=== PATIENT | female | born 1960 | race Caucasian/White ===

== ENCOUNTER 2016-12-29 22:26 | Emergency (ER) | payer OTHER ==
[~2016-12-29] VITALS: Ht 165.1 cm; Wt 104.8 kg
[~2016-12-29 22:26] MED LIST: ALBUAER2 INH; ASPI-435 PO; ATOR80TA PO; BUSP5TAB59 PO; CARV25TA2 PO; FENO67CA PO; FLUO40CA8 PO; FRN PO; FRS/40 PO; GABA300C19 PO; GLIP10TA9 PO; LISI-461 PO; METF1000 PO; NTRGSL/4 UT; PLV75 PO; TIZA1CAP2 PO; TRAM-10 PO; TRAZ50TA35 PO
[2016-12-29 22:33] VITALS: TEMP 37; Ht 165.1 cm; Wt 104.8 kg
[2016-12-29] MEDS ORDERED: ALBUT/IPRATROP 3MG/0.5MG NEB 3 ML VIAL INH STA (23:34)
[2016-12-29 23:44] LABS: BASO % 0.6 %; BASO ABS # 0.04 K/uL (0-0.2); COMPLETE YES; HEMATOCRIT 33.5 % (37-47); IG% 0.2 %; LYMPH % 31.3 %; LYMPH ABS # 1.99 K/uL (1.2-3.4); MEAN CELL VOLUME 90.3 fL (80-100); MEAN CORPUSCULAR HEMOGLOBIN 30.2 pg (25-34); MEAN CORPUSCULAR HGB CONC 33.4 g/dl (32-36); MEAN PLATELET VOLUME 9.8 fL (7.4-10.4); MONO % 10.2 %; NEUT % 54.7 %; PLATELET COUNT 339 K/uL (130-400); RED BLOOD COUNT 3.71 M/uL (4.2-5.4); WHITE BLOOD COUNT 6.36 K/uL (4.8-10.8)
[2016-12-30 00:04] LABS: INR 0.9 (0.9-1.1); PARTIAL THROMBOPLASTIN RATIO 0.9
[2016-12-30 00:06] LABS: BUN/CREATININE RATIO 28.5 (10-20); CREATININE 1.3 mg/dl (0.60-1.20); MAGNESIUM 1.8 mg/dl (1.8-2.4); POTASSIUM 4.6 mmol/L (3.5-5.1)
[2016-12-30] MEDS ORDERED: VNTHFA/IN INH (00:13)
[2016-12-30] MEDS ORDERED: KETO10TA PO (00:15)
[2016-12-30] MEDS ORDERED: HYDR-5688 PO (00:15)
[2016-12-30 00:16] LABS: ALB/GLOB RATIO 0.8 (0.9-2); CKMB/CK RATIO 1.5 (0-3.0); THYROID STIMULATING HORMONE 2.88 uIu/ml (0.300-4.500)
[2016-12-30] MEDS ORDERED: ACETAMINOPHEN 500 MG TAB PO STA (00:55)
[2016-12-30 01:01] VITALS: O2SAT 96
[2016-12-30 01:24] LABS: URINE APPEARANCE CLEAR (CLEAR); URINE BILIRUBIN NEG (NEG); URINE COLOR YELLOW; URINE EPITHELIAL CELL AUTO 20-30 /lpf (0-5); URINE NITRITE NEG (NEG); URINE PH 5.5 (4.5-7.5); URINE SPECIFIC GRAVITY 1.027 (1.000-1.030); UROBILINOGEN NEG (NEG); ZZUR CULT IF INDIC CLEAN CATCH NO
[2016-12-30 01:25] LABS: MANUAL MICROSCOPIC REQUIRED? NO; REVIEW REQ? NO
[2016-12-30] MEDS ORDERED: ZTHM250 PO (02:26)
--- NOTE | 2016-12-30 02:27 | EMERGENCY ROOM VISIT NOTE ---
History First contact with patient: 23:01 Chief Complaint: ILLNESS Stated Complaint: COUGHING, HEADACHE, ARMS ACHE, WEAKNESS History of Present Illness The patient is a 56 year old female who presents to the Emergency Department by private vehicle for evaluation of her cough, body aches, lightheadedness, headaches, and fevers. She reports that she's had a cough for approximately 1.5 weeks. She does have a history of COPD and uses her inhalers. She has used her inhalers without relief of symptoms. She reports that her symptoms worsened yesterday which prompted her visit to the emergency department. She was unable to establish an appointment with her primary care provider. The patient is tried no [id number] medications for her symptoms as she reports that they interact with her diagnosis of hypertension. The patient denies any blurry vision, double vision, slurred speech, facial droop, unilateral weakness/numbness, chest pain, pleuritic pain, hemoptysis, nausea, vomiting, or abdominal pain. She reports no hematuria or dysuria. Review of Systems A complete 10-point Review of Systems was discussed with the patient, with pertinent positives and negatives listed in the History of Present Illness. All remaining Review of Systems questions can be considered negative unless otherwise specified. Past Medical/Surgical History Medical Problems: (1) CAD (coronary artery disease) (2) Chronic systolic heart failure (3) CKD (chronic kidney disease), stage III (4) DM type 2 (diabetes mellitus, type 2) (5) Dyslipidemia (6) Heart disease (7) History of migraine (8) Hypertension (9) Ischemic cardiomyopathy (10) Myocardial infarction (11) OCD (obsessive compulsive disorder) (12) DANGELO (obstructive sleep apnea) Surgical Problems: (1) S/P cardiac cath Family History Heart disease Social History Smoking Status: Never Smoker Smokeless Tobacco Use: No Alcohol Use: none Drug Use: none Marital Status: Housing Status: lives with family Occupation Status: employed Current/Historical Medications Scheduled Aspirin (Aspirin 81), 81 MG PO DAILY Atorvastatin Calcium (Lipitor), 80 MG PO DAILY Azithromycin (Azithromycin), 1 TAB PO DAILY Buspirone Hcl (Buspirone Hcl), 5 MG PO BID Carvedilol (Coreg), 25 MG PO BID Clopidogrel Bisulfate (Clopidogrel), 75 MG PO QAM Fenofibrate Micronized (Tricor), 67 MG PO DAILY Fluoxetine (Prozac), 80 MG PO DAILY Furosemide (Lasix), 40 MG PO DAILY Gabapentin (Neurontin), 300 MG PO TID Glipizide (Glucotrol), 10 MG PO BID Lisinopril (Lisinopril), 10 MG PO DAILY Metformin Hcl (Glucophage), 1,000 MG PO BIDM Tizanidine Hcl (Tizanidine Hcl), 4 MG PO TID Scheduled PRN Albuterol Hfa (Ventolin Hfa), 1-2 PUFFS INH Q4 PRN for SOB/Wheezing Hydrocodone/Acetaminophen 5MG/325MG ([place] 5MG/325MG), 1 TABLET PO Q4 PRN for Pain Ketorolac (Toradol), 10 MG PO UD PRN for Migraine Nitroglycerin (Nitrostat), 0.4 MG UT UD PRN for Chest Pain Tramadol (Ultram), 50 MG PO Q6 PRN for Pain Trazodone Hcl (Trazodone), 50 MG PO HS PRN for Sleep Allergies Coded Allergies: No Known Allergies (Unverified , 12/30/16) Physical Exam Vital Signs Date Time Temp Pulse Resp B/P Pulse Ox O2 Delivery O2 Flow Rate FiO2 12/30/16 02:55 96 20 171/91 98 12/30/16 02:29 164/103 12/30/16 02:04 106 24 99 Nasal Cannula 2.0 12/30/16 01:59 159/90 12/30/16 01:34 105 22 96 Nasal Cannula 2.0 12/30/16 01:29 163/91 12/30/16 01:04 102 16 12/30/16 01:01 101 19 96 Nasal Cannula 2.0 12/30/16 01:01 96 Nasal Cannula 2.0 12/30/16 00:59 163/82 12/30/16 00:58 105 25 163/82 85 Room Air 12/30/16 00:34 101 15 94 12/30/16 00:29 126/73 12/30/16 00:26 101 27 90 12/29/16 23:59 144/72 12/29/16 23:56 99 13 93 12/29/16 23:49 96 12/29/16 23:39 95 Room Air 12/29/16 23:36 97 18 132/69 95 Room Air 12/29/16 23:35 132/69 2/26/17 22:33 37.0 100 20 135/86 92 Room Air Pain Rating (0-10): 7 Physical Exam VITAL SIGNS - Vital signs and nursing notes were reviewed. GENERAL - 56-year-old female appearing older than her stated age who is in no acute distress. Communicates well with provider and answers questions appropriately. HEAD - NC/AT. EYES - PERRL with EOMI bilaterally. Sclera anicteric. Palpebral conjunctiva pink and moist with no injection noted. EARS - No deformities of external structures noted on gross examination bilaterally. No pain elicited with palpation of the tragus bilaterally. External auditory canals without discharge or otorrhea. Tympanic membranes pearly [place] without retraction or bulging. NOSE - Midline and without cyanosis. No epistaxis or purulent drainage noted. Septum midline without deviation or septal hematoma noted. MOUTH/OROPHARYNX - Without perioral cyanosis. Buccal mucosa pink and moist and without leukoplakia. Tongue midline with equal elevation of palate bilaterally. No tonsillar hypertrophy, erythema, or exudates noted. NECK - Neck with FROM. Supple to palpation. LUNGS - Chest wall symmetric without accessory muscle use, intercostals retractions, or central cyanosis. Normal vesicular breath sounds CTA B/L. No wheezes, rales, or rhonchi appreciated. CARDIAC - RRR with S1/S2. No murmur, rubs, or gallops appreciated. No reproducible tenderness to palpation appreciated over the anterior chest wall. ABDOMEN - Abdominal contour obese and without pulsations or visible masses. BS normoactive all four quadrants. No tenderness, palpable masses, hepatosplenomegaly, or ascites noted. EXTREMITIES - No clubbing or peripheral cyanosis. No pretibial edema present. +3 /5 radial and dorsalis pedis pulses palpated throughout. +5/5 strength noted in UE/LE bilaterally. NEUROLOGIC - Cranial nerves II through XII grossly intact. Sensory intact to light touch throughout. PSYCH - A&Ox3 and cooperates fully with examiner. Pt is very pleasant and interacts well with examiner. Medical Decision & Procedures ER Provider Diagnostic Interpretation: Radiological imaging and reports were reviewed by myself. Radiologist's Interpretation as follows: CHEST ONE VIEW PORTABLE CLINICAL HISTORY: cough/fever dyspnea COMPARISON STUDY: 12/27/2015 FINDINGS: The bones soft tissues and hemidiaphragms are normal. The cardiomediastinal silhouette is normal. The lungs are clear. The pulmonary vasculature is normal. IMPRESSION: Negative chest. Laboratory Results 12/29/16 23:35 Red Blood Count 3.71, Mean Corpuscular Volume 90.3, Mean Corpuscular Hemoglobin 30.2, Mean Corpuscular Hemoglobin Concent 33.4, Mean Platelet Volume 9.8, Neutrophils (%) (Auto) 54.7, Lymphocytes (%) (Auto) 31.3, Monocytes (%) (Auto) 10.2, Eosinophils (%) (Auto) 3.0, Basophils (%) (Auto) 0.6, Neutrophils # (Auto ) 3.48, Lymphocytes # (Auto) 1.99, Monocytes # (Auto) 0.65, Eosinophils # (Auto ) 0.19, Basophils # (Auto) 0.04 12/29/16 23:35 Test 12/29/16 23:35 12/29/16 23:43 12/29/16 23:50 12/29/16 23:55 White Blood Count 6.36 K/uL (4.8-10.8) Red Blood Count 3.71 M/uL (4.2-5.4) Hemoglobin 11.2 g/dL (12.0-16.0) Hematocrit 33.5 % (37-47) Mean Corpuscular Volume 90.3 fL (80-100) Mean Corpuscular Hemoglobin 30.2 pg (25-34) Mean Corpuscular Hemoglobin Concent 33.4 g/dl (32-36) Platelet Count 339 K/uL (130-400) Mean Platelet Volume 9.8 fL (7.4-10.4) Neutrophils (%) (Auto) 54.7 % Lymphocytes (%) (Auto) 31.3 % Monocytes (%) (Auto) 10.2 % Eosinophils (%) (Auto) 3.0 % Basophils (%) (Auto) 0.6 % Neutrophils # (Auto) 3.48 K/uL (1.4-6.5) Lymphocytes # (Auto) 1.99 K/uL (1.2-3.4) Monocytes # (Auto) 0.65 K/uL (0.11-0.59) Eosinophils # (Auto) 0.19 K/uL (0-0.5) Basophils # (Auto) 0.04 K/uL (0-0.2) RDW Standard Deviation 43.4 fL (36.4-46.3) RDW Coefficient of Variation 13.3 % (11.5-14.5) Immature Granulocyte % (Auto) 0.2 % Immature Granulocyte # (Auto) 0.01 K/uL (0.00-0.02) Prothrombin Time 10.0 SECONDS (9.0-12.0) Prothromb Time International Ratio 0.9 (0.9-1.1) Activated Partial Thromboplast Time 23.6 SECONDS (21.0-31.0) Partial Thromboplastin Ratio 0.9 Anion Gap 6.0 mmol/L (3-11) Est Creatinine Clear Calc Drug Dose 58.8 ml/min Estimated GFR () 53.5 Estimated GFR (Non- 46.1 BUN/Creatinine Ratio 28.5 (10-20) Calcium Level 9.0 mg/dl (8.5-10.1) Magnesium Level 1.8 mg/dl (1.8-2.4) Total Bilirubin 0.2 mg/dl (0.2-1) Aspartate Amino Transf (AST/SGOT) 12 U/L (15-37) Alanine Aminotransferase (ALT/SGPT) 21 U/L (12-78) Alkaline Phosphatase 83 U/L (45-117) Total Creatine Kinase 71 U/L (26-192) Creatine Kinase MB 1.1 ng/ml (0.5-3.6) Creatine Kinase MB Ratio 1.5 (0-3.0) Total Protein 7.0 gm/dl (6.4-8.2) Albumin 3.0 gm/dl (3.4-5.0) Globulin 4.0 gm/dl (2.5-4.0) Albumin/Globulin Ratio 0.8 (0.9-2) Lipase 570 U/L (73-393) Thyroid Stimulating Hormone (TSH) 2.880 uIu/ml (0.300-4.500) Bedside Troponin I 0.000 ng/ml (0-0.045) Urine Color YELLOW Urine Appearance CLEAR (CLEAR) Urine pH 5.5 (4.5-7.5) Urine Specific [place] 1.027 (1.000-1.030) Urine Protein 2+ (NEG) Urine Glucose (UA) 3+ (NEG) Urine Ketones NEG (NEG) Urine Occult Blood NEG (NEG) Urine Nitrite NEG (NEG) Urine Bilirubin NEG (NEG) Urine Urobilinogen NEG (NEG) Urine Leukocyte Esterase NEG (NEG) Urine WBC (Auto) 1-5 /hpf (0-5) Urine RBC (Auto) 0-4 /hpf (0-4) Urine Hyaline Casts (Auto) 1-5 /lpf (0-5) Urine Epithelial Cells (Auto) 20-30 /lpf (0-5) Urine Bacteria (Auto) NEG (NEG) Influenza Type A Antigen Neg for Influ A (NEG) Influenza Type B Antigen Neg for Influ B (NEG) Medications Administered Medications (Trade) Dose Ordered Sig/Chantale Route Start Time Stop Time Status Last Admin Dose Admin Albuterol/ Ipratropium (Duoneb) 3 ml NOW STAT INH 12/29/16 23:34 12/29/16 23:37 DC 12/29/16 23:54 3 ML Acetaminophen (Tylenol Tab) 1,000 mg NOW STAT PO 12/30/16 00:55 12/30/16 00:56 DC 12/30/16 01:04 1,000 MG Azithromycin (Zithromax Tab) 500 mg NOW ONCE PO 12/30/16 02:30 12/30/16 02:31 DC 12/30/16 02:30 500 MG Procedure Patient was placed on the personnel monitor and monitored throughout the entire extent of their stay. In addition, the patient's pulse oximetry was monitored throughout the entire stay. Any abnormalities or aberrancies were addressed appropriately. ECG Indication: chest pain, SOB/dyspnea Rate (beats per minute): 97 Rhythm: normal sinus Findings: no acute ischemic change, no ectopy Change: no significant change (from 12/27/2015.) ED Course Patient was seen and evaluated by myself. Previous emergency department visit notes were reviewed. Labs were drawn, saline lock in place. Patient was treated with 1 DuoNeb. She claims a mild headache. She was provided 1 g of Tylenol orally. EKG and chest x-rays were obtained. Laboratory results demonstrate no acute leukocytosis, significant anemia, or bandemia. The patient has mild elevation of her creatinine which appears to be her baseline. She has no elevation of her cardiac enzymes. Troponin is negative. Lipase was mildly elevated and likely noncontributory to patient's current symptoms. Urinalysis does not suggest infection. Patient was reevaluated and feels much better at this time. She is sleeping in the room without issue. The patient was treated with azithromycin for ongoing symptoms and concerning history of COPD as well as diabetes and heart disease. She will follow up closely with her primary care provider 24-48 hours for recheck. She will return for any changing/worsening symptoms. Patient discharged home afebrile and in good condition. Medical Decision Given the patient's presentation and stated complaints, I did elect to perform the above-mentioned workup. The patient resents today with multiple symptoms consistent with upper respiratory infection. She has no fever. There is no leukocytosis. There is no acute consolidations the lungs. Cardiac enzymes and EKG are unremarkable and do not suggest acute coronary injury. The patient responded well to DuoNeb. She was treated with azithromycin and will continue on this medication for the next few days. She will follow-up with her primary care provider from today's visit or return in the setting of any changing or worsening symptoms. Patient discharged home in good condition. In the evaluation and treatment of this patient, the following differential diagnoses were considered: ME, ASC, Dysrhythmia, Angina, Mediastinitis, GERD, Esophagitis, PE, Pneumonia, Bronchitis, Costochondritis, Rib Fracture, Zoster. Impression Primary Impression: Acute bronchitis Departure Information Dispostion Home / Self-Care Condition GOOD Prescriptions Azithromycin (Azithromycin) 250 Mg Tab 1 TAB PO DAILY for 4 Days, #4 TAB Prov: Ye Sosa PA-C 12/30/16 Referrals Orion Murray D.O. (PCP) Patient Instructions Bronchitis Acute, My [facility] Additional Instructions You've been seen in the emergency department today for your cough, fever, bodyaches - acute bronchitis. Please use your albuterol inhaler 2 puffs every 4-6 hours for the next 3-4 days and then as needed for cough. You were prescribed Azithromycin to be taken as prescribed. This is an antibiotic. All antibiotics have the potential to cause diarrhea. Stop this medication and contact a medical provider if you were to develop any significant adverse side effects including: wheezing, shortness of breath, passing out, vomiting, or a diffuse rash. Always take antibiotics as directed and COMPLETE the ENTIRE course regardless of the improvement of your symptoms. For pain control, you can use the following [id number] medicines (if >12 yo): - Regular strength (325mg/tab) Tylenol (acetaminophen) 2 tabs every 4-6 hours as needed. Do not exceed 12 tablets in a 24 hour period. Avoid taking more than 4 grams (4000 mg) of Tylenol per day. This includes any other sources of acetaminophen you may take on a regular basis. - Regular strength (200 mg/tab) Advil (ibuprofen) 1-2 tabs every 4-6 hours as needed. Do not exceed a dose of 3200 mg per day. Follow-up with your primary care provider tomorrow as discussed. Return for any changing or worsening symptoms. Problem Qualifiers Primary Impression: Acute bronchitis Bronchitis organism: unspecified organism Qualified Codes: J20.9 - Acute bronchitis, unspecified
[2016-12-30] MEDS ORDERED: AZITHROMYCIN 250 MG TAB PO ONE (02:30)
[2016-12-30 02:55] VITALS: BP 171/91; PULSE 96; O2SAT 98
--- NOTE | 2016-12-30 07:03 | DIAGNOSTIC IMAGING REPORT ---
CHEST ONE VIEW PORTABLE CLINICAL HISTORY: cough/fever dyspnea COMPARISON STUDY: 12/27/2015 FINDINGS: The bones soft tissues and hemidiaphragms are normal. The cardiomediastinal silhouette is normal. The lungs are clear. The pulmonary vasculature is normal. IMPRESSION: Negative chest. Electronically signed by: Jordan Mitchell M.D. 12/30/2016 7:02 AM Dictated Date/Time: 12/30/2016 6:59 AM
[2017-05-01] MEDS ORDERED: CEPH500C PO (01:52)
[2017-05-01] MEDS ORDERED: FLUC150T PO (01:52)
== END 2016-12-30 02:56 | disposition home or self-care (01) ==
LOC: C.EDB 22:27 → C.EDA 12-30 02:56
DX: J20.9 Acute bronchitis, unspecified (principal); I25.10 Atherosclerotic heart disease of native coronary artery without angina pectoris; I50.22 Chronic systolic (congestive) heart failure; N18.3 Chronic kidney disease, stage 3 (moderate); E11.9 Type 2 diabetes mellitus without complications; E78.5 Hyperlipidemia, unspecified; G43.909 Migraine, unspecified, not intractable, without status migrainosus; I12.9 Hypertensive chronic kidney disease with stage 1 through stage 4 chronic kidney disease, or unspecified chronic kidney disease; I25.5 Ischemic cardiomyopathy; I25.2 Old myocardial infarction; F42.9 Obsessive-compulsive disorder, unspecified; G47.33 Obstructive sleep apnea (adult) (pediatric); Z82.49 Family history of ischemic heart disease and other diseases of the circulatory system; Z79.82 Long term (current) use of aspirin; Z79.899 Other long term (current) drug therapy

== ENCOUNTER 2017-05-04 21:59 | Emergency (ER) | payer OTHER ==
[~2017-05-04] VITALS: Ht 165.1 cm; Wt 100.8 kg
[~2017-05-04 21:59] MED LIST changes: -ALBUAER2 INH; +CEPH500C PO; +FLUC150T PO; -FRN PO; +HYDR-5688 PO; +KETO10TA PO; +VNTHFA/IN INH; +ZTHM250 PO
[2017-05-04 22:02] VITALS: TEMP 37.1; Ht 165.1 cm; Wt 100.8 kg
[2017-05-04] MEDS ORDERED: MoRPHine SULFATE 4 MG/ML 1 ML CARP\\VIAL IV STA (23:22)
[2017-05-04] MEDS ORDERED: SODIUM CHLORIDE 0.9% 500ML 500 ML IV STA (23:22)
[2017-05-04] MEDS ORDERED: ONDANSETRON INJ 2 MG/ML 2 ML VIAL IV STA (23:22)
[2017-05-04 23:48] LABS: BASO % 0.1 %; BASO ABS # 0.01 K/uL (0-0.2); COMPLETE YES; EOS % 0.9 %; IG% 0.2 %; LYMPH % 15.8 %; LYMPH ABS # 1.46 K/uL (1.2-3.4); MEAN CELL VOLUME 91.2 fL (80-100); MEAN CORPUSCULAR HEMOGLOBIN 30.2 pg (25-34); MEAN CORPUSCULAR HGB CONC 33.1 g/dl (32-36); MEAN PLATELET VOLUME 9.3 fL (7.4-10.4); MONO % 10.3 %; NEUT % 72.7 %; PLATELET COUNT 381 K/uL (130-400); RED BLOOD COUNT 3.51 M/uL (4.2-5.4); WHITE BLOOD COUNT 9.26 K/uL (4.8-10.8)
[2017-05-05 00:05] LABS: ALT/SGPT 16 U/L (12-78); BLOOD UREA NITROGEN 26 mg/dl (7-18); BUN/CREATININE RATIO 17.3 (10-20); CALCIUM 8.9 mg/dl (8.5-10.1); CARBON DIOXIDE 30 mmol/L (21-32); CHLORIDE 100 mmol/L (98-107); GLUCOSE 308 mg/dl (70-99); POTASSIUM 4.4 mmol/L (3.5-5.1); SODIUM 137 mmol/L (136-145)
[2017-05-05 00:07] LABS: AST/SGOT 11 U/L (15-37)
[2017-05-05 00:15] LABS: ALKALINE PHOSPHATASE 67 U/L (45-117); BETA-HYDROXYBUTYRATE 0.59 mg/dL (0.2-2.81)
[2017-05-05] MEDS ORDERED: MoRPHine SULFATE 4 MG/ML 1 ML CARP\\VIAL IV STA (01:26)
[2017-05-05] MEDS ORDERED: AMLO2.5T PO (01:44)
[2017-05-05] MEDS ORDERED: CARV12.5 PO (01:45)
[2017-05-05] MEDS ORDERED: LISI-729 PO (01:48)
[2017-05-05] MEDS ORDERED: PANT40TA PO (01:48)
[2017-05-05] MEDS ORDERED: MECL-91 PO (01:48)
[2017-05-05] MEDS ORDERED: METF500T PO (01:48)
[2017-05-05] MEDS ORDERED: FERR1TAB13 PO (01:49)
[2017-05-05] MEDS ORDERED: ONDA4TAB46 PO (01:50)
[2017-05-05] MEDS ORDERED: ASCA500 PO (01:50)
[2017-05-05] MEDS ORDERED: TRAZ100T29 PO (01:50)
[2017-05-05] MEDS ORDERED: VENL225T27 PO (01:52)
[2017-05-05 02:01] VITALS: BP 121/63; PULSE 84; O2SAT 98
--- NOTE | 2017-05-05 03:10 | EMERGENCY ROOM VISIT NOTE ---
History Report prepared by Leandro: Francis Villa Under the Supervision of: Dr. Km Young D.O. First contact with patient: 23:10 Chief Complaint: NECK PAIN Stated Complaint: DIZZINESS, PAIN IN UPPER CHEST AND ARM, NAUSEA History of Present Illness The patient is a 57 year old female who presents to the Emergency Room with complaints of worsening neck pain starting a three days ago. She rates her pain as an 8/10 in severity. The patient states that she woke up with her symptoms three days ago which prompted her to visit the ED at [facility]. She reports that she had a CT scan done which showed no significant results and she had no infections presents. The patient states that she was sent home, but went to her PCP two days ago and was given Vicodin. She reports that after her appointment, she called for a follow up with her ENT doctor in [facility], but states she is not able to get an appointment for another three days. The patient states that she has been experiencing weakness, nausea when pain gets bad, and pain when swallowing, which has been causing her to eat less. She reports that she was able to eat this morning when she took her Keflex dose and is able to swallow fluids. The patient states that her neck pain is worsened with movement of her neck which includes twisting turning bending. She reports that she tried to alleviate her pain with ice pads and hot showers, but denies any relief of symptoms. The patient admits to a history of congestive heart failure and two previous heart attacks, but denies any personal cancer history. The patient denies headache, dental pain, change in vision, fevers, chest pain, shortness of breath, vomiting, diarrhea, ear pain, pain with urination, edema to her legs, and melena. Source of History: patient Onset: three days ago Position: neck Symptom Intensity: 8/10 Timing: worsening Modifying Factors (Worsening): breathing, movement, other (pressure) Associated Symptoms: + nausea, + weakness Review of Systems See HPI for pertinent positives & negatives. A total of 10 systems reviewed and were otherwise negative. Past Medical & Surgical Medical Problems: (1) CAD (coronary artery disease) (2) Chronic systolic heart failure (3) CKD (chronic kidney disease), stage III (4) DM type 2 (diabetes mellitus, type 2) (5) Dyslipidemia (6) Heart disease (7) History of migraine (8) Hypertension (9) Ischemic cardiomyopathy (10) Myocardial infarction (11) OCD (obsessive compulsive disorder) (12) DANGELO (obstructive sleep apnea) Surgical Problems: (1) S/P cardiac cath Family History Heart disease Social History Smoking Status: Never Smoker Alcohol Use: none Drug Use: none Marital Status: Housing Status: lives with family Occupation Status: employed Current/Historical Medications Scheduled Amlodipine (Norvasc), 2.5 MG PO DAILY Ascorbic Acid (Vitamin C), 500 MG PO TID Aspirin (Aspirin 81), 81 MG PO DAILY Atorvastatin Calcium (Lipitor), 80 MG PO DAILY Buspirone Hcl (Buspirone Hcl), 10 MG PO DAILY Carvedilol (Coreg), 12.5 MG PO BID Cephalexin Monohydrate (Keflex), 500 MG PO TID Clopidogrel Bisulfate (Clopidogrel), 75 MG PO QAM Fenofibrate Micronized (Tricor), 67 MG PO DAILY Ferrous Sulfate (Kp Ferrous Sulfate), 1 TAB PO TIDM Fluconazole (Diflucan), 150 MG PO WK Fluoxetine (Prozac), 80 MG PO DAILY Furosemide (Lasix), 40 MG PO DAILY Gabapentin (Neurontin), 300 MG PO TID Glipizide (Glucotrol), 10 MG PO BID Lisinopril (Prinivil), 5 MG PO DAILY Metformin Hcl (Glucophage), 500 MG PO BID Pantoprazole (Protonix), 40 MG PO DAILY Trazodone Hcl (Trazodone), 100 MG PO HS Venlafaxine Hcl (Venlafaxine Hcl Er), 1 TAB PO DAILY Scheduled PRN Albuterol Hfa (Ventolin Hfa), 1-2 PUFFS INH Q4 PRN for SOB/Wheezing Hydrocodone/Acetaminophen 5MG/325MG ([place] 5MG/325MG), 1 TABLET PO Q6 PRN for Pain Meclizine HCl (Meclizine 25), 25 MG PO Q8 PRN for Dizziness or Vertigo Nitroglycerin (Nitrostat), 0.4 MG UT UD PRN for Chest Pain Ondansetron Hcl (Zofran), 4 MG PO Q6 PRN for Nausea Tramadol (Ultram), 50 MG PO Q6 PRN for Pain Allergies Coded Allergies: No Known Allergies (Unverified , 7/3/17) Physical Exam Vital Signs Date Time Temp Pulse Resp B/P (MAP) Pulse Ox O2 Delivery O2 Flow Rate FiO2 05/05/17 02:01 84 16 121/63 98 05/05/17 00:52 90 18 133/73 96 Room Air 05/04/17 23:44 90 18 121/71 97 Room Air 05/04/17 22:02 37.1 94 20 123/68 97 Room Air Physical Exam GENERAL: Sleeping in bed, awakens to voice, well appearing, well nourished, no distress, non-toxic EYE EXAM: normal conjunctiva, PERRL and EOM's grossly intact OROPHARYNX: no exudate, no erythema, lips, buccal mucosa, and tongue normal and mucous membranes are moist NECK: Severe tenderness upon palpation over the right anterior cervical chain with small nodular mass appreciated just above the clavicle. Pain worsens with range of motion with head in all directions. supple, no nuchal rigidity. LUNGS: Clear to auscultation. Normal chest wall mechanics HEART: no murmurs, S1 normal and S2 normal ABDOMEN: abdomen soft, non-tender, normo-active bowel sounds, no masses, no rebound or guarding. BACK: Back is symmetrical on inspection and there is no deformity, no midline tenderness, no CVA tenderness. SKIN: no rashes and no bruising UPPER EXTREMITIES: upper extremities are grossly normal. No lymphadenopathy in axilla. Radial Pulses equal bilaterally LOWER EXTREMITIES: No pitting edema. NEURO EXAM: Normal sensorium Medical Decision & Procedures ER Provider Diagnostic Interpretation: Radiology results as stated below per my review and my interpretation: CT Soft Tissue Neck WO 05/01/2017 IMPRESSION: Enlarged right level 4 cervical lymph node just lateral to the right thyroid gland measuring 2.7 x 2.4 cm. This is suspicious. Tissue sampling may be considered. No other enlarged lymph nodes are seen of the neck. No discrete mass lesions are seen of the neck. Laboratory Results 05/04/17 23:35 Red Blood Count 3.51, Mean Corpuscular Volume 91.2, Mean Corpuscular Hemoglobin 30.2, Mean Corpuscular Hemoglobin Concent 33.1, Mean Platelet Volume 9.3, Neutrophils (%) (Auto) 72.7, Lymphocytes (%) (Auto) 15.8, Monocytes (%) (Auto) 10.3, Eosinophils (%) (Auto) 0.9, Basophils (%) (Auto) 0.1, Neutrophils # (Auto ) 6.74, Lymphocytes # (Auto) 1.46, Monocytes # (Auto) 0.95, Eosinophils # (Auto ) 0.08, Basophils # (Auto) 0.01 05/04/17 23:35 Test 05/04/17 23:35 White Blood Count 9.26 K/uL (4.8-10.8) Red Blood Count 3.51 M/uL (4.2-5.4) Hemoglobin 10.6 g/dL (12.0-16.0) Hematocrit 32.0 % (37-47) Mean Corpuscular Volume 91.2 fL (80-100) Mean Corpuscular Hemoglobin 30.2 pg (25-34) Mean Corpuscular Hemoglobin Concent 33.1 g/dl (32-36) Platelet Count 381 K/uL (130-400) Mean Platelet Volume 9.3 fL (7.4-10.4) Neutrophils (%) (Auto) 72.7 % Lymphocytes (%) (Auto) 15.8 % Monocytes (%) (Auto) 10.3 % Eosinophils (%) (Auto) 0.9 % Basophils (%) (Auto) 0.1 % Neutrophils # (Auto) 6.74 K/uL (1.4-6.5) Lymphocytes # (Auto) 1.46 K/uL (1.2-3.4) Monocytes # (Auto) 0.95 K/uL (0.11-0.59) Eosinophils # (Auto) 0.08 K/uL (0-0.5) Basophils # (Auto) 0.01 K/uL (0-0.2) RDW Standard Deviation 44.2 fL (36.4-46.3) RDW Coefficient of Variation 13.2 % (11.5-14.5) Immature Granulocyte % (Auto) 0.2 % Immature Granulocyte # (Auto) 0.02 K/uL (0.00-0.02) Anion Gap 7.0 mmol/L (3-11) Est Creatinine Clear Calc Drug Dose 49.3 ml/min Estimated GFR () 44.7 Estimated GFR (Non- 38.5 BUN/Creatinine Ratio 17.3 (10-20) Calcium Level 8.9 mg/dl (8.5-10.1) Total Bilirubin 0.2 mg/dl (0.2-1) Direct Bilirubin 0.1 mg/dl (0-0.2) Aspartate Amino Transf (AST/SGOT) 11 U/L (15-37) Alanine Aminotransferase (ALT/SGPT) 16 U/L (12-78) Alkaline Phosphatase 67 U/L (45-117) Troponin I < 0.015 ng/ml (0-0.045) Total Protein 7.2 gm/dl (6.4-8.2) Albumin 2.9 gm/dl (3.4-5.0) Lipase 592 U/L (73-393) Beta-Hydroxybutyric Acid 0.59 mg/dL (0.2-2.81) Laboratory results per my review. Medications Administered Medications (Trade) Dose Ordered Sig/Chantale Route Start Time Stop Time Status Last Admin Dose Admin Sodium Chloride 500 ml @ 999 mls/hr Q31M STAT IV 05/04/17 23:22 05/04/17 23:52 DC 05/04/17 23:53 999 MLS/HR Ondansetron HCl (Zofran Inj) 4 mg NOW STAT IV 05/04/17 23:22 05/04/17 23:23 DC 05/04/17 23:52 4 MG Morphine Sulfate (MoRPHine SULFATE INJ) 4 mg NOW STAT IV 05/04/17 23:22 05/04/17 23:23 DC 05/04/17 23:53 4 MG Morphine Sulfate (MoRPHine SULFATE INJ) 2 mg NOW STAT IV 05/05/17 01:26 05/05/17 01:27 DC 05/05/17 01:43 2 MG ECG Indication: nausea Rate (beats per minute): 96 Rhythm: sinus rhythm Findings: no ectopy, other (normal axis) Comparison ECG Date: 12/29/16 Change: no significant change ED Course ED COURSE: Vital signs were reviewed and showed normal The patients medical record was reviewed The above diagnostic studies were performed and reviewed. ED treatments and interventions as stated above. 2313: The patient was evaluated in room B10. A complete history and physical examination was performed. 2322: Morphine Sulfate 4 mg IV, Zofran Injection 4 mg IV, Sodium Chloride 500 ml @ 999 mls/hr IV. 0126: Morphine Sulfate 2 mg IV. 0130: Upon reevaluation, the patient is feeling better. I discussed the findings and the treatment plan with the patient. She verbalizes agreement and understanding. She was discharged home. Medical Decision The differential diagnosis includes but is not limited to: ACD, Meningitis, lymphadenopathy, cancer, infection, metabolic abnormality, pharyngeal abscess, peritonsillar abscess. Medication Reconciliation: I attest that I have personally reviewed the patient' s current medication list. Blood pressure screening: Patient was found to have normal blood pressure on screening and does not require follow-up. Patient is a 57 year old female who presents the ER for severe right sided neck pain. She notes she was seen on at an outside hospital with a CT for the pain. She woke up with the pain. CT showed a lymph node without signs of infection. Patient is drinking without difficulty. There is no airway involvement. She is otherwise well-appearing. No obvious adenopathy elsewhere. She denies any chest pain. Troponin was negative. She notes this does not feel like her previous MIs. Labs were obtained. CBC shows an mild anemia. BMP was unremarkable along with LFTs and bilirubin. Lipase is slightly elevated at 590. BSG was also elevated. Beta hydroxybutyric acid negative. I favor the lipase is likely elevated secondary to the pain. She has no vomiting. She has no abdominal pain. I did not appreciate any large mass and consequently did not feel it is prudent to repeat CAT scan at this time. She has no fevers or white count to suggest infectious process. Patient was updated bedside and was discharged follow-up with ENT as previously set up by outside hospital. Discussed with Pt concerning signs and symptoms to watch out for. Pt was instructed to follow up with their PCP and discussed with the patient their option to return to the ED at anytime for persistent or worsening symptoms. The appropriate anticipatory guidance and out-patient management, including indications for return to the emergency department, were explained at length to the patient and understood. Impression Primary Impression: Neck pain on right side Additional Impressions: Enlarged lymph node Anemia Scribe Attestation The scribe's documentation has been prepared under my direction and personally reviewed by me in its entirety. I confirm that the note above accurately reflects all work, treatment, procedures, and medical decision making performed by me. Departure Information Dispostion Home / Self-Care Referrals Orion Murray D.O. (PCP) Forms HOME CARE DOCUMENTATION FORM, IMPORTANT VISIT INFORMATION, WORK / SCHOOL INSTRUCTIONS Patient Instructions My [facility] Additional Instructions Please follow up with your primary care doctor with in the next 24 hours. Any worsening of your symptoms, please return to the ED immediately. This includes fevers greater than 100.4, inability to open and close her mouth, trouble breathing, trouble swallowing, or any other concerning signs or symptoms from her standpoint. The CT from [place] showed a cervical lymph node just lateral to the right thyroid 2.4x2.7 cm. This is a suspicious lymph node and should be followed up on by your primary care doctor and ENT within one week. Problem Qualifiers Additional Impressions: Anemia Anemia type: unspecified type Qualified Codes: D64.9 - Anemia, unspecified
== END 2017-05-05 02:02 | disposition home or self-care (01) ==
LOC: C.EDB 22:01
DX: M54.2 Cervicalgia (principal); R59.9 Enlarged lymph nodes, unspecified; D64.9 Anemia, unspecified; I25.10 Atherosclerotic heart disease of native coronary artery without angina pectoris; I50.20 Unspecified systolic (congestive) heart failure; N18.3 Chronic kidney disease, stage 3 (moderate); E11.9 Type 2 diabetes mellitus without complications; E78.5 Hyperlipidemia, unspecified; I51.9 Heart disease, unspecified; I10 Essential (primary) hypertension; F42.9 Obsessive-compulsive disorder, unspecified; G47.30 Sleep apnea, unspecified; Z82.49 Family history of ischemic heart disease and other diseases of the circulatory system; Z79.82 Long term (current) use of aspirin

== ENCOUNTER → 2017-08-13 | Outpatient (CLI) | payer OTHER ==
[~2017-08-13] MED LIST changes: +AMLO2.5T PO; +ASCA500 PO; +CARV12.5 PO; -CARV25TA2 PO; +FERR1TAB13 PO; -KETO10TA PO; -LISI-461 PO; +LISI-729 PO; +MECL-91 PO; -METF1000 PO; +METF500T PO; +ONDA4TAB46 PO; +PANT40TA PO; -TIZA1CAP2 PO; +TRAZ100T29 PO; -TRAZ50TA35 PO; +VENL225T27 PO; -ZTHM250 PO
--- NOTE | 2017-08-13 13:40 | DIAGNOSTIC IMAGING REPORT ---
PET/CT SKULL-THIGH CLINICAL HISTORY: 57 years-old Female presenting with LYMPHOMA. TECHNIQUE: PET/CT was performed from the vertex through the proximal thighs following the intravenous administration of 12.67 mCi of F18-FDG. Blood glucose level 139 mg/dL. The injection was performed at 11:09 AM and imaging began at 12:[address] was performed for attenuation correction purposes and anatomic localization. COMPARISON: None. CT DOSE (mGy.cm): The estimated cumulative dose is 1751.21. FINDINGS: Head and neck: No FDG-avid disease or significant lymphadenopathy in the head and the neck. Asymmetric mild FDG avidity in the left fossa of [place]mull[place] likely from secretions. Chest: FDG avid lymphadenopathy in the bilateral axillae (right max SUV 9.2; left max SUV 18.8), right supraclavicular fossa (max SUV 3.7), mediastinum (right paratracheal max SUV 9.6; prevascular max SUV 11.7), and bilateral chandrakant (right max SUV 10.9; left max SUV 18.1). The majority of these nodes measure at least 10 mm in the short axis. Multichamber enlargement of the heart. Coronary artery calcification. No pericardial or pleural effusion. Mosaic attenuation in the lungs could suggest small airways disease dependent changes consistent with atelectasis. No FDG avid disease in the lung parenchyma. Abdomen and pelvis: Below the diaphragm, tracer is distributed physiologically in the gastrointestinal and genitourinary tracts. Prominent subcentimeter lymph node in the portacaval region does not demonstrate FDG avidity. FDG avid 10 mm left internal iliac lymph node (max SUV 17.1). FDG avid lymph node noted in the left inguinal region, which is not enlarged on anatomic imaging (max SUV 8.1). No other lymphadenopathy or FDG-avid disease. Cholecystectomy clips noted. Musculoskeletal: No FDG-avid or destructive bone lesion. Postsurgical changes of the lumbar spine. IMPRESSION: 1. Initial PET/CT demonstrates FDG avid comfort stations above and below the diaphragm as above, consistent with known lymphoma. Electronically signed by: Fabrice Foss M.D. 08/13/2017 1:39 PM Dictated Date/Time: 08/13/2017 1:26 PM
== END | disposition home or self-care (01) ==
LOC: C.PET 10:10
PROVIDERS: ATTEND Internal Medicine Hematology
DX: C83.31 Diffuse large B-cell lymphoma, lymph nodes of head, face, and neck (principal)

== ENCOUNTER 2017-09-01 08:58 | Day surgery (SDC) | payer OTHER ==
[~2017-09-01] VITALS: Ht 165.1 cm; Wt 90.0 kg
[~2017-09-01 08:58] MED LIST changes: +CEFAZOLIN 2000MG IV PUSH 10 ML IV SCH; +GABA-1218 PO; -GABA300C19 PO; +LACTATED RINGER'S 1000ML 1,000 ML IV SCH; +NORMOSOL R 1,000 ML IV SCH
[2017-09-01 09:43] VITALS: BP 121/78; PULSE 66; TEMP 37; O2SAT 98; Ht 165.1 cm; Wt 90.0 kg
[2017-09-01] MEDS ORDERED: MIDAZOLAM HCL 1 MG/ML 2ML VIAL ONE (10:49)
[2017-09-01] MEDS ORDERED: LIDOCAINE HCL 2% 2 ML VIAL (20MG/ML) ONE (10:49)
[2017-09-01] MEDS ORDERED: PROPOFOL IV EMULSION 10 MG/ML 20 ML VIAL IV ONE (10:49)
[2017-09-01] MEDS ORDERED: FENTANYL CITRATE INJ 50 MCG/1 ML 2 ML VIAL ONE (10:49)
--- NOTE | 2017-09-01 11:38 | History & Physical Bridge Note ---
H&P Re-Evaluation Bridge Note: I have examined the patient, reviewed the History & Physical and in the interval since the performance of the History & Physical I have noted the following changes of clinical significance: No changes noted
[2017-09-01] MEDS ORDERED: NovoLIN-R INSULIN PER UNIT CHARGE ONE (11:44)
[2017-09-01] MEDS ORDERED: ONDANSETRON INJ 2 MG/ML 2 ML VIAL IV PRN (11:45)
[2017-09-01] MEDS ORDERED: INSULIN HUMAN REGULAR SC ONE (11:45)
[2017-09-01] MEDS ORDERED: ATROPINE SULFATE 0.1 MG/ML 5ML SYR IV PRN (11:45)
[2017-09-01] MEDS ORDERED: LIDOCAINE HCL 1% 20 ML VIAL ONE (11:48)
--- NOTE | 2017-09-01 13:17 | [facility] Operative Report ---
Operative Report Operative Date Sep 01, 2017. Pre-Operative Diagnosis B-Cell Lymphoma, need for central venous access port Post-Operative Diagnosis B-Cell Lymphoma Procedure(s) Performed Infusaport Insertion Surgeon Laura Wakefield MD Market Risk Manager Surgeon(s) None Estimated Blood Loss 3cc Findings Left subclavian vein accessed with single stick, good venous blood return, wire passed easily into superior vena cava Fluids 500cc Specimens None per surgeon Drains None Anesthesia Monitored local anesthetic, 15cc of 1% Lidocaine local anesthetic Complication(s) None Disposition Recovery Room / PACU Indications Marylin Andres is a 57 year old woman with B-cell lymphoma who needs a central venous access port for chemotherapy. Indications, risks, benefits and potential complications of procedure discussed at length with patient. All questions answered to apparent satisfaction. Patient elected to proceed with the operation and freely signed the consent form. Description of Procedure Patient was brought to the operating room and identified as Marylin Andres, 62. She was placed on the operating table with a shoulder roll under her upper spine to open the left chest area. Anesthesia was induced without difficulty. The left upper chest was prepped and draped in the usual sterile fashion. A time-out was held, verifying correct patient, procedure, site, equipment available, pre op antibiotics, allergies, and personnel. An needle was used to access the left subclavian vein with a single stick; good venous blood return was appreciated. A wire was placed through the needle without resistance, and the needle was removed. Fluoroscopy was used to verify the wire was in proper position leading into the superior vena cava. A rhona was made in the skin at the puncture site. Next, the skin was anesthetized approximately 2cm inferior to the puncture site, and a 3cm incision was made. A pocket was created for the Infusaport, and the port was placed in the pocket. Next, the introducer / dilator was placed over the wire, and the wire was removed. The catheter was placed through the introducer, and verified to be in the superior vena cava by fluoroscopy. The introducer / dilator was removed. A tunnel was created from the puncture site to the port pocket, and the catheter was placed through this tunnel. The catheter tip was adjusted to be in place at the junction of the superior vena cava and right atrium, and was cut to size and attached to the Infusaport. A Mejia needle was used to test the port - which was found to draw back easily, and flushed easily with 4cc of heparinized saline. The port was then secured in the pocket with 0 Prolene in two places. The sponge and instrument counts were verified to be correct x 2 by the nurse in charge. Deep tissue was closed over the port using 2-0 vicryl in interrupted fashion. Dermis was approximated with 3-0 vicryl in interrupted fashion. 4-0 Monocryl was then used to close the skin in running fashion. Steri strips and a sterile dressing were then applied. Patient was then awakened from anesthesia without difficulty, and was taken to PACU in good condition, having suffered no untoward events. I attest to the content of the Intraoperative Record and any orders documented therein. Any exceptions are noted below.
[2017-09-01] MEDS ORDERED: OXYC-57 PO (13:18)
--- NOTE | 2017-09-01 13:23 | Discharge Instructions ---
Discharge Instructions Date of Service Sep 01, 2017. 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 -You may remove the outer dressing in 48 hours; please leave the steri strips ( small white band-aids) in place - these will fall off on their own over time. -You may shower prior to removing the outer dressing, just try to avoid direct water stream onto the dressing. Once dressing is removed, you may shower with the steri-strips in place - just allow warm, soapy water to wash gently over the incision. Do not scrub. Do not soak, as in a bathtub or swimming pool. -You were given a prescription for Percocet; you may take this for any pain that is not controlled with Tylenol or Ibuprofen. Do not drive if taking the Percocet. -You may resume your plavix tomorrow, 09/02/17 -You do not need to schedule a follow up appointment with Dr. Wakefield. However, you may call the clinic at any time with questions or concerns: . Current Hospital Diet Patient's current hospital diet: Discharge Diet Recommended Diet: Regular Diet Procedures Procedures Performed: Infusaport Insertion Pending Studies Studies pending at discharge: no Medical Emergencies . Who to Call and When: Medical Emergencies: If at any time you feel your situation is an emergency, please call 911 immediately. . Non-Emergent Contact Non-Emergency issues call your: Primary Care Provider, Surgeon Call Non-Emergent contact if: temperature is above 101, your pain is not controlled, your pain is worsening, wound has increased drainage, wound has increased redness, wound has increased pain . "Provider Documentation" section prepared by Laura Wakefield. . VTE Core Measure Inpt VTE Proph given/why not?: SCD's [place] Drug Monitoring Program Search Results: patient reviewed within database, no issues identified
[2017-09-01] MEDS: FENTANYL CITRATE INJ 50 MCG/1 ML 2 ML VIAL IV PRN ×2 (13:30→13:37)
--- NOTE | 2017-09-01 13:31 | DIAGNOSTIC IMAGING REPORT ---
CHEST ONE VIEW PORTABLE HISTORY: 57 years-old Female Evaluate for pneumothorax status post left subclavian Hojysq-r-Vjwh placement. B-cell lymphoma COMPARISON: Chest radiograph 12/29/2016 TECHNIQUE: Portable upright AP view of the chest FINDINGS: Cardiac silhouette is moderately enlarged. Status post placement of a left subclavian Maxqfr-e-Nqgo catheter with distal tip terminating to the right of midline in the region of the mid SVC. No postprocedural pneumothorax identified. Pulmonary vascular congestion without overt pulmonary edema. No pleural effusion or focal airspace consolidation. Bones are grossly intact. Fusion hardware of the thoracolumbar spine is partially imaged. IMPRESSION: Status post placement of a left subclavian Bbnqxk-h-Cets catheter with distal tip terminating in the region of the mid SVC. No postprocedural pneumothorax. The above report was generated using voice recognition software. It may contain grammatical, syntax or spelling errors. Electronically signed by: Demetrio Gaines M.D. 09/01/2017 1:29 PM Dictated Date/Time: 09/01/2017 1:28 PM
[2017-09-01 14:40] VITALS: BP 119/70; PULSE 95; TEMP 36.8; O2SAT 97
[2017-09-01 15:10] VITALS: BP 118/70; PULSE 97; TEMP 36.8; O2SAT 95
--- NOTE | 2017-09-01 15:32 | Anesthesiology Progress Note ---
Anesthesia Post Op Note Date & Time Sep 01, 2017 at 15:32 Vital Signs Pain Intensity: 0 Vital Signs Past 12 Hours Date Time Temp Pulse Resp B/P (MAP) Pulse Ox O2 Delivery O2 Flow Rate FiO2 09/01/17 15:10 36.8 97 18 118/70 95 Room Air 09/01/17 14:40 36.8 95 18 119/70 97 Room Air 09/01/17 14:25 96 16 116/72 93 09/01/17 14:15 99 16 119/85 98 Nasal Cannula 2 09/01/17 14:05 92 16 132/90 98 Nasal Cannula 2 09/01/17 13:55 95 16 133/86 99 Nasal Cannula 2 09/01/17 13:50 36.2 98 16 135/92 99 Nasal Cannula 2 09/01/17 13:40 101 16 100/73 94 Room Air 09/01/17 13:30 95 16 117/79 94 Room Air 09/01/17 13:20 97 16 125/83 99 Oxymask 10 09/01/17 13:10 97 16 114/78 100 Oxymask 10 09/01/17 13:03 36 97 16 113/63 98 Oxymask 10 09/01/17 09:43 37 66 18 121/78 (92) 98 Room Air Notes Mental Status: alert / awake / arousable, participated in evaluation Pt Amnestic to Procedure: Yes Nausea / Vomiting: adequately controlled Pain: adequately controlled Airway Patency, RR, SpO2: stable & adequate BP & HR: stable & adequate Hydration State: stable & adequate Anesthetic Complications: no major complications apparent
== END 2017-09-01 15:22 | disposition home or self-care (01) ==
LOC: C.ACU 08:58
PROVIDERS: ATTEND Student in an Organized Health Care Education/Training Program
DX: C83.31 Diffuse large B-cell lymphoma, lymph nodes of head, face, and neck (principal); E11.9 Type 2 diabetes mellitus without complications; I10 Essential (primary) hypertension; Z79.899 Other long term (current) drug therapy

== ENCOUNTER 2017-09-09 20:52 | Inpatient (IN) | payer OTHER ==
[~2017-09-09] VITALS: Ht 165.1 cm; Wt 112.0 kg
[~2017-09-09 20:52] MED LIST changes: -CEFAZOLIN 2000MG IV PUSH 10 ML IV SCH; -CEPH500C PO; -FLUC150T PO; -LACTATED RINGER'S 1000ML 1,000 ML IV SCH; -NORMOSOL R 1,000 ML IV SCH; +OXYC-57 PO; -PANT40TA PO
[2017-09-09] MEDS ORDERED: ACETAMINOPHEN 500 MG TAB PO STA (21:05)
[2017-09-09] MEDS ORDERED: HYDROCODONE/HOMATROPINE SYRUP 5MG/1.5MG 5ML UDP PO STA (21:05)
[2017-09-09] MEDS ORDERED: ALBUT/IPRATROP 3MG/0.5MG NEB 3 ML VIAL INH ONE (21:15)
--- NOTE | 2017-09-09 21:21 | EMERGENCY ROOM VISIT NOTE ---
History Report prepared by Leandro: Amy German Under the Supervision of: Dr. Hi Purvis M.D. First contact with patient: 21:00 Chief Complaint: RESPIRATORY PROBLEMS Stated Complaint: CANT BREATHE,JOINTS HURT History of Present Illness The patient is a 57 year old female who presents to the Emergency Room with complaints of worsening respiratory problems starting today. The patient states that she has stage 3 large cell lymphoma. She reports that she tried to lie down to sleep and couldn't. She states that every time she coughs, she feels like she is suffocating. The patient notes that she has tried using her O2 that she has for sleeping and her inhaler with no relief. The patient complains of achy joints, fever, and producing phlegm with her cough. The patient denies receiving chemotherapy or radiation and use of Tylenol or Ibuprofen. She notes that she just got her port placed. She states that she came to the ED because she called her doctor who told her to come in. Source of History: patient Onset: today Position: other (global) Quality: other (global) Timing: worsening Associated Symptoms: + fevers, + cough, + SOB Note: The patient complains of achy joints and the production of phlegm with her cough. The patient denies receiving chemotherapy or radiation and use of Tylenol or Ibuprofen. Review of Systems See HPI for pertinent positives & negatives. A total of 10 systems reviewed and were otherwise negative. Past Medical & Surgical Medical Problems: (1) CAD (coronary artery disease) (2) Chronic systolic heart failure (3) CKD (chronic kidney disease), stage III (4) DM type 2 (diabetes mellitus, type 2) (5) Dyslipidemia (6) Dyspnea (7) Heart disease (8) History of migraine (9) Hypertension (10) Ischemic cardiomyopathy (11) Myocardial infarction (12) OCD (obsessive compulsive disorder) (13) DANGELO (obstructive sleep apnea) Surgical Problems: (1) S/P cardiac cath Family History Heart disease Social History Smoking Status: Never Smoker Alcohol Use: none Drug Use: none Marital Status: Housing Status: lives with family Occupation Status: employed Current/Historical Medications Scheduled Amlodipine (Norvasc), 2.5 MG PO DAILY Ascorbic Acid (Vitamin C), 500 MG PO TID Aspirin (Aspirin 81), 81 MG PO DAILY Atorvastatin Calcium (Lipitor), 80 MG PO DAILY Buspirone Hcl (Buspirone Hcl), 2 TAB PO BID Carvedilol (Coreg), 1 TAB PO BID Clopidogrel Bisulfate (Clopidogrel), 75 MG PO QAM Fenofibrate Micronized (Tricor), 67 MG PO DAILY Furosemide (Lasix), 40 MG PO DAILY Gabapentin (Neurontin), 300 MG PO TID Glipizide (Glucotrol), 2 TAB PO BID Insulin Detemir (Levemir Flextouch), 10 HS Lisinopril (Prinivil), 5 MG PO DAILY Metformin Hcl (Glucophage), 1,000 MG PO BID Trazodone Hcl (Desyrel), 50 MG PO HS Venlafaxine Hcl (Effexor Xr), 1 CAP PO DAILY Venlafaxine Hcl (Effexor Xr), 1 CAP PO DAILY Scheduled PRN Albuterol Hfa (Ventolin Hfa), 1-2 PUFFS INH Q4 PRN for SOB/Wheezing Hydrocodone/Acetaminophen 5MG/325MG ([place] 5MG/325MG), 2 TABLET PO Q6 PRN for Pain Hydroxyzine Pamoate (Vistaril), 1 CAP PO Q6H PRN for Anxiety/Agitation Ketorolac (Toradol), 10 MG PO UD PRN for Pain Lorazepam (Lorazepam), 0.5 MG PO Q6H PRN for Anxiety/Agitation Nitroglycerin (Nitrostat), 0.4 MG UT UD PRN for Chest Pain Allergies Coded Allergies: Adhesives (Verified Allergy, Unknown, RASH, 09/09/17) Physical Exam Vital Signs Date Time Temp Pulse Resp B/P (MAP) Pulse Ox O2 Delivery O2 Flow Rate FiO2 09/09/17 22:30 92 Nasal Cannula 2.0 09/09/17 22:22 129 26 126/75 88 Room Air 09/09/17 22:01 131 20 96 Room Air 09/09/17 21:53 Room Air 09/09/17 21:49 126 09/09/17 21:22 99 Room Air 09/09/17 20:56 37.5 136 20 169/96 94 Room Air Physical Exam GENERAL: Patient is a healthy-appearing well-nourished, coughing on exam HEAD: Normocephalic atraumatic EYES: Ocular movements intact pupils equal and react to light OROPHARYNX mucous membranes are moist no exudates present no erythema or edema present NECK: Supple no nuchal rigidity CHEST: Good equal expansion, port in place in left chest wall LUNGS: Clear and equal to auscultation CARDIAC: Normal S1 and S2 ABDOMEN: Soft nontender no guarding BACK: No CVA tenderness EXTREMITIES: No pain upon palpation normal muscle strength in all groups no clubbing cyanosis or edema NEURO: Patient is following commands and answering questions appropriately. Alert and oriented x3 Cranial Nerves 2-12 grossly intact Medical Decision & Procedures ER Provider Diagnostic Interpretation: Radiology results as stated below per my review and radiologist interpretation: CHEST ONE VIEW PORTABLE HISTORY: Short of breath. COMPARISON: Chest 09/01/2017. FINDINGS: No pneumothorax. Trace right pleural effusion. The heart remains mildly enlarged. Diffuse interstitial and vascular thickening suggestive of mild congestive change. Left basilar linear densities favor subsegmental atelectasis. Left subclavian Port-A-Cath terminates at the SVC. Thoracolumbar spinal fusion hardware is noted. IMPRESSION: Cardiomegaly, mild congestive change, and a trace right pleural effusion. Electronically signed by: Remy Jimenez M.D. 09/09/2017 10:14 PM Dictated Date/Time: 09/09/2017 10:13 PM CHEST CTA for PULMONARY ARTERIES CT DOSE: 719.80 mGy.cm HISTORY: Short of breath. TECHNIQUE: Multiaxial CT images of the chest were performed following the intravenous administration of contrast to evaluate the pulmonary arteries. Maximal intensity projection images were also obtained. A dose lowering technique was utilized adhering to the principles of ALARA. COMPARISON STUDY: Chest 09/09/2017. FINDINGS: The heart is mildly enlarged. Retrograde opacification into the hepatic veins. Small bilateral pleural effusions. Normal caliber thoracic aorta with no evidence for dissection. No hepatic or splenic masses. Posterior fusion within the lower thoracic spine. There is axillary, mediastinal, bilateral hilar lymphadenopathy. This is consistent with the patient's history of lymphoma. All of these lymph nodes have increased in size from the recent PET/CT. For comparative purposes the dominant right axillary lymph node measures 3.1 x 2.1 cm. This previously measured 2.4 x 1.2 cm. Left subclavian Port-A-Cath terminates in the SVC. No pneumothorax. The central airways are slightly narrowed due to the hilar lymphadenopathy. Diffuse interlobular septal thickening and mild perihilar groundglass airspace opacities. This likely represents pulmonary edema. No pneumothorax. No filling defects within the pulmonary arteries to suggest pulmonary embolus. IMPRESSION: 1. No evidence for pulmonary embolus. 2. Diffuse interlobular septal thickening with perihilar groundglass airspace opacities, cardiomegaly, and small bilateral pleural effusions. This likely represents pulmonary edema. 3. Progressive lymphadenopathy within the chest consistent with the patient's history of lymphoma. Electronically signed by: Remy Jimenez M.D. 09/09/2017 10:45 PM Dictated Date/Time: 09/09/2017 10:37 PM Laboratory Results Test 09/09/17 21:30 09/09/17 21:35 09/09/17 21:37 09/09/17 21:45 Immature Granulocyte % (Auto) 0.3 % White Blood Count 13.88 K/uL (4.8-10.8) Red Blood Count 3.68 M/uL (4.2-5.4) Hemoglobin 11.0 g/dL (12.0-16.0) Hematocrit 32.7 % (37-47) Mean Corpuscular Volume 88.9 fL (80-100) Mean Corpuscular Hemoglobin 29.9 pg (25-34) Mean Corpuscular Hemoglobin Concent 33.6 g/dl (32-36) Platelet Count 324 K/uL (130-400) Mean Platelet Volume 9.8 fL (7.4-10.4) Neutrophils (%) (Auto) 78.8 % Lymphocytes (%) (Auto) 14.1 % Monocytes (%) (Auto) 6.1 % Eosinophils (%) (Auto) 0.6 % Basophils (%) (Auto) 0.1 % Neutrophils # (Auto) 10.93 K/uL (1.4-6.5) Lymphocytes # (Auto) 1.96 K/uL (1.2-3.4) Monocytes # (Auto) 0.85 K/uL (0.11-0.59) Eosinophils # (Auto) 0.08 K/uL (0-0.5) Basophils # (Auto) 0.02 K/uL (0-0.2) Immature Granulocyte # (Auto) 0.04 K/uL (0.00-0.02) Total Bilirubin 0.3 mg/dl (0.2-1) Aspartate Amino Transf (AST/SGOT) 15 U/L (15-37) Alanine Aminotransferase (ALT/SGPT) 18 U/L (12-78) Alkaline Phosphatase 104 U/L (45-117) Total Creatine Kinase 102 U/L (26-192) Creatine Kinase MB 1.5 ng/ml (0.5-3.6) Creatine Kinase MB Ratio 1.5 (0-3.0) Pro-B-Type Natriuretic Peptide 2648 pg/ml (0-900) Total Protein 7.1 gm/dl (6.4-8.2) Albumin 2.9 gm/dl (3.4-5.0) Globulin 4.2 gm/dl (2.5-4.0) Albumin/Globulin Ratio 0.7 (0.9-2) Bedside D-Dimer > 450 ng/mlFEU (0-450) Bedside Hemoglobin 11.2 g/dl (12.0-16.0) Bedside Hematocrit 33 % (37-47) Bedside Sodium 137 mEq/L (135-144) Bedside Potassium 4.5 mEq/L (3.3-5.0) Bedside Chloride 102 mEq/L (101-112) Bedside Total CO2 25 mEq/l (24-31) Bedside Blood Urea Nitrogen 25 mg/dl (7-18) Bedside Creatinine 1.0 mg/dl (0.6-1.3) Bedside Glucose (other) 349 mg/dl (70-99) Bedside Ionized Calcium (Patty) 1.15 mmol/l (1.12-1.32) Influenza Type A (RT-PCR) Neg for Influ A (NEG) Influenza Type A Antigen Neg for Influ A (NEG) Influenza Type B Antigen Neg for Influ B (NEG) Influenza Type B (RT-PCR) Neg for Influ B (NEG) Labs reviewed by ED physician. Medications Administered Medications (Trade) Dose Ordered Sig/Chantale Route Start Time Stop Time Status Last Admin Dose Admin Acetaminophen (Tylenol Tab) 1,000 mg NOW STAT PO 09/09/17 21:05 09/09/17 21:09 DC 09/09/17 21:31 1,000 MG Hydrocodone Bit/ Homatropine Methylb (Hycodan Syrup) 5 ml NOW STAT PO 09/09/17 21:05 09/09/17 21:09 DC 09/09/17 21:31 5 ML Levalbuterol (Xopenex 1.25MG/ 3ML Neb) 1.25 mg NOW STAT INH 09/09/17 21:38 09/09/17 21:40 DC 09/09/17 22:00 1.25 MG Levofloxacin (Levaquin / D5W) 500 mg NOW STAT IV 09/09/17 21:40 09/09/17 21:42 DC 09/09/17 22:21 500 MG Vancomycin HCl (Vancomycin 1gm/ 270ml Nss) 1 gm NOW STAT IV 09/09/17 21:40 09/09/17 21:42 DC 09/09/17 22:21 1 GM Insulin Human Regular (novoLIN-R) 10 units NOW STAT SC 09/09/17 21:49 09/09/17 21:50 DC 09/09/17 22:23 10 UNITS Cefepime HCl 1000 mg/Syringe 11 ml @ 5.5 mls/min TODAY@2140 IV 09/09/17 21:40 09/09/17 22:00 DC 09/09/17 22:21 5.5 MLS/MIN Hydromorphone HCl (Dilaudid Inj) 1 mg NOW STAT IV 09/09/17 22:42 09/09/17 22:44 DC 09/09/17 22:59 1 MG Furosemide (Lasix Inj) 40 mg NOW STAT IV 09/09/17 22:59 09/09/17 23:00 DC 09/10/17 00:06 40 MG Ondansetron HCl (Zofran Inj) 4 mg Q6H PRN IV 09/10/17 00:00 10/10/17 00:00 09/10/17 16:37 4 MG ECG Indication: SOB/dyspnea Rate (beats per minute): 133 Rhythm: sinus tachycardia Findings: no acute ischemic change, no ectopy ED Course 2101: Past medical records reviewed. The patient was evaluated in room C3. A complete history and physical examination was performed. 2104: Ordered Hycodan Syrup 5 ml PO, Tylenol Tab 1000 mg PO. 2114: Ordered Duoneb 12 ml INH. 2137: Ordered Levalbuterol 1.25 mg INH. 2139: Ordered Vancomycin HCl 1 gm IV, Levofloxacin 500 mg IV, Cefepime HCl 1000 mg/ Dextrose 111 ml @ 200 mls/hr IV. 2149: Ordered Insulin Human Regular 10 units SC. 2241: Ordered Dilaudid Inj 1 mg IV. 2249: I discussed the patient's case with Dr. Cobb, he has agreed to evaluate the patient for further management and care. Medical Decision Etiologies such as infections, reactive airway disease, pneumonia, pneumothorax , COPD, CHF, cardiac ischemia, pulmonary embolism, musculoskeletal, gastrointestinal, as well as others were entertained. This is a 57-year-old female that presents emergency department complaining of shortness of breath. The patient was sent for CAT scan of the chest due to the patient's hypoxia. She also has a rapid heart rate therefore was given Xopenex. She does have an elevation in her white blood count cell count therefore was started on antibiotics. She also has an elevation in her troponin. I did discuss the case with the hospitalist service who agreed to see the patient. Patient was in agreement with the treatment plan. Medication Reconcilliation Current Medication List: was personally reviewed by me Blood Pressure Screening Patient's blood pressure: Normal blood pressure Blood pressure disposition: Did not require urgent referral Consults Time Called: [phone] Consulting Physician: Dr. Cobb Returned Call: [phone] I discussed the patient's case with Dr. Cobb, he has agreed to evaluate the patient for further management and care. Impression Primary Impression: Hypoxia Additional Impression: Pulmonary edema Scribe Attestation The scribe's documentation has been prepared under my direction and personally reviewed by me in its entirety. I confirm that the note above accurately reflects all work, treatment, procedures, and medical decision making performed by me. Departure Information Dispostion Being Evaluated By Hospitalist Referrals Orion Murray D.O. (PCP) Patient Instructions My [facility] Problem Qualifiers Additional Impression: Pulmonary edema Chronicity: acute Qualified Codes: J81.0 - Acute pulmonary edema
[2017-09-09] MEDS ORDERED: LEVALBUTEROL 1.25MG/3ML NEB INH STA (21:38)
[2017-09-09] MEDS ORDERED: VANCOMYCIN 1GM/270ML NSS IV STA (21:40)
[2017-09-09] MEDS ORDERED: CEFEPIME IV 1,000 MG in SYRINGE 0 ML IV SCH (21:40)
[2017-09-09] MEDS ORDERED: LEVAQUIN 500MG / 100ML D5W IV STA (21:40)
[2017-09-09] MEDS ORDERED: CEFEPIME IV 1,000 MG in DEXTROSE 5% 100ML 100 ML IV STA (21:40)
[2017-09-09] MEDS ORDERED: LEVALBUTEROL 1.25MG/0.5ML NEB INH ONE (21:43)
[2017-09-09 21:45] LABS: BASO % 0.1 %; BASO ABS # 0.02 K/uL (0-0.2); COMPLETE YES; EOS % 0.6 %; HEMATOCRIT 32.7 % (37-47); IG% 0.3 %; LYMPH % 14.1 %; LYMPH ABS # 1.96 K/uL (1.2-3.4); MEAN CELL VOLUME 88.9 fL (80-100); MEAN CORPUSCULAR HEMOGLOBIN 29.9 pg (25-34); MEAN CORPUSCULAR HGB CONC 33.6 g/dl (32-36); MEAN PLATELET VOLUME 9.8 fL (7.4-10.4); MONO % 6.1 %; NEUT % 78.8 %; PLATELET COUNT 324 K/uL (130-400); RED BLOOD COUNT 3.68 M/uL (4.2-5.4); WHITE BLOOD COUNT 13.88 K/uL (4.8-10.8)
[2017-09-09] MEDS ORDERED: INSULIN HUMAN REGULAR SC STA (21:49)
[2017-09-09 21:56] LABS: ISTAT HEMOGLOBIN 11.2 g/dl (12.0-16.0); ISTAT IONIZED CALCIUM 1.15 mmol/l (1.12-1.32)
[2017-09-09] MEDS ORDERED: OPTIRAY 320 IV PRN (22:00)
[2017-09-09 22:01] VITALS: PULSE 131; O2SAT 96
[2017-09-09 22:04] LABS: BUN/CREATININE RATIO 21.8 (10-20); CALCIUM 8.9 mg/dl (8.5-10.1); CREATININE 1.13 mg/dl (0.60-1.20); POTASSIUM 4.5 mmol/L (3.5-5.1)
[2017-09-09 22:06] LABS: ALB/GLOB RATIO 0.7 (0.9-2)
--- NOTE | 2017-09-09 22:15 | DIAGNOSTIC IMAGING REPORT ---
CHEST ONE VIEW PORTABLE HISTORY: Short of breath. COMPARISON: Chest 09/01/2017. FINDINGS: No pneumothorax. Trace right pleural effusion. The heart remains mildly enlarged. Diffuse interstitial and vascular thickening suggestive of mild congestive change. Left basilar linear densities favor subsegmental atelectasis. Left subclavian Port-A-Cath terminates at the SVC. Thoracolumbar spinal fusion hardware is noted. IMPRESSION: Cardiomegaly, mild congestive change, and a trace right pleural effusion. Electronically signed by: Remy Jimenez M.D. 09/09/2017 10:14 PM Dictated Date/Time: 09/09/2017 10:13 PM
[2017-09-09] MEDS ORDERED: NovoLIN-R INSULIN PER UNIT CHARGE ONE (22:18)
[2017-09-09 22:25] LABS: BETA-HYDROXYBUTYRATE 1.72 mg/dL (0.2-2.81); CKMB/CK RATIO 1.5 (0-3.0)
[2017-09-09] MEDS ORDERED: HYDROmorphone INJ 1 MG/ML SYR IV STA (22:42)
--- NOTE | 2017-09-09 22:46 | DIAGNOSTIC IMAGING REPORT ---
CHEST CTA for PULMONARY ARTERIES CT DOSE: 719.80 mGy.cm HISTORY: Short of breath. TECHNIQUE: Multiaxial CT images of the chest were performed following the intravenous administration of contrast to evaluate the pulmonary arteries. Maximal intensity projection images were also obtained. A dose lowering technique was utilized adhering to the principles of ALARA. COMPARISON STUDY: Chest 09/09/2017. FINDINGS: The heart is mildly enlarged. Retrograde opacification into the hepatic veins. Small bilateral pleural effusions. Normal caliber thoracic aorta with no evidence for dissection. No hepatic or splenic masses. Posterior fusion within the lower thoracic spine. There is axillary, mediastinal, bilateral hilar lymphadenopathy. This is consistent with the patient's history of lymphoma. All of these lymph nodes have increased in size from the recent PET/CT. For comparative purposes the dominant right axillary lymph node measures 3.1 x 2.1 cm. This previously measured 2.4 x 1.2 cm. Left subclavian Port-A-Cath terminates in the SVC. No pneumothorax. The central airways are slightly narrowed due to the hilar lymphadenopathy. Diffuse interlobular septal thickening and mild perihilar groundglass airspace opacities. This likely represents pulmonary edema. No pneumothorax. No filling defects within the pulmonary arteries to suggest pulmonary embolus. IMPRESSION: 1. No evidence for pulmonary embolus. 2. Diffuse interlobular septal thickening with perihilar groundglass airspace opacities, cardiomegaly, and small bilateral pleural effusions. This likely represents pulmonary edema. 3. Progressive lymphadenopathy within the chest consistent with the patient's history of lymphoma. Electronically signed by: Remy Jimenez M.D. 09/09/2017 10:45 PM Dictated Date/Time: 09/09/2017 10:37 PM
[2017-09-09] MEDS ORDERED: FUROSEMIDE 40 MG/4 ML VIAL IV STA (22:59)
[2017-09-09 23:09] LABS: INFLUENZA A PCR Neg for Influ A (NEG); INFLUENZA B PCR Neg for Influ B (NEG)
[2017-09-10] VITALS (9 sets, daily range): BP systolic 81–138; BP diastolic 55–72; PULSE 84–122; TEMP 36.3–37.4; O2SAT 95–97; BMI 37.8
[2017-09-10] MEDS ORDERED: ONDANSETRON INJ 2 MG/ML 2 ML VIAL IV PRN
[2017-09-10] MEDS ORDERED: LORAZEPAM 0.5 MG TAB PO PRN (00:15)
[2017-09-10] MEDS ORDERED: HYDR25CA PO (00:39)
[2017-09-10] MEDS ORDERED: BUSP-8 PO (00:39)
[2017-09-10] MEDS ORDERED: ATV5X PO (00:39)
[2017-09-10] MEDS ORDERED: KETO10TA PO (00:39)
[2017-09-10] MEDS ORDERED: INSU3INJ3 (00:39)
[2017-09-10] MEDS ORDERED: CARV25TA2 PO (00:39)
[2017-09-10] MEDS ORDERED: TRAZ-119 PO (00:39)
[2017-09-10] MEDS ORDERED: VENL150C PO (00:39)
[2017-09-10] MEDS ORDERED: VENL1CAP92 PO (00:46)
[2017-09-10] MEDS ORDERED: BENZONATATE 100MG CAP PO PRN (01:00)
[2017-09-10] MEDS ORDERED: GLUCAGON FOR INJ 1 MG VIAL SQ PRN (01:45)
[2017-09-10] MEDS ORDERED: GLUCOSE 10 TABS/TUBE PO PRN (01:45)
[2017-09-10] MEDS ORDERED: GLUCOSE 40% GEL 15 GM TUBE PO PRN (01:45)
[2017-09-10] MEDS ORDERED: DEXTROSE 50% 50 ML SYR IV PRN (01:45)
--- NOTE | 2017-09-10 03:39 | History and Physical ---
History & Physical Date & Time of Service: Sep 09, 2017 at 23:05 Chief Complaint: Cant Breathe,Joints Hurt Primary Care Physician: Orion Murray D.O. History of Present Illness Source: patient, clinic records, hospital records 57 year old female with PMH of B Cell lymphoma, DM type 2, Dyslipidemia, Anxiety , CAD, Systolic heart failure presents to the Emergency Room with complaints of worsening SOB. 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 She had a port placed last week to start chemo in the next coming week. Pt said that for the last 2 weeks she has been coughing. She said that she saw her PCP for that and she was told it is due to the cancer that is pushing on one of her nerve. Pt said that today her breathing got worst. she said that she called her PCP that advised her to come to the ER for eval. She said that she developed SOB with minimal exertion. she said that she cannot lie down to sleep. she has been falling asleep on the recliner. Pt said that every time she coughs, she feels like she is suffocating. she said that her physician recently gave her a course of Levaquin. Pt said that she felt like when she had a CHF few months ago. She said that she has been drinking a lot of water because she felt that her mouth is dry. she said that last time she checked her weight she had lost 12 lbs, but now she gained back the 12 lbs. she also complaint of chest discomfort with exertion. Also complaint of achy joints, fever and chills. denies any recent sick contact or recent travelling. Past Medical/Surgical History Medical Problems: (1) CAD (coronary artery disease) Permanent Comment: s/p cath 04/11/2015 - drug eluting stent to the proximal ramus intermedius Status: Chronic (2) Chronic systolic heart failure Status: Chronic (3) CKD (chronic kidney disease), stage III Status: Chronic (4) DM type 2 (diabetes mellitus, type 2) Status: Chronic (5) Dyslipidemia Status: Chronic (6) Heart disease Status: Chronic (7) History of migraine Status: Chronic (8) Hypertension Status: Chronic (9) Ischemic cardiomyopathy Status: Chronic (10) Myocardial infarction Status: Resolved (11) OCD (obsessive compulsive disorder) Status: Chronic (12) DANGELO (obstructive sleep apnea) Status: Chronic Surgical Problems: (1) S/P cardiac cath Permanent Comment: - drug eluting stent to the proximal ramus intermedius Status: Chronic Family History Heart disease Social History Smoking Status: Never Smoker Drug Use: none Marital Status: Occupational Status: employed Allergies Coded Allergies: Adhesives (Verified Allergy, Unknown, RASH, 09/09/17) Home Medications Scheduled Amlodipine (Norvasc), 2.5 MG PO DAILY Ascorbic Acid (Vitamin C), 500 MG PO TID Aspirin (Aspirin 81), 81 MG PO DAILY Atorvastatin Calcium (Lipitor), 80 MG PO DAILY Buspirone Hcl (Buspirone Hcl), 2 TAB PO BID Carvedilol (Coreg), 1 TAB PO BID Clopidogrel Bisulfate (Clopidogrel), 75 MG PO QAM Fenofibrate Micronized (Tricor), 67 MG PO DAILY Furosemide (Lasix), 40 MG PO DAILY Gabapentin (Neurontin), 300 MG PO TID Glipizide (Glucotrol), 2 TAB PO BID Insulin Detemir (Levemir Flextouch), 10 HS Lisinopril (Prinivil), 5 MG PO DAILY Metformin Hcl (Glucophage), 1,000 MG PO BID Trazodone Hcl (Desyrel), 50 MG PO HS Venlafaxine Hcl (Effexor Xr), 1 CAP PO DAILY Venlafaxine Hcl (Effexor Xr), 1 CAP PO DAILY Scheduled PRN Albuterol Hfa (Ventolin Hfa), 1-2 PUFFS INH Q4 PRN for SOB/Wheezing Hydrocodone/Acetaminophen 5MG/325MG (Natoma 5MG/325MG), 2 TABLET PO Q6 PRN for Pain Hydroxyzine Pamoate (Vistaril), 1 CAP PO Q6H PRN for Anxiety/Agitation Ketorolac (Toradol), 10 MG PO UD PRN for Pain Lorazepam (Lorazepam), 0.5 MG PO Q6H PRN for Anxiety/Agitation Nitroglycerin (Nitrostat), 0.4 MG UT UD PRN for Chest Pain Review of Systems Constitutional: + fever, + chills, + fatigue Eyes: No worsening of vision, No discharge ENT: No nasal symptoms, No sore throat Respiratory: + cough, + sputum, + shortness of breath, + dyspnea on exertion Cardiovascular: + orthopnea, No claudication Abdomen: No pain, No nausea Musculoskeletal: + joint pain, No calf pain Genitourinary - Female: No dysuria Neurologic: No paralysis, No numbness/tingling Psychiatric: + anxiety Endocrine: + fatigue Hematologic / Lymphatic: No abnormal bleeding/bruising Integumentary: No rash, No itch Physical Exam Vital Signs Date Time Temp Pulse Resp B/P (MAP) Pulse Ox O2 Delivery O2 Flow Rate FiO2 09/09/17 22:30 92 Nasal Cannula 2.0 09/09/17 22:22 129 26 126/75 88 Room Air 09/09/17 22:01 131 20 96 Room Air 09/09/17 21:53 Room Air 09/09/17 21:49 126 09/09/17 21:22 99 Room Air 09/09/17 20:56 37.5 136 20 169/96 94 Room Air General Appearance: WD/WN, no apparent distress Head: normocephalic Eyes: normal inspection, PERRL, EOMI ENT: hearing grossly normal Neck: supple, no JVD, trachea midline Respiratory/Chest: normal breath sounds, no respiratory distress, no accessory muscle use Cardiovascular: no JVD, + tachycardia Abdomen/GI: normal bowel sounds, non tender, soft Back: no CVA tenderness Extremities/Musculoskelatal: no calf tenderness Neurologic/Psych: alert, normal mood/affect, oriented x 3 Skin: warm/dry, no rash Diagnostics Laboratory Results Results Past 24 Hours Test 09/09/17 21:05 09/09/17 21:30 09/09/17 21:35 09/09/17 21:37 Range/Units White Blood Count 13.88 4.8-10.8 K/uL Red Blood Count 3.68 4.2-5.4 M/uL Hemoglobin 11.0 12.0-16.0 g/dL Hematocrit 32.7 37-47 % Mean Corpuscular Volume 88.9 80-100 fL Mean Corpuscular Hemoglobin 29.9 25-34 pg Mean Corpuscular Hemoglobin Concent 33.6 32-36 g/dl Platelet Count 324 130-400 K/uL Mean Platelet Volume 9.8 7.4-10.4 fL Neutrophils (%) (Auto) 78.8 % Lymphocytes (%) (Auto) 14.1 % Monocytes (%) (Auto) 6.1 % Eosinophils (%) (Auto) 0.6 % Basophils (%) (Auto) 0.1 % Neutrophils # (Auto) 10.93 1.4-6.5 K/uL Lymphocytes # (Auto) 1.96 1.2-3.4 K/uL Monocytes # (Auto) 0.85 0.11-0.59 K/uL Eosinophils # (Auto) 0.08 0-0.5 K/uL Basophils # (Auto) 0.02 0-0.2 K/uL RDW Standard Deviation 43.9 36.4-46.3 fL RDW Coefficient of Variation 13.5 11.5-14.5 % Immature Granulocyte % (Auto) 0.3 % Immature Granulocyte # (Auto) 0.04 0.00-0.02 K/uL Sodium Level 136 136-145 mmol/L Potassium Level 4.5 3.5-5.1 mmol/L Chloride Level 103 98-107 mmol/L Carbon Dioxide Level 26 21-32 mmol/L Anion Gap 6.0 15.0 16-25 mmol/L Blood Urea Nitrogen 25 7-18 mg/dl Creatinine 1.13 0.60-1.20 mg/dl Est Creatinine Clear Calc Drug Dose 66.1 ml/min Estimated GFR () 62.9 Estimated GFR (Non- 54.3 BUN/Creatinine Ratio 21.8 10-20 Random Glucose 336 70-99 mg/dl Calcium Level 8.9 8.5-10.1 mg/dl Total Bilirubin 0.3 0.2-1 mg/dl Aspartate Amino Transf (AST/SGOT) 15 15-37 U/L Alanine Aminotransferase (ALT/SGPT) 18 12-78 U/L Alkaline Phosphatase 104 45-117 U/L Total Creatine Kinase 102 26-192 U/L Creatine Kinase MB 1.5 0.5-3.6 ng/ml Creatine Kinase MB Ratio 1.5 0-3.0 Troponin I 0.132 0-0.045 ng/ml Total Protein 7.1 6.4-8.2 gm/dl Albumin 2.9 3.4-5.0 gm/dl Globulin 4.2 2.5-4.0 gm/dl Albumin/Globulin Ratio 0.7 0.9-2 Beta-Hydroxybutyric Acid 1.72 0.2-2.81 mg/dL Bedside D-Dimer > 450 0-450 ng/mlFEU Bedside Hemoglobin 11.2 12.0-16.0 g/dl Bedside Hematocrit 33 37-47 % Bedside Sodium 137 135-144 mEq/L Bedside Potassium 4.5 3.3-5.0 mEq/L Bedside Chloride 102 101-112 mEq/L Bedside Total CO2 25 24-31 mEq/l Bedside Blood Urea Nitrogen 25 7-18 mg/dl Bedside Creatinine 1.0 0.6-1.3 mg/dl Bedside Glucose (other) 349 70-99 mg/dl Bedside Ionized Calcium (Patty) 1.15 1.12-1.32 mmol/l Test 09/09/17 21:45 09/09/17 22:42 Range/Units Influenza Type A Antigen Neg for Influ A NEG Influenza Type B Antigen Neg for Influ B NEG Microbiology Results 09/09/17 Blood Culture, Received Pending 09/09/17 Blood Culture, Received Pending Diagnostic Radiology CHEST CTA for PULMONARY ARTERIES CT DOSE: 719.80 mGy.cm HISTORY: Short of breath. TECHNIQUE: Multiaxial CT images of the chest were performed following the intravenous administration of contrast to evaluate the pulmonary arteries. Maximal intensity projection images were also obtained. A dose lowering technique was utilized adhering to the principles of ALARA. COMPARISON STUDY: Chest 09/09/2017. FINDINGS: The heart is mildly enlarged. Retrograde opacification into the hepatic veins. Small bilateral pleural effusions. Normal caliber thoracic aorta with no evidence for dissection. No hepatic or splenic masses. Posterior fusion within the lower thoracic spine. There is axillary, mediastinal, bilateral hilar lymphadenopathy. This is consistent with the patient's history of lymphoma. All of these lymph nodes have increased in size from the recent PET/CT. For comparative purposes the dominant right axillary lymph node measures 3.1 x 2.1 cm. This previously measured 2.4 x 1.2 cm. Left subclavian Port-A-Cath terminates in the SVC. No pneumothorax. The central airways are slightly narrowed due to the hilar lymphadenopathy. Diffuse interlobular septal thickening and mild perihilar groundglass airspace opacities. This likely represents pulmonary edema. No pneumothorax. No filling defects within the pulmonary arteries to suggest pulmonary embolus. IMPRESSION: 1. No evidence for pulmonary embolus. 2. Diffuse interlobular septal thickening with perihilar groundglass airspace opacities, cardiomegaly, and small bilateral pleural effusions. This likely represents pulmonary edema. 3. Progressive lymphadenopathy within the chest consistent with the patient's history of lymphoma. Electronically signed by: Remy Jimenez M.D. 09/09/2017 10:45 PM Dictated Date/Time: 09/09/2017 10:37 PM CHEST ONE VIEW PORTABLE HISTORY: Short of breath. COMPARISON: Chest 09/01/2017. FINDINGS: No pneumothorax. Trace right pleural effusion. The heart remains mildly enlarged. Diffuse interstitial and vascular thickening suggestive of mild congestive change. Left basilar linear densities favor subsegmental atelectasis. Left subclavian Port-A-Cath terminates at the SVC. Thoracolumbar spinal fusion hardware is noted. IMPRESSION: Cardiomegaly, mild congestive change, and a trace right pleural effusion. Electronically signed by: Remy Jimenez M.D. 09/09/2017 10:14 PM Dictated Date/Time: 09/09/2017 10:13 PM Impression Assessment and Plan Worsening Dyspnea Possible related to Pulmonary edema Acute systolic CHF exacerbation CTA chest showed no evidence for pulmonary embolus. Diffuse interlobular septal thickening with perihilar groundglass airspace opacities, cardiomegaly, and small bilateral pleural effusions. CXR showed Cardiomegaly, mild congestive change, and a trace right pleural effusion. Received Lasix 40mg IV Levaquin, Vanco, Cefepime given in the ER Will hold on abx for now, will reassess her in am Continue lasix Duoneb treatment blood culture pending Repeat CXR in am RECENT ECHO SHOWED Interpretation Summary The primary indication after review was deemed appropriate and the examination was performed. Mildly dilated LV chamber size with mild global hypokinesis. Moderately reduced LV systolic function. Calculated LV ejection Fraction = 37% (biplane method of discs). Severe hypokinesis of the inferior and posterior jordan at the base and midlevel , otherwise, mild global hypokinesis. Grade I diastolic dysfunction. Trace mitral regurgitation. Mild left atrial enlargement. Elevated troponin complaint of chest discomfort on exertion possible related to acute CHF exacerbation EKG showed Sinus tachy Follow up troponin repeat EKG in am Continue plavix, asa 81mg, coreg and lipitor continue monitor in telemetry Elevated WBC Received Levaquin, Cefepime and Vanco Will check procalcitonin will reassess in am before starting on antibiotic. Continue monitor CBC Elevated Anion GAP Elevated Blood sugar Received insulin check BMP DM type 2 Last HBA1C was 8.6 on 06/19 Continue Levemir 10 units Hold oral DM meds on insulin coverage Monitor BS closely check hba1c HTN Stable Continue amlodipine, coreg, lisinopril B Cell Lymphoma Plan to start chemo treatment Continue follow with oncology CAD Continue coreg/ asa, plavix and statin Cough B. Pertussis Pending Influenza neg Continue Tessalon prn DVT px on Lovenox CODE STATUS Ful code Level of Care Telemetry Resuscitation Status FULL RESUSCITATION VTE Prophylaxis Given or contraindicated: Enoxaparin (Lovenox)SQ
[2017-09-10] MEDS: HYDROCODONE/ACETAMOPHEN 5/325MG TAB PO PRN ×3 (03:55→16:37)
[2017-09-10 04:15] LABS: HEMATOCRIT 30.7 % (37-47); MEAN CORPUSCULAR HEMOGLOBIN 28.7 pg (25-34); MEAN CORPUSCULAR HGB CONC 31.9 g/dl (32-36); MEAN PLATELET VOLUME 9.6 fL (7.4-10.4); PLATELET COUNT 301 K/uL (130-400); RED BLOOD COUNT 3.41 M/uL (4.2-5.4); WHITE BLOOD COUNT 12.49 K/uL (4.8-10.8)
[2017-09-10] MEDS: INSULIN DETEMIR FLEXPEN/FLEX TOUCH 100 UNITS/ML 3ML SQ SCH ×2 (04:23→20:37)
[2017-09-10] MEDS: INSULIN ASPART 100 UNITS/ML 3 ML PEN SC SCH ×5 (04:24→20:36)
[2017-09-10 04:45] LABS: BUN/CREATININE RATIO 20.8 (10-20); CALCIUM 8.1 mg/dl (8.5-10.1); CREATININE 1.17 mg/dl (0.60-1.20); POTASSIUM 4.5 mmol/L (3.5-5.1)
[2017-09-10] MEDS ORDERED: LEVALBUTEROL/IPRATROPIUM NEB INH PRN (04:45)
[2017-09-10 05:14] LABS: BETA-HYDROXYBUTYRATE 0.99 mg/dL (0.2-2.81)
[2017-09-10] MEDS ORDERED: PHARMACY GLYCEMIC MGMT CONSULT PRN (06:34)
--- NOTE | 2017-09-10 07:06 | DIAGNOSTIC IMAGING REPORT ---
CHEST ONE VIEW PORTABLE CLINICAL HISTORY: 57 years-old Female presenting with f/u, cardiomegaly with mild congestive change. TECHNIQUE: Portable upright AP view of the chest was obtained. COMPARISON: 09/09/2017 at 9:16 PM. FINDINGS: Left subclavian Mediport terminates in the mid SVC. Persistent prominence of the cardiac mediastinal silhouette and pulmonary vasculature. Pulmonary vascular indistinctness. Hazy central and bibasilar opacities, left greater than right, slightly increased from prior. Suggestion of trace bilateral pleural effusions. No pneumothorax. Partial visualization of thoracolumbar fusion hardware. Upper abdomen normal. IMPRESSION: 1. Slight interval worsening of pulmonary vascular congestion with developing pulmonary edema and trace bilateral pleural effusions. 2. Cardiomegaly. Electronically signed by: Fabrice Foss M.D. 09/10/2017 7:05 AM Dictated Date/Time: 09/10/2017 7:03 AM
[2017-09-10] MEDS ORDERED: TRICOR~ORDER AWAITING ACTION SCH (08:00)
[2017-09-10 08:08] LABS: PROTHROMBIN TIME (PATIENT) 10.4 SECONDS (9.0-12.0)
[2017-09-10] MEDS ORDERED: FUROSEMIDE 40 MG TAB PO SCH (09:00)
[2017-09-10] MEDS: VENLAFAXINE HCL XR 150 MG CAPXR PO SCH (09:20)
[2017-09-10] MEDS: ATORVASTATIN 40 MG TAB PO SCH (09:20)
[2017-09-10] MEDS: CLOPIDOGREL BISULFATE 75 MG TAB PO SCH (09:20)
[2017-09-10] MEDS: AMLODIPINE BESYLATE 5 MG TAB PO SCH (09:20)
[2017-09-10] MEDS: CARVEDILOL 25 MG TAB PO SCH ×3 (09:21→21:00)
[2017-09-10] MEDS: ASPIRIN 81 MG ECTAB PO SCH (09:21)
[2017-09-10] MEDS: GABAPENTIN 300 MG CAP PO SCH ×3 (09:21→20:42)
[2017-09-10] MEDS: LISINOPRIL 5 MG TAB PO SCH (09:21)
[2017-09-10] MEDS: VENLAFAXINE HCL XR 37.5 MG CAPXR PO SCH (09:21)
[2017-09-10] MEDS: ENOXAPARIN 40 MG/0.4 ML SYR SC SCH (09:22)
[2017-09-10] MEDS: HYDROCODONE/HOMATROPINE SYRUP 5MG/1.5MG 5ML UDP PO PRN ×2 (14:08→20:49)
[2017-09-10] MEDS ORDERED: INSULIN DETEMIR FLEXPEN/FLEX TOUCH 100 UNITS/ML 3ML SQ ONE (15:15)
--- NOTE | 2017-09-10 15:23 | Pharmacy Progress Note ---
Glycemic Control Intl Consult Date of Service Sep 10, 2017. Scope Glycemic Pharmacist consulted by Dr Cobb on 09/10/17 for glycemic control and to write orders per [facility] inpatient glycemic control protocol Objective Weight (Kilograms): 103.000 Accuchecks BSG (last 24hrs): Test 09/09/17 21:30 09/10/17 03:57 09/10/17 04:05 09/10/17 07:13 Random Glucose 336 mg/dl (70-99) 379 mg/dl (70-99) Bedside Glucose 335 mg/dl (70-90) Test 09/10/17 11:27 Bedside Glucose 330 mg/dl (70-90) Laboratory Data (last 24hrs) Test 09/09/17 21:30 09/09/17 21:37 09/10/17 04:05 Anion Gap 6.0 mmol/L 15.0 mmol/L 6.0 mmol/L BUN/Creatinine Ratio 21.8 20.8 Blood Urea Nitrogen 25 mg/dl 24 mg/dl Creatinine 1.13 mg/dl 1.17 mg/dl Potassium Level 4.5 mmol/L 4.5 mmol/L Sodium Level 136 mmol/L 139 mmol/L White Blood Count 13.88 K/uL 12.49 K/uL Red Blood Count 3.68 M/uL Hemoglobin 11.0 g/dL Hematocrit 32.7 % Mean Corpuscular Volume 88.9 fL Mean Corpuscular Hemoglobin 29.9 pg Mean Corpuscular Hemoglobin Concent 33.6 g/dl Platelet Count 324 K/uL Mean Platelet Volume 9.8 fL Neutrophils (%) (Auto) 78.8 % Lymphocytes (%) (Auto) 14.1 % Monocytes (%) (Auto) 6.1 % Eosinophils (%) (Auto) 0.6 % Basophils (%) (Auto) 0.1 % Neutrophils # (Auto) 10.93 K/uL Lymphocytes # (Auto) 1.96 K/uL Monocytes # (Auto) 0.85 K/uL Eosinophils # (Auto) 0.08 K/uL Basophils # (Auto) 0.02 K/uL Recent Pertinent Medications Outpatient Anti-diabetic Regimen: * Levemir 10 units SQ HS * Glipizide 20 mg PO BIDM * Metformin 1,000mg PO BIDM The patient is currently receiving: * Basal insulin: Levemir 10 units every 24 hours given at bedtime * Correctional Insulin: Novolog Correction per scale ACHS Goal Range: Low 140 mg/dL - High 180 mg/dL Correction Factor: 40 mg/dL/unit * Prandial insulin: Per carb ratio of 1 unit per 14 grams CHO consumed * Oral Agents: on hold for admission Risk Factors for Insulin Resistance: * Infection? * Diet Assessment & Plan ASSESSMENT: * 57yo T2DM female with unknown degree of outpatient control. No recent A1c reported. Will order for tomorrow with AM labs per protocol * Pt with sustained severe hyperglycemia since admission secondary to stress/ illness and held oral agents * Pt missed HS dose of Levemir 09/09 but was given dose 0345 09/10 * Conservative NovoLog SSI parameters were started but most likely need tightened with this degree of hyperglycemia * BSGs since admission: 349, 335, 379, 330 * Pt has received 49 units of insulin thus far * Recommend tightening SQ basal bolus insulin regimen and recommend initiating IV insulin infusion to help bridge the gap until SQ insulin is at steady state. Recommend continuing IV insulin infusion until BSG < 180 x 2 and then may d/c PLAN FOR INPATIENT GLYCEMIC CONTROL: * Starting IV insulin infusion per severe stress protocol * Goal Range 140 - 180 mg/dl * May d/c when BSG < 180 mg/dl x 2 * Oral agents: * Hold outpatient oral diabetes medications * Basal insulin * Increase outpatient Levemir to 10 units SQ BID * Bolus insulin * NovoLog per scale ACHS or Q6hrs while NPO. Additional checks + coverage at 0000 & 0400 for sustained hyperglycemia. * Goal Range: Low 120 mg/dL - High 150 mg/dL * Correction Factor: 15 mg/dL/unit * Nutritional / Prandial insulin per carb ratio of 1 unit per 5 grams CHO consumed * Please note that the plan above was derived based on current level of insulin resistance and hospital stress. These recommendations are appropriate for inpatient admission only. Plan of care upon discharge will need to be reassessed to avoid potential outpatient hypo/hyperglycemia. Thank you.
[2017-09-10] MEDS ORDERED: INSULIN IV INFUSION PROTOCOL STA (15:43)
[2017-09-10] MEDS ORDERED: MODERATE STRESS LEVEL ONE (15:45)
[2017-09-10] MEDS ORDERED: INSULIN PROTOCOL GOAL RANGE ONE (15:45)
[2017-09-10] MEDS: INSULIN REGULAR 250 UNITS in SODIUM CHLORIDE 0.9% 250ML 250 ML IV SCH ×5 (17:01→22:36)
[2017-09-10] MEDS: LEVALBUTEROL 0.63MG/3 ML NEB INH PRN (17:30)
[2017-09-10] MEDS: IPRATROPIUM BROMIDE NEB SOLN 0.02% 2.5 ML VIAL INH PRN (17:30)
[2017-09-10] MEDS ORDERED: DC IV INSULIN INFUSION SCH (18:00)
[2017-09-10] MEDS ORDERED: CEFTRIAXONE SOD INJ 1 GM in DEXTROSE 5% ADD-VANTAGE 50ML 50 ML IV SCH (18:30)
[2017-09-10] MEDS ORDERED: AZITHROMYCIN 250 MG TAB PO SCH (18:30)
--- NOTE | 2017-09-10 18:31 | Progress Note ---
Internal Med Progress Note Date of Service: Sep 10, 2017. Provider Documentation: SUBJECTIVE: still has cough sob is better no chest pain no nausea resting comfortably afebrile OBJECTIVE: Vital Signs-as noted below Exam: General-alert and oriented. Not in distress ENT-normal hearing Neck-no neck masses Lungs- cta b/l no wheezing bibasilar crackles present Heart-s1 and s2 heard regular rate and rhythm no murmurs Abdomen-soft bowel sounds present no tenderness present no distension Extremities- no erythema Neuro-alert and oriented moves extremities Lab data as noted below. ASSESSMENT & PLAN: Worsening Dyspnea Pulmonary edema on ct scan Acute systolic CHF exacerbation Has cough Received Lasix 40mg IV and Levaquin, Vanco, Cefepime given in the ER repeat cxr today slight worsening of pul congestion RECENT ECHO SHOWED ef 37% lasix 40mg iv bid empiric abx with Rocephin and azithromycin repeat echo cardiology consult in am monitor in tele daily weights and i/o Elevated troponin mostly NSTEMI from demand ischemia trending down f/u echo Elevated WBC Received Levaquin, Cefepime and Vanco has cough empiric abx Rocephin and azithromycin DM type 2 Last HBA1C was 8.6 on 06/19 Hyperglycemia pharmacy on board started on insulin drip will monitor HTN Stable on amlodipine, coreg, lisinopril will monitor B Cell Lymphoma Plan to start chemo treatment Continue follow with oncology CAD Continue coreg/ asa, plavix and statin Cough B. Pertussis Pending Influenza neg abx as above Hycodan prn. DVT px on Lovenox CODE STATUS Ful code DISPOSITION monitor in tele to be determined Vital Signs: Date Time Temp Pulse Resp B/P (MAP) Pulse Ox O2 Delivery O2 Flow Rate FiO2 09/10/17 17:30 101 18 95 Room Air 09/10/17 15:59 98 103/68 (80) 97 Nasal Cannula 2.0 09/10/17 12:00 Nasal Cannula 2.0 09/10/17 11:58 36.9 88 18 129/62 (84) 96 09/10/17 08:24 36.8 84 18 138/63 (88) 96 09/10/17 08:00 Nasal Cannula 2.0 09/10/17 04:06 36.8 114 18 111/68 (82) 96 Nasal Cannula 2.0 09/10/17 04:00 Nasal Cannula 2.0 09/10/17 01:05 36.3 122 26 135/72 96 Nasal Cannula 2.0 09/10/17 00:56 116 18 109/78 94 09/10/17 00:54 116 18 109/78 94 Nasal Cannula 2.0 09/10/17 00:15 124 19 131/82 95 Nasal Cannula 2.0 09/09/17 22:30 92 Nasal Cannula 2.0 09/09/17 22:22 129 26 126/75 88 Room Air 09/09/17 22:01 131 20 96 Room Air 09/09/17 21:53 Room Air 09/09/17 21:49 126 09/09/17 21:22 99 Room Air 09/09/17 20:56 37.5 136 20 169/96 94 Room Air Lab Results: Results Past 24 Hours Test 09/09/17 21:30 09/09/17 21:35 09/09/17 21:37 09/09/17 21:45 Range/Units White Blood Count 13.88 4.8-10.8 K/uL Red Blood Count 3.68 4.2-5.4 M/uL Hemoglobin 11.0 12.0-16.0 g/dL Hematocrit 32.7 37-47 % Mean Corpuscular Volume 88.9 80-100 fL Mean Corpuscular Hemoglobin 29.9 25-34 pg Mean Corpuscular Hemoglobin Concent 33.6 32-36 g/dl Platelet Count 324 130-400 K/uL Mean Platelet Volume 9.8 7.4-10.4 fL Neutrophils (%) (Auto) 78.8 % Lymphocytes (%) (Auto) 14.1 % Monocytes (%) (Auto) 6.1 % Eosinophils (%) (Auto) 0.6 % Basophils (%) (Auto) 0.1 % Neutrophils # (Auto) 10.93 1.4-6.5 K/uL Lymphocytes # (Auto) 1.96 1.2-3.4 K/uL Monocytes # (Auto) 0.85 0.11-0.59 K/uL Eosinophils # (Auto) 0.08 0-0.5 K/uL Basophils # (Auto) 0.02 0-0.2 K/uL RDW Standard Deviation 43.9 36.4-46.3 fL RDW Coefficient of Variation 13.5 11.5-14.5 % Immature Granulocyte % (Auto) 0.3 % Immature Granulocyte # (Auto) 0.04 0.00-0.02 K/uL Sodium Level 136 136-145 mmol/L Potassium Level 4.5 3.5-5.1 mmol/L Chloride Level 103 98-107 mmol/L Carbon Dioxide Level 26 21-32 mmol/L Anion Gap 6.0 15.0 16-25 mmol/L Blood Urea Nitrogen 25 7-18 mg/dl Creatinine 1.13 0.60-1.20 mg/dl Est Creatinine Clear Calc Drug Dose 66.1 ml/min Estimated GFR () 62.9 Estimated GFR (Non- 54.3 BUN/Creatinine Ratio 21.8 10-20 Random Glucose 336 70-99 mg/dl Calcium Level 8.9 8.5-10.1 mg/dl Total Bilirubin 0.3 0.2-1 mg/dl Aspartate Amino Transf (AST/SGOT) 15 15-37 U/L Alanine Aminotransferase (ALT/SGPT) 18 12-78 U/L Alkaline Phosphatase 104 45-117 U/L Total Creatine Kinase 102 26-192 U/L Creatine Kinase MB 1.5 0.5-3.6 ng/ml Creatine Kinase MB Ratio 1.5 0-3.0 Troponin I 0.132 0-0.045 ng/ml Pro-B-Type Natriuretic Peptide 2648 0-900 pg/ml Total Protein 7.1 6.4-8.2 gm/dl Albumin 2.9 3.4-5.0 gm/dl Globulin 4.2 2.5-4.0 gm/dl Albumin/Globulin Ratio 0.7 0.9-2 Beta-Hydroxybutyric Acid 1.72 0.2-2.81 mg/dL Bedside D-Dimer > 450 0-450 ng/mlFEU Bedside Hemoglobin 11.2 12.0-16.0 g/dl Bedside Hematocrit 33 37-47 % Bedside Sodium 137 135-144 mEq/L Bedside Potassium 4.5 3.3-5.0 mEq/L Bedside Chloride 102 101-112 mEq/L Bedside Total CO2 25 24-31 mEq/l Bedside Blood Urea Nitrogen 25 7-18 mg/dl Bedside Creatinine 1.0 0.6-1.3 mg/dl Bedside Glucose (other) 349 70-99 mg/dl Bedside Ionized Calcium (Patty) 1.15 1.12-1.32 mmol/l Influenza Type A (RT-PCR) Neg for Influ A NEG Influenza Type A Antigen Neg for Influ A NEG Influenza Type B Antigen Neg for Influ B NEG Influenza Type B (RT-PCR) Neg for Influ B NEG Test 09/10/17 03:57 09/10/17 04:05 09/10/17 07:13 09/10/17 07:24 Range/Units Bedside Glucose 335 270 70-90 mg/dl White Blood Count 12.49 4.8-10.8 K/uL Red Blood Count 3.41 4.2-5.4 M/uL Hemoglobin 9.8 12.0-16.0 g/dL Hematocrit 30.7 37-47 % Mean Corpuscular Volume 90.0 80-100 fL Mean Corpuscular Hemoglobin 28.7 25-34 pg Mean Corpuscular Hemoglobin Concent 31.9 32-36 g/dl RDW Standard Deviation 44.7 36.4-46.3 fL RDW Coefficient of Variation 13.6 11.5-14.5 % Platelet Count 301 130-400 K/uL Mean Platelet Volume 9.6 7.4-10.4 fL Sodium Level 139 136-145 mmol/L Potassium Level 4.5 3.5-5.1 mmol/L Chloride Level 106 98-107 mmol/L Carbon Dioxide Level 27 21-32 mmol/L Anion Gap 6.0 3-11 mmol/L Blood Urea Nitrogen 24 7-18 mg/dl Creatinine 1.17 0.60-1.20 mg/dl Est Creatinine Clear Calc Drug Dose 63.9 ml/min Estimated GFR () 60.3 Estimated GFR (Non- 52.0 BUN/Creatinine Ratio 20.8 10-20 Random Glucose 379 70-99 mg/dl Calcium Level 8.1 8.5-10.1 mg/dl Troponin I 0.141 0.112 0-0.045 ng/ml Beta-Hydroxybutyric Acid 0.99 0.2-2.81 mg/dL Procalcitonin 0.06 0-0.5 ng/ml Prothrombin Time 10.4 9.0-12.0 SECONDS Prothromb Time International Ratio 1.0 0.9-1.1 Test 09/10/17 11:27 09/10/17 16:15 09/10/17 18:10 Range/Units Bedside Glucose 330 220 267 70-90 mg/dl Microbiology Results 09/09/17 Blood Culture, Received Pending 09/09/17 Blood Culture, Received Pending
[2017-09-10] MEDS: AZITHROMYCIN 250 MG TAB PO SCH (19:27)
[2017-09-10] MEDS: FUROSEMIDE INJ 40 MG in SYRINGE 0 ML IV SCH ×2 (20:49→22:12)
[2017-09-10] MEDS: TRAZODONE HCL 50 MG TAB PO SCH (20:50)
[2017-09-10] MEDS ORDERED: NURSING VERBAL MED ORDER ONE (21:15)
[2017-09-11] VITALS (14 sets, daily range): BP systolic 71–106; BP diastolic 46–72; PULSE 86–117; TEMP 36.8–37.6; O2SAT 90–97; Ht 165.1 cm; Wt 112.0 kg
[2017-09-11] MEDS ORDERED: INSULIN ASPART 100 UNITS/ML 3 ML PEN SC SCH
[2017-09-11] MEDS: HYDROCODONE/ACETAMOPHEN 5/325MG TAB PO PRN ×2 (01:40→10:47)
[2017-09-11] MEDS ORDERED: NURSING VERBAL MED ORDER ONE ×3 (04:00→19:30)
[2017-09-11 04:26] LABS: BASO % 0.1 %; BASO ABS # 0.01 K/uL (0-0.2); EOS % 1.4 %; IG% 0.2 %; LYMPH % 15.2 %; MEAN CELL VOLUME 91.2 fL (80-100); MEAN CORPUSCULAR HEMOGLOBIN 28.7 pg (25-34); MEAN CORPUSCULAR HGB CONC 31.4 g/dl (32-36); MEAN PLATELET VOLUME 9.6 fL (7.4-10.4); MONO % 9.1 %; PLATELET COUNT 327 K/uL (130-400); RED BLOOD COUNT 3.07 M/uL (4.2-5.4); WHITE BLOOD COUNT 12.53 K/uL (4.8-10.8)
[2017-09-11 04:48] LABS: BUN/CREATININE RATIO 15.4 (10-20); CALCIUM 8.4 mg/dl (8.5-10.1); CREATININE 2.52 mg/dl (0.60-1.20); MAGNESIUM 2.1 mg/dl (1.8-2.4); POTASSIUM 4.4 mmol/L (3.5-5.1)
[2017-09-11 05:05] LABS: ANISOCYTOSIS PRESENT; COMPLETE YES; POLYCHROMASIA 1+
[2017-09-11 06:26] LABS: ESTIMATED AVERAGE GLUCOSE 292 mg/dl; HA1C FLAG Normal (Normal)
[2017-09-11] MEDS ORDERED: PERFLUTREN LIPID MICROSPHERE (DEFINITY) IV ONE (07:14)
[2017-09-11] MEDS: CARVEDILOL 25 MG TAB PO SCH ×3 (07:38→21:00)
[2017-09-11] MEDS: VENLAFAXINE HCL XR 37.5 MG CAPXR PO SCH (07:39)
[2017-09-11] MEDS: VENLAFAXINE HCL XR 150 MG CAPXR PO SCH (07:39)
[2017-09-11] MEDS: CLOPIDOGREL BISULFATE 75 MG TAB PO SCH (07:40)
[2017-09-11] MEDS: ASPIRIN 81 MG ECTAB PO SCH (07:40)
[2017-09-11] MEDS: AMLODIPINE BESYLATE 5 MG TAB PO SCH (07:40)
[2017-09-11] MEDS: ATORVASTATIN 40 MG TAB PO SCH (07:40)
[2017-09-11] MEDS: GABAPENTIN 300 MG CAP PO SCH ×3 (07:41→22:07)
[2017-09-11] MEDS: ENOXAPARIN 40 MG/0.4 ML SYR SC SCH (07:41)
[2017-09-11] MEDS: LISINOPRIL 5 MG TAB PO SCH (07:41)
[2017-09-11] MEDS: FENOFIBRATE MICRONIZED 67 MG PO SCH (07:42)
[2017-09-11] MEDS: INSULIN ASPART 100 UNITS/ML 3 ML PEN SC SCH ×4 (08:30→22:04)
[2017-09-11] MEDS: HYDROCODONE/HOMATROPINE SYRUP 5MG/1.5MG 5ML UDP PO PRN (08:40)
[2017-09-11] MEDS ORDERED: INSULIN DETEMIR FLEXPEN/FLEX TOUCH 100 UNITS/ML 3ML SQ SCH ×2 (09:00→21:00)
[2017-09-11] MEDS ORDERED: SODIUM CHLORIDE 0.9% 500ML 500 ML IV SCH (09:15)
--- NOTE | 2017-09-11 09:24 | Pharmacy Progress Note ---
Glycemic: Assessment & Plan Date of Service Sep 11, 2017. Assessment & Plan Outpatient Anti-diabetic Regimen: * Levemir 10 units SQ HS * Glipizide 20 mg PO BIDM * Metformin 1,000mg PO BIDM ASSESSMENT: * 57yo T2DM female with poorly controlled diabetes as outpatient - evidenced by A1c of 11.8% this AM * Pt with sustained severe hyperglycemia since admission secondary to stress/ illness and held oral agents * Over the past 24 hours, patient initiated on basal/bolus regimen in addition to insulin drip to bridge the gap for SQ to take effect * Drip turned off early this AM around 0400 * Plan for today will take into consideration drip rates and SQ admin over the past 24 hours * Add midnight and 0400 checks due to recent drip transition and unknown basal needs PLAN FOR INPATIENT GLYCEMIC CONTROL: * Oral agents: * Hold outpatient oral diabetes medications * Basal insulin * Increase Levemir to 10-20 units BID based on BSG trend * 10 units for BSG <120 * 15 units for BSG 120-180 * 20 units for BSG >180 * Bolus insulin * NovoLog per scale ACHS + 00,04 * Goal Range: Low 120 mg/dL - High 150 mg/dL * Correction Factor: 10 mg/dL/unit * Nutritional / Prandial insulin per carb ratio of 1 unit per 4 grams CHO consumed * Please note that the plan above was derived based on current level of insulin resistance and hospital stress. These recommendations are appropriate for inpatient admission only. Plan of care upon discharge will need to be reassessed to avoid potential outpatient hypo/hyperglycemia. Thank you.
[2017-09-11 09:31] LABS: BASO % 0.3 %; BASO ABS # 0.03 K/uL (0-0.2); EOS % 2.3 %; HEMATOCRIT 29.8 % (37-47); IG% 0.3 %; LYMPH % 16.5 %; LYMPH ABS # 1.94 K/uL (1.2-3.4); MEAN PLATELET VOLUME 9.4 fL (7.4-10.4); MONO % 9.5 %; NEUT % 71.1 %; PLATELET COUNT 335 K/uL (130-400); RED BLOOD COUNT 3.24 M/uL (4.2-5.4); WHITE BLOOD COUNT 11.77 K/uL (4.8-10.8)
--- NOTE | 2017-09-11 09:40 | ECHOCARDIOGRAM REPORT ---
*NOTICE TO RECEIVING [employer] AGENCY This information is strictly Confidential and protected under [place] law. [place] law prohibits you from making any further disclosure of this information unless further disclosure is expressly permitted by the written consent of the person to whom it pertains or is authorized by law. A general authorization for the release of medical or other information is not sufficient for this purpose. Hospital accepts no responsibility if the information is made available to any other person, INCLUDING THE PATIENT. Interpretation Summary * Name: JENNIFER DOTY Study Date: 09/11/2017 06:37 AM BP: 87/46 mmHg * Patient Location: C.2T\S\S231\S\1 HR: 96 * : 1960 (M/d/yyyy) Gender: Female Height: 65 in * Age: 57 yrs Ethnicity: [place] Weight: 227 lb * Ordering Physician: Terry Jones * Referring Physician: Self, Referred * Performed By: Radha Wilkerson RDCS * * Reason For Study: CHF * BSA: 2.1 m2 * -- Conclusions -- * Compared to previous study of 12/27/15: LV systolic function is reduced with moderate global hypokinesis. * Mildly dilated LV chamber size with mild concentric LVH. * Moderately reduced LV systolic function with moderate global hypokinesis, EF 35-40%. * Grade II diastolic dysfunction. * The right ventricular cavity size is normal (basal dimension <4.2 cm in right ventricular apical 4-chamber view). The right ventricular systolic function is normal as assessed by tricuspid annular plane systolic excursion (TAPSE) (normal >1.5 cm). * Aortic valve sclerosis mild, without significant aortic valvular stenosis. * Mild mitral regurgitation. * Mild left atrial enlargement. Procedure Details * A complete two-dimensional transthoracic echocardiogram was performed (2D, M-mode, Doppler and color flow Doppler). * A contrast injection of Definity was performed to improve assessment of LV function. * Contrast was injected into an intravenous site in the central line. * One vial of Definity ultrasound contrast was diluted in normal saline to a total volume of 10 ml. A total of '3' ml of solution was administered during imaging. * Lot # [id number] of Definity utilized for procedure. * Expiration date Oct 20. * The attending nurse who injected the contrast agent was Nori Medrano RN. Left Ventricle * The left ventricle is mildly dilated. * There is mild concentric left ventricular hypertrophy. * Ejection Fraction = 35-40%. * Left ventricular systolic function is moderately reduced. * There is moderate global hypokinesis of the left ventricle. Right Ventricle * The right ventricular cavity size is normal (basal dimension <4.2 cm in right ventricular apical 4-chamber view). * The right ventricular systolic function is normal as assessed by tricuspid annular plane systolic excursion (TAPSE) (normal >1.5 cm). Atria * The left atrium is mildly dilated. * Right atrial size is normal. * No ASD detected; PFO is not assessed. Mitral Valve * The mitral valve leaflets appear thickened, but open well. * There is no mitral valve stenosis. * There is mild mitral regurgitation. Tricuspid Valve * The tricuspid valve is normal in structure and function. Aortic Valve * The aortic valve is tricuspid. The leaflet thickness if normal. There is no aortic stenosis, and no significant insufficiency. * Aortic valve sclerosis mild, without significant aortic valvular stenosis. * There is no significant aortic regurgitation. Pulmonic Valve * The pulmonary valve is not well seen, but the Doppler examination is normal without significant regurgitation or stenosis. Great Vessels * The aortic root and proximal ascending aorta are normal sized. Pericardium/Pleural * There is no pericardial effusion. Left Ventricular Diastolic Function * Diastolic dysfunction, Grade II (pseudonormalization pattern). MMode 2D Measurements and Calculations IVSd 1.2 cm LVIDd 5.9 cm LVIDs 4.8 cm LVPWd 1.4 cm IVS/LVPW 0.86 FS 18.0 % EDV(Teich) 170.8 ml ESV(Teich) 108.0 ml EF(Teich) 36.7 % EDV(cubed) 201.6 ml ESV(cubed) 111.3 ml EF(cubed) 44.8 % LV mass(C)d 322.0 grams LV mass(C)dI 154.3 grams/m\S\2 SV(Teich) 62.7 ml SI(Teich) 30.1 ml/m\S\2 SV(cubed) 90.3 ml SI(cubed) 43.3 ml/m\S\2 Ao root diam 2.7 cm Ao root area 5.8 cm\S\2 ACS 1.8 cm LA dimension 4.2 cm asc Aorta Diam 2.4 cm LA/Ao 1.6 LVOT diam 2.0 cm LVOT area 3.1 cm\S\2 LVAd ap4 40.4 cm\S\2 LVLd ap4 9.3 cm EDV(MOD-sp4) 139.9 ml EDV(sp4-el) 148.3 ml LVAs ap4 31.1 cm\S\2 LVLs ap4 8.5 cm ESV(MOD-sp4) 92.4 ml ESV(sp4-el) 96.9 ml EF(MOD-sp4) 33.9 % EF(sp4-el) 34.7 % LVAd ap2 42.9 cm\S\2 LVLd ap2 8.8 cm EDV(MOD-sp2) 164.8 ml EDV(sp2-el) 178.1 ml LVAs ap2 31.9 cm\S\2 LVLs ap2 8.1 cm ESV(MOD-sp2) 104.2 ml ESV(sp2-el) 107.0 ml EF(MOD-sp2) 36.8 % EF(sp2-el) 39.9 % LVLd %diff -6.58 % EDV(MOD-bp) 155.5 ml LVLs %diff -4.87 % ESV(MOD-bp) 102.7 ml EF(MOD-bp) 34.0 % SV(MOD-sp4) 47.5 ml SI(MOD-sp4) 22.7 ml/m\S\2 SV(MOD-sp2) 60.6 ml SI(MOD-sp2) 29.0 ml/m\S\2 SV(MOD-bp) 52.8 ml SI(MOD-bp) 25.3 ml/m\S\2 SV(sp4-el) 51.4 ml SI(sp4-el) 24.6 ml/m\S\2 SV(sp2-el) 71.1 ml SI(sp2-el) 34.1 ml/m\S\2 Doppler Measurements and Calculations MV E max tatiana 138.2 cm/sec MV A max tatiana 95.1 cm/sec MV E/A 1.5 MV dec time 0.18 sec Ao V2 max 135.7 cm/sec Ao max PG 7.4 mmHg Ao max PG (full) 5.4 mmHg AMY(V,A) 1.6 cm\S\2 AMY(V,D) 1.6 cm\S\2 AI max tatiana 224.0 cm/sec AI max PG 20.1 mmHg AI dec slope 250.1 cm/sec\S\2 AI P1/2t 262.3 msec LV V1 max PG 2.0 mmHg LV V1 max 70.3 cm/sec MR max tatiana 374.0 cm/sec MR max PG 56.0 mmHg MR mean tatiana 275.8 cm/sec MR mean PG 34.7 mmHg MR VTI 102.9 cm PA V2 max 97.3 cm/sec PA max PG 3.8 mmHg PA acc slope 634.7 cm/sec\S\2 PA acc time 0.10 sec TR max tatiana 243.0 cm/sec PA pr(Accel) 34.6 mmHg
[2017-09-11 09:50] LABS: COMPLETE YES; MEAN CORPUSCULAR HGB CONC 31.5 g/dl (32-36)
[2017-09-11 09:56] LABS: BUN/CREATININE RATIO 15.2 (10-20); CALCIUM 8.6 mg/dl (8.5-10.1); CREATININE 2.74 mg/dl (0.60-1.20); POTASSIUM 4.5 mmol/L (3.5-5.1)
--- NOTE | 2017-09-11 11:15 | ECHOCARDIOGRAM REPORT ---
*NOTICE TO RECEIVING [employer] AGENCY This information is strictly Confidential and protected under [place] law. [place] law prohibits you from making any further disclosure of this information unless further disclosure is expressly permitted by the written consent of the person to whom it pertains or is authorized by law. A general authorization for the release of medical or other information is not sufficient for this purpose. Hospital accepts no responsibility if the information is made available to any other person, INCLUDING THE PATIENT. Interpretation Summary * Name: JENNIFER DOTY Study Date: 09/11/2017 06:37 AM BP: 87/46 mmHg * Patient Location: .2T\S\S231\S\1 HR: 96 * : 1960 (M/d/yyyy) Gender: Female Height: 65 in * Age: 57 yrs Ethnicity: CA Weight: 227 lb * Ordering Physician: Terry Jones * Referring Physician: Self, Referred * Performed By: Radha Wilkerson RDCS * * Reason For Study: CHF * BSA: 2.1 m2 * -- Conclusions -- * Compared to previous study of 08/28/17: no significant change. * Mildly dilated LV chamber size with mild concentric LVH. * Moderately reduced LV systolic function with moderate global hypokinesis, EF 35-40%. * Grade II diastolic dysfunction. * The right ventricular cavity size is normal (basal dimension <4.2 cm in right ventricular apical 4-chamber view). The right ventricular systolic function is normal as assessed by tricuspid annular plane systolic excursion (TAPSE) (normal >1.5 cm). * Aortic valve sclerosis mild, without significant aortic valvular stenosis. * Mild mitral regurgitation. * Mild left atrial enlargement. Procedure Details * A complete two-dimensional transthoracic echocardiogram was performed (2D, M-mode, Doppler and color flow Doppler). * A contrast injection of Definity was performed to improve assessment of LV function. * Contrast was injected into an intravenous site in the central line. * One vial of Definity ultrasound contrast was diluted in normal saline to a total volume of 10 ml. A total of '3' ml of solution was administered during imaging. * Lot # [id number] of Definity utilized for procedure. * Expiration date Oct 20. * The attending nurse who injected the contrast agent was Nori Medrano RN. Left Ventricle * The left ventricle is mildly dilated. * There is mild concentric left ventricular hypertrophy. * Ejection Fraction = 35-40%. * Left ventricular systolic function is moderately reduced. * There is moderate global hypokinesis of the left ventricle. Right Ventricle * The right ventricular cavity size is normal (basal dimension <4.2 cm in right ventricular apical 4-chamber view). * The right ventricular systolic function is normal as assessed by tricuspid annular plane systolic excursion (TAPSE) (normal >1.5 cm). Atria * The left atrium is mildly dilated. * Right atrial size is normal. * No ASD detected; PFO is not assessed. Mitral Valve * The mitral valve leaflets appear thickened, but open well. * There is no mitral valve stenosis. * There is mild mitral regurgitation. Tricuspid Valve * The tricuspid valve is normal in structure and function. Aortic Valve * The aortic valve is tricuspid. The leaflet thickness if normal. There is no aortic stenosis, and no significant insufficiency. * Aortic valve sclerosis mild, without significant aortic valvular stenosis. * There is no significant aortic regurgitation. Pulmonic Valve * The pulmonary valve is not well seen, but the Doppler examination is normal without significant regurgitation or stenosis. Great Vessels * The aortic root and proximal ascending aorta are normal sized. Pericardium/Pleural * There is no pericardial effusion. Left Ventricular Diastolic Function * Diastolic dysfunction, Grade II (pseudonormalization pattern). MMode 2D Measurements and Calculations IVSd 1.2 cm LVIDd 5.9 cm LVIDs 4.8 cm LVPWd 1.4 cm IVS/LVPW 0.86 FS 18.0 % EDV(Teich) 170.8 ml ESV(Teich) 108.0 ml EF(Teich) 36.7 % EDV(cubed) 201.6 ml ESV(cubed) 111.3 ml EF(cubed) 44.8 % LV mass(C)d 322.0 grams LV mass(C)dI 154.3 grams/m\S\2 SV(Teich) 62.7 ml SI(Teich) 30.1 ml/m\S\2 SV(cubed) 90.3 ml SI(cubed) 43.3 ml/m\S\2 Ao root diam 2.7 cm Ao root area 5.8 cm\S\2 ACS 1.8 cm LA dimension 4.2 cm asc Aorta Diam 2.4 cm LA/Ao 1.6 LVOT diam 2.0 cm LVOT area 3.1 cm\S\2 LVAd ap4 40.4 cm\S\2 LVLd ap4 9.3 cm EDV(MOD-sp4) 139.9 ml EDV(sp4-el) 148.3 ml LVAs ap4 31.1 cm\S\2 LVLs ap4 8.5 cm ESV(MOD-sp4) 92.4 ml ESV(sp4-el) 96.9 ml EF(MOD-sp4) 33.9 % EF(sp4-el) 34.7 % LVAd ap2 42.9 cm\S\2 LVLd ap2 8.8 cm EDV(MOD-sp2) 164.8 ml EDV(sp2-el) 178.1 ml LVAs ap2 31.9 cm\S\2 LVLs ap2 8.1 cm ESV(MOD-sp2) 104.2 ml ESV(sp2-el) 107.0 ml EF(MOD-sp2) 36.8 % EF(sp2-el) 39.9 % LVLd %diff -6.58 % EDV(MOD-bp) 155.5 ml LVLs %diff -4.87 % ESV(MOD-bp) 102.7 ml EF(MOD-bp) 34.0 % SV(MOD-sp4) 47.5 ml SI(MOD-sp4) 22.7 ml/m\S\2 SV(MOD-sp2) 60.6 ml SI(MOD-sp2) 29.0 ml/m\S\2 SV(MOD-bp) 52.8 ml SI(MOD-bp) 25.3 ml/m\S\2 SV(sp4-el) 51.4 ml SI(sp4-el) 24.6 ml/m\S\2 SV(sp2-el) 71.1 ml SI(sp2-el) 34.1 ml/m\S\2 Doppler Measurements and Calculations MV E max tatiana 138.2 cm/sec MV A max tatiana 95.1 cm/sec MV E/A 1.5 MV dec time 0.18 sec Ao V2 max 135.7 cm/sec Ao max PG 7.4 mmHg Ao max PG (full) 5.4 mmHg AMY(V,A) 1.6 cm\S\2 AMY(V,D) 1.6 cm\S\2 AI max tatiana 224.0 cm/sec AI max PG 20.1 mmHg AI dec slope 250.1 cm/sec\S\2 AI P1/2t 262.3 msec LV V1 max PG 2.0 mmHg LV V1 max 70.3 cm/sec MR max tatiana 374.0 cm/sec MR max PG 56.0 mmHg MR mean tatiana 275.8 cm/sec MR mean PG 34.7 mmHg MR VTI 102.9 cm PA V2 max 97.3 cm/sec PA max PG 3.8 mmHg PA acc slope 634.7 cm/sec\S\2 PA acc time 0.10 sec TR max tatiana 243.0 cm/sec PA pr(Accel) 34.6 mmHg
--- NOTE | 2017-09-11 11:57 | CARDIOLOGY CONSULTATION ---
DATE OF CONSULTATION: 09/11/2017 CONSULTATION REQUESTED BY: Dr. Jones. REASON FOR CONSULTATION: Possible heart failure. HISTORY OF PRESENT ILLNESS: Ms. Andres is a very pleasant, yet very medically complex 57-year-old woman who presented to [facility] on 09/10/2017 with a complaint of cough and shortness of breath. The patient states that she has been having a nonproductive cough for the last 2 or 3 weeks. She has been seen by her primary care physician and she states that she has been given multiple rounds of antibiotics without any significant improvement. With the cough, she does have some pleuritic chest pain. It usually comes after a very hard coughing spell and she is somewhat short of breath with the coughing. She has had some low-grade fevers at home. Denies any known sick contacts, but states that she is in contact with multiple people through her employment at [employer]. She does have multiple animals at home including 1 bird, 2 cats and 2 dogs. She once again contacted her primary care physician with a complaint of cough and she was directed to the Emergency Department. Upon presentation to the Emergency Department, she was found to have some trace right pleural effusion and she was admitted for further treatment. She was given Lasix in the Emergency Department along with broad spectrum antibiotics. She states that she has not had any significant improvement since admission. Of note, the patient does carry a history of coronary artery disease, status post PCI to the ramus and mild ischemic cardiomyopathy. Recent outpatient echocardiogram showed a significant decrease in her LV systolic function; however, she has been noncompliant with followup with cardiology. PAST SURGICAL HISTORY: 1. Cardiac catheterization in April 2015 with 80% proximal ramus intermedius stenosis, receiving drug-eluting stent x1. 2. Repeat cardiac catheterization in 2015, showing no obstructive disease. 3. Tonsil and adenoidectomy. 4. Wrist surgery. 5. Hysterectomy. 6. Laparoscopic cholecystectomy. 7. Lumbar spinal fusion. 8. Recent port placement. MEDICAL ILLNESSES: 1. Coronary artery disease, status post drug-eluting stent to the ramus. 2. Ischemic cardiomyopathy. 3. Diabetes with a recent hemoglobin A1c of 11.8. 4. Elevated BMI. 5. Hypertension. 6. Dyslipidemia. 7. Stage III chronic kidney disease. 8. Obstructive sleep apnea. FAMILY HISTORY: Noncontributory. SOCIAL HISTORY: The patient denies any alcohol, tobacco or recreational drug use. She currently is employed at [employer]. REVIEW OF SYSTEMS: As per HPI, all other review of systems reviewed and negative at this time. ALLERGIES: ADHESIVE TAPE. MEDICATIONS AN OUTPATIENT: 1. Aspirin 81 mg daily. 2. Coreg 25 mg b.i.d. 3. Lisinopril 5 mg daily. 4. Atorvastatin 80 mg daily. 5. Lasix 40 mg daily. 6. Oxygen 2 liters via nasal cannula at bedtime. 7. Metformin 1000 mg b.i.d. 8. Insulin as directed. 9. Amlodipine 2.5 mg daily. 10. Percocet as needed. 11. Ativan as needed. 12. Glipizide b.i.d. 13. Neurontin 3 times a day. 14. BuSpar twice a day. 15. Hydroxyzine as needed. 16. Fenofibrate daily. 17. Clopidogrel 75 mg daily. 18. Effexor daily. PHYSICAL EXAMINATION: VITALS: Temperature 37.4, pulse 93, respiratory rate 12, blood pressure 92/52, and saturating 95% on 2 liters nasal cannula. GENERAL: Awake, alert, and oriented x3. Nonproductive cough is present. HEENT: Normocephalic and atraumatic. Pupils equal, round, and reactive to light and accommodation. Extraocular muscles intact. Anicteric sclerae. Moist mucous membranes. NECK: No JVD and no bruit. CARDIOVASCULAR: Regular. Positive S4. Normal S1 and S2. No S3. No murmurs or rubs. PULMONARY: Scant diffuse rhonchi. No rales or wheezing. ABDOMEN: Bowel sounds x4. Soft. No rebound, guarding, or tenderness. No organomegaly. EXTREMITIES: No clubbing, cyanosis or edema. +2 pedal pulses bilaterally. SKIN: Warm and dry. TEST RESULTS: 2D echocardiogram performed on 09/11/2017 was read as mildly dilated LV chamber size with mild concentric LVH, moderately reduced LV systolic function with moderate global hypokinesis, EF 35%-40%, grade 2 diastolic dysfunction, mild aortic valve sclerosis without stenosis, mild mitral regurgitation, and mild left atrial enlargement. LABORATORY STUDIES OF SIGNIFICANCE: Creatinine on admission of 1.1 and now 2.74. Hemoglobin on admission of 11 and now 9.4. IMPRESSION: 1. Cough, suspicious for atypical pneumonia or bronchitis in the setting of lymphoma. 2. B-cell lymphoma, not yet started on treatment. 3. Coronary artery disease, status post PCI of the ramus. 4. Ischemic cardiomyopathy, recently worsened down to 35%-40%. 5. Acute renal failure. 6. Anemia. 7. Diabetes. 8. Hypertension. 9. Hyperlipidemia. RECOMMENDATIONS: It was my pleasure to see Ms. Andres in consultation today. From a cardiac standpoint, I am not overly impressed by her pleural effusions nor her echocardiogram given the fact that this drop in EF has been present for at least a few weeks now. I do not believe this represents acute decompensation. Of more concern is the fact that she does have this cough, shortness of breath and new onset renal failure and given her B cell lymphoma, I am concerned that she may have underlying HIV disease and she should be covered appropriately with antibiotics and antivirals. I would recommend HIV testing and likely infectious disease consultation. At the same time, I will take the liberty of consulting our nephrology colleagues for acute renal failure. I have given her small bolus of 500 mL of normal saline with increase of her blood pressure and I will take this opportunity to get her Coreg back on board. I will hold off any diuretics or any nephrotoxic agents at this point and her MERY inhibitor will be held. There is no indication for other further emergent cardiac intervention, especially in the setting of no signs of objective ischemia and acutely worsening renal function. We will continue to follow her with you. Thank you very much for allowing me to participate in the care of your patient.
[2017-09-11] MEDS: HYDROmorphone INJ 0.5 MG/0.5 ML SYR IV PRN (14:18)
[2017-09-11] MEDS ORDERED: VANCOMYCIN INJ 1,000 MG in SODIUM CHLORIDE 0.9% 250ML 250 ML IV SCH (17:30)
[2017-09-11] MEDS ORDERED: PIPERACILL/TAZOBAC IV 4.5 GM in DEXTROSE 5% 100ML 100 ML IV SCH (17:30)
[2017-09-11] MEDS ORDERED: SODIUM CHLORIDE 0.9% 1000ML 1,000 ML IV SCH (17:30)
--- NOTE | 2017-09-11 18:17 | Progress Note ---
Internal Med Progress Note Date of Service: Sep 11, 2017. Provider Documentation: SUBJECTIVE: still has cough says sob is better afebrile denies chest pain nauseous BP running low OBJECTIVE: Vital Signs-as noted below Exam: General-alert and oriented. Not in distress ENT-normal hearing Neck-no neck masses Lungs- cta b/l no wheezing bibasilar crackles present Heart-s1 and s2 heard regular rate and rhythm no murmurs Abdomen-soft bowel sounds present no tenderness present no distension Extremities- no erythema no edema Neuro-alert and oriented moves extremities Lab data as noted below. ASSESSMENT & PLAN: Worsening Dyspnea Pulmonary edema on ct scan Acute systolic CHF exacerbation? Has cough Received Lasix 40mg IV and Levaquin, Vanco, Cefepime given in the ER repeat cxr today slight worsening of pul congestion RECENT ECHO SHOWED ef 37% lasix 40mg iv bid repeat echo shows ef 35-40% cardiology on board renal function worsened with Lasix. Lasix stopped continue to monitor Pneumonia? initially empirically started on rocephin and azithromycin rocephin stopped and added zosyn and vanco today will f/u Hypotension from Lasix? fluid bolus and monitor. ARF after lasix fluid bolus given nephrology consulted f/u labs Elevated troponin mostly NSTEMI from demand ischemia trending down f/u echo- no change from previous echo Elevated WBC Received Levaquin, Cefepime and Vanco has cough empiric abx as above f/u cx DM type 2 Last HBA1C was 8.6 on 06/19 Hyperglycemia pharmacy on board hba1c 11.8 will monitor HTN Stable on amlodipine, coreg, lisinopril will monitor B Cell Lymphoma Plan to start chemo treatment Continue follow with oncology CAD Continue coreg/ asa, plavix and statin Cough B. Pertussis Pending Influenza neg abx as above Hycodan prn. DVT px on Lovenox CODE STATUS Ful code DISPOSITION monitor in tele to be determined Vital Signs: Date Time Temp Pulse Resp B/P (MAP) Pulse Ox O2 Delivery O2 Flow Rate FiO2 09/11/17 17:02 37.0 101 18 71/47 (55) 90 Nasal Cannula 2.0 09/11/17 15:51 37.1 98 16 84/51 (62) 92 Room Air 94/64 (74) 09/11/17 12:00 Nasal Cannula 2.0 09/11/17 11:31 37.1 109 18 90/57 (68) 96 Room Air 2.0 09/11/17 10:27 106/72 (83) 09/11/17 08:01 37.4 93 16 92/52 (65) 95 09/11/17 08:00 Nasal Cannula 2.0 09/11/17 04:00 Nasal Cannula 2.0 09/11/17 03:36 37.1 96 19 87/46 (60) 97 Nasal Cannula 2.0 09/11/17 00:04 36.8 97 16 83/55 (64) 92 Nasal Cannula 2.0 09/11/17 00:00 Nasal Cannula 2.0 09/10/17 20:51 37.4 98 20 81/55 (64) 96 Nasal Cannula 09/10/17 20:00 95 Room Air 2.0 Lab Results: Results Past 24 Hours Test 09/10/17 19:14 09/10/17 20:24 09/10/17 21:26 09/10/17 22:31 Range/Units Bedside Glucose 244 287 342 335 70-90 mg/dl Test 09/10/17 23:39 09/11/17 00:28 09/11/17 01:29 09/11/17 02:40 Range/Units Bedside Glucose 243 210 150 148 70-90 mg/dl Test 09/11/17 03:29 09/11/17 04:11 09/11/17 06:59 09/11/17 07:51 Range/Units Bedside Glucose 111 142 104 70-90 mg/dl White Blood Count 12.53 4.8-10.8 K/uL Red Blood Count 3.07 4.2-5.4 M/uL Hemoglobin 8.8 12.0-16.0 g/dL Hematocrit 28.0 37-47 % Mean Corpuscular Volume 91.2 80-100 fL Mean Corpuscular Hemoglobin 28.7 25-34 pg Mean Corpuscular Hemoglobin Concent 31.4 32-36 g/dl Platelet Count 327 130-400 K/uL Mean Platelet Volume 9.6 7.4-10.4 fL Neutrophils (%) (Auto) 74.0 % Lymphocytes (%) (Auto) 15.2 % Monocytes (%) (Auto) 9.1 % Eosinophils (%) (Auto) 1.4 % Basophils (%) (Auto) 0.1 % Neutrophils # (Auto) 9.28 1.4-6.5 K/uL Lymphocytes # (Auto) 1.90 1.2-3.4 K/uL Monocytes # (Auto) 1.14 0.11-0.59 K/uL Eosinophils # (Auto) 0.17 0-0.5 K/uL Basophils # (Auto) 0.01 0-0.2 K/uL RDW Standard Deviation 46.3 36.4-46.3 fL RDW Coefficient of Variation 14.0 11.5-14.5 % Immature Granulocyte % (Auto) 0.2 % Immature Granulocyte # (Auto) 0.03 0.00-0.02 K/uL Polychromasia 1+ Basophilic Stippling 1+ Anisocytosis PRESENT Sodium Level 137 136-145 mmol/L Potassium Level 4.4 3.5-5.1 mmol/L Chloride Level 105 98-107 mmol/L Carbon Dioxide Level 24 21-32 mmol/L Anion Gap 8.0 3-11 mmol/L Blood Urea Nitrogen 39 7-18 mg/dl Creatinine 2.52 0.60-1.20 mg/dl Est Creatinine Clear Calc Drug Dose 29.7 ml/min Estimated GFR () 23.9 Estimated GFR (Non- 20.6 BUN/Creatinine Ratio 15.4 10-20 Random Glucose 108 70-99 mg/dl Estimated Average Glucose 292 mg/dl Hemoglobin A1c 11.8 4.5-5.6 % Calcium Level 8.4 8.5-10.1 mg/dl Magnesium Level 2.1 1.8-2.4 mg/dl Test 09/11/17 09:16 09/11/17 11:05 09/11/17 15:50 09/11/17 17:30 Range/Units White Blood Count 11.77 4.8-10.8 K/uL Red Blood Count 3.24 4.2-5.4 M/uL Hemoglobin 9.4 12.0-16.0 g/dL Hematocrit 29.8 37-47 % Mean Corpuscular Volume 92.0 80-100 fL Mean Corpuscular Hemoglobin 29.0 25-34 pg Mean Corpuscular Hemoglobin Concent 31.5 32-36 g/dl Platelet Count 335 130-400 K/uL Mean Platelet Volume 9.4 7.4-10.4 fL Neutrophils (%) (Auto) 71.1 % Lymphocytes (%) (Auto) 16.5 % Monocytes (%) (Auto) 9.5 % Eosinophils (%) (Auto) 2.3 % Basophils (%) (Auto) 0.3 % Neutrophils # (Auto) 8.38 1.4-6.5 K/uL Lymphocytes # (Auto) 1.94 1.2-3.4 K/uL Monocytes # (Auto) 1.12 0.11-0.59 K/uL Eosinophils # (Auto) 0.27 0-0.5 K/uL Basophils # (Auto) 0.03 0-0.2 K/uL RDW Standard Deviation 46.3 36.4-46.3 fL RDW Coefficient of Variation 13.9 11.5-14.5 % Immature Granulocyte % (Auto) 0.3 % Immature Granulocyte # (Auto) 0.03 0.00-0.02 K/uL Sodium Level 138 136-145 mmol/L Potassium Level 4.5 3.5-5.1 mmol/L Chloride Level 106 98-107 mmol/L Carbon Dioxide Level 27 21-32 mmol/L Anion Gap 5.0 3-11 mmol/L Blood Urea Nitrogen 42 7-18 mg/dl Creatinine 2.74 0.60-1.20 mg/dl Est Creatinine Clear Calc Drug Dose 27.4 ml/min Estimated GFR () 21.6 Estimated GFR (Non- 18.6 BUN/Creatinine Ratio 15.2 10-20 Random Glucose 183 70-99 mg/dl Calcium Level 8.6 8.5-10.1 mg/dl Bedside Glucose 182 138 70-90 mg/dl Test 09/11/17 17:31 Range/Units Microbiology Results 09/11/17 MRSA DNA Surveillance Screen, Dia Batch Pending
[2017-09-11 18:18] LABS: HEMATOCRIT 27.9 % (37-47)
[2017-09-11] MEDS ORDERED: PIPERACILL/TAZOBAC CONSULT ACTIVE PRN (18:30)
[2017-09-11] MEDS ORDERED: VANCOMYCIN INJ 2,250 MG in SODIUM CHLORIDE 0.9% 500ML 500 ML IV ONE (18:30)
[2017-09-11] MEDS ORDERED: PIPERACILL/TAZOBAC IV 4.5 GM in DEXTROSE 5% 100ML IV ONE (18:30)
[2017-09-11] MEDS ORDERED: VANCOMYCIN CONSULT ACTIVE PRN (18:30)
[2017-09-11] MEDS: AZITHROMYCIN 250 MG TAB PO SCH (19:01)
[2017-09-11] MEDS: LEVALBUTEROL 0.63MG/3 ML NEB INH PRN (19:26)
[2017-09-11] MEDS: IPRATROPIUM BROMIDE NEB SOLN 0.02% 2.5 ML VIAL INH PRN (19:26)
[2017-09-11] MEDS ORDERED: SODIUM CHLORIDE 0.9% 500ML 500 ML IV ONE (19:45)
--- NOTE | 2017-09-11 20:40 | Pharmacy Progress Note ---
Pharmacy Antibiotic Consult Date of Service: Sep 11, 2017. Pharmacy Dosing Scope Pharmacy is consulted to initiate vancomycin and zosyn IV dosing therapy, order appropriate labs and adjust drug dose/frequency. Subjective The patient is a 57 year old female admitted on Sep 10, 2017 at 00:08. Objective Height (Feet): 5 Height (Inches): 5.00 Weight (Kilograms): 104.000 Lab Results (24hrs): Test 09/11/17 04:11 09/11/17 09:16 09/11/17 11:05 09/11/17 15:50 White Blood Count 12.53 K/uL (4.8-10.8) 11.77 K/uL (4.8-10.8) Red Blood Count 3.07 M/uL (4.2-5.4) 3.24 M/uL (4.2-5.4) Hemoglobin 8.8 g/dL (12.0-16.0) 9.4 g/dL (12.0-16.0) Hematocrit 28.0 % (37-47) 29.8 % (37-47) Mean Corpuscular Volume 91.2 fL (80-100) 92.0 fL (80-100) Mean Corpuscular Hemoglobin 28.7 pg (25-34) 29.0 pg (25-34) Mean Corpuscular Hemoglobin Concent 31.4 g/dl (32-36) 31.5 g/dl (32-36) Platelet Count 327 K/uL (130-400) 335 K/uL (130-400) Mean Platelet Volume 9.6 fL (7.4-10.4) 9.4 fL (7.4-10.4) Neutrophils (%) (Auto) 74.0 % 71.1 % Lymphocytes (%) (Auto) 15.2 % 16.5 % Monocytes (%) (Auto) 9.1 % 9.5 % Eosinophils (%) (Auto) 1.4 % 2.3 % Basophils (%) (Auto) 0.1 % 0.3 % Neutrophils # (Auto) 9.28 K/uL (1.4-6.5) 8.38 K/uL (1.4-6.5) Lymphocytes # (Auto) 1.90 K/uL (1.2-3.4) 1.94 K/uL (1.2-3.4) Monocytes # (Auto) 1.14 K/uL (0.11-0.59) 1.12 K/uL (0.11-0.59) Eosinophils # (Auto) 0.17 K/uL (0-0.5) 0.27 K/uL (0-0.5) Basophils # (Auto) 0.01 K/uL (0-0.2) 0.03 K/uL (0-0.2) RDW Standard Deviation 46.3 fL (36.4-46.3) 46.3 fL (36.4-46.3) RDW Coefficient of Variation 14.0 % (11.5-14.5) 13.9 % (11.5-14.5) Immature Granulocyte % (Auto) 0.2 % 0.3 % Immature Granulocyte # (Auto) 0.03 K/uL (0.00-0.02) 0.03 K/uL (0.00-0.02) Polychromasia 1+ Basophilic Stippling 1+ Anisocytosis PRESENT Sodium Level 137 mmol/L (136-145) 138 mmol/L (136-145) Potassium Level 4.4 mmol/L (3.5-5.1) 4.5 mmol/L (3.5-5.1) Chloride Level 105 mmol/L (98-107) 106 mmol/L (98-107) Carbon Dioxide Level 24 mmol/L (21-32) 27 mmol/L (21-32) Anion Gap 8.0 mmol/L (3-11) 5.0 mmol/L (3-11) Blood Urea Nitrogen 39 mg/dl (7-18) 42 mg/dl (7-18) Creatinine 2.52 mg/dl (0.60-1.20) 2.74 mg/dl (0.60-1.20) Est Creatinine Clear Calc Drug Dose 29.7 ml/min 27.4 ml/min Estimated GFR () 23.9 21.6 Estimated GFR (Non- 20.6 18.6 BUN/Creatinine Ratio 15.4 (10-20) 15.2 (10-20) Random Glucose 108 mg/dl (70-99) 183 mg/dl (70-99) Estimated Average Glucose 292 mg/dl Hemoglobin A1c 11.8 % (4.5-5.6) Calcium Level 8.4 mg/dl (8.5-10.1) 8.6 mg/dl (8.5-10.1) Magnesium Level 2.1 mg/dl (1.8-2.4) Bedside Glucose 182 mg/dl (70-90) 138 mg/dl (70-90) Test 09/11/17 17:30 09/11/17 17:31 HIV (1&2) Ab and P24 Ag, 4th Gener NEG (NEG) Hemoglobin 8.8 g/dL (12.0-16.0) Hematocrit 27.9 % (37-47) Micro Results: Item Value Date Time MRSA DNA Surveillance Screen - Final Complete 09/11/17 0000 Nasal Specimen Positive for MRSA by DNA Probe Blood Culture - Preliminary Resulted 09/09/17 2200 Blood NO GROWTH TO DATE. Blood Culture - Preliminary Resulted 09/09/17 2130 Blood NO GROWTH TO DATE. Assessment & Plan Patient started on vancomycin and zosyn for pneumonia after not improving on rocephin/azithromycin. BC x 2 are no growth. Nasal swab positive for MRSA. Vancomycin: * Loading dose of vancomycin 2250 mg x 1 given this evening (~21 mg/kg) * Due to unstable renal function, from 1.17 to 2.74 mg/dL today will dose by levels * Will order a random vancomycin level in the am to assist with further dosing ( maintain trough 15-20 mcg/ml) * Estimated kinetics: t1/2>24 hrs, ke~0.026 hr-1, CrCl ~27 ml/min Zosyn: * 4.5 gm x 1 ; will start 4.5 gm iv q 12 hrs due to rapid change in renal function (BMI>35 kg/m2 therefore 4.5gm dose used) Pharmacy will continue to follow and will adjust dose/frequency as necessary. Thank you
[2017-09-11 21:39] LABS: BORDETELLA PERTUSSIS SOURCE Swab
[2017-09-11] MEDS: TRAZODONE HCL 50 MG TAB PO SCH (22:07)
[2017-09-12] VITALS (9 sets, daily range): BP systolic 97–115; BP diastolic 55–70; PULSE 72–114; TEMP 36.5–36.8; O2SAT 95–99
[2017-09-12] MEDS ORDERED: PIPERACILL/TAZOBAC IV 4.5 GM in DEXTROSE 5% 100ML IV SCH ×2
[2017-09-12] MEDS: INSULIN ASPART 100 UNITS/ML 3 ML PEN SC SCH ×6 (00:25→21:41)
[2017-09-12] MEDS: PIPERACILL/TAZOBAC IV 4.5 GM in DEXTROSE 5% 100ML IV SCH ×2 (02:51→15:05)
[2017-09-12 05:11] LABS: BASO % 0.2 %; BASO ABS # 0.03 K/uL (0-0.2); EOS % 1.6 %; HEMATOCRIT 26.6 % (37-47); IG% 0.2 %; LYMPH % 12.3 %; MEAN CELL VOLUME 91.7 fL (80-100); MEAN CORPUSCULAR HEMOGLOBIN 29.3 pg (25-34); MEAN PLATELET VOLUME 9.5 fL (7.4-10.4); MONO % 11.3 %; NEUT % 74.4 %; PLATELET COUNT 349 K/uL (130-400); WHITE BLOOD COUNT 12.16 K/uL (4.8-10.8)
[2017-09-12 05:29] LABS: BUN/CREATININE RATIO 15.3 (10-20); CALCIUM 8.3 mg/dl (8.5-10.1); CREATININE 3.39 mg/dl (0.60-1.20); MAGNESIUM 2.2 mg/dl (1.8-2.4); POTASSIUM 4.8 mmol/L (3.5-5.1)
[2017-09-12 05:37] LABS: COMPLETE YES
[2017-09-12] MEDS: HEPARIN SOD 5000 UNIT/0.5 ML CARP SC SCH ×3 (05:52→21:42)
--- NOTE | 2017-09-12 07:27 | DIAGNOSTIC IMAGING REPORT ---
CHEST ONE VIEW PORTABLE CLINICAL HISTORY: pul.congestion dyspnea COMPARISON STUDY: 09/10/2017 FINDINGS: Cardiomegaly. Central catheter remains this. Vena cava. Components of congestive heart failure are unaltered. Pulmonary vasculature remains prominent. IMPRESSION: Stable radiographic findings of congestive failure The above report was generated using voice recognition software. It may contain grammatical, syntax or spelling errors. Electronically signed by: Jordan Mitchell M.D. 09/12/2017 7:26 AM Dictated Date/Time: 09/12/2017 7:24 AM
[2017-09-12 07:43] LABS: PHOSPHORUS 6.5 mg/dl (2.5-4.9); URIC ACID 7.8 mg/dl (2.6-7.2)
[2017-09-12] MEDS: AMLODIPINE BESYLATE 5 MG TAB PO SCH (08:10)
[2017-09-12] MEDS: CARVEDILOL 25 MG TAB PO SCH ×2 (08:11→21:35)
[2017-09-12] MEDS: VENLAFAXINE HCL XR 150 MG CAPXR PO SCH (08:12)
[2017-09-12] MEDS: CLOPIDOGREL BISULFATE 75 MG TAB PO SCH (08:12)
[2017-09-12] MEDS: VENLAFAXINE HCL XR 37.5 MG CAPXR PO SCH (08:12)
[2017-09-12] MEDS: GABAPENTIN 300 MG CAP PO SCH ×3 (08:12→21:35)
[2017-09-12] MEDS: FENOFIBRATE MICRONIZED 67 MG PO SCH (08:13)
[2017-09-12] MEDS: ATORVASTATIN 40 MG TAB PO SCH (08:13)
[2017-09-12] MEDS: ASPIRIN 81 MG ECTAB PO SCH (08:16)
--- NOTE | 2017-09-12 08:16 | NEPHROLOGY CONSULTATION ---
DATE OF CONSULTATION: 09/12/2017 ATTENDING OF RECORD: Dr. Cobb. REASON FOR CONSULTATION: MARIKA. HISTORY OF PRESENT ILLNESS: This is a 57-year-old female with a history of type 2 diabetes and hypertension; does not use any ibuprofen, Motrin, or Aleve and has not smoked; who was recently diagnosed with diffuse large B cell lymphoma in April. She has a port in place, but has not begun treatment for it yet, who presented with worsening shortness of breath and cough. Cardiology evaluated the patient and has ischemic cardiomyopathy, which recently worsened down to 35% EF. During the workup for shortness of breath, the patient did undergo a CTA with contrast, which was negative for PE, but did show diffuse interlobular septal thickening with ground-glass airspace opacities, cardiomegaly and small bilateral pleural effusions, likely representing pulmonary edema as well as progressive lymphadenopathy. The patient's creatinine on admission was 1.13. However, after the contrast, creatinine continues to worsen and is now up to 3.39. Urination has also trended down. The patient feels that she is not urinating as much, but does feel like her shortness of breath is improving. Currently covering for atypical pneumonia/bronchitis with Zosyn 4.5 grams IV q. 12 hours and vancomycin. With worsening kidney function, MERY inhibitor was stopped and no more diuretics were given. The patient was on Lasix 40 mg IV b.i.d., which had been held. REVIEW OF SYSTEMS: No fevers or chills. No headaches. No blurry vision. Positive cough. Positive shortness of breath. Positive nausea and vomiting on admission, which have improved. No chest pain. Positive constipation. Positive decreased urination. Positive fatigue. No rash or itching. All other review of systems otherwise negative. PAST MEDICAL HISTORY: Obstructive sleep apnea, hyperlipidemia, hypertension, diabetes, and history of heart disease. PAST SURGICAL HISTORY: Drug-eluting stent in 2015, tonsillectomy, cholecystectomy, port placement, and lumbar spinal fusion. FAMILY HISTORY: No renal disease in family. SOCIAL HISTORY: No alcohol, drugs or tobacco. CURRENT MEDICATIONS: Heparin 5000 units subQ q. 8 hours, Zosyn 4.5 grams IV q. 12 hours, Neurontin 300 mg p.o. t.i.d., trazodone 50 mg at night, BuSpar 20 mg b.i.d., sliding scale insulin, Zithromax 500 mg p.o. every day, fenofibrate 67 mg daily, aspirin 81 mg daily, Lipitor 80 mg daily, Plavix 75 mg daily, Effexor 150 mg daily as well as 37.5 mg daily, Norvasc 2.5 mg daily, and Coreg 25 mg p.o. b.i.d. PHYSICAL EXAMINATION: VITAL SIGNS: Temperature 36.7, pulse 101, respiratory rate 18, blood pressure 100/70, and satting 98% on 2 liters. GENERAL: Awake, alert, and oriented x3. EYES: No scleral icterus. ENT: Moist mucous membranes. NECK: Supple. PULMONARY: slight wheeze CARDIAC: Regular rate and rhythm. ABDOMEN: Bowel sounds positive. Soft and nontender. EXTREMITIES: No clubbing, cyanosis or edema. NEUROLOGICALLY: Nonfocal. DERMATOLOGIC: No rash or ulcers noted. LABORATORY DATA: Sodium level is 134, potassium 4.8, chloride is 104, bicarb is 23, BUN is 52, creatinine is 3.39, glucose 98, calcium is 8.3, and magnesium is 2.2. White count is 12, H&H 8.5 and 26.6, and platelet count is 349. Vancomycin level is 24. INR is 1. Blood culture negative. Chest x-ray shows cardiomegaly, slight interval worsening of pulmonary vascular congestion with developing pulmonary edema and trace bilateral pleural effusions. Echo shows an EF of 35%-40%, grade 2 diastolic dysfunction. ASSESSMENT AND PLAN: 1. Acute kidney injury in the setting of contrast and diuresis. Creatinine likely to continue to worsen before it starts to improve and diuretics have been appropriately held. Blood pressures were quite low in the 70s-80s. So, the patient may have an element of acute tubular necrosis as well. The patient is also with large B cell lymphoma. Depending on the level of aggressiveness of this lymphoma, one could always consider tumor lysis as well. Check uric acid level and phosphorus level. Calcium levels are not significantly low at this time. Normally, would like to give IV fluids in this situation to help raise blood pressures and help increase perfusion to the kidneys. However, the patient does have trace bilateral pleural effusions and findings of congestive heart failure on chest x-ray. We will discuss further with primary hospitalist as well as cardiology in terms of whether or not to give a low rate of IV fluids, i.e., normal saline at 50 mL an hour. Also check a renal ultrasound and check urinalysis and random urine sodium to be thorough. I feel this is most likely contrast-induced nephrotoxicity, although may have been severe enough to cause acute tubular necrosis as well. Treatment would be holding further diuretics and trying to improve perfusion to the kidneys by giving low rate of IV fluids if pulmonary status is stable enough to pursue IV fluids. I appreciate the consultation. YUMIKO
--- NOTE | 2017-09-12 08:33 | Pharmacy Progress Note ---
Glycemic: Assessment & Plan Date of Service Sep 12, 2017. Assessment & Plan Outpatient Anti-diabetic Regimen: * Levemir 10 units SQ HS * Glipizide 20 mg PO BIDM * Metformin 1,000mg PO BIDM ASSESSMENT: 09/11/17 * 57yo T2DM female with poorly controlled diabetes as outpatient - evidenced by A1c of 11.8% this AM * Pt with sustained severe hyperglycemia since admission secondary to stress/ illness and held oral agents * Over the past 24 hours, patient initiated on basal/bolus regimen in addition to insulin drip to bridge the gap for SQ to take effect * Drip turned off early this AM around 0400 * Plan for today will take into consideration drip rates and SQ admin over the past 24 hours * Add midnight and 0400 checks due to recent drip transition and unknown basal needs 09/12/17 * Pt has received a total of 83 units of insulin over the past 24 hours * BSGs ranging 104-208 mg/dL * Fasting BSG this AM 98 mg/dL -slightly below goal range * Reduce basal insulin * Prandial coverage seemed appropriate yesterday; however, it is documented that patient's family has been bringing in snacks that patient is not being covered for * Snacking puts the patient at a higher risk of highs/lows as she may be under/ overcorrected throughout the day PLAN FOR INPATIENT GLYCEMIC CONTROL: * Oral agents: * Hold outpatient oral diabetes medications * Basal insulin * Levemir 15 units x 1 tonight to total 25 units for the day * Continue 12 units BID starting tomorrow AM * Bolus insulin * NovoLog per scale ACHS * Goal Range: Low 120 mg/dL - High 150 mg/dL * Correction Factor: 15 mg/dL/unit * Nutritional / Prandial insulin per carb ratio of 1 unit per 5 grams CHO consumed * Please note that the plan above was derived based on current level of insulin resistance and hospital stress. These recommendations are appropriate for inpatient admission only. Plan of care upon discharge will need to be reassessed to avoid potential outpatient hypo/hyperglycemia. Thank you.
--- NOTE | 2017-09-12 08:39 | Pharmacy Progress Note ---
Pharmacy Abx Dose Short Note Date of Service Sep 12, 2017. Assessment & Plan Broadening coverage to Vanco/Zosyn. Pt previously failed Rocephin/Zithromax. MRSA nares are positive. Her renal fxn further decompensated overnight. Based on kinetic data I suspected that she will need to be re-dosed on 09/13/17 around 12:00-14:00. Random lvl ordered for 09/13/17 @0444 to ensure she is achieving therapeutic lvls. Her habitus is indicative of vancomycin accumulation. Her BCx2 both yield NGTD. At this juncture I dont feel d/c'ing the Zosyn is fregoso bc she hasn't received a full 24hrs of broadened coverage. Depending on Pt' s clinical status, it may prove prudent to cut it tomorrow. Will not change Zosyn from q12 to q8 due to worsening renal fxn. Pharmacy will continue to follow and will adjust dose/frequency as necessary. Thank you.
--- NOTE | 2017-09-12 08:55 | DIAGNOSTIC IMAGING REPORT ---
RENAL ULTRASOUND HISTORY: Acute kidney injury. screen for hydro COMPARISON: None. FINDINGS: Right kidney: 12.3 cm. No hydronephrosis. Normal corticomedullary differentiation and cortical thickness. Left kidney: 12.3 cm. No hydronephrosis. Normal corticomedullary differentiation and cortical thickness. Bladder: No bladder wall thickening. The bilateral ureteral jets were identified. IMPRESSION: Normal renal ultrasound. Electronically signed by: Remy Jimenez M.D. 09/12/2017 8:53 AM Dictated Date/Time: 09/12/2017 8:44 AM
[2017-09-12] MEDS ORDERED: INSULIN DETEMIR FLEXPEN/FLEX TOUCH 100 UNITS/ML 3ML SQ SCH ×3 (09:00→21:00)
[2017-09-12] MEDS: MUPIROCIN 2% OINT 22 GM TUBE EXT SCH ×2 (09:00→21:00)
--- NOTE | 2017-09-12 10:02 | Cardiology Follow-Up ---
Subjective Subjective Date of Service: Sep 12, 2017. Pt evaluation today including: conversation w/ patient, physical exam, chart review, lab review, review of studies, review of inpatient medication list Additional Details: Pt seen and examined, appears to be more pale today, states that she feels very tired. With continued cough and sob, no change since admission. Denies cp, palpitations, lightheadedness or dizziness. Tele reviewed: sinus rhythm/sinus tachycardia without arrhythmia Problem List Medical Problems: (1) Acute bronchitis Status: Acute (2) Acute chest pain Status: Acute (3) Anemia Status: Acute (4) Enlarged lymph node Status: Acute (5) Hypoxia Status: Acute (6) Neck pain on right side Status: Acute (7) Pulmonary edema Status: Acute Review of Systems Respiratory: + cough, + shortness of breath, + dyspnea on exertion Cardiac: No see HPI, No chest pain, No orthopnea, No PND, No edema, No claudication, No palpitations, No problem reported Objective Vital Signs Last Vital Signs Documentation Date Time Temp Pulse Resp B/P (MAP) Pulse Ox O2 Delivery O2 Flow Rate FiO2 09/12/17 08:20 36.5 110 18 98/59 (72) 99 09/12/17 04:03 Nasal Cannula 2.0 Physical Exam: General Appearance: WD/WN, no apparent distress, + obese Eyes: bilateral eyes normal inspection, bilateral eyes PERRL, bilateral eyes EOMI ENT: normal ENT inspection, hearing grossly normal, pharynx normal Neck: supple, no adenopathy, thyroid normal, no JVD, no carotid bruits, trachea midline Respiratory/Chest: chest non-tender, no respiratory distress, no accessory muscle use, + rhonchi Cardiovascular: regular rate, rhythm, + tachycardia, + gallop/S4 (3/6 holosystolic. LSB, 5th ICS with radiation to L axilla) Abdomen: normal bowel sounds, non tender, soft, no organomegaly Extremities: normal inspection, no pedal edema, no calf tenderness Neurologic/Psychiatric: patient care manager II-XII nml as tested, no motor/sensory deficits, alert, normal mood/affect, oriented x 3 Skin: normal color, warm/dry, no rash Lymphatic: no adenopathy Assessment and Plan 1. cough/sob slight vascular congestion but do not believe significant enough to explain symptoms unable to diurese given renal function no improvement of symptoms after receiving lasix in ED Pulm to evaluate 2. cardiomyopathy known ischemic cardiomyopathy with EF on 08/28 outpatient echo found EF to be 37% and has remained stable unclear if secondary to underlying stressors: emotional, lymphoma, possible infection no sign of active ischemia no role for cath at this time especially given renal function keerthi obviously held cont evidence based beta isael: coreg unable to start spironolactone or Entresto given renal function follow 3. acute renal failure appreciate nephrology input cont to monitor on tele
[2017-09-12] MEDS ORDERED: SODIUM CHLORIDE 0.9% 1000ML 1,000 ML IV SCH (10:15)
[2017-09-12] MEDS: HYDROmorphone INJ 0.5 MG/0.5 ML SYR IV PRN (15:05)
[2017-09-12] MEDS: LEVALBUTEROL 0.63MG/3 ML NEB INH PRN (15:19)
[2017-09-12] MEDS: IPRATROPIUM BROMIDE NEB SOLN 0.02% 2.5 ML VIAL INH PRN (15:19)
[2017-09-12] MEDS ORDERED: PANTOprazole SOD 40 MG TAB PO STA (15:31)
--- NOTE | 2017-09-12 15:41 | Pulmonary Consultation ---
History General Date of Service: Sep 12, 2017. Stated Complaint: Dyspnea HPI Review The patient is a 57 year old female who presents to [facility] with complaints of Dyspnea. The patient's primary care provider is Orion Murray D.O.. Mrs. Andres is a 57-year-old female with history of recent diagnosis of diffuse large B-cell lymphoma involving the right subclavicular notable region in April 2017 who presented to the ER on 09/09/2017 with complaints of two-week history of progressive dyspnea at rest and on exertion associated with dry nonproductive cough. She complains of orthopnea, paroxysmal nocturnal dyspnea and lower extremity swelling. She was prescribed a course of Levaquin and codeine cough syrup by PCP without resolution of her symptoms. She describes an intractable cough associated with a sensation of suffocating. She does admit to generalized malaise and fatigue associated with weight loss fevers and chills. She denies she does complain of intermittent chest discomfort with exertion. She denies any palpitations, lightheadedness or dizziness. She denies any recent travel or sick contacts. She also has history of obstructive sleep apnea intolerant to CPAP on nocturnal oxygen, coronary artery disease status post cath in 2014, systolic heart failure, CKD stage III, hyperlipidemia , type 2 diabetes and hypertension. She had a left subclavian chemotherapy port placed last week on 09/01/2017 for upcoming chemotherapy. Upon further questioning, she states that she can recall that she has similar intractable cough several years ago when she as ACEI. Cough resolved after discontinuation and place on another medication. She is unable to recall the name. She was subsequently restarted on ACEI. She notes that other family member are also intolerant to ACEI. Vital signs in the ER showed a temperature 37.5, pulse 136, respiratory rate of 20, blood pressure 169/96 saturating 94% on room air. She had a CTA of chest to rule out pulmonary embolism, which was negative however did show groundglass airspace opacities with diffuse interlobular septal thickening, with increase in size of mediastinal and hilar lymphadenopathy, cardiomegaly and small bilateral pleural effusions. Received Lasix 40mg IV and Levaquin, Vanco, Cefepime given in the ER to also cover for bronchitis versus atypical pneumonia. She was empirically started on azithromycin and ceftriaxone. Which was subsequently switched to vancomycin and Zosyn to cover for sepsis in the setting of possible pneumonia. Influenza A and B PCR is negative. Pertussis DNA negative. HIV negative. Pro-calcitonin 0.06. Blood cultures from 09/09/2017 also negative. Troponin on admission was 0.132, repeat troponin were 0.141, 0.112. TTE done and showed an EF of 35-40% with grade 2 diastolic dysfunction. She was diuresed with Lasix IV twice a day for possible pulmonary edema versus lymphadenopathy. Vital signs within the last 24 hours MAXIMUM TEMPERATURE 36.8, blood pressure 98 /59 to 104/58, pulse 72-110, respiratory rate 18, pulse oximetry 98-99 on 2 L nasal cannula. Her cumulative balance is 3 L positive since admission.However creatinine has been TRENDING from 1.13 on admission to about 3.39 today. Other significant laboratory data calcium 8.3, uric acid 7.8, phosphorus 6.5. Urination has been decreasing as well. Today, lasix has been held as well as MERY inhibitor due to worsening renal function. Renal ultrasound and normal. Repeat chest x-ray cardiomegaly, pulmonary vascular prominence consistent with congestive heart failure. Historian: patient, other Complaint Status: persistent Review of Systems Constitutional: reports: malaise, weakness Eyes: reports: as stated in HPI Cardiovascular: reports: as stated in HPI Respiratory: reports: cough, orthopnea, shortness of breath, GRIMES, PND, denies: stridor, wheezing, sputum production, cyanosis, hemoptysis Gastrointestinal: reports: constipation, nausea, vomiting, denies: diarrhea Genitourinary - Female: reports: no symptoms Musculoskeletal: reports: as stated in HPI Integumentary: reports: as stated in HPI Neurologic: reports: headache Psychiatric: reports: as stated in HPI Endocrine: as stated in HPI Hematologic / Lymphatic: as stated in HPI Allergic / Immunologic: as stated in HPI All Other Symptoms All Other Systems: Reviewed and Negative Past Medical History Past Medical History: She has history of recently diagnosed B cell lymphoma, obstructive sleep apnea, ischemic cardiomyopathy, hyperlipidemia, type 2 diabetes and hypertension. She has history of rheumatic fever. Past Surgical History: Lumbar spinal fusion Port placement Cholecystectomy Tonsillectomy Appendectomy Ovarian duct removal, hysterectomy Drug eluting stent in 2015 Family History Heart disease Father had CAD and cancer Heart and lung disorder in paternal grandfather Stomach cancer in maternal grandmother Severe CAD in father Social History She denies any alcohol use or illicit drug use. She is a lifetime nonsmoker. She previously worked at [employer]. 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 She has a patterson parrot, two guinea pigs and cats and dogs. Hx Tobacco Use In Past Year?: No Smoking Status: Never Smoker Marital status: Occupational Status: employed Allergies Coded Allergies: Adhesives (Verified Allergy, Unknown, RASH, 09/09/17) Current Medications Reported Home Medications Medications Dose Route/Sig Max Daily Dose Days Date Category Dose Instructions Effexor Xr (Venlafaxine Hcl) 37.5 Mg Cap 1 Cap PO DAILY 09/10/17 Reported take with the 150mg to equal 187.5 mg Levemir Flextouch (Insulin Detemir) 100 Unit/Ml Inj 10 HS 09/10/17 Reported Vistaril (Hydroxyzine Pamoate) 25 Mg Cap 1 Cap PO Q6H PRN 09/10/17 Reported Toradol (Ketorolac Tromethamine) 10 Mg Tab 10 Mg PO UD PRN 09/10/17 Reported Lorazepam 0.5 Mg Tab 0.5 Mg PO Q6H PRN 09/10/17 Reported Effexor Xr (Venlafaxine Hcl) 150 Mg Cap 1 Cap PO DAILY 09/10/17 Reported 150mg + 37.5 mg to equal 187.5 daily Desyrel (Trazodone Hcl) 50 Mg Tab 50 Mg PO HS 09/10/17 Reported Coreg (Carvedilol) 25 Mg Tab 1 Tab PO BID 09/10/17 Reported Buspirone Hcl 10 Mg Tab 2 Tab PO BID 09/10/17 Reported Vitamin C (Ascorbic Acid) 500 Mg Tab 500 Mg PO TID 05/05/17 Reported Prinivil (Lisinopril) 5 Mg Tab 5 Mg PO DAILY 05/05/17 Reported Glucophage (Metformin Hcl) 500 Mg Tab 1,000 Mg PO BID 05/05/17 Reported Norvasc (Amlodipine Besylate) 2.5 Mg Tab 2.5 Mg PO DAILY 05/05/17 Reported Mondamin 5MG/325MG (Acetaminophen/Hydrocodone Bitart) Tab 2 Tablet PO Q6 PRN 12/30/16 Reported Ventolin Hfa (Albuterol) 200 Puffs/01078 Mcg Aers 1-2 Puffs INH Q4 PRN 12/30/16 Reported Aspirin 81 (Aspirin) 81 Mg Tab 81 Mg PO DAILY 05/15/15 Reported Clopidogrel (Clopidogrel Bisulfate) 75 Mg Tab 75 Mg PO QAM 04/12/15 Rx Nitrostat (Nitroglycerin) 0.4 Mg Tab 0.4 Mg UT UD PRN 04/11/[address] ONE TAB UNDER THE TOUNGUE EVERY 5 MINUTES NEEDED FOR CHEST PAIN. TAKE NO MORE THAN 3 TABS. IF CHEST PAIN IS NOT RELIEVED BY 3 TABS CALL 911. Tricor (Fenofibrate Micronized) 67 Mg Cap 67 Mg PO DAILY 04/04/15 Reported Glucotrol (Glipizide) 10 Mg Tab 2 Tab PO BID 04/04/15 Reported TAKE BEFORE MEAL Lipitor (Atorvastatin Calcium) 80 Mg Tab 80 Mg PO DAILY 04/04/15 Reported Neurontin (Gabapentin) 300 Mg Cap 300 Mg PO TID 04/04/15 Reported Lasix (Furosemide) 40 Mg Tab 40 Mg PO DAILY 04/16/11 Reported Physical Physical Exam Vital Signs: Date Time Temp Pulse Resp B/P (MAP) Pulse Ox O2 Delivery O2 Flow Rate FiO2 09/12/17 12:50 36.8 72 18 104/58 (73) 98 09/12/17 08:20 36.5 110 18 98/59 (72) 99 09/12/17 04:03 36.7 101 18 100/70 (80) 98 Nasal Cannula 2.0 09/12/17 04:00 Nasal Cannula 2.0 09/12/17 00:00 Nasal Cannula 2.0 09/11/17 23:30 37.6 117 18 82/52 (62) 97 Room Air 09/11/17 20:49 109 88/53 (65) 83/56 (65) 09/11/17 20:00 94 Nasal Cannula 2.0 09/11/17 19:26 86 18 96 Nasal Cannula 2.0 09/11/17 19:12 101 81/50 (60) 09/11/17 19:09 101 81/57 (65) 09/11/17 17:02 37.0 101 18 71/47 (55) 90 Nasal Cannula 2.0 09/11/17 16:00 91 Nasal Cannula 2.0 09/11/17 15:51 37.1 98 16 84/51 (62) 92 Room Air 94/64 (74) General Appearance: WD/WN, NO APPARENT DISTRESS, obese Eyes: PERRLA, EOMI ENT: NORMAL THROAT EXAM (:), other (Short thick neck. Mallampatti III-IV.) Neck: NO TENDERNESS, TRACHEA MIDLINE, NO STRIDOR, SUPPLE, stridor Respiratory: NO RESPIRATORY DISTRESS, NO TENDERNESS, rhonchi (at bases) Cardiovasular: REGULAR RATE/RHYTHM, NORMAL S1S2, systolic murmur, diastolic murmur Abdomen: NON TENDER, NORMAL BOWEL SOUNDS, NO REBOUND Back: NORMAL INSPECTION, NO MIDLINE TENDERNESS, NO CVA TENDERNESS Upper Extremities: NO EDEMA, NO DEFORMITY, NORMAL ROM, other (Cyanosis, no clubbing) Lower Extremities: NO EDEMA, NO DEFORMITY, NORMAL ROM Pulses: dorsalis pedis (R), dorsalis pedis (L) (1+) Neuro: ALERT, ORIENTED x 3, NORMAL MOTOR EXAM, NORMAL SENSATION, NORMAL MEMORY Psychiatric: NORMAL AFFECT, NO SUICIDAL IDEATION, CONTRACTS FOR SAFETY Diagnostics Labs Results Past 24 Hours Test 09/11/17 15:50 09/11/17 17:30 09/11/17 17:31 09/11/17 20:55 Range/Units Bedside Glucose 138 208 70-90 mg/dl HIV (1&2) Ab and P24 Ag, 4th Gener NEG NEG Hemoglobin 8.8 12.0-16.0 g/dL Hematocrit 27.9 37-47 % Test 09/11/17 23:44 09/12/17 03:58 09/12/17 04:45 09/12/17 06:54 Range/Units Bedside Glucose 220 71 98 70-90 mg/dl White Blood Count 12.16 4.8-10.8 K/uL Red Blood Count 2.90 4.2-5.4 M/uL Hemoglobin 8.5 12.0-16.0 g/dL Hematocrit 26.6 37-47 % Mean Corpuscular Volume 91.7 80-100 fL Mean Corpuscular Hemoglobin 29.3 25-34 pg Mean Corpuscular Hemoglobin Concent 32.0 32-36 g/dl Platelet Count 349 130-400 K/uL Mean Platelet Volume 9.5 7.4-10.4 fL Neutrophils (%) (Auto) 74.4 % Lymphocytes (%) (Auto) 12.3 % Monocytes (%) (Auto) 11.3 % Eosinophils (%) (Auto) 1.6 % Basophils (%) (Auto) 0.2 % Neutrophils # (Auto) 9.05 1.4-6.5 K/uL Lymphocytes # (Auto) 1.50 1.2-3.4 K/uL Monocytes # (Auto) 1.37 0.11-0.59 K/uL Eosinophils # (Auto) 0.19 0-0.5 K/uL Basophils # (Auto) 0.03 0-0.2 K/uL RDW Standard Deviation 46.4 36.4-46.3 fL RDW Coefficient of Variation 13.9 11.5-14.5 % Immature Granulocyte % (Auto) 0.2 % Immature Granulocyte # (Auto) 0.02 0.00-0.02 K/uL Red Blood Cell Morphology Unremarkable Sodium Level 134 136-145 mmol/L Potassium Level 4.8 3.5-5.1 mmol/L Chloride Level 104 98-107 mmol/L Carbon Dioxide Level 23 21-32 mmol/L Anion Gap 7.0 3-11 mmol/L Blood Urea Nitrogen 52 7-18 mg/dl Creatinine 3.39 0.60-1.20 mg/dl Est Creatinine Clear Calc Drug Dose 22.2 ml/min Estimated GFR () 16.7 Estimated GFR (Non- 14.4 BUN/Creatinine Ratio 15.3 10-20 Random Glucose 98 70-99 mg/dl Uric Acid 7.8 2.6-7.2 mg/dl Calcium Level 8.3 8.5-10.1 mg/dl Phosphorus Level 6.5 2.5-4.9 mg/dl Magnesium Level 2.2 1.8-2.4 mg/dl Random Vancomycin Level 24.4 mcg/ml Test 09/12/17 11:23 Range/Units Bedside Glucose 227 70-90 mg/dl Diagnostic Radiology CHEST ONE VIEW PORTABLE 09/12/2017 CLINICAL HISTORY: pul.congestion dyspnea COMPARISON STUDY: 09/10/2017 FINDINGS: Cardiomegaly. Central catheter remains this. Vena cava. Components of congestive heart failure are unaltered. Pulmonary vasculature remains prominent. IMPRESSION: Stable radiographic findings of congestive failure Transthoracic echocardiogram 09/11/2017 * -- Conclusions -- * Compared to previous study of 08/28/17: no significant change. * Mildly dilated LV chamber size with mild concentric LVH. * Moderately reduced LV systolic function with moderate global hypokinesis, EF 35-40%. * Grade II diastolic dysfunction. * The right ventricular cavity size is normal (basal dimension <4.2 cm in right ventricular apical 4-chamber view). The right ventricular systolic function is normal as assessed by tricuspid annular plane systolic excursion ( TAPSE) (normal >1.5 cm). * Aortic valve sclerosis mild, without significant aortic valvular stenosis. * Mild mitral regurgitation. * Mild left atrial enlargement. CHEST ONE VIEW PORTABLE 09/10/2017 CLINICAL HISTORY: 57 years-old Female presenting with f/u, cardiomegaly with mild congestive change. TECHNIQUE: Portable upright AP view of the chest was obtained. COMPARISON: 09/09/2017 at 9:16 PM. FINDINGS: Left subclavian Mediport terminates in the mid SVC. Persistent prominence of the cardiac mediastinal silhouette and pulmonary vasculature. Pulmonary vascular indistinctness. Hazy central and bibasilar opacities, left greater than right, slightly increased from prior. Suggestion of trace bilateral pleural effusions. No pneumothorax. Partial visualization of thoracolumbar fusion hardware. Upper abdomen normal. IMPRESSION: 1. Slight interval worsening of pulmonary vascular congestion with developing pulmonary edema and trace bilateral pleural effusions. 2. Cardiomegaly. CHEST CTA for PULMONARY ARTERIES 09/09/2017 CT DOSE: 719.80 mGy.cm HISTORY: Short of breath. TECHNIQUE: Multiaxial CT images of the chest were performed following the intravenous administration of contrast to evaluate the pulmonary arteries. Maximal intensity projection images were also obtained. A dose lowering technique was utilized adhering to the principles of ALARA. COMPARISON STUDY: Chest 09/09/2017. FINDINGS: The heart is mildly enlarged. Retrograde opacification into the hepatic veins. Small bilateral pleural effusions. Normal caliber thoracic aorta with no evidence for dissection. No hepatic or splenic masses. Posterior fusion within the lower thoracic spine. There is axillary, mediastinal, bilateral hilar lymphadenopathy. This is consistent with the patient's history of lymphoma. All of these lymph nodes have increased in size from the recent PET/CT. For comparative purposes the dominant right axillary lymph node measures 3.1 x 2.1 cm. This previously measured 2.4 x 1.2 cm. Left subclavian Port-A-Cath terminates in the SVC. No pneumothorax. The central airways are slightly narrowed due to the hilar lymphadenopathy. Diffuse interlobular septal thickening and mild perihilar groundglass airspace opacities. This likely represents pulmonary edema. No pneumothorax. No filling defects within the pulmonary arteries to suggest pulmonary embolus. IMPRESSION: 1. No evidence for pulmonary embolus. 2. Diffuse interlobular septal thickening with perihilar groundglass airspace opacities, cardiomegaly, and small bilateral pleural effusions. This likely represents pulmonary edema. 3. Progressive lymphadenopathy within the chest consistent with the patient's history of lymphoma. CHEST ONE VIEW PORTABLE 09/09/2017 HISTORY: Short of breath. COMPARISON: Chest 09/01/2017. FINDINGS: No pneumothorax. Trace right pleural effusion. The heart remains mildly enlarged. Diffuse interstitial and vascular thickening suggestive of mild congestive change. Left basilar linear densities favor subsegmental atelectasis. Left subclavian Port-A-Cath terminates at the SVC. Thoracolumbar spinal fusion hardware is noted. IMPRESSION: Cardiomegaly, mild congestive change, and a trace right pleural effusion. PET scan 08/13/2017 Metabolically active lymphadenopathy noted in the bilateral hands a lot, right supraclavicular region, mediastinum, bilateral hilar region, left internal iliac lymph nodes comfort region, left inguinal region. No liver lesion, no spleen lesion, no bone lesion. Impression Assessment and Plan Dyspnea Cough B-cell lymphoma Ischemic cardiomyopathy Acute on chronic renal failure Congestive heart failure Possible pneumonia History of DANGELO Morbid obesity Patient shortness of breath,dyspnea, cough are multifactorial in nature. She has a long-standing history of ischemic cardiomyopathy with congestive heart failure as well as new diagnosis of an enlarging B-cell lymphoma. It appears that lymph nodes are possibly compressing on the parenchyma which can contribute to significant dyspnea as well as cough and worsening vascular pulmonary congestion. 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 She denies any history allergies, other than to adhesives. She has numerous pets and is not effected by seasonal allergies. She denies any post nasal drip, sinusitis, GERD or reflux symptoms. She was on ACEI, which has subsequently been discontinued due to worsening renal function. However has previous intolerance to ACEI with coughing in the past. She's been treated with Lasix and IV antibiotics with minimal improvement of her cough. Cough variant asthma is also on the differential. She does have normal eosinophil levels. Despite this she remains normoxic on room air. Recommendations Continue with supplemental oxygen to maintain SaO2 > 92%. I would continue antibiotics for 5-7 days. She may benefit from codeine to decrease cough intermittently. Continue with bronchodilators, which may provide some symptomatic relief. Continue to hold diuretics per nephrology. Continue to hold ACEI. Cardiology is on board and optimizing cardiac medications. She benefit from PPI and a trial of inhaled corticosteroid like qVAR. She should rinse her mouth after use. CT neck to rule out compression of trachea. Speech and swallow evaluation to rule out aspiration. Send IgE, IgG, IgA, IgM levels. She should have full PFT done as an outpatient. Continue with DVT ppx. Ultimately, I feel the mainstay is for her to receive chemotherapy. Discussed with Dr. Jones.
[2017-09-12] MEDS ORDERED: CODEINE SULFATE 15 MG TAB PO PRN (15:45)
[2017-09-12 17:27] LABS: IMMUNOGLOBULN M 61.6 mg/dL (40-230)
--- NOTE | 2017-09-12 18:35 | Progress Note ---
Internal Med Progress Note Date of Service: Sep 12, 2017. Provider Documentation: SUBJECTIVE: still has cough and bringing out sputum sob is better afebrile no nausea no diarrhea OBJECTIVE: Vital Signs-as noted below Exam: General-alert and oriented. Not in distress ENT-normal hearing Neck-no neck masses Lungs- cta b/l no wheezing bibasilar crackles present Heart-s1 and s2 heard regular rate and rhythm no murmurs Abdomen-soft bowel sounds present no tenderness present no distension Extremities- no erythema no edema Neuro-alert and oriented moves extremities Lab data as noted below. ASSESSMENT & PLAN: Worsening Dyspnea Pulmonary edema on ct scan Acute systolic CHF exacerbation? Has cough Received Lasix 40mg IV and Levaquin, Vanco, Cefepime given in the ER repeat cxr next day slight worsening of pul congestion RECENT ECHO SHOWED ef 37% lasix 40mg iv bid repeat echo shows ef 35-40% cardiology on board renal function worsened with Lasix. Lasix stopped continue to monitor Pneumonia? initially empirically started on rocephin and azithromycin Rocephin stopped and added zosyn and vanco 09/11/17 mrsa swab positive Pulmonary on board ARF after lasix? contrast induced? gentle fluids- close monitor as cxr shows pul congestion cr 3.3 today nephrology consulted f/u labs Elevated troponin mostly NSTEMI from demand ischemia trending down f/u echo- no change from previous echo Elevated WBC Received Levaquin, Cefepime and Vanco has cough empiric abx as above f/u cx DM type 2 Last HBA1C was 8.6 on 06/19 Hyperglycemia pharmacy on board [id number] 11.8 will monitor HTN to hold while BP low At home on amlodipine, coreg, lisinopril will monitor B Cell Lymphoma Plan to start chemo treatment Continue follow with oncology Heme/onco consulted await inputs corey corrales follow ct soft neck for any compressing lymphadenopathy mild elevation of uric acid mostly from dehydration as per nephrology CAD Continue coreg/ asa, plavix and statin Cough B. Pertussis negative Influenza neg abx as above Hycodan prn. DVT px on Lovenox CODE STATUS Ful code DISPOSITION monitor in tele to be determined Vital Signs: Date Time Temp Pulse Resp B/P (MAP) Pulse Ox O2 Delivery O2 Flow Rate FiO2 09/12/17 16:07 36.8 102 18 102/69 (80) 95 09/12/17 15:19 105 24 96 Nasal Cannula 2.0 09/12/17 12:50 36.8 72 18 104/58 (73) 98 09/12/17 08:20 36.5 110 18 98/59 (72) 99 09/12/17 04:03 36.7 101 18 100/70 (80) 98 Nasal Cannula 2.0 09/12/17 04:00 Nasal Cannula 2.0 09/12/17 00:00 Nasal Cannula 2.0 09/11/17 23:30 37.6 117 18 82/52 (62) 97 Room Air 09/11/17 20:49 109 88/53 (65) 83/56 (65) 09/11/17 20:00 94 Nasal Cannula 2.0 09/11/17 19:26 86 18 96 Nasal Cannula 2.0 09/11/17 19:12 101 81/50 (60) 09/11/17 19:09 101 81/57 (65) Lab Results: Results Past 24 Hours Test 09/11/17 20:55 09/11/17 23:44 09/12/17 03:58 09/12/17 04:45 Range/Units Bedside Glucose 208 220 71 70-90 mg/dl White Blood Count 12.16 4.8-10.8 K/uL Red Blood Count 2.90 4.2-5.4 M/uL Hemoglobin 8.5 12.0-16.0 g/dL Hematocrit 26.6 37-47 % Mean Corpuscular Volume 91.7 80-100 fL Mean Corpuscular Hemoglobin 29.3 25-34 pg Mean Corpuscular Hemoglobin Concent 32.0 32-36 g/dl Platelet Count 349 130-400 K/uL Mean Platelet Volume 9.5 7.4-10.4 fL Neutrophils (%) (Auto) 74.4 % Lymphocytes (%) (Auto) 12.3 % Monocytes (%) (Auto) 11.3 % Eosinophils (%) (Auto) 1.6 % Basophils (%) (Auto) 0.2 % Neutrophils # (Auto) 9.05 1.4-6.5 K/uL Lymphocytes # (Auto) 1.50 1.2-3.4 K/uL Monocytes # (Auto) 1.37 0.11-0.59 K/uL Eosinophils # (Auto) 0.19 0-0.5 K/uL Basophils # (Auto) 0.03 0-0.2 K/uL RDW Standard Deviation 46.4 36.4-46.3 fL RDW Coefficient of Variation 13.9 11.5-14.5 % Immature Granulocyte % (Auto) 0.2 % Immature Granulocyte # (Auto) 0.02 0.00-0.02 K/uL Red Blood Cell Morphology Unremarkable Sodium Level 134 136-145 mmol/L Potassium Level 4.8 3.5-5.1 mmol/L Chloride Level 104 98-107 mmol/L Carbon Dioxide Level 23 21-32 mmol/L Anion Gap 7.0 3-11 mmol/L Blood Urea Nitrogen 52 7-18 mg/dl Creatinine 3.39 0.60-1.20 mg/dl Est Creatinine Clear Calc Drug Dose 22.2 ml/min Estimated GFR () 16.7 Estimated GFR (Non- 14.4 BUN/Creatinine Ratio 15.3 10-20 Random Glucose 98 70-99 mg/dl Uric Acid 7.8 2.6-7.2 mg/dl Calcium Level 8.3 8.5-10.1 mg/dl Phosphorus Level 6.5 2.5-4.9 mg/dl Magnesium Level 2.2 1.8-2.4 mg/dl Random Vancomycin Level 24.4 mcg/ml Test 09/12/17 06:54 09/12/17 11:23 09/12/17 16:11 09/12/17 16:36 Range/Units Bedside Glucose 98 227 181 70-90 mg/dl Immunoglobulin G 858.0 700-1600 mg/dL Immunoglobulin A 237.0 70-400 mg/dL Immunoglobulin M 61.6 40-230 mg/dL
--- NOTE | 2017-09-12 18:38 | DIAGNOSTIC IMAGING REPORT ---
SOFT TISSUE NECK WITHOUT HISTORY: 57 years-old Female stridor. Lymphoma acute stridor with history of lymphoma COMPARISON: Chest CT 09/09/2017 TECHNIQUE: Multiple axial CT images of the soft tissues of the neck were obtained without contrast. A dose lowering technique was used consistent with the principals of CRISTINA. FINDINGS: The nasopharynx, oropharynx and hypopharynx are patent. The epiglottis and aryepiglottic folds appear normal. The vallecula and piriform sinuses are maintained. Eaton tonsils are normal in size. No peritonsillar abscess. The glottis and subglottic airway are patent. The parotid, submandibular and sublingual glands are unremarkable. Thyroid is homogeneous. Evaluation for adenopathy is mildly limited without use of IV contrast. No bulky adenopathy about the neck identified. There is a left pectoral [id number] catheter present coursing into the left subclavian vein. Small bilateral pleural effusions are noted. Scattered nonenlarged adenopathy of the upper mediastinum noted. Bilateral interlobular septal thickening of the lung apices suggest pulmonary edema. Imaged intracranial structures demonstrate no acute abnormality. Mastoid air cells are clear. There is hypoplasia of the frontal sinuses. Mild mucosal thickening of the ethmoid air cells. Mild multilevel degenerative changes of the spine. Moderate intervertebral disc space narrowing at C5-C6 and C6-C7. IMPRESSION: 1. No acute abnormality identified within the neck. No peritonsillar abscess or bulky adenopathy identified. 2. Small bilateral pleural effusions with interlobular septal thickening of the lung apices suggests pulmonary edema, better evaluated on comparison chest CT 09/09/2017. 3. Moderate intervertebral disc space narrowing at C5-C6 and C6-C7. The above report was generated using voice recognition software. It may contain grammatical, syntax or spelling errors. Electronically signed by: Demetrio Gaines M.D. 09/12/2017 6:37 PM Dictated Date/Time: 09/12/2017 6:29 PM
[2017-09-12] MEDS ORDERED: NURSING VERBAL MED ORDER ONE (19:00)
[2017-09-12] MEDS: AZITHROMYCIN 250 MG TAB PO SCH (19:23)
[2017-09-12] MEDS: HYDROCODONE/ACETAMOPHEN 5/325MG TAB PO PRN (19:26)
--- NOTE | 2017-09-12 20:15 | Medical Consult ---
Consultation Date of Consultation: Sep 12, 2017. Attending Physician: Terry Jones MD History of Present Illness Hematology/Oncology consult: Evaluation management of diffuse large B-cell lymphoma. Date of consultation: 09/12/2017 Consult requested by HPI: 57-year-old the female, a case of diffuse large B-cell lymphoma diagnosed recently, also has abnormal cardiac function test, we have not started chemotherapy in her case as of now, planning to start combination of Rituxan, cyclophosphamide, etoposide, vincristine and prednisone chemotherapy soon, underwent port placement without any complications, now admitted at [facility] for increasing shortness of breath and coughing for the 2 weeks duration, she had CT scan of chest with PE protocol, serum creatinine level was 1.1 on admission, now after contrast continue to increased to around 3.3, she is receiving IV antibiotic in the form of Zosyn and vancomycin for possible pneumonia. I saw her at bedside, she complains of shortness of breath, had leg edema which has improved, no fever at present, blood pressure has remained slightly on the lower side, no nausea or vomiting, cough with scanty white expectant present, no hemoptysis. Diagnostic workup of diffuse large B-cell lymphoma: She says that earlier in Mar, 2017 she noticed to have some stiffness in the neck and some fullness in the right side of the neck, she was seen at [facility] ER, had imaging studies which showed some enlarged lymph node in the right side cervical lesion level 4. ~Further workup as follows. ~She did not have any other symptoms, no fever, no night sweats. ~No increasing nausea or vomiting. ~No weight loss. ~ Imaging studies: ~ Ultrasound of the abdomen done on 10/03/2016 showed fatty liver. ~ -ultrasound-guided FNA done on 05/22/2017 showed 2.7 x 1.9 x 1.7 cm right supraclavicular mass, FNA was nondiagnostic. ~ -CT scan of the neck done on 06/10/2017 showed at least 2 pathologically appearing right level 4 lymph node measuring 1.6 x 1.7 cm and 1.2 x 1.7 cm. ~No other pathologically enlarged lymph nodes or other findings noted. ~ -CT scan of the neck done without intravenous contrast on 03/10/2016 at [facility] showed enlarged right level 4 cervical lymph node measuring 2.7 x 2.4 cm. ~ -Chest x-ray done on 04/30/2017--> no acute findings noted. ~ -CT scan of the head and cervical spine without intravenous contrast on 2016--> no acute intracranial process noted, no acute fracture noted. ~ Ultrasound and CT-guided a right supraclavicular lymph comfort biopsy done on 07/01--> ill-defined right supraclavicular lymph node adjacent to the common carotid artery noted, core needle biopsy done. ~ Pathology: -FNA from the right level 4 lymph node done on 05/15/2017 and 05/28/2017--> nondiagnostic. -Core needle biopsy of the right supraclavicular lymph node-->~mg B-cell lymphoma, favoring large B-cell lymphoma. ~No additional workup would be possible because of lack of diagnostic material.~~(07/01/2017) -Right axillary lymph node FNA (09/04/2017)--> Tamika lymphoma, consistent with a diffuse large B-cell lymphoma or grade 3 follicular lymphoma. Positive for t(14: 18)/BCL2 rearrangement typical of follicular center cell lymphomas and diffuse large B-cell lymphoma. No evidence of BCL6 or MYC gene rearrangement. Thus, this does not represent a double hit or triple hit lymphoma. -PET-CT scan~done on 08/13/2017 at [facility] showed metabolically active lymphadenopathy noted in the bilateral axilla, right supraclavicular region, mediastinum, bilateral hilar region, left internal iliac lymph comfort region, left inguinal region no liver lesion, no spleen lesion , no bone lesions noted. REVIEW OF SYSTEMS: She feels weak and tired, has no fever, no chills, no skin rash, leg edema has improved, no new increasing headache, mild dizziness present , mild constipation present, shortness of breath and cough with scanty white expectant present, some nausea present, denies any bleeding from any sites, she denies hematuria, decreasing urine output noted, Past medical and surgical history: - Diabetes mellitus, she is on oral hypoglycemic agent. ~Diabetes is not very well under control. -Coronary disease, she had stent placement few years back, has ischemic cardiomyopathy, ejection fraction around 40-45%. -Chronic back pain, she had some back surgery in the past, has some numbness involving the left lower extremity, also some tingling and numbness of the extremities, she takes Neurontin for the symptomatic treatment, takes Vicodin for the back pain. -Hyperlipidemia -Obesity -obsessive-compulsive disorder. Social history: Nonsmoker, denies any ETOH abuse. Family history: Not significant Medications: Please review her chart for detailed list of medications. Allergies: None On exam: - Alert and oriented x3, well built woman, not in any distress. - HEENT: no icterus, no pallor, Throat: Normal. - Neck: No palpable cervical lymphadenopathy. - Abdomen: soft, nontender, no hepatomegaly, no splenomegaly. - No focal neuro deficit. - Extremities: no finger clubbing, mild leg edema, mainly on the left side noted. Lab: Blood workup done on 09/09/2017 - WBC 13,800, H&H of , Platelet count of 324,000. -BUN/Creat: 25/1.1, normal liver function test. -troponin 0.132, Pro-BNP--> 2648 Blood workup done on 09/12/2017: -BUN/Creat: 52/3.3, calcium 8.3 Influenza A and B--> negative. -HIV negative -B Pertussis --> negative -uric acid--> 7.8 Imaging: -CT scan of the chest done with PE protocol on 09/09/2017 I wrote no evidence of pulmonary embolism. Diffuse interlobular septal thickening with perihilar groundglass airspace opacities, cardiomegaly, and small bilateral pleural effusions. This likely represents pulmonary edema, enlargement of the axillary, mediastinal bilateral hilar lymphadenopathy noted. Dominant right axillary lymph node measuring 3.1 x 2.1 cm. Left subclavian port present. Central LA slightly narrowed because of hilar lymphadenopathy. -ultrasound of the kidney done on 09/12/2017--> normal findings. Normal size kidney noted. No hydronephrosis -CT scan of the neck done without intravenous contrast on 09/12/2017 showed no acute abnormalities noted, no infections noted, no enlarged lymph nodes noted, small bilateral pleural effusion noted. Moderate DJD noted in the C-spine. Echocardiogram done on 09/11/2017 showed left ventricular ejection fraction 35-40 %. Grade 2 diastolic dysfunction noted. Mild aortic wall sclerosis noted, no significant aortic stenosis noted. Mild mitral regurgitation noted. ASSESSMENT AND PLAN: 57-year-old female, a case of diffuse large B-cell lymphoma, at least stage III disease, earlier she declined for bone marrow evaluation, has underlying ischemic cardiomyopathy, ejection fraction around 35- 40 worsened, Adriamycin is contraindicated in her case, plan for systemic chemotherapy for lymphoma diagnosis soon, port placement done without any complications, now admitted Hospital for increasing shortness of breath, coughing, receiving broad-spectrum antibiotic with Zosyn and vancomycin for possible pneumonia, underwent CT scan of chest with PE protocol, no evidence of pulmonary embolism noted but now has worsening kidney function test following intravenous contrast study, slight further enlargement of the lymph nodes noted in the recent imaging study. Will plan for following chemotherapy combination in her case for the lymphoma diagnosis: - Rituxan, cyclophosphamide, etoposide, vincristine and prednisone. I reviewed with her regarding chemotherapy treatment in her case, she is at high risk for tumor lysis, I would like to wait for her kidney function test to improve before we proceed for systemic chemotherapy in her case. Will follow up. Thanks for the consultation. Dr. Ranjan Dobbs Hem/Onc (This note was completed using the dictation program Fluency Direct. As such, there may be misspellings, word substitutions, or other variations that should not change the essence of the clinical content of this encounter note. If there is need for further clarification, please direct questions to the provider listed above.) Past Medical/Surgical History Medical Problems: (1) Acute bronchitis Status: Acute (2) Acute chest pain Status: Acute (3) Anemia Status: Acute (4) Enlarged lymph node Status: Acute (5) Hypoxia Status: Acute (6) Neck pain on right side Status: Acute (7) Pulmonary edema Status: Acute Family History Heart disease Social History Smoking Status: Never Smoker Drug Use: none Marital Status: Housing Status: lives with family Occupation Status: employed Allergies Coded Allergies: Adhesives (Verified Allergy, Unknown, RASH, 09/09/17) Current Inpatient Medications Current Inpatient Medications Medications (Trade) Dose Ordered Sig/Chantale Route Start Time Stop Time Status Last Admin Dose Admin Ioversol (Optiray 320) 100 ml UD PRN IV 09/09/17 22:00 09/13/17 21:59 Ondansetron HCl (Zofran Inj) 4 mg Q6H PRN IV 09/10/17 00:00 10/10/17 00:00 09/10/17 16:37 4 MG Amlodipine Besylate (Norvasc Tab) 2.5 mg DAILY PO 09/10/17 09:00 10/10/17 08:59 09/12/17 08:10 2.5 MG Aspirin (Ecotrin Tab) 81 mg DAILY PO 09/10/17 09:00 10/10/17 08:59 09/12/17 08:16 81 MG Atorvastatin Calcium (Lipitor Tab) 80 mg DAILY PO 09/10/17 09:00 10/10/17 08:59 09/12/17 08:13 80 MG Carvedilol (Coreg Tab) 25 mg BID PO 09/10/17 09:00 10/10/17 08:59 09/12/17 08:11 25 MG Clopidogrel Bisulfate (plAVix TAB) 75 mg QAM PO 09/10/17 09:00 10/10/17 08:59 09/12/17 08:12 75 MG Gabapentin (Neurontin Cap) 300 mg TID PO 09/10/17 09:00 10/10/17 08:59 09/12/17 15:06 300 MG Acetaminophen/ Hydrocodone Bitart ([place] 5/325 Tab) 1 tab Q6 PRN PO 09/10/17 00:15 09/24/17 00:14 09/12/17 19:26 1 TAB Lisinopril (Zestril Tab) 5 mg DAILY PO 09/10/17 09:00 10/10/17 08:59 Future Hold 09/10/17 09:21 5 MG Lorazepam (Ativan Tab) 0.5 mg Q6H PRN PO 09/10/17 00:15 10/10/17 00:14 Trazodone HCl (Desyrel Tab) 50 mg HS PO 09/10/17 21:00 10/10/17 20:59 09/11/17 22:07 50 MG Venlafaxine HCl (effeXOR EXTENDED REL CAP) 150 mg DAILY PO 09/10/17 09:00 10/10/17 08:59 09/12/17 08:12 150 MG Buspirone HCl (Buspar Tab) 20 mg BID PO 09/10/17 09:00 10/10/17 08:59 09/12/17 08:11 20 MG Venlafaxine HCl (effeXOR EXTENDED REL CAP) 37.5 mg DAILY PO 09/10/17 09:00 10/10/17 08:59 09/12/17 08:12 37.5 MG Benzonatate (Tessalon Perles Cap) 100 mg Q6 PRN PO 09/10/17 01:00 10/10/17 00:59 Insulin Aspart (novoLOG ASPART) SLIDING SCALE If C... ACHS SC 09/10/17 03:45 10/10/17 03:44 Future hold 09/12/17 18:14 6 UNITS Glucose (Glucose 40% Gel) 15-30 GRAMS 15 GRAMS... UD PRN PO 09/10/17 01:45 10/10/17 01:44 Glucose (Glucose Chew Tab) 4-8 Tablets 4 Tabl... UD PRN PO 09/10/17 01:45 10/10/17 01:44 Dextrose (Dextrose 50% 50ML Syringe) 25-50ML OF 50% DW IV FOR... UD PRN IV 09/10/17 01:45 10/10/17 01:44 Glucagon (Glucagon Inj) 1 mg UD PRN SQ 09/10/17 01:45 10/10/17 01:44 Miscellaneous Information (Consult Glycemic Management Pharmacy) 1 ea UD PRN N/A 09/10/17 06:34 10/10/17 06:33 Ipratropium [place] (Atrovent 0.02% 0.5MG/2.5ML Neb) 0.5 mg Q4H PRN INH 09/10/17 06:30 10/10/17 06:29 09/12/17 15:19 0.5 MG Levalbuterol (Xopenex 0.63 Mg/ 3 Ml Neb) 0.63 mg Q4H PRN INH 09/10/17 06:30 10/10/17 06:29 09/12/17 15:19 0.63 MG Hydrocodone Bit/ Homatropine Methylb (Hycodan Syrup) 5 ml Q6 PRN PO 09/10/17 13:15 09/24/17 13:14 09/11/17 08:40 5 ML Fenofibrate 67 mg DAILY PO 09/11/17 09:00 10/11/17 08:59 09/12/17 08:13 67 MG Furosemide 40 mg/ Syringe 4 ml @ 4 mls/min BID IV 09/10/17 21:00 10/10/17 20:59 Future Hold Azithromycin (Zithromax Tab) 500 mg Q24H PO 09/10/17 18:45 09/17/17 18:29 09/12/17 19:23 500 MG Heparin Sodium (Porcine) (Heparin 100 Unit/ml 5ml Flush) 5 ml PRN PRN IV 09/11/17 01:15 10/11/17 01:14 09/12/17 20:06 5 ML Hydromorphone HCl (Dilaudid Inj) 0.5 mg Q4 PRN IV 09/11/17 14:00 09/25/17 13:59 09/12/17 15:05 0.5 MG Heparin Sodium (Porcine) (Heparin Sq 5000 Unit/0.5ml) 5,000 unit Q8 SC 09/12/17 06:00 10/12/17 05:59 09/12/17 15:13 5,000 UNIT Vancomycin HCl (Consult) 1 ea UD PRN N/A 09/11/17 18:30 10/11/17 18:29 Piperacillin Sod/ Tazobactam Sod (Consult) 1 ea UD PRN N/A 09/11/17 18:30 10/11/17 18:29 Piperacillin Sod/ Tazobactam Sod 4.5 gm/Dextrose 120 ml @ 30 mls/hr Q12H IV 09/12/17 02:00 09/19/17 01:59 09/12/17 15:05 30 MLS/HR Mupirocin (Bactroban 2% Oint) 1 appln BID EXT 09/12/17 09:00 09/17/17 08:59 Insulin Detemir (Levemir Flexpen/ FlexTouch) 15 units BID SQ 09/12/17 21:00 10/12/17 20:59 Beclomethasone Dipropionate (Qvar 80 Mcg Hfa Inhaler) 1 puffs BID INH 09/12/17 21:00 10/12/17 20:59 Pantoprazole Sodium (Protonix Tab) 40 mg QAM PO 09/13/17 09:00 10/13/17 08:59 Physical Exam Date Time Temp Pulse Resp B/P (MAP) Pulse Ox O2 Delivery O2 Flow Rate FiO2 09/12/17 19:12 114 99 35 09/12/17 16:07 36.8 102 18 102/69 (80) 95 09/12/17 16:05 Nasal Cannula 2.0 09/12/17 15:19 105 24 96 Nasal Cannula 2.0 09/12/17 12:50 36.8 72 18 104/58 (73) 98 09/12/17 12:05 Nasal Cannula 2.0 09/12/17 08:20 36.5 110 18 98/59 (72) 99 09/12/17 08:00 Nasal Cannula 2.0 09/12/17 04:03 36.7 101 18 100/70 (80) 98 Nasal Cannula 2.0 09/12/17 04:00 Nasal Cannula 2.0 09/12/17 00:00 Nasal Cannula 2.0 09/11/17 23:30 37.6 117 18 82/52 (62) 97 Room Air 09/11/17 20:49 109 88/53 (65) 83/56 (65) Laboratory Results Last 24 Hours Test 09/11/17 20:55 09/11/17 23:44 09/12/17 03:58 09/12/17 04:45 Bedside Glucose 208 mg/dl 220 mg/dl 71 mg/dl White Blood Count 12.16 K/uL Red Blood Count 2.90 M/uL Hemoglobin 8.5 g/dL Hematocrit 26.6 % Mean Corpuscular Volume 91.7 fL Mean Corpuscular Hemoglobin 29.3 pg Mean Corpuscular Hemoglobin Concent 32.0 g/dl Platelet Count 349 K/uL Mean Platelet Volume 9.5 fL Neutrophils (%) (Auto) 74.4 % Lymphocytes (%) (Auto) 12.3 % Monocytes (%) (Auto) 11.3 % Eosinophils (%) (Auto) 1.6 % Basophils (%) (Auto) 0.2 % Neutrophils # (Auto) 9.05 K/uL Lymphocytes # (Auto) 1.50 K/uL Monocytes # (Auto) 1.37 K/uL Eosinophils # (Auto) 0.19 K/uL Basophils # (Auto) 0.03 K/uL RDW Standard Deviation 46.4 fL RDW Coefficient of Variation 13.9 % Immature Granulocyte % (Auto) 0.2 % Immature Granulocyte # (Auto) 0.02 K/uL Red Blood Cell Morphology Unremarkable Sodium Level 134 mmol/L Potassium Level 4.8 mmol/L Chloride Level 104 mmol/L Carbon Dioxide Level 23 mmol/L Anion Gap 7.0 mmol/L Blood Urea Nitrogen 52 mg/dl Creatinine 3.39 mg/dl Est Creatinine Clear Calc Drug Dose 22.2 ml/min Estimated GFR () 16.7 Estimated GFR (Non- 14.4 BUN/Creatinine Ratio 15.3 Random Glucose 98 mg/dl Uric Acid 7.8 mg/dl Calcium Level 8.3 mg/dl Phosphorus Level 6.5 mg/dl Magnesium Level 2.2 mg/dl Random Vancomycin Level 24.4 mcg/ml Test 09/12/17 06:54 09/12/17 11:23 09/12/17 16:11 09/12/17 16:36 Bedside Glucose 98 mg/dl 227 mg/dl 181 mg/dl Immunoglobulin G 858.0 mg/dL Immunoglobulin A 237.0 mg/dL Immunoglobulin M 61.6 mg/dL
[2017-09-12] MEDS: TRAZODONE HCL 50 MG TAB PO SCH (21:34)
[2017-09-12] MEDS: BECLOMETHASONE DIP HFA 80 MCG 8.7G INH INH SCH (21:34)
[2017-09-12 22:07] LABS: URINE APPEARANCE CLEAR (CLEAR); URINE BILIRUBIN NEG (NEG); URINE COLOR YELLOW; URINE EPITHELIAL CELL AUTO >30 /lpf (0-5); URINE NITRITE NEG (NEG); URINE SPECIFIC GRAVITY 1.024 (1.000-1.030); UROBILINOGEN NEG (NEG)
[2017-09-12 22:08] LABS: MANUAL MICROSCOPIC REQUIRED? NO; REVIEW REQ? YES
[2017-09-13] VITALS (15 sets, daily range): BP systolic 92–152; BP diastolic 57–87; PULSE 94–108; TEMP 36.4–37.1; O2SAT 91–100
[2017-09-13] MEDS: PIPERACILL/TAZOBAC IV 4.5 GM in DEXTROSE 5% 100ML IV SCH ×2 (02:04→13:39)
[2017-09-13] MEDS: HEPARIN SOD 5000 UNIT/0.5 ML CARP SC SCH ×3 (06:02→22:07)
[2017-09-13 06:40] LABS: BASO % 0.2 %; BASO ABS # 0.02 K/uL (0-0.2); EOS % 1.7 %; HEMATOCRIT 25.9 % (37-47); IG% 0.1 %; LYMPH % 14.5 %; LYMPH ABS # 1.22 K/uL (1.2-3.4); MEAN CELL VOLUME 90.2 fL (80-100); MEAN CORPUSCULAR HEMOGLOBIN 28.6 pg (25-34); MEAN CORPUSCULAR HGB CONC 31.7 g/dl (32-36); MEAN PLATELET VOLUME 9.2 fL (7.4-10.4); MONO % 8.4 %; NEUT % 75.1 %; PLATELET COUNT 353 K/uL (130-400); RED BLOOD COUNT 2.87 M/uL (4.2-5.4); WHITE BLOOD COUNT 8.43 K/uL (4.8-10.8)
[2017-09-13 07:15] LABS: BUN/CREATININE RATIO 22.5 (10-20); CALCIUM 8.6 mg/dl (8.5-10.1); CREATININE 2.8 mg/dl (0.60-1.20); MAGNESIUM 2.5 mg/dl (1.8-2.4); POTASSIUM 4.8 mmol/L (3.5-5.1)
[2017-09-13 07:25] LABS: COMPLETE YES
[2017-09-13 07:26] LABS: THYROID STIMULATING HORMONE 2.07 uIu/ml (0.300-4.500)
--- NOTE | 2017-09-13 07:46 | Nephrology Progress Note ---
Nephrology Progress Note Date of Service: Sep 13, 2017. Subjective 57 yo female with large b cell lymphoma who has not begun treatment, had worsening sob and cough, underwent cta with contrast and developed lilibeth. creatinine has peaked and started to improve. renal us is normal. urine sodium of 10 suggestive of contrast induced nephrotoxicity. pt on side of bed eating breakfast, continues to have cough. Objective Date Time Temp Pulse Resp B/P (MAP) Pulse Ox O2 Delivery O2 Flow Rate FiO2 09/13/17 07:02 96 98 35 09/13/17 04:00 BiPAP 35 09/13/17 04:00 36.5 99 22 107/72 (84) 100 BiPAP 35 09/13/17 00:00 BiPAP 35 09/13/17 00:00 36.4 96 20 117/72 (87) 99 BiPAP 35 09/12/17 23:37 96 98 35 09/12/17 21:35 104 115/63 (80) 98 BiPAP 35 09/12/17 20:17 36.5 108 18 97/55 (69) 98 BiPAP 09/12/17 20:00 BiPAP 35 09/12/17 19:12 114 99 35 09/12/17 16:07 36.8 102 18 102/69 (80) 95 09/12/17 16:05 Nasal Cannula 2.0 09/12/17 15:19 105 24 96 Nasal Cannula 2.0 09/12/17 12:50 36.8 72 18 104/58 (73) 98 09/12/17 12:05 Nasal Cannula 2.0 09/12/17 08:20 36.5 110 18 98/59 (72) 99 09/12/17 08:00 Nasal Cannula 2.0 Physical Exam: General-aaox3 Eyes-no scleral icterus ENT-mmm Neck-supple Lungs-+wheeze Heart-rrr Abdomen-bs+ s/nt/nd Extremities-no c/c/e Neuro-nonfocal Current Inpatient Medications Medications (Trade) Dose Ordered Sig/Chantale Route Start Time Stop Time Status Last Admin Dose Admin Ioversol (Optiray 320) 100 ml UD PRN IV 09/09/17 22:00 09/13/17 21:59 Ondansetron HCl (Zofran Inj) 4 mg Q6H PRN IV 09/10/17 00:00 10/10/17 00:00 09/10/17 16:37 4 MG Amlodipine Besylate (Norvasc Tab) 2.5 mg DAILY PO 09/10/17 09:00 10/10/17 08:59 09/12/17 08:10 2.5 MG Aspirin (Ecotrin Tab) 81 mg DAILY PO 09/10/17 09:00 10/10/17 08:59 09/12/17 08:16 81 MG Atorvastatin Calcium (Lipitor Tab) 80 mg DAILY PO 09/10/17 09:00 10/10/17 08:59 09/12/17 08:13 80 MG Carvedilol (Coreg Tab) 25 mg BID PO 09/10/17 09:00 10/10/17 08:59 09/12/17 21:35 25 MG Clopidogrel Bisulfate (plAVix TAB) 75 mg QAM PO 09/10/17 09:00 10/10/17 08:59 09/12/17 08:12 75 MG Gabapentin (Neurontin Cap) 300 mg TID PO 09/10/17 09:00 10/10/17 08:59 09/12/17 21:35 300 MG Acetaminophen/ Hydrocodone Bitart ([place] 5/325 Tab) 1 tab Q6 PRN PO 09/10/17 00:15 09/24/17 00:14 09/12/17 19:26 1 TAB Lisinopril (Zestril Tab) 5 mg DAILY PO 09/10/17 09:00 10/10/17 08:59 Future Hold 09/10/17 09:21 5 MG Lorazepam (Ativan Tab) 0.5 mg Q6H PRN PO 09/10/17 00:15 10/10/17 00:14 Trazodone HCl (Desyrel Tab) 50 mg HS PO 09/10/17 21:00 10/10/17 20:59 09/12/17 21:34 50 MG Venlafaxine HCl (effeXOR EXTENDED REL CAP) 150 mg DAILY PO 09/10/17 09:00 10/10/17 08:59 09/12/17 08:12 150 MG Buspirone HCl (Buspar Tab) 20 mg BID PO 09/10/17 09:00 10/10/17 08:59 09/12/17 21:34 20 MG Venlafaxine HCl (effeXOR EXTENDED REL CAP) 37.5 mg DAILY PO 09/10/17 09:00 10/10/17 08:59 09/12/17 08:12 37.5 MG Benzonatate (Tessalon Perles Cap) 100 mg Q6 PRN PO 09/10/17 01:00 10/10/17 00:59 Insulin Aspart (novoLOG ASPART) SLIDING SCALE If C... ACHS SC 09/10/17 03:45 10/10/17 03:44 Future hold 09/12/17 21:41 2 UNITS Glucose (Glucose 40% Gel) 15-30 GRAMS 15 GRAMS... UD PRN PO 09/10/17 01:45 10/10/17 01:44 Glucose (Glucose Chew Tab) 4-8 Tablets 4 Tabl... UD PRN PO 09/10/17 01:45 10/10/17 01:44 Dextrose (Dextrose 50% 50ML Syringe) 25-50ML OF 50% DW IV FOR... UD PRN IV 09/10/17 01:45 10/10/17 01:44 Glucagon (Glucagon Inj) 1 mg UD PRN SQ 09/10/17 01:45 10/10/17 01:44 Miscellaneous Information (Consult Glycemic Management Pharmacy) 1 ea UD PRN N/A 09/10/17 06:34 10/10/17 06:33 Ipratropium [place] (Atrovent 0.02% 0.5MG/2.5ML Neb) 0.5 mg Q4H PRN INH 09/10/17 06:30 10/10/17 06:29 09/12/17 15:19 0.5 MG Levalbuterol (Xopenex 0.63 Mg/ 3 Ml Neb) 0.63 mg Q4H PRN INH 09/10/17 06:30 10/10/17 06:29 09/12/17 15:19 0.63 MG Hydrocodone Bit/ Homatropine Methylb (Hycodan Syrup) 5 ml Q6 PRN PO 09/10/17 13:15 09/24/17 13:14 09/11/17 08:40 5 ML Fenofibrate 67 mg DAILY PO 09/11/17 09:00 10/11/17 08:59 09/12/17 08:13 67 MG Furosemide 40 mg/ Syringe 4 ml @ 4 mls/min BID IV 09/10/17 21:00 10/10/17 20:59 Future Hold Azithromycin (Zithromax Tab) 500 mg Q24H PO 09/10/17 18:45 09/17/17 18:29 09/12/17 19:23 500 MG Heparin Sodium (Porcine) (Heparin 100 Unit/ml 5ml Flush) 5 ml PRN PRN IV 09/11/17 01:15 10/11/17 01:14 09/13/17 06:20 5 ML Hydromorphone HCl (Dilaudid Inj) 0.5 mg Q4 PRN IV 09/11/17 14:00 09/25/17 13:59 09/12/17 15:05 0.5 MG Heparin Sodium (Porcine) (Heparin Sq 5000 Unit/0.5ml) 5,000 unit Q8 SC 09/12/17 06:00 10/12/17 05:59 09/13/17 06:02 5,000 UNIT Vancomycin HCl (Consult) 1 ea UD PRN N/A 09/11/17 18:30 10/11/17 18:29 Piperacillin Sod/ Tazobactam Sod (Consult) 1 ea UD PRN N/A 09/11/17 18:30 10/11/17 18:29 Piperacillin Sod/ Tazobactam Sod 4.5 gm/Dextrose 120 ml @ 30 mls/hr Q12H IV 09/12/17 02:00 09/19/17 01:59 09/13/17 02:04 30 MLS/HR Mupirocin (Bactroban 2% Oint) 1 appln BID EXT 09/12/17 09:00 09/17/17 08:59 Insulin Detemir (Levemir Flexpen/ FlexTouch) 15 units BID SQ 09/12/17 21:00 10/12/17 20:59 09/12/17 21:41 15 UNITS Beclomethasone Dipropionate (Qvar 80 Mcg Hfa Inhaler) 1 puffs BID INH 09/12/17 21:00 10/12/17 20:59 09/12/17 21:34 1 PUFFS Pantoprazole Sodium (Protonix Tab) 40 mg QAM PO 09/13/17 09:00 10/13/17 08:59 Last 24 Hours Test 09/12/17 11:23 09/12/17 16:11 09/12/17 16:36 09/12/17 20:24 Bedside Glucose 227 mg/dl 181 mg/dl 168 mg/dl Immunoglobulin G 858.0 mg/dL Immunoglobulin A 237.0 mg/dL Immunoglobulin M 61.6 mg/dL Test 09/12/17 21:55 09/13/17 06:14 Urine Color YELLOW Urine Appearance CLEAR Urine pH 5.0 Urine Specific [place] 1.024 Urine Protein NEG Urine Glucose (UA) NEG Urine Ketones NEG Urine Occult Blood NEG Urine Nitrite NEG Urine Bilirubin NEG Urine Urobilinogen NEG Urine Leukocyte Esterase MODERATE Urine WBC (Auto) 10-30 /hpf Urine RBC (Auto) 0-4 /hpf Urine Hyaline Casts (Auto) 1-5 /lpf Urine Epithelial Cells (Auto) >30 /lpf Urine Bacteria (Auto) NEG Urine Pathogenic Casts /lpf Urine Random Sodium 10 mEq/L White Blood Count 8.43 K/uL Red Blood Count 2.87 M/uL Hemoglobin 8.2 g/dL Hematocrit 25.9 % Mean Corpuscular Volume 90.2 fL Mean Corpuscular Hemoglobin 28.6 pg Mean Corpuscular Hemoglobin Concent 31.7 g/dl Platelet Count 353 K/uL Mean Platelet Volume 9.2 fL Neutrophils (%) (Auto) 75.1 % Lymphocytes (%) (Auto) 14.5 % Monocytes (%) (Auto) 8.4 % Eosinophils (%) (Auto) 1.7 % Basophils (%) (Auto) 0.2 % Neutrophils # (Auto) 6.33 K/uL Lymphocytes # (Auto) 1.22 K/uL Monocytes # (Auto) 0.71 K/uL Eosinophils # (Auto) 0.14 K/uL Basophils # (Auto) 0.02 K/uL RDW Standard Deviation 44.9 fL RDW Coefficient of Variation 13.7 % Immature Granulocyte % (Auto) 0.1 % Immature Granulocyte # (Auto) 0.01 K/uL Sodium Level 136 mmol/L Potassium Level 4.8 mmol/L Chloride Level 105 mmol/L Carbon Dioxide Level 21 mmol/L Anion Gap 10.0 mmol/L Blood Urea Nitrogen 63 mg/dl Creatinine 2.80 mg/dl Est Creatinine Clear Calc Drug Dose 28.3 ml/min Estimated GFR () 21.0 Estimated GFR (Non- 18.1 BUN/Creatinine Ratio 22.5 Random Glucose 122 mg/dl Calcium Level 8.6 mg/dl Magnesium Level 2.5 mg/dl Thyroid Stimulating Hormone (TSH) 2.070 uIu/ml Random Vancomycin Level 13.3 mcg/ml Date/Time Source Procedure Growth Status 09/12/17 21:55 Sputum Expectorated Sputum Gram Stain Pending Received 09/12/17 21:55 Sputum Expectorated Sputum Sputum Culture Pending Received Assessment & Plan [id number] with normal renal us in setting of lasix and contrast. did not develop atn. appears to be contrast induced nephrotoxicity with urine sodium of 10. creatinine has peaked and trending down. iv fluids were stopped. trying to balance her pulmonary congestion and lilibeth. needs lasix for her pulmonary congestion and needs fluids for her renal injury. given low rate yesterday and ok to hold the fluids today and follow creatinine numbers.
[2017-09-13] MEDS: AMLODIPINE BESYLATE 5 MG TAB PO SCH (07:48)
[2017-09-13] MEDS: VENLAFAXINE HCL XR 37.5 MG CAPXR PO SCH (07:49)
[2017-09-13] MEDS: PANTOprazole SOD 40 MG TAB PO SCH (07:49)
[2017-09-13] MEDS: VENLAFAXINE HCL XR 150 MG CAPXR PO SCH (07:50)
[2017-09-13] MEDS: CARVEDILOL 25 MG TAB PO SCH ×3 (07:50→20:45)
[2017-09-13] MEDS: ASPIRIN 81 MG ECTAB PO SCH (07:52)
[2017-09-13] MEDS: ATORVASTATIN 40 MG TAB PO SCH (07:52)
[2017-09-13] MEDS: GABAPENTIN 300 MG CAP PO SCH ×3 (07:52→20:39)
[2017-09-13] MEDS: CLOPIDOGREL BISULFATE 75 MG TAB PO SCH (07:52)
[2017-09-13] MEDS: FENOFIBRATE MICRONIZED 67 MG PO SCH (07:54)
[2017-09-13] MEDS: MUPIROCIN 2% OINT 22 GM TUBE EXT SCH ×2 (07:55→20:41)
[2017-09-13] MEDS: BECLOMETHASONE DIP HFA 80 MCG 8.7G INH INH SCH ×2 (07:55→20:38)
[2017-09-13] MEDS: INSULIN ASPART 100 UNITS/ML 3 ML PEN SC SCH ×4 (08:01→21:00)
[2017-09-13] MEDS: INSULIN DETEMIR FLEXPEN/FLEX TOUCH 100 UNITS/ML 3ML SQ SCH ×2 (08:02→21:14)
[2017-09-13] MEDS: HYDROCODONE/HOMATROPINE SYRUP 5MG/1.5MG 5ML UDP PO PRN (08:10)
[2017-09-13] MEDS ORDERED: VANCOMYCIN INJ 1,750 MG in SODIUM CHLORIDE 0.9% 500ML 500 ML IV SCH (08:30)
[2017-09-13] MEDS: HYDROmorphone INJ 0.5 MG/0.5 ML SYR IV PRN ×3 (09:59→20:38)
--- NOTE | 2017-09-13 10:44 | Cardiology Follow-Up ---
Subjective Subjective Date of Service: Sep 13, 2017. Pt evaluation today including: conversation w/ patient, physical exam, chart review, lab review, review of studies, review of inpatient medication list Additional Details: Pt seen and examined, states that she feels about the same. Cough marginally improved. SOB stable. Denies cp, palpitations, lightheadedness or dizziness. Tele reviewed: sinus rhythm/sinus tach. Problem List Medical Problems: (1) Acute bronchitis Status: Acute (2) Acute chest pain Status: Acute (3) Anemia Status: Acute (4) Enlarged lymph node Status: Acute (5) Hypoxia Status: Acute (6) Neck pain on right side Status: Acute (7) Pulmonary edema Status: Acute Review of Systems Respiratory: + cough, + shortness of breath, + dyspnea on exertion Cardiac: No see HPI, No chest pain, No orthopnea, No PND, No edema, No claudication, No palpitations, No problem reported Objective Vital Signs Last Vital Signs Documentation Date Time Temp Pulse Resp B/P (MAP) Pulse Ox O2 Delivery O2 Flow Rate FiO2 09/13/17 08:00 Nasal Cannula 2.0 09/13/17 07:58 36.4 94 18 119/82 (94) 98 09/13/17 07:02 35 Physical Exam: General Appearance: WD/WN, no apparent distress, + obese Eyes: bilateral eyes normal inspection, bilateral eyes PERRL, bilateral eyes EOMI ENT: normal ENT inspection, hearing grossly normal, pharynx normal Neck: supple, no adenopathy, thyroid normal, no JVD, no carotid bruits, trachea midline Respiratory/Chest: chest non-tender, no respiratory distress, no accessory muscle use, + rhonchi Cardiovascular: regular rate, rhythm, + tachycardia, + gallop/S4 (3/6 holosystolic. LSB, 5th ICS with radiation to L axilla) Abdomen: normal bowel sounds, non tender, soft, no organomegaly Extremities: normal inspection, no pedal edema, no calf tenderness Neurologic/Psychiatric: lcsw II-XII nml as tested, no motor/sensory deficits, alert, normal mood/affect, oriented x 3 Skin: normal color, warm/dry, no rash Lymphatic: no adenopathy Assessment and Plan 1. cough/sob stable no role for diuretics at this time 2. cardiomyopathy known ischemic cardiomyopathy with EF on 08/28 outpatient echo found EF to be 37% and has remained stable unclear if secondary to underlying stressors: emotional, lymphoma, possible infection no sign of active ischemia no role for cath at this time especially given renal function keerthi obviously held cont evidence based beta isael: coreg unable to start spironolactone or Entresto given renal function unfortunately, do not believe that heart function can be further improved at this point discussed impaired function with patient along with need for chemo and possibility of worsening heart function she states that she understands, is accepting of the risk and wishes to proceed with chemo as per oncology do not see any benefit in delaying chemo therapy from cardiac standpoint 3. acute renal failure appreciate nephrology input improving cont to monitor on tele
--- NOTE | 2017-09-13 12:34 | Pharmacy Progress Note ---
Pharmacy Abx Dose Progress Nt Date of Service Sep 13, 2017. Pharmacy Dosing Scope The patient is currently receiving the following antimicrobial agents per Pharmacy consult: Vancomycin 2250 mg IV x 1 dose on 09/11 at 1830 Zosyn 4.5g IV Q12H Objective Height (Feet): 5 Height (Inches): 5.00 Weight (Kilograms): 114.200 Vital Signs (Past 12Hrs) Vital Signs Past 12 Hours Date Time Temp Pulse Resp B/P (MAP) Pulse Ox O2 Delivery O2 Flow Rate FiO2 09/13/17 12:00 BiPAP 09/13/17 11:21 36.5 103 22 92/61 (71) 91 Nasal Cannula 2.0 09/13/17 08:00 Nasal Cannula 2.0 09/13/17 07:58 36.4 94 18 119/82 (94) 98 BiPAP 09/13/17 07:02 96 98 35 09/13/17 04:00 BiPAP 35 09/13/17 04:00 36.5 99 22 107/72 (84) 100 BiPAP 35 Lab Results (24Hrs) Item Value Date Time Random Vancomycin Level 13.3 mcg/ml 09/13/17 0614 Random Vancomycin Level 24.4 mcg/ml 09/12/17 0445 Item Value Date Time Creatinine 2.80 mg/dl H # 09/13/17 0614 Creatinine 3.39 mg/dl H # 09/12/17 0445 Creatinine 2.74 mg/dl H 09/11/17 0916 Test 09/09/17 21:30 09/09/17 21:35 09/09/17 21:37 09/09/17 21:45 Total Bilirubin 0.3 Aspartate Amino Transferase (AST) 15 Alanine Aminotransferase (ALT) 18 Alkaline Phosphatase 104 Total Creatine Kinase 102 Creatine Kinase MB 1.5 Creatine Kinase MB Ratio 1.5 Pro-B-Type Natriuretic Peptide 2648 Total Protein 7.1 Albumin 2.9 Globulin 4.2 Albumin/Globulin Ratio 0.7 Beta-Hydroxybutyric Acid 1.72 POC D-Dimer > 450 POC Hemoglobin 11.2 POC Hematocrit 33 POC Sodium 137 POC Potassium 4.5 POC Chloride 102 POC Total CO2 25 POC Blood Urea Nitrogen 25 POC Creatinine 1.0 POC Glucose 349 POC Ionized Calcium (Patty) 1.15 Bordetella pertussis Spec Source Swab Bordetella pertussis DNA (PCR) Not Detected Bordetella parapertussis DNA (PCR) Not Detected Influenza Type A (RT-PCR) Neg for Influ A Influenza Type A Antigen Neg for Influ A Influenza Type B Antigen Neg for Influ B Influenza Type B (RT-PCR) Neg for Influ B Test 09/10/17 04:05 09/10/17 07:24 09/11/17 04:11 09/11/17 17:30 Troponin I 0.141 0.112 Beta-Hydroxybutyric Acid 0.99 Procalcitonin 0.06 Prothrombin Time 10.4 Prothrombin Time INR 1.0 Polychromasia 1+ Basophilic Stippling 1+ Anisocytosis PRESENT Estimated Average Glucose 292 Hemoglobin A1c 11.8 HIV (1&2) Ab and P24 Ag, 4th Gener NEG Test 09/12/17 04:45 09/12/17 16:11 09/12/17 16:36 09/12/17 20:24 White Blood Count 12.16 Red Blood Count 2.90 Hemoglobin 8.5 Hematocrit 26.6 Mean Corpuscular Volume 91.7 Mean Corpuscular Hemoglobin 29.3 Mean Corpuscular Hemoglobin Concent 32.0 Platelet Count 349 Mean Platelet Volume 9.5 Neutrophils (%) (Auto) 74.4 Lymphocytes (%) (Auto) 12.3 Monocytes (%) (Auto) 11.3 Eosinophils (%) (Auto) 1.6 Basophils (%) (Auto) 0.2 Neutrophils # (Auto) 9.05 Lymphocytes # (Auto) 1.50 Monocytes # (Auto) 1.37 Eosinophils # (Auto) 0.19 Basophils # (Auto) 0.03 RDW Standard Deviation 46.4 RDW Coefficient of Variation 13.9 Immature Granulocyte % (Auto) 0.2 Immature Granulocyte # (Auto) 0.02 Red Blood Cell Morphology Unremarkable Sodium Level 134 Potassium Level 4.8 Chloride Level 104 Carbon Dioxide Level 23 Anion Gap 7.0 Blood Urea Nitrogen 52 Creatinine 3.39 Est Creatinine Clear Calc Drug Dose 22.2 Estimated GFR () 16.7 Estimated GFR (Non- 14.4 BUN/Creatinine Ratio 15.3 Random Glucose 98 Uric Acid 7.8 Calcium Level 8.3 Phosphorus Level 6.5 Magnesium Level 2.2 Random Vancomycin Level 24.4 Immunoglobulin G 858.0 Immunoglobulin A 237.0 Immunoglobulin M 61.6 Immunoglobulin E Pending POC Glucose 181 168 Test 09/12/17 21:55 09/13/17 06:14 Urine Color YELLOW Urine Appearance CLEAR Urine pH 5.0 Urine Specific [place] 1.024 Urine Protein NEG Urine Glucose (UA) NEG Urine Ketones NEG Urine Occult Blood NEG Urine Nitrite NEG Urine Bilirubin NEG Urine Urobilinogen NEG Urine Leukocyte Esterase MODERATE Urine WBC (Auto) 10-30 Urine RBC (Auto) 0-4 Urine Hyaline Casts (Auto) 1-5 Urine Epithelial Cells (Auto) >30 Urine Bacteria (Auto) NEG Urine Pathogenic Casts Urine Random Sodium 10 White Blood Count 8.43 Red Blood Count 2.87 Hemoglobin 8.2 Hematocrit 25.9 Mean Corpuscular Volume 90.2 Mean Corpuscular Hemoglobin 28.6 Mean Corpuscular Hemoglobin Concent 31.7 Platelet Count 353 Mean Platelet Volume 9.2 Neutrophils (%) (Auto) 75.1 Lymphocytes (%) (Auto) 14.5 Monocytes (%) (Auto) 8.4 Eosinophils (%) (Auto) 1.7 Basophils (%) (Auto) 0.2 Neutrophils # (Auto) 6.33 Lymphocytes # (Auto) 1.22 Monocytes # (Auto) 0.71 Eosinophils # (Auto) 0.14 Basophils # (Auto) 0.02 RDW Standard Deviation 44.9 RDW Coefficient of Variation 13.7 Immature Granulocyte % (Auto) 0.1 Immature Granulocyte # (Auto) 0.01 Sodium Level 136 Potassium Level 4.8 Chloride Level 105 Carbon Dioxide Level 21 Anion Gap 10.0 Blood Urea Nitrogen 63 Creatinine 2.80 Est Creatinine Clear Calc Drug Dose 28.3 Estimated GFR () 21.0 Estimated GFR (Non- 18.1 BUN/Creatinine Ratio 22.5 Random Glucose 122 Calcium Level 8.6 Magnesium Level 2.5 Thyroid Stimulating Hormone (TSH) 2.070 Random Vancomycin Level 13.3 Micro Results Date/Time Source Procedure Growth Status 09/09/17 22:00 Blood Blood Culture - Preliminary NO GROWTH TO DATE. Resulted 09/09/17 21:30 Blood Blood Culture - Preliminary NO GROWTH TO DATE. Resulted 09/11/17 00:00 Nasal MRSA DNA Surveillance Screen - Final Specimen Positive for MRSA by DNA Probe Complete 09/12/17 21:55 Sputum Expectorated Sputum Gram Stain - Final Resulted 09/12/17 21:55 Sputum Expectorated Sputum Sputum Culture Pending Resulted Risk Factors for Resistance * Antimicrobial use within the last 90 days Rocephin and Zithromax failed Assessment & Plan Assessment 57 year old female receiving IV Vancomycin and Zosyn for treatment of CAP, SCr worsened yesterday, but better today, still not at baseline. Day # 3 of antimicrobial therapy Plan Vancomycin IV * Random level of 13.3 mcg/mL is subtherapeutic and patient requires re-dosing at 15mg/kg * Vancomycin 1750 mg IV x 1 dose at 0830 this morning * Goal trough level for CAP : 15 to 20 mcg/mL * Trough or random level ordered for: 09/14/17 with AM labs * Will continue to dose empirically based off of drug levels due to changing and poor kidney function Piperacillin/tazobactam * Continue 4.5 g IV extended infusion every 12 hours for CrCl 20 mL/min or less. Pt CrCl just above 20ml/min, but since pt is on higher dose and SCr has been labile, will continue at Q12H Pharmacy will continue to follow and will adjust dose/frequency as necessary. Thank you.
--- NOTE | 2017-09-13 14:16 | Pulmonology Progress Note ---
Pulmonary Progress Note Date of Service Sep 13, 2017. Attending Dr. Orona Subjective Patient seen and examined this morning. States that she slept well with BIPAP overnight. Switched to NC this morning. She is still feeling extremely fatigued. She is having less cough today. She denies any chest pain. Objective VS reviewed. Tm 36.5, BP 92/61-119/82, P 94-103, RR 18-22, SaO2 91-100% on 2L NC. Gen: AAOx3, NAD. Eating lunch. Coughing intermittently. CVS: S1, S2, RRR Neck: high pitched wheeze. Chest: left chemoport in place Lungs: bibasilar crackles, no wheezes. Abd: obese/NT/ND/BS+ Ext: no edema bilaterally, no clubbing, no cyanosis Labs reviewed. IgG 858, IgA 237, IgM 61. IgE pending. TSH 2.07 Sputum culture-pending Creatinine 3.39-->2.8 Imaging reviewed and viewed by me. CT neck 09/12/2017--no acute abnormalities; small bilateral pleural effusion with interlobular septal thickening. Moderate intervertebral disc space narrowing. Assessment & Plan Dyspnea Cough B-cell lymphoma Ischemic cardiomyopathy Acute on chronic renal failure Congestive heart failure Possible pneumonia History of DANGELO Morbid obesity Patient shortness of breath,dyspnea, cough are multifactorial in nature. Less coughing. Still stridors this afternoon. Slept well with BIPAP overnight. Recommendations Continue with supplemental oxygen to maintain SaO2 > 92%. I would continue antibiotics for 5-7 days. Continue with codeine cough syrup Continue with bronchodilators, which may provide some symptomatic relief. Continue to hold diuretics per nephrology. Continue to hold ACEI. Cardiology is on board and optimizing cardiac medications. Continue with PPI and qVAR. She should rinse her mouth after use. Consider Speech and swallow evaluation to rule out aspiration, this can be done next week. F/u IGE levels. She should have full PFT done as an outpatient. Continue with DVT ppx. Heme Onc on board for possible commencement of chemotherapy during hospitalization. Discussed with Dr. Jones. Data Medications: Current Inpatient Medications Medications (Trade) Dose Ordered Sig/Chantale Route Start Time Stop Time Status Last Admin Dose Admin Ioversol (Optiray 320) 100 ml UD PRN IV 09/09/17 22:00 09/13/17 21:59 Ondansetron HCl (Zofran Inj) 4 mg Q6H PRN IV 09/10/17 00:00 10/10/17 00:00 09/10/17 16:37 4 MG Amlodipine Besylate (Norvasc Tab) 2.5 mg DAILY PO 09/10/17 09:00 10/10/17 08:59 09/13/17 07:48 2.5 MG Aspirin (Ecotrin Tab) 81 mg DAILY PO 09/10/17 09:00 10/10/17 08:59 09/13/17 07:52 81 MG Atorvastatin Calcium (Lipitor Tab) 80 mg DAILY PO 09/10/17 09:00 10/10/17 08:59 09/13/17 07:52 80 MG Carvedilol (Coreg Tab) 25 mg BID PO 09/10/17 09:00 10/10/17 08:59 09/13/17 08:05 25 MG Clopidogrel Bisulfate (plAVix TAB) 75 mg QAM PO 09/10/17 09:00 10/10/17 08:59 09/13/17 07:52 75 MG Gabapentin (Neurontin Cap) 300 mg TID PO 09/10/17 09:00 10/10/17 08:59 09/13/17 13:39 300 MG Acetaminophen/ Hydrocodone Bitart (Dewart 5/325 Tab) 1 tab Q6 PRN PO 09/10/17 00:15 09/24/17 00:14 09/12/17 19:26 1 TAB Lisinopril (Zestril Tab) 5 mg DAILY PO 09/10/17 09:00 10/10/17 08:59 Future Hold 09/10/17 09:21 5 MG Lorazepam (Ativan Tab) 0.5 mg Q6H PRN PO 09/10/17 00:15 10/10/17 00:14 Trazodone HCl (Desyrel Tab) 50 mg HS PO 09/10/17 21:00 10/10/17 20:59 09/12/17 21:34 50 MG Venlafaxine HCl (effeXOR EXTENDED REL CAP) 150 mg DAILY PO 09/10/17 09:00 10/10/17 08:59 09/13/17 07:50 150 MG Buspirone HCl (Buspar Tab) 20 mg BID PO 09/10/17 09:00 10/10/17 08:59 09/13/17 07:53 20 MG Venlafaxine HCl (effeXOR EXTENDED REL CAP) 37.5 mg DAILY PO 09/10/17 09:00 10/10/17 08:59 09/13/17 07:49 37.5 MG Benzonatate (Tessalon Perles Cap) 100 mg Q6 PRN PO 09/10/17 01:00 10/10/17 00:59 Insulin Aspart (novoLOG ASPART) SLIDING SCALE If C... ACHS SC 09/10/17 03:45 10/10/17 03:44 Future hold 09/13/17 11:57 14 UNITS Glucose (Glucose 40% Gel) 15-30 GRAMS 15 GRAMS... UD PRN PO 09/10/17 01:45 10/10/17 01:44 Glucose (Glucose Chew Tab) 4-8 Tablets 4 Tabl... UD PRN PO 09/10/17 01:45 10/10/17 01:44 Dextrose (Dextrose 50% 50ML Syringe) 25-50ML OF 50% DW IV FOR... UD PRN IV 09/10/17 01:45 10/10/17 01:44 Glucagon (Glucagon Inj) 1 mg UD PRN SQ 09/10/17 01:45 10/10/17 01:44 Miscellaneous Information (Consult Glycemic Management Pharmacy) 1 ea UD PRN N/A 09/10/17 06:34 10/10/17 06:33 Ipratropium [place] (Atrovent 0.02% 0.5MG/2.5ML Neb) 0.5 mg Q4H PRN INH 09/10/17 06:30 10/10/17 06:29 09/12/17 15:19 0.5 MG Levalbuterol (Xopenex 0.63 Mg/ 3 Ml Neb) 0.63 mg Q4H PRN INH 09/10/17 06:30 10/10/17 06:29 09/12/17 15:19 0.63 MG Hydrocodone Bit/ Homatropine Methylb (Hycodan Syrup) 5 ml Q6 PRN PO 09/10/17 13:15 09/24/17 13:14 09/13/17 08:10 5 ML Fenofibrate 67 mg DAILY PO 09/11/17 09:00 10/11/17 08:59 09/13/17 07:54 67 MG Furosemide 40 mg/ Syringe 4 ml @ 4 mls/min BID IV 09/10/17 21:00 10/10/17 20:59 Future Hold Azithromycin (Zithromax Tab) 500 mg Q24H PO 09/10/17 18:45 09/17/17 18:29 09/12/17 19:23 500 MG Heparin Sodium (Porcine) (Heparin 100 Unit/ml 5ml Flush) 5 ml PRN PRN IV 09/11/17 01:15 10/11/17 01:14 09/13/17 06:20 5 ML Hydromorphone HCl (Dilaudid Inj) 0.5 mg Q4 PRN IV 09/11/17 14:00 09/25/17 13:59 09/13/17 13:40 0.5 MG Heparin Sodium (Porcine) (Heparin Sq 5000 Unit/0.5ml) 5,000 unit Q8 SC 09/12/17 06:00 10/12/17 05:59 09/13/17 13:41 5,000 UNIT Vancomycin HCl (Consult) 1 ea UD PRN N/A 09/11/17 18:30 10/11/17 18:29 Piperacillin Sod/ Tazobactam Sod (Consult) 1 ea UD PRN N/A 09/11/17 18:30 10/11/17 18:29 Piperacillin Sod/ Tazobactam Sod 4.5 gm/Dextrose 120 ml @ 30 mls/hr Q12H IV 09/12/17 02:00 09/19/17 01:59 09/13/17 13:39 30 MLS/HR Mupirocin (Bactroban 2% Oint) 1 appln BID EXT 09/12/17 09:00 09/17/17 08:59 09/13/17 07:55 1 APPLN Beclomethasone Dipropionate (Qvar 80 Mcg Hfa Inhaler) 1 puffs BID INH 09/12/17 21:00 10/12/17 20:59 09/13/17 07:55 1 PUFFS Pantoprazole Sodium (Protonix Tab) 40 mg QAM PO 09/13/17 09:00 10/13/17 08:59 09/13/17 07:49 40 MG Insulin Detemir (Levemir Flexpen/ FlexTouch) 12 units BID SQ 09/13/17 09:00 10/13/17 08:59 09/13/17 08:02 12 UNITS I & O: 24-Hour Column 09/14/17 07:59 Intake Total 1065 ml Output Total 500 ml Balance 565 ml Vital Signs: Date Time Temp Pulse Resp B/P (MAP) Pulse Ox O2 Delivery O2 Flow Rate FiO2 09/13/17 12:00 BiPAP 09/13/17 11:21 36.5 103 22 92/61 (71) 91 Nasal Cannula 2.0 09/13/17 08:00 Nasal Cannula 2.0 09/13/17 07:58 36.4 94 18 119/82 (94) 98 BiPAP 09/13/17 07:02 96 98 35 09/13/17 04:00 BiPAP 35 09/13/17 04:00 36.5 99 22 107/72 (84) 100 BiPAP 35 09/13/17 00:00 BiPAP 35 09/13/17 00:00 36.4 96 20 117/72 (87) 99 BiPAP 35 09/12/17 23:37 96 98 35 09/12/17 21:35 104 115/63 (80) 98 BiPAP 35 09/12/17 20:17 36.5 108 18 97/55 (69) 98 BiPAP 09/12/17 20:00 BiPAP 35 09/12/17 19:12 114 99 35 09/12/17 16:07 36.8 102 18 102/69 (80) 95 09/12/17 16:05 Nasal Cannula 2.0 09/12/17 15:19 105 24 96 Nasal Cannula 2.0 Laboratory Results: Last 24 Hours Test 09/12/17 16:11 09/12/17 16:36 09/12/17 20:24 09/12/17 21:55 Immunoglobulin G 858.0 mg/dL Immunoglobulin A 237.0 mg/dL Immunoglobulin M 61.6 mg/dL Bedside Glucose 181 mg/dl 168 mg/dl Urine Color YELLOW Urine Appearance CLEAR Urine pH 5.0 Urine Specific [place] 1.024 Urine Protein NEG Urine Glucose (UA) NEG Urine Ketones NEG Urine Occult Blood NEG Urine Nitrite NEG Urine Bilirubin NEG Urine Urobilinogen NEG Urine Leukocyte Esterase MODERATE Urine WBC (Auto) 10-30 /hpf Urine RBC (Auto) 0-4 /hpf Urine Hyaline Casts (Auto) 1-5 /lpf Urine Epithelial Cells (Auto) >30 /lpf Urine Bacteria (Auto) NEG Urine Pathogenic Casts /lpf Urine Random Sodium 10 mEq/L Test 09/13/17 06:14 09/13/17 11:17 White Blood Count 8.43 K/uL Red Blood Count 2.87 M/uL Hemoglobin 8.2 g/dL Hematocrit 25.9 % Mean Corpuscular Volume 90.2 fL Mean Corpuscular Hemoglobin 28.6 pg Mean Corpuscular Hemoglobin Concent 31.7 g/dl Platelet Count 353 K/uL Mean Platelet Volume 9.2 fL Neutrophils (%) (Auto) 75.1 % Lymphocytes (%) (Auto) 14.5 % Monocytes (%) (Auto) 8.4 % Eosinophils (%) (Auto) 1.7 % Basophils (%) (Auto) 0.2 % Neutrophils # (Auto) 6.33 K/uL Lymphocytes # (Auto) 1.22 K/uL Monocytes # (Auto) 0.71 K/uL Eosinophils # (Auto) 0.14 K/uL Basophils # (Auto) 0.02 K/uL RDW Standard Deviation 44.9 fL RDW Coefficient of Variation 13.7 % Immature Granulocyte % (Auto) 0.1 % Immature Granulocyte # (Auto) 0.01 K/uL Sodium Level 136 mmol/L Potassium Level 4.8 mmol/L Chloride Level 105 mmol/L Carbon Dioxide Level 21 mmol/L Anion Gap 10.0 mmol/L Blood Urea Nitrogen 63 mg/dl Creatinine 2.80 mg/dl Est Creatinine Clear Calc Drug Dose 28.3 ml/min Estimated GFR () 21.0 Estimated GFR (Non- 18.1 BUN/Creatinine Ratio 22.5 Random Glucose 122 mg/dl Calcium Level 8.6 mg/dl Magnesium Level 2.5 mg/dl Thyroid Stimulating Hormone (TSH) 2.070 uIu/ml Random Vancomycin Level 13.3 mcg/ml Bedside Glucose 145 mg/dl
[2017-09-13] MEDS: IPRATROPIUM BROMIDE NEB SOLN 0.02% 2.5 ML VIAL INH PRN ×2 (17:23→21:16)
[2017-09-13] MEDS: LEVALBUTEROL 0.63MG/3 ML NEB INH PRN ×2 (17:23→21:16)
--- NOTE | 2017-09-13 18:10 | Progress Note ---
Internal Med Progress Note Date of Service: Sep 13, 2017. Provider Documentation: SUBJECTIVE: cough and sob is better today feeling very tired no chest pain afebrile no diarrhea hemodynamics stable OBJECTIVE: Vital Signs-as noted below Exam: General-alert and oriented. Not in distress ENT-normal hearing Neck-no neck masses Lungs- cta b/l no wheezing bibasilar crackles present Heart-s1 and s2 heard regular rate and rhythm no murmurs Abdomen-soft bowel sounds present no tenderness present no distension Extremities- no erythema no edema Neuro-alert and oriented moves extremities Lab data as noted below. ASSESSMENT & PLAN: presented with Worsening Dyspnea Pulmonary edema on ct scan Acute systolic CHF exacerbation? hx of DANGELO Has cough Received Lasix 40mg IV and Levaquin, Vanco, Cefepime given in the ER repeat cxr next day slight worsening of pul congestion RECENT ECHO SHOWED ef 37% was p[laced on lasix 40mg iv bid repeat echo shows ef 35-40% cardiology on board renal function worsened. Lasix stopped requiring bipap at night( At home could not tolerated mask for dangelo) close monitor in tele Pneumonia? initially empirically started on Rocephin and azithromycin Rocephin stopped and added Zosyn and vanco 09/11/17 mrsa swab positive Pulmonary on board to continue current abx ARF after Lasix? contrast induced? received gentle fluids but stopped as patient complained of sob cr peaked to 3.3 and cr 2.8 today nephrology on board f/u labs Elevated troponin mostly NSTEMI from demand ischemia trending down f/u echo- no change from previous echo Elevated WBC Received Levaquin, Cefepime and Vanco has cough empiric abx as above f/u cx DM type 2 Last HBA1C was 8.6 on 06/19 Hyperglycemia pharmacy on board hba1c 11.8 will monitor HTN to hold while BP low At home on amlodipine, coreg, lisinopril will monitor B Cell Lymphoma Plan to start chemo treatment Continue follow with oncology Heme/onco consulted await inputs ct soft neck no compressing lymphadenopathy mild elevation of uric acid mostly from dehydration as per nephrology Heme/onco contemplating starting chemo this admission once ARF resolves. CAD Continue coreg/ asa, plavix and statin Cough B. Pertussis negative Influenza neg abx as above Hycodan prn. DVT px on Lovenox CODE STATUS Ful code DISPOSITION monitor in tele to be determined Vital Signs: Date Time Temp Pulse Resp B/P (MAP) Pulse Ox O2 Delivery O2 Flow Rate FiO2 09/13/17 17:35 107 98 35 09/13/17 17:23 103 22 98 Nasal Cannula 3.0 09/13/17 16:00 Nasal Cannula 2.0 09/13/17 15:44 36.8 103 20 127/87 (100) 92 Nasal Cannula 2.0 09/13/17 12:00 BiPAP 09/13/17 11:21 36.5 103 22 92/61 (71) 91 Nasal Cannula 2.0 09/13/17 08:00 Nasal Cannula 2.0 09/13/17 07:58 36.4 94 18 119/82 (94) 98 BiPAP 09/13/17 07:02 96 98 35 09/13/17 04:00 BiPAP 35 09/13/17 04:00 36.5 99 22 107/72 (84) 100 BiPAP 35 09/13/17 00:00 BiPAP 35 09/13/17 00:00 36.4 96 20 117/72 (87) 99 BiPAP 35 09/12/17 23:37 96 98 35 09/12/17 21:35 104 115/63 (80) 98 BiPAP 35 09/12/17 20:17 36.5 108 18 97/55 (69) 98 BiPAP 09/12/17 20:00 BiPAP 35 09/12/17 19:12 114 99 35 Lab Results: Results Past 24 Hours Test 09/12/17 20:24 09/12/17 21:55 09/13/17 06:14 09/13/17 11:17 Range/Units Bedside Glucose 168 145 70-90 mg/dl Urine Color YELLOW Urine Appearance CLEAR CLEAR Urine pH 5.0 4.5-7.5 Urine Specific [place] 1.024 1.000-1.030 Urine Protein NEG NEG Urine Glucose (UA) NEG NEG Urine Ketones NEG NEG Urine Occult Blood NEG NEG Urine Nitrite NEG NEG Urine Bilirubin NEG NEG Urine Urobilinogen NEG NEG Urine Leukocyte Esterase MODERATE NEG Urine WBC (Auto) 10-30 0-5 /hpf Urine RBC (Auto) 0-4 0-4 /hpf Urine Hyaline Casts (Auto) 1-5 0-5 /lpf Urine Epithelial Cells (Auto) >30 0-5 /lpf Urine Bacteria (Auto) NEG NEG Urine Pathogenic Casts 0 /lpf Urine Random Sodium 10 mEq/L White Blood Count 8.43 4.8-10.8 K/uL Red Blood Count 2.87 4.2-5.4 M/uL Hemoglobin 8.2 12.0-16.0 g/dL Hematocrit 25.9 37-47 % Mean Corpuscular Volume 90.2 80-100 fL Mean Corpuscular Hemoglobin 28.6 25-34 pg Mean Corpuscular Hemoglobin Concent 31.7 32-36 g/dl Platelet Count 353 130-400 K/uL Mean Platelet Volume 9.2 7.4-10.4 fL Neutrophils (%) (Auto) 75.1 % Lymphocytes (%) (Auto) 14.5 % Monocytes (%) (Auto) 8.4 % Eosinophils (%) (Auto) 1.7 % Basophils (%) (Auto) 0.2 % Neutrophils # (Auto) 6.33 1.4-6.5 K/uL Lymphocytes # (Auto) 1.22 1.2-3.4 K/uL Monocytes # (Auto) 0.71 0.11-0.59 K/uL Eosinophils # (Auto) 0.14 0-0.5 K/uL Basophils # (Auto) 0.02 0-0.2 K/uL RDW Standard Deviation 44.9 36.4-46.3 fL RDW Coefficient of Variation 13.7 11.5-14.5 % Immature Granulocyte % (Auto) 0.1 % Immature Granulocyte # (Auto) 0.01 0.00-0.02 K/uL Sodium Level 136 136-145 mmol/L Potassium Level 4.8 3.5-5.1 mmol/L Chloride Level 105 98-107 mmol/L Carbon Dioxide Level 21 21-32 mmol/L Anion Gap 10.0 3-11 mmol/L Blood Urea Nitrogen 63 7-18 mg/dl Creatinine 2.80 0.60-1.20 mg/dl Est Creatinine Clear Calc Drug Dose 28.3 ml/min Estimated GFR () 21.0 Estimated GFR (Non- 18.1 BUN/Creatinine Ratio 22.5 10-20 Random Glucose 122 70-99 mg/dl Calcium Level 8.6 8.5-10.1 mg/dl Magnesium Level 2.5 1.8-2.4 mg/dl Thyroid Stimulating Hormone (TSH) 2.070 0.300-4.500 uIu/ml Random Vancomycin Level 13.3 mcg/ml Test 09/13/17 16:31 Range/Units Bedside Glucose 94 70-90 mg/dl Microbiology Results 09/12/17 Gram Stain - Final, Resulted 09/12/17 Sputum Culture - Preliminary, Resulted MODERATE NORMAL KONRAD Present, Final ...
[2017-09-13] MEDS: AZITHROMYCIN 250 MG TAB PO SCH (18:57)
[2017-09-13] MEDS: TRAZODONE HCL 50 MG TAB PO SCH (20:40)
--- NOTE | 2017-09-13 21:40 | DIAGNOSTIC IMAGING REPORT ---
CHEST ONE VIEW PORTABLE CLINICAL HISTORY: 57 years-old Female presenting with SOB. TECHNIQUE: Portable upright AP view of the chest was obtained. COMPARISON: 09/12/2017. FINDINGS: Left subclavian Mediport terminates in the upper IVC. Cardiac mediastinal silhouette remains enlarged. Prominent pulmonary vasculature unchanged. Perihilar and bibasilar opacities stable to slightly decreased from prior. Possible left pleural effusion. No pneumothorax. Thoracolumbar fusion hardware partially visualized. External leads overlie the upper abdomen degrading evaluation. IMPRESSION: 1. Stable to slight decrease and perihilar and bibasilar opacities likely representing pulmonary edema. 2. Suspected small left pleural effusion. 3. Cardiomegaly. Electronically signed by: Fabrice Foss M.D. 09/13/2017 9:39 PM Dictated Date/Time: 09/13/2017 9:37 PM
[2017-09-14] VITALS (12 sets, daily range): BP systolic 100–136; BP diastolic 65–94; PULSE 73–108; TEMP 36.6–37.4; O2SAT 92–100
[2017-09-14] MEDS: PIPERACILL/TAZOBAC IV 4.5 GM in DEXTROSE 5% 100ML IV SCH ×3 (02:14→19:56)
[2017-09-14] MEDS: HYDROmorphone INJ 0.5 MG/0.5 ML SYR IV PRN ×2 (04:56→12:43)
[2017-09-14] MEDS: HEPARIN SOD 5000 UNIT/0.5 ML CARP SC SCH ×2 (05:36→14:54)
[2017-09-14 06:14] LABS: HEMATOCRIT 26.6 % (37-47); MEAN CELL VOLUME 90.8 fL (80-100); MEAN CORPUSCULAR HEMOGLOBIN 28.3 pg (25-34); MEAN CORPUSCULAR HGB CONC 31.2 g/dl (32-36); MEAN PLATELET VOLUME 9.2 fL (7.4-10.4); PLATELET COUNT 394 K/uL (130-400); RED BLOOD COUNT 2.93 M/uL (4.2-5.4); WHITE BLOOD COUNT 10.25 K/uL (4.8-10.8)
[2017-09-14 06:40] LABS: CREATININE 1.92 mg/dl (0.60-1.20)
[2017-09-14] MEDS: HYDROCODONE/ACETAMOPHEN 5/325MG TAB PO PRN (07:39)
[2017-09-14] MEDS: CLOPIDOGREL BISULFATE 75 MG TAB PO SCH (07:39)
[2017-09-14] MEDS: CARVEDILOL 25 MG TAB PO SCH (07:40)
[2017-09-14] MEDS: AMLODIPINE BESYLATE 5 MG TAB PO SCH (07:40)
[2017-09-14] MEDS: ATORVASTATIN 40 MG TAB PO SCH (07:41)
[2017-09-14] MEDS: PANTOprazole SOD 40 MG TAB PO SCH (07:41)
[2017-09-14] MEDS: VENLAFAXINE HCL XR 150 MG CAPXR PO SCH (07:41)
[2017-09-14] MEDS: ASPIRIN 81 MG ECTAB PO SCH (07:41)
[2017-09-14] MEDS: VENLAFAXINE HCL XR 37.5 MG CAPXR PO SCH (07:41)
[2017-09-14] MEDS: GABAPENTIN 300 MG CAP PO SCH ×2 (07:41→14:56)
[2017-09-14] MEDS: BECLOMETHASONE DIP HFA 80 MCG 8.7G INH INH SCH (07:42)
[2017-09-14] MEDS: MUPIROCIN 2% OINT 22 GM TUBE EXT SCH ×2 (07:45→21:33)
[2017-09-14] MEDS: FENOFIBRATE MICRONIZED 67 MG PO SCH (07:45)
[2017-09-14 08:01] LABS: BUN/CREATININE RATIO 32.7 (10-20); CALCIUM 8.9 mg/dl (8.5-10.1); CREATININE 1.97 mg/dl (0.60-1.20); POTASSIUM 4.4 mmol/L (3.5-5.1)
--- NOTE | 2017-09-14 08:49 | Pharmacy Progress Note ---
Pharmacy Abx Dose Short Note Date of Service Sep 14, 2017. Assessment & Plan Item Value Date Time Creatinine 2.52 mg/dl H # 09/11/17 0411 Creatinine 2.74 mg/dl H 09/11/17 0916 Creatinine 3.39 mg/dl H # 09/12/17 0445 Creatinine 2.80 mg/dl H # 09/13/17 0614 Creatinine 1.92 mg/dl H # 09/14/17 0550 Creatinine 1.97 mg/dl H 09/14/17 0550 Assessment 57 year old female receiving IV Vancomycin and Zosyn for treatment of pneumonia Day # 02/07 of antimicrobial therapy. Patient still in [facility], SCr significantly improving. Baseline SCr = 1.1mg/dl Plan Vancomycin * Random level of 22.3 mcg/mL drawn 20 hours after patient's dose (given at 1020 09/13) * This level is slightly supratherapeutic, indicating patient likely will do well with a Q24H dosing at this time * Kidneys are significantly improving, this was considered in the dosing over the next two days * Vancomycin 1750 mg IV every 24 hours * Goal trough level for pneumonia : 15 to 20 mcg/mL * Trough or random level ordered for: 09/16/17 prior to 1200 dose Zosyn * CrCl now > 20ml/min - increase dose to 4.5g IV Q8H extended interval infusion Pharmacy will continue to follow and will adjust dose/frequency as necessary. Thank you.
[2017-09-14] MEDS: INSULIN ASPART 100 UNITS/ML 3 ML PEN SC SCH ×3 (08:52→18:34)
--- NOTE | 2017-09-14 08:53 | Pharmacy Progress Note ---
Glycemic: Assessment & Plan Date of Service Sep 14, 2017. Assessment & Plan Outpatient Anti-diabetic Regimen: * Levemir 10 units SQ HS * Glipizide 20 mg PO BIDM * Metformin 1,000mg PO BIDM ASSESSMENT: 09/11/17 * 57yo T2DM female with poorly controlled diabetes as outpatient - evidenced by A1c of 11.8% this AM * Pt with sustained severe hyperglycemia since admission secondary to stress/ illness and held oral agents * Over the past 24 hours, patient initiated on basal/bolus regimen in addition to insulin drip to bridge the gap for SQ to take effect * Drip turned off early this AM around 0400 * Plan for today will take into consideration drip rates and SQ admin over the past 24 hours * Add midnight and 0400 checks due to recent drip transition and unknown basal needs 09/12/17 * Pt has received a total of 83 units of insulin over the past 24 hours * BSGs ranging 104-208 mg/dL * Fasting BSG this AM 98 mg/dL -slightly below goal range * Reduce basal insulin * Prandial coverage seemed appropriate yesterday; however, it is documented that patient's family has been bringing in snacks that patient is not being covered for * Snacking puts the patient at a higher risk of highs/lows as she may be under/ overcorrected throughout the day 09/14/17 * BSGs ranging 93-122 mg/dL over the past 24 hours * Fasting BSG this AM = 67 mg/dL, and patient treated via hypoglycemia protocol with oral glucose tabs * Now that patient's renal function is starting to improve, it is likely that insulin is now start to redistribute * I held Levemir this AM with plans to re-dose this evening with a reduced dose - likely 18 units; however, pt now initiated on IV solumedrol 40 mg daily * IV steroids in the setting of her fasting low BSG makes choosing tonight's doses difficult * I want to ultimately convert patient to daily NPH dosing to cover steroid dose and continue Levemir HS to get back to home regimen * Pharmacist collette will monitor closely and make changes/give IV bolus if necessary * In the meantime, re-tighten Novolog in the setting of anticipated steroid- induced hyperglycemia PLAN FOR INPATIENT GLYCEMIC CONTROL: * Oral agents: * Hold outpatient oral diabetes medications * Basal insulin * Held Levemir this AM * Continue Levemir with dinner tonight based on BSG * Reassess ongoing HS dose tomorrow * Bolus insulin * NovoLog per scale ACHS * Goal Range: Low 120 mg/dL - High 150 mg/dL * Correction Factor: 15 mg/dL/unit * Nutritional / Prandial insulin per carb ratio of 1 unit per 5 grams CHO consumed * Please note that the plan above was derived based on current level of insulin resistance and hospital stress. These recommendations are appropriate for inpatient admission only. Plan of care upon discharge will need to be reassessed to avoid potential outpatient hypo/hyperglycemia. Thank you.
[2017-09-14] MEDS ORDERED: RACEPINEPHRINE 2.25% NEBU SOLN 0.5 ML VIAL INH STA (10:17)
--- NOTE | 2017-09-14 10:17 | Pulmonology Progress Note ---
Pulmonary Progress Note Date of Service Sep 14, 2017. Attending Dr. [place] Subjective Patient seen examined. She was sleeping on BIPAP easily awakened to voice. She complains that she feels as if she has at a standstill and would like to have chemotherapy. She still complains of cough which she states has minimally improved. She still has intermittent episodes of shortness of breath. She denies any chest tightness. She was placed on BIPAP to respiratory distress with stridor on examination with improvement of dyspnea. Overall feeling increased malaise and fatigue. Objective VS reviewed. Tm 37.4, BP 126/77-130/94, P 73-104, RR 20, SaO2 92-34% on 2L NC. Gen: AAOx3, NAD. Eating lunch. Coughing intermittently. CVS: S1, S2, RRR Neck: high pitched wheeze. Chest: left chemoport in place Lungs: bibasilar crackles, no wheezes. Abd: obese/NT/ND/BS+ Ext: no edema bilaterally, no clubbing, no cyanosis Labs reviewed. IgG 858, IgA 237, IgM 61. IgE pending. TSH 2.07 Sputum culture-pending Creatinine 3.39-->2.8-->1.9 Imaging reviewed and viewed by me. CXR 09/13/2017--stable to slight decrease in perihilar and bibasilar opacities; small pleural effusion; cardiomegaly. CT neck 09/12/2017--no acute abnormalities; small bilateral pleural effusion with interlobular septal thickening. Moderate intervertebral disc space narrowing. Medications reviewed. Assessment & Plan Dyspnea Cough B-cell lymphoma Ischemic cardiomyopathy Acute on chronic renal failure Congestive heart failure Possible pneumonia History of DANGELO Morbid obesity Patient shortness of breath,dyspnea, cough are multifactorial in nature. Slept well with BIPAP overnight. Still with stridors overnight and this morning. Recommendations Continue with supplemental oxygen to maintain SaO2 > 92%. Will give Solumedrol 40 mg daily and racemic epinephrine neb. I would continue antibiotics for 5-7 days. Continue with codeine cough syrup Continue with bronchodilators, which may provide some symptomatic relief. Continue to hold diuretics per nephrology. Continue to hold ACEI. Cardiology is on board and optimizing cardiac medications. Continue with PPI and qVAR. She should rinse her mouth after use. Consider Speech and swallow evaluation to rule out aspiration, this can be done next week. F/u IGE levels. She should have full PFT done as an outpatient. Continue with DVT ppx. Heme Onc on board for possible commencement of chemotherapy during hospitalization. Discussed with Dr. Jones. Data Medications: Current Inpatient Medications Medications (Trade) Dose Ordered Sig/Chantale Route Start Time Stop Time Status Last Admin Dose Admin Ondansetron HCl (Zofran Inj) 4 mg Q6H PRN IV 09/10/17 00:00 10/10/17 00:00 09/10/17 16:37 4 MG Amlodipine Besylate (Norvasc Tab) 2.5 mg DAILY PO 09/10/17 09:00 10/10/17 08:59 09/14/17 07:40 2.5 MG Aspirin (Ecotrin Tab) 81 mg DAILY PO 09/10/17 09:00 10/10/17 08:59 09/14/17 07:41 81 MG Atorvastatin Calcium (Lipitor Tab) 80 mg DAILY PO 09/10/17 09:00 10/10/17 08:59 09/14/17 07:41 80 MG Carvedilol (Coreg Tab) 25 mg BID PO 09/10/17 09:00 10/10/17 08:59 09/14/17 07:40 25 MG Clopidogrel Bisulfate (plAVix TAB) 75 mg QAM PO 09/10/17 09:00 10/10/17 08:59 09/14/17 07:39 75 MG Gabapentin (Neurontin Cap) 300 mg TID PO 09/10/17 09:00 10/10/17 08:59 09/14/17 07:41 300 MG Acetaminophen/ Hydrocodone Bitart ([place] 5/325 Tab) 1 tab Q6 PRN PO 09/10/17 00:15 09/24/17 00:14 09/14/17 07:39 1 TAB Lisinopril (Zestril Tab) 5 mg DAILY PO 09/10/17 09:00 10/10/17 08:59 Future Hold 09/10/17 09:21 5 MG Lorazepam (Ativan Tab) 0.5 mg Q6H PRN PO 09/10/17 00:15 10/10/17 00:14 Trazodone HCl (Desyrel Tab) 50 mg HS PO 09/10/17 21:00 10/10/17 20:59 09/13/17 20:40 50 MG Venlafaxine HCl (effeXOR EXTENDED REL CAP) 150 mg DAILY PO 09/10/17 09:00 10/10/17 08:59 09/14/17 07:41 150 MG Buspirone HCl (Buspar Tab) 20 mg BID PO 09/10/17 09:00 10/10/17 08:59 09/14/17 07:41 20 MG Venlafaxine HCl (effeXOR EXTENDED REL CAP) 37.5 mg DAILY PO 09/10/17 09:00 10/10/17 08:59 09/14/17 07:41 37.5 MG Benzonatate (Tessalon Perles Cap) 100 mg Q6 PRN PO 09/10/17 01:00 10/10/17 00:59 Insulin Aspart (novoLOG ASPART) SLIDING SCALE If C... ACHS SC 09/10/17 03:45 10/10/17 03:44 Future hold 09/14/17 08:52 2 UNITS Glucose (Glucose 40% Gel) 15-30 GRAMS 15 GRAMS... UD PRN PO 09/10/17 01:45 10/10/17 01:44 Glucose (Glucose Chew Tab) 4-8 Tablets 4 Tabl... UD PRN PO 09/10/17 01:45 10/10/17 01:44 Dextrose (Dextrose 50% 50ML Syringe) 25-50ML OF 50% DW IV FOR... UD PRN IV 09/10/17 01:45 10/10/17 01:44 Glucagon (Glucagon Inj) 1 mg UD PRN SQ 09/10/17 01:45 10/10/17 01:44 Miscellaneous Information (Consult Glycemic Management Pharmacy) 1 ea UD PRN N/A 09/10/17 06:34 10/10/17 06:33 Ipratropium [place] (Atrovent 0.02% 0.5MG/2.5ML Neb) 0.5 mg Q4H PRN INH 09/10/17 06:30 10/10/17 06:29 09/13/17 21:16 0.5 MG Levalbuterol (Xopenex 0.63 Mg/ 3 Ml Neb) 0.63 mg Q4H PRN INH 09/10/17 06:30 10/10/17 06:29 09/13/17 21:16 0.63 MG Hydrocodone Bit/ Homatropine Methylb (Hycodan Syrup) 5 ml Q6 PRN PO 09/10/17 13:15 09/24/17 13:14 09/13/17 08:10 5 ML Fenofibrate 67 mg DAILY PO 09/11/17 09:00 10/11/17 08:59 09/14/17 07:45 67 MG Furosemide 40 mg/ Syringe 4 ml @ 4 mls/min BID IV 09/10/17 21:00 10/10/17 20:59 Future Hold Azithromycin (Zithromax Tab) 500 mg Q24H PO 09/10/17 18:45 09/17/17 18:29 09/13/17 18:57 500 MG Heparin Sodium (Porcine) (Heparin 100 Unit/ml 5ml Flush) 5 ml PRN PRN IV 09/11/17 01:15 10/11/17 01:14 09/13/17 06:20 5 ML Hydromorphone HCl (Dilaudid Inj) 0.5 mg Q4 PRN IV 09/11/17 14:00 09/25/17 13:59 09/14/17 04:56 0.5 MG Heparin Sodium (Porcine) (Heparin Sq 5000 Unit/0.5ml) 5,000 unit Q8 SC 09/12/17 06:00 10/12/17 05:59 09/14/17 05:36 5,000 UNIT Vancomycin HCl (Consult) 1 ea UD PRN N/A 09/11/17 18:30 10/11/17 18:29 Piperacillin Sod/ Tazobactam Sod (Consult) 1 ea UD PRN N/A 09/11/17 18:30 10/11/17 18:29 Mupirocin (Bactroban 2% Oint) 1 appln BID EXT 09/12/17 09:00 09/17/17 08:59 09/14/17 07:45 1 APPLN Beclomethasone Dipropionate (Qvar 80 Mcg Hfa Inhaler) 1 puffs BID INH 09/12/17 21:00 10/12/17 20:59 09/14/17 07:42 1 PUFFS Pantoprazole Sodium (Protonix Tab) 40 mg QAM PO 09/13/17 09:00 10/13/17 08:59 09/14/17 07:41 40 MG Vancomycin HCl 1750 mg/Sodium Chloride 535 ml @ 200 mls/hr DAILY@1200 IV 09/14/17 12:00 09/21/17 11:59 Piperacillin Sod/ Tazobactam Sod 4.5 gm/Dextrose 120 ml @ 30 mls/hr Q8H IV 09/14/17 10:00 09/17/17 23:59 09/14/17 09:59 30 MLS/HR Vital Signs: Date Time Temp Pulse Resp B/P (MAP) Pulse Ox O2 Delivery O2 Flow Rate FiO2 09/14/17 07:08 36.7 104 20 130/94 (106) 94 09/14/17 04:00 Nasal Cannula 4.0 09/14/17 00:42 37.4 73 20 126/77 (93) 92 Nasal Cannula 4.0 104 09/14/17 00:15 BiPAP 35 09/13/17 23:56 37.1 106 17 117/76 (90) 97 CPAP 3.0 35 106 09/13/17 22:24 104 18 143/78 (99) 96 BiPAP 35 09/13/17 21:45 108 96 35 09/13/17 21:40 107 18 143/82 (102) 97 BiPAP 35 09/13/17 21:22 107 16 152/86 (108) 95 BiPAP 35 09/13/17 21:16 107 22 98 Nasal Cannula 3.0 09/13/17 20:46 36.8 107 24 93/57 (69) 92 Nasal Cannula 3.0 09/13/17 20:00 BiPAP 35 09/13/17 17:35 107 98 35 09/13/17 17:23 103 22 98 Nasal Cannula 3.0 09/13/17 16:00 Nasal Cannula 4.0 09/13/17 15:44 36.8 103 20 127/87 (100) 92 Nasal Cannula 2.0 09/13/17 12:00 BiPAP 09/13/17 11:21 36.5 103 22 92/61 (71) 91 Nasal Cannula 2.0 Laboratory Results: Last 24 Hours Test 09/13/17 11:17 09/13/17 16:31 09/13/17 21:08 09/14/17 05:50 Bedside Glucose 145 mg/dl 94 mg/dl 93 mg/dl White Blood Count 10.25 K/uL Red Blood Count 2.93 M/uL Hemoglobin 8.3 g/dL Hematocrit 26.6 % Mean Corpuscular Volume 90.8 fL Mean Corpuscular Hemoglobin 28.3 pg Mean Corpuscular Hemoglobin Concent 31.2 g/dl RDW Standard Deviation 45.1 fL RDW Coefficient of Variation 13.5 % Platelet Count 394 K/uL Mean Platelet Volume 9.2 fL Sodium Level 136 mmol/L Potassium Level 4.4 mmol/L Chloride Level 105 mmol/L Carbon Dioxide Level 25 mmol/L Anion Gap 6.0 mmol/L Blood Urea Nitrogen 65 mg/dl Creatinine 1.97 mg/dl Est Creatinine Clear Calc Drug Dose 40.1 ml/min Estimated GFR () 32.1 Estimated GFR (Non- 27.7 BUN/Creatinine Ratio 32.7 Random Glucose 59 mg/dl Calcium Level 8.9 mg/dl Random Vancomycin Level 22.3 mcg/ml Test 09/14/17 06:18 09/14/17 06:20 09/14/17 06:41 Bedside Glucose 66 mg/dl 67 mg/dl 87 mg/dl
[2017-09-14] MEDS ORDERED: METHYLPREDNISOLONE 40 MG in SYRINGE 0 ML IV STA (10:32)
--- NOTE | 2017-09-14 12:25 | Cardiology Follow-Up ---
Subjective Subjective Date of Service: Sep 14, 2017. Pt evaluation today including: conversation w/ patient, physical exam, chart review, lab review, review of studies, review of inpatient medication list Additional Details: Pt seen and examined, states that she feels the same. Denies cp, sob, palpitations, lightheadedness or dizziness. States that she continues to feel fatigued. Tele reviewed: sinus rhythm/sinus tach. Problem List Medical Problems: (1) Acute bronchitis Status: Acute (2) Acute chest pain Status: Acute (3) Anemia Status: Acute (4) Enlarged lymph node Status: Acute (5) Hypoxia Status: Acute (6) Neck pain on right side Status: Acute (7) Pulmonary edema Status: Acute Review of Systems Respiratory: + cough, + shortness of breath, + dyspnea on exertion Cardiac: No see HPI, No chest pain, No orthopnea, No PND, No edema, No claudication, No palpitations, No problem reported Objective Vital Signs Last Vital Signs Documentation Date Time Temp Pulse Resp B/P (MAP) Pulse Ox O2 Delivery O2 Flow Rate FiO2 09/14/17 11:30 36.7 102 20 113/65 (81) 98 Nasal Cannula 4.0 09/14/17 00:15 35 Physical Exam: General Appearance: WD/WN, no apparent distress, + obese Eyes: bilateral eyes normal inspection, bilateral eyes PERRL, bilateral eyes EOMI ENT: normal ENT inspection, hearing grossly normal, pharynx normal Neck: supple, no adenopathy, thyroid normal, no JVD, no carotid bruits, trachea midline Respiratory/Chest: chest non-tender, no respiratory distress, no accessory muscle use, + rhonchi Cardiovascular: regular rate, rhythm, + tachycardia, + gallop/S4 (3/6 holosystolic. 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 cough/sob stable no role for diuretics at this time 2. cardiomyopathy known ischemic cardiomyopathy with EF on 08/28 outpatient echo found EF to be 37% and has remained stable unclear if secondary to underlying stressors: emotional, lymphoma, possible infection no sign of active ischemia no role for cath at this time especially given renal function keerthi obviously held cont evidence based beta isael: coreg unable to start spironolactone or Entresto given renal function unfortunately, do not believe that heart function can be further improved at this point discussed impaired function with patient along with need for chemo and possibility of worsening heart function she states that she understands, is accepting of the risk and wishes to proceed with chemo as per oncology do not see any benefit in delaying chemo therapy from cardiac standpoint 3. acute renal failure improving ok to d/c tele from cardiac standpoint.
[2017-09-14] MEDS: IPRATROPIUM BROMIDE NEB SOLN 0.02% 2.5 ML VIAL INH PRN (12:54)
[2017-09-14] MEDS: LEVALBUTEROL 0.63MG/3 ML NEB INH PRN (12:54)
[2017-09-14] MEDS: VANCOMYCIN INJ 1,750 MG in SODIUM CHLORIDE 0.9% 500ML 500 ML IV SCH (13:17)
[2017-09-14] MEDS ORDERED: LORAZEPAM 2 MG/ML 1 ML VIAL IV PRN ×2 (14:45→17:30)
[2017-09-14] MEDS ORDERED: MoRPHine SULFATE 2 MG/ML CARP IV ONE (15:45)
[2017-09-14] MEDS ORDERED: RAPID SEQUENCE INDUCTION BAG ONE (16:50)
[2017-09-14] MEDS ORDERED: PROPOFOL IV EMULSION 10 MG/ML 100 ML VIAL IV ONE (16:59)
[2017-09-14] MEDS ORDERED: FAMOTIDINE IV INJ 20 MG in DEXTROSE 5% 100ML 100 ML IV SCH (17:30)
[2017-09-14] MEDS ORDERED: MoRPHine SULFATE 2 MG/ML CARP IV PRN (17:30)
--- NOTE | 2017-09-14 17:37 | DIAGNOSTIC IMAGING REPORT ---
CHEST ONE VIEW PORTABLE HISTORY: 57 years-old Female congestion acute respiratory failure. Congestion. COMPARISON: Chest radiograph 09/13/2017. TECHNIQUE: Portable erect AP view the chest FINDINGS: Cardiac silhouette is moderately enlarged. Left subclavian [id number] catheter is again seen with distal tip terminating in the region of the mid SVC, unchanged. Endotracheal tube overlies the midline and terminating 3.7 cm superior to the nhung. An enteric tube has been placed with distal tip terminating within the region of the proximal gastric lumen. Cardiomegaly redemonstrated with pulmonary vascular congestion and bilateral perihilar and bibasilar predominant mixed interstitial and alveolar opacities again suggesting pulmonary edema. There are hazy bibasilar densities with small bilateral pleural effusions. Slightly improved aeration of the right lung base. No pneumothorax. Bones are grossly intact. There is fusion hardware of the thoracolumbar spine. Surgical clips project of the right upper abdomen. IMPRESSION: 1. Status post intubation with endotracheal tube overlying the midline, 3.7 cm superior to the nhung. 2. Enteric tube terminates below the diaphragm within the region of the proximal gastric lumen. 3. Cardiomegaly with persistent pulmonary edema pattern, small bilateral pleural effusions and bibasilar consolidative opacities. The above report was generated using voice recognition software. It may contain grammatical, syntax or spelling errors. Electronically signed by: Demetrio Gaines M.D. 09/14/2017 5:35 PM Dictated Date/Time: 09/14/2017 5:32 PM
--- NOTE | 2017-09-14 17:45 | Critical Care Consultation ---
Critical Care Consultation Date of Consultation: Sep 14, 2017. Attending Physician: Terry Joens MD Reason for Consultation: Respiratory Failure History of Present Illness She was admitted with CHF and Pneumonia. Underlying B-cell lymphoma noted. Being treated with antibiotics and steroids but increased bronchospasm and stridor noted. She was moved to the ICU. Clearly in respiratory distress. Speaking only in short sentences. Paradoxical respiratory pattern noted. She required immediate respiratory assistance. Past Medical/Surgical History -Cardiomyopathy--has had stenting in the past. -Lymphoma--B-cell -DM -Obesity Family History Heart disease Social History Smoking Status: Never Smoker Drug Use: none Marital Status: Housing Status: lives with family Occupation Status: employed Allergies Coded Allergies: Adhesives (Verified Allergy, Unknown, RASH, 09/09/17) Home Medications Scheduled Amlodipine (Norvasc), 2.5 MG PO DAILY Ascorbic Acid (Vitamin C), 500 MG PO TID Aspirin (Aspirin 81), 81 MG PO DAILY Atorvastatin Calcium (Lipitor), 80 MG PO DAILY Buspirone Hcl (Buspirone Hcl), 2 TAB PO BID Carvedilol (Coreg), 1 TAB PO BID Clopidogrel Bisulfate (Clopidogrel), 75 MG PO QAM Fenofibrate Micronized (Tricor), 67 MG PO DAILY Furosemide (Lasix), 40 MG PO DAILY Gabapentin (Neurontin), 300 MG PO TID Glipizide (Glucotrol), 2 TAB PO BID Insulin Detemir (Levemir Flextouch), 10 HS Lisinopril (Prinivil), 5 MG PO DAILY Metformin Hcl (Glucophage), 1,000 MG PO BID Trazodone Hcl (Desyrel), 50 MG PO HS Venlafaxine Hcl (Effexor Xr), 1 CAP PO DAILY Venlafaxine Hcl (Effexor Xr), 1 CAP PO DAILY Scheduled PRN Albuterol Hfa (Ventolin Hfa), 1-2 PUFFS INH Q4 PRN for SOB/Wheezing Hydrocodone/Acetaminophen 5MG/325MG ([place] 5MG/325MG), 2 TABLET PO Q6 PRN for Pain Hydroxyzine Pamoate (Vistaril), 1 CAP PO Q6H PRN for Anxiety/Agitation Ketorolac (Toradol), 10 MG PO UD PRN for Pain Lorazepam (Lorazepam), 0.5 MG PO Q6H PRN for Anxiety/Agitation Nitroglycerin (Nitrostat), 0.4 MG UT UD PRN for Chest Pain Current Inpatient Medications Current Inpatient Medications Medications (Trade) Dose Ordered Sig/Chantale Route Start Time Stop Time Status Last Admin Dose Admin Acetaminophen/ Hydrocodone Bitart ([place] 5/325 Tab) 1 tab Q6 PRN PO 09/10/17 00:15 09/24/17 00:14 09/14/17 07:39 1 TAB Insulin Aspart (novoLOG ASPART) SLIDING SCALE If C... ACHS SC 09/10/17 03:45 10/10/17 03:44 Future hold 09/14/17 13:18 6 UNITS Glucose (Glucose 40% Gel) 15-30 GRAMS 15 GRAMS... UD PRN PO 09/10/17 01:45 10/10/17 01:44 Glucose (Glucose Chew Tab) 4-8 Tablets 4 Tabl... UD PRN PO 09/10/17 01:45 10/10/17 01:44 Dextrose (Dextrose 50% 50ML Syringe) 25-50ML OF 50% DW IV FOR... UD PRN IV 09/10/17 01:45 10/10/17 01:44 Glucagon (Glucagon Inj) 1 mg UD PRN SQ 09/10/17 01:45 10/10/17 01:44 Miscellaneous Information (Consult Glycemic Management Pharmacy) 1 ea UD PRN N/A 09/10/17 06:34 10/10/17 06:33 Ipratropium Bliss (Atrovent 0.02% 0.5MG/2.5ML Neb) 0.5 mg Q4H PRN INH 09/10/17 06:30 10/10/17 06:29 09/14/17 12:54 0.5 MG Levalbuterol (Xopenex 0.63 Mg/ 3 Ml Neb) 0.63 mg Q4H PRN INH 09/10/17 06:30 10/10/17 06:29 09/14/17 12:54 0.63 MG Hydrocodone Bit/ Homatropine Methylb (Hycodan Syrup) 5 ml Q6 PRN PO 09/10/17 13:15 09/24/17 13:14 09/13/17 08:10 5 ML Heparin Sodium (Porcine) (Heparin 100 Unit/ml 5ml Flush) 5 ml PRN PRN IV 09/11/17 01:15 10/11/17 01:14 09/13/17 06:20 5 ML Hydromorphone HCl (Dilaudid Inj) 0.5 mg Q4 PRN IV 09/11/17 14:00 09/25/17 13:59 09/14/17 12:43 0.5 MG Heparin Sodium (Porcine) (Heparin Sq 5000 Unit/0.5ml) 5,000 unit Q8 SC 09/12/17 06:00 10/12/17 05:59 09/14/17 14:54 5,000 UNIT Vancomycin HCl (Consult) 1 ea UD PRN N/A 09/11/17 18:30 10/11/17 18:29 Piperacillin Sod/ Tazobactam Sod (Consult) 1 ea UD PRN N/A 09/11/17 18:30 10/11/17 18:29 Mupirocin (Bactroban 2% Oint) 1 appln BID EXT 09/12/17 09:00 09/17/17 08:59 09/14/17 07:45 1 APPLN Vancomycin HCl 1750 mg/Sodium Chloride 535 ml @ 200 mls/hr DAILY@1200 IV 09/14/17 12:00 09/21/17 11:59 09/14/17 13:17 200 MLS/HR Piperacillin Sod/ Tazobactam Sod 4.5 gm/Dextrose 120 ml @ 30 mls/hr Q8H IV 09/14/17 10:00 09/17/17 23:59 09/14/17 09:59 30 MLS/HR Insulin Aspart (novoLOG ASPART) SLIDING SCALE If C... 0000,0400 SC 09/15/17 00:00 10/15/17 00:00 Insulin Detemir (Levemir Flexpen/ FlexTouch) SEE PROTOCOL TODAY@1800 SC 09/14/17 18:00 09/14/17 18:01 Morphine Sulfate (MoRPHine SULFATE INJ) 2 mg Q1H PRN IV 09/14/17 17:30 09/28/17 17:29 UNV Lorazepam (Ativan Inj) 1 mg Q2H PRN IV 09/14/17 17:30 10/14/17 17:29 UNV Propofol (Diprivan Iv Emulsion 100ml Vial) 10 dose UD STAT IV 09/14/17 17:22 09/14/17 17:23 UNV Famotidine 20 mg/ Dextrose 102 ml @ 200 mls/hr Q12H IV 09/14/17 17:30 10/14/17 17:29 UNV Methylprednisolone Sodium Succinate 40 mg/Syringe 0.64 ml @ 1.5 mls/min Q6 IV 09/14/17 18:00 10/14/17 17:59 UNV Review of Systems Obvious respiratory distress. No clear target pain. No new focal neuro issues suggested. Somewhat lethargic which appears related to the respiratory distress. Physical Exam Date Time Temp Pulse Resp B/P (MAP) Pulse Ox O2 Delivery O2 Flow Rate FiO2 09/14/17 16:26 36.7 108 28 136/78 (97) 93 Oxymask 5.0 09/14/17 12:54 101 99 35 09/14/17 12:54 101 15 99 BiPAP/CPAP 35 09/14/17 12:05 Nasal Cannula 2.0 09/14/17 11:30 36.7 102 20 113/65 (81) 98 Nasal Cannula 4.0 09/14/17 08:05 Nasal Cannula 2.0 09/14/17 07:08 36.7 104 20 130/94 (106) 94 09/14/17 04:00 Nasal Cannula 4.0 09/14/17 00:42 37.4 73 20 126/77 (93) 92 Nasal Cannula 4.0 104 09/14/17 00:15 BiPAP 35 09/13/17 23:56 37.1 106 17 117/76 (90) 97 CPAP 3.0 35 106 09/13/17 22:24 104 18 143/78 (99) 96 BiPAP 35 09/13/17 21:45 108 96 35 09/13/17 21:40 107 18 143/82 (102) 97 BiPAP 35 09/13/17 21:22 107 16 152/86 (108) 95 BiPAP 35 09/13/17 21:16 107 22 98 Nasal Cannula 3.0 09/13/17 20:46 36.8 107 24 93/57 (69) 92 Nasal Cannula 3.0 09/13/17 20:00 BiPAP 35 09/13/17 17:35 107 98 35 Gen--respiratory distress HEENT----some stridor noted with ascultation Respiratory--exchange is fair at best--wheezing noted in all solo Cardio--tachy--no loud murmur GI--rotund--bowel sounds Neuro--no focal target issues Derm--no active lesions Musculo--no target Psych--lethargic Laboratory Results Last 24 Hours Test 09/13/17 21:08 09/14/17 05:50 09/14/17 06:18 09/14/17 06:20 Bedside Glucose 93 mg/dl 66 mg/dl 67 mg/dl White Blood Count 10.25 K/uL Red Blood Count 2.93 M/uL Hemoglobin 8.3 g/dL Hematocrit 26.6 % Mean Corpuscular Volume 90.8 fL Mean Corpuscular Hemoglobin 28.3 pg Mean Corpuscular Hemoglobin Concent 31.2 g/dl RDW Standard Deviation 45.1 fL RDW Coefficient of Variation 13.5 % Platelet Count 394 K/uL Mean Platelet Volume 9.2 fL Sodium Level 136 mmol/L Potassium Level 4.4 mmol/L Chloride Level 105 mmol/L Carbon Dioxide Level 25 mmol/L Anion Gap 6.0 mmol/L Blood Urea Nitrogen 65 mg/dl Creatinine 1.97 mg/dl Est Creatinine Clear Calc Drug Dose 40.1 ml/min Estimated GFR () 32.1 Estimated GFR (Non- 27.7 BUN/Creatinine Ratio 32.7 Random Glucose 59 mg/dl Calcium Level 8.9 mg/dl Random Vancomycin Level 22.3 mcg/ml Test 09/14/17 06:41 09/14/17 11:28 09/14/17 16:26 Bedside Glucose 87 mg/dl 158 mg/dl 187 mg/dl Assessment & Plan Respiratory Failure--multifactorial/stridor 1. Respiratory --ETT and ventilation. Steroids/Antibiotics and bronchodilators ---Consider dose with loop pending ongoing evaluation 2. Cardio--metoprolol and loop. Cardiac input 3. GI--H2 and feed 4. Endo--coverage in place 5. Heme--onco input in place 6. F/E/N--Renal--ongoing evaluation per renal.
[2017-09-14] MEDS ORDERED: INSULIN DETEMIR FLEXPEN/FLEX TOUCH 100 UNITS/ML 3ML SC SCH ×3 (18:00→21:00)
--- NOTE | 2017-09-14 18:00 | Progress Note ---
Internal Med Progress Note Date of Service: Sep 14, 2017. Provider Documentation: SUBJECTIVE: last night had an episode of sob in the morning was doing some what better but later in the day was getting more sob having labored breathing not tolerating bipap transferred to ICU and currently s/p intubation afebrile hemodynamics stable OBJECTIVE: Vital Signs-as noted below Exam: General-alert and oriented. Resp distress ENT-normal hearing Neck-no neck masses. Has stridor Lungs- cta b/l accessory muscle use present no wheezing bibasilar crackles present Heart-s1 and s2 heard regular rate and rhythm no murmurs Abdomen-soft bowel sounds present no tenderness present no distension Extremities- no erythema no edema Neuro-alert and oriented moves extremities Lab data as noted below. ASSESSMENT & PLAN: 57F with hx of obesity, DANGELO, CHF with EF 35-40%, recent diagnosis of B cell lymphoma presented with ongoing cough and worsening sob. CXR and Ct scan showed no PE but b/l pul.edema and small b/l pleural effusions. Received iv abx and dose of iv Lasix. Could not give Lasix next day as patient was hypotensive. Second day renal function worsened. Received some fluid boluses for hypotension.IV abx broadened to Zosyn and iv vanco and continued po azithromycin. Next day BP improved but CR worsened to 3.3 .Seen by nephrology and attributes ARF to contrast induced nephropathy. Seen by pulmonary and cardiology. Cannot give Lasix secondary to ARF. Cr improved to 1.9 today. BP stabilized and back on home BP meds except lisinopril which is held for ARF. Requiring bipap while seeping( Was using only nocturnal o2 at home). But today went into resp distress and was tachypneic and was not tolerating bipap. Transferred to ICU and s/p intubation. Close monitor in ICU. During the hospitalization also seen by heme/oncology and plans to start chemo once patient is stable.Follow labs, abg and cxr. To complete 7day course of abx.On iv steroids for striodor as per pulmonary. CT soft neck no obvious masses. presented with Worsening Dyspnea Pulmonary edema on ct scan Acute systolic CHF exacerbation? hx of DANGELO Has cough Received Lasix 40mg IV and Levaquin, Vanco, Cefepime given in the ER repeat cxr next day slight worsening of pul congestion RECENT ECHO SHOWED ef 37% was placed on lasix 40mg iv bid repeat echo shows ef 35-40% cardiology on board renal function worsened. Lasix stopped requiring bipap at night( At home could not tolerated mask for dangelo) today went into acute resp failure Acute Resp failure 09/14/17 vent dependent resp failure mostly from acute systolic chf underlying DANGELO B cell lymphoma and possible pneumonia could not give Lasix because of renal failure already on iv abx not able to tolerated bipap tachypneic transferred to ICU and s/p intubation close monitor in ICU Pneumonia? on presentation initially empirically started on Rocephin and azithromycin #4 Rocephin stopped and added Zosyn and vanco 09/11/17 #3 mrsa swab positive Pulmonary on board to continue current abx to complete 7 day course ARF after Lasix? contrast induced? received gentle fluids but stopped as patient complained of sob cr peaked to 3.3 and cr 1.9 today nephrology on board and thinks mostly contrast induced which she received for CTA chest f/u labs Elevated troponin mostly NSTEMI from demand ischemia trending down f/u echo- no change from previous echo Elevated WBC Received Levaquin, Cefepime and Vanco has cough empiric abx as above f/u cx- no growth till date Stridor ct soft neck no obvious compressing mass pulmonary started on iv steroids DM type 2 Last HBA1C was 8.6 on 06/19 Hyperglycemia pharmacy on board hba1c 11.8 will monitor while on steroids HTN on amlodipine, coreg, holding lisinopril for arf will monitor B Cell Lymphoma Plan to start chemo treatment Continue follow with oncology Heme/onco consulted ct soft neck no compressing lymphadenopathy mild elevation of uric acid mostly from dehydration as per nephrology Heme/onco contemplating starting chemo this admission once ARF resolves. Currently resp status worsened CAD Continue coreg/ asa, plavix and statin Cough B. Pertussis negative Influenza neg abx as above Hycodan prn. DVT px on Lovenox CODE STATUS Ful code DISPOSITION transferred to icu today close monitor Vital Signs: Date Time Temp Pulse Resp B/P (MAP) Pulse Ox O2 Delivery O2 Flow Rate FiO2 09/14/17 18:00 36.6 95 16 106/68 (81) 98 Mechanical Ventilator 50.0 09/14/17 18:00 50 09/14/17 17:35 50 09/14/17 16:26 36.7 108 28 136/78 (97) 93 Oxymask 5.0 09/14/17 16:00 92 Nasal Cannula 5.0 09/14/17 12:54 101 99 35 09/14/17 12:54 101 15 99 BiPAP/CPAP 35 09/14/17 12:05 Nasal Cannula 2.0 09/14/17 11:30 36.7 102 20 113/65 (81) 98 Nasal Cannula 4.0 09/14/17 08:05 Nasal Cannula 2.0 09/14/17 07:08 36.7 104 20 130/94 (106) 94 09/14/17 04:00 Nasal Cannula 4.0 09/14/17 00:42 37.4 73 20 126/77 (93) 92 Nasal Cannula 4.0 104 09/14/17 00:15 BiPAP 35 09/13/17 23:56 37.1 106 17 117/76 (90) 97 CPAP 3.0 35 106 09/13/17 22:24 104 18 143/78 (99) 96 BiPAP 35 09/13/17 21:45 108 96 35 09/13/17 21:40 107 18 143/82 (102) 97 BiPAP 35 09/13/17 21:22 107 16 152/86 (108) 95 BiPAP 35 09/13/17 21:16 107 22 98 Nasal Cannula 3.0 09/13/17 20:46 36.8 107 24 93/57 (69) 92 Nasal Cannula 3.0 09/13/17 20:00 BiPAP 35 Lab Results: Results Past 24 Hours Test 09/13/17 21:08 09/14/17 05:50 09/14/17 06:18 09/14/17 06:20 Range/Units Bedside Glucose 93 66 67 70-90 mg/dl White Blood Count 10.25 4.8-10.8 K/uL Red Blood Count 2.93 4.2-5.4 M/uL Hemoglobin 8.3 12.0-16.0 g/dL Hematocrit 26.6 37-47 % Mean Corpuscular Volume 90.8 80-100 fL Mean Corpuscular Hemoglobin 28.3 25-34 pg Mean Corpuscular Hemoglobin Concent 31.2 32-36 g/dl RDW Standard Deviation 45.1 36.4-46.3 fL RDW Coefficient of Variation 13.5 11.5-14.5 % Platelet Count 394 130-400 K/uL Mean Platelet Volume 9.2 7.4-10.4 fL Sodium Level 136 136-145 mmol/L Potassium Level 4.4 3.5-5.1 mmol/L Chloride Level 105 98-107 mmol/L Carbon Dioxide Level 25 21-32 mmol/L Anion Gap 6.0 3-11 mmol/L Blood Urea Nitrogen 65 7-18 mg/dl Creatinine 1.97 0.60-1.20 mg/dl Est Creatinine Clear Calc Drug Dose 40.1 ml/min Estimated GFR () 32.1 Estimated GFR (Non- 27.7 BUN/Creatinine Ratio 32.7 10-20 Random Glucose 59 70-99 mg/dl Calcium Level 8.9 8.5-10.1 mg/dl Random Vancomycin Level 22.3 mcg/ml Test 09/14/17 06:41 09/14/17 11:28 09/14/17 16:26 09/14/17 18:11 Range/Units Bedside Glucose 87 158 187 70-90 mg/dl Blood Gas Sample Site L Radial Bedside Blood Gas pH (LAB) 7.24 7.35-7.45 Bedside Blood Gas pCO2 (LAB) 53 35-46 mmHg Bedside Blood Gas pO2 (LAB) 59 80-95 mmHg Bedside Blood Gas HCO3 (LAB) 23 19-24 meq/L Bedside Blood Gas Total CO2 25 24-31 mEq/l Bedside Blood Gas Base Excess (LAB) -4.0 -9-1.8 meq/L Bedside Blood Gas O2 Saturation 85.0 90-95 % Rashad Test Pass Oxygen Delivery Device Ventilator Bedside Oxygen Rate (breaths/min) 12 Blood Gas Minute Ventilation 8.1 Bedside FiO2 50 % Blood Gas Tidal Volume 600 Blood Gas PEEP 5 Test 09/14/17 18:30 09/14/17 18:32 Range/Units White Blood Count 9.01 4.8-10.8 K/uL Red Blood Count 2.78 4.2-5.4 M/uL Hemoglobin 7.9 12.0-16.0 g/dL Hematocrit 25.2 37-47 % Mean Corpuscular Volume 90.6 80-100 fL Mean Corpuscular Hemoglobin 28.4 25-34 pg Mean Corpuscular Hemoglobin Concent 31.3 32-36 g/dl Platelet Count 382 130-400 K/uL Mean Platelet Volume 8.9 7.4-10.4 fL Neutrophils (%) (Auto) 95.1 % Lymphocytes (%) (Auto) 2.7 % Monocytes (%) (Auto) 1.7 % Eosinophils (%) (Auto) 0.0 % Basophils (%) (Auto) 0.1 % Neutrophils # (Auto) 8.57 1.4-6.5 K/uL Lymphocytes # (Auto) 0.24 1.2-3.4 K/uL Monocytes # (Auto) 0.15 0.11-0.59 K/uL Eosinophils # (Auto) 0.00 0-0.5 K/uL Basophils # (Auto) 0.01 0-0.2 K/uL RDW Standard Deviation 44.2 36.4-46.3 fL RDW Coefficient of Variation 13.4 11.5-14.5 % Immature Granulocyte % (Auto) 0.4 % Immature Granulocyte # (Auto) 0.04 0.00-0.02 K/uL Polychromasia 1+ Spherocytes 1+ Sodium Level 138 136-145 mmol/L Chloride Level 105 98-107 mmol/L Carbon Dioxide Level 24 21-32 mmol/L Anion Gap 9.0 3-11 mmol/L Blood Urea Nitrogen 58 7-18 mg/dl Creatinine 1.81 0.60-1.20 mg/dl Est Creatinine Clear Calc Drug Dose 43.7 ml/min Estimated GFR () 35.6 Estimated GFR (Non- 30.7 BUN/Creatinine Ratio 32.2 10-20 Random Glucose 203 70-99 mg/dl Calcium Level 8.3 8.5-10.1 mg/dl Troponin I 0.058 0-0.045 ng/ml Bedside Glucose 221 70-90 mg/dl Microbiology Results 09/14/17 MRSA DNA Surveillance Screen - Final, Complete Specimen Positive for MRSA by DNA Probe 09/14/17 Urine Culture, Received Pending
[2017-09-14] MEDS ORDERED: FUROSEMIDE INJ 40 MG in SYRINGE 0 ML IV ONE (18:15)
[2017-09-14 18:28] LABS: ISTAT ALLEN TEST Pass; ISTAT ARTERIAL BLOOD GAS HCO3 23 meq/L (19-24); ISTAT ARTERIAL BLOOD GAS PCO2 53 mmHg (35-46); ISTAT ARTERIAL BLOOD GAS PO2 59 mmHg (80-95); ISTAT ARTERIAL BLOOD GAS pH 7.24 (7.35-7.45); ISTAT CARBON DIOXIDE 25 mEq/l (24-31); ISTAT DELIVERY SYSTEM Ventilator; ISTAT FIO2 50 %; ISTAT PEEP 5; ISTAT RATE 12; ISTAT SITE L Radial; VE 8.1; Vt 600
[2017-09-14 18:40] LABS: BASO % 0.1 %; BASO ABS # 0.01 K/uL (0-0.2); HEMATOCRIT 25.2 % (37-47); IG% 0.4 %; LYMPH % 2.7 %; LYMPH ABS # 0.24 K/uL (1.2-3.4); MEAN CELL VOLUME 90.6 fL (80-100); MEAN CORPUSCULAR HEMOGLOBIN 28.4 pg (25-34); MEAN PLATELET VOLUME 8.9 fL (7.4-10.4); MONO % 1.7 %; NEUT % 95.1 %; PLATELET COUNT 382 K/uL (130-400); RED BLOOD COUNT 2.78 M/uL (4.2-5.4); WHITE BLOOD COUNT 9.01 K/uL (4.8-10.8)
[2017-09-14] MEDS ORDERED: LACTATED RINGER'S 1000ML 1,000 ML IV SCH (18:45)
[2017-09-14 18:46] LABS: MEAN CORPUSCULAR HGB CONC 31.3 g/dl (32-36)
[2017-09-14 19:05] LABS: BUN/CREATININE RATIO 32.2 (10-20); CALCIUM 8.3 mg/dl (8.5-10.1); COMPLETE YES; CREATININE 1.81 mg/dl (0.60-1.20); POLYCHROMASIA 1+; SPHEROCYTE 1+
[2017-09-14 19:30] LABS: POTASSIUM 5.8 mmol/L (3.5-5.1)
[2017-09-14] MEDS: AZITHROMYCIN IV 500 MG in DEXTROSE 5% 250ML 250 ML IV SCH (19:57)
[2017-09-14] MEDS: FAMOTIDINE IV INJ 20 MG in SYRINGE 3 ML IV SCH (19:57)
[2017-09-14] MEDS: METOPROLOL TARTRATE 1 MG/ML VIAL IV. SCH (19:58)
[2017-09-14] MEDS: METHYLPREDNISOLONE IV 40 MG in SYRINGE 0 ML IV SCH (19:58)
[2017-09-14] MEDS: PROPOFOL IV EMULSION 10 MG/ML 100 ML VIAL IV PRN (20:47)
[2017-09-14] MEDS ORDERED: INSULIN ASPART 100 UNITS/ML 3 ML PEN SC SCH (21:00)
[2017-09-14] MEDS: IPRATROPIUM BROMIDE HFA INHALER INH SCH (21:00)
[2017-09-14] MEDS: LEValbuterol HFA 15GM INHALER INH SCH (21:00)
[2017-09-14] MEDS: HEPARIN SOD 5000 UNIT/0.5 ML CARP SQ SCH (21:38)
[2017-09-14 23:04] LABS: HEMATOCRIT 24.6 % (37-47)
[2017-09-14] MEDS ORDERED: INSULIN IV INFUSION PROTOCOL STA (23:24)
[2017-09-14 23:28] LABS: BUN/CREATININE RATIO 34.2 (10-20); CALCIUM 8.4 mg/dl (8.5-10.1); CREATININE 1.59 mg/dl (0.60-1.20); MAGNESIUM 2.5 mg/dl (1.8-2.4); POTASSIUM 4.5 mmol/L (3.5-5.1)
[2017-09-14] MEDS ORDERED: INSULIN PROTOCOL GOAL RANGE ONE (23:30)
[2017-09-14] MEDS ORDERED: SEVERE STRESS LEVEL ONE (23:30)
[2017-09-14] MEDS ORDERED: NovoLIN-R BOLUS FROM BAG IV ONE (23:45)
[2017-09-14] MEDS: INSULIN REGULAR 250 UNITS in SODIUM CHLORIDE 0.9% 250ML 250 ML IV SCH (23:52)
[2017-09-15] VITALS (19 sets, daily range): BP systolic 86–150; BP diastolic 60–83; PULSE 67–108; TEMP 36.6–37.4; O2SAT 94–100
[2017-09-15] MEDS ORDERED: INSULIN ASPART 100 UNITS/ML 3 ML PEN SC SCH
[2017-09-15] MEDS: METHYLPREDNISOLONE IV 40 MG in SYRINGE 0 ML IV SCH ×4 (00:02→17:08)
[2017-09-15] MEDS: IPRATROPIUM BROMIDE HFA INHALER INH SCH ×4 (01:35→19:57)
[2017-09-15] MEDS: LEValbuterol HFA 15GM INHALER INH SCH ×4 (01:36→19:58)
[2017-09-15] MEDS: PIPERACILL/TAZOBAC IV 4.5 GM in DEXTROSE 5% 100ML IV SCH ×3 (02:23→17:10)
[2017-09-15] MEDS: PROPOFOL IV EMULSION 10 MG/ML 100 ML VIAL IV PRN ×3 (02:25→11:10)
[2017-09-15 05:41] LABS: BASO % 0.1 %; BASO ABS # 0.01 K/uL (0-0.2); HEMATOCRIT 24.3 % (37-47); IG% 0.1 %; LYMPH % 7.2 %; LYMPH ABS # 0.51 K/uL (1.2-3.4); MEAN CELL VOLUME 87.7 fL (80-100); MEAN CORPUSCULAR HEMOGLOBIN 28.5 pg (25-34); MEAN CORPUSCULAR HGB CONC 32.5 g/dl (32-36); MEAN PLATELET VOLUME 9.2 fL (7.4-10.4); MONO % 4.8 %; NEUT % 87.8 %; PLATELET COUNT 398 K/uL (130-400); RED BLOOD COUNT 2.77 M/uL (4.2-5.4); WHITE BLOOD COUNT 7.09 K/uL (4.8-10.8)
[2017-09-15 05:44] LABS: ISTAT ALLEN TEST Pass; ISTAT ARTERIAL BLOOD GAS HCO3 25 meq/L (19-24); ISTAT ARTERIAL BLOOD GAS PCO2 30 mmHg (35-46); ISTAT ARTERIAL BLOOD GAS PO2 179 mmHg (80-95); ISTAT ARTERIAL BLOOD GAS pH 7.53 (7.35-7.45); ISTAT CARBON DIOXIDE 26 mEq/l (24-31); ISTAT DELIVERY SYSTEM Ventilator; ISTAT FIO2 60 %; ISTAT PEEP 5; ISTAT RATE 16; ISTAT SITE L Radial; VE 8.7; Vt 600
[2017-09-15] MEDS: METOPROLOL TARTRATE 1 MG/ML VIAL IV. SCH ×5 (05:44→23:30)
[2017-09-15 06:15] LABS: BUN/CREATININE RATIO 34.6 (10-20); CALCIUM 8.6 mg/dl (8.5-10.1); CREATININE 1.55 mg/dl (0.60-1.20); MAGNESIUM 2.4 mg/dl (1.8-2.4); PHOSPHORUS 2.8 mg/dl (2.5-4.9); POTASSIUM 4.1 mmol/L (3.5-5.1)
[2017-09-15 06:18] LABS: COMPLETE YES
--- NOTE | 2017-09-15 06:36 | Nephrology Progress Note ---
Nephrology Progress Note Date of Service: Sep 15, 2017. Subjective 57 yo female with large b cell lymphoma who has not begun treatment, pt with contrast induced nephrotoxicity. yesterday, pt became more confused and was intubated for airway protection. has some thin secretions. sedated. Objective Date Time Temp Pulse Resp B/P (MAP) Pulse Ox O2 Delivery O2 Flow Rate FiO2 09/15/17 05:30 35 09/15/17 04:01 77 16 109/66 (77) 100 09/15/17 04:00 36.6 09/15/17 04:00 60 09/15/17 04:00 Mechanical Ventilator 60 09/15/17 03:01 76 16 103/67 (76) 100 09/15/17 02:01 74 16 99/68 (76) 100 09/15/17 01:39 60 09/15/17 01:01 76 16 106/67 (83) 100 09/15/17 00:01 78 16 103/72 (88) 100 09/15/17 00:00 Mechanical Ventilator 60 09/15/17 00:00 60 09/15/17 00:00 36.6 09/14/17 23:08 60 09/14/17 23:01 77 16 103/70 (81) 100 09/14/17 22:01 80 16 100/70 (76) 100 09/14/17 21:12 60 09/14/17 21:01 84 16 104/67 (79) 100 09/14/17 20:08 85 16 108/70 (80) 100 09/14/17 20:00 60 09/14/17 20:00 36.6 09/14/17 20:00 Mechanical Ventilator 60 09/14/17 18:00 36.6 95 16 106/68 (81) 98 Mechanical Ventilator 50.0 09/14/17 18:00 50 09/14/17 17:35 50 09/14/17 16:26 36.7 108 28 136/78 (97) 93 Oxymask 5.0 09/14/17 16:00 92 Nasal Cannula 5.0 09/14/17 12:54 101 99 35 09/14/17 12:54 101 15 99 BiPAP/CPAP 35 09/14/17 12:05 Nasal Cannula 2.0 09/14/17 11:30 36.7 102 20 113/65 (81) 98 Nasal Cannula 4.0 09/14/17 08:05 Nasal Cannula 2.0 09/14/17 07:08 36.7 104 20 130/94 (106) 94 Physical Exam: [id number] Eyes-no scleral icterus ENT-mmm/intubated Neck-supple Lungs-+wheeze Heart-regular Abdomen-bs+ s/nt/nd Extremities-no c/c/e Neuro-nonfocal Current Inpatient Medications Medications (Trade) Dose Ordered Sig/Chantale Route Start Time Stop Time Status Last Admin Dose Admin Glucose (Glucose 40% Gel) 15-30 GRAMS 15 GRAMS... UD PRN PO 09/10/17 01:45 10/10/17 01:44 Glucose (Glucose Chew Tab) 4-8 Tablets 4 Tabl... UD PRN PO 09/10/17 01:45 10/10/17 01:44 Dextrose (Dextrose 50% 50ML Syringe) 25-50ML OF 50% DW IV FOR... UD PRN IV 09/10/17 01:45 10/10/17 01:44 Glucagon (Glucagon Inj) 1 mg UD PRN SQ 09/10/17 01:45 10/10/17 01:44 Miscellaneous Information (Consult Glycemic Management Pharmacy) 1 ea UD PRN N/A 09/10/17 06:34 10/10/17 06:33 Ipratropium [place] (Atrovent 0.02% 0.5MG/2.5ML Neb) 0.5 mg Q4H PRN INH 09/10/17 06:30 10/10/17 06:29 09/14/17 12:54 0.5 MG Levalbuterol (Xopenex 0.63 Mg/ 3 Ml Neb) 0.63 mg Q4H PRN INH 09/10/17 06:30 10/10/17 06:29 09/14/17 12:54 0.63 MG Heparin Sodium (Porcine) (Heparin 100 Unit/ml 5ml Flush) 5 ml PRN PRN IV 09/11/17 01:15 10/11/17 01:14 09/13/17 06:20 5 ML Hydromorphone HCl (Dilaudid Inj) 0.5 mg Q4 PRN IV 09/11/17 14:00 09/25/17 13:59 09/14/17 12:43 0.5 MG Vancomycin HCl (Consult) 1 ea UD PRN N/A 09/11/17 18:30 10/11/17 18:29 Piperacillin Sod/ Tazobactam Sod (Consult) 1 ea UD PRN N/A 09/11/17 18:30 10/11/17 18:29 Mupirocin (Bactroban 2% Oint) 1 appln BID EXT 09/12/17 09:00 09/17/17 08:59 09/14/17 07:45 1 APPLN Vancomycin HCl 1750 mg/Sodium Chloride 535 ml @ 200 mls/hr DAILY@1200 IV 09/14/17 12:00 09/21/17 11:59 09/14/17 13:17 200 MLS/HR Piperacillin Sod/ Tazobactam Sod 4.5 gm/Dextrose 120 ml @ 30 mls/hr Q8H IV 09/14/17 10:00 09/17/17 23:59 09/15/17 02:23 30 MLS/HR Lorazepam (Ativan Inj) 1 mg Q2H PRN IV 09/14/17 17:30 10/14/17 17:29 Methylprednisolone Sodium Succinate 40 mg/Syringe 0.64 ml @ 1.5 mls/min Q6 IV 09/14/17 18:00 10/14/17 17:59 09/15/17 05:44 1.5 MLS/MIN Metoprolol Tartrate (Lopressor Iv) 5 mg Q6 IV. 09/14/17 18:00 10/14/17 17:59 Famotidine 20 mg/ Syringe 5 ml @ 2.5 mls/min Q12H IV 09/14/17 20:00 10/14/17 19:59 09/14/17 19:57 2.5 MLS/MIN Ipratropium [place] (Atrovent Hfa Inhaler) 4 puffs Q6R INH 09/14/17 21:00 10/14/17 20:59 09/15/17 01:35 4 PUFFS Levalbuterol (Xopenex Hfa Inhaler) 4 puffs Q6R INH 09/14/17 21:00 10/14/17 20:59 09/15/17 01:36 4 PUFFS Lactated Ringer's 1,000 ml @ 80 mls/hr [id number] IV 09/14/17 18:45 10/14/17 18:44 09/14/17 18:43 80 MLS/HR Azithromycin 500 mg/Dextrose 255 ml @ 125 mls/hr DAILY@1900 IV 09/14/17 19:00 09/16/17 23:59 09/14/17 19:57 125 MLS/HR Heparin Sodium (Porcine) (Heparin Sq 5000 Unit/0.5ml) 5,000 unit Q12 SQ 09/14/17 22:00 10/14/17 21:59 09/14/17 21:38 5,000 UNIT Insulin Aspart (novoLOG ASPART) SLIDING SCALE P[facility] SC 09/15/17 08:00 10/15/17 07:59 Insulin Human Regular 250 units/ Sodium Chloride 252.5 ml @ 0 mls/hr Q24H IV 09/14/17 23:45 10/14/17 23:44 09/14/17 23:52 4.3 MLS/HR Propofol (Diprivan Iv Emulsion 100ml Vial) 1 dose UD PRN IV 09/15/17 06:30 09/18/17 06:29 Last 24 Hours Test 09/14/17 06:41 09/14/17 11:28 09/14/17 16:26 09/14/17 18:11 Bedside Glucose 87 mg/dl 158 mg/dl 187 mg/dl Blood Gas Sample Site L Radial Bedside Blood Gas pH (LAB) 7.24 Bedside Blood Gas pCO2 (LAB) 53 mmHg Bedside Blood Gas pO2 (LAB) 59 mmHg Bedside Blood Gas HCO3 (LAB) 23 meq/L Bedside Blood Gas Total CO2 25 mEq/l Bedside Blood Gas Base Excess (LAB) -4.0 meq/L Bedside Blood Gas O2 Saturation 85.0 % Rashad Test Pass Oxygen Delivery Device Ventilator Bedside Oxygen Rate (breaths/min) 12 Blood Gas Minute Ventilation 8.1 Bedside FiO2 50 % Blood Gas Tidal Volume 600 Blood Gas PEEP 5 Test 09/14/17 18:30 09/14/17 18:32 09/14/17 21:21 09/14/17 22:55 White Blood Count 9.01 K/uL Red Blood Count 2.78 M/uL Hemoglobin 7.9 g/dL 7.8 g/dL Hematocrit 25.2 % 24.6 % Mean Corpuscular Volume 90.6 fL Mean Corpuscular Hemoglobin 28.4 pg Mean Corpuscular Hemoglobin Concent 31.3 g/dl Platelet Count 382 K/uL Mean Platelet Volume 8.9 fL Neutrophils (%) (Auto) 95.1 % Lymphocytes (%) (Auto) 2.7 % Monocytes (%) (Auto) 1.7 % Eosinophils (%) (Auto) 0.0 % Basophils (%) (Auto) 0.1 % Neutrophils # (Auto) 8.57 K/uL Lymphocytes # (Auto) 0.24 K/uL Monocytes # (Auto) 0.15 K/uL Eosinophils # (Auto) 0.00 K/uL Basophils # (Auto) 0.01 K/uL RDW Standard Deviation 44.2 fL RDW Coefficient of Variation 13.4 % Immature Granulocyte % (Auto) 0.4 % Immature Granulocyte # (Auto) 0.04 K/uL Polychromasia 1+ Spherocytes 1+ Sodium Level 138 mmol/L 138 mmol/L Potassium Level 5.8 mmol/L 4.5 mmol/L Chloride Level 105 mmol/L 105 mmol/L Carbon Dioxide Level 24 mmol/L 22 mmol/L Anion Gap 9.0 mmol/L 11.0 mmol/L Blood Urea Nitrogen 58 mg/dl 54 mg/dl Creatinine 1.81 mg/dl 1.59 mg/dl Est Creatinine Clear Calc Drug Dose 43.7 ml/min 49.7 ml/min Estimated GFR () 35.6 41.6 Estimated GFR (Non- 30.7 35.9 BUN/Creatinine Ratio 32.2 34.2 Random Glucose 203 mg/dl 237 mg/dl Calcium Level 8.3 mg/dl 8.4 mg/dl Troponin I 0.058 ng/ml Bedside Glucose 221 mg/dl 248 mg/dl Magnesium Level 2.5 mg/dl Test 09/15/17 01:09 09/15/17 02:05 09/15/17 03:27 09/15/17 04:44 Bedside Glucose 175 mg/dl 158 mg/dl 147 mg/dl 135 mg/dl Test 09/15/17 05:29 09/15/17 05:32 09/15/17 05:35 Blood Gas Sample Site L Radial Bedside Blood Gas pH (LAB) 7.53 Bedside Blood Gas pCO2 (LAB) 30 mmHg Bedside Blood Gas pO2 (LAB) 179 mmHg Bedside Blood Gas HCO3 (LAB) 25 meq/L Bedside Blood Gas Total CO2 26 mEq/l Bedside Blood Gas Base Excess (LAB) 2.0 meq/L Bedside Blood Gas O2 Saturation 100.0 % Rashad Test Pass Oxygen Delivery Device Ventilator Bedside Oxygen Rate (breaths/min) 16 Blood Gas Minute Ventilation 8.7 Bedside FiO2 60 % Blood Gas Tidal Volume 600 Blood Gas PEEP 5 White Blood Count 7.09 K/uL Red Blood Count 2.77 M/uL Hemoglobin 7.9 g/dL Hematocrit 24.3 % Mean Corpuscular Volume 87.7 fL Mean Corpuscular Hemoglobin 28.5 pg Mean Corpuscular Hemoglobin Concent 32.5 g/dl Platelet Count 398 K/uL Mean Platelet Volume 9.2 fL Neutrophils (%) (Auto) 87.8 % Lymphocytes (%) (Auto) 7.2 % Monocytes (%) (Auto) 4.8 % Eosinophils (%) (Auto) 0.0 % Basophils (%) (Auto) 0.1 % Neutrophils # (Auto) 6.22 K/uL Lymphocytes # (Auto) 0.51 K/uL Monocytes # (Auto) 0.34 K/uL Eosinophils # (Auto) 0.00 K/uL Basophils # (Auto) 0.01 K/uL RDW Standard Deviation 43.3 fL RDW Coefficient of Variation 13.3 % Immature Granulocyte % (Auto) 0.1 % Immature Granulocyte # (Auto) 0.01 K/uL Red Blood Cell Morphology Unremarkable Sodium Level 140 mmol/L Potassium Level 4.1 mmol/L Chloride Level 105 mmol/L Carbon Dioxide Level 26 mmol/L Anion Gap 9.0 mmol/L Blood Urea Nitrogen 54 mg/dl Creatinine 1.55 mg/dl Est Creatinine Clear Calc Drug Dose 51.0 ml/min Estimated GFR () 42.9 Estimated GFR (Non- 37.0 BUN/Creatinine Ratio 34.6 Random Glucose 132 mg/dl Calcium Level 8.6 mg/dl Phosphorus Level 2.8 mg/dl Magnesium Level 2.4 mg/dl Bedside Glucose 136 mg/dl Date/Time Source Procedure Growth Status 09/14/17 16:50 Nasal MRSA DNA Surveillance Screen - Final Specimen Positive for MRSA by DNA Probe Complete Assessment & Plan [id number] with normal renal us in setting of lasix and contrast and felt to have contrast induced nephrotoxicity-creatinine peaked in the 3s and improved to 1.5. now intubated with wheezing and thin secretions-will stop the iv fluids to try to help optimize lungs. currently on 35% fio2. will give another dose of lasix. ok with creatinine trending up as we try to optimize the lungs.
--- NOTE | 2017-09-15 07:48 | DIAGNOSTIC IMAGING REPORT ---
CHEST ONE VIEW PORTABLE HISTORY: Intubated COMPARISON: Chest 09/14/2017. FINDINGS: No pneumothorax. The heart remains mildly enlarged. Nasogastric tube terminates below the diaphragm. The tip is not included on this study. Endotracheal tube terminates 2.9 cm from the nhung. Left subclavian Port-A-Cath terminates in the SVC. Small bilateral pleural effusions and mild pulmonary edema persists. Progressive left suprahilar airspace opacity. IMPRESSION: 1. Satisfactory support line placement. 2. Pulmonary edema and small bilateral pleural effusions persist. 3. Progressive left suprahilar airspace opacity which could represent a developing pneumonia or a component of the pulmonary edema. Electronically signed by: Remy Jimenez M.D. 09/15/2017 7:47 AM Dictated Date/Time: 09/15/2017 7:45 AM
[2017-09-15] MEDS: FUROSEMIDE INJ 40 MG in SYRINGE 0 ML IV SCH ×2 (07:58→20:08)
[2017-09-15] MEDS: INSULIN ASPART 100 UNITS/ML 3 ML PEN SC SCH ×4 (07:59→20:09)
[2017-09-15] MEDS: MUPIROCIN 2% OINT 22 GM TUBE EXT SCH ×2 (08:00→20:05)
[2017-09-15] MEDS: FAMOTIDINE IV INJ 20 MG in SYRINGE 3 ML IV SCH ×2 (08:00→20:04)
[2017-09-15] MEDS: HEPARIN SOD 5000 UNIT/0.5 ML CARP SQ SCH ×3 (08:11→22:44)
[2017-09-15] MEDS ORDERED: METHYLPREDNISOLONE IV 40 MG in SYRINGE 0 ML IV SCH (09:00)
--- NOTE | 2017-09-15 09:48 | DIAGNOSTIC IMAGING REPORT ---
HEAD WITHOUT CONTRAST (CT) CLINICAL HISTORY: 57 years-old Female presenting with New encephalopathy, B-cell lymphoma. TECHNIQUE: Multidetector CT imaging of the head was performed without the use of intravenous contrast. IV contrast: None. A dose lowering technique was used consistent with the principles of ALARA (as low as reasonably achievable). COMPARISON: 05/08/2008. CT DOSE (mGy.cm): The estimated cumulative dose is 1228.53 mGy.cm. FINDINGS: Assessment Director topogram: Unremarkable. Ventricles and sulci normal in size. Brain parenchyma normal in appearance with preserved hartley-white differentiation. No mass effect or midline shift. No hemorrhage or acute territorial infarct. No extra-axial fluid collection. Paranasal sinuses and mastoid air cells clear. Calvarium intact. IMPRESSION: 1. No acute intracranial abnormality. Electronically signed by: Fabrice Foss M.D. 09/15/2017 9:47 AM Dictated Date/Time: 09/15/2017 9:44 AM
[2017-09-15] MEDS ORDERED: PEPTAMEN INTENSE VHP 1000ML BAG OG PRN (10:00)
--- NOTE | 2017-09-15 11:45 | Critical Care Progress Note ---
Critical Care Progress Note Date of Service Sep 15, 2017. ICU Day ICU Day Number: [address] Bliss Subjective Patient sedated and ventilated. Unable to attain ROS Objective GENERAL: sedated and unresponsive to voice or tactile stimulation, obese, lying in bed, no acute distress, non-toxic HEAD: NC/AT EYES: Normal sclera and conjunctiva OROPHARYNX: No perioral cyanosis. Lips normal. Unable to assess buccal mucosa, tongue and posterior oropharynx due to intubation NECK: Supple LUNGS: Normal chest wall mechanics, Course breath sounds bilaterally, diminished breath sounds bibasilarly. No crackles or wheezes appreciated HEART: RRR, S1 and S2 normal, no murmurs appreciated ABDOMEN: Soft, diminished bowel sounds, no masses SKIN: Warm, pink, dry. No erythema, rashes, or bruising. EXTREMITIES: Grossly normal. No pitting edema. Calves supple, SCDs on. NEURO: Not alert, unable to assess further. Current SOFA Score SOFA Score Response (Comments) Value Platelets (x10) > 150 0 Bilirubin (mg/dL) < 1.2 0 Powell Coma Score < 6 4 Level of Hypotension No Hypotension 0 Creatinine (mg/dL) 1.2 - 1.9 1 Total 5 Assessment & Plan Reason critically ill: 57 year old female presents with respiratory distress and altered mentation s/p intubation Neuro - [facility] ICU - cannot assess. RASS score ~ -4 - Sedation via propofol - Analgesia IV Dilaudid 0.5mg - CT head without contrast today - Concern for infectious encephalopathy - need consider LP to rule out CV - Vitals : HR 70-80s, SBP 100s - Troponin downtrending, likely demand ischemia - H/o HTN: PO meds held. Continue IV Lopressor and IV Lasix 40mg BID Resp - On ventilator support: Volume assisted control. RR 12, Vt 500ml, PEEP 5, FiO2 35% - CXR: Pulmonary edema and small bilateral pleural effusions persist. Progressive left suprahilar airspace opacity which could represent a developing pneumonia or a component of the pulmonary edema - Continue methylprednisone 40mg q6h, Atrovent and Xopenex - Check urine legionella GI/Nutrition - Diet: start tube feeds with Peptamen today - trickle. - Will need C S S REPRESENTATIVE consult to determine aspiration risk post extubation - PPx: IV famotidine q12h Renal/ - Electrolytes WNL, Creatinine elevated secondary to presumed felt to have contrast induced nephrotoxicity, but down trending. - [place] in situ - Strict I/Os ID - Concern for pneumonia, with understanding of current immunosuppression given current cancer - Antibiotics: vancomycin, Zosyn, azithromycin - No leukocytosis - Monitor fever curve Endo - DM: sugars elevated. Likely secondary to steroid use. Continue Novolin + ISS. Monitor BG as per ICU protocol Heme - History of B cell lymphoma, has not commenced chemotherapy yet - H/H stable at 7.9. Coag WNL - Trend CBC Access/Line - Peripheral IV x 2 - Port VTE Prophylaxis - Heparin 5000 SC q12h FULL CODE Resident Physician Supervision Note: I was present with Dr. Oreilly during the history and exam. I discussed the case with the resident and agree with the findings and plan as documented in the note. Any exceptions or clarifications are listed here: Patient with diagnosed B-cell lymphoma (s/p A-port, not started on chemotherapy yet), admitted for shortness of breath on 09/09, thought to have a component of fluid overload, also having a stridorous component. She was on steroids, diuretics, antibiotics, however, last night she had confusion and severe respiratory distress, requiring intubation. She remained intubated today, not waking up fully off sedation. She is also recovering from MARIKA, Cr peaked at 3.39, today is 1.55. Plan: Daily sedation vacation. Sedation changed from propofol to dexmedetomidine. CT brain reviewed, unremarkable. Consider neurology consult Continue vent support, SBT in AM, leak test. Continue diuretics, on bid Lasix, maintain negative balance. Continue Abx for now, on azithromycin, Zosyn and Vanco (was on Levaquin) Continue steroids Insulin drip for glycemic control Start tube feedings today DVT prophylaxis: SC heparin tid Documented By: Minh Bliss MD Consults & Procedures Consultants: Cardiology Critical care Heme onc Nephrology Pulmonology Procedures: Intubation 09/14/17 Data Medications: Current Inpatient Medications Medications (Trade) Dose Ordered Sig/Chantale Route Start Time Stop Time Status Last Admin Dose Admin Glucose (Glucose 40% Gel) 15-30 GRAMS 15 GRAMS... UD PRN PO 09/10/17 01:45 10/10/17 01:44 Glucose (Glucose Chew Tab) 4-8 Tablets 4 Tabl... UD PRN PO 09/10/17 01:45 10/10/17 01:44 Dextrose (Dextrose 50% 50ML Syringe) 25-50ML OF 50% DW IV FOR... UD PRN IV 09/10/17 01:45 10/10/17 01:44 Glucagon (Glucagon Inj) 1 mg UD PRN SQ 09/10/17 01:45 10/10/17 01:44 Miscellaneous Information (Consult Glycemic Management Pharmacy) 1 ea UD PRN N/A 09/10/17 06:34 10/10/17 06:33 Ipratropium [place] (Atrovent 0.02% 0.5MG/2.5ML Neb) 0.5 mg Q4H PRN INH 09/10/17 06:30 10/10/17 06:29 09/14/17 12:54 0.5 MG Levalbuterol (Xopenex 0.63 Mg/ 3 Ml Neb) 0.63 mg Q4H PRN INH 09/10/17 06:30 10/10/17 06:29 09/14/17 12:54 0.63 MG Heparin Sodium (Porcine) (Heparin 100 Unit/ml 5ml Flush) 5 ml PRN PRN IV 09/11/17 01:15 10/11/17 01:14 09/13/17 06:20 5 ML Hydromorphone HCl (Dilaudid Inj) 0.5 mg Q4 PRN IV 09/11/17 14:00 09/25/17 13:59 09/14/17 12:43 0.5 MG Vancomycin HCl (Consult) 1 ea UD PRN N/A 09/11/17 18:30 10/11/17 18:29 Piperacillin Sod/ Tazobactam Sod (Consult) 1 ea UD PRN N/A 09/11/17 18:30 10/11/17 18:29 Mupirocin (Bactroban 2% Oint) 1 appln BID EXT 09/12/17 09:00 09/17/17 08:59 09/15/17 08:00 1 APPLN Vancomycin HCl 1750 mg/Sodium Chloride 535 ml @ 200 mls/hr DAILY@1200 IV 09/14/17 12:00 09/21/17 11:59 09/14/17 13:17 200 MLS/HR Piperacillin Sod/ Tazobactam Sod 4.5 gm/Dextrose 120 ml @ 30 mls/hr Q8H IV 09/14/17 10:00 09/17/17 23:59 09/15/17 11:09 30 MLS/HR Lorazepam (Ativan Inj) 1 mg Q2H PRN IV 09/14/17 17:30 10/14/17 17:29 Methylprednisolone Sodium Succinate 40 mg/Syringe 0.64 ml @ 1.5 mls/min Q6 IV 09/14/17 18:00 10/14/17 17:59 09/15/17 05:44 1.5 MLS/MIN Metoprolol Tartrate (Lopressor Iv) 5 mg Q6 IV. 09/14/17 18:00 10/14/17 17:59 Famotidine 20 mg/ Syringe 5 ml @ 2.5 mls/min Q12H IV 09/14/17 20:00 10/14/17 19:59 09/15/17 08:00 2.5 MLS/MIN Ipratropium [place] (Atrovent Hfa Inhaler) 4 puffs Q6R INH 09/14/17 21:00 10/14/17 20:59 09/15/17 07:15 4 PUFFS Levalbuterol (Xopenex Hfa Inhaler) 4 puffs Q6R INH 09/14/17 21:00 10/14/17 20:59 09/15/17 07:15 4 PUFFS Azithromycin 500 mg/Dextrose 255 ml @ 125 mls/hr DAILY@1900 IV 09/14/17 19:00 09/16/17 23:59 09/14/17 19:57 125 MLS/HR Insulin Aspart (novoLOG ASPART) SLIDING SCALE [facility] 09/15/17 08:00 10/15/17 07:59 Insulin Human Regular 250 units/ Sodium Chloride 252.5 ml @ 0 mls/hr Q24H IV 09/14/17 23:45 10/14/17 23:44 09/14/17 23:52 4.3 MLS/HR Propofol (Diprivan Iv Emulsion 100ml Vial) 1 dose UD PRN IV 09/15/17 06:30 09/18/17 06:29 09/15/17 11:10 1 DOSE Furosemide 40 mg/ Syringe 4 ml @ 4 mls/min BID IV 09/15/17 09:00 10/15/17 08:59 09/15/17 07:58 4 MLS/MIN Heparin Sodium (Porcine) (Heparin Sq 5000 Unit/0.5ml) 5,000 unit Q8@0600,1400,2200 SQ 09/15/17 14:00 10/15/17 13:59 Enteral Nutritional Formula (Peptamen Intense VHP) 1,000 ml UD PRN OG 09/15/17 10:00 10/15/17 09:59 Vital Signs: Date Time Temp Pulse Resp B/P (MAP) Pulse Ox O2 Delivery O2 Flow Rate FiO2 09/15/17 10:00 108 23 150/83 (105) 94 Mechanical Ventilator 35.0 09/15/17 08:00 Mechanical Ventilator 35 09/15/17 08:00 37.4 94 14 134/81 (98) 97 Mechanical Ventilator 35.0 09/15/17 07:15 35 09/15/17 06:01 79 16 109/69 (77) 97 09/15/17 05:30 35 09/15/17 05:01 74 16 104/67 (79) 100 09/15/17 04:01 77 16 109/66 (77) 100 09/15/17 04:00 36.6 09/15/17 04:00 60 09/15/17 04:00 Mechanical Ventilator 60 09/15/17 03:01 76 16 103/67 (76) 100 09/15/17 02:01 74 16 99/68 (76) 100 09/15/17 01:39 60 09/15/17 01:01 76 16 106/67 (83) 100 09/15/17 00:01 78 16 103/72 (88) 100 09/15/17 00:00 Mechanical Ventilator 60 09/15/17 00:00 60 09/15/17 00:00 36.6 09/14/17 23:08 60 09/14/17 23:01 77 16 103/70 (81) 100 09/14/17 22:01 80 16 100/70 (76) 100 09/14/17 21:12 60 09/14/17 21:01 84 16 104/67 (79) 100 09/14/17 20:08 85 16 108/70 (80) 100 09/14/17 20:00 60 11/12/17 20:00 36.6 09/14/17 20:00 Mechanical Ventilator 60 09/14/17 18:00 36.6 95 16 106/68 (81) 98 Mechanical Ventilator 50.0 09/14/17 18:00 50 09/14/17 17:35 50 09/14/17 16:26 36.7 108 28 136/78 (97) 93 Oxymask 5.0 09/14/17 16:00 92 Nasal Cannula 5.0 09/14/17 12:54 101 99 35 09/14/17 12:54 101 15 99 BiPAP/CPAP 35 09/14/17 12:05 Nasal Cannula 2.0 09/14/17 11:30 36.7 102 20 113/65 (81) 98 Nasal Cannula 4.0 Laboratory Results: Last 24 Hours Test 09/14/17 11:28 09/14/17 16:26 09/14/17 18:11 09/14/17 18:30 Bedside Glucose 158 mg/dl 187 mg/dl Blood Gas Sample Site L Radial Bedside Blood Gas pH (LAB) 7.24 Bedside Blood Gas pCO2 (LAB) 53 mmHg Bedside Blood Gas pO2 (LAB) 59 mmHg Bedside Blood Gas HCO3 (LAB) 23 meq/L Bedside Blood Gas Total CO2 25 mEq/l Bedside Blood Gas Base Excess (LAB) -4.0 meq/L Bedside Blood Gas O2 Saturation 85.0 % Rashad Test Pass Oxygen Delivery Device Ventilator Bedside Oxygen Rate (breaths/min) 12 Blood Gas Minute Ventilation 8.1 Bedside FiO2 50 % Blood Gas Tidal Volume 600 Blood Gas PEEP 5 White Blood Count 9.01 K/uL Red Blood Count 2.78 M/uL Hemoglobin 7.9 g/dL Hematocrit 25.2 % Mean Corpuscular Volume 90.6 fL Mean Corpuscular Hemoglobin 28.4 pg Mean Corpuscular Hemoglobin Concent 31.3 g/dl Platelet Count 382 K/uL Mean Platelet Volume 8.9 fL Neutrophils (%) (Auto) 95.1 % Lymphocytes (%) (Auto) 2.7 % Monocytes (%) (Auto) 1.7 % Eosinophils (%) (Auto) 0.0 % Basophils (%) (Auto) 0.1 % Neutrophils # (Auto) 8.57 K/uL Lymphocytes # (Auto) 0.24 K/uL Monocytes # (Auto) 0.15 K/uL Eosinophils # (Auto) 0.00 K/uL Basophils # (Auto) 0.01 K/uL RDW Standard Deviation 44.2 fL RDW Coefficient of Variation 13.4 % Immature Granulocyte % (Auto) 0.4 % Immature Granulocyte # (Auto) 0.04 K/uL Polychromasia 1+ Spherocytes 1+ Sodium Level 138 mmol/L Potassium Level 5.8 mmol/L Chloride Level 105 mmol/L Carbon Dioxide Level 24 mmol/L Anion Gap 9.0 mmol/L Blood Urea Nitrogen 58 mg/dl Creatinine 1.81 mg/dl Est Creatinine Clear Calc Drug Dose 43.7 ml/min Estimated GFR () 35.6 Estimated GFR (Non- 30.7 BUN/Creatinine Ratio 32.2 Random Glucose 203 mg/dl Calcium Level 8.3 mg/dl Troponin I 0.058 ng/ml Test 09/14/17 18:32 09/14/17 21:21 09/14/17 22:55 09/15/17 01:09 Bedside Glucose 221 mg/dl 248 mg/dl 175 mg/dl Hemoglobin 7.8 g/dL Hematocrit 24.6 % Sodium Level 138 mmol/L Potassium Level 4.5 mmol/L Chloride Level 105 mmol/L Carbon Dioxide Level 22 mmol/L Anion Gap 11.0 mmol/L Blood Urea Nitrogen 54 mg/dl Creatinine 1.59 mg/dl Est Creatinine Clear Calc Drug Dose 49.7 ml/min Estimated GFR () 41.6 Estimated GFR (Non- 35.9 BUN/Creatinine Ratio 34.2 Random Glucose 237 mg/dl Calcium Level 8.4 mg/dl Magnesium Level 2.5 mg/dl Test 09/15/17 02:05 09/15/17 03:27 09/15/17 04:44 09/15/17 05:29 Bedside Glucose 158 mg/dl 147 mg/dl 135 mg/dl Blood Gas Sample Site L Radial Bedside Blood Gas pH (LAB) 7.53 Bedside Blood Gas pCO2 (LAB) 30 mmHg Bedside Blood Gas pO2 (LAB) 179 mmHg Bedside Blood Gas HCO3 (LAB) 25 meq/L Bedside Blood Gas Total CO2 26 mEq/l Bedside Blood Gas Base Excess (LAB) 2.0 meq/L Bedside Blood Gas O2 Saturation 100.0 % Rashad Test Pass Oxygen Delivery Device Ventilator Bedside Oxygen Rate (breaths/min) 16 Blood Gas Minute Ventilation 8.7 Bedside FiO2 60 % Blood Gas Tidal Volume 600 Blood Gas PEEP 5 Test 09/15/17 05:32 09/15/17 05:35 White Blood Count 7.09 K/uL Red Blood Count 2.77 M/uL Hemoglobin 7.9 g/dL Hematocrit 24.3 % Mean Corpuscular Volume 87.7 fL Mean Corpuscular Hemoglobin 28.5 pg Mean Corpuscular Hemoglobin Concent 32.5 g/dl Platelet Count 398 K/uL Mean Platelet Volume 9.2 fL Neutrophils (%) (Auto) 87.8 % Lymphocytes (%) (Auto) 7.2 % Monocytes (%) (Auto) 4.8 % Eosinophils (%) (Auto) 0.0 % Basophils (%) (Auto) 0.1 % Neutrophils # (Auto) 6.22 K/uL Lymphocytes # (Auto) 0.51 K/uL Monocytes # (Auto) 0.34 K/uL Eosinophils # (Auto) 0.00 K/uL Basophils # (Auto) 0.01 K/uL RDW Standard Deviation 43.3 fL RDW Coefficient of Variation 13.3 % Immature Granulocyte % (Auto) 0.1 % Immature Granulocyte # (Auto) 0.01 K/uL Red Blood Cell Morphology Unremarkable Sodium Level 140 mmol/L Potassium Level 4.1 mmol/L Chloride Level 105 mmol/L Carbon Dioxide Level 26 mmol/L Anion Gap 9.0 mmol/L Blood Urea Nitrogen 54 mg/dl Creatinine 1.55 mg/dl Est Creatinine Clear Calc Drug Dose 51.0 ml/min Estimated GFR () 42.9 Estimated GFR (Non- 37.0 BUN/Creatinine Ratio 34.6 Random Glucose 132 mg/dl Calcium Level 8.6 mg/dl Phosphorus Level 2.8 mg/dl Magnesium Level 2.4 mg/dl Procalcitonin 0.26 ng/ml Bedside Glucose 136 mg/dl Resident Tracking Resident Involvement: Resident Care Provided Care Provided: Adult Hospital Medicine
[2017-09-15] MEDS: VANCOMYCIN INJ 1,750 MG in SODIUM CHLORIDE 0.9% 500ML 500 ML IV SCH (12:14)
--- NOTE | 2017-09-15 12:24 | Pharmacy Progress Note ---
Glycemic Control Progress Note Date of Service Sep 15, 2017. Scope Glycemic Pharmacist consulted for glycemic control to write orders per [facility] inpatient glycemic control protocol. Objective Accuchecks BSG (last 24hrs): Test 09/14/17 16:26 09/14/17 18:30 09/14/17 18:32 09/14/17 21:21 Bedside Glucose 187 mg/dl (70-90) 221 mg/dl (70-90) 248 mg/dl (70-90) Random Glucose 203 mg/dl (70-99) Test 09/14/17 22:55 09/15/17 01:09 09/15/17 02:05 09/15/17 03:27 Random Glucose 237 mg/dl (70-99) Bedside Glucose 175 mg/dl (70-90) 158 mg/dl (70-90) 147 mg/dl (70-90) Test 09/15/17 04:44 09/15/17 05:32 09/15/17 05:35 Bedside Glucose 135 mg/dl (70-90) 136 mg/dl (70-90) Random Glucose 132 mg/dl (70-99) HbA1c: Test 09/11/17 04:11 Hemoglobin A1c 11.8 % (4.5-5.6) H Recent Pertinent Medications The patient is currently receiving: * IV insulin infusion per protocol; SQ Novolog based upon insulin infusion adjustment calculator Outpatient Anti-Diabetic Meds Levemir 10 units SQ HS Glipizide 20 mg PO BIDM Metformin 1,000mg PO BIDM Assessment & Plan ASSESSMENT: 09/15/17 * Patient became confused last evening and had worsening of respiratory status, leading to intubation and transfer to ICU * BSGs began to rise and patient was started on IV insulin infusion per protocol ; goal 120-180mg/dL * Patient remains intubated this AM and is encephalopathic, no plans to extubate at this time * She is to begin "trickle" Pepatmen Intense VHP tube feeds at 10cc/hr today. * Given patient's multiple risk factors for insulin resistance (high dose steroids, continuous tube feeds, mechanical ventilation, infection) an IV insulin infusion is warranted for optimal glycemic control. PLAN FOR INPATIENT GLYCEMIC CONTROL: * Continue the insulin drip at this time; same goal range: 120 - 180mg/dL * Would not consider transition to SQ unless tube feeds were already at goal and there were no plans to alter steroids or extubate * Please note that the plan above was derived based on current level of insulin resistance and hospital stress. These recommendations are appropriate for inpatient admission only. Plan of care upon discharge will need to be reassessed to avoid potential outpatient hypo/hyperglycemia. Thank you.
[2017-09-15] MEDS ORDERED: PHARMACY GLYCEMIC MGMT CONSULT SCH (13:56)
[2017-09-15] MEDS: DexMEDEtomidine HCL IV 200 MCG in SODIUM CHLORIDE 0.9% 50ML 48 ML IV SCH ×3 (14:07→21:59)
--- NOTE | 2017-09-15 19:08 | Hematology/Oncology Prog Note ---
Hematology/Onc Progress Note Date of Service Sep 15, 2017. Subjective 57-year-old female, a case of large B-cell lymphoma, at least stage III disease , we have not started her on chemotherapy as of now, has develop contrast induced nephrotoxicity, gradual improvement of the kidney function is noted but over the weekend the she became more confused, developed respiratory failure ( related to the pulmonary team a, bilateral pleural effusion), now intubated, admitted in the ICU, I saw her bedside, blood pressure has remained slightly on the lower side, presently she is receiving mechanical ventilation support with FiO 2 of 35%,No fever, gradually trying to wean her off from the ventilator therapy. She is also receiving broad-spectrum antibiotic for possible bilateral pneumonia in the form of vancomycin, Zosyn, azithromycin. No leukocytosis noted. She is also receiving tube feeding. Presently she is receiving methylprednisolone that also may be helpful for the underlying diagnosis of lymphoma. I reviewed her blood workup done today, hemoglobin level dropped down to around 7.8 small and 7.9 g/dL, normal white blood cell count around 7000, platelet count is around 398,000. BUN/Creat: 54/1.5. I spoke with the patient 's mom as well as her sister at bedside, reviewed her oral clinical condition, she has quite a few comorbid conditions mainly ischemic cardiomyopathy, low ejection fraction, abnormal kidney function test, now she is on vent support. At present she is not ready to start any kind of systemic chemotherapy for lymphoma diagnosis and her family member understood that quite well. She is also at high risk for tumor lysis once we start systemic chemotherapy, her uric acid level was on the higher side around 7.8 earlier on 09/12/2017. I would like to check G6PD in her case as we may have to consider for Rasburicase to prevent tumor lysis in her case. Would like to check uric acid dot. Will continue the current ICU management. Dr. Ranjan Dobbs Hem/Onc (This note was completed using the dictation program Fluency Direct. As such, there may be misspellings, word substitutions, or other variations that should not change the essence of the clinical content of this encounter note. If there is need for further clarification, please direct questions to the provider listed above.) Vital Signs Vital Signs Past 12 Hours Date Time Temp Pulse Resp B/P (MAP) Pulse Ox O2 Delivery O2 Flow Rate FiO2 09/15/17 18:11 35 11/13/17 18:00 71 13 90/60 (70) 99 Mechanical Ventilator 35 09/15/17 17:08 76 102/69 09/15/17 16:00 35 09/15/17 16:00 Mechanical Ventilator 35 09/15/17 16:00 37.2 67 12 91/61 (71) 99 Mechanical Ventilator 35 09/15/17 14:21 35 09/15/17 14:00 91 13 120/70 (87) 97 Mechanical Ventilator 35 09/15/17 12:15 89 122/75 09/15/17 12:00 35 09/15/17 12:00 37.2 90 14 122/75 (91) 97 Mechanical Ventilator 35 09/15/17 12:00 Mechanical Ventilator 35 09/15/17 11:29 35 09/15/17 10:00 108 23 150/83 (105) 94 Mechanical Ventilator 35.0 09/15/17 08:00 35 09/15/17 08:00 Mechanical Ventilator 35 09/15/17 08:00 37.4 94 14 134/81 (98) 97 Mechanical Ventilator 35.0 09/15/17 08:00 Mechanical Ventilator 35 09/15/17 07:15 35
--- NOTE | 2017-09-15 20:01 | Progress Note ---
Internal Med Progress Note Date of Service: Sep 15, 2017. Provider Documentation: SUBJECTIVE: pt self extubated this Evening initially on NRB spo2 maintained 100 % transitioned to Bipap , able to move limbs , opens eyes briefly to voice unable to follow command OBJECTIVE: Vital Signs-as noted below Exam: General- on Bipap Eyes-sclera non icteric Lungs-diminished Heart-regular Abdomen-soft, non tender Extremities-no lower ext edema Neuro-sedation d/oz as pt self extubated , still groggy , moving all limbs , with spontaneous breathing Lab data as noted below. ASSESSMENT & PLAN: ACUTE HYPOXEMIC RESPIRATORY FAILURE : requiring mechanical ventilation multifactorial -Acute CHF with systolic dysfunction /pneumonia Cxray : pulmonary edema and small bilat pleural effusions persists , Progressive left suprahilar airspace opacity which could represent a developing pneumonia or a component of pulmonary edema ECHO shows EF 35 -40 % Cardiology /Pulmonary critical care following cont on diuresis empiric Abx with Vanco/Zosyn /Zithromax pt self extubated this evening transitioned to Bipap -able to have spontaneous breathing , spo2 99 % Critical care team following closely MARIKA : Due to contrast induced nephropathy- had CTA of chest /diuretics Cr improved to 1.5 today appreciate input from Nephrology diuresis continued to improved pulmonary status cont to monitor renal function closely Elevated troponin likely NSTEMI from demand ischemia ECHO ; no wall motion abnormality DM type 2 BSG elevated due to IV steroid insulin SSI HTN Cont on IV Lopressor /Lasix 40 mg IV BID B Cell Lymphoma recently diagnosed not started on Chemo yet appreciate input form Heme onc pt will need to recover form acute illness prior to consider chemo tx DVT PROPHYLAXIS : sub q heparin CODE STATUS Ful code DISPOSITION remains critically ill cont to monitor in ICU Vital Signs: Date Time Temp Pulse Resp B/P (MAP) Pulse Ox O2 Delivery O2 Flow Rate FiO2 09/15/17 19:58 35 09/15/17 18:11 35 09/15/17 18:00 71 13 90/60 (70) 99 Mechanical Ventilator 35 09/15/17 17:08 76 102/69 09/15/17 16:00 35 09/15/17 16:00 Mechanical Ventilator 35 09/15/17 16:00 37.2 67 12 91/61 (71) 99 Mechanical Ventilator 35 09/15/17 14:21 35 09/15/17 14:00 91 13 120/70 (87) 97 Mechanical Ventilator 35 09/15/17 12:15 89 122/75 09/15/17 12:00 35 09/15/17 12:00 37.2 90 14 122/75 (91) 97 Mechanical Ventilator 35 09/15/17 12:00 Mechanical Ventilator 35 09/15/17 11:29 35 09/15/17 10:00 108 23 150/83 (105) 94 Mechanical Ventilator 35.0 09/15/17 08:00 35 09/15/17 08:00 Mechanical Ventilator 35 09/15/17 08:00 37.4 94 14 134/81 (98) 97 Mechanical Ventilator 35.0 09/15/17 08:00 Mechanical Ventilator 35 09/15/17 07:15 35 09/15/17 06:01 79 16 109/69 (77) 97 09/15/17 05:30 35 09/15/17 05:01 74 16 104/67 (79) 100 09/15/17 04:01 77 16 109/66 (77) 100 09/15/17 04:00 36.6 09/15/17 04:00 60 09/15/17 04:00 Mechanical Ventilator 60 09/15/17 03:01 76 16 103/67 (76) 100 09/15/17 02:01 74 16 99/68 (76) 100 09/15/17 01:39 60 09/15/17 01:01 76 16 106/67 (83) 100 09/15/17 00:01 78 16 103/72 (88) 100 09/15/17 00:00 Mechanical Ventilator 60 09/15/17 00:00 60 09/15/17 00:00 36.6 09/14/17 23:08 60 09/14/17 23:01 77 16 103/70 (81) 100 09/14/17 22:01 80 16 100/70 (76) 100 09/14/17 21:12 60 09/14/17 21:01 84 16 104/67 (79) 100 Lab Results: Results Past 24 Hours Test 09/14/17 21:21 09/14/17 22:55 09/15/17 01:09 09/15/17 02:05 Range/Units Bedside Glucose 248 175 158 70-90 mg/dl Hemoglobin 7.8 12.0-16.0 g/dL Hematocrit 24.6 37-47 % Sodium Level 138 136-145 mmol/L Potassium Level 4.5 3.5-5.1 mmol/L Chloride Level 105 98-107 mmol/L Carbon Dioxide Level 22 21-32 mmol/L Anion Gap 11.0 3-11 mmol/L Blood Urea Nitrogen 54 7-18 mg/dl Creatinine 1.59 0.60-1.20 mg/dl Est Creatinine Clear Calc Drug Dose 49.7 ml/min Estimated GFR () 41.6 Estimated GFR (Non- 35.9 BUN/Creatinine Ratio 34.2 10-20 Random Glucose 237 70-99 mg/dl Calcium Level 8.4 8.5-10.1 mg/dl Magnesium Level 2.5 1.8-2.4 mg/dl Test 09/15/17 03:27 09/15/17 04:44 09/15/17 05:29 09/15/17 05:32 Range/Units Bedside Glucose 147 135 70-90 mg/dl Blood Gas Sample Site L Radial Bedside Blood Gas pH (LAB) 7.53 7.35-7.45 Bedside Blood Gas pCO2 (LAB) 30 35-46 mmHg Bedside Blood Gas pO2 (LAB) 179 80-95 mmHg Bedside Blood Gas HCO3 (LAB) 25 19-24 meq/L Bedside Blood Gas Total CO2 26 24-31 mEq/l Bedside Blood Gas Base Excess (LAB) 2.0 -9-1.8 meq/L Bedside Blood Gas O2 Saturation 100.0 90-95 % Rashad Test Pass Oxygen Delivery Device Ventilator Bedside Oxygen Rate (breaths/min) 16 Blood Gas Minute Ventilation 8.7 Bedside FiO2 60 % Blood Gas Tidal Volume 600 Blood Gas PEEP 5 White Blood Count 7.09 4.8-10.8 K/uL Red Blood Count 2.77 4.2-5.4 M/uL Hemoglobin 7.9 12.0-16.0 g/dL Hematocrit 24.3 37-47 % Mean Corpuscular Volume 87.7 80-100 fL Mean Corpuscular Hemoglobin 28.5 25-34 pg Mean Corpuscular Hemoglobin Concent 32.5 32-36 g/dl Platelet Count 398 130-400 K/uL Mean Platelet Volume 9.2 7.4-10.4 fL Neutrophils (%) (Auto) 87.8 % Lymphocytes (%) (Auto) 7.2 % Monocytes (%) (Auto) 4.8 % Eosinophils (%) (Auto) 0.0 % Basophils (%) (Auto) 0.1 % Neutrophils # (Auto) 6.22 1.4-6.5 K/uL Lymphocytes # (Auto) 0.51 1.2-3.4 K/uL Monocytes # (Auto) 0.34 0.11-0.59 K/uL Eosinophils # (Auto) 0.00 0-0.5 K/uL Basophils # (Auto) 0.01 0-0.2 K/uL RDW Standard Deviation 43.3 36.4-46.3 fL RDW Coefficient of Variation 13.3 11.5-14.5 % Immature Granulocyte % (Auto) 0.1 % Immature Granulocyte # (Auto) 0.01 0.00-0.02 K/uL Red Blood Cell Morphology Unremarkable Sodium Level 140 136-145 mmol/L Potassium Level 4.1 3.5-5.1 mmol/L Chloride Level 105 98-107 mmol/L Carbon Dioxide Level 26 21-32 mmol/L Anion Gap 9.0 3-11 mmol/L Blood Urea Nitrogen 54 7-18 mg/dl Creatinine 1.55 0.60-1.20 mg/dl Est Creatinine Clear Calc Drug Dose 51.0 ml/min Estimated GFR () 42.9 Estimated GFR (Non- 37.0 BUN/Creatinine Ratio 34.6 10-20 Random Glucose 132 70-99 mg/dl Uric Acid 7.2 2.6-7.2 mg/dl Calcium Level 8.6 8.5-10.1 mg/dl Phosphorus Level 2.8 2.5-4.9 mg/dl Magnesium Level 2.4 1.8-2.4 mg/dl Procalcitonin 0.26 0-0.5 ng/ml Test 09/15/17 05:35 09/15/17 07:56 09/15/17 10:05 09/15/17 11:00 Range/Units Bedside Glucose 136 139 138 70-90 mg/dl Test 09/15/17 12:22 09/15/17 13:17 09/15/17 14:12 09/15/17 14:40 Range/Units Bedside Glucose 110 100 93 90 70-90 mg/dl Test 09/15/17 15:15 09/15/17 16:19 09/15/17 17:25 09/15/17 18:17 Range/Units Bedside Glucose 123 105 121 125 70-90 mg/dl Test 09/15/17 19:22 Range/Units Bedside Glucose 139 70-90 mg/dl
[2017-09-15] MEDS: AZITHROMYCIN IV 500 MG in DEXTROSE 5% 250ML 250 ML IV SCH (20:04)
--- NOTE | 2017-09-15 22:16 | Critical Care Progress Note ---
Critical Care Progress Note Date of Service Sep 15, 2017. Critical Care Progress Note At approximately 2030, I was approached by nursing staff as they informing that the patient had self extubated. On my evaluation, the patient was breathing spontaneously and responding to stimuli. The propofol drip was discontinued. I did have racing secretary contact respiratory. She was placed on BiPAP at 15/5 35% and maintaining an oxygen saturation of greater than 95%. Did communicate with Dr. Bliss regarding patient. ABG ordered. Spoke with Autumn (patient's mother ) to keep her updated.
[2017-09-15 22:38] LABS: IPAP 15; ISTAT ALLEN TEST Pass; ISTAT ARTERIAL BLOOD GAS HCO3 23 meq/L (19-24); ISTAT ARTERIAL BLOOD GAS PCO2 32 mmHg (35-46); ISTAT ARTERIAL BLOOD GAS PO2 124 mmHg (80-95); ISTAT ARTERIAL BLOOD GAS pH 7.48 (7.35-7.45); ISTAT CARBON DIOXIDE 24 mEq/l (24-31); ISTAT DELIVERY SYSTEM BIPAP; ISTAT FIO2 35 %; ISTAT RATE 22; ISTAT SITE L Radial
[2017-09-15] MEDS: INSULIN REGULAR 250 UNITS in SODIUM CHLORIDE 0.9% 250ML 250 ML IV SCH (23:45)
[2017-09-16] VITALS (20 sets, daily range): BP systolic 100–137; BP diastolic 59–84; PULSE 73–88; TEMP 36.4–36.9; O2SAT 94–99
[2017-09-16] MEDS: METHYLPREDNISOLONE IV 40 MG in SYRINGE 0 ML IV SCH ×4 (00:35→22:09)
[2017-09-16] MEDS: METOPROLOL TARTRATE 1 MG/ML VIAL IV. SCH ×4 (00:59→18:50)
[2017-09-16 01:23] LABS: IPAP 10; ISTAT ALLEN TEST Pass; ISTAT ARTERIAL BLOOD GAS HCO3 23 meq/L (19-24); ISTAT ARTERIAL BLOOD GAS PCO2 34 mmHg (35-46); ISTAT ARTERIAL BLOOD GAS PO2 66 mmHg (80-95); ISTAT ARTERIAL BLOOD GAS pH 7.44 (7.35-7.45); ISTAT CARBON DIOXIDE 24 mEq/l (24-31); ISTAT DELIVERY SYSTEM BIPAP; ISTAT FIO2 28 %; ISTAT RATE 24; ISTAT SITE L Radial
[2017-09-16] MEDS: PIPERACILL/TAZOBAC IV 4.5 GM in DEXTROSE 5% 100ML IV SCH ×3 (01:42→18:46)
[2017-09-16] MEDS: LEVALBUTEROL 0.63MG/3 ML NEB INH SCH ×7 (01:44→22:57)
[2017-09-16] MEDS: IPRATROPIUM BROMIDE NEB SOLN 0.02% 2.5 ML VIAL INH SCH ×6 (01:44→22:57)
[2017-09-16] MEDS: HEPARIN SOD 5000 UNIT/0.5 ML CARP SQ SCH ×3 (05:37→22:08)
[2017-09-16 05:48] LABS: BASO % 0.1 %; BASO ABS # 0.01 K/uL (0-0.2); HEMATOCRIT 27.8 % (37-47); IG% 0.3 %; LYMPH % 4.4 %; LYMPH ABS # 0.69 K/uL (1.2-3.4); MEAN CELL VOLUME 90.8 fL (80-100); MEAN CORPUSCULAR HEMOGLOBIN 28.8 pg (25-34); MEAN CORPUSCULAR HGB CONC 31.7 g/dl (32-36); MONO % 4.1 %; NEUT % 91.1 %; PLATELET COUNT 514 K/uL (130-400); RED BLOOD COUNT 3.06 M/uL (4.2-5.4); WHITE BLOOD COUNT 15.74 K/uL (4.8-10.8)
[2017-09-16 06:22] LABS: COMPLETE YES
[2017-09-16 06:32] LABS: BUN/CREATININE RATIO 30.5 (10-20); CALCIUM 8.7 mg/dl (8.5-10.1); CREATININE 1.72 mg/dl (0.60-1.20); MAGNESIUM 2.6 mg/dl (1.8-2.4); POTASSIUM 4.2 mmol/L (3.5-5.1)
[2017-09-16 06:34] LABS: PHOSPHORUS 3.7 mg/dl (2.5-4.9)
--- NOTE | 2017-09-16 07:11 | DIAGNOSTIC IMAGING REPORT ---
CHEST ONE VIEW PORTABLE HISTORY: 57 years-old Female Resp failure, pneumonia acute respiratory failure with pneumonia COMPARISON: Chest radiograph 09/15/2017 TECHNIQUE: Portable upright AP view of the chest FINDINGS: Left subclavian [id number] catheter is again seen is unchanged in positioning with distal tip in the region of the SVC. There has been interval extubation along with removal of the enteric tube. Cardiomegaly with pulmonary vascular congestion and mild pulmonary edema pattern persists. Left perihilar and left upper lobe mixed interstitial and alveolar opacities have slightly worsened. Small left and trace right pleural effusions with bibasilar opacities suggesting atelectasis redemonstrated. Bones are grossly intact. Fusion hardware of the thoracolumbar spine. IMPRESSION: 1. Interval extubation along with removal of the enteric tube. 2. Cardiomegaly with persistent pulmonary edema, small bilateral pleural effusions and bibasilar opacities suggesting atelectasis. 3. Mildly worsened left perihilar and left upper lobe mixed interstitial and alveolar opacities. Asymmetric pulmonary edema or pneumonia are differential considerations. The above report was generated using voice recognition software. It may contain grammatical, syntax or spelling errors. Electronically signed by: Demetrio Gaines M.D. 09/16/2017 7:10 AM Dictated Date/Time: 09/16/2017 7:08 AM
[2017-09-16] MEDS: INSULIN ASPART 100 UNITS/ML 3 ML PEN SC SCH ×5 (08:00→20:58)
[2017-09-16] MEDS: FAMOTIDINE IV INJ 20 MG in SYRINGE 3 ML IV SCH (09:28)
[2017-09-16] MEDS: MUPIROCIN 2% OINT 22 GM TUBE EXT SCH ×2 (09:29→20:41)
[2017-09-16] MEDS: FUROSEMIDE INJ 40 MG in SYRINGE 0 ML IV SCH ×2 (09:29→20:51)
[2017-09-16] MEDS ORDERED: GABAPENTIN 300 MG CAP PO ONE (09:47)
[2017-09-16] MEDS ORDERED: VENLAFAXINE HCL XR 37.5 MG CAPXR PO ONE (09:47)
[2017-09-16] MEDS ORDERED: VENLAFAXINE HCL XR 150 MG CAPXR PO ONE (09:47)
[2017-09-16] MEDS ORDERED: INSULIN DETEMIR FLEXPEN/FLEX TOUCH 100 UNITS/ML 3ML SC ONE (10:00)
--- NOTE | 2017-09-16 10:04 | Critical Care Progress Note ---
Critical Care Progress Note Date of Service Sep 16, 2017. ICU Day ICU Day Number: [address] Bliss Subjective Patient well this morning. Does not recall self-extubation last night. She feels comfortable currently. Is receiving supplemental oxygen and denies CP, dyspnea, palpitation, N/V, abdominal pain. She states she is hungry, and would like food JADE. She is refusing SCDs and would also like her Orona to be removed. Management plans described to patient, including increased ambulation as tolerated today. Patient in agreement. Objective GENERAL: alert, obese, sitting out of bed, no acute distress, non-toxic, NC in situ HEAD: NC/AT EYES: Normal sclera and conjunctiva OROPHARYNX: No perioral cyanosis. Lips, buccal mucosa, tongue normal. No erythema or exudate of posterior oropharynx. Mucous membranes moist. NECK: Supple, no adenopathy, no JVD or bruits appreciated LUNGS: Normal chest wall mechanics, Course breath sounds bilaterally, diminished breath sounds bibasilarly. No crackles or wheezes appreciated HEART: RRR, S1 and S2 normal, no murmurs appreciated ABDOMEN: Soft, diminished bowel sounds, no masses SKIN: Warm, pink, dry. No erythema, rashes, or bruising. EXTREMITIES: Grossly normal. No pitting edema. Calves supple. NEURO: A&Ox3, Cranial nerves II-XII grossly normal, normal speech. PSYCH: Mood and affect appropriate Current SOFA Score SOFA Score Response (Comments) Value Platelets (x10) > 150 0 Bilirubin (mg/dL) < 1.2 0 Kaiser Coma Score < 6 4 Level of Hypotension No Hypotension 0 Creatinine (mg/dL) 1.2 - 1.9 1 Total 5 Assessment & Plan Reason critically ill: 57 year old female presents with respiratory distress and altered mentation s/p self extubation Neuro - CAM ICU negative - Analgesia IV Dilaudid 0.5mg - Restarted buspirone, venlafaxine, trazodone - Continue to monitor for altered mentation CV - Vitals : HR 70-110, SBP 90-120s - H/o HTN: Continue IV Lopressor and IV Lasix 40mg BID. PO meds (amlodipine, carvedilol, lisinopril) held for now - Restart aspirin and atorvastatin - Continue to monitor on telemetry Resp - Off ventilator support. Wore BiPAP over night - to be continued nightly - Currently on 2L via NC, wean as tolerated - Continue methylprednisone 40mg q8h, Atrovent and Xopenex - Check urine legionella GI/Nutrition - Diet: DM diet - safe for PO food without restriction as per FOOD SERVICE SUPERVISOR eval - PPx: IV famotidine q12h Renal/ - Electrolytes WNL, Creatinine elevated secondary to presumed felt to have contrast induced nephrotoxicity, up to 1.72 today - lisinopril held - Orona to be discontinued today - Strict I/Os ID - Concern for pneumonia, with understanding of immunosuppression given current cancer - Antibiotics: vancomycin and Zosyn (day 6). Completed 5 days azithromycin. - No leukocytosis - Monitor fever curve Endo - DM: sugars elevated. Likely secondary to steroid use. Transition off drip. Monitor BG as per ICU protocol Heme - History of B cell lymphoma, for chemotherapy post acute illness - H/H stable at 8.8. Coag WNL - Trend CBC Access/Line - Peripheral IV x 2 - Port VTE Prophylaxis - Heparin 5000 SC q12h FULL CODE Resident Physician Supervision Note: I was present with Dr. Oreilly during the history and exam. I discussed the case with the resident and agree with the findings and plan as documented in the note. Any exceptions or clarifications are listed here: Patient with diagnosed B-cell lymphoma (s/p A-port, not started on chemotherapy yet), admitted for shortness of breath on 09/09, thought to have a component of fluid overload, also having a stridorous component. She was on steroids, diuretics, antibiotics, however, on 09/14 she had confusion and severe respiratory distress, requiring intubation. She remained intubated yesterday, not waking up fully off sedation, but towards evening time she managed to self-extubate and her mental status improved significantly. Used BIPAP overnight. No stridor noted at any point after extubation She is also recovering from MARIKA, Cr peaked at 3.39, today is 1.75. Uncontrolled DM, on insulin drip now Plan: Of sedation completely Resume Effexor, Trazodone and Buspar. Resume gabapentin CT brain reviewed, unremarkable. Mental status returned to baseline, no need for further work-up Needs to use NIV for now, likely has undiagnosed sleep apnea. Continue diuretics, on bid Lasix, maintain negative balance. On azithromycin, Zosyn and Vanco (was on Levaquin). May discontinue azithromycin. Resume ASA, statin. Continue steroids, decrease to q 8 Insulin drip for glycemic control. Transition to long-acting insulin D/c Orona Passed swallow evaluation, starting diet OOB in chair DVT prophylaxis: SC heparin tid Critical care time spent with the patient, consultants, reviewing the chart, greater than 25 minutes Documented By: Minh Bliss MD Consults & Procedures Consultants: Cardiology Critical care Heme onc Nephrology Pulmonology Procedures: Intubation 09/14/17 Data Medications: Current Inpatient Medications Medications (Trade) Dose Ordered Sig/Chantale Route Start Time Stop Time Status Last Admin Dose Admin Glucose (Glucose 40% Gel) 15-30 GRAMS 15 GRAMS... UD PRN PO 09/10/17 01:45 10/10/17 01:44 Glucose (Glucose Chew Tab) 4-8 Tablets 4 Tabl... UD PRN PO 09/10/17 01:45 10/10/17 01:44 Dextrose (Dextrose 50% 50ML Syringe) 25-50ML OF 50% DW IV FOR... UD PRN IV 09/10/17 01:45 10/10/17 01:44 09/15/17 14:44 25 ML Glucagon (Glucagon Inj) 1 mg UD PRN SQ 09/10/17 01:45 10/10/17 01:44 Miscellaneous Information (Consult Glycemic Management Pharmacy) 1 ea UD PRN N/A 09/10/17 06:34 10/10/17 06:33 Ipratropium [place] (Atrovent 0.02% 0.5MG/2.5ML Neb) 0.5 mg Q4H PRN INH 09/10/17 06:30 10/10/17 06:29 09/14/17 12:54 0.5 MG Levalbuterol (Xopenex 0.63 Mg/ 3 Ml Neb) 0.63 mg Q4H PRN INH 09/10/17 06:30 10/10/17 06:29 09/14/17 12:54 0.63 MG Heparin Sodium (Porcine) (Heparin 100 Unit/ml 5ml Flush) 5 ml PRN PRN IV 09/11/17 01:15 10/11/17 01:14 09/13/17 06:20 5 ML Hydromorphone HCl (Dilaudid Inj) 0.5 mg Q4 PRN IV 09/11/17 14:00 09/25/17 13:59 09/14/17 12:43 0.5 MG Vancomycin HCl (Consult) 1 ea UD PRN N/A 09/11/17 18:30 10/11/17 18:29 Piperacillin Sod/ Tazobactam Sod (Consult) 1 ea UD PRN N/A 09/11/17 18:30 10/11/17 18:29 Mupirocin (Bactroban 2% Oint) 1 appln BID EXT 09/12/17 09:00 09/17/17 08:59 09/15/17 20:05 1 APPLN Vancomycin HCl 1750 mg/Sodium Chloride 535 ml @ 200 mls/hr DAILY@1200 IV 09/14/17 12:00 09/21/17 11:59 09/15/17 12:14 200 MLS/HR Piperacillin Sod/ Tazobactam Sod 4.5 gm/Dextrose 120 ml @ 30 mls/hr Q8H IV 09/14/17 10:00 09/17/17 23:59 09/16/17 01:42 30 MLS/HR Lorazepam (Ativan Inj) 1 mg Q2H PRN IV 09/14/17 17:30 10/14/17 17:29 Methylprednisolone Sodium Succinate 40 mg/Syringe 0.64 ml @ 1.5 mls/min Q6 IV 09/14/17 18:00 10/14/17 17:59 09/16/17 05:36 1.5 MLS/MIN Metoprolol Tartrate (Lopressor Iv) 5 mg Q6 IV. 09/14/17 18:00 10/14/17 17:59 09/16/17 00:59 5 MG Famotidine 20 mg/ Syringe 5 ml @ 2.5 mls/min Q12H IV 09/14/17 20:00 10/14/17 19:59 09/15/17 20:04 2.5 MLS/MIN Azithromycin 500 mg/Dextrose 255 ml @ 125 mls/hr DAILY@1900 IV 09/14/17 19:00 09/16/17 23:59 09/15/17 20:04 125 MLS/HR Insulin Aspart (novoLOG ASPART) [facility] 09/15/17 08:00 10/15/17 07:59 Insulin Human Regular 250 units/ Sodium Chloride 252.5 ml @ 0 mls/hr Q24H IV 09/14/17 23:45 10/14/17 23:44 09/14/17 23:52 4.3 MLS/HR Propofol (Diprivan Iv Emulsion 100ml Vial) 1 dose UD PRN IV 09/15/17 06:30 09/18/17 06:29 09/15/17 11:10 1 DOSE Furosemide 40 mg/ Syringe 4 ml @ 4 mls/min BID IV 09/15/17 09:00 10/15/17 08:59 09/15/17 20:08 4 MLS/MIN Heparin Sodium (Porcine) (Heparin Sq 5000 Unit/0.5ml) 5,000 unit Q8@0600,1400,2200 SQ 09/15/17 14:00 10/15/17 13:59 09/16/17 05:37 5,000 UNIT Enteral Nutritional Formula (Peptamen Intense VHP) 1,000 ml UD PRN OG 09/15/17 10:00 10/15/17 09:59 09/15/17 17:08 1,000 ML Dexmedetomidine HCl 200 mcg/ Sodium Chloride 50 ml @ 0 mls/hr Q0M IV 09/15/17 13:25 09/19/17 13:24 09/15/17 21:59 22.8 MLS/HR Ipratropium [place] (Atrovent 0.02% 0.5MG/2.5ML Neb) 0.5 mg Q4R INH 09/16/17 04:00 10/16/17 03:59 09/16/17 07:09 0.5 MG Levalbuterol (Xopenex 0.63 Mg/ 3 Ml Neb) 0.63 mg Q4R INH 09/16/17 01:00 10/16/17 00:59 09/16/17 07:09 0.63 MG Vital Signs: Date Time Temp Pulse Resp B/P (MAP) Pulse Ox O2 Delivery O2 Flow Rate FiO2 09/16/17 07:11 82 18 96 Nasal Cannula 2.0 09/16/17 06:00 36.8 81 18 120/71 (87) 99 Nasal Cannula 2.0 Humidified Oxygen 09/16/17 04:00 36.9 12 105/69 (81) 99 BiPAP 28 09/16/17 04:00 96 BiPAP 28 09/16/17 02:00 36.7 76 19 100/67 (78) 95 BiPAP 28 09/16/17 01:47 74 94 28 09/16/17 01:46 73 22 99 BiPAP/CPAP 28 09/16/17 00:59 83 109/70 09/16/17 00:00 36.8 79 12 110/70 (83) 99 BiPAP 28 09/16/17 00:00 99 BiPAP 35 09/15/17 23:03 101 99 28 09/15/17 22:00 36.7 73 20 86/61 (69) 99 BiPAP 35 09/15/17 20:30 105 99 35 09/15/17 20:00 36.8 75 20 97/70 (79) 100 Mechanical Ventilator 35 09/15/17 20:00 35 09/15/17 20:00 99 Mechanical Ventilator 35.0 35 09/15/17 19:58 35 09/15/17 18:11 35 09/15/17 18:00 71 13 90/60 (70) 99 Mechanical Ventilator 35 09/15/17 17:08 76 102/69 09/15/17 16:00 35 09/15/17 16:00 Mechanical Ventilator 35 09/15/17 16:00 37.2 67 12 91/61 (71) 99 Mechanical Ventilator 35 09/15/17 14:21 35 09/15/17 14:00 91 13 120/70 (87) 97 Mechanical Ventilator 35 09/15/17 12:15 89 122/75 09/15/17 12:00 35 09/15/17 12:00 37.2 90 14 122/75 (91) 97 Mechanical Ventilator 35 09/15/17 12:00 Mechanical Ventilator 35 09/15/17 11:29 35 09/15/17 10:00 108 23 150/83 (105) 94 Mechanical Ventilator 35.0 Laboratory Results: Last 24 Hours Test 09/15/17 10:05 09/15/17 11:00 09/15/17 12:22 09/15/17 13:17 Bedside Glucose 138 mg/dl 110 mg/dl 100 mg/dl Test 09/15/17 14:12 09/15/17 14:40 09/15/17 15:15 09/15/17 16:19 Bedside Glucose 93 mg/dl 90 mg/dl 123 mg/dl 105 mg/dl Test 09/15/17 17:25 09/15/17 18:17 09/15/17 19:22 09/15/17 21:19 Bedside Glucose 121 mg/dl 125 mg/dl 139 mg/dl 181 mg/dl Test 09/15/17 21:57 09/15/17 22:21 09/15/17 22:59 09/15/17 23:56 Bedside Glucose 196 mg/dl 184 mg/dl 174 mg/dl Blood Gas Sample Site L Radial Bedside Blood Gas pH (LAB) 7.48 Bedside Blood Gas pCO2 (LAB) 32 mmHg Bedside Blood Gas pO2 (LAB) 124 mmHg Bedside Blood Gas HCO3 (LAB) 23 meq/L Bedside Blood Gas Total CO2 24 mEq/l Bedside Blood Gas Base Excess (LAB) 0.0 meq/L Bedside Blood Gas O2 Saturation 99.0 % Rashad Test Pass Oxygen Delivery Device BIPAP Bedside Oxygen Rate (breaths/min) 22 Bedside FiO2 35 % Blood Gas IPAP 15 Test 09/16/17 00:56 09/16/17 01:09 09/16/17 03:04 09/16/17 04:49 Bedside Glucose 167 mg/dl 139 mg/dl 145 mg/dl Blood Gas Sample Site L Radial Bedside Blood Gas pH (LAB) 7.44 Bedside Blood Gas pCO2 (LAB) 34 mmHg Bedside Blood Gas pO2 (LAB) 66 mmHg Bedside Blood Gas HCO3 (LAB) 23 meq/L Bedside Blood Gas Total CO2 24 mEq/l Bedside Blood Gas Base Excess (LAB) -1.0 meq/L Bedside Blood Gas O2 Saturation 94.0 % Rashad Test Pass Oxygen Delivery Device BIPAP Bedside Oxygen Rate (breaths/min) 24 Bedside FiO2 28 % Blood Gas IPAP 10 Test 09/16/17 05:29 White Blood Count 15.74 K/uL Red Blood Count 3.06 M/uL Hemoglobin 8.8 g/dL Hematocrit 27.8 % Mean Corpuscular Volume 90.8 fL Mean Corpuscular Hemoglobin 28.8 pg Mean Corpuscular Hemoglobin Concent 31.7 g/dl Platelet Count 514 K/uL Mean Platelet Volume 9.0 fL Neutrophils (%) (Auto) 91.1 % Lymphocytes (%) (Auto) 4.4 % Monocytes (%) (Auto) 4.1 % Eosinophils (%) (Auto) 0.0 % Basophils (%) (Auto) 0.1 % Neutrophils # (Auto) 14.36 K/uL Lymphocytes # (Auto) 0.69 K/uL Monocytes # (Auto) 0.64 K/uL Eosinophils # (Auto) 0.00 K/uL Basophils # (Auto) 0.01 K/uL RDW Standard Deviation 46.1 fL RDW Coefficient of Variation 14.1 % Immature Granulocyte % (Auto) 0.3 % Immature Granulocyte # (Auto) 0.04 K/uL Nucleated RBC Absolute Count (auto) 0.03 K/uL Nucleated Red Blood Cells % 0.2 % Red Blood Cell Morphology Unremarkable Sodium Level 143 mmol/L Potassium Level 4.2 mmol/L Chloride Level 108 mmol/L Carbon Dioxide Level 25 mmol/L Anion Gap 10.0 mmol/L Blood Urea Nitrogen 53 mg/dl Creatinine 1.72 mg/dl Est Creatinine Clear Calc Drug Dose 45.2 ml/min Estimated GFR () 37.9 Estimated GFR (Non- 32.7 BUN/Creatinine Ratio 30.5 Random Glucose 139 mg/dl Calcium Level 8.7 mg/dl Phosphorus Level 3.7 mg/dl Magnesium Level 2.6 mg/dl Procalcitonin 0.21 ng/ml Resident Tracking Resident Involvement: Resident Care Provided Care Provided: Adult Hospital Medicine
[2017-09-16] MEDS ORDERED: ASPIRIN 81 MG ECTAB PO ONE (10:10)
[2017-09-16] MEDS ORDERED: ATORVASTATIN 40 MG TAB PO ONE (10:10)
[2017-09-16 10:52] LABS: LEGIONELLA ANTIGEN NOT DETECTED (NOT DETECTED)
[2017-09-16] MEDS ORDERED: VANCOMYCIN TROUGH ONE ×2 (11:30→13:00)
--- NOTE | 2017-09-16 12:22 | Pharmacy Progress Note ---
Glycemic: Assessment & Plan Date of Service Sep 16, 2017. Assessment & Plan The patient was on a drip steadily receiving 1.9 units/hr for the past ~10 hours. BSGs ranging 105 - 184 mg/dl over the past 24hrs, with only trophic tube feeds running. IV solumedrol has been reduced from 40mg q 6 to 40mg q8. Patient self extubated overnight Will transition of the insulin drip with the following insulin regimen: * Basal insulin: Lantus 38 units once (1000) Levemir BID (starting at 2100) - If BSG <110: 0 units - If BSG 110-140: 9 units - If BSG > 140: 19 units * Correctional Insulin: Novolog Correction per scale ACHS (to start at 1600 when drip turned off) Goal Range: Low 120 mg/dL - High 150 mg/dL Correction Factor: 20 mg/dL/unit * Prandial insulin: Per carb ratio of 1 unit per 7 grams CHO consumed ( to start at 1600 when drip turned off) * Diet: Diabetic diet ordered by MD Pharmacy will continue to monitor patient daily and write orders per [facility] inpatient glycemic control protocol. Thanks. * Please note that the plan above was derived based on current level of insulin resistance and hospital stress. These recommendations are appropriate for inpatient admission only. Plan of care upon discharge will need to be reassessed to avoid potential outpatient hypo/hyperglycemia.
--- NOTE | 2017-09-16 12:37 | Pharmacy Progress Note ---
Pharmacy Abx Dose Short Note Date of Service Sep 16, 2017. Assessment & Plan Assessment 57 year old female receiving vancomycin and zosyn for treatment of pneumonia ( MRSA +) Day # 6 of antimicrobial therapy. Patient self extubated overnight, clinically improving. Azithromycin was discontinued today. Plan Vancomycin * Trough level of 21.8 mcg/mL is slightly supratherapeutic, but fluctuating renal function * Change to 1500 mg IV every 24 hours starting at 1330 * Goal trough level for : 15 to 20 mcg/mL * Trough or random level ordered for: 09/18/17 @ 1300 Pharmacy will continue to follow and will adjust dose/frequency as necessary. Thank you.
[2017-09-16] MEDS ORDERED: VANCOMYCIN INJ 1,500 MG in SODIUM CHLORIDE 0.9% 500ML 500 ML IV SCH (13:30)
[2017-09-16] MEDS: GABAPENTIN 300 MG CAP PO SCH ×2 (13:35→20:45)
--- NOTE | 2017-09-16 14:15 | Pulmonology Progress Note ---
Pulmonary Progress Note Date of Service Sep 16, 2017. Attending Dr. Nicholson Subjective Patient self-extubated last night. She was then placed on BiPAP at 15/5 with FiO2 of 35. She did saturate well overnight on BiPAP and is currently on 2 L via nasal cannula and continues to saturated well. Patient is feeling much improved today. She is awake and making conversation. She states that her breathing is not labored, and she has no chest pain/tightness. She is currently on nasal cannula O2. She has a mild cough this morning and very slight sore throat, but otherwise has no real complaints. Discussed this patient with Dr. Bliss as well. He feels that patient likely would benefit from CPAP or BiPAP for sleep apnea. The patient states that she did have a sleep study completed a "while" ago but could not tolerate the masks. She never tried a nasal mask, and she is tolerating the current BiPAP mask used over night last night. She does have home O2 for night-time use and PRN. Labs reviewed 09/16: WBC 15.74 Hgb 8.8 Creatinine 1.72 - slightly increased from 1.55 BUN 53 Serum bicarb 25 POC ABG 09/16: pH 7.44 pCO2 34 pO2 66 HCO3 23 Medications reviewed: Atrovent 0.5 mg neb Q4H INH Xopenex neb 0.63 mg Q4R INH Heparin Furosemide 40 mg BID SoluMedrol 40 mg Q6H Vancomycin, Zosyn Objective VS reviewed 09/16 0800: Afebrile HR 82 bpm RR 22 bpm BP 199/67 SaO2 97% on 2 L General: Patient is awake, alert, cooperative, and in no acute distress. Obese Head: Normocephalic, Atraumatic. ENT: PERRLA, No discharge, EOMI, Sclera normal Neck: Normal ROM. Trachea midline. No stridor Respiratory: Mild wheeze noted in left upper lobe. No respiratory distress. No accessory muscle use. Cardiovascular: Regular rate and rhythm. Abdomen: Normal bowel sounds hear throughout. Extremities: Trace edema, no cyanosis. Neuro: Alert. CN II-XII grossly intact. Sensation and motor function grossly intact. Psych: Mood and affect are normal. Assessment & Plan Dyspnea Cough B-cell lymphoma Ischemic cardiomyopathy Acute on chronic renal failure Congestive heart failure Possible pneumonia History of DANGELO Morbid obesity Patient shortness of breath,dyspnea, cough are multifactorial in nature. Self- extubated last night. On BiPAP over night and saturated well. Currently on nasal cannula O2. Continue with supplemental oxygen to maintain SaO2 > 92%. Lung function seems improved. Will begin tapering IV SoluMedrol. Current dose of 40 mg Q6h. Will decrease to 40 mg Q8h and monitor respiratory status closely. Continue to taper as tolerated. Recommend continuing BiPAP at night. Patient likely needs CPAP, but will need further evaluation as an outpatient for sleep apnea. Will either need to acquire previous records from sleep study or repeat overnight pulse oximetry study prior to discharge to arrange BiPAP for at home. Recommend completing 5-7 days of abx therapy pending further improvement. Continue bronchodilators. She will need full PFT's as an outpatient. Heme Onc following as well. Pulm will follow. Patient plan reviewed and agreed upon. Data Medications: Current Inpatient Medications Medications (Trade) Dose Ordered Sig/Chantale Route Start Time Stop Time Status Last Admin Dose Admin Glucose (Glucose 40% Gel) 15-30 GRAMS 15 GRAMS... UD PRN PO 09/10/17 01:45 10/10/17 01:44 Glucose (Glucose Chew Tab) 4-8 Tablets 4 Tabl... UD PRN PO 09/10/17 01:45 10/10/17 01:44 Dextrose (Dextrose 50% 50ML Syringe) 25-50ML OF 50% DW IV FOR... UD PRN IV 09/10/17 01:45 10/10/17 01:44 09/15/17 14:44 25 ML Glucagon (Glucagon Inj) 1 mg UD PRN SQ 09/10/17 01:45 10/10/17 01:44 Miscellaneous Information (Consult Glycemic Management Pharmacy) 1 ea UD PRN N/A 09/10/17 06:34 10/10/17 06:33 Ipratropium [place] (Atrovent 0.02% 0.5MG/2.5ML Neb) 0.5 mg Q4H PRN INH 09/10/17 06:30 10/10/17 06:29 09/14/17 12:54 0.5 MG Levalbuterol (Xopenex 0.63 Mg/ 3 Ml Neb) 0.63 mg Q4H PRN INH 09/10/17 06:30 10/10/17 06:29 09/14/17 12:54 0.63 MG Heparin Sodium (Porcine) (Heparin 100 Unit/ml 5ml Flush) 5 ml PRN PRN IV 09/11/17 01:15 10/11/17 01:14 09/13/17 06:20 5 ML Hydromorphone HCl (Dilaudid Inj) 0.5 mg Q4 PRN IV 09/11/17 14:00 09/25/17 13:59 09/14/17 12:43 0.5 MG Vancomycin HCl (Consult) 1 ea UD PRN N/A 09/11/17 18:30 10/11/17 18:29 Piperacillin Sod/ Tazobactam Sod (Consult) 1 ea UD PRN N/A 09/11/17 18:30 10/11/17 18:29 Mupirocin (Bactroban 2% Oint) 1 appln BID EXT 09/12/17 09:00 09/17/17 08:59 09/16/17 09:29 1 APPLN Vancomycin HCl 1750 mg/Sodium Chloride 535 ml @ 200 mls/hr DAILY@1200 IV 09/14/17 12:00 09/21/17 11:59 09/15/17 12:14 200 MLS/HR Piperacillin Sod/ Tazobactam Sod 4.5 gm/Dextrose 120 ml @ 30 mls/hr Q8H IV 09/14/17 10:00 09/17/17 23:59 09/16/17 09:28 30 MLS/HR Lorazepam (Ativan Inj) 1 mg Q2H PRN IV 09/14/17 17:30 10/14/17 17:29 Methylprednisolone Sodium Succinate 40 mg/Syringe 0.64 ml @ 1.5 mls/min Q6 IV 09/14/17 18:00 10/14/17 17:59 09/16/17 05:36 1.5 MLS/MIN Metoprolol Tartrate (Lopressor Iv) 5 mg Q6 IV. 09/14/17 18:00 10/14/17 17:59 09/16/17 00:59 5 MG Famotidine 20 mg/ Syringe 5 ml @ 2.5 mls/min Q12H IV 09/14/17 20:00 10/14/17 19:59 09/16/17 09:28 2.5 MLS/MIN Insulin Aspart (novoLOG ASPART) SLIDING SCALE PCHS SC 09/15/17 08:00 10/15/17 07:59 Insulin Human Regular 250 units/ Sodium Chloride 252.5 ml @ 0 mls/hr Q24H IV 09/14/17 23:45 10/14/17 23:44 09/14/17 23:52 4.3 MLS/HR Furosemide 40 mg/ Syringe 4 ml @ 4 mls/min BID IV 09/15/17 09:00 10/15/17 08:59 09/16/17 09:29 4 MLS/MIN Heparin Sodium (Porcine) (Heparin Sq 5000 Unit/0.5ml) 5,000 unit Q8@0600,1400,2200 SQ 09/15/17 14:00 10/15/17 13:59 09/16/17 05:37 5,000 UNIT Enteral Nutritional Formula (Peptamen Intense VHP) 1,000 ml UD PRN OG 09/15/17 10:00 10/15/17 09:59 09/15/17 17:08 1,000 ML Dexmedetomidine HCl 200 mcg/ Sodium Chloride 50 ml @ 0 mls/hr Q0M IV 09/15/17 13:25 09/19/17 13:24 09/15/17 21:59 22.8 MLS/HR Ipratropium [place] (Atrovent 0.02% 0.5MG/2.5ML Neb) 0.5 mg Q4R INH 09/16/17 04:00 10/16/17 03:59 09/16/17 07:09 0.5 MG Levalbuterol (Xopenex 0.63 Mg/ 3 Ml Neb) 0.63 mg Q4R INH 09/16/17 01:00 10/16/17 00:59 09/16/17 07:09 0.63 MG Vital Signs: Date Time Temp Pulse Resp B/P (MAP) Pulse Ox O2 Delivery O2 Flow Rate FiO2 09/16/17 08:00 Nasal Cannula 2.0 09/16/17 08:00 36.9 82 22 119/67 (84) 97 Nasal Cannula 2.0 Humidified Oxygen 09/16/17 07:11 82 18 96 Nasal Cannula 2.0 09/16/17 06:00 36.8 81 18 120/71 (87) 99 Nasal Cannula 2.0 Humidified Oxygen 09/16/17 04:00 36.9 12 105/69 (81) 99 BiPAP 28 09/16/17 04:00 96 BiPAP 28 09/16/17 02:00 36.7 76 19 100/67 (78) 95 BiPAP 28 09/16/17 01:47 74 94 28 09/16/17 01:46 73 22 99 BiPAP/CPAP 28 09/16/17 00:59 83 109/70 09/16/17 00:00 36.8 79 12 110/70 (83) 99 BiPAP 28 09/16/17 00:00 99 BiPAP 35 09/15/17 23:03 101 99 28 09/15/17 22:00 36.7 73 20 86/61 (69) 99 BiPAP 35 09/15/17 20:30 105 99 35 09/15/17 20:00 36.8 75 20 97/70 (79) 100 Mechanical Ventilator 35 09/15/17 20:00 35 09/15/17 20:00 99 Mechanical Ventilator 35.0 35 09/15/17 19:58 35 09/15/17 18:11 35 09/15/17 18:00 71 13 90/60 (70) 99 Mechanical Ventilator 35 09/15/17 17:08 76 102/69 09/15/17 16:00 35 09/15/17 16:00 Mechanical Ventilator 35 09/15/17 16:00 37.2 67 12 91/61 (71) 99 Mechanical Ventilator 35 09/15/17 14:21 35 09/15/17 14:00 91 13 120/70 (87) 97 Mechanical Ventilator 35 09/15/17 12:15 89 122/75 09/15/17 12:00 35 09/15/17 12:00 37.2 90 14 122/75 (91) 97 Mechanical Ventilator 35 09/15/17 12:00 Mechanical Ventilator 35 09/15/17 11:29 35 09/15/17 10:00 108 23 150/83 (105) 94 Mechanical Ventilator 35.0 Laboratory Results: Last 24 Hours Test 09/15/17 10:05 09/15/17 11:00 09/15/17 12:22 09/15/17 13:17 Bedside Glucose 138 mg/dl 110 mg/dl 100 mg/dl Test 09/15/17 14:12 09/15/17 14:40 09/15/17 15:15 09/15/17 16:19 Bedside Glucose 93 mg/dl 90 mg/dl 123 mg/dl 105 mg/dl Test 09/15/17 17:25 09/15/17 18:17 09/15/17 19:22 09/15/17 21:19 Bedside Glucose 121 mg/dl 125 mg/dl 139 mg/dl 181 mg/dl Test 09/15/17 21:57 09/15/17 22:21 09/15/17 22:59 09/15/17 23:56 Bedside Glucose 196 mg/dl 184 mg/dl 174 mg/dl Blood Gas Sample Site L Radial Bedside Blood Gas pH (LAB) 7.48 Bedside Blood Gas pCO2 (LAB) 32 mmHg Bedside Blood Gas pO2 (LAB) 124 mmHg Bedside Blood Gas HCO3 (LAB) 23 meq/L Bedside Blood Gas Total CO2 24 mEq/l Bedside Blood Gas Base Excess (LAB) 0.0 meq/L Bedside Blood Gas O2 Saturation 99.0 % Rashad Test Pass Oxygen Delivery Device BIPAP Bedside Oxygen Rate (breaths/min) 22 Bedside FiO2 35 % Blood Gas IPAP 15 Test 09/16/17 00:56 09/16/17 01:09 09/16/17 03:04 09/16/17 04:49 Bedside Glucose 167 mg/dl 139 mg/dl 145 mg/dl Blood Gas Sample Site L Radial Bedside Blood Gas pH (LAB) 7.44 Bedside Blood Gas pCO2 (LAB) 34 mmHg Bedside Blood Gas pO2 (LAB) 66 mmHg Bedside Blood Gas HCO3 (LAB) 23 meq/L Bedside Blood Gas Total CO2 24 mEq/l Bedside Blood Gas Base Excess (LAB) -1.0 meq/L Bedside Blood Gas O2 Saturation 94.0 % Rashad Test Pass Oxygen Delivery Device BIPAP Bedside Oxygen Rate (breaths/min) 24 Bedside FiO2 28 % Blood Gas IPAP 10 Test 09/16/17 05:29 White Blood Count 15.74 K/uL Red Blood Count 3.06 M/uL Hemoglobin 8.8 g/dL Hematocrit 27.8 % Mean Corpuscular Volume 90.8 fL Mean Corpuscular Hemoglobin 28.8 pg Mean Corpuscular Hemoglobin Concent 31.7 g/dl Platelet Count 514 K/uL Mean Platelet Volume 9.0 fL Neutrophils (%) (Auto) 91.1 % Lymphocytes (%) (Auto) 4.4 % Monocytes (%) (Auto) 4.1 % Eosinophils (%) (Auto) 0.0 % Basophils (%) (Auto) 0.1 % Neutrophils # (Auto) 14.36 K/uL Lymphocytes # (Auto) 0.69 K/uL Monocytes # (Auto) 0.64 K/uL Eosinophils # (Auto) 0.00 K/uL Basophils # (Auto) 0.01 K/uL RDW Standard Deviation 46.1 fL RDW Coefficient of Variation 14.1 % Immature Granulocyte % (Auto) 0.3 % Immature Granulocyte # (Auto) 0.04 K/uL Nucleated RBC Absolute Count (auto) 0.03 K/uL Nucleated Red Blood Cells % 0.2 % Red Blood Cell Morphology Unremarkable Sodium Level 143 mmol/L Potassium Level 4.2 mmol/L Chloride Level 108 mmol/L Carbon Dioxide Level 25 mmol/L Anion Gap 10.0 mmol/L Blood Urea Nitrogen 53 mg/dl Creatinine 1.72 mg/dl Est Creatinine Clear Calc Drug Dose 45.2 ml/min Estimated GFR () 37.9 Estimated GFR (Non- 32.7 BUN/Creatinine Ratio 30.5 Random Glucose 139 mg/dl Calcium Level 8.7 mg/dl Phosphorus Level 3.7 mg/dl Magnesium Level 2.6 mg/dl Procalcitonin 0.21 ng/ml
[2017-09-16] MEDS ORDERED: DC IV INSULIN INFUSION ONE (16:00)
--- NOTE | 2017-09-16 16:52 | Progress Note ---
Internal Med Progress Note Date of Service: Sep 16, 2017. Provider Documentation: SUBJECTIVE: awake and alert ,sitting up on edge of bed , finishing dinner no complain of Hypoxia, SOB has dry non productive cough on 02 via nasal canula vitals remains stable OBJECTIVE: Vital Signs-as noted below Exam: General-conversing ,pleasant, no sign of distress Eyes-sclera non icteric , PERRLA/EOMI Lungs-diminished , no wheeze or rales noted Heart-regular Abdomen-soft, non tender Extremities-no lower ext edema Neuro-AAo x3, no focal deficit Lab data as noted below. ASSESSMENT & PLAN: ACUTE HYPOXEMIC RESPIRATORY FAILURE : requiring mechanical ventilation multifactorial -Acute CHF with systolic dysfunction /pneumonia Cxray : pulmonary edema and small bilat pleural effusions persists , Progressive left suprahilar airspace opacity which could represent a developing pneumonia or a component of pulmonary edema ECHO shows EF 35 -40 % Cardiology /Pulmonary critical care following cont on diuresis lasix 40 mg IV BID empiric Abx with Vanco/Zosyn /Zithromax Zithromax D/oz as received 5 days tx self extubated yesterday , resp status has been stable since on 2 L 02 vial nasal canula MARIKA : Due to contrast induced nephropathy- had CTA of chest /diuretics Cr peaked to > 3, improved to 1.5-1.7 today appreciate input from Nephrology diuresis continued to improved pulmonary status on Lasix 40 mg IV BID will change to PO Lasix in AM cont to monitor renal function closely Elevated troponin likely NSTEMI from demand ischemia ECHO ; no wall motion abnormality pt denies of any pain or discomfort no complain of SOB or chest heaviness DM type 2 BSG elevated due to IV steroid insulin SSI HTN Cont on IV Lopressor /Lasix 40 mg IV BID B Cell Lymphoma recently diagnosed not started on Chemo yet appreciate input form Heme onc pt will need to recover form acute illness prior to consider chemo tx DVT PROPHYLAXIS : sub q heparin CODE STATUS Ful code DISPOSITION stable to be transferred jojo PCU PT/OT eval requested Social service consulted for discharge planning Vital Signs: Date Time Temp Pulse Resp B/P (MAP) Pulse Ox O2 Delivery O2 Flow Rate FiO2 09/16/17 16:00 Nasal Cannula 2.0 09/16/17 16:00 36.8 88 21 116/80 (92) 95 Nasal Cannula 2.0 Humidified Oxygen 09/16/17 15:07 84 18 99 Nasal Cannula 2.0 09/16/17 14:00 87 20 106/59 (75) 99 Nasal Cannula 2.0 Humidified Oxygen 09/16/17 12:26 84 133/74 09/16/17 12:00 36.8 87 21 133/74 (93) 95 Nasal Cannula 2.0 Humidified Oxygen 09/16/17 12:00 Nasal Cannula 2.0 09/16/17 11:31 75 18 97 Nasal Cannula 2.0 09/16/17 10:00 80 12 120/75 (90) 98 Nasal Cannula 2.0 Humidified Oxygen 09/16/17 08:00 Nasal Cannula 2.0 09/16/17 08:00 36.9 82 22 119/67 (84) 97 Nasal Cannula 2.0 Humidified Oxygen 09/16/17 08:00 Nasal Cannula BiPAP 09/16/17 07:11 82 18 96 Nasal Cannula 2.0 09/16/17 06:00 36.8 81 18 120/71 (87) 99 Nasal Cannula 2.0 Humidified Oxygen 09/16/17 04:00 36.9 12 105/69 (81) 99 BiPAP 28 09/16/17 04:00 96 BiPAP 28 09/16/17 02:00 36.7 76 19 100/67 (78) 95 BiPAP 28 09/16/17 01:47 74 94 28 09/16/17 01:46 73 22 99 BiPAP/CPAP 28 09/16/17 00:59 83 109/70 09/16/17 00:00 36.8 79 12 110/70 (83) 99 BiPAP 28 09/16/17 00:00 99 BiPAP 35 09/15/17 23:03 101 99 28 09/15/17 22:00 36.7 73 20 86/61 (69) 99 BiPAP 35 09/15/17 20:30 105 99 35 09/15/17 20:00 36.8 75 20 97/70 (79) 100 Mechanical Ventilator 35 09/15/17 20:00 35 09/15/17 20:00 99 Mechanical Ventilator 35.0 35 09/15/17 19:58 35 09/15/17 18:11 35 09/15/17 18:00 71 13 90/60 (70) 99 Mechanical Ventilator 35 09/15/17 17:08 76 102/69 Lab Results: Results Past 24 Hours Test 09/15/17 17:25 09/15/17 18:17 09/15/17 19:22 09/15/17 21:19 Range/Units Bedside Glucose 121 125 139 181 70-90 mg/dl Test 09/15/17 21:57 09/15/17 22:21 09/15/17 22:59 09/15/17 23:56 Range/Units Bedside Glucose 196 184 174 70-90 mg/dl Blood Gas Sample Site L Radial Bedside Blood Gas pH (LAB) 7.48 7.35-7.45 Bedside Blood Gas pCO2 (LAB) 32 35-46 mmHg Bedside Blood Gas pO2 (LAB) 124 80-95 mmHg Bedside Blood Gas HCO3 (LAB) 23 19-24 meq/L Bedside Blood Gas Total CO2 24 24-31 mEq/l Bedside Blood Gas Base Excess (LAB) 0.0 -9-1.8 meq/L Bedside Blood Gas O2 Saturation 99.0 90-95 % Rashad Test Pass Oxygen Delivery Device BIPAP Bedside Oxygen Rate (breaths/min) 22 Bedside FiO2 35 % Blood Gas IPAP 15 Test 09/16/17 00:56 09/16/17 01:09 09/16/17 03:04 09/16/17 04:49 Range/Units Bedside Glucose 167 139 145 70-90 mg/dl Blood Gas Sample Site L Radial Bedside Blood Gas pH (LAB) 7.44 7.35-7.45 Bedside Blood Gas pCO2 (LAB) 34 35-46 mmHg Bedside Blood Gas pO2 (LAB) 66 80-95 mmHg Bedside Blood Gas HCO3 (LAB) 23 19-24 meq/L Bedside Blood Gas Total CO2 24 24-31 mEq/l Bedside Blood Gas Base Excess (LAB) -1.0 -9-1.8 meq/L Bedside Blood Gas O2 Saturation 94.0 90-95 % Rashad Test Pass Oxygen Delivery Device BIPAP Bedside Oxygen Rate (breaths/min) 24 Bedside FiO2 28 % Blood Gas IPAP 10 Test 09/16/17 05:29 09/16/17 11:31 Range/Units White Blood Count 15.74 4.8-10.8 K/uL Red Blood Count 3.06 4.2-5.4 M/uL Hemoglobin 8.8 12.0-16.0 g/dL Hematocrit 27.8 37-47 % Mean Corpuscular Volume 90.8 80-100 fL Mean Corpuscular Hemoglobin 28.8 25-34 pg Mean Corpuscular Hemoglobin Concent 31.7 32-36 g/dl Platelet Count 514 130-400 K/uL Mean Platelet Volume 9.0 7.4-10.4 fL Neutrophils (%) (Auto) 91.1 % Lymphocytes (%) (Auto) 4.4 % Monocytes (%) (Auto) 4.1 % Eosinophils (%) (Auto) 0.0 % Basophils (%) (Auto) 0.1 % Neutrophils # (Auto) 14.36 1.4-6.5 K/uL Lymphocytes # (Auto) 0.69 1.2-3.4 K/uL Monocytes # (Auto) 0.64 0.11-0.59 K/uL Eosinophils # (Auto) 0.00 0-0.5 K/uL Basophils # (Auto) 0.01 0-0.2 K/uL RDW Standard Deviation 46.1 36.4-46.3 fL RDW Coefficient of Variation 14.1 11.5-14.5 % Immature Granulocyte % (Auto) 0.3 % Immature Granulocyte # (Auto) 0.04 0.00-0.02 K/uL Nucleated RBC Absolute Count (auto) 0.03 0-0 K/uL Nucleated Red Blood Cells % 0.2 % Red Blood Cell Morphology Unremarkable Sodium Level 143 136-145 mmol/L Potassium Level 4.2 3.5-5.1 mmol/L Chloride Level 108 98-107 mmol/L Carbon Dioxide Level 25 21-32 mmol/L Anion Gap 10.0 3-11 mmol/L Blood Urea Nitrogen 53 7-18 mg/dl Creatinine 1.72 0.60-1.20 mg/dl Est Creatinine Clear Calc Drug Dose 45.2 ml/min Estimated GFR () 37.9 Estimated GFR (Non- 32.7 BUN/Creatinine Ratio 30.5 10-20 Random Glucose 139 70-99 mg/dl Calcium Level 8.7 8.5-10.1 mg/dl Phosphorus Level 3.7 2.5-4.9 mg/dl Magnesium Level 2.6 1.8-2.4 mg/dl Procalcitonin 0.21 0-0.5 ng/ml Vancomycin Level Trough 21.8 SEE COMMENT mcg/ml
[2017-09-16] MEDS: HYDROmorphone INJ 0.5 MG/0.5 ML SYR IV PRN (17:07)
[2017-09-16] MEDS: TRAZODONE HCL 50 MG TAB PO SCH (20:46)
[2017-09-16] MEDS ORDERED: INSULIN DETEMIR FLEXPEN/FLEX TOUCH 100 UNITS/ML 3ML SC SCH (21:00)
[2017-09-17] VITALS (16 sets, daily range): BP systolic 112–133; BP diastolic 75–88; PULSE 69–99; TEMP 36.4–37; O2SAT 94–99
[2017-09-17] MEDS: METOPROLOL TARTRATE 1 MG/ML VIAL IV. SCH ×2 (00:38→06:17)
[2017-09-17] MEDS ORDERED: INSULIN ASPART 100 UNITS/ML 3 ML PEN SC ONE (02:00)
[2017-09-17] MEDS: PIPERACILL/TAZOBAC IV 4.5 GM in DEXTROSE 5% 100ML IV SCH ×2 (02:17→09:41)
[2017-09-17 04:34] LABS: BASO % 0.1 %; BASO ABS # 0.01 K/uL (0-0.2); COMPLETE YES; HEMATOCRIT 29.6 % (37-47); IG% 0.8 %; LYMPH % 6.2 %; LYMPH ABS # 0.82 K/uL (1.2-3.4); MEAN CELL VOLUME 91.1 fL (80-100); MEAN CORPUSCULAR HGB CONC 30.7 g/dl (32-36); MEAN PLATELET VOLUME 8.7 fL (7.4-10.4); MONO % 6.2 %; NEUT % 86.7 %; PLATELET COUNT 594 K/uL (130-400); RED BLOOD COUNT 3.25 M/uL (4.2-5.4); WHITE BLOOD COUNT 13.26 K/uL (4.8-10.8)
[2017-09-17 04:52] LABS: CALCIUM 8.5 mg/dl (8.5-10.1); CREATININE 1.69 mg/dl (0.60-1.20); MAGNESIUM 2.4 mg/dl (1.8-2.4); POTASSIUM 4.5 mmol/L (3.5-5.1)
[2017-09-17 04:54] LABS: ALB/GLOB RATIO 0.6 (0.9-2); PHOSPHORUS 3.4 mg/dl (2.5-4.9)
[2017-09-17] MEDS: METHYLPREDNISOLONE IV 40 MG in SYRINGE 0 ML IV SCH (06:09)
[2017-09-17] MEDS: HEPARIN SOD 5000 UNIT/0.5 ML CARP SQ SCH ×3 (06:12→21:02)
[2017-09-17] MEDS: LEVALBUTEROL 0.63MG/3 ML NEB INH SCH ×5 (07:11→23:12)
[2017-09-17] MEDS: IPRATROPIUM BROMIDE NEB SOLN 0.02% 2.5 ML VIAL INH SCH ×5 (07:11→23:12)
[2017-09-17] MEDS ORDERED: SODIUM CHLORIDE 0.9% 10ML FLUSH IV ONE (07:15)
[2017-09-17] MEDS ORDERED: SUCCINYLCHOLINE CHLORIDE 20 MG/ML 10 ML VIAL IV ONE (07:15)
[2017-09-17] MEDS: REL PO SCH ×2 (07:47)
[2017-09-17] MEDS: VENLAFAXINE PO SCH ×2 (07:47)
[2017-09-17] MEDS: GABAPENTIN 300 MG CAP PO SCH ×3 (07:48→20:26)
[2017-09-17] MEDS: ASPIRIN 81 MG ECTAB PO SCH (07:48)
[2017-09-17] MEDS: ATORVASTATIN 40 MG TAB PO SCH (07:48)
[2017-09-17] MEDS: INSULIN ASPART 100 UNITS/ML 3 ML PEN SC SCH ×4 (07:58→21:01)
[2017-09-17] MEDS: INSULIN DETEMIR FLEXPEN/FLEX TOUCH 100 UNITS/ML 3ML SC SCH ×2 (07:59→21:01)
[2017-09-17] MEDS ORDERED: VENLAFAXINE HCL 37.5 MG TAB PO SCH (09:00)
[2017-09-17] MEDS: FUROSEMIDE INJ 40 MG in SYRINGE 0 ML IV SCH (09:28)
[2017-09-17] MEDS ORDERED: ALBUTEROL HFA 8 GM INHALER INH PRN (11:45)
--- NOTE | 2017-09-17 12:39 | Pharmacy Progress Note ---
Glycemic: Assessment & Plan Date of Service Sep 17, 2017. Assessment & Plan The patient is currently receiving 77 units of insulin per day. BSGs ranging 145 - 232 mg/dl over the past 24hrs. * Patient transitioned form insulin drip yesterday. * Correction factor/carb ratio tightened last night given elevated sugars, will continue this today. * Lantus will be slightly increased to 24 units BID given overall elevated sugars and considering both weight based dosing and drip requirements. * Of note, methylprednisolone was decreased again today to 40mg q12. Plan: * Basal insulin: Increase to Lantus 24 units every 12 hours * Correctional Insulin: Novolog Correction per scale ACHS Goal Range: Low 120 mg/dL - High 150 mg/dL Correction Factor: 15 mg/dL/unit * Prandial insulin: Per carb ratio of 1 unit per 5 grams CHO consumed Pharmacy will continue to monitor patient daily and write orders per [facility] inpatient glycemic control protocol. Thanks. * Please note that the plan above was derived based on current level of insulin resistance and hospital stress. These recommendations are appropriate for inpatient admission only. Plan of care upon discharge will need to be reassessed to avoid potential outpatient hypo/hyperglycemia.
[2017-09-17] MEDS ORDERED: VANCOMYCIN TROUGH ONE (13:00)
[2017-09-17] MEDS: ASCORBIC ACID 500 MG TAB PO SCH ×2 (14:00→20:25)
--- NOTE | 2017-09-17 15:10 | Pulmonology Progress Note ---
Pulmonary Progress Note Date of Service Sep 17, 2017. Attending Dr. Nicholson Subjective Patient is doing well sitting up in bed today but continues to note intermittent dyspnea with minimal exertion. She currently saturating on 2 liters nasal cannula able to complete full sentences without notable shortness of breath. She expressed to me progressive dyspnea on exertion over the preceding 6 months which did appear to dramatically worsened in the 2-3 weeks prior to her admission. She does note increasing lower extremity edema at this time as well. Objective Vital signs reviewed stable on 2 liters nasal cannula at this time and BiPAP during sleep I/Os: Total 3.5 liters positive General: awake, alert, cooperative, and in no acute distress. Obese Head: Normocephalic, Atraumatic. ENT: PERRLA, No discharge, EOMI, Sclera normal Neck: Normal ROM. Trachea midline. No stridor Respiratory: Minimal rhonchi appreciated with dullness to percussion of the left and right lower lobes bilaterally Cardiovascular: Regular rate and rhythm. Abdomen: Normal bowel sounds hear throughout. Extremities: 1+ pitting edema bilateral dependent regions Neuro: Alert. CN II-XII grossly intact. Sensation and motor function grossly intact. Psych: Mood and affect are normal. Assessment & Plan 57-year-old female with hypoxemia and recently intubated for altered mental status with airway protection: Current Issues: Dyspnea at rest, large B-cell lymphoma, ischemic cardiomyopathy with reduced EF, acute on chronic renal failure, possible sleep apnea 1. Hypoxia: Patient's hypoxia is most likely combination of acute on chronic renal failure with associated cardiomyopathy creating volume overload status with associated hypoxia. There is an underlying possibility the patient does have large B-cell lymphoma associated systemic vessel invasion which has been noted to be seen in patients large B-cell lymphoma especially associated hypoxemia and hypoalbuminemia. The treatment for this association between large B-cell lymphoma in vascular invasion would be chemotherapeutic agents is notably difficult this time as the patient has acute on chronic renal insufficiency and cardiomyopathy. Dr. Dobbs from Oncology is currently managing this situation. 2. Sleep Apnea: Patient does have an outside diagnosis of sleep apnea and her clinical history as well as physical presentation is consistent. Continue BiPAP at this time as the patient could have central sleep apneas as well as obstructive and is responding well to this current therapy. Also BiPAP is noted to afterload reduce the heart. 3. Steroids: Will contact the primary care team at this time patient is on IV steroids but has no underlying diagnosis of COPD and/or asthma. Unless steroids are being used to help treated another disorder such as the large B- cell lymphoma I suggest we quickly titrate this steroids off. Data Medications: Current Inpatient Medications Medications (Trade) Dose Ordered Sig/Chantale Route Start Time Stop Time Status Last Admin Dose Admin Glucose (Glucose 40% Gel) 15-30 GRAMS 15 GRAMS... UD PRN PO 09/10/17 01:45 10/10/17 01:44 Glucose (Glucose Chew Tab) 4-8 Tablets 4 Tabl... UD PRN PO 09/10/17 01:45 10/10/17 01:44 Dextrose (Dextrose 50% 50ML Syringe) 25-50ML OF 50% DW IV FOR... UD PRN IV 09/10/17 01:45 10/10/17 01:44 09/15/17 14:44 25 ML Glucagon (Glucagon Inj) 1 mg UD PRN SQ 09/10/17 01:45 10/10/17 01:44 Miscellaneous Information (Consult Glycemic Management Pharmacy) 1 ea UD PRN N/A 09/10/17 06:34 10/10/17 06:33 Ipratropium [place] (Atrovent 0.02% 0.5MG/2.5ML Neb) 0.5 mg Q4H PRN INH 09/10/17 06:30 10/10/17 06:29 09/14/17 12:54 0.5 MG Levalbuterol (Xopenex 0.63 Mg/ 3 Ml Neb) 0.63 mg Q4H PRN INH 09/10/17 06:30 10/10/17 06:29 09/14/17 12:54 0.63 MG Heparin Sodium (Porcine) (Heparin 100 Unit/ml 5ml Flush) 5 ml PRN PRN IV 09/11/17 01:15 10/11/17 01:14 09/13/17 06:20 5 ML Hydromorphone HCl (Dilaudid Inj) 0.5 mg Q4 PRN IV 09/11/17 14:00 09/25/17 13:59 09/16/17 17:07 0.5 MG Piperacillin Sod/ Tazobactam Sod (Consult) 1 ea UD PRN N/A 09/11/17 18:30 10/11/17 18:29 Piperacillin Sod/ Tazobactam Sod 4.5 gm/Dextrose 120 ml @ 30 mls/hr Q8H IV 09/14/17 10:00 09/17/17 23:59 09/17/17 09:41 30 MLS/HR Heparin Sodium (Porcine) (Heparin Sq 5000 Unit/0.5ml) 5,000 unit Q8@0600,1400,2200 SQ 09/15/17 14:00 10/15/17 13:59 09/17/17 12:44 5,000 UNIT Ipratropium [place] (Atrovent 0.02% 0.5MG/2.5ML Neb) 0.5 mg Q4R INH 09/16/17 04:00 10/16/17 03:59 09/17/17 14:32 0.5 MG Levalbuterol (Xopenex 0.63 Mg/ 3 Ml Neb) 0.63 mg Q4R INH 09/16/17 01:00 10/16/17 00:59 09/17/17 14:32 0.63 MG Gabapentin (Neurontin Cap) 300 mg TID PO 09/16/17 14:00 10/16/17 13:59 09/17/17 12:37 300 MG Buspirone HCl (Buspar Tab) 20 mg BID PO 09/16/17 21:00 10/16/17 20:59 09/17/17 07:47 20 MG Trazodone HCl (Desyrel Tab) 50 mg HS PO 09/16/17 21:00 10/16/17 20:59 09/16/17 20:46 50 MG Insulin Aspart (novoLOG ASPART) ACHS SC 09/16/17 16:00 10/16/17 15:59 09/17/17 12:39 8 UNITS Aspirin (Ecotrin Tab) 81 mg QAM PO 09/17/17 09:00 10/17/17 08:59 09/17/17 07:48 81 MG Atorvastatin Calcium (Lipitor Tab) 80 mg QAM PO 09/17/17 09:00 10/17/17 08:59 09/17/17 07:48 80 MG Venlafaxine HCl (effeXOR EXTENDED REL CAP) 187.5 mg QAM PO 09/17/17 09:00 10/17/17 08:59 09/17/17 07:47 187.5 MG Insulin Detemir (Levemir Flexpen/ FlexTouch) 24 units Q12 SC 09/17/17 09:00 10/17/17 08:59 09/17/17 07:59 24 UNITS Methylprednisolone Sodium Succinate 40 mg/Syringe 0.64 ml @ 1.5 mls/min Q12 IV 09/17/17 21:00 10/14/17 17:59 Albuterol (Ventolin Hfa Inhaler) 1 puffs Q4 PRN INH 09/17/17 11:45 10/17/17 11:44 Ascorbic Acid (Vitamin C Tab) 500 mg TID PO 09/17/17 14:00 10/17/17 13:59 Carvedilol (Coreg Tab) 25 mg BID PO 09/17/17 21:00 10/17/17 20:59 I & O: 24-Hour Column 09/18/17 08:00 Intake Total 265 ml Balance 265 ml Vital Signs: Date Time Temp Pulse Resp B/P (MAP) Pulse Ox O2 Delivery O2 Flow Rate FiO2 09/17/17 14:32 88 14 99 Nasal Cannula 2.0 09/17/17 12:00 Nasal Cannula 2.0 09/17/17 11:30 37.0 93 20 122/82 (95) 95 09/17/17 11:16 87 14 96 Nasal Cannula 2.0 09/17/17 09:33 75 14 96 BiPAP/CPAP 09/17/17 08:00 Nasal Cannula 2.0 09/17/17 07:10 36.4 72 20 116/79 (91) 97 BiPAP 09/17/17 06:17 73 115/81 09/17/17 04:06 36.4 77 16 125/83 (97) 96 BiPAP 74 09/17/17 04:00 96 BiPAP 28 09/17/17 02:03 75 97 28 09/17/17 00:38 75 120/85 09/17/17 00:01 96 BiPAP 28 09/16/17 23:48 36.4 84 17 126/84 (98) 96 CPAP 28 09/16/17 22:59 81 97 28 09/16/17 22:58 81 24 97 BiPAP/CPAP 28 09/16/17 20:00 94 Nasal Cannula 2.0 09/16/17 19:35 36.8 88 18 137/84 (101) 94 Nasal Cannula 2.0 09/16/17 19:12 81 18 95 Nasal Cannula 2.0 09/16/17 18:50 90 129/84 09/16/17 16:00 Nasal Cannula 2.0 09/16/17 16:00 36.8 88 21 116/80 (92) 95 Nasal Cannula 2.0 Humidified Oxygen 09/16/17 15:07 84 18 99 Nasal Cannula 2.0 Laboratory Results: Last 24 Hours Test 09/16/17 15:33 09/16/17 16:36 09/16/17 20:15 09/17/17 02:15 Bedside Glucose 194 mg/dl 179 mg/dl 232 mg/dl 166 mg/dl Test 09/17/17 04:24 09/17/17 06:25 09/17/17 11:00 White Blood Count 13.26 K/uL Red Blood Count 3.25 M/uL Hemoglobin 9.1 g/dL Hematocrit 29.6 % Mean Corpuscular Volume 91.1 fL Mean Corpuscular Hemoglobin 28.0 pg Mean Corpuscular Hemoglobin Concent 30.7 g/dl Platelet Count 594 K/uL Mean Platelet Volume 8.7 fL Neutrophils (%) (Auto) 86.7 % Lymphocytes (%) (Auto) 6.2 % Monocytes (%) (Auto) 6.2 % Eosinophils (%) (Auto) 0.0 % Basophils (%) (Auto) 0.1 % Neutrophils # (Auto) 11.51 K/uL Lymphocytes # (Auto) 0.82 K/uL Monocytes # (Auto) 0.82 K/uL Eosinophils # (Auto) 0.00 K/uL Basophils # (Auto) 0.01 K/uL RDW Standard Deviation 46.4 fL RDW Coefficient of Variation 14.0 % Immature Granulocyte % (Auto) 0.8 % Immature Granulocyte # (Auto) 0.10 K/uL Nucleated RBC Absolute Count (auto) 0.08 K/uL Nucleated Red Blood Cells % 0.6 % Sodium Level 142 mmol/L Potassium Level 4.5 mmol/L Chloride Level 108 mmol/L Carbon Dioxide Level 28 mmol/L Anion Gap 6.0 mmol/L Blood Urea Nitrogen 52 mg/dl Creatinine 1.69 mg/dl Est Creatinine Clear Calc Drug Dose 46.0 ml/min Estimated GFR () 38.7 Estimated GFR (Non- 33.4 BUN/Creatinine Ratio 31.0 Random Glucose 142 mg/dl Calcium Level 8.5 mg/dl Phosphorus Level 3.4 mg/dl Magnesium Level 2.4 mg/dl Total Bilirubin 0.2 mg/dl Aspartate Amino Transf (AST/SGOT) 13 U/L Alanine Aminotransferase (ALT/SGPT) 34 U/L Alkaline Phosphatase 92 U/L Total Protein 6.5 gm/dl Albumin 2.4 gm/dl Globulin 4.1 gm/dl Albumin/Globulin Ratio 0.6 Bedside Glucose 147 mg/dl 177 mg/dl
--- NOTE | 2017-09-17 17:02 | Progress Note ---
Internal Med Progress Note Date of Service: Sep 17, 2017. Provider Documentation: SUBJECTIVE: offers no complain has Cough with minimum sputum production on 2 l 02 via nasal canula -her baseline ( on home 02 2 L ) no fever or chills, no GRIMES feels comfortable , conversing family visiting OBJECTIVE: Vital Signs-as noted below Exam: General-well appearing female, conversing ,pleasant, no sign of distress Eyes-sclera non icteric , PERRLA/EOMI Lungs-diminished , no wheeze or rales noted Heart-regular Abdomen-soft, non tender Extremities-no lower ext edema , no cyanosis , no rash or deformity Neuro-AAo x3, no focal deficit Lab data as noted below. ASSESSMENT & PLAN: ACUTE HYPOXEMIC RESPIRATORY FAILURE : resolved, respiratory status at baseline requiring mechanical ventilation multifactorial -Acute CHF with systolic dysfunction /pneumonia Cxray : pulmonary edema and small bilat pleural effusions persists , Progressive left suprahilar airspace opacity which could represent a developing pneumonia or a component of pulmonary edema ECHO shows EF 35 -40 % Cardiology /Pulmonary critical care consulted , appreciate input pt was diuresed with IV Lasix was on Broad spectrum empiric Abx with Vanco/Zosyn /Zithromax Zithromax D/oz as received 5 days tx extubated on 09/15/17 remained stable respiratory fregoso no complain of SOB , no worsening of hypoxia on 2 L 02 ( baseline ) Vancomycin D/oz earlier will D/c Zosyn changed to PO Levaquin total 7-10 days tx repeat Cxray in AM wean down IV Steroids plan to start on PO Prednisone in AM MARIKA : resolved Due to contrast induced nephropathy- had CTA of chest /diuretics Cr peaked to > 3, improved to 1.5-1.7 _> 16 appreciate input from Nephrology follow PRP Elevated troponin no evidence of acute coronary symptom likely NSTEMI from demand ischemia ECHO ; no wall motion abnormality pt denies of any pain or discomfort no complain of SOB or chest heaviness DM type 2 appreciate pharmacy input for glycemic control on Insulin SSI HTN on Beta isael /Lasix B Cell Lymphoma recently diagnosed . has port placement did not had Chemo tx yet appreciate input form Heme onc pt will need to recover form acute illness/infection /pneumonia prior to consider chemo tx DVT PROPHYLAXIS : sub q heparin CODE STATUS Ful code DISPOSITION clinically improving possible discharge home in next 1-2 days needs complete recovery form pneumonia /infection prior to Chemo pt will need out pt follow up with Heme Onc in 1-2 week for evaluation of chemo Vital Signs: Date Time Temp Pulse Resp B/P (MAP) Pulse Ox O2 Delivery O2 Flow Rate FiO2 09/17/17 16:00 Nasal Cannula 2.0 09/17/17 15:39 36.6 91 22 133/88 (103) 94 Nasal Cannula 2.0 09/17/17 14:32 88 14 99 Nasal Cannula 2.0 09/17/17 12:00 Nasal Cannula 2.0 09/17/17 11:30 37.0 93 20 122/82 (95) 95 09/17/17 11:16 87 14 96 Nasal Cannula 2.0 09/17/17 09:33 75 14 96 BiPAP/CPAP 28 09/17/17 08:00 Nasal Cannula 2.0 09/17/17 07:10 36.4 72 20 116/79 (91) 97 BiPAP 09/17/17 06:17 73 115/81 09/17/17 04:06 36.4 77 16 125/83 (97) 96 BiPAP 74 09/17/17 04:00 96 BiPAP 28 09/17/17 02:03 75 97 28 09/17/17 00:38 75 120/85 09/17/17 00:01 96 BiPAP 28 09/16/17 23:48 36.4 84 17 126/84 (98) 96 CPAP 28 09/16/17 22:59 81 97 28 09/16/17 22:58 81 24 97 BiPAP/CPAP 28 09/16/17 20:00 94 Nasal Cannula 2.0 09/16/17 19:35 36.8 88 18 137/84 (101) 94 Nasal Cannula 2.0 09/16/17 19:12 81 18 95 Nasal Cannula 2.0 09/16/17 18:50 90 129/84 Lab Results: Results Past 24 Hours Test 09/16/17 20:15 09/17/17 02:15 09/17/17 04:24 09/17/17 06:25 Range/Units Bedside Glucose 232 166 147 70-90 mg/dl White Blood Count 13.26 4.8-10.8 K/uL Red Blood Count 3.25 4.2-5.4 M/uL Hemoglobin 9.1 12.0-16.0 g/dL Hematocrit 29.6 37-47 % Mean Corpuscular Volume 91.1 80-100 fL Mean Corpuscular Hemoglobin 28.0 25-34 pg Mean Corpuscular Hemoglobin Concent 30.7 32-36 g/dl Platelet Count 594 130-400 K/uL Mean Platelet Volume 8.7 7.4-10.4 fL Neutrophils (%) (Auto) 86.7 % Lymphocytes (%) (Auto) 6.2 % Monocytes (%) (Auto) 6.2 % Eosinophils (%) (Auto) 0.0 % Basophils (%) (Auto) 0.1 % Neutrophils # (Auto) 11.51 1.4-6.5 K/uL Lymphocytes # (Auto) 0.82 1.2-3.4 K/uL Monocytes # (Auto) 0.82 0.11-0.59 K/uL Eosinophils # (Auto) 0.00 0-0.5 K/uL Basophils # (Auto) 0.01 0-0.2 K/uL RDW Standard Deviation 46.4 36.4-46.3 fL RDW Coefficient of Variation 14.0 11.5-14.5 % Immature Granulocyte % (Auto) 0.8 % Immature Granulocyte # (Auto) 0.10 0.00-0.02 K/uL Nucleated RBC Absolute Count (auto) 0.08 0-0 K/uL Nucleated Red Blood Cells % 0.6 % Sodium Level 142 136-145 mmol/L Potassium Level 4.5 3.5-5.1 mmol/L Chloride Level 108 98-107 mmol/L Carbon Dioxide Level 28 21-32 mmol/L Anion Gap 6.0 3-11 mmol/L Blood Urea Nitrogen 52 7-18 mg/dl Creatinine 1.69 0.60-1.20 mg/dl Est Creatinine Clear Calc Drug Dose 46.0 ml/min Estimated GFR () 38.7 Estimated GFR (Non- 33.4 BUN/Creatinine Ratio 31.0 10-20 Random Glucose 142 70-99 mg/dl Calcium Level 8.5 8.5-10.1 mg/dl Phosphorus Level 3.4 2.5-4.9 mg/dl Magnesium Level 2.4 1.8-2.4 mg/dl Total Bilirubin 0.2 0.2-1 mg/dl Aspartate Amino Transf (AST/SGOT) 13 15-37 U/L Alanine Aminotransferase (ALT/SGPT) 34 12-78 U/L Alkaline Phosphatase 92 45-117 U/L Total Protein 6.5 6.4-8.2 gm/dl Albumin 2.4 3.4-5.0 gm/dl Globulin 4.1 2.5-4.0 gm/dl Albumin/Globulin Ratio 0.6 0.9-2 Test 09/17/17 11:00 Range/Units Bedside Glucose 177 70-90 mg/dl
[2017-09-17] MEDS ORDERED: LEVOFLOXACIN CONSULT ACTIVE PRN (17:15)
[2017-09-17] MEDS: CARVEDILOL 25 MG TAB PO SCH (20:26)
[2017-09-17] MEDS: TRAZODONE HCL 50 MG TAB PO SCH (20:26)
[2017-09-17] MEDS ORDERED: METHYLPREDNISOLONE IV 40 MG in SYRINGE 0 ML IV SCH (21:00)
[2017-09-17] MEDS: HYDROmorphone INJ 0.5 MG/0.5 ML SYR IV PRN (21:05)
[2017-09-18] VITALS (17 sets, daily range): BP systolic 110–124; BP diastolic 74–78; PULSE 67–84; TEMP 36.4–36.9; O2SAT 96–99
[2017-09-18] MEDS: HYDROCODONE/ACETAMOPHEN 5/325MG TAB PO PRN ×2 (02:08→10:33)
[2017-09-18] MEDS: LEVALBUTEROL 0.63MG/3 ML NEB INH SCH ×5 (03:05→18:54)
[2017-09-18] MEDS: IPRATROPIUM BROMIDE NEB SOLN 0.02% 2.5 ML VIAL INH SCH ×5 (03:05→18:54)
[2017-09-18] MEDS: HEPARIN SOD 5000 UNIT/0.5 ML CARP SQ SCH ×2 (06:10→14:05)
[2017-09-18] MEDS: ASPIRIN 81 MG ECTAB PO SCH (08:13)
[2017-09-18] MEDS: VENLAFAXINE PO SCH ×2 (08:14)
[2017-09-18] MEDS: ATORVASTATIN 40 MG TAB PO SCH (08:14)
[2017-09-18] MEDS: REL PO SCH ×2 (08:14)
[2017-09-18] MEDS: CARVEDILOL 25 MG TAB PO SCH (08:15)
[2017-09-18] MEDS: GABAPENTIN 300 MG CAP PO SCH ×2 (08:15→14:05)
[2017-09-18] MEDS: ASCORBIC ACID 500 MG TAB PO SCH ×2 (08:16→14:05)
[2017-09-18] MEDS: INSULIN ASPART 100 UNITS/ML 3 ML PEN SC SCH ×3 (08:18→17:44)
[2017-09-18] MEDS: INSULIN DETEMIR FLEXPEN/FLEX TOUCH 100 UNITS/ML 3ML SC SCH (08:19)
--- NOTE | 2017-09-18 08:55 | Pulmonology Progress Note ---
Pulmonary Progress Note Date of Service Sep 18, 2017. Attending Dr. Nicholson Subjective Patient is feeling much better this morning. She states that her breathing is easier. She is currently on 2 L via nasal cannula. She was on BiPAP over night and has been tolerating it well. She denies sore throat, chest pain/tightness, sweats/chills, increasing SOB, or peripheral edema. C. Diff toxin negative. MRSA screen positive. Labs reviewed: WBC 13.26 Hgb 9.1 Objective VS reviewed: Afebrile HR 70 RR 16 BP 110/74 SaO2 98-99% General: awake, alert, cooperative, and in no acute distress. Obese Head: Normocephalic, Atraumatic. ENT: PERRLA, No discharge, EOMI, Sclera normal Neck: Normal ROM. Trachea midline. No stridor Respiratory: Very slight high pitched wheeze throughout this morning. Cardiovascular: Regular rate and rhythm. Abdomen: Normal bowel sounds hear throughout. Extremities: trace pitting edema bilateral dependent regions Neuro: Alert. CN II-XII grossly intact. Sensation and motor function grossly intact. Psych: Mood and affect are normal. Assessment & Plan 57-year-old female with hypoxemia and recently intubated for altered mental status with airway protection: Current Issues: Dyspnea at rest, large B-cell lymphoma, ischemic cardiomyopathy with reduced EF, acute on chronic renal failure, possible sleep apnea 1. Hypoxia: Patient's hypoxia likely multifactorial. Possible B-Cell lymphoma associated systemic vascular invasion, but unable to test this theory. Treatment for this association between B-cell lymphoma and vascular invasion would be chemotherapeutic agents is notably difficult this time as the patient has acute on chronic renal insufficiency and cardiomyopathy. Dr. Dobbs from Oncology is currently managing this situation. 2. Sleep Apnea: Patient does have an outside diagnosis of sleep apnea and her clinical history as well as physical presentation is consistent. Continue BiPAP at this time as the patient could have central sleep apneas as well as obstructive and is responding well to this current therapy. Also BiPAP is noted to afterload reduce the heart. Patient will need further evaluation for sleep apnea as outpatient. 3. Steroids: Patient continues IV steroids, but has no underlying diagnosis of COPD and/or asthma. Unless steroids are being used to help treated another disorder such as the large B-cell lymphoma, suggest tapering steroids as her pulmonary function appears to be improving. Patient is relatively stable from a pulmonary perspective. She will need continue O2 supplementation during the day to maintain SaO2 >92% and continued BiPAP at night. She will need follow up as an outpatient with a member of the sleep team such as Dr. Sim or Kaye Jauregui PA-C following discharge. Otherwise, pulmonary will sign off. Please call with changes in status/ questions. Patient and plan reviewed and agreed upon. Data Medications: Current Inpatient Medications Medications (Trade) Dose Ordered Sig/Chantale Route Start Time Stop Time Status Last Admin Dose Admin Glucose (Glucose 40% Gel) 15-30 GRAMS 15 GRAMS... UD PRN PO 09/10/17 01:45 10/10/17 01:44 Glucose (Glucose Chew Tab) 4-8 Tablets 4 Tabl... UD PRN PO 09/10/17 01:45 10/10/17 01:44 Dextrose (Dextrose 50% 50ML Syringe) 25-50ML OF 50% DW IV FOR... UD PRN IV 09/10/17 01:45 10/10/17 01:44 09/15/17 14:44 25 ML Glucagon (Glucagon Inj) 1 mg UD PRN SQ 09/10/17 01:45 10/10/17 01:44 Miscellaneous Information (Consult Glycemic Management Pharmacy) 1 ea UD PRN N/A 09/10/17 06:34 10/10/17 06:33 Ipratropium [place] (Atrovent 0.02% 0.5MG/2.5ML Neb) 0.5 mg Q4H PRN INH 09/10/17 06:30 10/10/17 06:29 09/14/17 12:54 0.5 MG Levalbuterol (Xopenex 0.63 Mg/ 3 Ml Neb) 0.63 mg Q4H PRN INH 09/10/17 06:30 10/10/17 06:29 09/14/17 12:54 0.63 MG Heparin Sodium (Porcine) (Heparin 100 Unit/ml 5ml Flush) 5 ml PRN PRN IV 09/11/17 01:15 10/11/17 01:14 09/13/17 06:20 5 ML Hydromorphone HCl (Dilaudid Inj) 0.5 mg Q4 PRN IV 09/11/17 14:00 09/25/17 13:59 09/17/17 21:05 0.5 MG Heparin Sodium (Porcine) (Heparin Sq 5000 Unit/0.5ml) 5,000 unit Q8@0600,1400,2200 SQ 09/15/17 14:00 10/15/17 13:59 09/18/17 06:10 5,000 UNIT Ipratropium [place] (Atrovent 0.02% 0.5MG/2.5ML Neb) 0.5 mg Q4R INH 09/16/17 04:00 10/16/17 03:59 09/18/17 06:55 0.5 MG Levalbuterol (Xopenex 0.63 Mg/ 3 Ml Neb) 0.63 mg Q4R INH 09/16/17 01:00 10/16/17 00:59 09/18/17 06:55 0.63 MG Gabapentin (Neurontin Cap) 300 mg TID PO 09/16/17 14:00 10/16/17 13:59 09/18/17 08:15 300 MG Buspirone HCl (Buspar Tab) 20 mg BID PO 09/16/17 21:00 10/16/17 20:59 09/18/17 08:14 20 MG Trazodone HCl (Desyrel Tab) 50 mg HS PO 09/16/17 21:00 10/16/17 20:59 09/17/17 20:26 50 MG Insulin Aspart (novoLOG ASPART) ACHS SC 09/16/17 16:00 10/16/17 15:59 09/18/17 08:18 14 UNITS Aspirin (Ecotrin Tab) 81 mg QAM PO 09/17/17 09:00 10/17/17 08:59 09/18/17 08:13 81 MG Atorvastatin Calcium (Lipitor Tab) 80 mg QAM PO 09/17/17 09:00 10/17/17 08:59 09/18/17 08:14 80 MG Venlafaxine HCl (effeXOR EXTENDED REL CAP) 187.5 mg QAM PO 09/17/17 09:00 10/17/17 08:59 09/18/17 08:14 187.5 MG Insulin Detemir (Levemir Flexpen/ FlexTouch) 24 units Q12 SC 09/17/17 09:00 10/17/17 08:59 09/18/17 08:19 24 UNITS Albuterol (Ventolin Hfa Inhaler) 1 puffs Q4 PRN INH 09/17/17 11:45 10/17/17 11:44 Ascorbic Acid (Vitamin C Tab) 500 mg TID PO 09/17/17 14:00 10/17/17 13:59 09/18/17 08:16 500 MG Carvedilol (Coreg Tab) 25 mg BID PO 09/17/17 21:00 10/17/17 20:59 09/18/17 08:15 25 MG Levofloxacin (Levaquin Tab) 750 mg Q2D@1100 PO 09/18/17 11:00 09/25/17 10:59 Prednisone (PredniSONE TAB) 40 mg DAILY PO 09/18/17 09:00 10/18/17 08:59 09/18/17 08:16 40 MG Levofloxacin (Consult) 1 ea UD PRN N/A 09/17/17 17:15 10/17/17 17:14 Acetaminophen/ Hydrocodone Bitart ([place] 5/325 Tab) pain not relieved by tylenol Q4H PRN PO 09/18/17 00:15 10/02/17 00:14 09/18/17 02:08 2 TAB Vital Signs: Date Time Temp Pulse Resp B/P (MAP) Pulse Ox O2 Delivery O2 Flow Rate FiO2 09/18/17 08:00 98 BiPAP 2.0 28 09/18/17 08:00 70 09/18/17 07:30 36.5 70 16 110/74 (86) 98 BiPAP 28 09/18/17 06:56 68 98 28 09/18/17 06:56 67 18 98 BiPAP/CPAP 28 09/18/17 05:06 67 98 28 09/18/17 04:00 36.4 69 17 112/75 (87) 99 CPAP 28 09/18/17 04:00 99 BiPAP 2.0 09/18/17 03:06 68 12 98 BiPAP/CPAP 28 09/18/17 03:05 68 98 28 09/18/17 00:01 96 BiPAP 2.0 09/17/17 23:51 36.7 78 17 130/84 (99) 96 CPAP 28 09/17/17 23:14 91 18 98 BiPAP/CPAP 28 09/17/17 23:14 91 98 28 09/17/17 20:00 98 Nasal Cannula 2.0 09/17/17 19:54 99 14 98 Nasal Cannula 2.0 09/17/17 19:48 36.7 96 18 133/87 (102) 98 Nasal Cannula 2.0 09/17/17 16:00 Nasal Cannula 2.0 09/17/17 15:39 36.6 91 22 133/88 (103) 94 Nasal Cannula 2.0 09/17/17 14:32 88 14 99 Nasal Cannula 2.0 09/17/17 12:00 Nasal Cannula 2.0 09/17/17 11:30 37.0 93 20 122/82 (95) 95 09/17/17 11:16 87 14 96 Nasal Cannula 2.0 09/17/17 09:33 75 14 96 BiPAP/CPAP 28 Laboratory Results: Last 24 Hours Test 09/17/17 11:00 09/17/17 15:58 09/17/17 19:59 09/18/17 06:35 Bedside Glucose 177 mg/dl 183 mg/dl 174 mg/dl 172 mg/dl
[2017-09-18] MEDS ORDERED: LEVOFLOXACIN 750 MG TAB PO SCH (11:00)
--- NOTE | 2017-09-18 12:16 | Pharmacy Progress Note ---
Pharmacy Glycemic Short Note 2 Date of Service Sep 18, 2017. OUTPATIENT ANTIDIABETIC REGIMEN: * Levemir 10 units SQ HS * Glipizide 20 mg PO BIDM * Metformin 1,000mg PO BIDM ASSESSMENT: * Ms. Andres received 84 units of insulin (48 units of this being basal) yesterday with BSGs ranging from 172-183 mg/dL * Steroids decreased further today to prednisone 40 mg daily * Est TDD ~60 units on this new steroid dose PLAN FOR INPATIENT GLYCEMIC CONTROL: * Decrease Levemir to 24 units qAM only * Will continue Novolog CF 15, CR 5 for now but will plan to loosen to 20 and 7 if BSGs start to fall
[2017-09-18] MEDS ORDERED: VANCOMYCIN TROUGH ONE (13:00)
--- NOTE | 2017-09-18 17:33 | Discharge Instructions ---
Discharge Instructions Date of Service Sep 18, 2017. Admission Reason for Admission: Dyspnea Discharge Discharge Diagnosis / Problem: PNEUMONIA /RESPIRATORY FAILURE /LYMPHOMA Discharge Goals Goal(s): Decrease discomfort, Increase independence, Improve disease control, Therapeutic intervention Activity Recommendations Activity Limitations: as noted below ( TOLERATED ) . Instructions / Follow-Up Instructions / Follow-Up HOSPITAL FOLLOWUP :09/22/2017 2:20 PM Orion Murray V, DO [facility], [place] DO NOT TAKE ADVIL. MOTRIN , ALEVE , NAPROXEN -AVOID NSAID'S WILL CAUSE WORSENING OF RENAL FAILURE Current Hospital Diet Patient's current hospital diet: Diabetes Type 2 Diet Discharge Diet Recommended Diet: Diabetes Type 2 Diet Pending Studies Studies pending at discharge: no Laboratory Results Hemoglobin A1c Test 09/11/17 04:11 Range/Units Estimated Average Glucose 292 mg/dl Hemoglobin A1c 11.8 H 4.5-5.6 % Medical Emergencies . Who to Call and When: Medical Emergencies: If at any time you feel your situation is an emergency, please call 911 immediately. . Non-Emergent Contact Non-Emergency issues call your: Primary Care Provider . . "Provider Documentation" section prepared by Mary Kate Martinez. . VTE Core Measure Inpt VTE Proph given/why not?: Enoxaparin (Lovenox)SQ
[2017-09-18] MEDS ORDERED: LEVO-459 PO (17:45)
--- NOTE | 2017-09-18 18:56 | Discharge Summary ---
Discharge Summary Date of Service Sep 18, 2017. Discharge Summary Admission Date: Sep 10, 2017 at 00:08 Discharge Date: Sep 19, 2017 Discharge Disposition: Home Principal Diagnosis: PNEUMONIA /RESPIRATORY FAILURE /LYMPHOMA Procedures: CTA OF CHEST : IMPRESSION: 1. No evidence for pulmonary embolus. 2. Diffuse interlobular septal thickening with perihilar groundglass airspace opacities, cardiomegaly, and small bilateral pleural effusions. This likely represents pulmonary edema. 3. Progressive lymphadenopathy within the chest consistent with the patient's history of lymphoma. ECHO : Mildly dilated LV chamber size with mild concentric LVH. Moderately reduced LV systolic function with moderate global hypokinesis, EF 35- 40%. Grade II diastolic dysfunction. The right ventricular cavity size is normal (basal dimension <4.2 cm in right ventricular apical 4-chamber view). The right ventricular systolic function is normal as assessed by tricuspid annular plane systolic excursion (TAPSE) ( normal >1.5 cm). Aortic valve sclerosis mild, without significant aortic valvular stenosis. Mild mitral regurgitation. Mild left atrial enlargement. Consultations: PULMONARY CRITICAL CARE CARDIOLOGY HEME ONC Medication Reconciliation New Medications: Levofloxacin (Levaquin) 500 Mg Tab 1 TAB PO DAILY for 2 Days, #2 TABS Continued Medications: Albuterol Hfa (Ventolin Hfa) 200 Puffs/12717 Mcg Aers 1-2 PUFFS INH Q4 PRN for SOB/Wheezing Amlodipine (Norvasc) 2.5 Mg Tab 2.5 MG PO DAILY, TAB Ascorbic Acid (Vitamin C) 500 Mg Tab 500 MG PO TID Aspirin (Aspirin 81) 81 Mg Tab 81 MG PO DAILY Atorvastatin Calcium (Lipitor) 80 Mg Tab 80 MG PO DAILY Buspirone Hcl (Buspirone Hcl) 10 Mg Tab 2 TAB PO BID, TAB 1 Refill Carvedilol (Coreg) 25 Mg Tab 1 TAB PO BID, TAB 1 Refill Clopidogrel Bisulfate (Clopidogrel) 75 Mg Tab 75 MG PO QAM, #90 TAB 3 Refills Fenofibrate Micronized (Tricor) 67 Mg Cap 67 MG PO DAILY Gabapentin (Neurontin) 300 Mg Cap 300 MG PO TID Glipizide (Glucotrol) 10 Mg Tab 2 TAB PO BID TAKE BEFORE MEAL Hydrocodone/Acetaminophen 5MG/325MG ([place] 5MG/325MG) Tab 2 TABLET PO Q6 PRN for Pain Hydroxyzine Pamoate (Vistaril) 25 Mg Cap 1 CAP PO Q6H PRN for Anxiety/Agitation, CAP 1 Refill Insulin Detemir (Levemir Flextouch) 100 Unit/Ml Inj 10 HS Lorazepam (Lorazepam) 0.5 Mg Tab 0.5 MG PO Q6H PRN for Anxiety/Agitation, TAB Metformin Hcl (Glucophage) 500 Mg Tab 1000 MG PO BID, TAB Nitroglycerin (Nitrostat) 0.4 Mg Tab 0.4 MG UT UD PRN for Chest Pain PLACE ONE TAB UNDER THE TOUNGUE EVERY 5 MINUTES NEEDED FOR CHEST PAIN. TAKE NO MORE THAN 3 TABS. IF CHEST PAIN IS NOT RELIEVED BY 3 TABS CALL 911. Trazodone Hcl (Desyrel) 50 Mg Tab 50 MG PO HS, TAB Venlafaxine Hcl (Effexor Xr) 150 Mg Cap 1 CAP PO DAILY, CAP 1 Refill 150mg + 37.5 mg to equal 187.5 daily Venlafaxine Hcl (Effexor Xr) 37.5 Mg Cap 1 CAP PO DAILY, CAP 3 Refills take with the 150mg to equal 187.5 mg Discontinued Medications: Furosemide (Lasix) 40 Mg Tab 40 MG PO DAILY, 0 Refills Ketorolac (Toradol) 10 Mg Tab 10 MG PO UD PRN for Pain, TAB Lisinopril (Prinivil) 5 Mg Tab 5 MG PO DAILY, TAB Referrals At Discharge Follow up Referrals: Physician Referral - 09/22/17 with Orion Murray D.O. Admission Information HPI (per Admitting provider): 57 year old female with PMH of B Cell lymphoma, DM type 2, Dyslipidemia, Anxiety , CAD, Systolic heart failure presents to the Emergency Room with complaints of worsening SOB. 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 She had a port placed last week to start chemo in the next coming week. Pt said that for the last 2 weeks she has been coughing. She said that she saw her PCP for that and she was told it is due to the cancer that is pushing on one of her nerve. Pt said that today her breathing got worst. she said that she called her PCP that advised her to come to the ER for eval. She said that she developed SOB with minimal exertion. she said that she cannot lie down to sleep. she has been falling asleep on the recliner. Pt said that every time she coughs, she feels like she is suffocating. she said that her physician recently gave her a course of Levaquin. Pt said that she felt like when she had a CHF few months ago. She said that she has been drinking a lot of water because she felt that her mouth is dry. she said that last time she checked her weight she had lost 12 lbs, but now she gained back the 12 lbs. she also complaint of chest discomfort with exertion. Also complaint of achy joints, fever and chills. denies any recent sick contact or recent travelling. Physical Exam (per Admitting): General Appearance: WD/WN, no apparent distress Head: normocephalic Eyes: normal inspection, PERRL, EOMI ENT: hearing grossly normal Neck: supple, no JVD, trachea midline Respiratory/Chest: normal breath sounds, no respiratory distress, no accessory muscle use Cardiovascular: no JVD, + tachycardia Abdomen/GI: normal bowel sounds, non tender, soft Back: no CVA tenderness Extremities/Musculoskelatal: no calf tenderness Neurologic/Psych: alert, normal mood/affect, oriented x 3 Skin: warm/dry, no rash Hospital Course ACUTE HYPOXEMIC RESPIRATORY FAILURE : resolved, respiratory status at baseline ambulating ,no SOB or discomfort on 2 L 02 ( baseline on home 02 2 L ) cough has improved ,no GRIMES pt required Mechanical ventilation for acute resp failure multifactorial -Acute CHF with systolic dysfunction /pneumonia Cxray : pulmonary edema and small bilat pleural effusions persists , Progressive left suprahilar airspace opacity which could represent a developing pneumonia or a component of pulmonary edema ECHO shows EF 35 -40 % Cardiology /Pulmonary critical care consulted , appreciate input pt was diuresed with IV Lasix was on Broad spectrum empiric Abx with Vanco/Zosyn /Zithromax Zithromax D/oz as received 5 days tx extubated on 09/15/17 remained stable respiratory fregoso no complain of SOB , no worsening of hypoxia on 2 L 02 ( baseline ) Vancomycin D/oz earlier will D/c Zosyn changed to PO Levaquin total 7-10 days tx MARIKA : resolved Due to contrast induced nephropathy- had CTA of chest /diuretics Cr peaked to > 3, improved to 1.5-1.7 _> 1.6 appreciate input from Nephrology pt is asked to avoid NSAID's a all diuretics kept on hold repeat PRP in out pt to assess stabilization of renal function Elevated troponin no evidence of acute coronary symptom likely NSTEMI from demand ischemia ECHO ; no wall motion abnormality pt denies of any pain or discomfort no complain of SOB or chest heaviness DM type 2 appreciate pharmacy input for glycemic control on Insulin SSI HTN on Beta isael /Lasix B Cell Lymphoma recently diagnosed . has port placement did not had Chemo tx yet appreciate input form Heme onc pt will need to recover form acute illness/infection /pneumonia prior to consider chemo tx heme onc follow up in 2 weeks DVT PROPHYLAXIS : sub q heparin CODE STATUS Ful code DISPOSITION stable to be discharged home today PHYSICAL EXAM ON DAY OF DISCHARGE Exam: General-well appearing female, conversing ,pleasant, no sign of distress ambulated in hallway earlier , no complain of SOB , no GRIMES or hypoxia Eyes-sclera non icteric , PERRLA/EOMI Lungs-diminished , no wheeze or rales noted Heart-regular Abdomen-soft, non tender Extremities-no lower ext edema , no cyanosis , no rash or deformity Neuro-AAo x3, no focal deficit Total time spent on discharge = 40 MINS This includes examination of the patient, discharge planning, medication reconciliation, and communication with other providers. Discharge Instructions Discharge Instructions Date of Service Sep 18, 2017. Admission Reason for Admission: Dyspnea Discharge Discharge Diagnosis / Problem: PNEUMONIA /RESPIRATORY FAILURE /LYMPHOMA Discharge Goals Goal(s): Decrease discomfort, Increase independence, Improve disease control, Therapeutic intervention Activity Recommendations Activity Limitations: as noted below ( TOLERATED ) . Instructions / Follow-Up Instructions / Follow-Up HOSPITAL FOLLOWUP :09/22/2017 2:20 PM Orion Marie DO [facility], [place] DO NOT TAKE ADVIL. MOTRIN , ALEVE , NAPROXEN -AVOID NSAID'S WILL CAUSE WORSENING OF RENAL FAILURE Current Hospital Diet Patient's current hospital diet: Diabetes Type 2 Diet Discharge Diet Recommended Diet: Diabetes Type 2 Diet Pending Studies Studies pending at discharge: no Laboratory Results Hemoglobin A1c Test 09/11/17 04:11 Range/Units Estimated Average Glucose 292 mg/dl Hemoglobin A1c 11.8 H 4.5-5.6 % Medical Emergencies . Who to Call and When: Medical Emergencies: If at any time you feel your situation is an emergency, please call 911 immediately. . Non-Emergent Contact Non-Emergency issues call your: Primary Care Provider . . "Provider Documentation" section prepared by Mary Kate Martinez. . VTE Core Measure Inpt VTE Proph given/why not?: Enoxaparin (Lovenox)SQ Additional Copies To Ranjan Dobbs M.D. Ackley, Charles V., D.O.
[2017-09-19] MEDS ORDERED: INSULIN DETEMIR FLEXPEN/FLEX TOUCH 100 UNITS/ML 3ML SC SCH (09:00)
== END 2017-09-18 19:04 | disposition home health service (06) | DRG 208 ==
LOC: C.EDB 20:53 → C.2T 09-10 00:08 → EDBEDREQ 09-10 00:21 → ENRESERV 09-10 00:46 → C.MSICU 09-14 16:49 → ENRESERV 09-16 17:09 → C.2T 09-16 17:42
PROVIDERS: ADMIT Internal Medicine; ATTEND Hospitalist
PROC: 5A1945Z Respiratory Ventilation, 24-96 Consecutive Hours (ICD-10-PCS; principal; 2017-09-14)
DX: J18.9 Pneumonia, unspecified organism (principal); I50.23 Acute on chronic systolic (congestive) heart failure; J96.00 Acute respiratory failure, unspecified whether with hypoxia or hypercapnia; I21.4 Non-ST elevation (NSTEMI) myocardial infarction; I13.0 Hypertensive heart and chronic kidney disease with heart failure and stage 1 through stage 4 chronic kidney disease, or unspecified chronic kidney disease; N17.9 Acute kidney failure, unspecified; C85.10 Unspecified B-cell lymphoma, unspecified site; Z68.41 Body mass index [BMI] 40.0-44.9, adult; T50.8X5A Adverse effect of diagnostic agents, initial encounter; I25.10 Atherosclerotic heart disease of native coronary artery without angina pectoris; N18.3 Chronic kidney disease, stage 3 (moderate); E11.22 Type 2 diabetes mellitus with diabetic chronic kidney disease; E78.5 Hyperlipidemia, unspecified; I25.2 Old myocardial infarction; I25.5 Ischemic cardiomyopathy; G47.33 Obstructive sleep apnea (adult) (pediatric); F41.9 Anxiety disorder, unspecified; E66.01 Morbid (severe) obesity due to excess calories; Z51.81 Encounter for therapeutic drug level monitoring; Z79.899 Other long term (current) drug therapy; Z79.4 Long term (current) use of insulin; Z79.82 Long term (current) use of aspirin; Z95.5 Presence of coronary angioplasty implant and graft; Z82.49 Family history of ischemic heart disease and other diseases of the circulatory system; Z80.0 Family history of malignant neoplasm of digestive organs

== ENCOUNTER 2017-11-01 21:31 | Inpatient (IN) | payer OTHER ==
[~2017-11-01] VITALS: Ht 165.1 cm; Wt 107.3 kg
[~2017-11-01 21:31] MED LIST changes: +ATV5X PO; +BUSP-8 PO; -BUSP5TAB59 PO; -CARV12.5 PO; +CARV25TA2 PO; -FERR1TAB13 PO; -FLUO40CA8 PO; -FRS/40 PO; +HYDR25CA PO; +INSU3INJ3 SC; +LEVO-459 PO; -LISI-729 PO; -MECL-91 PO; -ONDA4TAB46 PO; -OXYC-57 PO; -TRAM-10 PO; +TRAZ-119 PO; -TRAZ100T29 PO; +VENL150C PO; +VENL1CAP92 PO; -VENL225T27 PO
[2017-11-01] MEDS ORDERED: ONDANSETRON INJ 2 MG/ML 2 ML VIAL IV STA (21:49)
[2017-11-01] MEDS ORDERED: HYDROmorphone INJ 1 MG/ML SYR IV STA ×2 (21:49→23:21)
[2017-11-01] MEDS ORDERED: OXGN (21:59)
[2017-11-01] MEDS ORDERED: GLIP10TA3 PO (22:04)
[2017-11-01] MEDS ORDERED: NVLGIPEN SC (22:11)
[2017-11-01 22:40] LABS: HEMATOCRIT 25.4 % (37-47); HEMOGLOBIN 8.1 g/dL (12.0-16.0); MEAN CELL VOLUME 88.5 fL (80-100); MEAN CORPUSCULAR HEMOGLOBIN 28.2 pg (25-34); MEAN CORPUSCULAR HGB CONC 31.9 g/dl (32-36); MEAN PLATELET VOLUME 9.4 fL (7.4-10.4); NUCLEATED RED BLOOD CELL ABS 0.37 K/uL (0-0); PLATELET COUNT 166 K/uL (130-400); RED CELL DISTRIBUTION WIDTH CV 17.1 % (11.5-14.5); RED CELL DISTRIBUTION WIDTH SD 54.8 fL (36.4-46.3); WHITE BLOOD COUNT 13.69 K/uL (4.8-10.8)
[2017-11-01 22:55] LABS: ALBUMIN 2.6 gm/dl (3.4-5.0); ALT/SGPT 22 U/L (12-78); BLOOD UREA NITROGEN 15 mg/dl (7-18); CARBON DIOXIDE 27 mmol/L (21-32); CREATININE 1.07 mg/dl (0.60-1.20); GLUCOSE 196 mg/dl (70-99); POTASSIUM 3.7 mmol/L (3.5-5.1); SODIUM 135 mmol/L (136-145)
--- NOTE | 2017-11-01 22:55 | DIAGNOSTIC IMAGING REPORT ---
CHEST 2 VIEWS ROUTINE CLINICAL HISTORY: 57 years-old Female presenting with pain, B cell lymphoma. TECHNIQUE: PA and lateral views of the chest were obtained. COMPARISON: 09/16/2017. FINDINGS: Left subclavian Mediport is accessed and terminates in the lower SVC. Cardiac silhouette remains moderately enlarged. Prominence of pulmonary vasculature. Interval decrease in left lung and right basilar opacities. No pleural effusion or pneumothorax. Posterior thoracolumbar fusion hardware. Upper abdomen normal. IMPRESSION: 1. Cardiomegaly with decreased pulmonary edema and resolved pleural effusions. No new infiltrate. Electronically signed by: Fabrice Foss M.D. 11/01/2017 10:54 PM Dictated Date/Time: 11/01/2017 10:52 PM
[2017-11-01 23:02] LABS: ALKALINE PHOSPHATASE 85 U/L (45-117); AST/SGOT 25 U/L (15-37); TOTAL PROTEIN 5.8 gm/dl (6.4-8.2)
[2017-11-01] MEDS ORDERED: MAGNESIUM SULFATE 1GM / D5W 1 GM BAG IV STA (23:11)
[2017-11-02] VITALS (13 sets, daily range): BP systolic 84–117; BP diastolic 50–75; PULSE 91–113; TEMP 36.9–38; O2SAT 92–99; Ht 165.1 cm; Wt 107.3 kg
[2017-11-02] MEDS ORDERED: HYDROCODONE/ACETAMOPHEN 5/325MG TAB PO PRN (00:15)
[2017-11-02] MEDS ORDERED: LORAZEPAM 0.5 MG TAB PO PRN (00:15)
[2017-11-02] MEDS ORDERED: PROMETHAZINE HCL INJ 12.5 MG in SODIUM CHLORIDE 0.9% 50ML 50 ML IV PRN (00:15)
[2017-11-02] MEDS ORDERED: GLUCOSE 10 TABS/TUBE PO PRN (01:00)
[2017-11-02] MEDS ORDERED: GLUCOSE 40% GEL 15 GM TUBE PO PRN (01:00)
[2017-11-02] MEDS ORDERED: GLUCAGON FOR INJ 1 MG VIAL SQ PRN (01:00)
[2017-11-02] MEDS ORDERED: DEXTROSE 50% 50 ML SYR IV PRN (01:00)
[2017-11-02] MEDS ORDERED: PIPERACILL/TAZOBAC CONSULT ACTIVE PRN (01:35)
[2017-11-02] MEDS ORDERED: VANCOMYCIN CONSULT ACTIVE PRN (01:36)
[2017-11-02] MEDS ORDERED: PIPERACILL/TAZOBAC IV 4.5 GM in DEXTROSE 5% 100ML IV ONE (01:45)
--- NOTE | 2017-11-02 01:49 | History and Physical ---
History & Physical Date & Time of Service: Nov 02, 2017 at 01:29 Chief Complaint: Intractable Pain Primary Care Physician: Orion Murray D.O. History of Present Illness Source: patient, clinic records, hospital records 57 year old female with history of B cell Lymphoma on chemotherapy, CAD s/p Stent, CHF Systolic EF 45%, DM 2, HTN, and other problems noted below presenting with severe generalized pain. Follows with Dr. Murray for PCP and Dr.N. Dobbs for Oncology. Patient states she finished her 3rd round of chemotherapy (R-CEOP) with neulasta around 2 weeks ago. For the past 3-4 days, she has been having progressive generalized body aches, nausea and poor appetite. Patient states she usually gets these symptoms after chemo but presently, symptoms appear to be somewhat more severe. Denies fever/chills, headache, sore throat, chest pain, dyspnea, cough, abdominal pain, changes with BM or urination. At the ER, patient was received afebrile, HR 106, BP 112/64. CXR: no signs of pneumonia. Trop 0.07, EKG no signs of acute infarct/ischemia. She was given Dilaudid and Zofran. On exam, patient appears somewhat drowsy but comfortable. States pain is somewhat improved compared to admission. Denies any other active symptoms. Past Medical/Surgical History Medical Problems: (1) CAD (coronary artery disease) Permanent Comment: s/p cath 04/11/2015 - drug eluting stent to the proximal ramus intermedius Status: Chronic (2) Chronic systolic heart failure Status: Chronic (3) CKD (chronic kidney disease), stage III Status: Chronic (4) DM type 2 (diabetes mellitus, type 2) Status: Chronic (5) Dyslipidemia Status: Chronic (6) Heart disease Status: Chronic (7) History of migraine Status: Chronic (8) Hypertension Status: Chronic (9) Ischemic cardiomyopathy Status: Chronic (10) Myocardial infarction Status: Resolved (11) OCD (obsessive compulsive disorder) Status: Chronic (12) DANGELO (obstructive sleep apnea) Status: Chronic Surgical Problems: (1) S/P cardiac cath Permanent Comment: - drug eluting stent to the proximal ramus intermedius Status: Chronic Family History Heart disease Social History Smoking Status: Former Smoker Drug Use: none Marital Status: Occupational Status: employed Multi-Drug Resistant Organisms History of MDRO: Yes Type of MDRO: MRSA Allergies Coded Allergies: Adhesives (Verified Allergy, Unknown, RASH, 11/01/17) Home Medications Scheduled Amlodipine (Norvasc), 2.5 MG PO DAILY Ascorbic Acid (Vitamin C), 500 MG PO TID Aspirin (Aspirin 81), 81 MG PO DAILY Atorvastatin Calcium (Lipitor), 80 MG PO DAILY Buspirone Hcl (Buspirone Hcl), 20 MG PO BID Carvedilol (Coreg), 25 MG PO BID Clopidogrel Bisulfate (Clopidogrel), 75 MG PO QAM Fenofibrate Micronized (Tricor), 67 MG PO DAILY Gabapentin (Neurontin), 300 MG PO TID Glipizide (Glucotrol), 20 TAB PO HS Glipizide (Glucotrol), 10 MG PO QAM Home O2 Therapy (Oxygen), 2 LITERS NA PRN Insulin Aspart (Novolog Flexpen), 1 DOSE SC TIDM Insulin Detemir (Levemir Flextouch), 10 UNITS SC HS Metformin Hcl (Glucophage), 1,000 MG PO BID Trazodone Hcl (Desyrel), 50 MG PO HS Venlafaxine Hcl (Effexor Xr), 1 CAP PO DAILY Venlafaxine Hcl (Effexor Xr), 1 CAP PO DAILY Scheduled PRN Albuterol Hfa (Ventolin Hfa), 1-2 PUFFS INH Q4 PRN for SOB/Wheezing Hydrocodone/Acetaminophen 5MG/325MG ([place] 5MG/325MG), 2 TABLET PO Q6 PRN for Pain Hydroxyzine Pamoate (Vistaril), 25 MG PO Q6H PRN for Anxiety/Agitation Lorazepam (Lorazepam), 0.5 MG PO Q6H PRN for Anxiety/Agitation Nitroglycerin (Nitrostat), 0.4 MG UT UD PRN for Chest Pain Review of Systems Constitutional- no fever; no weight loss Eyes- no acute visual changes ENT- no sinus drainage; no pharyngitis Pulmonary- no cough, no wheezing, no shortness of breath Cardiac- no chest pain, no palpitations, no orthopnea, no dependent edema GI- (+) as above - no dysuria, no hematuria Musculoskeletal- (+) generalized body aches Derm- no rashes, no new skin lesions, no changing skin lesions Hematologic- no unusual bruising, no unusual bleeding Lymphatics- no adenopathy Endocrine- no polyuria or polydipsia; no heat or cold intolerance Neuro- no headaches, no focal neurologic symptoms Psych- no anxiety, no depression Physical Exam Vital Signs Date Time Temp Pulse Resp B/P (MAP) Pulse Ox O2 Delivery O2 Flow Rate FiO2 11/02/17 00:35 37.7 112 18 117/75 99 Nasal Cannula 2.0 11/02/17 00:24 79 18 118/79 99 11/01/17 23:06 104 20 104/56 93 Room Air 11/01/17 22:32 105 11/01/17 22:19 94 Room Air 11/01/17 22:19 94 Room Air 11/01/17 21:38 37.1 106 20 112/64 94 Room Air General Appearance: WD/WN, no apparent distress Head: normocephalic, atraumatic, + pertinent finding ((+) alopecia) Eyes: normal inspection, PERRL, EOMI, sclerae normal ENT: hearing grossly normal, pharynx normal, + pertinent finding (dry oral mucosa, no thrush) Neck: supple, no adenopathy, thyroid normal, no JVD, trachea midline Respiratory/Chest: chest non-tender, lungs clear, normal breath sounds, no respiratory distress, no accessory muscle use, + pertinent finding (port on the left chest wall- no signs of infection) Cardiovascular: no JVD, no murmur, + tachycardia (mild), + pertinent finding ( trace bilateral lower leg edema) Abdomen/GI: normal bowel sounds, non tender, soft Back: normal inspection, no CVA tenderness Extremities/Musculoskelatal: + pertinent finding (trace bilateral lower leg edema, no warmth/ertyhema/tenderness) 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, no motor/sensory deficits, normal mood/affect, oriented x 3, + pertinent finding (mild drowsiness) Skin: normal color, warm/dry, no rash Lymphatic: no adenopathy Diagnostics Laboratory Results Results Past 24 Hours Test 11/01/17 22:15 Range/Units White Blood Count 13.69 4.8-10.8 K/uL Red Blood Count 2.87 4.2-5.4 M/uL Hemoglobin 8.1 12.0-16.0 g/dL Hematocrit 25.4 37-47 % Mean Corpuscular Volume 88.5 80-100 fL Mean Corpuscular Hemoglobin 28.2 25-34 pg Mean Corpuscular Hemoglobin Concent 31.9 32-36 g/dl Platelet Count 166 130-400 K/uL Mean Platelet Volume 9.4 7.4-10.4 fL RDW Standard Deviation 54.8 36.4-46.3 fL RDW Coefficient of Variation 17.1 11.5-14.5 % Nucleated RBC Absolute Count (auto) 0.37 0-0 K/uL Neutrophils % (Manual) 83.5 % Lymphocytes % (Manual) 3.5 % Monocytes % (Manual) 4.3 % Metamyelocytes % 5.2 % Myelocytes % 3.5 % Nucleated Red Blood Cells % 2.7 % Neutrophils # (Manual) 11.43 1.4-6.5 K/uL Total Absolute Neutrophils 11.43 1.4-6.5 K/uL Lymphocytes # (Manual) 0.48 1.2-3.4 K/uL Total Absolute Lymphocytes 0.48 1.2-3.4 K/uL Monocytes # (Manual) 0.59 0.11-0.59 K/uL Metamyelocytes # 0.71 0-0 K/uL Myelocytes # 0.48 0-0 K/uL Toxic Granulation 2+ Toxic Vacuolation 1+ Dohle Bodies 1+ Polychromasia 1+ Sodium Level 135 136-145 mmol/L Potassium Level 3.7 3.5-5.1 mmol/L Chloride Level 99 98-107 mmol/L Carbon Dioxide Level 27 21-32 mmol/L Anion Gap 9.0 3-11 mmol/L Blood Urea Nitrogen 15 7-18 mg/dl Creatinine 1.07 0.60-1.20 mg/dl Est Creatinine Clear Calc Drug Dose 67.2 ml/min Estimated GFR () 67.2 Estimated GFR (Non- 58.0 BUN/Creatinine Ratio 13.6 10-20 Random Glucose 196 70-99 mg/dl Calcium Level 8.0 8.5-10.1 mg/dl Magnesium Level 1.5 1.8-2.4 mg/dl Total Bilirubin 0.3 0.2-1 mg/dl Direct Bilirubin < 0.1 0-0.2 mg/dl Aspartate Amino Transf (AST/SGOT) 25 15-37 U/L Alanine Aminotransferase (ALT/SGPT) 22 12-78 U/L Alkaline Phosphatase 85 45-117 U/L Troponin I 0.074 0-0.045 ng/ml Total Protein 5.8 6.4-8.2 gm/dl Albumin 2.6 3.4-5.0 gm/dl Microbiology Results 11/02/17 Blood Culture, Ordered Pending 11/02/17 Blood Culture, Ordered Pending Diagnostic Radiology CXR 1. Cardiomegaly with decreased pulmonary edema and resolved pleural effusions. No new infiltrate. EKG HR 103, sinus rhythm, no signs of acute ischemia or infarct Impression Assessment and Plan 57 year old female with history of B cell Lymphoma on chemotherapy, CAD s/p Stent, CHF Systolic EF 45%, DM 2, HTN, and other problems noted below presenting with severe generalized pain. GENERALIZED PAIN SECONDARY TO CHEMOTHERAPY? - not controlled adequately by oral analgesics at home- [place], Tramadol - patient rates pain 9/10 when severe - start Dilaudid IV 0.5mg q4h Senokot S daily monitor response and titrate accordingly FEVER, TACHYCARDIA - patient noted to have fever of 37.7 and tachycardia of 112 while being observed in the ER (+) leukocytosis of 13k - immunocompromised state due to chemotherapy - no obvious focus of infection at this time though - check blood and urine cultures CXR no signs of pneumonia - will cover empirically with Vanco + Zosyn ff up cultures MILD TROPONIN ELEVATION HISTORY OF CAD, S/P STENT PLACEMENT CHF SYSTOLIC TYPE EF 45% - denies cardiac symptoms - was also having mild troponin elevated during last month's admission 0.13--> 0.05 - today, trop 0.07, no EKG changes to suggest acute infarct - check CM x 2 more sets - mil troponin elevation may be related to tachycardia, cardiomyopathy - appears to be on the dry side, will give NSS at 60cc/hr x 1 bag monitor ANEMIA - Hg usually 9-10, now 8 from Chemo? denies symptoms of GI bleed - monitor HYPOMAGNESEMIA - give Mg 2mg IV at the ER DM 2 - hold glipizide and metformin - ISS and Pharmacy Glycemic Consult B CELL LYMPHOMA - follows with Dr. Dobbs 3rd chemo session 2 weeks ago, supposed to have 4th Chemo on 11/12/17 DVT PROPHYLAXIS Lovenox FULL CODE PER PATIENT DISPOSITION lives at home with significant other needs PT/OT evaluation ff up with PCP Dr. Murray, Oncologist Dr. Sallie Dobbs Advanced Directives Existing Living Will: No Existing Power of Gem Setter: No VTE Prophylaxis VTE Risk Assessment Done? Y/N: Yes Risk Level: High Given or contraindicated: Enoxaparin (Lovenox)SQ
[2017-11-02] MEDS ORDERED: SODIUM CHLORIDE 0.9% 1000ML 1,000 ML IV SCH (02:00)
[2017-11-02] MEDS ORDERED: VANCOMYCIN INJ 2,000 MG in SODIUM CHLORIDE 0.9% 500ML 500 ML IV SCH (02:00)
[2017-11-02] MEDS: ACETAMINOPHEN 325 MG TAB PO PRN ×3 (03:49→12:00)
[2017-11-02 04:16] LABS: INR 1.1 (0.9-1.1)
[2017-11-02 04:38] LABS: CKMB 0.7 ng/ml (0.5-3.6)
--- NOTE | 2017-11-02 05:01 | EMERGENCY ROOM VISIT NOTE ---
History First contact with patient: 21:42 Chief Complaint: PAIN (GENERALIZED) Stated Complaint: INTRACTABLE PAIN History of Present Illness The patient is a 57 year old female who presents to the Emergency Room with complaints of increasing generalized pain after receiving the Neulasta shot after chemotherapy a week and a half ago. Patient has B-cell lymphoma and follows at Dr. Dobbs. She was diagnosed in April of this year. She gets chemotherapy every 2 weeks. No radiation. Patient describes the pain as aching , ranging in severity 8 out of 10 throughout her body with generalized weakness and fatigue. Nothing makes it better or worse. Patient denies fever, chills, cough, congestion, vomiting, diarrhea, diaphoresis, cold symptoms. Review of Systems See HPI for pertinent positives & negatives. A total of 10 systems reviewed and were otherwise negative. Past Medical/Surgical History Medical Problems: (1) CAD (coronary artery disease) (2) Chronic systolic heart failure (3) CKD (chronic kidney disease), stage III (4) DM type 2 (diabetes mellitus, type 2) (5) Dyslipidemia (6) Dyspnea (7) Heart disease (8) History of migraine (9) Hypertension (10) Intractable pain (11) Ischemic cardiomyopathy (12) Myocardial infarction (13) OCD (obsessive compulsive disorder) (14) DANGELO (obstructive sleep apnea) (15) Pneumonia Surgical Problems: (1) S/P cardiac cath Family History Heart disease Social History Smoking Status: Former Smoker Alcohol Use: none Drug Use: none Marital Status: Housing Status: lives with family Occupation Status: employed Current/Historical Medications Scheduled Amlodipine (Norvasc), 2.5 MG PO DAILY Ascorbic Acid (Vitamin C), 500 MG PO TID Aspirin (Aspirin 81), 81 MG PO DAILY Atorvastatin Calcium (Lipitor), 80 MG PO DAILY Buspirone Hcl (Buspirone Hcl), 20 MG PO BID Carvedilol (Coreg), 25 MG PO BID Clopidogrel Bisulfate (Clopidogrel), 75 MG PO QAM Fenofibrate Micronized (Tricor), 67 MG PO DAILY Gabapentin (Neurontin), 300 MG PO TID Glipizide (Glucotrol), 20 TAB PO HS Glipizide (Glucotrol), 10 MG PO QAM Home O2 Therapy (Oxygen), 2 LITERS NA PRN Insulin Aspart (Novolog Flexpen), 1 DOSE SC TIDM Insulin Detemir (Levemir Flextouch), 10 UNITS SC HS Metformin Hcl (Glucophage), 1,000 MG PO BID Trazodone Hcl (Desyrel), 50 MG PO HS Venlafaxine Hcl (Effexor Xr), 1 CAP PO DAILY Venlafaxine Hcl (Effexor Xr), 1 CAP PO DAILY Scheduled PRN Albuterol Hfa (Ventolin Hfa), 1-2 PUFFS INH Q4 PRN for SOB/Wheezing Hydrocodone/Acetaminophen 5MG/325MG (Prewitt 5MG/325MG), 2 TABLET PO Q6 PRN for Pain Hydroxyzine Pamoate (Vistaril), 25 MG PO Q6H PRN for Anxiety/Agitation Lorazepam (Lorazepam), 0.5 MG PO Q6H PRN for Anxiety/Agitation Nitroglycerin (Nitrostat), 0.4 MG UT UD PRN for Chest Pain Physical Exam Vital Signs Date Time Temp Pulse Resp B/P (MAP) Pulse Ox O2 Delivery O2 Flow Rate FiO2 11/01/17 23:06 104 20 104/56 93 Room Air 11/01/17 22:32 105 11/01/17 22:19 94 Room Air 11/01/17 22:19 94 Room Air 11/01/17 21:38 37.1 106 20 112/64 94 Room Air Physical Exam VITALS: Vitals are noted on the nurse's note and reviewed by myself. Vital signs stable. GENERAL: Pleasant female, in no acute distress, nondiaphoretic, well-developed well-nourished. SKIN: The skin was without rashes, erythema, edema, or bruising. There is no tenting of the skin. Capillary reflex less than 2 seconds. HEAD: Normocephalic atraumatic. EARS: External auditory canals clear, tympanic membranes pearly hartley without erythema or effusion bilaterally. EYES: Pupils equal round and reactive to light and accommodation. Conjunctivae without injection, sclerae without icterus. Extraocular movements intact. NOSE: Patent, turbinates without inflammation or discharge. MOUTH: Mucous membranes moist. Pharynx without erythema or exudate. Uvula midline. Airway patent. Tongue does not deviate. NECK: Supple without nuchal rigidity. No lymphadenopathy. No thyromegaly. Cervical spine is nontender. No JVD. HEART: Regular rate and rhythm LUNGS: Clear to auscultation bilaterally without wheezes, rales or rhonchi. No dullness to percussion. No retractions or accessory muscle use. ABDOMEN: Positive bowel sounds x 4. Normal tympanic percussion. Soft, nontender, without masses or organomegaly. Person sign negative. No guarding or rebound tenderness. MUSCULOSKELETAL: No muscle atrophy, erythema, or edema noted. NEURO: Patient was alert and oriented to person place and time. Normal sensation to light and sharp touch. No focal neurological deficits. Medical Decision & Procedures Laboratory Results 11/01/17 22:15 Red Blood Count 2.87, Mean Corpuscular Volume 88.5, Mean Corpuscular Hemoglobin 28.2, Mean Corpuscular Hemoglobin Concent 31.9, Mean Platelet Volume 9.4 11/01/17 22:15 Test 11/01/17 22:15 White Blood Count 13.69 K/uL (4.8-10.8) Red Blood Count 2.87 M/uL (4.2-5.4) Hemoglobin 8.1 g/dL (12.0-16.0) Hematocrit 25.4 % (37-47) Mean Corpuscular Volume 88.5 fL (80-100) Mean Corpuscular Hemoglobin 28.2 pg (25-34) Mean Corpuscular Hemoglobin Concent 31.9 g/dl (32-36) Platelet Count 166 K/uL (130-400) Mean Platelet Volume 9.4 fL (7.4-10.4) RDW Standard Deviation 54.8 fL (36.4-46.3) RDW Coefficient of Variation 17.1 % (11.5-14.5) Nucleated RBC Absolute Count (auto) 0.37 K/uL (0-0) Neutrophils % (Manual) 83.5 % Lymphocytes % (Manual) 3.5 % Monocytes % (Manual) 4.3 % Metamyelocytes % 5.2 % Myelocytes % 3.5 % Nucleated Red Blood Cells % 2.7 % Neutrophils # (Manual) 11.43 K/uL (1.4-6.5) Total Absolute Neutrophils 11.43 K/uL (1.4-6.5) Lymphocytes # (Manual) 0.48 K/uL (1.2-3.4) Total Absolute Lymphocytes 0.48 K/uL (1.2-3.4) Monocytes # (Manual) 0.59 K/uL (0.11-0.59) Metamyelocytes # 0.71 K/uL (0-0) Myelocytes # 0.48 K/uL (0-0) Toxic Granulation 2+ Toxic Vacuolation 1+ Dohle Bodies 1+ Polychromasia 1+ Anion Gap 9.0 mmol/L (3-11) Est Creatinine Clear Calc Drug Dose 67.2 ml/min Estimated GFR () 67.2 Estimated GFR (Non- 58.0 BUN/Creatinine Ratio 13.6 (10-20) Calcium Level 8.0 mg/dl (8.5-10.1) Magnesium Level 1.5 mg/dl (1.8-2.4) Total Bilirubin 0.3 mg/dl (0.2-1) Direct Bilirubin < 0.1 mg/dl (0-0.2) Aspartate Amino Transf (AST/SGOT) 25 U/L (15-37) Alanine Aminotransferase (ALT/SGPT) 22 U/L (12-78) Alkaline Phosphatase 85 U/L (45-117) Total Protein 5.8 gm/dl (6.4-8.2) Albumin 2.6 gm/dl (3.4-5.0) Medications Administered Medications (Trade) Dose Ordered Sig/Chantale Route Start Time Stop Time Status Last Admin Dose Admin Hydromorphone HCl (Dilaudid Inj) 1 mg NOW STAT IV 11/01/17 21:49 11/01/17 21:52 DC 11/01/17 22:21 1 MG Ondansetron HCl (Zofran Inj) 4 mg NOW STAT IV 11/01/17 21:49 11/01/17 21:52 DC 11/01/17 22:22 4 MG Magnesium Sulfate (Magnesium Sulfate) 2 gm NOW STAT IV 11/01/17 23:11 11/01/17 23:12 DC 11/01/17 23:26 2 GM Hydromorphone HCl (Dilaudid Inj) 1 mg NOW STAT IV 11/01/17 23:21 11/01/17 23:22 DC 11/01/17 23:26 1 MG ED Course Prior records/ancillary studies reviewed and summarized above. Nursing notes reviewed. Additional history obtained from friend. The patient's history was concerning for generalized pain and weakness after Neulasta shot week and half ago. Differential diagnosis: Etiologies such as metabolic, infection, hypo/hyperglycemia, electrolyte abnormalities, cardiac sources, intracerebral event, toxicologic, neurologic, as well as others were entertained. Physical examination: As above. ER treatment provided: IV Lock Dilaudid, Zofran, magnesium On reassessment the patient felt better. Diagnostics interpretation by me: ECG: Normal sinus, normal intervals, no acute ST-T wave changes, poor baseline, rate of 106. Impression sinus tachycardia interpreted by myself. Repeat EKG is unchanged. The labs revealed elevated troponin. Mild leukocytosis. Stable anemia per chart review Imaging studies: DIAGNOSTIC IMAGING [~ rep ct add3]] CHEST 2 VIEWS ROUTINE CLINICAL HISTORY: 57 years-old Female presenting with pain, B cell lymphoma. TECHNIQUE: PA and lateral views of the chest were obtained. COMPARISON: 09/16/2017. FINDINGS: Left subclavian Mediport is accessed and terminates in the lower SVC. Cardiac silhouette remains moderately enlarged. Prominence of pulmonary vasculature. Interval decrease in left lung and right basilar opacities. No pleural effusion or pneumothorax. Posterior thoracolumbar fusion hardware. Upper abdomen normal. IMPRESSION: 1. Cardiomegaly with decreased pulmonary edema and resolved pleural effusions. No new infiltrate. Electronically signed by: Fabrice Foss M.D. Consultation: A consultation was placed with the hospitalist, Dr Coronel. The case was discussed and diagnostics were reviewed. The patient was evaluated in the ER for further treatment. Exam and history seem consistent with generalized pain with elevated troponin with no acute findings on the EKG. Patient was admitted to medicine. While waiting in the ER to be seen by medicine patient did develop a low-grade fever. Further laboratory test was ordered by the admitting doctor. Patient no pneumonia on x-ray. She is tolerating fluids. She felt better to be medicated as above.By the evaluation outlined above emergent etiologies such as electrolyte abnormalities, intracerebral event, toxologic, neurologic, abnormalities blood glucose, metabolic, as well as others were deemed relatively unlikely. The pt informed about the findings as listed above. All questions were answered and pleased with the treatment. Case reviewed with my Attending Medical Decision As above Medication Reconcilliation Current Medication List: was personally reviewed by me Blood Pressure Screening Patient's blood pressure: Normal blood pressure Impression Primary Impression: Intractable pain Additional Impressions: Elevated troponin Anemia Hypomagnesemia Departure Information Dispostion Still a Patient Condition FAIR Referrals Orion Murray D.O. (PCP) Forms WORK / SCHOOL INSTRUCTIONS, HOME CARE DOCUMENTATION FORM, IMPORTANT VISIT INFORMATION Patient Instructions [facility] Problem Qualifiers
[2017-11-02] MEDS ORDERED: PIPERACILL/TAZOBAC IV 4.5 GM in DEXTROSE 5% 100ML IV SCH (06:00)
[2017-11-02] MEDS: TRICOR~ORDER AWAITING ACTION SCH ×3 (08:00→23:36)
[2017-11-02] MEDS: INSULIN ASPART 100 UNITS/ML 3 ML PEN SC SCH ×4 (08:00→20:58)
[2017-11-02] MEDS: ASPIRIN 81 MG ECTAB PO SCH (08:02)
[2017-11-02] MEDS: VENLAFAXINE HCL XR 37.5 MG CAPXR PO SCH (08:03)
[2017-11-02] MEDS: DOCUSATE SODIUM/SENNA 50/8.6MG TAB PO SCH (08:04)
[2017-11-02] MEDS: GABAPENTIN 300 MG CAP PO SCH ×3 (08:04→20:54)
[2017-11-02] MEDS: VENLAFAXINE HCL XR 150 MG CAPXR PO SCH (08:04)
[2017-11-02] MEDS: CLOPIDOGREL BISULFATE 75 MG TAB PO SCH (08:05)
[2017-11-02] MEDS: CARVEDILOL 25 MG TAB PO SCH (08:05)
[2017-11-02] MEDS ORDERED: ENOXAPARIN 40 MG/0.4 ML SYR SC SCH (09:00)
[2017-11-02] MEDS ORDERED: AMLODIPINE BESYLATE 5 MG TAB PO SCH (09:00)
[2017-11-02] MEDS: HYDROmorphone INJ 0.5 MG/0.5 ML SYR IV PRN ×2 (09:08→21:47)
[2017-11-02 11:22] LABS: CKMB 0.8 ng/ml (0.5-3.6)
--- NOTE | 2017-11-02 13:44 | Progress Note ---
Medicine Progress Note Date & Time of Visit: Nov 02, 2017 at 13:14. 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 She reports significant pain today which is helped by Dilaudid. She did not mention a migraine to me but told the nurse this and is lying in a dark room appearing uncomfortable and in some pain. She is requesting some regular food and states that her nausea is there but is controlled with medications. Denies chest pain or SOB. Objective Last 8 Hrs Date Time Temp Pulse Resp B/P (MAP) Pulse Ox O2 Delivery O2 Flow Rate FiO2 11/02/17 12:00 Room Air 11/02/17 11:36 37.6 93 18 84/50 (61) 94 Nasal Cannula 2.0 11/02/17 10:12 102 98 11/02/17 08:05 104/68 (80) 11/02/17 08:00 Nasal Cannula 2.0 11/02/17 07:40 36.9 100 19 96/61 (73) 99 Nasal Cannula 2.0 11/02/17 05:51 37.8 Physical Exam: GEN: WNWD, in mild distress, alert and appropriate HEENT: NC/AT, normal sclerae CARDIO: tachy, S1/2 heard without m/g/r CHEST: L anterior chest wall port intact and clean, dry and intact. LUNGS: CTA bilaterally, no crackles, rales or wheezes, good diaphragmatic excursion ABD: soft, non-tender, non-distended, no rebound or guarding, +BS EXTREMITY: RP and DP palpable 2+ bilat, no LE swelling or edema, extremities are warm and well-perfused NEURO: CN 2-12 grossly intact, no gross focal deficits. MUSC: moves all extremities equally. SKIN: warm and dry Laboratory Results: 11/01/17 22:15 Red Blood Count 2.87, Mean Corpuscular Volume 88.5, Mean Corpuscular Hemoglobin 28.2, Mean Corpuscular Hemoglobin Concent 31.9, Mean Platelet Volume 9.4 11/01/17 22:15 Test 11/01/17 22:15 11/02/17 04:00 11/02/17 06:20 11/02/17 07:19 White Blood Count 13.69 K/uL (4.8-10.8) Red Blood Count 2.87 M/uL (4.2-5.4) Hemoglobin 8.1 g/dL (12.0-16.0) Hematocrit 25.4 % (37-47) Mean Corpuscular Volume 88.5 fL (80-100) Mean Corpuscular Hemoglobin 28.2 pg (25-34) Mean Corpuscular Hemoglobin Concent 31.9 g/dl (32-36) Platelet Count 166 K/uL (130-400) Mean Platelet Volume 9.4 fL (7.4-10.4) RDW Standard Deviation 54.8 fL (36.4-46.3) RDW Coefficient of Variation 17.1 % (11.5-14.5) Nucleated RBC Absolute Count (auto) 0.37 K/uL (0-0) Neutrophils % (Manual) 83.5 % Lymphocytes % (Manual) 3.5 % Monocytes % (Manual) 4.3 % Metamyelocytes % 5.2 % Myelocytes % 3.5 % Nucleated Red Blood Cells % 2.7 % Neutrophils # (Manual) 11.43 K/uL (1.4-6.5) Total Absolute Neutrophils 11.43 K/uL (1.4-6.5) Lymphocytes # (Manual) 0.48 K/uL (1.2-3.4) Total Absolute Lymphocytes 0.48 K/uL (1.2-3.4) Monocytes # (Manual) 0.59 K/uL (0.11-0.59) Metamyelocytes # 0.71 K/uL (0-0) Myelocytes # 0.48 K/uL (0-0) Toxic Granulation 2+ Toxic Vacuolation 1+ Dohle Bodies 1+ Polychromasia 1+ Anion Gap 9.0 mmol/L (3-11) Est Creatinine Clear Calc Drug Dose 67.2 ml/min Estimated GFR () 67.2 Estimated GFR (Non- 58.0 BUN/Creatinine Ratio 13.6 (10-20) Calcium Level 8.0 mg/dl (8.5-10.1) Magnesium Level 1.5 mg/dl (1.8-2.4) Total Bilirubin 0.3 mg/dl (0.2-1) Direct Bilirubin < 0.1 mg/dl (0-0.2) Aspartate Amino Transf (AST/SGOT) 25 U/L (15-37) Alanine Aminotransferase (ALT/SGPT) 22 U/L (12-78) Alkaline Phosphatase 85 U/L (45-117) Total Protein 5.8 gm/dl (6.4-8.2) Albumin 2.6 gm/dl (3.4-5.0) Prothrombin Time 11.4 SECONDS (9.0-12.0) Prothromb Time International Ratio 1.1 (0.9-1.1) Urine Color DK YELLOW Urine Appearance TURBID (CLEAR) Urine pH 5.0 (4.5-7.5) Urine Specific [place] 1.035 (1.000-1.030) Urine Protein 4+ (NEG) Urine Glucose (UA) TRACE (NEG) Urine Ketones NEG (NEG) Urine Occult Blood TRACE (NEG) Urine Nitrite NEG (NEG) Urine Bilirubin NEG (NEG) Urine Urobilinogen NEG (NEG) Urine Leukocyte Esterase NEG (NEG) Urine WBC (Auto) 5-10 /hpf (0-5) Urine RBC (Auto) 0-4 /hpf (0-4) Urine Hyaline Casts (Auto) >30 /lpf (0-5) Urine Epithelial Cells (Auto) >30 /lpf (0-5) Urine Bacteria (Auto) NEG (NEG) Urine Renal Epithelial Cells /lpf (0-5) Urine Crystals AMM BIURATE (NONE PRSENT) Lactic Acid Level 1.1 mmol/L (0.4-2.0) Test 11/02/17 10:27 11/02/17 11:16 Total Creatine Kinase 31 U/L (26-192) Creatine Kinase MB 0.8 ng/ml (0.5-3.6) Creatine Kinase MB Ratio 2.6 (0-3.0) Troponin I 0.082 ng/ml (0-0.045) Bedside Glucose 125 mg/dl (70-90) Date/Time Source Procedure Growth Status 11/02/17 01:49 Blood Blood Culture Pending Received Last 24 Hours Test 11/01/17 22:15 11/02/17 04:00 11/02/17 06:20 11/02/17 06:43 White Blood Count 13.69 K/uL Red Blood Count 2.87 M/uL Hemoglobin 8.1 g/dL Hematocrit 25.4 % Mean Corpuscular Volume 88.5 fL Mean Corpuscular Hemoglobin 28.2 pg Mean Corpuscular Hemoglobin Concent 31.9 g/dl Platelet Count 166 K/uL Mean Platelet Volume 9.4 fL RDW Standard Deviation 54.8 fL RDW Coefficient of Variation 17.1 % Nucleated RBC Absolute Count (auto) 0.37 K/uL Neutrophils % (Manual) 83.5 % Lymphocytes % (Manual) 3.5 % Monocytes % (Manual) 4.3 % Metamyelocytes % 5.2 % Myelocytes % 3.5 % Nucleated Red Blood Cells % 2.7 % Neutrophils # (Manual) 11.43 K/uL Total Absolute Neutrophils 11.43 K/uL Lymphocytes # (Manual) 0.48 K/uL Total Absolute Lymphocytes 0.48 K/uL Monocytes # (Manual) 0.59 K/uL Metamyelocytes # 0.71 K/uL Myelocytes # 0.48 K/uL Toxic Granulation 2+ Toxic Vacuolation 1+ Dohle Bodies 1+ Polychromasia 1+ Sodium Level 135 mmol/L Potassium Level 3.7 mmol/L Chloride Level 99 mmol/L Carbon Dioxide Level 27 mmol/L Anion Gap 9.0 mmol/L Blood Urea Nitrogen 15 mg/dl Creatinine 1.07 mg/dl Est Creatinine Clear Calc Drug Dose 67.2 ml/min Estimated GFR () 67.2 Estimated GFR (Non- 58.0 BUN/Creatinine Ratio 13.6 Random Glucose 196 mg/dl Calcium Level 8.0 mg/dl Magnesium Level 1.5 mg/dl Total Bilirubin 0.3 mg/dl Direct Bilirubin < 0.1 mg/dl Aspartate Amino Transf (AST/SGOT) 25 U/L Alanine Aminotransferase (ALT/SGPT) 22 U/L Alkaline Phosphatase 85 U/L Troponin I 0.074 ng/ml 0.072 ng/ml Total Protein 5.8 gm/dl Albumin 2.6 gm/dl Prothrombin Time 11.4 SECONDS Prothromb Time International Ratio 1.1 Total Creatine Kinase 29 U/L Creatine Kinase MB 0.7 ng/ml Creatine Kinase MB Ratio 2.4 Urine Color DK YELLOW Urine Appearance TURBID Urine pH 5.0 Urine Specific [place] 1.035 Urine Protein 4+ Urine Glucose (UA) TRACE Urine Ketones NEG Urine Occult Blood TRACE Urine Nitrite NEG Urine Bilirubin NEG Urine Urobilinogen NEG Urine Leukocyte Esterase NEG Urine WBC (Auto) 5-10 /hpf Urine RBC (Auto) 0-4 /hpf Urine Hyaline Casts (Auto) >30 /lpf Urine Epithelial Cells (Auto) >30 /lpf Urine Bacteria (Auto) NEG Urine Renal Epithelial Cells /lpf Urine Crystals AMM BIURATE Bedside Glucose 126 mg/dl Test 11/02/17 07:19 11/02/17 10:27 11/02/17 11:16 Lactic Acid Level 1.1 mmol/L Total Creatine Kinase 31 U/L Creatine Kinase MB 0.8 ng/ml Creatine Kinase MB Ratio 2.6 Troponin I 0.082 ng/ml Bedside Glucose 125 mg/dl Date/Time Source Procedure Growth Status 11/02/17 01:49 Blood Blood Culture Pending Received 11/02/17 01:42 Blood Blood Culture Pending Received Assessment & Plan 57 year old female with history of B cell Lymphoma on chemotherapy, CAD s/p Stent, CHF Systolic EF 45%, DM 2, HTN, and other problems noted below presenting with severe generalized pain after Neulasta on 10/31. She reports significant pain today which is helped by Dilaudid. She did not mention a migraine to me but told the nurse this and is lying in a dark room appearing uncomfortable and in some pain. She is requesting some regular food and states that her nausea is there but is controlled with medications. Denies chest pain or SOB. 1. Generalized pain 2/2 Neulasta and recent chemo-controlled better with IV dilaudid. Discussed a Dilaudid pump with her and will consider that after her BP improves somewhat (currently mid-80s systolic). She is soon to receive the Vanc which is 500mls over 2 hours, so will recheck pressure after this bolus. She takes Toradol at home for migraines so will try using this for her pain now. Pt denies any constipation. 2. Mild fever and tachycardia on admission with mild leukocytosis. No clear focus of infection at this point, empirically covering with Vanc and Zosyn while awaiting cultures in immunocompromised patient. 3. Troponin elevation-pt denies any chest pain or other cardiac symptoms at this time. She also had a mild troponin elevation during her last admission. Nonischemic EKG and no elevation in troponin with serial blood draws. May be related to tachycardia in setting of known CAD vs chemo. Will check echo to ensure no wall motion abnormalities. 4. Anemia-somewhat expected on chemotherapy. Denies acute blood loss. Will cont to monitor. 5. DMII-pharmacy consult, ISS with carb coverage. Apprec assistance with management. 6. B cell lymphoma-Dr. Dobbs is oncologist. Will consult to assess her in setting of mild fever and hypotension. DVT PROPHYLAXIS Lovenox FULL CODE PER PATIENT DISPOSITION needs PT/OT evaluation ff up with PCP Dr. Murray, Oncologist Dr. Sallie Acuna [facility] Hospitalist Current Inpatient Medications: Current Inpatient Medications Medications (Trade) Dose Ordered Sig/Chantale Route Start Time Stop Time Status Last Admin Dose Admin Hydromorphone HCl (Dilaudid Inj) 0.5 mg Q4H PRN IV 11/02/17 00:15 11/16/17 00:14 11/02/17 09:08 0.5 MG Senna/Docusate Sodium (Senokot S Tab) 1 tab QAM PO 11/02/17 09:00 12/02/17 08:59 11/02/17 08:04 1 TAB Sodium Chloride 1,000 ml @ 60 mls/hr [id number] IV 11/02/17 02:00 11/02/17 18:39 11/02/17 02:44 60 MLS/HR Amlodipine Besylate (Norvasc Tab) 2.5 mg DAILY PO 11/02/17 09:00 12/02/17 08:59 11/02/17 08:03 2.5 MG Aspirin (Ecotrin Tab) 81 mg DAILY PO 11/02/17 09:00 12/02/17 08:59 11/02/17 08:02 81 MG Carvedilol (Coreg Tab) 25 mg BID PO 11/02/17 09:00 12/02/17 08:59 11/02/17 08:05 25 MG Clopidogrel Bisulfate (plAVix TAB) 75 mg QAM PO 11/02/17 09:00 12/02/17 08:59 11/02/17 08:05 75 MG Gabapentin (Neurontin Cap) 300 mg TID PO 11/02/17 09:00 12/02/17 08:59 11/02/17 08:04 300 MG Acetaminophen/ Hydrocodone Bitart ([place] 5/325 Tab) 1 tab Q6 PRN PO 11/02/17 00:15 11/16/17 00:14 Lorazepam (Ativan Tab) 0.5 mg Q6H PRN PO 11/02/17 00:15 12/02/17 00:14 Trazodone HCl (Desyrel Tab) 50 mg HS PO 11/02/17 21:00 12/02/17 20:59 Venlafaxine HCl (effeXOR EXTENDED REL CAP) 37.5 mg DAILY PO 11/02/17 09:00 12/02/17 08:59 11/02/17 08:03 37.5 MG Venlafaxine HCl (effeXOR EXTENDED REL CAP) 150 mg DAILY PO 11/02/17 09:00 12/02/17 08:59 11/02/17 08:04 150 MG Buspirone HCl (Buspar Tab) 20 mg BID PO 11/02/17 09:00 12/02/17 08:59 11/02/17 08:04 20 MG Miscellaneous Information (Order Awaiting Action) 1 ea QS N/A 11/02/17 08:00 12/02/17 07:59 Enoxaparin Sodium (Lovenox Inj) 40 mg Q24H SC 11/02/17 09:00 12/02/17 08:59 11/02/17 08:02 40 MG Acetaminophen (Tylenol Tab) 650 mg Q4H PRN PO 11/02/17 00:15 12/02/17 00:14 11/02/17 12:00 650 MG Promethazine HCl 12.5 mg/Sodium Chloride 50.5 ml @ 204 mls/hr Q6H PRN IV 11/02/17 00:15 12/02/17 00:14 Insulin Aspart (novoLOG ASPART) SLIDING SCALE If C... ACHS SC 11/02/17 07:00 12/02/17 06:59 Glucose (Glucose 40% Gel) 15-30 GRAMS 15 GRAMS... UD PRN PO 11/02/17 01:00 12/02/17 00:59 Glucose (Glucose Chew Tab) 4-8 Tablets 4 Tabl... UD PRN PO 11/02/17 01:00 12/02/17 00:59 Dextrose (Dextrose 50% 50ML Syringe) 25-50ML OF 50% DW IV FOR... UD PRN IV 11/02/17 01:00 12/02/17 00:59 Glucagon (Glucagon Inj) 1 mg UD PRN SQ 11/02/17 01:00 12/02/17 00:59 Piperacillin Sod/ Tazobactam Sod (Consult) 1 ea DAILY PRN N/A 11/02/17 01:35 12/02/17 01:34 Vancomycin HCl (Consult) 1 ea DAILY PRN N/A 11/02/17 01:36 12/02/17 01:35 Piperacillin Sod/ Tazobactam Sod 4.5 gm/Dextrose 120 ml @ 30 mls/hr Q8H IV 11/02/17 14:00 11/09/17 13:59 Vancomycin HCl 1500 mg/Sodium Chloride 530 ml @ 200 mls/hr Q12@0200,1400 IV 11/02/17 14:00 11/09/17 13:59
[2017-11-02] MEDS: VANCOMYCIN INJ 1,500 MG in SODIUM CHLORIDE 0.9% 500ML 500 ML IV SCH (13:56)
[2017-11-02] MEDS: PIPERACILL/TAZOBAC IV 4.5 GM in DEXTROSE 5% 100ML IV SCH ×2 (13:57→21:46)
[2017-11-02] MEDS ORDERED: KETOROLAC TROMETHAMINE 30 MG/ML VIAL IV ONE (14:00)
[2017-11-02] MEDS: LEVALBUTEROL 1.25MG/3ML NEB INH PRN ×2 (14:59→21:01)
--- NOTE | 2017-11-02 15:59 | Pharmacy Progress Note ---
Pharmacy Antibiotic Consult Date of Service: Nov 02, 2017. Pharmacy Dosing Scope Pharmacy is consulted to initiate vancomycin IV dosing therapy, order appropriate labs and adjust drug dose/frequency. Subjective The patient is a 57 year old female admitted on Nov 02, 2017 at 00:04. Objective Height (Feet): 5 Height (Inches): 5.00 Weight (Kilograms): 103.500 Lab Results (24hrs): Test 11/01/17 22:15 11/02/17 04:00 11/02/17 06:20 11/02/17 06:43 White Blood Count 13.69 K/uL (4.8-10.8) Red Blood Count 2.87 M/uL (4.2-5.4) Hemoglobin 8.1 g/dL (12.0-16.0) Hematocrit 25.4 % (37-47) Mean Corpuscular Volume 88.5 fL (80-100) Mean Corpuscular Hemoglobin 28.2 pg (25-34) Mean Corpuscular Hemoglobin Concent 31.9 g/dl (32-36) Platelet Count 166 K/uL (130-400) Mean Platelet Volume 9.4 fL (7.4-10.4) RDW Standard Deviation 54.8 fL (36.4-46.3) RDW Coefficient of Variation 17.1 % (11.5-14.5) Nucleated RBC Absolute Count (auto) 0.37 K/uL (0-0) Neutrophils % (Manual) 83.5 % Lymphocytes % (Manual) 3.5 % Monocytes % (Manual) 4.3 % Metamyelocytes % 5.2 % Myelocytes % 3.5 % Nucleated Red Blood Cells % 2.7 % Neutrophils # (Manual) 11.43 K/uL (1.4-6.5) Total Absolute Neutrophils 11.43 K/uL (1.4-6.5) Lymphocytes # (Manual) 0.48 K/uL (1.2-3.4) Total Absolute Lymphocytes 0.48 K/uL (1.2-3.4) Monocytes # (Manual) 0.59 K/uL (0.11-0.59) Metamyelocytes # 0.71 K/uL (0-0) Myelocytes # 0.48 K/uL (0-0) Toxic Granulation 2+ Toxic Vacuolation 1+ Dohle Bodies 1+ Polychromasia 1+ Sodium Level 135 mmol/L (136-145) Potassium Level 3.7 mmol/L (3.5-5.1) Chloride Level 99 mmol/L (98-107) Carbon Dioxide Level 27 mmol/L (21-32) Anion Gap 9.0 mmol/L (3-11) Blood Urea Nitrogen 15 mg/dl (7-18) Creatinine 1.07 mg/dl (0.60-1.20) Est Creatinine Clear Calc Drug Dose 67.2 ml/min Estimated GFR () 67.2 Estimated GFR (Non- 58.0 BUN/Creatinine Ratio 13.6 (10-20) Random Glucose 196 mg/dl (70-99) Calcium Level 8.0 mg/dl (8.5-10.1) Magnesium Level 1.5 mg/dl (1.8-2.4) Total Bilirubin 0.3 mg/dl (0.2-1) Direct Bilirubin < 0.1 mg/dl (0-0.2) Aspartate Amino Transf (AST/SGOT) 25 U/L (15-37) Alanine Aminotransferase (ALT/SGPT) 22 U/L (12-78) Alkaline Phosphatase 85 U/L (45-117) Total Protein 5.8 gm/dl (6.4-8.2) Albumin 2.6 gm/dl (3.4-5.0) Prothrombin Time 11.4 SECONDS (9.0-12.0) Prothromb Time International Ratio 1.1 (0.9-1.1) Total Creatine Kinase 29 U/L (26-192) Creatine Kinase MB 0.7 ng/ml (0.5-3.6) Creatine Kinase MB Ratio 2.4 (0-3.0) Troponin I 0.072 ng/ml (0-0.045) Urine Color DK YELLOW Urine Appearance TURBID (CLEAR) Urine pH 5.0 (4.5-7.5) Urine Specific [place] 1.035 (1.000-1.030) Urine Protein 4+ (NEG) Urine Glucose (UA) TRACE (NEG) Urine Ketones NEG (NEG) Urine Occult Blood TRACE (NEG) Urine Nitrite NEG (NEG) Urine Bilirubin NEG (NEG) Urine Urobilinogen NEG (NEG) Urine Leukocyte Esterase NEG (NEG) Urine WBC (Auto) 5-10 /hpf (0-5) Urine RBC (Auto) 0-4 /hpf (0-4) Urine Hyaline Casts (Auto) >30 /lpf (0-5) Urine Epithelial Cells (Auto) >30 /lpf (0-5) Urine Bacteria (Auto) NEG (NEG) Urine Renal Epithelial Cells /lpf (0-5) Urine Crystals AMM BIURATE (NONE PRSENT) Bedside Glucose 126 mg/dl (70-90) Test 11/02/17 07:19 11/02/17 10:27 11/02/17 11:16 Lactic Acid Level 1.1 mmol/L (0.4-2.0) Total Creatine Kinase 31 U/L (26-192) Creatine Kinase MB 0.8 ng/ml (0.5-3.6) Creatine Kinase MB Ratio 2.6 (0-3.0) Troponin I 0.082 ng/ml (0-0.045) Bedside Glucose 125 mg/dl (70-90) Assessment & Plan Assessment * 57 yo F w B-cell lymphoma on active chemotherapy admitted for generalized weakness * On cefepime, vancomycin empirically 2nd immunosuppression with fever, tachycardia - unknown source * SCr at/near baseline with eCrCL ~ 67 mL/min Vancomycin dosing * Goal vancomycin trough 15-20 mcg/mL * 19 mg/kg load already ordered/administered * Will continue with 14 mg/kg IV dosed at slightly longer than estimated vancomycin t1/2 of 11.5 hr * Trough prior to 4th overall dose Plan * Vancomycin 1500 mg IV q12h * Trough 11/03 @ 1330 Pharmacy will continue to follow and will adjust dose/frequency as necessary. Thank you
[2017-11-02] MEDS ORDERED: ONDANSETRON INJ 2 MG/ML 2 ML VIAL IV PRN (17:15)
[2017-11-02] MEDS ORDERED: PROMETHAZINE HCL 25 MG TAB PO PRN (17:15)
[2017-11-02 17:25] LABS: HEMATOCRIT 26.5 % (37-47); HEMOGLOBIN 8.4 g/dL (12.0-16.0); MEAN CELL VOLUME 90.4 fL (80-100); MEAN CORPUSCULAR HEMOGLOBIN 28.7 pg (25-34); MEAN CORPUSCULAR HGB CONC 31.7 g/dl (32-36); MEAN PLATELET VOLUME 9.2 fL (7.4-10.4); NUCLEATED RED BLOOD CELL ABS 0.31 K/uL (0-0); PLATELET COUNT 139 K/uL (130-400); RED CELL DISTRIBUTION WIDTH CV 17.4 % (11.5-14.5); RED CELL DISTRIBUTION WIDTH SD 57.6 fL (36.4-46.3); WHITE BLOOD COUNT 11.16 K/uL (4.8-10.8)
[2017-11-02] MEDS: TRAZODONE HCL 50 MG TAB PO SCH (20:54)
--- NOTE | 2017-11-02 21:05 | Medical Consult ---
Consultation Date of Consultation: Nov 02, 2017. Attending Physician: Giulia Acuna DO Reason for Consultation: B cell lymphoma on chemotherapy Patient admitted with bone pain after recent neulasta injection History of Present Illness 57 year old female with B cell lymphoma involving right supraclavicular region, favor Diffuse large B cell lymphoma, CAD, systolic CHF HTN currently on chemotherapy with R-CEOP regimen. She received cycle 2 of chemotherapy on 10/22/17 and she received neulasta for neutropenic fever prophylaxis. She is admitted with bone pain after neulasta injection. She states that she took antihistamines and also took opioids at home for generalized bone pain as she had similar bone pain after she received neulasta injection She states that neither tramadol nor hydrocodone-APAP provided relief so she came to ER. She states that pain was generalized in arms, hips and back. She feels some relief today with dilaudid She states that she had migraine headache earlier today Also has a mild nonproductive cough She had Tmax of 38 overnight She denies any chills She states occasionally has diaphroresis at home related to low glucose but otherwise no night sweats She denies any mouth pain or soreness Appetite is decreased She has nausea but feels it is controlled She denies any paresthesias or neck stiffness or chest pain or shortness or breath or diarrhea or constipation or melena or hematochezia Past Medical/Surgical History PMH: recently diagnosed DLBCL, Diabetes type 2, dyslipidemia, HTN, CAD, systolic CHF, migraine variant, Obstructive sleep apnea PSH: appendectomy, hysterectomy, spine surgery, cholecystectomy, removal of ovary, tonsillectomy, removal of wrist lesion Medical Problems: (1) Acute bronchitis Status: Acute (2) Acute chest pain Status: Acute (3) Anemia Status: Acute (4) Anemia Status: Acute (5) Elevated troponin Status: Acute (6) Enlarged lymph node Status: Acute (7) Hypomagnesemia Status: Acute (8) Hypoxia Status: Acute (9) Neck pain on right side Status: Acute (10) Pulmonary edema Status: Acute Family History Heart disease Social History Smoking Status: Former Smoker Alcohol Use: rare Drug Use: none Marital Status: Allergies Coded Allergies: Adhesives (Verified Allergy, Unknown, RASH, 11/01/17) Current Inpatient Medications Current Inpatient Medications Medications (Trade) Dose Ordered Sig/Chantale Route Start Time Stop Time Status Last Admin Dose Admin Hydromorphone HCl (Dilaudid Inj) 0.5 mg Q4H PRN IV 11/02/17 00:15 11/16/17 00:14 11/02/17 09:08 0.5 MG Senna/Docusate Sodium (Senokot S Tab) 1 tab QAM PO 11/02/17 09:00 12/02/17 08:59 11/02/17 08:04 1 TAB Amlodipine Besylate (Norvasc Tab) 2.5 mg DAILY PO 11/02/17 09:00 12/02/17 08:59 Future Hold 11/02/17 08:03 2.5 MG Aspirin (Ecotrin Tab) 81 mg DAILY PO 11/02/17 09:00 12/02/17 08:59 11/02/17 08:02 81 MG Carvedilol (Coreg Tab) 25 mg BID PO 11/02/17 09:00 12/02/17 08:59 Future Hold 11/02/17 08:05 25 MG Clopidogrel Bisulfate (plAVix TAB) 75 mg QAM PO 11/02/17 09:00 12/02/17 08:59 11/02/17 08:05 75 MG Gabapentin (Neurontin Cap) 300 mg TID PO 11/02/17 09:00 12/02/17 08:59 11/02/17 13:57 300 MG Acetaminophen/ Hydrocodone Bitart (Protem 5/325 Tab) 1 tab Q6 PRN PO 11/02/17 00:15 11/16/17 00:14 Lorazepam (Ativan Tab) 0.5 mg Q6H PRN PO 11/02/17 00:15 12/02/17 00:14 Trazodone HCl (Desyrel Tab) 50 mg HS PO 11/02/17 21:00 12/02/17 20:59 Venlafaxine HCl (effeXOR EXTENDED REL CAP) 37.5 mg DAILY PO 11/02/17 09:00 12/02/17 08:59 11/02/17 08:03 37.5 MG Venlafaxine HCl (effeXOR EXTENDED REL CAP) 150 mg DAILY PO 11/02/17 09:00 12/02/17 08:59 11/02/17 08:04 150 MG Buspirone HCl (Buspar Tab) 20 mg BID PO 11/02/17 09:00 12/02/17 08:59 11/02/17 08:04 20 MG Miscellaneous Information (Order Awaiting Action) 1 ea QS N/A 11/02/17 08:00 12/02/17 07:59 Enoxaparin Sodium (Lovenox Inj) 40 mg Q24H SC 11/02/17 09:00 12/02/17 08:59 11/02/17 08:02 40 MG Acetaminophen (Tylenol Tab) 650 mg Q4H PRN PO 11/02/17 00:15 12/02/17 00:14 11/02/17 12:00 650 MG Insulin Aspart (novoLOG ASPART) SLIDING SCALE If C... ACHS SC 11/02/17 07:00 12/02/17 06:59 11/02/17 16:53 3 UNITS Glucose (Glucose 40% Gel) 15-30 GRAMS 15 GRAMS... UD PRN PO 11/02/17 01:00 12/02/17 00:59 Glucose (Glucose Chew Tab) 4-8 Tablets 4 Tabl... UD PRN PO 11/02/17 01:00 12/02/17 00:59 Dextrose (Dextrose 50% 50ML Syringe) 25-50ML OF 50% DW IV FOR... UD PRN IV 11/02/17 01:00 12/02/17 00:59 Glucagon (Glucagon Inj) 1 mg UD PRN SQ 11/02/17 01:00 12/02/17 00:59 Piperacillin Sod/ Tazobactam Sod (Consult) 1 ea DAILY PRN N/A 11/02/17 01:35 12/02/17 01:34 Vancomycin HCl (Consult) 1 ea DAILY PRN N/A 11/02/17 01:36 12/02/17 01:35 Piperacillin Sod/ Tazobactam Sod 4.5 gm/Dextrose 120 ml @ 30 mls/hr Q8H IV 11/02/17 14:00 11/09/17 13:59 11/02/17 13:57 30 MLS/HR Vancomycin HCl 1500 mg/Sodium Chloride 530 ml @ 200 mls/hr Q12@0200,1400 IV 11/02/17 14:00 11/09/17 13:59 11/02/17 13:56 200 MLS/HR Levalbuterol (Xopenex 1.25MG/ 3ML Neb) 1.25 mg Q6R PRN INH 11/02/17 14:30 12/02/17 14:29 11/02/17 14:59 1.25 MG Ondansetron HCl (Zofran Inj) 4 mg Q6H PRN IV 11/02/17 17:15 12/02/17 17:14 11/02/17 17:17 4 MG Promethazine HCl (Phenergan Tab) 25 mg Q6H PRN PO 11/02/17 17:15 12/02/17 17:14 Review of Systems Constitutional: + fatigue, + problem reported (decreased appetite after chemo) , No fever, No chills, No sweats Eyes: No eye pain, No redness ENT: No unusual epistaxis, No nasal symptoms, No sore throat, No trouble swallowing Respiratory: + cough, No sputum, No wheezing, No shortness of breath Cardiovascular: No chest pain, No PND, No palpitations Abdomen: + nausea, No pain, No vomiting, No diarrhea, No constipation, No GI bleeding Musculoskeletal: + joint pain, No calf pain Genitourinary - Female: No dysuria, No urinary frequency Neurologic: No weakness, No numbness/tingling, No vertigo Endocrine: + fatigue, + problem reported (diabetes) Hematologic / Lymphatic: + problem reported (lymphoma), No abnormal bleeding/ bruising Integumentary: No rash, No itch Physical Exam Date Time Temp Pulse Resp B/P (MAP) Pulse Ox O2 Delivery O2 Flow Rate FiO2 11/02/17 19:29 37.4 109 18 106/69 (81) 92 Room Air 11/02/17 16:00 Room Air 11/02/17 15:05 36.9 92 18 91/57 (68) 98 Room Air 11/02/17 15:02 91 18 98 Room Air 11/02/17 12:00 Room Air 11/02/17 11:36 37.6 93 18 84/50 (61) 94 Nasal Cannula 2.0 11/02/17 10:12 102 98 11/02/17 08:05 104/68 (80) 11/02/17 08:00 Nasal Cannula 2.0 11/02/17 07:40 36.9 100 19 96/61 (73) 99 Nasal Cannula 2.0 11/02/17 05:51 37.8 11/02/17 04:00 97 Nasal Cannula 2.0 11/02/17 03:47 38.0 113 20 111/73 (86) 97 Nasal Cannula 11/02/17 00:35 37.7 112 18 117/75 99 Nasal Cannula 2.0 11/02/17 00:24 79 18 118/79 99 11/01/17 23:06 104 20 104/56 93 Room Air 11/01/17 22:32 105 11/01/17 22:19 94 Room Air 11/01/17 22:19 94 Room Air 11/01/17 21:38 37.1 106 20 112/64 94 Room Air General Appearance: WD/WN, no apparent distress Head: normocephalic, atraumatic Eyes: EOMI, sclerae normal ENT: pharynx normal Neck: supple, no adenopathy, no JVD Respiratory/Chest: lungs clear, normal breath sounds, no respiratory distress, no accessory muscle use Cardiovascular: regular rate, rhythm, no murmur, + tachycardia (mild) Abdomen/GI: normal bowel sounds, non tender, soft Back: + pertinent finding (well healed scar, no spinal tenderness) Extremities/Musculoskelatal: no calf tenderness, + pedal edema (trace bilateral ) Neurologic/Psych: alert, oriented x 3, + pertinent finding (grossly nonfocal exam) Skin: warm/dry Laboratory Results Last 24 Hours Test 11/01/17 22:15 11/02/17 04:00 11/02/17 06:20 11/02/17 06:43 White Blood Count 13.69 K/uL Red Blood Count 2.87 M/uL Hemoglobin 8.1 g/dL Hematocrit 25.4 % Mean Corpuscular Volume 88.5 fL Mean Corpuscular Hemoglobin 28.2 pg Mean Corpuscular Hemoglobin Concent 31.9 g/dl Platelet Count 166 K/uL Mean Platelet Volume 9.4 fL RDW Standard Deviation 54.8 fL RDW Coefficient of Variation 17.1 % Nucleated RBC Absolute Count (auto) 0.37 K/uL Neutrophils % (Manual) 83.5 % Lymphocytes % (Manual) 3.5 % Monocytes % (Manual) 4.3 % Metamyelocytes % 5.2 % Myelocytes % 3.5 % Nucleated Red Blood Cells % 2.7 % Neutrophils # (Manual) 11.43 K/uL Total Absolute Neutrophils 11.43 K/uL Lymphocytes # (Manual) 0.48 K/uL Total Absolute Lymphocytes 0.48 K/uL Monocytes # (Manual) 0.59 K/uL Metamyelocytes # 0.71 K/uL Myelocytes # 0.48 K/uL Toxic Granulation 2+ Toxic Vacuolation 1+ Dohle Bodies 1+ Polychromasia 1+ Sodium Level 135 mmol/L Potassium Level 3.7 mmol/L Chloride Level 99 mmol/L Carbon Dioxide Level 27 mmol/L Anion Gap 9.0 mmol/L Blood Urea Nitrogen 15 mg/dl Creatinine 1.07 mg/dl Est Creatinine Clear Calc Drug Dose 67.2 ml/min Estimated GFR () 67.2 Estimated GFR (Non- 58.0 BUN/Creatinine Ratio 13.6 Random Glucose 196 mg/dl Calcium Level 8.0 mg/dl Magnesium Level 1.5 mg/dl Total Bilirubin 0.3 mg/dl Direct Bilirubin < 0.1 mg/dl Aspartate Amino Transf (AST/SGOT) 25 U/L Alanine Aminotransferase (ALT/SGPT) 22 U/L Alkaline Phosphatase 85 U/L Troponin I 0.074 ng/ml 0.072 ng/ml Total Protein 5.8 gm/dl Albumin 2.6 gm/dl Prothrombin Time 11.4 SECONDS Prothromb Time International Ratio 1.1 Total Creatine Kinase 29 U/L Creatine Kinase MB 0.7 ng/ml Creatine Kinase MB Ratio 2.4 Urine Color DK YELLOW Urine Appearance TURBID Urine pH 5.0 Urine Specific [place] 1.035 Urine Protein 4+ Urine Glucose (UA) TRACE Urine Ketones NEG Urine Occult Blood TRACE Urine Nitrite NEG Urine Bilirubin NEG Urine Urobilinogen NEG Urine Leukocyte Esterase NEG Urine WBC (Auto) 5-10 /hpf Urine RBC (Auto) 0-4 /hpf Urine Hyaline Casts (Auto) >30 /lpf Urine Epithelial Cells (Auto) >30 /lpf Urine Bacteria (Auto) NEG Urine Renal Epithelial Cells /lpf Urine Crystals AMM BIURATE Bedside Glucose 126 mg/dl Test 11/02/17 07:19 11/02/17 10:27 11/02/17 11:16 11/02/17 16:01 Lactic Acid Level 1.1 mmol/L Total Creatine Kinase 31 U/L Creatine Kinase MB 0.8 ng/ml Creatine Kinase MB Ratio 2.6 Troponin I 0.082 ng/ml Bedside Glucose 125 mg/dl 188 mg/dl Test 11/02/17 17:15 11/02/17 20:14 White Blood Count 11.16 K/uL Red Blood Count 2.93 M/uL Hemoglobin 8.4 g/dL Hematocrit 26.5 % Mean Corpuscular Volume 90.4 fL Mean Corpuscular Hemoglobin 28.7 pg Mean Corpuscular Hemoglobin Concent 31.7 g/dl Platelet Count 139 K/uL Mean Platelet Volume 9.2 fL RDW Standard Deviation 57.6 fL RDW Coefficient of Variation 17.4 % Nucleated RBC Absolute Count (auto) 0.31 K/uL Neutrophils % (Manual) 86.5 % Lymphocytes % (Manual) 3.6 % Monocytes % (Manual) 4.5 % Basophils % (Manual) 0.9 % Metamyelocytes % 0.9 % Myelocytes % 3.6 % Nucleated Red Blood Cells % 2.7 % Neutrophils # (Manual) 9.65 K/uL Total Absolute Neutrophils 9.65 K/uL Lymphocytes # (Manual) 0.40 K/uL Total Absolute Lymphocytes 0.40 K/uL Monocytes # (Manual) 0.50 K/uL Basophils # (Manual) 0.10 K/uL Metamyelocytes # 0.10 K/uL Myelocytes # 0.40 K/uL Toxic Granulation 2+ Toxic Vacuolation 1+ Dohle Bodies 1+ Polychromasia 1+ Bedside Glucose 209 mg/dl CXR: No new infiltrate, decrease in left lung and right basilar opacities Assessment & Plan 57 year old female with B cell lymphoma, favor Diffuse large B cell lymphoma, on chemotherapy with R-CEOP (rituxan, cytoxan, etoposide, vincristine and prednisone) regimen, with neulasta support. She is admitted with severe bone pain after neulasta -agree with opioids as needed for management of her severe bone pain from neulasta. She reports improvement of her pain with dilaudid. Expect her pain to improve -Discussed with her that she can take zyrtec 5 to 10mg once daily starting 1 to 2 days before neulasta injection but she states that she has already taken antihistamine and did not feel that this helped at all with her pain from neulasta this cycle. Due to cardiac history would avoid NSAIDs. creatinine is improved here as well but was elevated outpatient on 10/22/17 -fever is resolved. She is on antibiotics pending blood culture results She has a cough but otherwise no obvious sign of infection and mild leukocytosis can also be due to recent neulasta injection and her CXR was improved Anemia: due to chemotherapy. Recommend transfuse 1 unit of irradiated PRBC if hemoglobin less than 8g/dL or if symptomatic Follow up with Dr Dobbs on discharge Thank you for allowing us to participate in the care of this patient
[2017-11-03] VITALS (15 sets, daily range): BP systolic 92–114; BP diastolic 62–74; PULSE 79–98; TEMP 36.4–37.1; O2SAT 91–97
[2017-11-03 00:57] LABS: CALCIUM 7.5 mg/dl (8.5-10.1); CREATININE 3.39 mg/dl (0.60-1.20); POTASSIUM 3.9 mmol/L (3.5-5.1)
[2017-11-03] MEDS: VANCOMYCIN INJ 1,500 MG in SODIUM CHLORIDE 0.9% 500ML 500 ML IV SCH (01:51)
[2017-11-03] MEDS ORDERED: SODIUM CHLORIDE 0.9% 1000ML 1,000 ML IV SCH (02:00)
[2017-11-03] MEDS ORDERED: HYDROCODONE/ACETAMOPHEN 5/325MG TAB PO PRN (02:15)
[2017-11-03] MEDS ORDERED: HYDROmorphone INJ 0.5 MG/0.5 ML SYR IV PRN (02:15)
[2017-11-03 05:15] LABS: HEMATOCRIT 22.4 % (37-47); HEMOGLOBIN 7.1 g/dL (12.0-16.0); MEAN CELL VOLUME 89.6 fL (80-100); MEAN CORPUSCULAR HEMOGLOBIN 28.4 pg (25-34); MEAN CORPUSCULAR HGB CONC 31.7 g/dl (32-36); MEAN PLATELET VOLUME 9.7 fL (7.4-10.4); NUCLEATED RED BLOOD CELL ABS 0.11 K/uL (0-0); PLATELET COUNT 130 K/uL (130-400); RED CELL DISTRIBUTION WIDTH CV 17.3 % (11.5-14.5); WHITE BLOOD COUNT 8.82 K/uL (4.8-10.8)
[2017-11-03 05:37] LABS: CALCIUM 7.5 mg/dl (8.5-10.1); CREATININE 3.69 mg/dl (0.60-1.20); POTASSIUM 3.6 mmol/L (3.5-5.1)
[2017-11-03 05:39] LABS: BASO % 0.3 %; BASO ABS # 0.03 K/uL (0-0.2); EOS % 0.3 %; EOS ABS # 0.03 K/uL (0-0.5); LYMPH % 5.4 %; LYMPH ABS # 0.48 K/uL (1.2-3.4); MONO % 5.3 %; MONO ABS # 0.47 K/uL (0.11-0.59); NEUT % 79.6 %; NEUT ABS # 7.01 K/uL (1.4-6.5)
[2017-11-03] MEDS: PIPERACILL/TAZOBAC IV 4.5 GM in DEXTROSE 5% 100ML IV SCH ×2 (06:12→17:30)
[2017-11-03] MEDS ORDERED: D5W AND NSS 1,000 ML IV SCH (07:00)
[2017-11-03] MEDS ORDERED: PHARMACY GLYCEMIC MGMT CONSULT PRN (07:20)
[2017-11-03] MEDS: ASPIRIN 81 MG ECTAB PO SCH (07:50)
[2017-11-03] MEDS: TRICOR~ORDER AWAITING ACTION SCH ×2 (07:50→16:00)
[2017-11-03] MEDS: DOCUSATE SODIUM/SENNA 50/8.6MG TAB PO SCH (07:51)
[2017-11-03] MEDS: CLOPIDOGREL BISULFATE 75 MG TAB PO SCH (07:52)
[2017-11-03] MEDS: GABAPENTIN 300 MG CAP PO SCH ×3 (07:52→20:40)
[2017-11-03] MEDS: VENLAFAXINE HCL XR 37.5 MG CAPXR PO SCH (07:53)
[2017-11-03] MEDS: VENLAFAXINE HCL XR 150 MG CAPXR PO SCH (07:53)
[2017-11-03] MEDS: INSULIN ASPART 100 UNITS/ML 3 ML PEN SC SCH ×4 (07:55→20:35)
[2017-11-03] MEDS: LEVALBUTEROL 1.25MG/3ML NEB INH PRN (08:17)
[2017-11-03 10:07] LABS: PHOSPHORUS 5.4 mg/dl (2.5-4.9); URIC ACID 6.9 mg/dl (2.6-7.2)
--- NOTE | 2017-11-03 10:57 | DIAGNOSTIC IMAGING REPORT ---
ULTRASOUND KIDNEYS AND BLADDER CLINICAL HISTORY: Acute renal insufficiency. Anuria. COMPARISON STUDY: Renal ultrasound dated 09/12/2017. TECHNIQUE: Real-time, grayscale, and color flow sonography of the kidneys and bladder is performed. Images are reviewed in the transverse and longitudinal planes. FINDINGS: Kidneys: The kidneys are normal in size and echotexture. The right kidney measures 14.0 x 5.1 x 4.9 cm and the left kidney measures 12.8 x 5.1 x 5.2 cm. There is no hydronephrosis. No shadowing renal calculi are identified. There is no sonographic evidence of contour deforming renal mass lesion. No perinephric fluid is identified. Bladder: The bladder is decompressed and could not be assessed. IMPRESSION: 1. The kidneys are normal in size and without hydronephrosis. 2. The bladder was decompressed and could not be assessed. Electronically signed by: Darren Oleary M.D. 11/03/2017 10:56 AM Dictated Date/Time: 11/03/2017 10:55 AM
--- NOTE | 2017-11-03 11:10 | NEPHROLOGY CONSULTATION ---
DATE OF CONSULTATION: 11/03/2017 ATTENDING OF RECORD: Giulia Acuna DO REASON FOR CONSULTATION: MARIKA. HISTORY OF PRESENT ILLNESS: This is a 57-year-old female with history of large B cell lymphoma diagnosed in April 2017. She had just finished her third round of chemo on October 26 and on the last day of chemo, gets Neulasta injection and normally gets significant diffuse body aches and pains with the Neulasta injection. She also takes Zofran q. 4 hours to help control her nausea, has had decreased appetite. The patient came on the with a significant acute kidney injury with a baseline creatinine of 1 and now is up to 3.69. The patient did not receive any contrast during this hospitalization. Blood pressures have remained relatively stable in the low 100s to high 90s. Currently, on D5 normal saline at 100 mL an hour. The patient has had minimal urination and is positive 4 liters. Denies any NSAIDs at home, does have history of diabetes and hypertension as well as heart disease with a history of a stent placed. REVIEW OF SYSTEMS: No fevers or chills. No weight loss. Positive anorexia. Positive nausea. Positive diarrhea. Positive diffuse muscle aches and pains. Positive decreased urination. No chest pain, no shortness of breath. All other review of systems otherwise negative. PAST MEDICAL HISTORY: Large B cell lymphoma, hypertension, diabetes, heart failure, obstructive sleep apnea, history of [place] x2. PAST SURGICAL HISTORY: Cholecystectomy, tonsillectomy, hysterectomy, appendectomy. SOCIAL HISTORY: No smoker. No alcohol, no drugs. Lives at home with family. FAMILY HISTORY: No renal disease in family CURRENT MEDICATIONS: D5 normal saline at 100 mL an hour, trazodone 50 mg at night, Zosyn 4.5 grams IV q. 8, aspirin 81 mg a day, Plavix 75 mg a day, Neurontin 300 mg p.o. t.i.d., Effexor 187.5 mg daily, BuSpar 20 mg p.o. b.i.d. The patient did receive 1 dose of 30 mg IV of Toradol on admission. The patient also did get 1 dose of IV vancomycin as well. PHYSICAL EXAMINATION: VITAL SIGNS: Temperature 36.5, pulse 86, respiratory rate 18, blood pressure 93/62, satting 96% on room air. GENERAL: Awake, alert, oriented x3. EYES: No scleral icterus. HEENT: Mucous membranes are moist. NECK: Supple. PULMONARY: Clear to auscultation. CARDIAC: Positive ectopy, regular. ABDOMEN: Bowel sounds positive, soft, nontender. EXTREMITIES: Mild edema. NEUROLOGICALLY: Nonfocal. DERMATOLOGIC: No rash or ulcers noted. LABORATORY DATA: Sodium was 135, potassium 3.6, chloride is 103, bicarb is 26, BUN is 29, creatinine is 3.69, glucose is 125, calcium 7.5, mag is 2.1, albumin of 2.6. INR is 1.1. UA showed a specific gravity of 1.035, pH of 5, 4+ protein, trace blood, 5-10 WBCs, 0-4 RBCs. Blood cultures negative x2. Chest x-ray showed cardiomegaly with decreased pulmonary edema, resolved pleural effusions, no new infiltrates. IMPRESSION AND PLAN: Acute kidney injury with a creatinine of 1 on admission and the patient was volume depleted with a urine specific gravity of greater than 1.035, who had nausea and decreased appetite for a week prior to coming in, who developed significant acute tubular necrosis, oliguric in the setting of 1 dose of vancomycin as well as 1 dose of Toradol and perhaps had significant volume depletion with non-steroidal anti-inflammatory drugs, significant enough to cause acute tubular necrosis. Another thought could be tumor lysis, although this is the patient's third round of chemo. I would expect to see tumor lysis after the first round of chemo. However, to be thorough, we will check a uric acid level and phosphorus level since the calcium levels are trending down, although corrects to within normal range when accounting for albumin. We would like to check a renal ultrasound to be thorough and check a random urine sodium as well if able to urinate. Out of respect to the patient's wishes, we will hold off on placing a [place] catheter for now and do a bladder scan to see if there is any urine in the bladder to consider urinary retention as a possible cause. For now, we will continue to hydrate, looking for signs of volume overload in this patient with congestive heart failure and history of ectopy, did have a run of V-tach last night, which is concerning. We will try to optimize electrolytes as best as possible. Magnesium levels are good at 2.1, potassium satisfactory at 3.6. I am hesitant to give any more potassium in the setting of worsening kidney function, may end up needing dialysis during this admission. For now, volume status is appropriate. Electrolytes are stable. We will continue to hydrate. I feel current diagnosis now is acute tubular necrosis in the setting of non-steroidal anti-inflammatory drugs with significant volume depletion plus or minus vancomycin toxicity. Vancomycin has been on hold, non-steroidal anti-inflammatory drugs stopped; hydrate the patient, checking a renal ultrasound and also ruling out tumor lysis to be thorough. I appreciate consultation. YUMIKO
[2017-11-03] MEDS: MUPIROCIN 2% OINT 22 GM TUBE EXT SCH ×2 (11:15→20:41)
--- NOTE | 2017-11-03 11:44 | Hematology/Oncology Prog Note ---
Hematology/Onc Progress Note Date of Service Nov 03, 2017. Subjective I saw her at bedside in the morning, she is sitting comfortably in the bed but feeling more tired, has increasing diarrhea, denies any increasing abdominal pain, no nausea or vomiting, significant decrease in the urine output noted, no hematuria, no bleeding from any sites, she had increasing bone pain which has improved, no fever, no blood in the stool. I reviewed her blood workup done today, hemoglobin level dropped down to around 7.1 g/dL, WBC is around 8800, Platelet count of of 130,000. - Serum creatinine level has increased to around 3.6 mg/dL, on admission it was 1.0 on 11/01/2017). - Normal liver function test. - Calcium level 7,magnesium level I.5 on admission. Now magnesium level has improved to around 2.1. - Blood culture --> Negative so far. Seen by a precision dancer Dr. Ellis, uric acid --> 6.9 (11/03/2017). She did receive Toradol in the ER for the bone pain, her blood pressure was also on the lower side when she came in, she received IV hydration. She also had increasing diarrhea for the last few days which may be the cause of dehydration in her case. Will check stool for culture and C. difficile. She will receive 1 unit of PRBC today (irradiated blood products). Will follow-up. Ranjan Dobbs MD Hem/Onc Vital Signs Vital Signs Past 12 Hours Date Time Temp Pulse Resp B/P (MAP) Pulse Ox O2 Delivery O2 Flow Rate FiO2 11/03/17 11:25 36.6 85 100/63 95 11/03/17 11:08 37.0 88 17 107/68 97 11/03/17 08:18 86 18 96 Room Air 11/03/17 08:00 96 Room Air 11/03/17 07:38 36.5 87 18 93/62 (72) 96 Room Air 11/03/17 04:00 Room Air 11/03/17 02:54 36.4 79 18 104/69 (81) 91 Room Air 11/03/17 00:01 Room Air
--- NOTE | 2017-11-03 12:24 | Progress Note ---
Medicine Progress Note Date & Time of Visit: Nov 03, 2017 at 12:14. 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 She is feeling much better today and has been afebrile without chills. She does admit to a non-productive cough and has been getting fluids and is getting blood right now. She reports that nausea is controlled and she is eating some food. No other issues at this time. Objective Last 8 Hrs Date Time Temp Pulse Resp B/P (MAP) Pulse Ox O2 Delivery O2 Flow Rate FiO2 11/03/17 12:00 95 Room Air 11/03/17 11:40 37.0 94 18 105/62 96 11/03/17 11:25 36.6 85 100/63 95 11/03/17 11:08 37.0 88 17 107/68 97 11/03/17 08:18 86 18 96 Room Air 11/03/17 08:00 96 Room Air 11/03/17 07:38 36.5 87 18 93/62 (72) 96 Room Air Physical Exam: GEN: WNWD, NAD, alert and appropriate HEENT: NC/AT, normal sclerae, MMM CARDIO: reg rate, S1/2 heard without m/g/r CHEST: L anterior chest wall port intact and clean, dry and intact. Blood infusion. LUNGS: Rales all throughout lung solo currently. ABD: soft, non-tender, non-distended, no rebound or guarding, +BS EXTREMITY: RP and DP palpable 2+ bilat, no LE swelling or edema, extremities are warm and well-perfused NEURO: CN 2-12 grossly intact, no gross focal deficits. MUSC: moves all extremities equally. SKIN: warm and dry Laboratory Results: 11/03/17 04:44 Red Blood Count 2.50, Mean Corpuscular Volume 89.6, Mean Corpuscular Hemoglobin 28.4, Mean Corpuscular Hemoglobin Concent 31.7, Mean Platelet Volume 9.7, Neutrophils (%) (Auto) 79.6, Lymphocytes (%) (Auto) 5.4, Monocytes (%) (Auto) 5.3, Eosinophils (%) (Auto) 0.3, Basophils (%) (Auto) 0.3, Neutrophils # (Auto) 7.01, Lymphocytes # (Auto) 0.48, Monocytes # (Auto) 0.47, Eosinophils # (Auto) 0.03, Basophils # (Auto) 0.03 11/03/17 04:44 Test 11/01/17 22:15 11/02/17 04:00 11/02/17 06:20 11/02/17 07:19 Total Bilirubin 0.3 mg/dl (0.2-1) Direct Bilirubin < 0.1 mg/dl (0-0.2) Aspartate Amino Transf (AST/SGOT) 25 U/L (15-37) Alanine Aminotransferase (ALT/SGPT) 22 U/L (12-78) Alkaline Phosphatase 85 U/L (45-117) Total Protein 5.8 gm/dl (6.4-8.2) Albumin 2.6 gm/dl (3.4-5.0) Prothrombin Time 11.4 SECONDS (9.0-12.0) Prothromb Time International Ratio 1.1 (0.9-1.1) Urine Color DK YELLOW Urine Appearance TURBID (CLEAR) Urine pH 5.0 (4.5-7.5) Urine Specific Wendell 1.035 (1.000-1.030) Urine Protein 4+ (NEG) Urine Glucose (UA) TRACE (NEG) Urine Ketones NEG (NEG) Urine Occult Blood TRACE (NEG) Urine Nitrite NEG (NEG) Urine Bilirubin NEG (NEG) Urine Urobilinogen NEG (NEG) Urine Leukocyte Esterase NEG (NEG) Urine WBC (Auto) 5-10 /hpf (0-5) Urine RBC (Auto) 0-4 /hpf (0-4) Urine Hyaline Casts (Auto) >30 /lpf (0-5) Urine Epithelial Cells (Auto) >30 /lpf (0-5) Urine Bacteria (Auto) NEG (NEG) Urine Renal Epithelial Cells /lpf (0-5) Urine Crystals AMM BIURATE (NONE PRSENT) Lactic Acid Level 1.1 mmol/L (0.4-2.0) Test 11/02/17 10:27 11/02/17 17:15 11/03/17 04:44 11/03/17 07:12 Total Creatine Kinase 31 U/L (26-192) Creatine Kinase MB 0.8 ng/ml (0.5-3.6) Creatine Kinase MB Ratio 2.6 (0-3.0) Troponin I 0.082 ng/ml (0-0.045) Neutrophils % (Manual) 86.5 % Lymphocytes % (Manual) 3.6 % Monocytes % (Manual) 4.5 % Basophils % (Manual) 0.9 % Metamyelocytes % 0.9 % Myelocytes % 3.6 % Neutrophils # (Manual) 9.65 K/uL (1.4-6.5) Total Absolute Neutrophils 9.65 K/uL (1.4-6.5) Lymphocytes # (Manual) 0.40 K/uL (1.2-3.4) Total Absolute Lymphocytes 0.40 K/uL (1.2-3.4) Monocytes # (Manual) 0.50 K/uL (0.11-0.59) Basophils # (Manual) 0.10 K/uL (0-0.2) Metamyelocytes # 0.10 K/uL (0-0) Myelocytes # 0.40 K/uL (0-0) Toxic Vacuolation 1+ Dohle Bodies 1+ Polychromasia 1+ White Blood Count 8.82 K/uL (4.8-10.8) Red Blood Count 2.50 M/uL (4.2-5.4) Hemoglobin 7.1 g/dL (12.0-16.0) Hematocrit 22.4 % (37-47) Mean Corpuscular Volume 89.6 fL (80-100) Mean Corpuscular Hemoglobin 28.4 pg (25-34) Mean Corpuscular Hemoglobin Concent 31.7 g/dl (32-36) Platelet Count 130 K/uL (130-400) Mean Platelet Volume 9.7 fL (7.4-10.4) Neutrophils (%) (Auto) 79.6 % Lymphocytes (%) (Auto) 5.4 % Monocytes (%) (Auto) 5.3 % Eosinophils (%) (Auto) 0.3 % Basophils (%) (Auto) 0.3 % Neutrophils # (Auto) 7.01 K/uL (1.4-6.5) Lymphocytes # (Auto) 0.48 K/uL (1.2-3.4) Monocytes # (Auto) 0.47 K/uL (0.11-0.59) Eosinophils # (Auto) 0.03 K/uL (0-0.5) Basophils # (Auto) 0.03 K/uL (0-0.2) RDW Standard Deviation 57.0 fL (36.4-46.3) RDW Coefficient of Variation 17.3 % (11.5-14.5) Immature Granulocyte % (Auto) 9.1 % Immature Granulocyte # (Auto) 0.80 K/uL (0.00-0.02) Nucleated RBC Absolute Count (auto) 0.11 K/uL (0-0) Nucleated Red Blood Cells % 1.3 % Toxic Granulation 2+ Anion Gap 6.0 mmol/L (3-11) Est Creatinine Clear Calc Drug Dose 20.3 ml/min Estimated GFR () 15.0 Estimated GFR (Non- 13.0 BUN/Creatinine Ratio 7.9 (10-20) Calcium Level 7.5 mg/dl (8.5-10.1) Magnesium Level 2.1 mg/dl (1.8-2.4) Uric Acid 6.9 mg/dl (2.6-7.2) Phosphorus Level 5.4 mg/dl (2.5-4.9) Test 11/03/17 10:28 11/03/17 11:21 Urine Random Creatinine 162.0 mg/dl Urine Random Sodium 30 mEq/L Bedside Glucose 162 mg/dl (70-90) Date/Time Source Procedure Growth Status 11/02/17 01:49 Blood Blood Culture - Preliminary NO GROWTH TO DATE. Resulted 11/03/17 02:10 Nasal MRSA DNA Surveillance Screen - Final Specimen Positive for MRSA by DNA Probe Complete Last 24 Hours Test 11/02/17 16:01 11/02/17 17:15 11/02/17 20:14 11/03/17 00:29 Bedside Glucose 188 mg/dl 209 mg/dl White Blood Count 11.16 K/uL Red Blood Count 2.93 M/uL Hemoglobin 8.4 g/dL Hematocrit 26.5 % Mean Corpuscular Volume 90.4 fL Mean Corpuscular Hemoglobin 28.7 pg Mean Corpuscular Hemoglobin Concent 31.7 g/dl Platelet Count 139 K/uL Mean Platelet Volume 9.2 fL RDW Standard Deviation 57.6 fL RDW Coefficient of Variation 17.4 % Nucleated RBC Absolute Count (auto) 0.31 K/uL Neutrophils % (Manual) 86.5 % Lymphocytes % (Manual) 3.6 % Monocytes % (Manual) 4.5 % Basophils % (Manual) 0.9 % Metamyelocytes % 0.9 % Myelocytes % 3.6 % Nucleated Red Blood Cells % 2.7 % Neutrophils # (Manual) 9.65 K/uL Total Absolute Neutrophils 9.65 K/uL Lymphocytes # (Manual) 0.40 K/uL Total Absolute Lymphocytes 0.40 K/uL Monocytes # (Manual) 0.50 K/uL Basophils # (Manual) 0.10 K/uL Metamyelocytes # 0.10 K/uL Myelocytes # 0.40 K/uL Toxic Granulation 2+ Toxic Vacuolation 1+ Dohle Bodies 1+ Polychromasia 1+ Sodium Level 135 mmol/L Potassium Level 3.9 mmol/L Chloride Level 101 mmol/L Carbon Dioxide Level 27 mmol/L Anion Gap 7.0 mmol/L Blood Urea Nitrogen 29 mg/dl Creatinine 3.39 mg/dl Est Creatinine Clear Calc Drug Dose 22.1 ml/min Estimated GFR () 16.7 Estimated GFR (Non- 14.4 BUN/Creatinine Ratio 8.5 Random Glucose 154 mg/dl Calcium Level 7.5 mg/dl Magnesium Level 2.0 mg/dl Test 11/03/17 04:44 11/03/17 06:10 11/03/17 06:31 11/03/17 06:58 White Blood Count 8.82 K/uL Red Blood Count 2.50 M/uL Hemoglobin 7.1 g/dL Hematocrit 22.4 % Mean Corpuscular Volume 89.6 fL Mean Corpuscular Hemoglobin 28.4 pg Mean Corpuscular Hemoglobin Concent 31.7 g/dl Platelet Count 130 K/uL Mean Platelet Volume 9.7 fL Neutrophils (%) (Auto) 79.6 % Lymphocytes (%) (Auto) 5.4 % Monocytes (%) (Auto) 5.3 % Eosinophils (%) (Auto) 0.3 % Basophils (%) (Auto) 0.3 % Neutrophils # (Auto) 7.01 K/uL Lymphocytes # (Auto) 0.48 K/uL Monocytes # (Auto) 0.47 K/uL Eosinophils # (Auto) 0.03 K/uL Basophils # (Auto) 0.03 K/uL RDW Standard Deviation 57.0 fL RDW Coefficient of Variation 17.3 % Immature Granulocyte % (Auto) 9.1 % Immature Granulocyte # (Auto) 0.80 K/uL Nucleated RBC Absolute Count (auto) 0.11 K/uL Nucleated Red Blood Cells % 1.3 % Toxic Granulation 2+ Sodium Level 135 mmol/L Potassium Level 3.6 mmol/L Chloride Level 103 mmol/L Carbon Dioxide Level 26 mmol/L Anion Gap 6.0 mmol/L Blood Urea Nitrogen 29 mg/dl Creatinine 3.69 mg/dl Est Creatinine Clear Calc Drug Dose 20.3 ml/min Estimated GFR () 15.0 Estimated GFR (Non- 13.0 BUN/Creatinine Ratio 7.9 Random Glucose 73 mg/dl Calcium Level 7.5 mg/dl Magnesium Level 2.1 mg/dl Bedside Glucose 68 mg/dl 57 mg/dl 125 mg/dl Test 11/03/17 07:12 11/03/17 10:28 11/03/17 11:21 Uric Acid 6.9 mg/dl Phosphorus Level 5.4 mg/dl Urine Random Creatinine 162.0 mg/dl Urine Random Sodium 30 mEq/L Bedside Glucose 162 mg/dl Date/Time Source Procedure Growth Status 11/03/17 02:10 Nasal MRSA DNA Surveillance Screen - Final Specimen Positive for MRSA by DNA Probe Complete Assessment & Plan 57 year old female with history of B cell Lymphoma on chemotherapy, CAD s/p Stent, CHF Systolic EF 45%, DM 2, HTN, and other problems noted below presenting with severe generalized pain after Neulasta on 10/31. She is feeling much better today and has been afebrile without chills. She does admit to a non-productive cough and has been getting fluids and is getting blood right now. She reports that nausea is controlled and she is eating some food. No other issues at this time. 1. Generalized pain 2/2 Neulasta and recent chemo-we discussed that she prefers to try PO dilaudid and this was ordered. 2. MARIKA-Consulted Nephrology who feels this may be prerenal. However, I have concerns of volume overload with her new rales and cough. CXR ordered and will consider Lasix IV. IVF were also stopped. Will discuss with Nephro. 3. Mild fever and tachycardia on admission with mild leukocytosis-resolved. Vanc was stopped out of concerns for poss nephrotoxicity. Will cont Zosyn for another day and consider stopping in am if no further fever and cultures are clear. No clear focus of infection at this point, empirically covering with Vanc and Zosyn while awaiting cultures in immunocompromised patient. 4. Troponin elevation with 20 beast NSVT overnight-pt denies any chest pain or other cardiac symptoms at this time. She also had a mild troponin elevation during her last admission. Nonischemic EKG and no escalation of troponin with serial blood draws. May be related to tachycardia in setting of known CAD vs chemo. Will check echo to ensure no wall motion abnormalities which is pending. Will restart her Coreg now. 5. Anemia-somewhat expected on chemotherapy. Denies acute blood loss. One unit of blood transfusing now. Post-transfusion H/H. 6. DMII-pharmacy consult, ISS with carb coverage. Apprec assistance with management. D5 fluids were stopped from overnight after one hypoglycemia episode. FSG have improved and patient is eating. 6. B cell lymphoma-per Dr. Dobbs is oncologist DVT PROPHYLAXIS Lovenox FULL CODE PER PATIENT DISPOSITION -PT/OT cleared to return home when medically stable and pain well controlled. ff up with PCP Dr. Murray, Oncologist Dr. Sallie Acuna DO [facility] Hospitalist Consultants: Oncology-[facility] Nephrology-[facility] Current Inpatient Medications: Current Inpatient Medications Medications (Trade) Dose Ordered Sig/Chantale Route Start Time Stop Time Status Last Admin Dose Admin Senna/Docusate Sodium (Senokot S Tab) 1 tab QAM PO 11/02/17 09:00 12/02/17 08:59 11/02/17 08:04 1 TAB Amlodipine Besylate (Norvasc Tab) 2.5 mg DAILY PO 11/02/17 09:00 12/02/17 08:59 Future Hold 11/02/17 08:03 2.5 MG Aspirin (Ecotrin Tab) 81 mg DAILY PO 11/02/17 09:00 12/02/17 08:59 11/03/17 07:50 81 MG Carvedilol (Coreg Tab) 25 mg BID PO 11/02/17 09:00 12/02/17 08:59 Future Hold 11/02/17 08:05 25 MG Clopidogrel Bisulfate (plAVix TAB) 75 mg QAM PO 11/02/17 09:00 12/02/17 08:59 11/03/17 07:52 75 MG Gabapentin (Neurontin Cap) 300 mg TID PO 11/02/17 09:00 12/02/17 08:59 11/03/17 07:52 300 MG Lorazepam (Ativan Tab) 0.5 mg Q6H PRN PO 11/02/17 00:15 12/02/17 00:14 Trazodone HCl (Desyrel Tab) 50 mg HS PO 11/02/17 21:00 12/02/17 20:59 11/02/17 20:54 50 MG Venlafaxine HCl (effeXOR EXTENDED REL CAP) 37.5 mg DAILY PO 11/02/17 09:00 12/02/17 08:59 11/03/17 07:53 37.5 MG Venlafaxine HCl (effeXOR EXTENDED REL CAP) 150 mg DAILY PO 11/02/17 09:00 12/02/17 08:59 11/03/17 07:53 150 MG Buspirone HCl (Buspar Tab) 20 mg BID PO 11/02/17 09:00 12/02/17 08:59 11/03/17 07:51 20 MG Miscellaneous Information (Order Awaiting Action) 1 ea QS N/A 11/02/17 08:00 12/02/17 07:59 Acetaminophen (Tylenol Tab) 650 mg Q4H PRN PO 11/02/17 00:15 12/02/17 00:14 11/02/17 12:00 650 MG Insulin Aspart (novoLOG ASPART) SLIDING SCALE If C... ACHS SC 11/02/17 07:00 12/02/17 06:59 11/02/17 20:58 1 UNITS Glucose (Glucose 40% Gel) 15-30 GRAMS 15 GRAMS... UD PRN PO 11/02/17 01:00 12/02/17 00:59 Glucose (Glucose Chew Tab) 4-8 Tablets 4 Tabl... UD PRN PO 11/02/17 01:00 12/02/17 00:59 11/03/17 06:35 4 TABS Dextrose (Dextrose 50% 50ML Syringe) 25-50ML OF 50% DW IV FOR... UD PRN IV 11/02/17 01:00 12/02/17 00:59 Glucagon (Glucagon Inj) 1 mg UD PRN SQ 11/02/17 01:00 12/02/17 00:59 Piperacillin Sod/ Tazobactam Sod (Consult) 1 ea DAILY PRN N/A 11/02/17 01:35 12/02/17 01:34 Piperacillin Sod/ Tazobactam Sod 4.5 gm/Dextrose 120 ml @ 30 mls/hr Q8H IV 11/02/17 14:00 11/09/17 13:59 11/03/17 06:12 30 MLS/HR Levalbuterol (Xopenex 1.25MG/ 3ML Neb) 1.25 mg Q6R PRN INH 11/02/17 14:30 12/02/17 14:29 11/03/17 08:17 1.25 MG Ondansetron HCl (Zofran Inj) 4 mg Q6H PRN IV 11/02/17 17:15 12/02/17 17:14 11/02/17 17:17 4 MG Promethazine HCl (Phenergan Tab) 25 mg Q6H PRN PO 11/02/17 17:15 12/02/17 17:14 Acetaminophen/ Hydrocodone Bitart (Parkman 5/325 Tab) 1 tab Q8H PRN PO 11/03/17 02:15 11/16/17 00:14 Hydromorphone HCl (Dilaudid Inj) 0.5 mg Q6H PRN IV 11/03/17 02:15 11/16/17 00:14 11/03/17 09:58 0.5 MG Miscellaneous Information (Consult Glycemic Management Pharmacy) 1 ea UD PRN N/A 11/03/17 07:20 12/03/17 07:19 Dextrose/Sodium Chloride 1,000 ml @ 100 mls/hr Q10H IV 11/03/17 07:00 12/03/17 06:59 11/03/17 07:49 100 MLS/HR Mupirocin (Bactroban 2% Oint) 1 appln BID EXT 11/03/17 09:00 11/08/17 08:59 11/03/17 11:15 1 APPLN Insulin Glargine (Lantus Solostar Pen) SEE PROTOCOL TEXT HS SC 11/03/17 21:00 12/03/17 20:59
--- NOTE | 2017-11-03 12:37 | DIAGNOSTIC IMAGING REPORT ---
SINGLE VIEW CHEST CLINICAL HISTORY: Rales. FINDINGS: An AP, portable, upright chest radiograph is compared to study dated 11/01/2017 and correlated with chest CT dated 09/09/2017. The examination is degraded by portable technique and patient rotation. A left subclavian central venous infusion port is unchanged in position. The heart is enlarged and there is atherosclerotic calcification of the thoracic aorta. There is mild pulmonary basilar congestion. No airspace consolidation or large pleural effusion is identified. Bibasilar atelectasis is noted. No pneumothorax is seen. The skeletal structures are osteopenic. Fusion hardware is present at the thoracolumbar junction. IMPRESSION: Cardiomegaly with evidence of congestive failure. Electronically signed by: Darren Oleary M.D. 11/03/2017 12:36 PM Dictated Date/Time: 11/03/2017 12:35 PM
[2017-11-03] MEDS ORDERED: VANCOMYCIN TROUGH ONE (13:30)
[2017-11-03] MEDS ORDERED: CARVEDILOL 12.5 MG TAB PO ONE (13:30)
[2017-11-03] MEDS ORDERED: FUROSEMIDE INJ 20 MG in SYRINGE 0 ML IV SCH (13:30)
[2017-11-03] MEDS: HYDROmorphone HCL 2 MG TAB PO PRN ×2 (13:48→20:51)
--- NOTE | 2017-11-03 14:36 | Pharmacy Progress Note ---
Glycemic Control Intl Consult Date of Service Nov 03, 2017. Scope Glycemic Pharmacist consulted by Dr Cobb on 11/03/2017 for glycemic control and to write orders per [facility] inpatient glycemic control protocol Objective Weight (Kilograms): 106.600 Accuchecks BSG (last 24hrs): Test 11/02/17 16:01 11/02/17 20:14 11/03/17 00:29 11/03/17 04:44 Bedside Glucose 188 mg/dl (70-90) 209 mg/dl (70-90) Random Glucose 154 mg/dl (70-99) 73 mg/dl (70-99) Test 11/03/17 06:10 11/03/17 06:31 11/03/17 06:58 11/03/17 11:21 Bedside Glucose 68 mg/dl (70-90) 57 mg/dl (70-90) 125 mg/dl (70-90) 162 mg/dl (70-90) Laboratory Data (last 24hrs) Test 11/02/17 17:15 11/03/17 00:29 11/03/17 04:44 White Blood Count 11.16 K/uL 8.82 K/uL Red Blood Count 2.93 M/uL 2.50 M/uL Hemoglobin 8.4 g/dL 7.1 g/dL Hematocrit 26.5 % 22.4 % Mean Corpuscular Volume 90.4 fL 89.6 fL Mean Corpuscular Hemoglobin 28.7 pg 28.4 pg Mean Corpuscular Hemoglobin Concent 31.7 g/dl 31.7 g/dl Platelet Count 139 K/uL 130 K/uL Mean Platelet Volume 9.2 fL 9.7 fL Anion Gap 7.0 mmol/L 6.0 mmol/L BUN/Creatinine Ratio 8.5 7.9 Blood Urea Nitrogen 29 mg/dl 29 mg/dl Creatinine 3.39 mg/dl 3.69 mg/dl Potassium Level 3.9 mmol/L 3.6 mmol/L Sodium Level 135 mmol/L 135 mmol/L Neutrophils (%) (Auto) 79.6 % Lymphocytes (%) (Auto) 5.4 % Monocytes (%) (Auto) 5.3 % Eosinophils (%) (Auto) 0.3 % Basophils (%) (Auto) 0.3 % Neutrophils # (Auto) 7.01 K/uL Lymphocytes # (Auto) 0.48 K/uL Monocytes # (Auto) 0.47 K/uL Eosinophils # (Auto) 0.03 K/uL Basophils # (Auto) 0.03 K/uL Recent Pertinent Medications Outpatient Anti-diabetic Regimen: * glipizide 10 mg PO qAM + 20 qPM; Levemir 10 units qHS + Novolog * A1c = 11.8 % 09/11/17 The patient is currently receiving: * Basal insulin: Lantus -- units every 24 hours * Correctional Insulin: Novolog Correction per scale ACHS Goal Range: Low 140 mg/dL - High 180 mg/dL Correction Factor: 50 mg/dL/unit * Prandial insulin: Per carb ratio of 1 unit per 35 grams CHO consumed * Oral Agents: Risk Factors for Insulin Resistance: * Infection: zosyn - empiric * IVF: D5NS @ 100 mLs/hr d/c'ed after lunch * Diet: type 2 diabetic diet Assessment & Plan ASSESSMENT: * Ms Andres is a 57 y/o W with a PMH history of B cell lymphoma receiving Neupogen, CAD, and CHF who presents yesterday with intractable pain and and MARIKA (baseline creatinine is 1.07 mg/dL and currently 3.69 mg/dL). * The patient had a low blood sugar this morning which was treated with OJ. She received 3 units of insulin yesterday with 1 unit at bedtime. Patient's last known dose of a sulfonylurea was 12-30 in the morning. I believe that this low blood sugar was from the sulfonylurea and the patient's acute kidney injury. * During previous hospitalizations, the patient has required around 40-50 units of insulin even with an acute kidney injury. HOWEVER, since the patient had a significant low today, will start basal insulin at a low dose only after blood sugar greater than 180 mg/dL. Uncertain how long the effects from the sulfonylurea will hang on. Patient only increased 40 points after eating 52 grams of carbohydrates and had D5NS @ 100 mLs/hr running from [id number]. I suspect patient may be sensitive today. * For Novolog, will utilize a weight-based stress of 2 dosing as this appeared to work before- prefer to utilize a heavier Novolog regimen in patient with kidney injury. PLAN FOR INPATIENT GLYCEMIC CONTROL: * Holding outpatient oral diabetes medications * Basal insulin with LANTUS 10 units SQ BID if blood sugar greater than 180 mg/ dL * Correctional Insulin with NOVOLOG per scale ACHS or Q6hrs while NPO * Goal Range: Low 110 mg/dL - High 140 mg/dL (utilized 140-180 mg/dL for breakfast and lunch) * Correction Factor: 30 mg/dL/unit * Nutritional / Prandial insulin per carb ratio of 1 unit per 10 grams CHO consumed * Please note that the plan above was derived based on current level of insulin resistance and hospital stress. These recommendations are appropriate for inpatient admission only. Plan of care upon discharge will need to be reassessed to avoid potential outpatient hypo/hyperglycemia. Thank you.
[2017-11-03] MEDS ORDERED: PERFLUTREN LIPID MICROSPHERE (DEFINITY) IV ONE (15:16)
[2017-11-03 15:50] LABS: HEMATOCRIT 28.4 % (37-47); MEAN CELL VOLUME 89.3 fL (80-100); MEAN CORPUSCULAR HEMOGLOBIN 28.3 pg (25-34); MEAN PLATELET VOLUME 9.8 fL (7.4-10.4); NUCLEATED RED BLOOD CELL ABS 0.16 K/uL (0-0); PLATELET COUNT 137 K/uL (130-400); RED CELL DISTRIBUTION WIDTH CV 17.5 % (11.5-14.5); RED CELL DISTRIBUTION WIDTH SD 57.3 fL (36.4-46.3); WHITE BLOOD COUNT 11.86 K/uL (4.8-10.8)
[2017-11-03 15:57] LABS: MEAN CORPUSCULAR HGB CONC 31.7 g/dl (32-36)
--- NOTE | 2017-11-03 17:22 | ECHOCARDIOGRAM REPORT ---
*NOTICE TO RECEIVING DEMOCRAT AGENCY This information is strictly Confidential and protected under [place] law. [place] law prohibits you from making any further disclosure of this information unless further disclosure is expressly permitted by the written consent of the person to whom it pertains or is authorized by law. A general authorization for the release of medical or other information is not sufficient for this purpose. Hospital accepts no responsibility if the information is made available to any other person, INCLUDING THE PATIENT. Interpretation Summary * Name: JENNIFER DOTY Study Date: 11/03/2017 02:53 PM BP: 100/62 mmHg * Patient Location: .2T\S\E215\S\1 HR: 84 * : 1960 (M/d/yyyy) Gender: Female Height: 65 in * Age: 57 yrs Ethnicity: [place] Weight: 228 lb * Ordering Physician: Giulia Acuna * Referring Physician: Self, Referred * Performed By: Lyudmila Stokes RDCS * * Reason For Study: ELEVATED TROPONIN, CHEMO PATIENT, NO ACTIVE CHEST PAIN * BSA: 2.1 m2 * -- Conclusions -- * The left ventricle is mildly dilated. * Flattened septum is consistent with RV pressure/volume overload. * There is severe global hypokinesis of the left ventricle. * Left ventricular systolic function is severely reduced. * Ejection Fraction = 25-30%. * The right ventricle is mildly dilated. * The right ventricular systolic function is reduced as assessed by tricuspid annular plane systolic excursion (TAPSE) (TAPSE <1.6 cm). * There is mild mitral regurgitation. * There is mild tricuspid regurgitation. * Mild pulmonary hypertension is present. * The PA systolic pressure is calculated to be 50 mm Hg. * Diastolic dysfunction, Grade II (pseudonormalization pattern). * Compared to the prior study dated 09/11/17, there has been an interval decline with the left ventricular and right ventricular systolic function. Interventricular septal flattening and pulmonary hypertension are now present. Procedure Details * A contrast injection of Definity was performed to improve assessment of LV function. * Contrast was injected into an intravenous site in the central line. * One vial of Definity ultrasound contrast was diluted in normal saline to a total volume of 10 ml. A total of '1' ml of solution was administered during imaging. * Lot # [id number] of Definity utilized for procedure. * Expiration date DEC 22. * The attending nurse who injected the contrast agent was SHIRA DOUGLAS. * A complete two-dimensional transthoracic echocardiogram was performed (2D, M-mode, Doppler and color flow Doppler). Left Ventricle * The left ventricle is mildly dilated. * There is mild concentric left ventricular hypertrophy. * Left ventricular systolic function is severely reduced. * Ejection Fraction = 25-30%. * There is severe global hypokinesis of the left ventricle. * Flattened septum is consistent with RV pressure/volume overload. Right Ventricle * The right ventricle is mildly dilated. * The right ventricular systolic function is reduced as assessed by tricuspid annular plane systolic excursion (TAPSE) (TAPSE <1.6 cm). Atria * The left atrium is mildly dilated. * Right atrial size is normal. * There is no evidence of atrial septal defect, but resolution does not allow assessment for a patent foramen ovale. * The atrial septum is aneurysmal. Mitral Valve * The mitral valve is normal. * There is no mitral valve stenosis. * There is mild mitral regurgitation. Tricuspid Valve * The tricuspid valve is normal. * There is no tricuspid stenosis. * There is mild tricuspid regurgitation. * Mild pulmonary hypertension is present. The PA systolic pressure is calculated to be 50 mm Hg. Aortic Valve * The aortic valve is trileaflet. * Aortic stenosis is absent. * There is no significant aortic regurgitation. Pulmonic Valve * The pulmonary valve is not well seen, but the Doppler examination is normal without significant regurgitation or stenosis. Great Vessels * The aortic root and proximal ascending aorta are normal sized. Pericardium/Pleural * There is a trivial sized posterior loculated pericardial effusion. * There are no echocardiographic indications of cardiac tamponade. Great Vessels * Dilated inferior vena cava with reduced collapsability with sniff indicates an elevated right atrial pressure of 15 mmHg Left Ventricular Diastolic Function * Diastolic dysfunction, Grade II (pseudonormalization pattern). MMode 2D Measurements and Calculations IVSd 1.5 cm IVSs 1.8 cm LVIDd 5.8 cm LVIDs 4.8 cm LVPWd 1.5 cm LVPWs 1.7 cm IVS/LVPW 10 FS 17.0 % EDV(Teich) 169.0 ml ESV(Teich) 110.0 ml EF(Teich) 34.9 % EDV(cubed) 198.9 ml ESV(cubed) 113.9 ml EF(cubed) 42.7 % % IVS thick 25.8 % % LVPW thick 15.8 % LV mass(C)d 391.9 grams LV mass(C)dI 187.4 grams/m\S\2 LV mass(C)s 392.4 grams LV mass(C)sI 187.6 grams/m\S\2 SV(Teich) 59.0 ml SI(Teich) 28.2 ml/m\S\2 SV(cubed) 85.0 ml SI(cubed) 40.7 ml/m\S\2 Ao root diam 2.8 cm Ao root area 6.3 cm\S\2 LA dimension 5.3 cm LA/Ao 1.9 LVAd ap4 46.8 cm\S\2 LVLd ap4 9.4 cm EDV(MOD-sp4) 192.3 ml EDV(sp4-el) 197.3 ml LVAs ap4 36.6 cm\S\2 LVLs ap4 8.3 cm ESV(MOD-sp4) 138.0 ml ESV(sp4-el) 137.6 ml EF(MOD-sp4) 28.2 % EF(sp4-el) 30.2 % LVAd ap2 42.3 cm\S\2 LVLd ap2 9.1 cm EDV(MOD-sp2) 161.8 ml EDV(sp2-el) 166.8 ml LVAs ap2 32.0 cm\S\2 LVLs ap2 8.0 cm ESV(MOD-sp2) 108.1 ml ESV(sp2-el) 108.5 ml EF(MOD-sp2) 33.1 % EF(sp2-el) 34.9 % LVLd %diff -13.17 % EDV(MOD-bp) 184.6 ml LVLs %diff -5.85 % ESV(MOD-bp) 119.9 ml EF(MOD-bp) 35.0 % SV(MOD-sp4) 54.3 ml SI(MOD-sp4) 26.0 ml/m\S\2 SV(MOD-sp2) 53.6 ml SI(MOD-sp2) 25.6 ml/m\S\2 SV(MOD-bp) 64.6 ml SI(MOD-bp) 30.9 ml/m\S\2 SV(sp4-el) 59.6 ml SI(sp4-el) 28.5 ml/m\S\2 SV(sp2-el) 58.2 ml SI(sp2-el) 27.8 ml/m\S\2 Doppler Measurements and Calculations MV E max tatiana 96.0 cm/sec MV A max tatiana 82.2 cm/sec MV E/A 1.2 MV dec time 0.22 sec Ao V2 max 132.0 cm/sec Ao max PG 7.0 mmHg Ao max PG (full) 5.2 mmHg AI max tatiana 333.0 cm/sec AI max PG 44.4 mmHg AI dec slope 365.6 cm/sec\S\2 AI P1/2t 266.8 msec LV V1 max PG 1.8 mmHg LV V1 max 67.4 cm/sec MR max tatiana 403.8 cm/sec MR max PG 65.2 mmHg TR max tatiana 270.8 cm/sec
--- NOTE | 2017-11-03 19:59 | DIAGNOSTIC IMAGING REPORT ---
ULTRASOUND BILATERAL LOWER EXTREMITY VENOUS CLINICAL HISTORY: Tachycardia. Cancer history. Clinical concern for deep venous thrombosis. COMPARISON STUDY: No priors. TECHNIQUE: Real-time, grayscale, and color Doppler sonography of the deep veins of the right and left lower extremity was performed from the inguinal crease to the calf. Compression and augmentation were utilized. FINDINGS: There is no sonographic evidence of deep venous thrombosis identified in the right or left lower extremity. The common femoral, superficial femoral, and popliteal veins are patent and normally compressible bilaterally. The greater saphenous vein and the profunda femoris vein at the junction with the common femoral vein are clear in both legs. The visualized calf veins are patent bilaterally. IMPRESSION: There is no sonographic evidence of deep venous thrombosis identified in the right or left lower extremity. Electronically signed by: Darren Oleary M.D. 11/03/2017 7:58 PM Dictated Date/Time: 11/03/2017 7:58 PM
[2017-11-03] MEDS: INSULIN GLARGINE SOLOSTAR 100 UNITS/ML 3 ML PEN SC SCH (20:34)
[2017-11-03] MEDS: TRAZODONE HCL 50 MG TAB PO SCH (20:39)
[2017-11-03] MEDS: CARVEDILOL 25 MG TAB PO SCH (20:39)
[2017-11-04] VITALS (23 sets, daily range): BP systolic 95–151; BP diastolic 48–79; PULSE 73–98; TEMP 35.6–36.9; O2SAT 90–100
[2017-11-04] MEDS: INSULIN ASPART 100 UNITS/ML 3 ML PEN SC SCH ×5 (00:36→21:14)
[2017-11-04] MEDS: LEVALBUTEROL 1.25MG/3ML NEB INH PRN ×2 (03:22→07:03)
[2017-11-04 04:28] LABS: HEMATOCRIT 26.5 % (37-47); HEMOGLOBIN 8.6 g/dL (12.0-16.0); MEAN CELL VOLUME 88.3 fL (80-100); MEAN CORPUSCULAR HEMOGLOBIN 28.7 pg (25-34); MEAN CORPUSCULAR HGB CONC 32.5 g/dl (32-36); MEAN PLATELET VOLUME 9.9 fL (7.4-10.4); NUCLEATED RED BLOOD CELL ABS 0.12 K/uL (0-0); PLATELET COUNT 135 K/uL (130-400); RED CELL DISTRIBUTION WIDTH CV 18.2 % (11.5-14.5); RED CELL DISTRIBUTION WIDTH SD 57.9 fL (36.4-46.3)
[2017-11-04 04:59] LABS: CALCIUM 7.8 mg/dl (8.5-10.1); CREATININE 5.68 mg/dl (0.60-1.20); POTASSIUM 4.3 mmol/L (3.5-5.1)
[2017-11-04 05:04] LABS: PHOSPHORUS 6.5 mg/dl (2.5-4.9)
[2017-11-04] MEDS: PIPERACILL/TAZOBAC IV 4.5 GM in DEXTROSE 5% 100ML IV SCH (05:27)
[2017-11-04] MEDS: GABAPENTIN 300 MG CAP PO SCH ×3 (07:59→21:09)
[2017-11-04] MEDS: VENLAFAXINE HCL XR 37.5 MG CAPXR PO SCH (07:59)
[2017-11-04] MEDS: VENLAFAXINE HCL XR 150 MG CAPXR PO SCH (07:59)
[2017-11-04] MEDS: ASPIRIN 81 MG ECTAB PO SCH (08:00)
[2017-11-04] MEDS: TRICOR~ORDER AWAITING ACTION SCH ×3 (08:00→16:00)
[2017-11-04] MEDS: DOCUSATE SODIUM/SENNA 50/8.6MG TAB PO SCH (08:00)
[2017-11-04] MEDS: MUPIROCIN 2% OINT 22 GM TUBE EXT SCH ×3 (08:00→21:09)
[2017-11-04] MEDS: CLOPIDOGREL BISULFATE 75 MG TAB PO SCH (08:00)
[2017-11-04] MEDS: CARVEDILOL 25 MG TAB PO SCH ×2 (08:01→21:09)
--- NOTE | 2017-11-04 10:43 | Surgery Consultation ---
Consultation Date of Service Nov 04, 2017. 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 Pt admtis fatigue, malaise. Denies CASTILLO, fever, chills, chest pain, SOB, abd pain, N/V, rest pain, claudication,other complaints. Creatinine continues to climb, over 5 today. (Ronda Barnes, WILSON) Vitals Vital Signs Past 12 Hours Date Time Temp Pulse Resp B/P (MAP) Pulse Ox O2 Delivery O2 Flow Rate FiO2 11/04/17 07:48 36.3 91 20 104/62 (76) 94 Room Air 11/04/17 07:05 92 18 93 Room Air 11/04/17 04:00 Room Air 11/04/17 03:22 85 18 90 Room Air 11/04/17 03:06 36.6 98 20 96/62 (73) 91 Room Air 11/03/17 23:59 Room Air 11/03/17 23:01 37.1 98 18 105/70 (82) 92 (Ronda Barnes, WILSON) Allergies Coded Allergies: Adhesives (Verified Allergy, Unknown, RASH, 11/01/17) Home Medications Scheduled Amlodipine (Norvasc), 2.5 MG PO DAILY Ascorbic Acid (Vitamin C), 500 MG PO TID Aspirin (Aspirin 81), 81 MG PO DAILY Atorvastatin Calcium (Lipitor), 80 MG PO DAILY Buspirone Hcl (Buspirone Hcl), 20 MG PO BID Carvedilol (Coreg), 25 MG PO BID Clopidogrel Bisulfate (Clopidogrel), 75 MG PO QAM Fenofibrate Micronized (Tricor), 67 MG PO DAILY Gabapentin (Neurontin), 300 MG PO TID Glipizide (Glucotrol), 20 TAB PO HS Glipizide (Glucotrol), 10 MG PO QAM Home O2 Therapy (Oxygen), 2 LITERS NA PRN Insulin Aspart (Novolog Flexpen), 1 DOSE SC TIDM Insulin Detemir (Levemir Flextouch), 10 UNITS SC HS Metformin Hcl (Glucophage), 1,000 MG PO BID Trazodone Hcl (Desyrel), 50 MG PO HS Venlafaxine Hcl (Effexor Xr), 1 CAP PO DAILY Venlafaxine Hcl (Effexor Xr), 1 CAP PO DAILY Scheduled PRN Albuterol Hfa (Ventolin Hfa), 1-2 PUFFS INH Q4 PRN for SOB/Wheezing Hydrocodone/Acetaminophen 5MG/325MG ([place] 5MG/325MG), 2 TABLET PO Q6 PRN for Pain Hydroxyzine Pamoate (Vistaril), 25 MG PO Q6H PRN for Anxiety/Agitation Lorazepam (Lorazepam), 0.5 MG PO Q6H PRN for Anxiety/Agitation Nitroglycerin (Nitrostat), 0.4 MG UT UD PRN for Chest Pain Problem List Medical Problems: (1) CAD (coronary artery disease) (2) Chronic systolic heart failure (3) CKD (chronic kidney disease), stage III (4) DM type 2 (diabetes mellitus, type 2) (5) Dyslipidemia (6) Dyspnea (7) Heart disease (8) History of migraine (9) Hypertension (10) Intractable pain (11) Ischemic cardiomyopathy (12) Myocardial infarction (13) OCD (obsessive compulsive disorder) (14) DANGELO (obstructive sleep apnea) (15) Pneumonia Surgical Problems: (1) S/P cardiac cath (Ronda Barnes, KENAC) Surgical / Medical History Hx Cardiac Surgery: Yes (Stents 2014 ) Hx Abdominal Surgery: Yes (Cholecystectomy) Hx Cancer Surgery: No Hx Thoracic Surgery: No Hx Orthopedic: Yes (Spinal Reconstruction) Hx Urinary Tract Surgery: No HX Other Surgery: Yes (Hysterectomy ) Past Medical/Surgical History: Diabetes, Heart Disease, High Cholesterol, Hypertension, Kidney Disease (Ronda Barnes, KENAC) Family History Heart disease (Ronda Barnes PA-C) Heart disease (Alfonso Low M.D.) Social History Smoking Status: Former Smoker Hx Tobacco Use In Past Year?: No Hx Alcohol Use - Type & Amnt: No Hx Substance Use -Type & Amnt: No (Ronda Barnes, PATheodoraC) Review of Systems Constitutional: + malaise, No chills, No fever Skin: No change in color Eyes: No visual changes ENMT: No sore throat Respiratory: No cough, No GRIEMS, No short of breath Cardiovascular: No chest pain, No palpitations, No syncope, No edema, No intermittent claudication Gastrointestinal: No abdominal pain, No nausea, No vomiting Neurologic: + weakness, + lethargy, No dizziness, No headache, No numbness, No tingling (Ronda Barnes, KENAC) Physical Exam Constitutional: General Apperance: well-nourished, well-developed, obese Level of Distress: NAD, acutely ill, chronically ill Psychiatric: Mental Status: active & alert, normal mood, normal affect Orientation: oriented except where noted, to time, to place, to person Memory: recent memory normal, remote memory normal Head: normocephalic, atraumatic Eyes: EOM: EOMI ENMT: normal ENT inspection, hearing grossly normal Neck: supple, trachea midline Lungs: Respiratory effort: no dyspnea Auscultation: no wheezing, no rhonchi, decreased breath sounds Cardiovascular: Apical Impulse: not displaced Heart Auscultation: RRR, no rubs, no gallops Peripheral Pulses: Pulses: full and equal, in all extremities except if noted Bruits: none appreciated Carotid Pulse: normal on the left, normal on the right Brachial Pulses: normal on the left, normal on the right Radial Pulse: normal on the left, normal on the right Femoral Pulse: normal on the left, normal on the right Posterior Tibialis Pulse: normal on the left, normal on the right Dorsalis Pedis Pulse: normal on the left, normal on the right Abdomen: Bowel Sounds: normal Inspection & Palpation: soft, non-distended, no tenderness, guarding & rebound, no masses Musculoskeletal: normal strength (5/5 throughout), normal tone Extremities: Upper Right: no cyanosis, no varicosities, edema Upper Left: no cyanosis, no varicosities, no palpable cord, edema Lower Right: no cyanosis, no varicosities, no palpable cord, edema Lower Left: no cyanosis, no varicosities, edema Neurologic: Cranial Nerves: grossly intact (Ronda Barnes, WILSON) Assessment and Plan ASSESSMENT adn PLAN: MARIKA Pt for permcath insertion this AM. Discussed wtih pt, she is agreeable. (Ronda Barnes, PA-C) Patient was seen, examined, and chart reviewed. Agree with exam and treatment plan of the Vascular PA. Patient for a permcath insertion today. I have discussed the risks options and benefits of the procedure with the patient. The patient understands the risks options and benefits and agrees to the procedure. (Alfonso Low M.D.)
[2017-11-04] MEDS ORDERED: FENTANYL CITRATE INJ 50 MCG/1 ML 2 ML VIAL IV PRN (11:00)
[2017-11-04] MEDS ORDERED: ATROPINE SULFATE 0.1 MG/ML 5ML SYR IV PRN (11:00)
[2017-11-04] MEDS ORDERED: EpHEDrine SULFATE INJ 50 MG/ML AMP IV PRN (11:00)
[2017-11-04] MEDS ORDERED: FENTANYL CITRATE INJ 50 MCG/1 ML 2 ML VIAL ONE (11:06)
[2017-11-04] MEDS ORDERED: MIDAZOLAM HCL 1 MG/ML 2ML VIAL ONE (11:06)
--- NOTE | 2017-11-04 11:25 | Cardiology Consultation ---
Cardiology Consultation Date of Service Nov 04, 2017. (Kiki Roman, WILSON) Cardiology Consultation Requesting Physician: Dr. Acuna Attending Education Specialist: Dr. Morel HISTORY OF PRESENT ILLNESS: Ms. Andres is a complex 57 year old female who has followed with Dr. Matute as an outpatient until 2016 with known coronary artery disease, ischemic cardiomyopathy with LVEF previously 40-45% with evidence of old inferior and inferior wall hypokinesis, LILLIAN placement in 03/2015 to the proximal ramus intermedius, repeat cath in 2015 demonstrating widely patent left main , 40% mid LAD , 70% ostial diagonal stenosis , diffuse ramus intermedius disease however the previous stent site at the proximal portion was patent, mild luminal irregularities of the circumflex, 20% RCA stenosis. In 2016, patient diagnosed with B cell lymphoma and has been undergoing aggressive chemotherapy. Updated echo as outpatient in 08/2017 showed interval decline in LV function to 37%. She was admitted to [facility] with cough/SOB in September [address] Walker. LVEF at that time 35-40%. Continued carvedilol was recommended. MERY/ARB contraindicated due to MARIKA. No signs of volume overload noted. She was most recently admitted for persistent nausea/weakness and diffuse pain after 3rd round of chemotherapy. Also found to have MARIKA and oliguria. Carvedilol was on hold due to hypotension. Patient had 3 non sustained runs of VT on 11/02 and 11/03, the longest lasting 21 beats. Patient was asymptomatic. Electrolytes ok. Carvedilol was resumed. She was asymptomatic. At time of consult, patient laying in bed feeling tired. She is NPO for possible dialysis catheter placement today. Creatinine rising this AM. She denies recent chest pain, SOB. She notes ongoing cough, unchanged.d No LE edema. No orthopnea or PND. No sense of palpitations or recent dizziness/near syncope. She denies acute cardiac complaints. Echo completed this admission reviewed which demonstrated interval decline in LV function with EF now 25-30%. Review of Systems: See above for pertinent positives & negatives. A total of 10 systems reviewed and were otherwise negative. MEDICAL ILLNESSES: 1. Coronary artery disease, status post drug-eluting stent to the ramus. 2. Ischemic cardiomyopathy. 3. Diabetes with a recent hemoglobin A1c of 11.8. 4. Elevated BMI. 5. Hypertension. 6. Dyslipidemia. 7. Stage III chronic kidney disease. 8. Obstructive sleep apnea. PAST SURGICAL HISTORY: 1. Cardiac catheterization in April 2015 with 80% proximal ramus intermedius stenosis, receiving drug-eluting stent x1. 2. Repeat cardiac catheterization in 2015, showing no obstructive disease. 3. Tonsil and adenoidectomy. 4. Wrist surgery. 5. Hysterectomy. 6. Laparoscopic cholecystectomy. 7. Lumbar spinal fusion. 8. Recent port placement. FAMILY HISTORY: Noncontributory. SOCIAL HISTORY: The patient denies any alcohol, tobacco or recreational drug use. She currently is employed at [employer]. ALLERGIES: ADHESIVE TAPE. MEDICATIONS AN OUTPATIENT: Reported Home Medications Medications Dose Route/Sig Max Daily Dose Days Date Category Dose Instructions Novolog Flexpen (Insulin Aspart) 100 Units/Ml Inj 1 Dose SC TIDM 11/01/17 Reported TAKE NOVOLOG THREE TIMES A DAY WITH MEALS BASED ON BSG BSG= 120-130 = 0 131-140 = 6 UNITS 141-150 = 12 UNITS AND SO ON Glucotrol (Glipizide) 10 Mg Tab 10 Mg PO QAM 11/01/17 Reported Oxygen Gas 2 Liters NA PRN 11/01/17 Reported Effexor Xr (Venlafaxine Hcl) 37.5 Mg Cap 1 Cap PO DAILY 09/10/17 Reported take with the 150mg to equal 187.5 mg Levemir Flextouch (Insulin Detemir) 100 Unit/Ml Inj 10 Units SC HS 09/10/17 Reported Vistaril (Hydroxyzine Pamoate) 25 Mg Cap 25 Mg PO Q6H PRN 09/10/17 Reported Lorazepam 0.5 Mg Tab 0.5 Mg PO Q6H PRN 09/10/17 Reported Effexor Xr (Venlafaxine Hcl) 150 Mg Cap 1 Cap PO DAILY 09/10/17 Reported 150mg + 37.5 mg to equal 187.5 daily Desyrel (Trazodone Hcl) 50 Mg Tab 50 Mg PO HS 09/10/17 Reported Coreg (Carvedilol) 25 Mg Tab 25 Mg PO BID 09/10/17 Reported Buspirone Hcl 10 Mg Tab 20 Mg PO BID 09/10/17 Reported Vitamin C (Ascorbic Acid) 500 Mg Tab 500 Mg PO TID 05/05/17 Reported Glucophage (Metformin Hcl) 500 Mg Tab 1,000 Mg PO BID 05/05/17 Reported Norvasc (Amlodipine Besylate) 2.5 Mg Tab 2.5 Mg PO DAILY 05/05/17 Reported [place] 5MG/325MG (Acetaminophen/Hydrocodone Bitart) Tab 2 Tablet PO Q6 PRN 12/30/16 Reported Ventolin Hfa (Albuterol) 200 Puffs/20086 Mcg Aers 1-2 Puffs INH Q4 PRN 12/30/16 Reported Aspirin 81 (Aspirin) 81 Mg Tab 81 Mg PO DAILY 05/15/15 Reported Clopidogrel (Clopidogrel Bisulfate) 75 Mg Tab 75 Mg PO QAM 04/12/15 Rx Nitrostat (Nitroglycerin) 0.4 Mg Tab 0.4 Mg UT UD PRN 04/11/[address] ONE TAB UNDER THE TOUNGUE EVERY 5 MINUTES NEEDED FOR CHEST PAIN. TAKE NO MORE THAN 3 TABS. IF CHEST PAIN IS NOT RELIEVED BY 3 TABS CALL 911. Tricor (Fenofibrate Micronized) 67 Mg Cap 67 Mg PO DAILY 04/04/15 Reported Glucotrol (Glipizide) 10 Mg Tab 20 Tab PO HS 04/04/15 Reported Lipitor (Atorvastatin Calcium) 80 Mg Tab 80 Mg PO DAILY 04/04/15 Reported Neurontin (Gabapentin) 300 Mg Cap 300 Mg PO TID 04/04/15 Reported PHYSICAL EXAMINATION: Last 8 Hrs Date Time Temp Pulse Resp B/P (MAP) Pulse Ox O2 Delivery O2 Flow Rate FiO2 11/04/17 07:48 36.3 91 20 104/62 (76) 94 Room Air 11/04/17 07:05 92 18 93 Room Air 11/04/17 04:00 Room Air 11/04/17 03:22 85 18 90 Room Air GENERAL: Awake, alert, and oriented x3. Nonproductive cough is present. HEENT: Normocephalic and atraumatic. Pupils equal, round, and reactive to light and accommodation. Extraocular muscles intact. Anicteric sclerae. Moist mucous membranes. NECK: No JVD and no bruit. CARDIOVASCULAR: Regular. Positive S4. Normal S1 and S2. No S3. No murmurs or rubs. PULMONARY: Scant diffuse rhonchi. No rales or wheezing. ABDOMEN: Bowel sounds x4. Soft. No rebound, guarding, or tenderness. No organomegaly. EXTREMITIES: No clubbing, cyanosis or edema. +2 pedal pulses bilaterally. SKIN: Warm and dry. TEST RESULTS: Telemetry reviewed - NSR with 3 episodes of paroxysmal atrial fibrillation on and 11/03 lasting 7 beats, 21 beats, and 5 beats. 2D echocardiogram reviewed, this admission: * -- Conclusions -- * The left ventricle is mildly dilated. * Flattened septum is consistent with RV pressure/volume overload. * There is severe global hypokinesis of the left ventricle. * Left ventricular systolic function is severely reduced. * Ejection Fraction = 25-30%. * The right ventricle is mildly dilated. * The right ventricular systolic function is reduced as assessed by tricuspid annular plane systolic excursion (TAPSE) (TAPSE <1.6 cm). * There is mild mitral regurgitation. * There is mild tricuspid regurgitation. * Mild pulmonary hypertension is present. * The PA systolic pressure is calculated to be 50 mm Hg. * Diastolic dysfunction, Grade II (pseudonormalization pattern). * Compared to the prior study dated 09/11/17, there has been an interval decline with the left ventricular and right ventricular systolic function. Interventricular septal flattening and pulmonary hypertension are now present. 2D echocardiogram performed on 09/11/2017 was read as mildly dilated LV chamber size with mild concentric LVH, moderately reduced LV systolic function with moderate global hypokinesis, EF 35%-40%, grade 2 diastolic dysfunction, mild aortic valve sclerosis without stenosis, mild mitral regurgitation, and mild left atrial enlargement. IMPRESSION: 1. Paroxysmal ventricular tachycardia, carvedilol had been on hold due to hypotension, now resumed. No recurrent arrhythmias in 24 hours. 2. B-cell lymphoma - 3 rounds of chemotherapy thus far. . 3. History of ischemic cardiomyopathy with interval decline in LV function, now 25-30%. 4. Acute renal failure with oliguria. 5. Anemia. 6. Diabetes. 7. Hypertension. 8. Hyperlipidemia. 9. Coronary artery disease with history of LILLIAN to the ramus intermedius in 2015 , non obstructive disease noted in 2016. RECOMMENDATIONS: Continue carvedilol 25 mg BID (home dose). If she has persistent issues with hypotension, especially after initiation of dialysis, may need to transition to metoprolol succinate. ACEI/ARB held due to ARF but may need to resume given decline in LV function. She has no anginal symptoms, non ischemic EKG, and flat cardiac enzymes, ischemic work up not indicated at this time given other current issues. Decline in LV function may be chemotherapy induced. Case discussed with Dr. Morel. Will follow. (Kiki Roman PA-C) CARDIOLOGY ATTENDING ADDENDUM: The patient was seen and personally examined. Agree with Kiki Roman PA-C's findings and plans as documented above with additions as noted below. Subjective: Patient was seen in return to 15 after arriving back from the vascular operating room having had placement of a tunneled right-sided hemodialysis catheter. She notes that she feels a sensation of shortness of breath that is at the base of her neck, but no chest discomfort. Data: No additional runs of nonsustained ventricular tachycardia today Recent echocardiogram as summarized Kiki Roman's note. Exam: Regular rhythm, chronically ill in appearance, trace ankle edema, mild Rales at the bases bilaterally Impression: History of ischemic heart disease, mild left ventricular systolic dysfunction historically with an ejection fraction in the range of 45% and having had remote PCI to the proximal ramus intermedius. She has had a progressive decline in her ejection fraction in August 2017, September 2017, and further decline now in November 2017 with coexistent diagnosis and treatment for lymphoma. 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 Plan: Patient is back on her home dose of carvedilol. Nephrology input noted and appreciated, plan is to initiate dialysis noted axis is been established. (Russell Morel,NiltonO.)
[2017-11-04] MEDS ORDERED: HEPARIN SOD (PORCINE) 5000 UNIT/ML 1 ML VIAL ONE (11:35)
[2017-11-04] MEDS ORDERED: LIDOCAINE HCL 1% 20 ML VIAL SQ ONE (12:21)
[2017-11-04] MEDS ORDERED: HEPARIN SOD (PORCINE) 5000 UNIT/ML 1 ML VIAL IV ONE (12:21)
--- NOTE | 2017-11-04 12:21 | [facility] Operative Report ---
Operative Report Operative Date Nov 04, 2017. Pre-Operative Diagnosis Acute Renal Failure Post-Operative Diagnosis same Procedure(s) Performed Insertion of Perm Catheter, Right Internal Jugular Approach, Ultrasound Localization of Right Internal Jugular Vein, Fluoroscopy for positioning. Surgeon Dr. Low Medical Billing Instructor Surgeon(s) NOne Estimated Blood Loss 3 Findings Tip in proximal SVC Specimens None Anesthesia MAC Complication(s) None Disposition Recovery Room / PACU Indications Patient's is a 67-year-old female in need of dialysis. PermCath insertion was recommended. I have discussed the risks options and benefits of the procedure with the patient. The patient understands the risks options and benefits and agrees to the procedure. Description of Procedure Patient was takent to the angio suite and placed in the supine position. The right side of the neck and chest wall were prepped and draped in a sterile manner. Local anesthesia was then administered to the appropriate areas of the neck and chest wall. Ultrasound was then used to locate the right internal jugular vein. The vein compressed easily, had no filing defects, and was patent. The vein was then punctured under direct ultrasound imaging. A guidewire was then passed centrally under fluoroscopic imaging. A stab wound was then made in the anterior chest wall and a 19 cm permcath was passed from the stab wound on the chest wall to the puncture site on the neck. The puncture site was then dilated till the 14Fr peel away sheath was inserted. The permcath was then inserted through the sheath to a central position in the distal superior vena cava. The peel away sheath was then removed. The catheter was then sutured in place using nylon sutures. The puncture was then closed using a 4-0 Vicryl subcuticular suture. Dermabond was used for a dressing on the puncture site. Both ports aspirated and flushed easily and were then packed with heparin. A sterile dressing was applied to the catheter. The patient left the angio suite in good condition and tolerated the procedure well. I attest to the content of the Intraoperative Record and any orders documented therein. Any exceptions are noted below.
--- NOTE | 2017-11-04 12:58 | Anesthesiology Progress Note ---
Anesthesia Post Op Note Date & Time Nov 04, 2017 at 12:58 Vital Signs Pain Intensity: 0 Vital Signs Past 12 Hours Date Time Temp Pulse Resp B/P (MAP) Pulse Ox O2 Delivery O2 Flow Rate FiO2 11/04/17 12:50 36.5 91 16 101/80 98 Nasal Cannula 3 11/04/17 12:40 89 16 109/84 99 Nasal Cannula 3 11/04/17 12:31 36 90 18 98/82 100 Oxymask 8 11/04/17 11:19 92 18 92 Room Air 11/04/17 10:36 36.9 94 20 95/72 (80) 95 Room Air 11/04/17 08:00 Room Air 11/04/17 07:48 36.3 91 20 104/62 (76) 94 Room Air 11/04/17 07:05 92 18 93 Room Air 11/04/17 04:00 Room Air 11/04/17 03:22 85 18 90 Room Air 11/04/17 03:06 36.6 98 20 96/62 (73) 91 Room Air Notes Mental Status: alert / awake / arousable, participated in evaluation Pt Amnestic to Procedure: Yes Nausea / Vomiting: adequately controlled Pain: adequately controlled Airway Patency, RR, SpO2: stable & adequate BP & HR: stable & adequate Hydration State: stable & adequate Anesthetic Complications: no major complications apparent
--- NOTE | 2017-11-04 13:45 | Pharmacy Progress Note ---
Pharmacy Glycemic Short Note 2 Date of Service Nov 04, 2017. OUTPATIENT ANTIDIABETIC REGIMEN: * glipizide 10 mg PO qAM + 20 qPM; Levemir 10 units qHS + Novolog * A1c = 11.8 % 09/11/17 ASSESSMENT: * Ms. Andres received 26 units of insulin yesterday with BSGs ranging from 70- 206 mg/dL in the past 24 hours * Fasting BSG looked good today, however, her most recent BSG is down to 70 * She was NPO this AM for a permcath placement but diet has been resumed so I anticipate BSG to improve * Will plan to adjust the scale for Lantus tonight if she remains on the lower side * Continue current Novolog parameters as they appear appropriate PLAN FOR INPATIENT GLYCEMIC CONTROL: * Basal insulin * Lantus 0, 5 or 10 units qHS, depending on BSG * Bolus insulin * NovoLog per scale ACHS or Q6hrs while NPO * Goal Range: Low 110 mg/dL - High 140 mg/dL * Correction Factor: 30 mg/dL/unit * Nutritional / Prandial insulin per carb ratio of 1 unit per 10 grams CHO consumed
--- NOTE | 2017-11-04 14:10 | NEPHROLOGY PROGRESS NOTE ---
DATE: 11/04/2017 SUBJECTIVE: The patient continues to be oliguric. Kidney function continues to get worse. She has shortness of breath as well as lower extremity edema. Urine output yesterday in a 24-hour time is 400 mL. Her weight has been going up. OBJECTIVE: ENT: Mucous membrane is moist. NECK: Supple. No jugular venous distention. CHEST: Bilateral basal crackles as well as wheezing. EXTREMITIES: Showed trace edema. IMAGING STUDIES: Echocardiogram report was reviewed in detail, which shows very depressed ejection fraction and findings consistent with some evidence of fluid overload. LABORATORY TESTS: BUN 48, creatinine 4.68. Sodium 135, potassium 4.3, creatinine has been going up every single day. It was 1.07 four days ago and since then, it has gone up to 3.39 and this morning, it is 5.68. ASSESSMENT AND PLAN: Acute kidney injury with a creatinine of 1.07 on admission, now it is up to 5.69 with significant oliguria. This is more likely consistent with acute tubular necrosis, unlikely to have improvement. At this time, we have decided to start dialysis. She just had a dialysis catheter placed and we will do her first dialysis today. For today, we will do 3 hours on a 3K bath, no heparin, no Epogen and take about 1 kilo of fluid off. Most likely, we will do dialysis again tomorrow also mainly for fluid removal part. YUMIKO
[2017-11-04] MEDS ORDERED: NURSING VERBAL MED ORDER ONE (14:30)
[2017-11-04] MEDS ORDERED: ALTEPLASE, RECOMBINANT 1 MG/ML 2 ML VIAL IV SCH (14:30)
--- NOTE | 2017-11-04 18:08 | Progress Note ---
Subjective Date of Service: Nov 04, 2017. Subjective Pt evaluation today including: conversation w/ patient, physical exam, lab review, review of studies, review of inpatient medication list Saw/examined the patient in room 215 Currently receiving hemodialysis in the room Denies any pain Denies chest pain/shortness of breath Problem List Medical Problems: (1) Acute bronchitis Status: Acute (2) Acute chest pain Status: Acute (3) Anemia Status: Acute (4) Anemia Status: Acute (5) Elevated troponin Status: Acute (6) Enlarged lymph node Status: Acute (7) Hypomagnesemia Status: Acute (8) Hypoxia Status: Acute (9) Neck pain on right side Status: Acute (10) Pulmonary edema Status: Acute Review of Systems Constitutional: + weakness, No fever, No chills Respiratory: No shortness of breath Cardiac: No chest pain Abdomen: No pain, No nausea, No vomiting, No diarrhea Medications Current Inpatient Medications Medications (Trade) Dose Ordered Sig/Chantale Route Start Time Stop Time Status Last Admin Dose Admin Senna/Docusate Sodium (Senokot S Tab) 1 tab QAM PO 11/02/17 09:00 12/02/17 08:59 11/04/17 08:00 1 TAB Amlodipine Besylate (Norvasc Tab) 2.5 mg DAILY PO 11/02/17 09:00 12/02/17 08:59 Future Hold 11/02/17 08:03 2.5 MG Aspirin (Ecotrin Tab) 81 mg DAILY PO 11/02/17 09:00 12/02/17 08:59 11/04/17 08:00 81 MG Carvedilol (Coreg Tab) 25 mg BID PO 11/02/17 09:00 12/02/17 08:59 Future hold 11/04/17 08:01 25 MG Clopidogrel Bisulfate (plAVix TAB) 75 mg QAM PO 11/02/17 09:00 12/02/17 08:59 11/04/17 08:00 75 MG Gabapentin (Neurontin Cap) 300 mg TID PO 11/02/17 09:00 12/02/17 08:59 11/04/17 14:56 300 MG Lorazepam (Ativan Tab) 0.5 mg Q6H PRN PO 11/02/17 00:15 12/02/17 00:14 Trazodone HCl (Desyrel Tab) 50 mg HS PO 11/02/17 21:00 12/02/17 20:59 11/03/17 20:39 50 MG Venlafaxine HCl (effeXOR EXTENDED REL CAP) 37.5 mg DAILY PO 11/02/17 09:00 12/02/17 08:59 11/04/17 07:59 37.5 MG Venlafaxine HCl (effeXOR EXTENDED REL CAP) 150 mg DAILY PO 11/02/17 09:00 12/02/17 08:59 11/04/17 07:59 150 MG Buspirone HCl (Buspar Tab) 20 mg BID PO 11/02/17 09:00 12/02/17 08:59 11/04/17 08:00 20 MG Miscellaneous Information (Order Awaiting Action) 1 ea QS N/A 11/02/17 08:00 12/02/17 07:59 Acetaminophen (Tylenol Tab) 650 mg Q4H PRN PO 11/02/17 00:15 12/02/17 00:14 11/02/17 12:00 650 MG Glucose (Glucose 40% Gel) 15-30 GRAMS 15 GRAMS... UD PRN PO 11/02/17 01:00 12/02/17 00:59 Glucose (Glucose Chew Tab) 4-8 Tablets 4 Tabl... UD PRN PO 11/02/17 01:00 12/02/17 00:59 11/03/17 06:35 4 TABS Dextrose (Dextrose 50% 50ML Syringe) 25-50ML OF 50% DW IV FOR... UD PRN IV 11/02/17 01:00 12/02/17 00:59 Glucagon (Glucagon Inj) 1 mg UD PRN SQ 11/02/17 01:00 12/02/17 00:59 Piperacillin Sod/ Tazobactam Sod (Consult) 1 ea DAILY PRN N/A 11/02/17 01:35 12/02/17 01:34 Levalbuterol (Xopenex 1.25MG/ 3ML Neb) 1.25 mg Q6R PRN INH 11/02/17 14:30 12/02/17 14:29 11/04/17 07:03 1.25 MG Ondansetron HCl (Zofran Inj) 4 mg Q6H PRN IV 11/02/17 17:15 12/02/17 17:14 11/02/17 17:17 4 MG Promethazine HCl (Phenergan Tab) 25 mg Q6H PRN PO 11/02/17 17:15 12/02/17 17:14 Miscellaneous Information (Consult Glycemic Management Pharmacy) 1 ea UD PRN N/A 11/03/17 07:20 12/03/17 07:19 Mupirocin (Bactroban 2% Oint) 1 appln BID EXT 11/03/17 09:00 11/08/17 08:59 11/04/17 08:00 1 APPLN Insulin Glargine (Lantus Solostar Pen) SEE PROTOCOL TEXT HS SC 11/03/17 21:00 12/03/17 20:59 11/03/17 20:34 10 UNITS Hydromorphone HCl (Dilaudid Tab) 2 mg Q4H PRN PO 11/03/17 12:15 11/17/17 12:14 11/03/17 20:51 2 MG Piperacillin Sod/ Tazobactam Sod 4.5 gm/Dextrose 120 ml @ 30 mls/hr Q12H IV 11/03/17 18:00 11/08/17 23:59 11/04/17 05:27 30 MLS/HR Insulin Aspart (novoLOG ASPART) SLIDING SCALE If C... ACHS SC 11/04/17 13:30 12/04/17 13:29 Objective Vital Signs Date Time Temp Pulse Resp B/P (MAP) Pulse Ox O2 Delivery O2 Flow Rate FiO2 11/04/17 17:15 82 141/57 11/04/17 17:00 78 138/67 11/04/17 16:45 76 125/66 11/04/17 16:30 84 127/76 11/04/17 16:15 81 147/69 11/04/17 16:00 78 144/76 11/04/17 16:00 Room Air 11/04/17 15:45 73 134/73 11/04/17 15:30 81 137/62 11/04/17 15:25 35.6 94 20 95/48 (64) 97 Room Air 11/04/17 15:15 76 143/64 11/04/17 15:00 86 137/75 11/04/17 14:45 82 147/62 11/04/17 14:35 83 151/68 11/04/17 14:25 35.6 85 147/71 (96) 11/04/17 13:07 36.3 90 16 113/79 (90) 100 Nasal Cannula 3.0 11/04/17 12:50 36.5 91 16 101/80 98 Nasal Cannula 3 11/04/17 12:40 89 16 109/84 99 Nasal Cannula 3 11/04/17 12:31 36 90 18 98/82 100 Oxymask 8 11/04/17 11:19 92 18 92 Room Air 11/04/17 10:36 36.9 94 20 95/72 (80) 95 Room Air 11/04/17 08:00 Room Air 11/04/17 07:48 36.3 91 20 104/62 (76) 94 Room Air 11/04/17 07:05 92 18 93 Room Air 11/04/17 04:00 Room Air 11/04/17 03:22 85 18 90 Room Air 11/04/17 03:06 36.6 98 20 96/62 (73) 91 Room Air 11/03/17 23:59 Room Air 11/03/17 23:01 37.1 98 18 105/70 (82) 92 11/03/17 20:00 Room Air 11/03/17 19:25 36.6 96 18 98/62 (74) 97 Room Air Physical Exam General Appearance: no apparent distress, + pertinent finding (chronically ill appearing) Respiratory/Chest: no respiratory distress, no accessory muscle use Cardiovascular: regular rate, rhythm, no edema, no murmur Extremities: normal inspection, no pedal edema Neurologic/Psychiatric: no motor/sensory deficits, alert, normal mood/affect Laboratory Results Last 24 Hours Test 11/03/17 20:24 11/04/17 00:03 11/04/17 03:12 11/04/17 04:15 Bedside Glucose 206 mg/dl 197 mg/dl 173 mg/dl White Blood Count 14.80 K/uL Red Blood Count 3.00 M/uL Hemoglobin 8.6 g/dL Hematocrit 26.5 % Mean Corpuscular Volume 88.3 fL Mean Corpuscular Hemoglobin 28.7 pg Mean Corpuscular Hemoglobin Concent 32.5 g/dl RDW Standard Deviation 57.9 fL RDW Coefficient of Variation 18.2 % Platelet Count 135 K/uL Mean Platelet Volume 9.9 fL Nucleated RBC Absolute Count (auto) 0.12 K/uL Nucleated Red Blood Cells % 0.8 % Sodium Level 135 mmol/L Potassium Level 4.3 mmol/L Chloride Level 101 mmol/L Carbon Dioxide Level 25 mmol/L Anion Gap 9.0 mmol/L Blood Urea Nitrogen 48 mg/dl Creatinine 5.68 mg/dl Est Creatinine Clear Calc Drug Dose 13.4 ml/min Estimated GFR () 8.9 Estimated GFR (Non- 7.7 BUN/Creatinine Ratio 8.4 Random Glucose 147 mg/dl Calcium Level 7.8 mg/dl Phosphorus Level 6.5 mg/dl Magnesium Level 2.0 mg/dl Test 11/04/17 06:13 11/04/17 10:59 11/04/17 12:37 11/04/17 13:37 Bedside Glucose 149 mg/dl 83 mg/dl 70 mg/dl Hepatitis B Surface Antigen NEG Hepatitis B Surface Antibody NEG Test 11/04/17 15:56 Bedside Glucose 113 mg/dl Assessment and Plan This is a 57 year old female with a PMH of large B cell lymphoma and ongoing chemotherapy, hx. of chemo-induced neutropenia, pancytopenia, CAD s/p stenting, ischemic cardiomyopathy, systolic CHF, DM2, HTN, HLD Acute Kidney Injury Acute Tubular Necrosis creatinine went from 1.0 at baseline creatinine increased to >3 to >5 appreciate nephrology input due to significant oliguria, urgent dialysis needed vascular surgery placed PermCath received HD today; will need HD x3 days fluid overload is an issue, monitor and fluid removal with HD Paroxysmal Ventricular Tachycardia appreciate cardiology input b-isael (Coreg) restarted monitor for hypotension with dialysis Reduction LV Function Hx. of Ischemic Cardiomyopathy Chronic Systolic CHF worsening LV function TTE shows an LVEF of 25-30%, severe global hypokinesis appears to be worsening cardiomyopathy; chemo-induced vs. non-ischemic stress cardiomyopathy restarted Coreg monitor BP and start MERY-I or ARB as tolerated Elevated Troponin in the setting of CAD mild elevation of troponin likely multifactorial, including kidney injury, significant reduction in LVEF, and paroxysmal NSVT no chest pain; has had a stent placed continue aspirin, Plavix, statin, b-isael Pancytopenia secondary to Large B Cell Lymphoma appreciate oncology input received Neulasta, which is causing WBC to be elevated; no sign of infection noted - continue Zosyn, cultures pending anemia noted; s/p one unit pRBC - Hgb 8.6; monitor platelets are stable, no need for transfusion hold chemo as per oncology for now Generalized Bone Pain secondary to lymphoma and Neulasta use pain controlled with medications DM2 insulin sliding scale glycemic control consulted DVT ppx Lovenox FULL CODE
--- NOTE | 2017-11-04 18:13 | Hematology/Oncology Prog Note ---
Hematology/Onc Progress Note Date of Service Nov 04, 2017. Subjective I saw her bedside in the late afternoon, she is having hemodialysis( today's the 1st day), earlier in the day blood workup done showed significant rise in the serum creatinine level to around 5.6, potassium level 4.3, calcium 7.8, phosphorus 6.5. Urine output has remained quite low around 400 mL. Has increasing leg edema. No fever. Weight gain noted from 95 --> 106 --> 109 kg. Blood culture --> Negative. MRSA screening --> positive. Earlier she had increasing diarrhea but presently she does not have any diarrhea , she did not give us any stool sample for the further checkup. White blood cell count increased to around 14,800, hemoglobin level 8.6, she did receive 1 unit of PRBC on 11/03/2017. Platelet count is around 135,000. She denies any fever. Denies any increasing bone pain which she had it earlier following Neulasta injection. I am expecting white blood cell count to go up because of recent Neulasta injection. Will see how she does in the next few days, meanwhile she will need hemodialysis support. Vital Signs Vital Signs Past 12 Hours Date Time Temp Pulse Resp B/P (MAP) Pulse Ox O2 Delivery O2 Flow Rate FiO2 11/04/17 17:15 82 141/57 11/04/17 17:00 78 138/67 11/04/17 16:45 76 125/66 11/04/17 16:30 84 127/76 11/04/17 16:15 81 147/69 11/04/17 16:00 78 144/76 11/04/17 16:00 Room Air 11/04/17 15:45 73 134/73 11/04/17 15:30 81 137/62 11/04/17 15:25 35.6 94 20 95/48 (64) 97 Room Air 11/04/17 15:15 76 143/64 11/04/17 15:00 86 137/75 11/04/17 14:45 82 147/62 11/04/17 14:35 83 151/68 11/04/17 14:25 35.6 85 147/71 (96) 11/04/17 13:07 36.3 90 16 113/79 (90) 100 Nasal Cannula 3.0 11/04/17 12:50 36.5 91 16 101/80 98 Nasal Cannula 3 11/04/17 12:40 89 16 109/84 99 Nasal Cannula 3 11/04/17 12:31 36 90 18 98/82 100 Oxymask 8 11/04/17 11:19 92 18 92 Room Air 11/04/17 10:36 36.9 94 20 95/72 (80) 95 Room Air 11/04/17 08:00 Room Air 11/04/17 07:48 36.3 91 20 104/62 (76) 94 Room Air 11/04/17 07:05 92 18 93 Room Air
[2017-11-04] MEDS: HYDROmorphone HCL 2 MG TAB PO PRN (18:37)
[2017-11-04] MEDS: TRAZODONE HCL 50 MG TAB PO SCH (21:08)
[2017-11-04] MEDS: INSULIN GLARGINE SOLOSTAR 100 UNITS/ML 3 ML PEN SC SCH (21:15)
[2017-11-04] MEDS: ACETAMINOPHEN 325 MG TAB PO PRN (21:18)
[2017-11-05] VITALS (21 sets, daily range): BP systolic 89–145; BP diastolic 23–89; PULSE 53–93; TEMP 36.4–36.8; O2SAT 94–97
[2017-11-05 05:40] LABS: CREATININE 5.63 mg/dl (0.60-1.20)
[2017-11-05] MEDS: TRICOR~ORDER AWAITING ACTION SCH ×3 (08:00→16:00)
--- NOTE | 2017-11-05 08:06 | Anesthesiology Progress Note ---
Anesthesia Post Op Note Date & Time Nov 05, 2017 at 08:05 Vital Signs Pain Intensity: 0.0 Vital Signs Past 12 Hours Date Time Temp Pulse Resp B/P (MAP) Pulse Ox O2 Delivery O2 Flow Rate FiO2 11/05/17 07:07 36.8 79 20 101/64 (76) 94 Room Air 11/05/17 04:00 Room Air 11/05/17 03:53 36.4 81 20 100/68 (79) 96 Nasal Cannula 0.0 11/05/17 00:01 Room Air 11/04/17 23:01 36.5 95 19 106/73 (84) 91 Room Air Notes Mental Status: alert / awake / arousable, participated in evaluation Pt Amnestic to Procedure: Yes Nausea / Vomiting: adequately controlled Pain: adequately controlled Airway Patency, RR, SpO2: stable & adequate BP & HR: stable & adequate Hydration State: stable & adequate Anesthetic Complications: no major complications apparent
[2017-11-05] MEDS: MUPIROCIN 2% OINT 22 GM TUBE EXT SCH ×3 (08:11→21:00)
[2017-11-05] MEDS: ASPIRIN 81 MG ECTAB PO SCH (08:12)
[2017-11-05] MEDS: VENLAFAXINE HCL XR 150 MG CAPXR PO SCH (08:12)
[2017-11-05] MEDS: CLOPIDOGREL BISULFATE 75 MG TAB PO SCH (08:12)
[2017-11-05] MEDS: VENLAFAXINE HCL XR 37.5 MG CAPXR PO SCH (08:13)
[2017-11-05] MEDS: GABAPENTIN 300 MG CAP PO SCH ×3 (08:13→20:47)
[2017-11-05] MEDS: DOCUSATE SODIUM/SENNA 50/8.6MG TAB PO SCH (08:13)
[2017-11-05] MEDS: INSULIN ASPART 100 UNITS/ML 3 ML PEN SC SCH ×4 (08:15→20:55)
[2017-11-05] MEDS: LEVALBUTEROL 1.25MG/3ML NEB INH PRN ×2 (08:46→15:36)
[2017-11-05] MEDS ORDERED: METOPROLOL SUCC 25MG EXT REL TAB PO ONE (11:08)
--- NOTE | 2017-11-05 11:08 | Cardiology Follow-Up ---
Subjective General Date of Service: Nov 05, 2017. Chief Complaint: VT; CHF; cardiomyopathy Pt evaluation today including: conversation w/ patient, physical exam, chart review, lab review, review of studies, review of inpatient medication list History of Present Illness Patient currently receiving 2nd dialysis treatment. Mild dizziness noted yesterday after session. No significant improvement in LE edema. She denies SOB. Notes ongoing cough. No orthopnea, PND. No chest pain. Telemetry reviewed -no recurrent VT noted last night or this AM. Allergies Coded Allergies: Adhesives (Verified Allergy, Unknown, RASH, 11/01/17) Social History Smoking Status: Former Smoker Hx Tobacco Use In Past Year?: No Hx Alcohol Use - Type And Amou: No Hx Substance Use - Type And Am: No Problem List Medical Problems: (1) Acute bronchitis Status: Acute (2) Acute chest pain Status: Acute (3) Anemia Status: Acute (4) Anemia Status: Acute (5) Elevated troponin Status: Acute (6) Enlarged lymph node Status: Acute (7) Hypomagnesemia Status: Acute (8) Hypoxia Status: Acute (9) Neck pain on right side Status: Acute (10) Pulmonary edema Status: Acute Review of Systems Respiratory: + cough, + wheezing, No dyspnea at rest Cardiac: + edema, No chest pain, No orthopnea, No PND, No palpitations Physical Exam Vital Signs Last Vital Signs Documentation Date Time Temp Pulse Resp B/P (MAP) Pulse Ox O2 Delivery O2 Flow Rate FiO2 11/05/17 10:30 71 107/58 11/05/17 09:30 36.6 11/05/17 08:46 16 96 Room Air 11/05/17 03:53 0.0 Physical Exam Constitutional: General Apperance: well-nourished, well-developed, obese Level of Distress: NAD, acutely ill, chronically ill Psychiatric: Mental Status: active & alert, normal mood, normal affect Orientation: oriented except where noted, to time, to place, to person Memory: recent memory normal, remote memory normal Head: normocephalic, atraumatic Eyes: EOM: EOMI Neck: supple, trachea midline Lungs: Respiratory effort: no dyspnea Auscultation: decreased breath sounds, expiratory wheezing, wet rales/ crackles Cardiovascular: Heart Auscultation: RRR, no murmurs Peripheral Pulses: Bruits: none appreciated Carotid Pulse: normal on the left, normal on the right Radial Pulse: normal on the left, normal on the right Femoral Pulse: normal on the left, normal on the right Dorsalis Pedis Pulse: normal on the left, normal on the right Abdomen: Bowel Sounds: normal Inspection & Palpation: soft, non-distended, no tenderness, guarding & rebound, no masses Extremities: edema (1+) Neurologic: Cranial Nerves: grossly intact Assessment and Plan Assessment and Plan IMPRESSION: 1. Paroxysmal ventricular tachycardia, no recurrent arrhythmias 2. B-cell lymphoma - 3 rounds of chemotherapy thus far. . 3. History of ischemic cardiomyopathy with interval decline in LV function, now 25-30%. 4. Acute renal failure with oliguria, now on HD, currently receiving session #2 5. Anemia. 6. Diabetes. 7. Hypertension, now with hypotension. Amlodipine on hold. Carvedilol on hold. 8. Hyperlipidemia. 9. Coronary artery disease with history of LILLIAN to the ramus intermedius in 2014 , non obstructive disease noted in 2016. RECOMMENDATIONS: Patient now having issues of hypotension with dialysis therapy. Stop carvedilol. Transition to metoprolol succinate 12.5 mg and titrate as tolerated. Hold for HR < 50 and systolic BP < 90. She has no anginal symptoms, non ischemic EKG, and flat cardiac enzymes, ischemic work up not indicated at this time given other current issues. Decline in LV function may be chemotherapy induced. Case discussed with Dr. Morel CARDIOLOGY ATTENDING ADDENDUM: The patient was seen and personally examined. Agree with Kiki Roman PA-C's findings and plans as documented above with additions as noted below. S: patient feeling better compared to when I had seen her pre HD yesterday. Removed 1 L of fluid with HD yesterday, but BP now on the low side prompting coreg to be held. Exam: CV: regular ext: edema improved Lungs: rales OK Imp: as noted above Plan: DC coreg, transition to low dose metoprolol for CM and NSVT in interim . Laboratory Results Last 24 Hours Test 11/04/17 10:59 11/04/17 12:37 11/04/17 13:37 11/04/17 15:56 Bedside Glucose 83 mg/dl 70 mg/dl 113 mg/dl Hepatitis B Surface Antigen NEG Hepatitis B Surface Antibody NEG Test 11/04/17 17:50 11/04/17 20:14 11/05/17 04:57 11/05/17 06:54 Bedside Glucose 104 mg/dl 167 mg/dl 138 mg/dl Creatinine 5.63 mg/dl Est Creatinine Clear Calc Drug Dose 13.7 ml/min Estimated GFR () 9.0 Estimated GFR (Non- 7.8
--- NOTE | 2017-11-05 11:40 | Progress Note ---
Subjective Date of Service: Nov 05, 2017. Subjective Pt evaluation today including: conversation w/ patient, physical exam, lab review, review of studies, review of inpatient medication list Saw/examined the patient in room 215 She's doing well, denies any symptoms still has oliguria, has not urinated much receiving second dialysis treatment today has a mild cough, but denies shortness of breath Problem List Medical Problems: (1) Acute bronchitis Status: Acute (2) Acute chest pain Status: Acute (3) Anemia Status: Acute (4) Anemia Status: Acute (5) Elevated troponin Status: Acute (6) Enlarged lymph node Status: Acute (7) Hypomagnesemia Status: Acute (8) Hypoxia Status: Acute (9) Neck pain on right side Status: Acute (10) Pulmonary edema Status: Acute Review of Systems Respiratory: + cough, + wheezing, No sputum, No shortness of breath, No dyspnea on exertion, No dyspnea at rest, No hemoptysis Cardiac: No chest pain, No edema, No palpitations Abdomen: No pain, No nausea, No vomiting, No diarrhea Female : + problem reported (decreased urination) Medications Current Inpatient Medications Medications (Trade) Dose Ordered Sig/Chantale Route Start Time Stop Time Status Last Admin Dose Admin Senna/Docusate Sodium (Senokot S Tab) 1 tab QAM PO 11/02/17 09:00 12/02/17 08:59 11/04/17 08:00 1 TAB Aspirin (Ecotrin Tab) 81 mg DAILY PO 11/02/17 09:00 12/02/17 08:59 11/05/17 08:12 81 MG Clopidogrel Bisulfate (plAVix TAB) 75 mg QAM PO 11/02/17 09:00 12/02/17 08:59 11/05/17 08:12 75 MG Gabapentin (Neurontin Cap) 300 mg TID PO 11/02/17 09:00 12/02/17 08:59 11/05/17 08:13 300 MG Lorazepam (Ativan Tab) 0.5 mg Q6H PRN PO 11/02/17 00:15 12/02/17 00:14 Trazodone HCl (Desyrel Tab) 50 mg HS PO 11/02/17 21:00 12/02/17 20:59 11/04/17 21:08 50 MG Venlafaxine HCl (effeXOR EXTENDED REL CAP) 37.5 mg DAILY PO 11/02/17 09:00 12/02/17 08:59 11/05/17 08:13 37.5 MG Venlafaxine HCl (effeXOR EXTENDED REL CAP) 150 mg DAILY PO 11/02/17 09:00 12/02/17 08:59 11/05/17 08:12 150 MG Buspirone HCl (Buspar Tab) 20 mg BID PO 11/02/17 09:00 12/02/17 08:59 11/05/17 08:12 20 MG Miscellaneous Information (Order Awaiting Action) 1 ea QS N/A 11/02/17 08:00 12/02/17 07:59 Acetaminophen (Tylenol Tab) 650 mg Q4H PRN PO 11/02/17 00:15 12/02/17 00:14 11/04/17 21:18 650 MG Glucose (Glucose 40% Gel) 15-30 GRAMS 15 GRAMS... UD PRN PO 11/02/17 01:00 12/02/17 00:59 Glucose (Glucose Chew Tab) 4-8 Tablets 4 Tabl... UD PRN PO 11/02/17 01:00 12/02/17 00:59 11/03/17 06:35 4 TABS Dextrose (Dextrose 50% 50ML Syringe) 25-50ML OF 50% DW IV FOR... UD PRN IV 11/02/17 01:00 12/02/17 00:59 Glucagon (Glucagon Inj) 1 mg UD PRN SQ 11/02/17 01:00 12/02/17 00:59 Levalbuterol (Xopenex 1.25MG/ 3ML Neb) 1.25 mg Q6R PRN INH 11/02/17 14:30 12/02/17 14:29 11/05/17 08:46 1.25 MG Ondansetron HCl (Zofran Inj) 4 mg Q6H PRN IV 11/02/17 17:15 12/02/17 17:14 11/02/17 17:17 4 MG Promethazine HCl (Phenergan Tab) 25 mg Q6H PRN PO 11/02/17 17:15 12/02/17 17:14 Miscellaneous Information (Consult Glycemic Management Pharmacy) 1 ea UD PRN N/A 11/03/17 07:20 1/31/18 07:19 Mupirocin (Bactroban 2% Oint) 1 appln BID EXT 11/03/17 09:00 11/08/17 08:59 11/05/17 08:11 1 APPLN Insulin Glargine (Lantus Solostar Pen) SEE PROTOCOL TEXT HS SC 11/03/17 21:00 12/03/17 20:59 11/04/17 21:15 10 UNITS Hydromorphone HCl (Dilaudid Tab) 2 mg Q4H PRN PO 11/03/17 12:15 11/17/17 12:14 11/04/17 18:37 2 MG Insulin Aspart (novoLOG ASPART) SLIDING SCALE If C... ACHS SC 11/04/17 13:30 12/04/17 13:29 11/05/17 08:15 6 UNITS Metoprolol Succinate (Toprol Xl Tab) 12.5 mg QAM PO 11/06/17 09:00 12/06/17 08:59 Objective Vital Signs Date Time Temp Pulse Resp B/P (MAP) Pulse Ox O2 Delivery O2 Flow Rate FiO2 11/05/17 11:00 53 111/54 11/05/17 10:45 79 105/56 11/05/17 10:30 71 107/58 11/05/17 10:15 84 105/54 11/05/17 10:00 86 91/36 11/05/17 09:45 81 145/23 11/05/17 09:30 36.6 83 92/48 (63) 11/05/17 08:46 81 16 96 Room Air 11/05/17 08:00 Room Air 11/05/17 07:07 36.8 79 20 101/64 (76) 94 Room Air 11/05/17 04:00 Room Air 11/05/17 03:53 36.4 81 20 100/68 (79) 96 Nasal Cannula 0.0 11/05/17 00:01 Room Air 11/04/17 23:01 36.5 95 19 106/73 (84) 91 Room Air 11/04/17 20:00 Room Air 11/04/17 19:30 36.8 89 18 103/71 (82) 93 Room Air 11/04/17 17:15 82 141/57 11/04/17 17:00 78 138/67 11/04/17 16:45 76 125/66 11/04/17 16:30 84 127/76 11/04/17 16:15 81 147/69 11/04/17 16:00 78 144/76 11/04/17 16:00 Room Air 11/04/17 15:45 73 134/73 11/04/17 15:30 81 137/62 11/04/17 15:25 35.6 94 20 95/48 (64) 97 Room Air 11/04/17 15:15 76 143/64 11/04/17 15:00 86 137/75 11/04/17 14:45 82 147/62 11/04/17 14:35 83 151/68 11/04/17 14:25 35.6 85 147/71 (96) 11/04/17 13:07 36.3 90 16 113/79 (90) 100 Nasal Cannula 3.0 11/04/17 12:50 36.5 91 16 101/80 98 Nasal Cannula 3 11/04/17 12:40 89 16 109/84 99 Nasal Cannula 3 11/04/17 12:31 36 90 18 98/82 100 Oxymask 8 Physical Exam General Appearance: no apparent distress Respiratory/Chest: no respiratory distress, no accessory muscle use, + wheezing (mild end expiratory wheezing diffusely) Cardiovascular: regular rate, rhythm, no edema, no murmur Abdomen: normal bowel sounds, non tender, soft Extremities: normal inspection, no pedal edema Neurologic/Psychiatric: no motor/sensory deficits, alert, normal mood/affect Laboratory Results Last 24 Hours Test 11/04/17 12:37 11/04/17 13:37 11/04/17 15:56 11/04/17 17:50 Bedside Glucose 70 mg/dl 113 mg/dl 104 mg/dl Hepatitis B Surface Antigen NEG Hepatitis B Surface Antibody NEG Test 11/04/17 20:14 11/05/17 04:57 11/05/17 06:54 11/05/17 11:05 Bedside Glucose 167 mg/dl 138 mg/dl 119 mg/dl Creatinine 5.63 mg/dl Est Creatinine Clear Calc Drug Dose 13.7 ml/min Estimated GFR () 9.0 Estimated GFR (Non- 7.8 Assessment and Plan This is a 57 year old female with a PMH of large B cell lymphoma and ongoing chemotherapy, hx. of chemo-induced neutropenia, pancytopenia, CAD s/p stenting, ischemic cardiomyopathy, systolic CHF, DM2, HTN, HLD Acute Kidney Injury Acute Tubular Necrosis 1/3 creatinine remains elevated appreciate nephrology input will receive second round of HD today fluid removal with HD monitor BP and electrolytes 1/2 creatinine went from 1.0 at baseline creatinine increased to >3 to >5 appreciate nephrology input due to significant oliguria, urgent dialysis needed vascular surgery placed PermCath received HD today; will need HD x3 days fluid overload is an issue, monitor and fluid removal with HD Paroxysmal Ventricular Tachycardia 1/3 appreciate cardiology input Coreg changed to Lopressor due to blood pressure issues 1/2 appreciate cardiology input b-isael (Coreg) restarted monitor for hypotension with dialysis Reduction LV Function Hx. of Ischemic Cardiomyopathy Chronic Systolic CHF 1/ Coreg changed to Metoprolol 1/2 worsening LV function TTE shows an LVEF of 25-30%, severe global hypokinesis appears to be worsening cardiomyopathy; chemo-induced vs. non-ischemic stress cardiomyopathy restarted Coreg monitor BP and start MERY-I or ARB as tolerated Elevated Troponin in the setting of CAD mild elevation of troponin likely multifactorial, including kidney injury, significant reduction in LVEF, and paroxysmal NSVT no chest pain; has had a stent placed continue aspirin, Plavix, statin, b-isael Pancytopenia secondary to Large B Cell Lymphoma appreciate oncology input received Neulasta, which is causing WBC to be elevated; no sign of infection noted - continue Zosyn, cultures pending anemia noted; s/p one unit pRBC - Hgb 8.6; monitor platelets are stable, no need for transfusion hold chemo as per oncology for now Generalized Bone Pain secondary to lymphoma and Neulasta use pain controlled with medications DM2 insulin sliding scale glycemic control consulted DVT ppx Lovenox FULL CODE
--- NOTE | 2017-11-05 17:14 | NEPHROLOGY PROGRESS NOTE ---
DATE: 11/05/2017 SUBJECTIVE: The patient continues to be oliguric renal function, continues to be abnormal. She had short dialysis yesterday for 2 hours and we did another 3 hours today, 1 kilo of fluid was removed today with dialysis. Urine output yesterday in a 24-hour time period was only 100 mL. OBJECTIVE: VITAL SIGNS: Blood pressure is 103/80, 97% on room air, pulse rate 93 per minute, temperature 36.5, respiratory rate 16 per minute. HEENT: Mucous membrane is moist. NECK: Supple. No jugular venous distention. CHEST: Bilateral basal crackles as well as wheezing. EXTREMITIES: Shows trace to 1+ edema; weight gain has gone up quite a bit from 96 kilo on admission, she is up to 109.7 kilo. ASSESSMENT AND PLAN: Acute kidney injury; creatinine was 1.07 on admission and now it is up to 5.69 with significant polyuria, this is more likely consistent with acute tubular necrosis and unlikely to have quick improvement. She will continue to be supported with dialysis, at least for the foreseeable future. I am planning to skip dialysis for tomorrow, but that may change depending on the clinical situation, but she will definitely have dialysis on Friday. YUMIKO
[2017-11-05] MEDS: ACETAMINOPHEN 325 MG TAB PO PRN (19:41)
[2017-11-05] MEDS: TRAZODONE HCL 50 MG TAB PO SCH (20:46)
[2017-11-05] MEDS ORDERED: INSULIN GLARGINE SOLOSTAR 100 UNITS/ML 3 ML PEN SC SCH (21:00)
[2017-11-05] MEDS: HYDROmorphone HCL 2 MG TAB PO PRN (23:14)
[2017-11-06] VITALS (7 sets, daily range): BP systolic 99–137; BP diastolic 67–93; PULSE 91–100; TEMP 36.6–37; O2SAT 93–98
[2017-11-06 05:03] LABS: HEMATOCRIT 26.7 % (37-47); HEMOGLOBIN 8.4 g/dL (12.0-16.0); MEAN CELL VOLUME 87.8 fL (80-100); MEAN CORPUSCULAR HEMOGLOBIN 27.6 pg (25-34); MEAN CORPUSCULAR HGB CONC 31.5 g/dl (32-36); MEAN PLATELET VOLUME 10.4 fL (7.4-10.4); NUCLEATED RED BLOOD CELL ABS 0.08 K/uL (0-0); PLATELET COUNT 181 K/uL (130-400); RED CELL DISTRIBUTION WIDTH CV 17.3 % (11.5-14.5); RED CELL DISTRIBUTION WIDTH SD 55.8 fL (36.4-46.3); WHITE BLOOD COUNT 11.52 K/uL (4.8-10.8)
[2017-11-06 05:37] LABS: CALCIUM 7.5 mg/dl (8.5-10.1); CREATININE 5.27 mg/dl (0.60-1.20); PHOSPHORUS 5.4 mg/dl (2.5-4.9); POTASSIUM 4.5 mmol/L (3.5-5.1)
[2017-11-06] MEDS: INSULIN ASPART 100 UNITS/ML 3 ML PEN SC SCH ×4 (07:32→21:05)
[2017-11-06] MEDS: TRICOR~ORDER AWAITING ACTION SCH ×3 (08:00→16:00)
[2017-11-06] MEDS: DOCUSATE SODIUM/SENNA 50/8.6MG TAB PO SCH (09:00)
--- NOTE | 2017-11-06 09:30 | Cardiology Follow-Up ---
Subjective General Date of Service: Nov 06, 2017. Chief Complaint: VT; CHF; cardiomyopathy Pt evaluation today including: conversation w/ patient, physical exam History of Present Illness The patient is a 57 year old female seen in follow up. Pt feeling well. Denies bone pain, CP, or shortness of breath. Tolerated HD yesterday, per I/ O 1 L of fluid removed. Allergies Coded Allergies: Adhesives (Verified Allergy, Unknown, RASH, 11/01/17) Social History Smoking Status: Former Smoker Hx Tobacco Use In Past Year?: No Hx Alcohol Use - Type And Amou: No Hx Substance Use - Type And Am: No Problem List Medical Problems: (1) Acute bronchitis Status: Acute (2) Acute chest pain Status: Acute (3) Anemia Status: Acute (4) Anemia Status: Acute (5) Elevated troponin Status: Acute (6) Enlarged lymph node Status: Acute (7) Hypomagnesemia Status: Acute (8) Hypoxia Status: Acute (9) Neck pain on right side Status: Acute (10) Pulmonary edema Status: Acute Physical Exam Vital Signs Last Vital Signs Documentation Date Time Temp Pulse Resp B/P (MAP) Pulse Ox O2 Delivery O2 Flow Rate FiO2 11/06/17 07:08 36.6 93 20 137/78 (97) 96 Room Air 11/05/17 03:53 0.0 Physical Exam Constitutional: General Apperance: well-nourished, well-developed, obese Level of Distress: NAD, acutely ill, chronically ill Psychiatric: Mental Status: active & alert, normal mood, normal affect Orientation: oriented except where noted, to time, to place, to person Memory: recent memory normal, remote memory normal Head: normocephalic, atraumatic Eyes: EOM: EOMI Neck: supple, trachea midline Lungs: Respiratory effort: no dyspnea Auscultation: no wheezing, no rales/crackles, no rhonchi Cardiovascular: Heart Auscultation: RRR, no murmurs Peripheral Pulses: Bruits: none appreciated Carotid Pulse: normal on the left, normal on the right Radial Pulse: normal on the left, normal on the right Femoral Pulse: normal on the left, normal on the right Dorsalis Pedis Pulse: normal on the left, normal on the right Abdomen: Bowel Sounds: normal Inspection & Palpation: soft, non-distended, no tenderness, guarding & rebound, no masses Extremities: edema (edema improved) Neurologic: Cranial Nerves: grossly intact Assessment and Plan Assessment and Plan IMPRESSION: 1. Paroxysmal ventricular tachycardia, no recurrent arrhythmias 2. B-cell lymphoma - 3 rounds of chemotherapy thus far. . 3. History of ischemic cardiomyopathy with interval decline in LV function, now 25-30%. 4. Acute renal failure with oliguria, now on HD, currently receiving session #2 5. Anemia. 6. Diabetes. 7. Hypertension, now with hypotension. Amlodipine on hold. Carvedilol on hold. 8. Hyperlipidemia. 9. Coronary artery disease with history of LILLIAN to the ramus intermedius in 2014 , non obstructive disease noted in 2016. RECOMMENDATIONS: Continue metoprolol. Based on creatinine and low urine outpt, looks like she will still require HD. Await renal follow up. Holding MERY /ARB due to MARIKA and low BP for now. Laboratory Results Last 24 Hours Test 11/05/17 11:05 11/05/17 16:11 11/05/17 20:08 11/06/17 04:17 Bedside Glucose 119 mg/dl 186 mg/dl 214 mg/dl White Blood Count 11.52 K/uL Red Blood Count 3.04 M/uL Hemoglobin 8.4 g/dL Hematocrit 26.7 % Mean Corpuscular Volume 87.8 fL Mean Corpuscular Hemoglobin 27.6 pg Mean Corpuscular Hemoglobin Concent 31.5 g/dl RDW Standard Deviation 55.8 fL RDW Coefficient of Variation 17.3 % Platelet Count 181 K/uL Mean Platelet Volume 10.4 fL Nucleated RBC Absolute Count (auto) 0.08 K/uL Nucleated Red Blood Cells % 0.7 % Sodium Level 135 mmol/L Potassium Level 4.5 mmol/L Chloride Level 103 mmol/L Carbon Dioxide Level 24 mmol/L Anion Gap 8.0 mmol/L Blood Urea Nitrogen 39 mg/dl Creatinine 5.27 mg/dl Est Creatinine Clear Calc Drug Dose 14.7 ml/min Estimated GFR () 9.8 Estimated GFR (Non- 8.4 BUN/Creatinine Ratio 7.4 Random Glucose 79 mg/dl Calcium Level 7.5 mg/dl Phosphorus Level 5.4 mg/dl Magnesium Level 2.0 mg/dl Chemistry Specimen Hemolysis Test 11/06/17 06:50 Bedside Glucose 70 mg/dl
[2017-11-06] MEDS: GABAPENTIN 300 MG CAP PO SCH ×3 (09:37→21:03)
[2017-11-06] MEDS: MUPIROCIN 2% OINT 22 GM TUBE EXT SCH ×2 (09:37→21:04)
[2017-11-06] MEDS: ASPIRIN 81 MG ECTAB PO SCH (09:37)
[2017-11-06] MEDS: VENLAFAXINE HCL XR 150 MG CAPXR PO SCH (09:37)
[2017-11-06] MEDS: VENLAFAXINE HCL XR 37.5 MG CAPXR PO SCH (09:38)
[2017-11-06] MEDS: METOPROLOL SUCC 25MG EXT REL TAB PO SCH (09:38)
[2017-11-06] MEDS: CLOPIDOGREL BISULFATE 75 MG TAB PO SCH (09:39)
--- NOTE | 2017-11-06 10:05 | Progress Note ---
Subjective Date of Service: Nov 06, 2017. Subjective Pt evaluation today including: conversation w/ patient, physical exam, lab review, review of studies, review of inpatient medication list Saw/examined the patient in room 215 She feels mentally drained; very eager to go home and is down about staying in the hospital I let her know that she will need more dialysis as per nephrology She is agreeable to stay for now Denies chest pain, denies shortness of breath +cough +no edema Problem List Medical Problems: (1) Acute bronchitis Status: Acute (2) Acute chest pain Status: Acute (3) Anemia Status: Acute (4) Anemia Status: Acute (5) Elevated troponin Status: Acute (6) Enlarged lymph node Status: Acute (7) Hypomagnesemia Status: Acute (8) Hypoxia Status: Acute (9) Neck pain on right side Status: Acute (10) Pulmonary edema Status: Acute Review of Systems Respiratory: + cough, + sputum, No shortness of breath, No dyspnea on exertion , No dyspnea at rest, No hemoptysis Cardiac: No chest pain, No edema, No palpitations Abdomen: No pain, No nausea, No vomiting, No diarrhea Medications Current Inpatient Medications Medications (Trade) Dose Ordered Sig/Chantale Route Start Time Stop Time Status Last Admin Dose Admin Senna/Docusate Sodium (Senokot S Tab) 1 tab QAM PO 11/02/17 09:00 12/02/17 08:59 11/04/17 08:00 1 TAB Aspirin (Ecotrin Tab) 81 mg DAILY PO 11/02/17 09:00 12/02/17 08:59 11/06/17 09:37 81 MG Clopidogrel Bisulfate (plAVix TAB) 75 mg QAM PO 11/02/17 09:00 12/02/17 08:59 11/06/17 09:39 75 MG Gabapentin (Neurontin Cap) 300 mg TID PO 11/02/17 09:00 12/02/17 08:59 11/06/17 09:37 300 MG Lorazepam (Ativan Tab) 0.5 mg Q6H PRN PO 11/02/17 00:15 12/02/17 00:14 11/06/17 03:48 0.5 MG Trazodone HCl (Desyrel Tab) 50 mg HS PO 11/02/17 21:00 12/02/17 20:59 11/05/17 20:46 50 MG Venlafaxine HCl (effeXOR EXTENDED REL CAP) 37.5 mg DAILY PO 11/02/17 09:00 12/02/17 08:59 11/06/17 09:38 37.5 MG Venlafaxine HCl (effeXOR EXTENDED REL CAP) 150 mg DAILY PO 11/02/17 09:00 12/02/17 08:59 11/06/17 09:37 150 MG Buspirone HCl (Buspar Tab) 20 mg BID PO 11/02/17 09:00 12/02/17 08:59 11/06/17 09:38 20 MG Miscellaneous Information (Order Awaiting Action) 1 ea QS N/A 11/02/17 08:00 12/02/17 07:59 Acetaminophen (Tylenol Tab) 650 mg Q4H PRN PO 11/02/17 00:15 12/02/17 00:14 11/05/17 19:41 650 MG Glucose (Glucose 40% Gel) 15-30 GRAMS 15 GRAMS... UD PRN PO 11/02/17 01:00 12/02/17 00:59 Glucose (Glucose Chew Tab) 4-8 Tablets 4 Tabl... UD PRN PO 11/02/17 01:00 12/02/17 00:59 11/03/17 06:35 4 TABS Dextrose (Dextrose 50% 50ML Syringe) 25-50ML OF 50% DW IV FOR... UD PRN IV 11/02/17 01:00 12/02/17 00:59 Glucagon (Glucagon Inj) 1 mg UD PRN SQ 11/02/17 01:00 12/02/17 00:59 Levalbuterol (Xopenex 1.25MG/ 3ML Neb) 1.25 mg Q6R PRN INH 11/02/17 14:30 12/02/17 14:29 11/05/17 15:36 1.25 MG Ondansetron HCl (Zofran Inj) 4 mg Q6H PRN IV 11/02/17 17:15 12/02/17 17:14 11/02/17 17:17 4 MG Promethazine HCl (Phenergan Tab) 25 mg Q6H PRN PO 11/02/17 17:15 12/02/17 17:14 Miscellaneous Information (Consult Glycemic Management Pharmacy) 1 ea UD PRN N/A 11/03/17 07:20 12/03/17 07:19 Mupirocin (Bactroban 2% Oint) 1 appln BID EXT 11/03/17 09:00 11/08/17 08:59 11/06/17 09:37 1 APPLN Hydromorphone HCl (Dilaudid Tab) 2 mg Q4H PRN PO 11/03/17 12:15 11/17/17 12:14 11/05/17 23:14 2 MG Insulin Aspart (novoLOG ASPART) SLIDING SCALE If C... ACHS SC 11/04/17 13:30 12/04/17 13:29 11/05/17 20:55 3 UNITS Metoprolol Succinate (Toprol Xl Tab) 12.5 mg QAM PO 11/06/17 09:00 12/06/17 08:59 11/06/17 09:38 12.5 MG Insulin Glargine (Lantus Solostar Pen) 10 units HS SC 11/05/17 21:00 12/05/17 20:59 11/05/17 20:55 10 UNITS Heparin Sodium (Porcine) (Heparin 100 Unit/ml 5ml Flush) 5 ml PRN PRN IV 11/06/17 03:00 12/06/17 02:59 Objective Vital Signs Date Time Temp Pulse Resp B/P (MAP) Pulse Ox O2 Delivery O2 Flow Rate FiO2 11/06/17 07:08 36.6 93 20 137/78 (97) 96 Room Air 11/06/17 04:02 37.0 93 18 108/76 (87) 96 Room Air 11/06/17 04:00 Room Air 11/06/17 00:43 37.0 93 18 102/67 (79) 97 Room Air 11/05/17 23:45 Room Air 11/05/17 20:00 Room Air 11/05/17 19:00 36.4 89 22 109/73 (85) 96 Room Air 11/05/17 16:00 Room Air 11/05/17 15:36 93 16 97 Room Air 11/05/17 14:55 36.5 91 20 103/69 (80) 96 Room Air 11/05/17 14:08 92 110/71 (84) 11/05/17 12:39 36.6 64 89/57 (68) 11/05/17 12:30 60 105/65 11/05/17 12:15 57 106/61 11/05/17 12:00 57 97/58 11/05/17 12:00 Room Air 11/05/17 11:45 68 119/57 11/05/17 11:30 58 109/89 11/05/17 11:15 78 100/64 11/05/17 11:00 36.6 76 20 111/54 (73) 96 Room Air 11/05/17 11:00 53 111/54 11/05/17 10:45 79 105/56 11/05/17 10:30 71 107/58 11/05/17 10:15 84 105/54 11/05/17 10:00 86 91/36 Physical Exam General Appearance: no apparent distress, + pertinent finding (chronically ill) Respiratory/Chest: no respiratory distress, no accessory muscle use, + rhonchi , + wheezing Cardiovascular: regular rate, rhythm, no edema, no murmur Extremities: normal range of motion, non-tender, normal inspection, no pedal edema, no calf tenderness Neurologic/Psychiatric: no motor/sensory deficits, alert, + depressed affect Laboratory Results Last 24 Hours Test 11/05/17 11:05 11/05/17 16:11 11/05/17 20:08 11/06/17 04:17 Bedside Glucose 119 mg/dl 186 mg/dl 214 mg/dl White Blood Count 11.52 K/uL Red Blood Count 3.04 M/uL Hemoglobin 8.4 g/dL Hematocrit 26.7 % Mean Corpuscular Volume 87.8 fL Mean Corpuscular Hemoglobin 27.6 pg Mean Corpuscular Hemoglobin Concent 31.5 g/dl RDW Standard Deviation 55.8 fL RDW Coefficient of Variation 17.3 % Platelet Count 181 K/uL Mean Platelet Volume 10.4 fL Nucleated RBC Absolute Count (auto) 0.08 K/uL Nucleated Red Blood Cells % 0.7 % Sodium Level 135 mmol/L Potassium Level 4.5 mmol/L Chloride Level 103 mmol/L Carbon Dioxide Level 24 mmol/L Anion Gap 8.0 mmol/L Blood Urea Nitrogen 39 mg/dl Creatinine 5.27 mg/dl Est Creatinine Clear Calc Drug Dose 14.7 ml/min Estimated GFR () 9.8 Estimated GFR (Non- 8.4 BUN/Creatinine Ratio 7.4 Random Glucose 79 mg/dl Calcium Level 7.5 mg/dl Phosphorus Level 5.4 mg/dl Magnesium Level 2.0 mg/dl Chemistry Specimen Hemolysis Test 11/06/17 06:50 Bedside Glucose 70 mg/dl Assessment and Plan This is a 57 year old female with a PMH of large B cell lymphoma and ongoing chemotherapy, hx. of chemo-induced neutropenia, pancytopenia, CAD s/p stenting, ischemic cardiomyopathy, systolic CHF, DM2, HTN, HLD Acute Kidney Injury Acute Tubular Necrosis 11/06 creatinine remains >5 appreciate nephrology input will need further dialysis as per nephro 11/05 creatinine remains elevated appreciate nephrology input will receive second round of HD today fluid removal with HD monitor BP and electrolytes 11/04 creatinine went from 1.0 at baseline creatinine increased to >3 to >5 appreciate nephrology input due to significant oliguria, urgent dialysis needed vascular surgery placed PermCath received HD today; will need HD x3 days fluid overload is an issue, monitor and fluid removal with HD Paroxysmal Ventricular Tachycardia 11/06 appreciate cardiology input Coreg has been changed to Metoprolol, will continue this, and monitor BP 11/05 appreciate cardiology input Coreg changed to Lopressor due to blood pressure issues 11/04 appreciate cardiology input b-isael (Coreg) restarted monitor for hypotension with dialysis Reduction LV Function, EF 25-30% Hx. of Ischemic Cardiomyopathy Chronic Systolic CHF 11/06 monitor for fluid overload receiving HD for fluid management and fluid removal continue b-isael no MERY-I/ARB as of yet due to kidney injury 11/05 Coreg changed to Metoprolol 1/2 worsening LV function TTE shows an LVEF of 25-30%, severe global hypokinesis appears to be worsening cardiomyopathy; chemo-induced vs. non-ischemic stress cardiomyopathy restarted Coreg monitor BP and start MERY-I or ARB as tolerated Elevated Troponin in the setting of CAD mild elevation of troponin likely multifactorial, including kidney injury, significant reduction in LVEF, and paroxysmal NSVT no chest pain; has had a stent placed continue aspirin, Plavix, statin, b-isael Pancytopenia secondary to Large B Cell Lymphoma appreciate oncology input received Neulasta, which is causing WBC to be elevated; no sign of infection noted - continue Zosyn, cultures pending anemia noted; s/p one unit pRBC - Hgb 8.6; monitor platelets are stable, no need for transfusion hold chemo as per oncology for now Generalized Bone Pain secondary to lymphoma and Neulasta use pain controlled with medications DM2 insulin sliding scale glycemic control consulted DVT ppx Lovenox FULL CODE
--- NOTE | 2017-11-06 10:09 | PROGRESS NOTE ---
DATE: 11/06/2017 DATE: 11/06/2017 SUBJECTIVE: The patient continues to be very oliguric and renal function continues to get worse without dialysis. She had dialysis for 2 hours on Friday and 3 hours on Friday. We took about 1 kilo of fluid yesterday with dialysis and she tolerated the dialysis pretty well. She is very emotionally fragile at this time and is very depressed with all her medical problems she is having. OBJECTIVE: VITAL SIGNS: Blood pressure most recently 137/78, 96% on room air, temperature 36.6, pulse rate 93 per minute. HEAD, EYES, EARS, NOSE, AND THROAT: Mucous membrane is moist. NECK: Supple. No jugular venous distention. CHEST: Bilateral basal crackles as well as wheezing. EXTREMITIES: Shows 1+ edema. Her weight has gone up a lot from 96 kilos at the time of admission to 110 kilos this morning. ASSESSMENT AND PLAN: Acute kidney injury. Creatinine was 1.07 on admission and now it is up to 6 with significant oliguria. This is more likely consistent with acute tubular necrosis and unlikely to have quick improvement. She will continue to be supported with dialysis at least for the foreseeable future. Her next dialysis will be tomorrow for 3 hours and then will also do another session on Friday for 3 hours. I am planning to take at least 2-2.5 kilo of fluid off on each session.
--- NOTE | 2017-11-06 10:20 | Pharmacy Progress Note ---
Pharmacy Glycemic Short Note 2 Date of Service Nov 06, 2017. OUTPATIENT ANTIDIABETIC REGIMEN: * glipizide 10 mg PO qAM + 20 qPM; Levemir 10 units qHS + Novolog * A1c = 11.8 % 09/11/17 ASSESSMENT: * Ms. Andres received 29 units of insulin yesterday with BSGs ranging from 70- 214 mg/dL in the past 24 hours * She will be dialyzed again today with potential discharge later today * No changes to causes of insulin resistance * Fasting BSG = 70; she is currently on her home basal dose of 10 units. Will decrease by 20% to prevent further lows. * Postprandial BSGs were somewhat elevated yesterday; I am hesitant to tighten the Novolog parameters since she is on the low side this AM. Will maybe reassess later today and adjust if necessary. PLAN FOR INPATIENT GLYCEMIC CONTROL: * Basal insulin * Decrease Lantus to 8 units qHS * Bolus insulin * NovoLog per scale ACHS or Q6hrs while NPO * Goal Range: Low 110 mg/dL - High 140 mg/dL * Correction Factor: 30 mg/dL/unit * Nutritional / Prandial insulin per carb ratio of 1 unit per 10 grams CHO consumed DISCHARGE RECOMMENDATIONS: * Since patient now has ATN and will be on dialysis until this resolves, outpatient regimen will need adjusted * D/C metformin * Glipizide is one of the sulfonylureas recommended for use in ESRD, but is associated with hypoglycemia. May consider holding glipizide as well and using her sliding scale Novolog in place of this. If Novolog is not controlling BSGs , could probably resume glipizide but at a much lower dose. * Continue Levemir 10 units qHS
[2017-11-06] MEDS ORDERED: INSULIN GLARGINE SOLOSTAR 100 UNITS/ML 3 ML PEN SC SCH (21:00)
[2017-11-06] MEDS: TRAZODONE HCL 50 MG TAB PO SCH (21:03)
[2017-11-06] MEDS: HYDROmorphone HCL 2 MG TAB PO PRN (23:40)
[2017-11-07] VITALS (21 sets, daily range): BP systolic 115–158; BP diastolic 58–107; PULSE 59–109; TEMP 36.2–37.1; O2SAT 94–96
[2017-11-07 04:46] LABS: NUCLEATED RED BLOOD CELL ABS 0.11 K/uL (0-0)
[2017-11-07] MEDS: HYDROmorphone HCL 2 MG TAB PO PRN (04:48)
[2017-11-07 04:57] LABS: HEMATOCRIT 26.6 % (37-47); HEMOGLOBIN 8.7 g/dL (12.0-16.0); MEAN CELL VOLUME 88.1 fL (80-100); MEAN CORPUSCULAR HEMOGLOBIN 28.8 pg (25-34); MEAN CORPUSCULAR HGB CONC 32.7 g/dl (32-36); MEAN PLATELET VOLUME 9.5 fL (7.4-10.4); PLATELET COUNT 302 K/uL (130-400); RED CELL DISTRIBUTION WIDTH CV 17.2 % (11.5-14.5); RED CELL DISTRIBUTION WIDTH SD 55.5 fL (36.4-46.3); WHITE BLOOD COUNT 17.32 K/uL (4.8-10.8)
[2017-11-07 05:28] LABS: CREATININE 6.18 mg/dl (0.60-1.20); POTASSIUM 4.9 mmol/L (3.5-5.1)
[2017-11-07] MEDS: INSULIN ASPART 100 UNITS/ML 3 ML PEN SC SCH ×3 (07:00→17:29)
[2017-11-07] MEDS: TRICOR~ORDER AWAITING ACTION SCH ×4 (08:00→23:37)
--- NOTE | 2017-11-07 10:11 | Pharmacy Progress Note ---
Pharmacy Glycemic Short Note 2 Date of Service Nov 07, 2017. OUTPATIENT ANTIDIABETIC REGIMEN: * glipizide 10 mg PO qAM + 20 qPM; Levemir 10 units qHS + Novolog * A1c = 11.8 % 09/11/17 ASSESSMENT: 11/07/17 * Ms Andres received 26 units of insulin yesterday with BSGs ranging from 70- 250 mg/dL yesterday. Fasting today was 89 mg/dL. * There is no dialysis orders for today and no changes for insulin resistance. * Change Lantus to 6- 8 units as the patient's fasting blood sugar increased slightly today from 70 mg/dL to 89 mg/dL but decreased at lunch. * Postprandial BSGs continue to rise throughout the day with significant decline in blood sugars from bedtime to morning. Unfortunately, the patient's lunch blood was decreased slightly to 72 mg/dL. Tighten carbohydrate ratio for meals starting with lunch today since when the patient eats the blood sugars are elevated. For bedtime, include significantly loosened correction factor since she has such a large decrease in blood sugar. 11/06/17 * Ms. Andres received 29 units of insulin yesterday with BSGs ranging from 70- 214 mg/dL in the past 24 hours * She will be dialyzed again today with potential discharge later today * No changes to causes of insulin resistance * Fasting BSG = 70; she is currently on her home basal dose of 10 units. Will decrease by 20% to prevent further lows. * Postprandial BSGs were somewhat elevated yesterday; I am hesitant to tighten the Novolog parameters since she is on the low side this AM. Will maybe reassess later today and adjust if necessary. PLAN FOR INPATIENT GLYCEMIC CONTROL: * Basal insulin * Change Lantus to 6-8 units qHS * Bolus insulin * NovoLog per scale ACHS or Q6hrs while NPO * Goal Range: Low 110 mg/dL - High 140 mg/dL * Correction Factor: 30 mg/dL/unit (45 mg/dL/unit at bedtime) * Nutritional / Prandial insulin per carb ratio of 1 unit per 8 grams CHO consumed (no carbohydrate ratio at bedtime) DISCHARGE RECOMMENDATIONS: * Since patient now has ATN and will be on dialysis until this resolves, outpatient regimen will need adjusted * D/C metformin * Glipizide is one of the sulfonylureas recommended for use in ESRD, but is associated with hypoglycemia. May consider holding glipizide as well and using her sliding scale Novolog in place of this. If Novolog is not controlling BSGs , could probably resume glipizide but at a much lower dose. * Continue Levemir 8 units qHS
[2017-11-07] MEDS: MUPIROCIN 2% OINT 22 GM TUBE EXT SCH ×2 (10:47→21:55)
[2017-11-07] MEDS: VENLAFAXINE HCL XR 150 MG CAPXR PO SCH (10:48)
[2017-11-07] MEDS: ASPIRIN 81 MG ECTAB PO SCH (10:48)
[2017-11-07] MEDS: VENLAFAXINE HCL XR 37.5 MG CAPXR PO SCH (10:48)
[2017-11-07] MEDS: DOCUSATE SODIUM/SENNA 50/8.6MG TAB PO SCH (10:49)
[2017-11-07] MEDS: GABAPENTIN 300 MG CAP PO SCH ×3 (10:49→21:57)
[2017-11-07] MEDS: METOPROLOL SUCC 25MG EXT REL TAB PO SCH (10:49)
[2017-11-07] MEDS: CLOPIDOGREL BISULFATE 75 MG TAB PO SCH (10:50)
--- NOTE | 2017-11-07 16:07 | Cardiology Follow-Up ---
Subjective General Date of Service: Nov 07, 2017. Chief Complaint: VT; CHF; cardiomyopathy Pt evaluation today including: conversation w/ patient, physical exam History of Present Illness The patient is a 57 year old female seen in follow up . Telemetry reveals SR, occasional PVCs, no recurrent NSVT. per I/ O summary 3 L off with HD today 325 ml of urine. Allergies Coded Allergies: Adhesives (Verified Allergy, Unknown, RASH, 11/01/17) Social History Smoking Status: Former Smoker Hx Tobacco Use In Past Year?: No Hx Alcohol Use - Type And Amou: No Hx Substance Use - Type And Am: No Problem List Medical Problems: (1) Acute bronchitis Status: Acute (2) Acute chest pain Status: Acute (3) Anemia Status: Acute (4) Anemia Status: Acute (5) Elevated troponin Status: Acute (6) Enlarged lymph node Status: Acute (7) Hypomagnesemia Status: Acute (8) Hypoxia Status: Acute (9) Neck pain on right side Status: Acute (10) Pulmonary edema Status: Acute Physical Exam Vital Signs Last Vital Signs Documentation Date Time Temp Pulse Resp B/P (MAP) Pulse Ox O2 Delivery O2 Flow Rate FiO2 11/07/17 15:42 36.7 109 18 141/70 (93) 96 11/07/17 12:00 Room Air 11/07/17 04:00 2.0 Physical Exam Constitutional: General Apperance: well-nourished, well-developed, obese Level of Distress: NAD, acutely ill, chronically ill Psychiatric: Mental Status: active & alert, normal mood, normal affect Orientation: oriented except where noted, to time, to place, to person Memory: recent memory normal, remote memory normal Head: normocephalic, atraumatic Eyes: EOM: EOMI Neck: supple, trachea midline Lungs: Respiratory effort: no dyspnea Auscultation: no wheezing, no rales/crackles, no rhonchi Cardiovascular: Heart Auscultation: RRR, no murmurs Peripheral Pulses: Dorsalis Pedis Pulse: normal on the left Abdomen: Bowel Sounds: normal Inspection & Palpation: soft, non-distended, no tenderness, guarding & rebound, no masses Extremities: edema (edema improved) Neurologic: Cranial Nerves: grossly intact Assessment and Plan Assessment and Plan IMPRESSION: 1. Paroxysmal ventricular tachycardia, no recurrent arrhythmias 2. B-cell lymphoma - 3 rounds of chemotherapy thus far. . 3. History of ischemic cardiomyopathy with interval decline in LV function, now 25-30%. 4. Acute renal failure with oliguria, now on HD, currently receiving session #2 5. Anemia. 6. Diabetes. 7. Hypertension, now with hypotension. Amlodipine on hold. Carvedilol on hold. 8. Hyperlipidemia. 9. Coronary artery disease with history of LILLIAN to the ramus intermedius in 2015 , non obstructive disease noted in 2016. RECOMMENDATIONS: BP trending higher, toward her baseline. Will DC metoprolol succinate and resume coreg. Was on 25 mg BID [employer], will start 3.125 mg BID. Based on creatinine and low urine outpt, looks like she will still require HD. Await renal follow up. Holding MERY /ARB due to MARIKA Pt anxious for DC but required HD support. Laboratory Results Last 24 Hours Test 11/06/17 16:23 11/06/17 20:18 11/07/17 04:37 11/07/17 06:28 Bedside Glucose 187 mg/dl 250 mg/dl 89 mg/dl White Blood Count 17.32 K/uL Red Blood Count 3.02 M/uL Hemoglobin 8.7 g/dL Hematocrit 26.6 % Mean Corpuscular Volume 88.1 fL Mean Corpuscular Hemoglobin 28.8 pg Mean Corpuscular Hemoglobin Concent 32.7 g/dl RDW Standard Deviation 55.5 fL RDW Coefficient of Variation 17.2 % Platelet Count 302 K/uL Mean Platelet Volume 9.5 fL Nucleated RBC Absolute Count (auto) 0.11 K/uL Nucleated Red Blood Cells % 0.6 % Sodium Level 136 mmol/L Potassium Level 4.9 mmol/L Chloride Level 104 mmol/L Carbon Dioxide Level 24 mmol/L Anion Gap 8.0 mmol/L Blood Urea Nitrogen 48 mg/dl Creatinine 6.18 mg/dl Est Creatinine Clear Calc Drug Dose 12.5 ml/min Estimated GFR () 8.1 Estimated GFR (Non- 7.0 BUN/Creatinine Ratio 7.8 Random Glucose 91 mg/dl Calcium Level 8.0 mg/dl Magnesium Level 2.1 mg/dl Chemistry Specimen Hemolysis Test 11/07/17 11:08 11/07/17 11:09 11/07/17 11:25 Bedside Glucose 67 mg/dl 72 mg/dl Hepatitis C Antibody NEG
--- NOTE | 2017-11-07 17:06 | Progress Note ---
Subjective Date of Service: Nov 07, 2017. Subjective Pt evaluation today including: conversation w/ patient, physical exam, lab review, review of studies, review of inpatient medication list Saw/examined the patient in room 215 No problems/issues today, she is depressed about being in the hospital No other issues to note. Problem List Medical Problems: (1) Acute bronchitis Status: Acute (2) Acute chest pain Status: Acute (3) Anemia Status: Acute (4) Anemia Status: Acute (5) Elevated troponin Status: Acute (6) Enlarged lymph node Status: Acute (7) Hypomagnesemia Status: Acute (8) Hypoxia Status: Acute (9) Neck pain on right side Status: Acute (10) Pulmonary edema Status: Acute Review of Systems Constitutional: No fever, No chills, No weakness Respiratory: No cough, No sputum, No shortness of breath Cardiac: No chest pain, No edema, No palpitations Objective Vital Signs Date Time Temp Pulse Resp B/P (MAP) Pulse Ox O2 Delivery O2 Flow Rate FiO2 11/07/17 15:42 36.7 109 18 141/70 (93) 96 11/07/17 12:22 36.5 109 18 139/73 (95) 96 11/07/17 12:00 Room Air 11/07/17 10:21 36.2 96 155/107 (123) 11/07/17 10:15 83 128/77 11/07/17 10:00 92 139/95 11/07/17 09:44 69 137/75 11/07/17 09:30 75 133/85 11/07/17 09:15 91 132/86 11/07/17 09:00 68 158/82 11/07/17 08:45 69 143/78 11/07/17 08:30 59 133/58 11/07/17 08:15 60 143/84 11/07/17 08:00 60 145/84 11/07/17 08:00 Room Air 11/07/17 07:45 79 150/91 11/07/17 07:30 86 145/89 11/07/17 07:15 88 139/101 11/07/17 07:00 81 128/79 11/07/17 06:45 89 133/76 11/07/17 06:30 36.7 89 122/61 (81) 11/07/17 04:00 Room Air 2.0 Nasal Cannula 11/07/17 03:19 37.0 101 18 126/80 (95) 94 11/07/17 00:00 Room Air 2.0 Nasal Cannula 11/06/17 23:28 37.0 100 18 132/87 (102) 98 Room Air 11/06/17 20:00 Room Air 11/06/17 19:01 36.8 96 20 132/88 (103) 98 Room Air Physical Exam General Appearance: no apparent distress Respiratory/Chest: lungs clear, normal breath sounds, no respiratory distress, no accessory muscle use Cardiovascular: regular rate, rhythm, no edema, no murmur Extremities: normal inspection, no pedal edema Neurologic/Psychiatric: no motor/sensory deficits, alert, + depressed affect Laboratory Results Last 24 Hours Test 11/06/17 20:18 11/07/17 04:37 11/07/17 06:28 11/07/17 11:08 Bedside Glucose 250 mg/dl 89 mg/dl 67 mg/dl White Blood Count 17.32 K/uL Red Blood Count 3.02 M/uL Hemoglobin 8.7 g/dL Hematocrit 26.6 % Mean Corpuscular Volume 88.1 fL Mean Corpuscular Hemoglobin 28.8 pg Mean Corpuscular Hemoglobin Concent 32.7 g/dl RDW Standard Deviation 55.5 fL RDW Coefficient of Variation 17.2 % Platelet Count 302 K/uL Mean Platelet Volume 9.5 fL Nucleated RBC Absolute Count (auto) 0.11 K/uL Nucleated Red Blood Cells % 0.6 % Sodium Level 136 mmol/L Potassium Level 4.9 mmol/L Chloride Level 104 mmol/L Carbon Dioxide Level 24 mmol/L Anion Gap 8.0 mmol/L Blood Urea Nitrogen 48 mg/dl Creatinine 6.18 mg/dl Est Creatinine Clear Calc Drug Dose 12.5 ml/min Estimated GFR () 8.1 Estimated GFR (Non- 7.0 BUN/Creatinine Ratio 7.8 Random Glucose 91 mg/dl Calcium Level 8.0 mg/dl Magnesium Level 2.1 mg/dl Chemistry Specimen Hemolysis Test 11/07/17 11:09 11/07/17 11:25 11/07/17 16:27 Bedside Glucose 72 mg/dl 235 mg/dl Hepatitis C Antibody NEG Assessment and Plan This is a 57 year old female with a PMH of large B cell lymphoma and ongoing chemotherapy, hx. of chemo-induced neutropenia, pancytopenia, CAD s/p stenting, ischemic cardiomyopathy, systolic CHF, DM2, HTN, HLD Acute Kidney Injury Acute Tubular Necrosis 11/07 plan for HD on Friday, 11/08 dialysis is set up for [facility] in [place] as outpatient plan for d/c in AM b-isael changed back to Coreg as blood pressure allows it 11/06 creatinine remains >5 appreciate nephrology input will need further dialysis as per nephro 11/05 creatinine remains elevated appreciate nephrology input will receive second round of HD today fluid removal with HD monitor BP and electrolytes 11/04 creatinine went from 1.0 at baseline creatinine increased to >3 to >5 appreciate nephrology input due to significant oliguria, urgent dialysis needed vascular surgery placed PermCath received HD today; will need HD x3 days fluid overload is an issue, monitor and fluid removal with HD Paroxysmal Ventricular Tachycardia 11/06 appreciate cardiology input Coreg has been changed to Metoprolol, will continue this, and monitor BP 11/05 appreciate cardiology input Coreg changed to Lopressor due to blood pressure issues 11/04 appreciate cardiology input b-isael (Coreg) restarted monitor for hypotension with dialysis Reduction LV Function, EF 25-30% Hx. of Ischemic Cardiomyopathy Chronic Systolic CHF 11/06 monitor for fluid overload receiving HD for fluid management and fluid removal continue b-isael no MERY-I/ARB as of yet due to kidney injury 11/05 Coreg changed to Metoprolol 11/04 worsening LV function TTE shows an LVEF of 25-30%, severe global hypokinesis appears to be worsening cardiomyopathy; chemo-induced vs. non-ischemic stress cardiomyopathy restarted Coreg monitor BP and start MERY-I or ARB as tolerated Elevated Troponin in the setting of CAD mild elevation of troponin likely multifactorial, including kidney injury, significant reduction in LVEF, and paroxysmal NSVT no chest pain; has had a stent placed continue aspirin, Plavix, statin, b-isael Pancytopenia secondary to Large B Cell Lymphoma appreciate oncology input received Neulasta, which is causing WBC to be elevated; no sign of infection noted - continue Zosyn, cultures pending anemia noted; s/p one unit pRBC - Hgb 8.6; monitor platelets are stable, no need for transfusion hold chemo as per oncology for now Generalized Bone Pain secondary to lymphoma and Neulasta use pain controlled with medications DM2 insulin sliding scale glycemic control consulted DVT ppx Lovenox FULL CODE
[2017-11-07] MEDS ORDERED: INSULIN GLARGINE SOLOSTAR 100 UNITS/ML 3 ML PEN SC SCH (21:00)
[2017-11-07] MEDS ORDERED: INSULIN ASPART 100 UNITS/ML 3 ML PEN SC SCH (21:00)
[2017-11-07] MEDS: TRAZODONE HCL 50 MG TAB PO SCH (21:56)
[2017-11-07] MEDS: CARVEDILOL 3.125 MG TAB PO SCH (21:57)
[2017-11-08] VITALS (21 sets, daily range): BP systolic 97–165; BP diastolic 69–94; PULSE 90–114; TEMP 36.6–37.8; O2SAT 94–97
[2017-11-08 06:59] LABS: CREATININE 4.64 mg/dl (0.60-1.20)
[2017-11-08] MEDS: VENLAFAXINE HCL XR 150 MG CAPXR PO SCH (07:37)
[2017-11-08] MEDS: TRICOR~ORDER AWAITING ACTION SCH ×2 (07:37→16:00)
[2017-11-08] MEDS: VENLAFAXINE HCL XR 37.5 MG CAPXR PO SCH (07:37)
[2017-11-08] MEDS: ASPIRIN 81 MG ECTAB PO SCH (07:38)
[2017-11-08] MEDS: CARVEDILOL 3.125 MG TAB PO SCH (07:38)
[2017-11-08] MEDS: CLOPIDOGREL BISULFATE 75 MG TAB PO SCH (07:39)
[2017-11-08] MEDS: GABAPENTIN 300 MG CAP PO SCH ×2 (07:39→14:03)
[2017-11-08] MEDS: DOCUSATE SODIUM/SENNA 50/8.6MG TAB PO SCH (07:39)
[2017-11-08] MEDS: INSULIN ASPART 100 UNITS/ML 3 ML PEN SC SCH ×2 (07:45→11:45)
--- NOTE | 2017-11-08 10:46 | Cardiology Follow-Up ---
Subjective General Date of Service: Nov 08, 2017. Chief Complaint: VT; CHF; cardiomyopathy Pt evaluation today including: conversation w/ patient, physical exam, chart review, lab review, review of studies, review of inpatient medication list History of Present Illness The patient is a 57 year old female seen in follow-up. Chart reviewed. Nonsustained ventricular tachycardia noted on admission. Decline in left ventricular systolic function noted on echocardiogram. Acute renal failure with new hemodialysis this admission. Patient remains volume overloaded. Carvedilol initially transitioned to metoprolol due to hypotension. Blood pressure improving. No recurrent dysrhythmias on telemetry however mild sinus tachycardia persists. Patient complains of cough and mild expiratory wheezing. Allergies Coded Allergies: Adhesives (Verified Allergy, Unknown, RASH, 11/01/17) Social History Smoking Status: Former Smoker Hx Tobacco Use In Past Year?: No Hx Alcohol Use - Type And Amou: No Hx Substance Use - Type And Am: No Problem List Medical Problems: (1) Acute bronchitis Status: Acute (2) Acute chest pain Status: Acute (3) Anemia Status: Acute (4) Anemia Status: Acute (5) Elevated troponin Status: Acute (6) Enlarged lymph node Status: Acute (7) Hypomagnesemia Status: Acute (8) Hypoxia Status: Acute (9) Neck pain on right side Status: Acute (10) Pulmonary edema Status: Acute Review of Systems Respiratory: + shortness of breath, + dyspnea on exertion, No cough, No wheezing, No dyspnea at rest, No hemoptysis Cardiac: + edema, No chest pain, No orthopnea, No PND, No claudication Physical Exam Vital Signs Last Vital Signs Documentation Date Time Temp Pulse Resp B/P (MAP) Pulse Ox O2 Delivery O2 Flow Rate FiO2 11/08/17 07:53 37.4 103 22 134/89 (104) 96 11/08/17 04:00 Room Air Nasal Cannula 11/07/17 04:00 2.0 Physical Exam Constitutional: General Apperance: well-nourished, well-developed, obese Level of Distress: NAD, acutely ill, chronically ill Psychiatric: Mental Status: active & alert, normal mood, normal affect Orientation: oriented except where noted, to time, to place, to person Memory: recent memory normal, remote memory normal Head: normocephalic, atraumatic Eyes: EOM: EOMI Neck: supple, trachea midline Lungs: Respiratory effort: no dyspnea Auscultation: no rales/crackles, no rhonchi, expiratory wheezing Cardiovascular: Heart Auscultation: RRR, no murmurs, tachycardia Peripheral Pulses: Dorsalis Pedis Pulse: normal on the left Abdomen: Bowel Sounds: normal Inspection & Palpation: soft, non-distended, no tenderness, guarding & rebound, no masses Extremities: edema (1-2+ pretibial edema) Neurologic: Cranial Nerves: grossly intact Assessment and Plan Assessment and Plan IMPRESSION: 1. Ischemic cardiomyopathy with acute decompensated systolic heart failure. -Volume status improving with hemodialysis 2. Nonsustained ventricular tachycardia -No recurrence 3. B-cell lymphoma - 3 rounds of chemotherapy thus far. . 4. Acute renal failure with oliguria, now on HD, currently receiving session #2 5. Hypotension on admission improving with history of long-standing hypertension 6. Coronary artery disease with history of LILLIAN to the ramus intermedius in 2014 , non obstructive disease noted in 2016. 7. Diabetes 8. Hyperlipidemia. 9. Anemia - hgb stable RECOMMENDATIONS: Titrate carvedilol to 6.25mg BID today.Give 3.125mg x1 now. (previous outpatient dose 25mg BID) No MERY or ARB at this time due to ARF. HD today with volume removal as tolerated. Continue to monitor telemetry. Laboratory Results Last 24 Hours Test 11/07/17 11:08 11/07/17 11:09 11/07/17 11:25 11/07/17 16:27 Bedside Glucose 67 mg/dl 72 mg/dl 235 mg/dl Hepatitis C Antibody NEG Test 11/07/17 20:31 11/08/17 05:43 11/08/17 06:35 Bedside Glucose 262 mg/dl 134 mg/dl Creatinine 4.64 mg/dl Est Creatinine Clear Calc Drug Dose 16.6 ml/min Estimated GFR () 11.4 Estimated GFR (Non- 9.8
[2017-11-08] MEDS ORDERED: CARVEDILOL 3.125 MG TAB PO ONE (11:00)
[2017-11-08] MEDS: LEVALBUTEROL 1.25MG/3ML NEB INH PRN (11:14)
--- NOTE | 2017-11-08 13:13 | Progress Note ---
Subjective Date of Service: Nov 08, 2017. Subjective Pt evaluation today including: conversation w/ patient, physical exam, lab review, review of studies, review of inpatient medication list Saw/examined the patient in room 215 +agitated, wanting to go home today, dialysis delayed until this afternoon States she will sign out AMA if she doesn't get discharged today Breathing is stable, though she is wheezing HR and BP elevated after she became agitated Problem List Medical Problems: (1) Acute bronchitis Status: Acute (2) Acute chest pain Status: Acute (3) Anemia Status: Acute (4) Anemia Status: Acute (5) Elevated troponin Status: Acute (6) Enlarged lymph node Status: Acute (7) Hypomagnesemia Status: Acute (8) Hypoxia Status: Acute (9) Neck pain on right side Status: Acute (10) Pulmonary edema Status: Acute Review of Systems Constitutional: No fever, No chills Respiratory: + cough, + wheezing, No sputum, No shortness of breath Cardiac: No chest pain, No edema, No palpitations Medications Current Inpatient Medications Medications (Trade) Dose Ordered Sig/Chantale Route Start Time Stop Time Status Last Admin Dose Admin Senna/Docusate Sodium (Senokot S Tab) 1 tab QAM PO 11/02/17 09:00 12/02/17 08:59 11/07/17 10:49 1 TAB Aspirin (Ecotrin Tab) 81 mg DAILY PO 11/02/17 09:00 12/02/17 08:59 11/08/17 07:38 81 MG Clopidogrel Bisulfate (plAVix TAB) 75 mg QAM PO 11/02/17 09:00 12/02/17 08:59 11/08/17 07:39 75 MG Gabapentin (Neurontin Cap) 300 mg TID PO 11/02/17 09:00 12/02/17 08:59 11/08/17 07:39 300 MG Lorazepam (Ativan Tab) 0.5 mg Q6H PRN PO 11/02/17 00:15 12/02/17 00:14 11/06/17 03:48 0.5 MG Trazodone HCl (Desyrel Tab) 50 mg HS PO 11/02/17 21:00 12/02/17 20:59 11/07/17 21:56 50 MG Venlafaxine HCl (effeXOR EXTENDED REL CAP) 37.5 mg DAILY PO 11/02/17 09:00 12/02/17 08:59 11/08/17 07:37 37.5 MG Venlafaxine HCl (effeXOR EXTENDED REL CAP) 150 mg DAILY PO 11/02/17 09:00 12/02/17 08:59 11/08/17 07:37 150 MG Buspirone HCl (Buspar Tab) 20 mg BID PO 11/02/17 09:00 12/02/17 08:59 11/08/17 07:39 20 MG Miscellaneous Information (Order Awaiting Action) 1 ea QS N/A 11/02/17 08:00 12/02/17 07:59 Acetaminophen (Tylenol Tab) 650 mg Q4H PRN PO 11/02/17 00:15 12/02/17 00:14 11/05/17 19:41 650 MG Glucose (Glucose 40% Gel) 15-30 GRAMS 15 GRAMS... UD PRN PO 11/02/17 01:00 12/02/17 00:59 Glucose (Glucose Chew Tab) 4-8 Tablets 4 Tabl... UD PRN PO 11/02/17 01:00 12/02/17 00:59 11/03/17 06:35 4 TABS Dextrose (Dextrose 50% 50ML Syringe) 25-50ML OF 50% DW IV FOR... UD PRN IV 11/02/17 01:00 12/02/17 00:59 Glucagon (Glucagon Inj) 1 mg UD PRN SQ 11/02/17 01:00 12/02/17 00:59 Levalbuterol (Xopenex 1.25MG/ 3ML Neb) 1.25 mg Q6R PRN INH 11/02/17 14:30 12/02/17 14:29 11/08/17 11:14 1.25 MG Ondansetron HCl (Zofran Inj) 4 mg Q6H PRN IV 11/02/17 17:15 12/02/17 17:14 11/02/17 17:17 4 MG Promethazine HCl (Phenergan Tab) 25 mg Q6H PRN PO 11/02/17 17:15 12/02/17 17:14 Miscellaneous Information (Consult Glycemic Management Pharmacy) 1 ea UD PRN N/A 11/03/17 07:20 12/03/17 07:19 Hydromorphone HCl (Dilaudid Tab) 2 mg Q4H PRN PO 11/03/17 12:15 11/17/17 12:14 11/07/17 04:48 2 MG Heparin Sodium (Porcine) (Heparin 100 Unit/ml 5ml Flush) 5 ml PRN PRN IV 11/06/17 03:00 12/06/17 02:59 11/07/17 15:32 5 ML Insulin Aspart (novoLOG ASPART) SLIDING SCALE If C... AC SC 11/07/17 11:00 12/07/17 10:59 11/08/17 11:45 3 UNITS Insulin Aspart (novoLOG ASPART) SLIDING SCALE If C... HS SC 11/07/17 21:00 12/07/17 20:59 11/07/17 22:09 3 UNITS Insulin Glargine (Lantus Solostar Pen) SEE PROTOCOL TEXT HS SC 11/07/17 21:00 12/07/17 20:59 11/07/17 22:08 8 UNITS Carvedilol (Coreg Tab) 6.25 mg BID PO 11/08/17 21:00 12/08/17 20:59 Objective Vital Signs Date Time Temp Pulse Resp B/P (MAP) Pulse Ox O2 Delivery O2 Flow Rate FiO2 11/08/17 11:58 37.0 114 22 137/93 (108) 96 11/08/17 11:14 106 16 97 Room Air 11/08/17 08:00 Room Air 11/08/17 07:53 37.4 103 22 134/89 (104) 96 11/08/17 04:00 Room Air Nasal Cannula 11/08/17 03:05 37.8 111 22 125/83 (97) 94 Room Air 11/08/17 00:02 36.6 103 21 115/69 (84) 94 Room Air 11/08/17 00:00 Room Air Nasal Cannula 11/07/17 20:37 37.1 99 20 115/78 (90) 95 Room Air 11/07/17 20:00 Room Air Nasal Cannula 11/07/17 16:00 Room Air 11/07/17 15:42 36.7 109 18 141/70 (93) 96 Physical Exam General Appearance: no apparent distress Respiratory/Chest: no respiratory distress, no accessory muscle use, + decreased breath sounds, + wheezing Cardiovascular: no edema, no murmur, + tachycardia Extremities: normal inspection, no pedal edema Neurologic/Psychiatric: + depressed affect Laboratory Results Last 24 Hours Test 11/07/17 16:27 11/07/17 20:31 11/08/17 05:43 11/08/17 06:35 Bedside Glucose 235 mg/dl 262 mg/dl 134 mg/dl Creatinine 4.64 mg/dl Est Creatinine Clear Calc Drug Dose 16.6 ml/min Estimated GFR () 11.4 Estimated GFR (Non- 9.8 Test 11/08/17 11:10 Bedside Glucose 130 mg/dl Assessment and Plan This is a 57 year old female with a PMH of large B cell lymphoma and ongoing chemotherapy, hx. of chemo-induced neutropenia, pancytopenia, CAD s/p stenting, ischemic cardiomyopathy, systolic CHF, DM2, HTN, HLD Acute Kidney Injury Acute Tubular Necrosis 11/08 our plan is to have hemodialysis today on 11/08 discharge with Coreg dose of 6.25mg BID outpatient cardiology f/u outpatient dialysis on 11/07 plan for HD on Friday, 11/08 dialysis is set up for in [place] as outpatient plan for d/c in AM b-isael changed back to Coreg as blood pressure allows it 11/06 creatinine remains >5 appreciate nephrology input will need further dialysis as per nephro 1 creatinine remains elevated appreciate nephrology input will receive second round of HD today fluid removal with HD monitor BP and electrolytes / creatinine went from 1.0 at baseline creatinine increased to >3 to >5 appreciate nephrology input due to significant oliguria, urgent dialysis needed vascular surgery placed PermCath received HD today; will need HD x3 days fluid overload is an issue, monitor and fluid removal with HD Paroxysmal Ventricular Tachycardia / appreciate cardiology input Coreg has been changed to Metoprolol, will continue this, and monitor BP /3 appreciate cardiology input Coreg changed to Lopressor due to blood pressure issues 1/2 appreciate cardiology input b-isael (Coreg) restarted monitor for hypotension with dialysis Reduction LV Function, EF 25-30% Hx. of Ischemic Cardiomyopathy Chronic Systolic CHF 11/06 monitor for fluid overload receiving HD for fluid management and fluid removal continue b-isael no MERY-I/ARB as of yet due to kidney injury 11/05 Coreg changed to Metoprolol 1/ worsening LV function TTE shows an LVEF of 25-30%, severe global hypokinesis appears to be worsening cardiomyopathy; chemo-induced vs. non-ischemic stress cardiomyopathy restarted Coreg monitor BP and start MERY-I or ARB as tolerated Elevated Troponin in the setting of CAD mild elevation of troponin likely multifactorial, including kidney injury, significant reduction in LVEF, and paroxysmal NSVT no chest pain; has had a stent placed continue aspirin, Plavix, statin, b-isael Pancytopenia secondary to Large B Cell Lymphoma appreciate oncology input received Neulasta, which is causing WBC to be elevated; no sign of infection noted - continue Zosyn, cultures pending anemia noted; s/p one unit pRBC - Hgb 8.6; monitor platelets are stable, no need for transfusion hold chemo as per oncology for now Generalized Bone Pain secondary to lymphoma and Neulasta use pain controlled with medications DM2 insulin sliding scale glycemic control consulted DVT ppx Lovenox FULL CODE
[2017-11-08] MEDS ORDERED: CRG625 PO (13:20)
--- NOTE | 2017-11-08 13:29 | Discharge Instructions ---
Discharge Instructions Date of Service Nov 08, 2017. Admission Reason for Admission: Intractable Pain Discharge Discharge Diagnosis / Problem: Bone Pain, Acute Kidney Disesae on dialysis, cardiomyopathy Discharge Goals Goal(s): Decrease discomfort, Improve function, Diagnostic testing, Therapeutic intervention Activity Recommendations Activity Limitations: resume your previous activity . Instructions / Follow-Up Instructions / Follow-Up Please follow-up with Dr. Murray - you will get a phone call with a date and time You will need dialysis on [id number] Your dose of Coreg has changed - this must be adjusted as an outpatient - follow -up with cardiology, nephrology, primary care physician Current Hospital Diet Patient's current hospital diet: Diabetes Type 2 Diet, AHA Diet (Heart Healthy) Discharge Diet Recommended Diet: AHA Diet (Heart Healthy), Diabetes Type 2 Diet, Renal Diet Procedures Procedures Performed: Insertion of Perm Catheter, Right Internal Jugular Approach, Ultrasound Localization of Right Internal Jugular Vein, Fluoroscopy for positioning. Pending Studies Studies pending at discharge: no Laboratory Results Hemoglobin A1c Test 09/11/17 04:11 Range/Units Estimated Average Glucose 292 mg/dl Hemoglobin A1c 11.8 H 4.5-5.6 % Medical Emergencies . Who to Call and When: Medical Emergencies: If at any time you feel your situation is an emergency, please call 911 immediately. . Non-Emergent Contact Non-Emergency issues call your: Primary Care Provider, Emergency Dispatch Operator, Crystalizer Tender, Oncologist . . "Provider Documentation" section prepared by Matilde Delgadillo. . VTE Core Measure Inpt VTE Proph given/why not?: Enoxaparin (Lovenox)SQ
--- NOTE | 2017-11-08 13:40 | Discharge Summary ---
Discharge Summary Date of Service Nov 08, 2017. Discharge Summary Admission Date: Nov 02, 2017 at 00:04 Discharge Date: Nov 08, 2017 Discharge Disposition: Home Principal Diagnosis: B Cell Lymphoma Ischemic Cardiomyopathy Acute Decompensated Systolic CHF Acute Tubular Necrosis; Acute Kidney Injury now on hemodialysis Episode of NSVT Consultations: Oncology-Dobbs Nephrology-Oncu Medication Reconciliation New Medications: Carvedilol (Carvedilol) 6.25 Mg Tab 6.25 MG PO BID for 15 Days, #30 TAB Continued Medications: Albuterol Hfa (Ventolin Hfa) 200 Puffs/39502 Mcg Aers 1-2 PUFFS INH Q4 PRN for SOB/Wheezing Amlodipine (Norvasc) 2.5 Mg Tab 2.5 MG PO DAILY, TAB Ascorbic Acid (Vitamin C) 500 Mg Tab 500 MG PO TID Aspirin (Aspirin 81) 81 Mg Tab 81 MG PO DAILY Atorvastatin Calcium (Lipitor) 80 Mg Tab 80 MG PO DAILY Buspirone Hcl (Buspirone Hcl) 10 Mg Tab 20 MG PO BID, TAB 1 Refill Clopidogrel Bisulfate (Clopidogrel) 75 Mg Tab 75 MG PO QAM, #90 TAB 3 Refills Fenofibrate Micronized (Tricor) 67 Mg Cap 67 MG PO DAILY Gabapentin (Neurontin) 300 Mg Cap 300 MG PO TID Glipizide (Glucotrol) 10 Mg Tab 20 TAB PO HS Glipizide (Glucotrol) 10 Mg Tab 10 MG PO QAM, TAB Home O2 Therapy (Oxygen) Gas 2 LITERS NA PRN, BTL Hydrocodone/Acetaminophen 5MG/325MG (Locke 5MG/325MG) Tab 2 TABLET PO Q6 PRN for Pain Insulin Aspart (Novolog Flexpen) 100 Units/Ml Inj 1 DOSE SC TIDM TAKE NOVOLOG THREE TIMES A DAY WITH MEALS BASED ON BSG BSG= 120-130 = 0 131-140 = 6 UNITS 141-150 = 12 UNITS AND SO ON Insulin Detemir (Levemir Flextouch) 100 Unit/Ml Inj 10 UNITS SC HS Lorazepam (Lorazepam) 0.5 Mg Tab 0.5 MG PO Q6H PRN for Anxiety/Agitation, TAB Metformin Hcl (Glucophage) 500 Mg Tab 1000 MG PO BID, TAB Nitroglycerin (Nitrostat) 0.4 Mg Tab 0.4 MG UT UD PRN for Chest Pain PLACE ONE TAB UNDER THE TOUNGUE EVERY 5 MINUTES NEEDED FOR CHEST PAIN. TAKE NO MORE THAN 3 TABS. IF CHEST PAIN IS NOT RELIEVED BY 3 TABS CALL 911. Trazodone Hcl (Desyrel) 50 Mg Tab 50 MG PO HS, TAB Venlafaxine Hcl (Effexor Xr) 150 Mg Cap 1 CAP PO DAILY, CAP 1 Refill 150mg + 37.5 mg to equal 187.5 daily Venlafaxine Hcl (Effexor Xr) 37.5 Mg Cap 1 CAP PO DAILY, CAP 3 Refills take with the 150mg to equal 187.5 mg Discontinued Medications: Carvedilol (Coreg) 25 Mg Tab 25 MG PO BID, TAB 1 Refill Hydroxyzine Pamoate (Vistaril) 25 Mg Cap 25 MG PO Q6H PRN for Anxiety/Agitation, CAP 1 Refill Admission Information HPI (per Admitting provider): 57 year old female with history of B cell Lymphoma on chemotherapy, CAD s/p Stent, CHF Systolic EF 45%, DM 2, HTN, and other problems noted below presenting with severe generalized pain. Follows with Dr. Murray for PCP and Dr.N. Dobbs for Oncology. Patient states she finished her 3rd round of chemotherapy (R-CEOP) with neulasta around 2 weeks ago. For the past 3-4 days, she has been having progressive generalized body aches, nausea and poor appetite. Patient states she usually gets these symptoms after chemo but presently, symptoms appear to be somewhat more severe. Denies fever/chills, headache, sore throat, chest pain, dyspnea, cough, abdominal pain, changes with BM or urination. At the ER, patient was received afebrile, HR 106, BP 112/64. CXR: no signs of pneumonia. Trop 0.07, EKG no signs of acute infarct/ischemia. She was given Dilaudid and Zofran. On exam, patient appears somewhat drowsy but comfortable. States pain is somewhat improved compared to admission. Denies any other active symptoms. Physical Exam (per Admitting): General Appearance: WD/WN, no apparent distress Head: normocephalic, atraumatic, + pertinent finding ((+) alopecia) Eyes: normal inspection, PERRL, EOMI, sclerae normal ENT: hearing grossly normal, pharynx normal, + pertinent finding (dry oral mucosa, no thrush) Neck: supple, no adenopathy, thyroid normal, no JVD, trachea midline Respiratory/Chest: chest non-tender, lungs clear, normal breath sounds, no respiratory distress, no accessory muscle use, + pertinent finding (port on the left chest wall- no signs of infection) Cardiovascular: no JVD, no murmur, + tachycardia (mild), + pertinent finding (trace bilateral lower leg edema) Abdomen/GI: normal bowel sounds, non tender, soft Back: normal inspection, no CVA tenderness Extremities/Musculoskelatal: + pertinent finding (trace bilateral lower leg edema, no warmth/ertyhema/tenderness) Neurologic/Psych: nurse leader II-XII nml as tested, no motor/sensory deficits, normal mood/affect, oriented x 3, + pertinent finding (mild drowsiness) Skin: normal color, warm/dry, no rash Lymphatic: no adenopathy Hospital Course This is a 57 year old female with a PMH of large B cell lymphoma and ongoing chemotherapy, hx. of chemo-induced neutropenia, pancytopenia, CAD s/p stenting, ischemic cardiomyopathy, systolic CHF, DM2, HTN, HLD Acute Kidney Injury Acute Tubular Necrosis 11/08 our plan is to have hemodialysis today on 11/08 discharge with Coreg dose of 6.25mg BID outpatient cardiology f/u outpatient dialysis on 11/07 plan for HD on Friday, 11/08 dialysis is set up for in [place] as outpatient plan for d/c in AM b-isael changed back to Coreg as blood pressure allows it 11/06 creatinine remains >5 appreciate nephrology input will need further dialysis as per nephro 11/05 creatinine remains elevated appreciate nephrology input will receive second round of HD today fluid removal with HD monitor BP and electrolytes 11/04 creatinine went from 1.0 at baseline creatinine increased to >3 to >5 appreciate nephrology input due to significant oliguria, urgent dialysis needed vascular surgery placed PermCath received HD today; will need HD x3 days fluid overload is an issue, monitor and fluid removal with HD Paroxysmal Ventricular Tachycardia 11/06 appreciate cardiology input Coreg has been changed to Metoprolol, will continue this, and monitor BP / appreciate cardiology input Coreg changed to Lopressor due to blood pressure issues 11/04 appreciate cardiology input b-isael (Coreg) restarted monitor for hypotension with dialysis Reduction LV Function, EF 25-30% Hx. of Ischemic Cardiomyopathy Chronic Systolic CHF 11/06 monitor for fluid overload receiving HD for fluid management and fluid removal continue b-isael no MERY-I/ARB as of yet due to kidney injury 11/05 Coreg changed to Metoprolol 1 worsening LV function TTE shows an LVEF of 25-30%, severe global hypokinesis appears to be worsening cardiomyopathy; chemo-induced vs. non-ischemic stress cardiomyopathy restarted Coreg monitor BP and start MERY-I or ARB as tolerated Elevated Troponin in the setting of CAD mild elevation of troponin likely multifactorial, including kidney injury, significant reduction in LVEF, and paroxysmal NSVT no chest pain; has had a stent placed continue aspirin, Plavix, statin, b-isael Pancytopenia secondary to Large B Cell Lymphoma appreciate oncology input received Neulasta, which is causing WBC to be elevated; no sign of infection noted - continue Zosyn, cultures pending anemia noted; s/p one unit pRBC - Hgb 8.6; monitor platelets are stable, no need for transfusion hold chemo as per oncology for now Generalized Bone Pain secondary to lymphoma and Neulasta use pain controlled with medications DM2 insulin sliding scale glycemic control consulted DVT ppx Lovenox FULL CODE Total time spent on discharge = 50 minutes This includes examination of the patient, discharge planning, medication reconciliation, and communication with other providers. Discharge Instructions Please follow-up with Dr. Murray - you will get a phone call with a date and time You will need dialysis on [id number] Your dose of Coreg has changed - this must be adjusted as an outpatient - follow -up with cardiology, nephrology, primary care physician
[2017-11-08] MEDS ORDERED: CARVEDILOL 6.25 MG TAB PO SCH (21:00)
== END 2017-11-08 19:45 | disposition home or self-care (01) | DRG 683 ==
LOC: C.EDB 21:32 → C.2T 11-02 00:04 → ENRESERV 11-02 00:15
PROVIDERS: ADMIT Internal Medicine; ATTEND Family Medicine
PROC: 05HM33Z Insertion of Infusion Device into Right Internal Jugular Vein, Percutaneous Approach (ICD-10-PCS; principal; 2017-11-04 11:45)
DX: N17.0 Acute kidney failure with tubular necrosis (principal); C83.31 Diffuse large B-cell lymphoma, lymph nodes of head, face, and neck; I50.20 Unspecified systolic (congestive) heart failure; I47.2 Ventricular tachycardia; I25.10 Atherosclerotic heart disease of native coronary artery without angina pectoris; N18.3 Chronic kidney disease, stage 3 (moderate); E11.9 Type 2 diabetes mellitus without complications; E78.5 Hyperlipidemia, unspecified; G47.33 Obstructive sleep apnea (adult) (pediatric); I12.9 Hypertensive chronic kidney disease with stage 1 through stage 4 chronic kidney disease, or unspecified chronic kidney disease; F60.5 Obsessive-compulsive personality disorder; E83.42 Hypomagnesemia; A49.02 Methicillin resistant Staphylococcus aureus infection, unspecified site; D64.9 Anemia, unspecified; R52 Pain, unspecified; I25.5 Ischemic cardiomyopathy; Z87.01 Personal history of pneumonia (recurrent); I25.2 Old myocardial infarction; Z79.4 Long term (current) use of insulin; Z82.49 Family history of ischemic heart disease and other diseases of the circulatory system

== ENCOUNTER 2017-11-14 01:58 | Inpatient (IN) | payer OTHER ==
[~2017-11-14] VITALS: Ht 165.1 cm; Wt 94.6 kg
[2017-11-14] VITALS (21 sets, daily range): BP systolic 112–151; BP diastolic 64–98; PULSE 100–126; TEMP 36.5–37; O2SAT 95–100; Ht 165.1 cm; Wt 94.6 kg
[~2017-11-14 01:58] MED LIST changes: -CARV25TA2 PO; +CRG625 PO; +GLIP10TA3 PO; -HYDR25CA PO; -LEVO-459 PO; +NVLGIPEN SC; +OXGN
[2017-11-14] MEDS ORDERED: FUROSEMIDE INJ 40 MG in SYRINGE 0 ML IV STA (04:27)
[2017-11-14] MEDS ORDERED: CARVEDILOL 12.5 MG TAB PO STA (04:27)
[2017-11-14] MEDS ORDERED: DEXTROSE 50% 50 ML SYR IV PRN (04:30)
[2017-11-14] MEDS ORDERED: GLUCOSE 40% GEL 15 GM TUBE PO PRN (04:30)
[2017-11-14] MEDS ORDERED: GLUCAGON FOR INJ 1 MG VIAL SQ PRN (04:30)
[2017-11-14] MEDS ORDERED: LORAZEPAM 0.5 MG TAB PO PRN (04:30)
[2017-11-14] MEDS ORDERED: NITROGLYCERIN 0.4 MG SL PER TAB CHARGE UT PRN (04:30)
[2017-11-14] MEDS ORDERED: GLUCOSE 10 TABS/TUBE PO PRN (04:30)
[2017-11-14 04:53] LABS: BASO % 0.4 %; BASO ABS # 0.05 K/uL (0-0.2); EOS % 0.3 %; EOS ABS # 0.03 K/uL (0-0.5); HEMOGLOBIN 8.4 g/dL (12.0-16.0); IG# 0.13 K/uL (0.00-0.02); LYMPH % 10.9 %; LYMPH ABS # 1.25 K/uL (1.2-3.4); MEAN CELL VOLUME 88.2 fL (80-100); MEAN CORPUSCULAR HEMOGLOBIN 27.5 pg (25-34); MEAN PLATELET VOLUME 8.9 fL (7.4-10.4); MONO % 10.9 %; MONO ABS # 1.25 K/uL (0.11-0.59); NEUT % 76.4 %; NEUT ABS # 8.78 K/uL (1.4-6.5); PLATELET COUNT 542 K/uL (130-400); RED CELL DISTRIBUTION WIDTH SD 54.6 fL (36.4-46.3); WHITE BLOOD COUNT 11.49 K/uL (4.8-10.8)
[2017-11-14] MEDS ORDERED: PHARMACY GLYCEMIC MGMT CONSULT PRN (05:06)
[2017-11-14] MEDS ORDERED: HEPARIN 25,000 UNIT/500ML D5W 500 ML IV PRN (05:15)
[2017-11-14] MEDS ORDERED: HEPARIN IV BOLUS 6,000 UNIT in SYRINGE 0 ML IV ONE (05:15)
[2017-11-14 05:19] LABS: MEAN CORPUSCULAR HGB CONC 31.1 g/dl (32-36)
[2017-11-14 05:45] LABS: ALBUMIN 2.5 gm/dl (3.4-5.0); CALCIUM 8.4 mg/dl (8.5-10.1); CREATININE 2.33 mg/dl (0.60-1.20); POTASSIUM 3.9 mmol/L (3.5-5.1); TOTAL PROTEIN 5.9 gm/dl (6.4-8.2)
[2017-11-14 05:49] LABS: INR 1.2 (0.9-1.1); PTT PATIENT 26.7 SECONDS (21.0-31.0)
[2017-11-14 05:53] LABS: INFLUENZA B ANTIGEN Neg for Influ B (NEG)
--- NOTE | 2017-11-14 06:29 | History and Physical ---
History & Physical Date & Time of Service: Nov 14, 2017 at 06:19 Chief Complaint: Dyspnea, On Dialysis Primary Care Physician: Orion Murray D.O. History of Present Illness Source: patient 57 year old F on chemotherapy for lymphoma and renal failure requiring dialysis Friday, Friday, Friday via jugular catheter who presented to [facility] for shortness of breath/tachycardia and transferred to [facility] because she follows [facility] affiliated doctors at [place], [place] and also because [facility] does not have dialysis services. In [facility], patient was tachycardic to 120 and had elevated D-Dimer, she had a CT scan without contrast which found 1) Multifocal bilateral patchy airspace disease is identified suspicious for multifocal pneumonia 2) small pericardial effusion Patient was given Levaquin 500 mg as differentials considered was bronchitis vs pneumonia. Also other differential of acute systolic CHF or pulmonary embolism Patient arrived to [facility] still tachycardic in the 120s, breathing and speaking on room air, EKG sinus tachycardia. Patient was ordered carvedilol 12.5 mg x 1 and Lasix 40 mg IV. IV heparin ordered in case patient has pulmonary embolism. Ultrasound of lower extremities without DVT. Prior to initiation of heparin drip, patient's heart rate decreased to 110 bpm while sleeping Other History: Patient had recently been admitted to [facility] on 11/02/17 for generalized pain with fever and tachycardia, evaluated by cardiology for the tachycardia and fluid overload, no source of bacterial infection identified on microbiology labs, and discharged on 11/08/17 Past Medical/Surgical History Medical Problems: (1) CAD (coronary artery disease) Permanent Comment: s/p cath 04/11/2015 - drug eluting stent to the proximal ramus intermedius Status: Chronic (2) Chronic systolic heart failure Status: Chronic (3) CKD (chronic kidney disease), stage III Status: Chronic (4) DM type 2 (diabetes mellitus, type 2) Status: Chronic (5) Dyslipidemia Status: Chronic (6) Heart disease Status: Chronic (7) History of migraine Status: Chronic (8) Hypertension Status: Chronic (9) Ischemic cardiomyopathy Status: Chronic (10) Myocardial infarction Status: Resolved (11) OCD (obsessive compulsive disorder) Status: Chronic (12) DANGELO (obstructive sleep apnea) Status: Chronic Surgical Problems: (1) S/P cardiac cath Permanent Comment: - drug eluting stent to the proximal ramus intermedius Status: Chronic Family History Heart disease Social History Smoking Status: Former Smoker Drug Use: none Marital Status: Multi-Drug Resistant Organisms History of MDRO: Yes Type of MDRO: MRSA Allergies Coded Allergies: Adhesives (Verified Allergy, Unknown, RASH, 11/01/17) Home Medications Scheduled Amlodipine (Norvasc), 2.5 MG PO DAILY Ascorbic Acid (Vitamin C), 500 MG PO TID Aspirin (Aspirin 81), 81 MG PO DAILY Atorvastatin (Lipitor), 80 MG PO DAILY Buspirone Hcl (Buspirone Hcl), 20 MG PO BID Carvedilol (Carvedilol), 6.25 MG PO BID Clopidogrel Bisulfate (Clopidogrel), 75 MG PO QAM Fenofibrate Micronized (Tricor), 67 MG PO DAILY Gabapentin (Neurontin), 300 MG PO TID Glipizide (Glucotrol), 20 TAB PO HS Glipizide (Glucotrol), 10 MG PO QAM Home O2 Therapy (Oxygen), 2 LITERS NA PRN Insulin Aspart (Novolog Flexpen), 1 DOSE SC TIDM Insulin Detemir (Levemir Flextouch), 10 UNITS SC HS Metformin Hcl (Glucophage), 1,000 MG PO BID Trazodone Hcl (Desyrel), 50 MG PO HS Venlafaxine Hcl (Effexor Xr), 1 CAP PO DAILY Venlafaxine Hcl (Effexor Xr), 1 CAP PO DAILY Scheduled PRN Albuterol Hfa (Ventolin Hfa), 1-2 PUFFS INH Q4 PRN for SOB/Wheezing Hydrocodone/Acetaminophen 5MG/325MG (Sherman 5MG/325MG), 2 TABLET PO Q6 PRN for Pain Lorazepam (Lorazepam), 0.5 MG PO Q6H PRN for Anxiety/Agitation Nitroglycerin (Nitrostat), 0.4 MG UT UD PRN for Chest Pain Physical Exam Vital Signs Date Time Temp Pulse Resp B/P (MAP) Pulse Ox O2 Delivery O2 Flow Rate FiO2 11/14/17 04:24 36.9 126 22 151/98 96 Room Air Diagnostics Laboratory Results Results Past 24 Hours Test 11/14/17 04:02 1/12/18 04:15 11/14/17 04:36 11/14/17 05:28 Range/Units Influenza Type A Antigen Neg for Influ A NEG Influenza Type B Antigen Neg for Influ B NEG White Blood Count 11.49 4.8-10.8 K/uL Red Blood Count 3.06 4.2-5.4 M/uL Hemoglobin 8.4 12.0-16.0 g/dL Hematocrit 27.0 37-47 % Mean Corpuscular Volume 88.2 80-100 fL Mean Corpuscular Hemoglobin 27.5 25-34 pg Mean Corpuscular Hemoglobin Concent 31.1 32-36 g/dl Platelet Count 542 130-400 K/uL Mean Platelet Volume 8.9 7.4-10.4 fL Neutrophils (%) (Auto) 76.4 % Lymphocytes (%) (Auto) 10.9 % Monocytes (%) (Auto) 10.9 % Eosinophils (%) (Auto) 0.3 % Basophils (%) (Auto) 0.4 % Neutrophils # (Auto) 8.78 1.4-6.5 K/uL Lymphocytes # (Auto) 1.25 1.2-3.4 K/uL Monocytes # (Auto) 1.25 0.11-0.59 K/uL Eosinophils # (Auto) 0.03 0-0.5 K/uL Basophils # (Auto) 0.05 0-0.2 K/uL RDW Standard Deviation 54.6 36.4-46.3 fL RDW Coefficient of Variation 17.0 11.5-14.5 % Immature Granulocyte % (Auto) 1.1 % Immature Granulocyte # (Auto) 0.13 0.00-0.02 K/uL Hypochromasia PRESENT Sodium Level 137 136-145 mmol/L Potassium Level 3.9 3.5-5.1 mmol/L Chloride Level 105 98-107 mmol/L Carbon Dioxide Level 24 21-32 mmol/L Anion Gap 8.0 3-11 mmol/L Blood Urea Nitrogen 20 7-18 mg/dl Creatinine 2.33 0.60-1.20 mg/dl Est Creatinine Clear Calc Drug Dose 31.5 ml/min Estimated GFR () 26.2 Estimated GFR (Non- 22.6 BUN/Creatinine Ratio 8.5 10-20 Random Glucose 236 70-99 mg/dl Lactic Acid Level 1.2 0.4-2.0 mmol/L Calcium Level 8.4 8.5-10.1 mg/dl Total Bilirubin 0.4 0.2-1 mg/dl Aspartate Amino Transf (AST/SGOT) 15 15-37 U/L Alanine Aminotransferase (ALT/SGPT) 16 12-78 U/L Alkaline Phosphatase 85 45-117 U/L Troponin I 0.132 0-0.045 ng/ml Pro-B-Type Natriuretic Peptide 36156 0-900 pg/ml Total Protein 5.9 6.4-8.2 gm/dl Albumin 2.5 3.4-5.0 gm/dl Globulin 3.4 2.5-4.0 gm/dl Albumin/Globulin Ratio 0.7 0.9-2 Procalcitonin 0.19 0-0.5 ng/ml Thyroid Stimulating Hormone (TSH) 2.410 0.300-4.500 uIu/ml Prothrombin Time 12.3 9.0-12.0 SECONDS Prothromb Time International Ratio 1.2 0.9-1.1 Activated Partial Thromboplast Time 26.7 21.0-31.0 SECONDS Partial Thromboplastin Ratio 1.0 Microbiology Results 11/14/17 Blood Culture, Received Pending 11/14/17 Blood Culture, Received Pending Impression Assessment and Plan tachycardia/shortness of breath may be from multiple differentials -rule out pulmonary embolism: elevated D-Dimer may be due to history of malignancy rather than pulmonary embolism. CT imaging performed in [facility] was without IV contrast likely to avoid contrast toxicity due to kidney disease. Ultrasound of lower extremities is negative. will order V/Q scan to rule out pulmonary embolism. Continue IV heparin for now -possible pneumonia -Levaquin 500 mg was given at [facility]. As per pharmacy, patient to get additional 250 mg today to ensure that a total of 750 mg loading dose of Levaquin for pneumonia to be given, before 500 mg every 48 hours. blood cultures drawn. however, procalcitonin level of 0.19 is not supportive of pneumonia or sepsis differential -small pericardial effusion noted on CT chest at [facility]; obtain echocardiogram -Heart failure, systolic, due to CAD S/p coronary artery stent placement. Recent echocardiogram on 11/04/17 EF 25 - 30% mild mitral and tricuspid regurgitation, mild pulmonary hypertension obtain echocardiogram on this admission BNP on this admission is 33,000 and troponin 0.132 Lasix 40 mg IV given x 1 on this admission, Carvedilol 12.5 mg given x 1 on this admission Cardiology consult requested on further management of tachycardia in the context of fluid overload -CKD stage 5 on Dialysis , Right internal Jugular perm cath placed on 11/04/[address] Low Renal Consult for dialysis management - Dialysis schedule is Friday, Friday, Friday -History of anemia Hemoglobin has been between 8 to 9 as baseline - also is on aspirin and plavix at home, with heparin IV for now, then monitor CBC for decrease in Hgb -TSH with in normal reference ranges of normal Diffuse large b-cell lymphoma, History of Chemotherapy-induced neutropenia on neulasta As per Dr. Ranjan Rubin outpatient note on 09/12/17, patient is on chemotherapy with Rituxan, Cytoxan, Etopisode, Vincristine, Prednisone, allopurinol (to prevent tumor lysis syndrome ) Hematology/Oncology consult requested Type 2 diabetes mellitus with hemoglobin a1c on 10/23/17 Hold metformin or glipizide, place on sliding scale insulin, is on detemir 5 units qhs at home Outpatient glucose levels reported to be as high as 410 in October 2017 especially as patient had received pre-chemotherapy treatments with steroids Pharmacy consult for glycemic control DVT ppx Disposition: Monitor on telemetry Follow up after hospital admission Patient saw primary care Dr. Orion Murray on 11/13/2017, will need follow up appointment after hospital course completed Level of Care Telemetry Advanced Directives Existing Living Will: No Existing Power of Bucket [place]: No Resuscitation Status FULL RESUSCITATION VTE Prophylaxis VTE Risk Assessment Done? Y/N: Yes Risk Level: Moderate
--- NOTE | 2017-11-14 06:44 | DIAGNOSTIC IMAGING REPORT ---
BILATERAL LOWER EXTREMITY VENOUS DOPPLER CLINICAL HISTORY: Calf swelling. COMPARISON STUDY: Bilateral lower extremity venous Doppler November 03, 2017. TECHNIQUE: Sonography of the deep venous system of the bilateral lower extremities was performed. Compression and augmentation were evaluated. FINDINGS: The bilateral common femoral, superficial femoral and popliteal veins were compressible. Augmentation was normal. Flow was shown within the deep calf vessels. IMPRESSION: No evidence of deep venous thrombus within the bilateral lower extremities. Electronically signed by: Efraín Khan M.D. 11/14/2017 6:43 AM Dictated Date/Time: 11/14/2017 6:43 AM
--- NOTE | 2017-11-14 07:42 | DIAGNOSTIC IMAGING REPORT ---
SINGLE VIEW CHEST CLINICAL HISTORY: Dyspnea. FINDINGS: An AP, portable, upright chest radiograph is compared to study dated 11/03/2017 and correlated with chest CT dated 09/09/2017. The examination is degraded by portable technique and patient rotation. A left subclavian central venous infusion port is unchanged in position. A right internal jugular central venous catheter is new from previous. The heart is enlarged and there is atherosclerotic calcification of the thoracic aorta. There is mild pulmonary vascular congestion. No airspace consolidation is identified. Trace pleural effusions are suspected. Bibasilar atelectasis is noted. No pneumothorax is seen. The skeletal structures are osteopenic. Fusion hardware is present at the thoracolumbar junction. IMPRESSION: 1. Cardiomegaly with evidence of congestive failure. 2. Suspect trace pleural effusions. Electronically signed by: Darren Oleary M.D. 11/14/2017 7:41 AM Dictated Date/Time: 11/14/2017 7:40 AM
[2017-11-14] MEDS ORDERED: LEVOFLOXACIN 250 MG TAB PO ONE (08:00)
[2017-11-14] MEDS: CLOPIDOGREL BISULFATE 75 MG TAB PO SCH (08:26)
[2017-11-14] MEDS: ASPIRIN 81 MG ECTAB PO SCH (08:26)
[2017-11-14] MEDS: ATORVASTATIN 40 MG TAB PO SCH (08:26)
[2017-11-14] MEDS: GABAPENTIN 300 MG CAP PO SCH ×3 (08:27→20:14)
[2017-11-14] MEDS: VENLAFAXINE HCL XR 150 MG CAPXR PO SCH (08:27)
[2017-11-14] MEDS: INSULIN ASPART 100 UNITS/ML 3 ML PEN SC SCH ×4 (08:35→20:12)
--- NOTE | 2017-11-14 09:26 | NEPHROLOGY CONSULTATION ---
DATE OF CONSULTATION: 11/14/2017 ATTENDING OF RECORD: Mary Kate Martinez MD. REASON FOR CONSULTATION: End-stage renal disease. HISTORY OF PRESENT ILLNESS: This is a 57-year-old female who recently was in the hospital around New Year with generalized pains and fluid overload with MARIKA after receiving a third round of chemo and noted to have echo changes of the heart. The patient's creatinine continued to worsen and required a tunneled dialysis catheter and initiation of dialysis. The patient has been on dialysis at the [place] dialysis unit for about 2 weeks. The patient's urination has improved and volume status has improved. The patient's next scheduled for a last round of chemo at the end of November. The patient last night had nausea, cough and sudden shortness of breath with tachycardia, went to [facility] and transferred to [facility]. The patient was given a dose of IV Lasix. There was a concern for possible PE and the patient was started on heparin drip. Dopplers of the lower extremities were negative. The patient resting comfortably now, but continues to be tachycardic in the low 100s. PAST MEDICAL HISTORY: Heart disease with a drug-eluting stent in 2014, end-stage renal disease, type 2 diabetes, hyperlipidemia, hypertension, obstructive sleep apnea, diffuse large b cell lymphoma. PAST SURGICAL HISTORY: Stent placement, tunnel dialysis catheter placement. FAMILY HISTORY: Significant for heart disease. SOCIAL HISTORY: Former smoker, no alcohol, no drugs. CURRENT MEDICATIONS: Levaquin 500 mg p.o. every 2 days, Coreg 6.25 mg p.o. b.i.d., trazodone 50 mg at night, aspirin 81 mg a day, Lipitor 80 mg a day, Plavix 75 mg a day, Neurontin 300 mg p.o. t.i.d., Effexor 150 mg daily, BuSpar 20 mg p.o. b.i.d., Lantus 10 units subQ daily, sliding scale insulin. REVIEW OF SYSTEMS: No fevers or chills. No weight loss. Positive fatigue. Positive shortness of breath which has improved. No chest pain. Positive nausea. Positive decreased appetite. No diarrhea or constipation. No dysuria. No rash or itching. No blurry vision. All other review of systems otherwise negative. PHYSICAL EXAMINATION: VITAL SIGNS: Temperature 37, pulse 108, respiratory rate is 20, blood pressure 148/95. Satting 100% on 2 liters. GENERAL: Awake, alert, and oriented x3. EYES: No scleral icterus. ENT: Moist mucous membranes. NECK: Supple. PULMONARY: Clear to auscultation. CARDIAC: Tachycardic. ABDOMEN: Bowel sounds positive, soft, nontender. EXTREMITIES: Mild edema. NEUROLOGICALLY: Nonfocal. DERMATOLOGIC: No rash or ulcers noted. LABORATORIES: White count is 11, H&H 8.4 and 27, platelet count is 542. Sodium is 137, potassium 3.9, chloride is 105, bicarbonate is 24, BUN is 20, creatinine is 2.3, glucose 236, lactic acid 1.2, calcium 8.4. Troponin 0.132. ProBNP 33,205, albumin is 2.5. TSH 2.4. UA with pH of 6, specific gravity of 1.007, 1+ protein, trace blood, trace leukocyte esterase, fluids negative, venous Dopplers were negative for DVTs. Chest x-ray shows cardiomegaly with evidence of congestive failure. IMPRESSION AND PLAN: 1. End-stage renal disease, plan on dialysis today on a 4K bath, given the fact that potassium is 3.9. Will attempt to remove 1 liter. The patient's volume status in my opinion is much improved compared to 2 weeks ago when patient was started on dialysis; however, patient does have an elevated ProBNP of 33,000 as well as signs of congestive failure on chest x-ray; however, satting 100% on 2 liters. We would like to only take off a liter for now given the fact that the patient is tachycardic and do not want to stress the heart more. Will re-evaluate tomorrow to see if she would benefit from another dialysis treatment tomorrow. 2. Anemia of renal failure. The patient has a large B cell lymphoma, no Procrit at this time, would transfuse blood p.r.n. 3. Shortness of breath. There is a concern for possible PE. Repeating an echo for possible concerns for pericardial effusion and is scheduled to go to a nuclear medicine this afternoon. The patient likely to receive more contrast in the setting of recent renal failure. There is a chance that the patient's kidney function may eventually recover; however, now barring the second admission with the need for contrast, the patient's kidney function may deteriorate more. However, the benefits outweigh the risks given the clinical presentation and the concern for possible PE. Appreciate consultation. YUMIKO
[2017-11-14] MEDS: INSULIN GLARGINE SOLOSTAR 100 UNITS/ML 3 ML PEN SC SCH (10:05)
--- NOTE | 2017-11-14 11:10 | ECHOCARDIOGRAM REPORT ---
*NOTICE TO RECEIVING DEMOCRAT AGENCY This information is strictly Confidential and protected under [place] law. [place] law prohibits you from making any further disclosure of this information unless further disclosure is expressly permitted by the written consent of the person to whom it pertains or is authorized by law. A general authorization for the release of medical or other information is not sufficient for this purpose. Hospital accepts no responsibility if the information is made available to any other person, INCLUDING THE PATIENT. Interpretation Summary * Name: JENNIFER DOTY Study Date: 11/14/2017 07:19 AM BP: 151/98 mmHg * Patient Location: .2T\S\S237\S\1 HR: 104 * : 1960 (M/d/yyyy) Gender: Female Height: 65 in * Age: 57 yrs Ethnicity: CA Weight: 220 lb * Ordering Physician: Chintan Mcknight * Referring Physician: MAIK * Performed By: Lyudmila Stokes RDCS * * Reason For Study: CHF * BSA: 2.1 m2 * FOLLOW UP ECHO FOR RV HEART STRAIN AND LV FUNCTION * The study was technically adequate. * Compared to prior study, there is no significant change. * -- Conclusions -- * Ejection Fraction = 25-30%. * There is severe global hypokinesis of the left ventricle. * The right ventricle is mildly dilated. * The right ventricular systolic function is mild to moderately reduced. * The right ventricular systolic function is reduced as assessed by tricuspid annular plane systolic excursion (TAPSE) (TAPSE <1.6 cm). * There is mild tricuspid regurgitation. * The estimated systolic PAP is 52mmHg. * Dilated inferior vena cava with reduced collapsability with sniff indicates an elevated right atrial pressure of 15 mmHg Procedure Details * A contrast injection of Definity was performed to improve assessment of LV function. * Contrast was injected into an intravenous site in the central line. * One vial of Definity ultrasound contrast was diluted in normal saline to a total volume of 10 ml. A total of '2' ml of solution was administered during imaging. * Lot # [id number] of Definity utilized for procedure. * Expiration date DEC 22. * The attending nurse who injected the contrast agent was CHARIE APODACA, RN. Left Ventricle * Ejection Fraction = 25-30%. * There is severe global hypokinesis of the left ventricle. Right Ventricle * The right ventricle is mildly dilated. * The right ventricular systolic function is mild to moderately reduced. * The right ventricular systolic function is reduced as assessed by tricuspid annular plane systolic excursion (TAPSE) (TAPSE <1.6 cm). Atria * The left atrium is mildly dilated. Mitral Valve * The mitral valve is grossly normal. * There is mild mitral regurgitation. Tricuspid Valve * The tricuspid valve is not well visualized, but is grossly normal. * There is no tricuspid stenosis. * There is mild tricuspid regurgitation. * The estimated systolic PAP is 52mmHg. Aortic Valve * The aortic valve is trileaflet. * The aortic valve opens well. * No hemodynamically significant valvular aortic stenosis. Pulmonic Valve * The pulmonary valve is not well seen, but the Doppler examination is normal without significant regurgitation or stenosis. Great Vessels * Dilated inferior vena cava with reduced collapsability with sniff indicates an elevated right atrial pressure of 15 mmHg MMode 2D Measurements and Calculations IVSd 0.99 cm IVSs 0.96 cm LVIDd 5.9 cm LVIDs 5.1 cm LVPWd 1.6 cm LVPWs 2.0 cm IVS/LVPW 0.60 FS 13.0 % EDV(Teich) 173.8 ml ESV(Teich) 126.0 ml EF(Teich) 27.5 % EDV(cubed) 206.2 ml ESV(cubed) 135.7 ml EF(cubed) 34.2 % % IVS thick -2.60 % % LVPW thick 18.9 % LV mass(C)d 347.5 grams LV mass(C)dI 168.7 grams/m\S\2 LV mass(C)s 323.0 grams LV mass(C)sI 156.8 grams/m\S\2 SV(Teich) 47.7 ml SI(Teich) 23.2 ml/m\S\2 SV(cubed) 70.5 ml SI(cubed) 34.2 ml/m\S\2 LA dimension 5.1 cm LVAd ap4 50.2 cm\S\2 LVLd ap4 10.0 cm EDV(MOD-sp4) 202.9 ml EDV(sp4-el) 212.8 ml LVAs ap4 41.1 cm\S\2 LVLs ap4 9.0 cm ESV(MOD-sp4) 154.7 ml ESV(sp4-el) 159.5 ml EF(MOD-sp4) 23.7 % EF(sp4-el) 25.1 % LVAd ap2 45.7 cm\S\2 LVLd ap2 10.0 cm EDV(MOD-sp2) 172.7 ml EDV(sp2-el) 176.7 ml LVAs ap2 37.8 cm\S\2 LVLs ap2 9.4 cm ESV(MOD-sp2) 127.3 ml ESV(sp2-el) 130.0 ml EF(MOD-sp2) 26.3 % EF(sp2-el) 26.4 % LVLd %diff 0.03 % EDV(MOD-bp) 188.1 ml LVLs %diff 4.1 % ESV(MOD-bp) 144.7 ml EF(MOD-bp) 23.1 % SV(MOD-sp4) 48.1 ml SI(MOD-sp4) 23.4 ml/m\S\2 SV(MOD-sp2) 45.4 ml SI(MOD-sp2) 22.0 ml/m\S\2 SV(MOD-bp) 43.4 ml SI(MOD-bp) 21.1 ml/m\S\2 SV(sp4-el) 53.4 ml SI(sp4-el) 25.9 ml/m\S\2 SV(sp2-el) 46.6 ml SI(sp2-el) 22.6 ml/m\S\2 Doppler Measurements and Calculations TR max tatiana 285.0 cm/sec
--- NOTE | 2017-11-14 11:22 | Pharmacy Progress Note ---
Glycemic Control Intl Consult Date of Service Nov 14, 2017. Scope Glycemic Pharmacist consulted by Dr Mcknight on 11/14/17 for glycemic control and to write orders per [facility] inpatient glycemic control protocol Objective Weight (Kilograms): 92.800 Accuchecks BSG (last 24hrs): Test 11/14/17 04:36 Random Glucose 236 mg/dl (70-99) Laboratory Data (last 24hrs) Test 11/14/17 04:36 Anion Gap 8.0 mmol/L BUN/Creatinine Ratio 8.5 Blood Urea Nitrogen 20 mg/dl Creatinine 2.33 mg/dl Potassium Level 3.9 mmol/L Sodium Level 137 mmol/L White Blood Count 11.49 K/uL Red Blood Count 3.06 M/uL Hemoglobin 8.4 g/dL Hematocrit 27.0 % Mean Corpuscular Volume 88.2 fL Mean Corpuscular Hemoglobin 27.5 pg Mean Corpuscular Hemoglobin Concent 31.1 g/dl Platelet Count 542 K/uL Mean Platelet Volume 8.9 fL Neutrophils (%) (Auto) 76.4 % Lymphocytes (%) (Auto) 10.9 % Monocytes (%) (Auto) 10.9 % Eosinophils (%) (Auto) 0.3 % Basophils (%) (Auto) 0.4 % Neutrophils # (Auto) 8.78 K/uL Lymphocytes # (Auto) 1.25 K/uL Monocytes # (Auto) 1.25 K/uL Eosinophils # (Auto) 0.03 K/uL Basophils # (Auto) 0.05 K/uL HbA1c 11.8% in 09/11/17 Will not re-order as patient now on HD as of 11/04/17 Result would likely be somewhat unreliable in ESRD patients d/t interactions between the A1c analyzing technique and high levels of urea in ESRD, reduced RBC life span, iron deficiency anemia, and EPO administration. HbA1c > 7.5% in ESRD patient may overestimate the extent of hyperglycemia in ESRD patients. Recent Pertinent Medications Outpatient Anti-diabetic Regimen: * Glipizide 10mg PO QAM + 20mg PO QPM * Levemir 10 units SQ HS * NovoLog SSI per scale * Metformin 1,000mg PO BIDM Assessment & Plan ASSESSMENT: * 57yo T2DM female known to pharmacy from previous admissions/glycemic consults. Most recently 11/02/17 admission. * Will continue similar SQ basal bolus insulin regimen per previous admission * Hold oral agents for admission * Pt required about 20-30 units of insulin per day with near adequate control. PLAN FOR INPATIENT GLYCEMIC CONTROL: * Hold outpatient oral diabetes medications * Basal insulin * Lantus 10 units SQ daily in AM * Bolus insulin * NovoLog per scale ACHS or Q6hrs while NPO * Goal Range: Low 120 mg/dL - High 150 mg/dL {slightly higher goal range for ESRD & elevated A1c} * Correction Factor: 30 mg/dL/unit * Nutritional / Prandial insulin per carb ratio of 1 unit per 10 grams CHO consumed * Please note that the plan above was derived based on current level of insulin resistance and hospital stress. These recommendations are appropriate for inpatient admission only. Plan of care upon discharge will need to be reassessed to avoid potential outpatient hypo/hyperglycemia. Thank you.
--- NOTE | 2017-11-14 13:43 | CARDIOLOGY CONSULTATION ---
DATE OF CONSULTATION: 11/14/2017 REASON FOR CONSULTATION: Shortness of breath and congestive heart failure. REFERRING PHYSICIAN: Dr. Mary Kate Martinez. HISTORY OF PRESENT ILLNESS: Ms. Andres is a 57-year-old female who was recently admitted to [facility] on November 02 with intractable pain, congestive heart failure, and new onset renal failure with hemodialysis. The patient left against medical advice. During that previous hospitalization, she was treated for congestive heart failure as well as episodes of nonsustained ventricular tachycardia. She was seen in [facility] yesterday and subsequently transferred to [facility] due to lack of dialysis facilities at that hospital. She is currently receiving hemodialysis treatment. She states she became short of breath yesterday abruptly. Her shortness of breath has improved on dialysis. She denies chest pain or palpitations. No lightheadedness, dizziness, syncope or near syncope. Currently, resting comfortably. At the time of her discharge approximately 1 week ago, the patient was on a lower dose of carvedilol. Her previous outpatient dose was 25 mg twice daily and currently 6.25 mg twice daily. REVIEW OF SYSTEMS: The pertinent positives noted above. A comprehensive 10-system review is otherwise negative. PAST MEDICAL HISTORY: 1. Coronary artery disease with drug-eluting stent to the ramus. 2. Ischemic cardiomyopathy. 3. Diabetes with most recent hemoglobin A1c of 11.8. 4. Obesity. 5. Hypertension. 6. Dyslipidemia. 7. End-stage renal disease, on hemodialysis. 8. DANGELO. PAST SURGICAL HISTORY: 1. Cardiac catheterization in April 2015 with an 80% proximal ramus intermedius stenosis, receiving a drug-eluting stent x1 with a repeat catheterization in 2015 demonstrating no obstructive disease. 2. Tonsillectomy. 3. Hysterectomy. 4. Laparoscopic cholecystectomy. 5. Lumbar spinal fusion. 6. Recent port placement. FAMILY HISTORY: Negative for premature CAD or sudden cardiac ; however, noncontributory. SOCIAL HISTORY: Denies alcohol, tobacco, or illicit drug use. CURRENT OUTPATIENT MEDICATIONS: 1. Norvasc 2.5 mg daily. 2. Ascorbic acid 500 mg t.i.d. 3. Aspirin 81 mg daily. 4. Lipitor 80 mg daily. 5. BuSpar 20 mg b.i.d. 6. Carvedilol 6.25 mg twice daily. 7. Plavix 75 mg daily. 8. TriCor 67 mg daily. 9. Gabapentin 300 mg t.i.d. 10. Glucotrol 20 mg at bedtime. 11. Glipizide 10 mg a.m. 12. Oxygen 2 liters as needed. 13. Levemir 10 units at bedtime. 14. Metformin 1000 b.i.d. -- discontinued. 15. Trazodone 50 mg at bedtime. 16. Effexor daily. 17. Albuterol daily. 18. Hydrocodone/acetaminophen as needed. 19. Lorazepam as needed. 20. Sublingual nitroglycerin as needed. ECG ON ADMISSION: Sinus tachycardia with nonspecific ST abnormality. Telemetry demonstrates sinus tachycardia. Chest x-ray on admission, cardiomegaly with pulmonary edema. Lower extremity venous duplex is negative for DVT. V/Q scan pending. LABORATORY DATA: White blood cell count 11.49, hemoglobin is 8.4, and platelet count is 542. INR is 1.2. Sodium is 137, potassium 3.9, chloride 105, CO2 is 24, BUN is 20, and creatinine is 2.33. Troponin 0.132. ProBNP 59687. TSH 2.40. Influenza screen is negative. Urinalysis, trace leukocyte esterase and trace blood. PHYSICAL EXAMINATION: VITAL SIGNS: Temperature is 36.5 degrees centigrade, pulse is 110 beats per minute and regular, respiratory rate is 12 breaths per minute, blood pressure 133/82 and SaO2 is 100% on 2 liters. GENERAL: NAD, awake, alert and oriented x3. HEENT: Her mucous membranes are moist. No scleral icterus. Conjunctivae pink. NECK: Supple without JVD at this time. No carotid bruit. HEART: Regular and tachycardic with a normal S1 and S2. No murmur, rub or gallop. LUNGS: Demonstrate crackles at the bases bilaterally. ABDOMEN: Soft and nontender. No rebound or guarding. Normal bowel sounds. EXTREMITIES: Warm and dry. There is 1-2+ pedal edema. NEUROLOGIC: Demonstrates no focal deficit. FINAL IMPRESSION: 1. Complex 57-year-old female with a history of ischemic cardiomyopathy and most recent ejection fraction of 25%, who presents with acute shortness of breath and tachycardia. She is currently receiving dialysis treatment. Symptoms appear to be secondary to volume overload and congestive heart failure. Possibility of pulmonary embolus is considered and a VQ scan is pending. 2. Sinus tachycardia - the patient is on suboptimal dose of beta-isael therapy currently. 3. B-cell lymphoma with a history of 3 rounds of chemotherapy thus far. 4. Acute renal failure, now on hemodialysis. 5. Longstanding history of hypertension - the patient currently is normotensive. 6. History of coronary artery disease with LILLIAN to the ramus intermedius in 2014 -- no evidence of acute coronary syndrome. 7. Chronic anemia. 8. Dyslipidemia. PLAN AND RECOMMENDATIONS: The patient will continue hemodialysis treatment for volume removal. Carvedilol will be titrated to 12.5 mg twice daily. Other cardiovascular medications including aspirin, Plavix, and atorvastatin will be continued as previously ordered. We will continue to follow closely during hospitalization. We will continue to monitor telemetry at this time. Thank you for allowing me to participate in care of your patient.
--- NOTE | 2017-11-14 16:29 | DIAGNOSTIC IMAGING REPORT ---
LUNG IMAGING VQ CLINICAL HISTORY: Chest pain. Dyspnea. COMPARISON: None TECHNIQUE: For the ventilation portion of this exam, 32 mCi of DTPA was inhaled at 3:10 PM. Immediately following inhalation, imaging of the chest was carried out in the anterior, posterior, left lateral, right lateral, LPO, RPO, BAHRAINI and SHERWOOD projections. For the perfusion portion of exam, 5.7 mCi of technetium 99m MAA was injected IV at 4:05 PM. Immediately following injection, imaging of the chest was carried out in the same projections. FINDINGS: Heterogeneity of perfusion throughout both hemithoraces. Considerable central air trapping on the aerosol component of the study. A major ventilation perfusion mismatch is not appreciated. IMPRESSION: Low probability of pulmonary embolus. Emphysematous change The above report was generated using voice recognition software. It may contain grammatical, syntax or spelling errors. Electronically signed by: Jordan Mitchell M.D. 11/14/2017 4:28 PM Dictated Date/Time: 11/14/2017 4:26 PM
--- NOTE | 2017-11-14 18:01 | Medical Consult ---
Consultation Date of Consultation: Nov 14, 2017. Attending Physician: Mary Kate Martinez M.D. History of Present Illness ONCOLOGY HEMATOLOGY CONSULT: Evaluation and management of B-cell lymphoma Date of consult: 11/14/2017 HPI: 57-year-old female, a case of diffuse large B-cell lymphoma, she received 2 cycles of chemotherapy with Rituxan, cyclophosphamide, prednisone, Etoposide, vincristine, also received prophylactic Neulasta, last cycle of chemotherapy received on 10/22/2017. Following last cycle of chemotherapy she was admitted at [facility] for diarrhea, dehydration, increasing bone pain following Neulasta injection, she had a rapid deterioration of the kidney function test which required hemodialysis, she was then discharged home on 11/08/2017 and plan to have outpatient hemodialysis. She presented to [facility] ER for increasing shortness of breath, also had a significant tachycardia and so she was transferred at [facility] and now admitted in the hospital, I saw her at bedside, earlier in the day she had hemodialysis. Recent imaging study showed multifocal bilateral patchy airspace disease, positive multifocal pneumonia and small pericardial effusion. She also has underlying cardiac failure and received appropriate treatment in the last 24 over with the gradual improvement of her clinical condition. Blood workup done on admission (11/14/2017: - WBC 11,400, H&H of 8.4/27, Platelet count of 542,000, ANC 8700. - BUN/creatinine: 20/2.3, calcium 8.4, AST 15, ALT 16, I went phosphorus 85, Total bilirubin: 0.4 - ProBNP --> 33,200 - Procalcitonin 0.19. - Bilateral lower extremity deprivation done on 11/14/2017 --> No evidence of DVT. - V/Q scan --> Low probability. REVIEW OF SYSTEMS: GENERAL: fatigue present, no fever, no chills. SKIN: No skin rash, no bruising. HEAD: No headache, no dizziness. EYES: No change in the vision, no diplopia, EARS: No earache ,no tinnitus, NOSE: No epistaxis, No nasal discharge or stuffiness, MOUTH: No sores, no dysphagia, no hoarseness of voice, NECK: No lumps, No swelling in thyroid area. No stiffness. PULMONARY: cough with scanty white expectorant present, she is shortness of breath which has improved,, no hemoptysis, no chest pain, No wheezing. CARDIOVASCULAR: No anginal chest pain, no PND, no orthopnea. No palpitation, mild bilateral leg edema. No syncope. GASTRIINTESTINAL: No abdominal pain, no nausea or vomiting. No diarrhea, No constipation. No blood in stool or black tarry stools. No abdominal distention. UROLOGIC: No burning urination. No hematuria. MUSCULOSKELETAL: No joint pain, No joint swelling, no muscle weakness. HEMATOLOGIC: mild anemia present, no bleeding disorder, No bruising. NEUROLOGIC : No seizures, no focal weakness, no speech difficulty, No memory disturbances. No tingling or numbness of the extremities. PSYCHRIATRIC: No depression. No anxiety. No psychosis. PAST MEDICAL/SURGICAL HISTORY: - Coronary artery disease, congestive heart failure, diabetes mellitus, hypertension, sleep apnea, migrainous headache. - S/P appendectomy, hysterectomy, cystectomy, tonsillectomy, spine surgery in the past. SOCIAL HISTORY: former smoker, no ETOH abuse. FAMILY HISTORY: not significant. MEDICATIONS: please review her chart for detail list of medications. On exam: - Alert and oriented x3, well built woman, not in any distress. - HEENT: no icterus, no pallor, Throat: Normal. - Neck: No palpable cervical lymphadenopathy. - Chest: clear to auscultation. - Abdomen: soft, nontender, no hepatomegaly, no splenomegaly. - No focal neuro deficit. - Extremities: no finger clubbing, mild bilateral leg edema present. LABS: as described above. - Blood culture --> Pending. - Influenza A and B --> Negative. ASSESSMENT AND PLAN: 57-year-old female, a known case of diffuse large B-cell lymphoma, also has underlying ischemic artery myopathy and so he could not proceed with Adriamycin-based chemotherapy, she received 2 cycles of chemotherapy with Rituxan, Etoposide, cyclophosphamide, prednisone, vincristine , she had some bone pain following Neulasta injection that she received following 2nd cycle of chemotherapy. Recently when she was admitted in the hospital, she had increasing diarrhea, dehydration, hypertension, had acute kidney failure, now requiring hemodialysis support, now admitted for possible multifocal bilateral pneumonia and/or worsening heart failure, significantly elevated proBNP noted. No neutropenia noted. Platelet count is in normal range. No new bleeding complications. No fever at present. She does not require any active oncological care at this time. Because of underlying worsening cardiac and renal function, I would like to hold chemotherapy treatment at this time, I do not think that we will be able to proceed with the same chemotherapy that she received recently. May consider for single agent Rituxan in the near future. We consider for further treatment option as an outpatient. Thanks for the consultation. Ranjan Dobbs MD Hem/Onc Past Medical/Surgical History Medical Problems: (1) Acute bronchitis Status: Acute (2) Acute chest pain Status: Acute (3) Anemia Status: Acute (4) Anemia Status: Acute (5) Elevated troponin Status: Acute (6) Enlarged lymph node Status: Acute (7) Hypomagnesemia Status: Acute (8) Hypoxia Status: Acute (9) Neck pain on right side Status: Acute (10) Pulmonary edema Status: Acute Family History Heart disease Social History Smoking Status: Former Smoker Drug Use: none Marital Status: Allergies Coded Allergies: Adhesives (Verified Allergy, Unknown, RASH, 11/01/17) Current Inpatient Medications Current Inpatient Medications Medications (Trade) Dose Ordered Sig/Chantale Route Start Time Stop Time Status Last Admin Dose Admin Lorazepam (Ativan Tab) 0.5 mg Q6H PRN PO 11/14/17 04:30 12/14/17 04:29 11/14/17 11:04 0.5 MG Nitroglycerin (Nitrostat Tab) 0.4 mg UD PRN UT 11/14/17 04:30 12/14/17 04:29 Insulin Aspart (novoLOG ASPART) SLIDING SCALE If C... ACHS SC 11/14/17 07:00 12/14/17 06:59 11/14/17 17:20 5 UNITS Glucose (Glucose 40% Gel) 15-30 GRAMS 15 GRAMS... UD PRN PO 11/14/17 04:30 12/14/17 04:29 Glucose (Glucose Chew Tab) 4-8 Tablets 4 Tabl... UD PRN PO 11/14/17 04:30 12/14/17 04:29 Dextrose (Dextrose 50% 50ML Syringe) 25-50ML OF 50% DW IV FOR... UD PRN IV 11/14/17 04:30 12/14/17 04:29 Glucagon (Glucagon Inj) 1 mg UD PRN SQ 11/14/17 04:30 12/14/17 04:29 Miscellaneous Information (Consult Glycemic Management Pharmacy) 1 ea DAILY PRN N/A 11/14/17 05:06 12/14/17 05:05 Heparin Sodium/ Dextrose 500 ml @ 27 mls/hr [id number] PRN IV 11/14/17 05:15 12/14/17 05:14 11/14/17 05:54 27 MLS/HR Levofloxacin (Levaquin Tab) 500 mg Q2D@1100 PO 11/16/17 11:00 11/21/17 10:59 Aspirin (Ecotrin Tab) 81 mg DAILY PO 11/14/17 09:00 12/14/17 08:59 11/14/17 08:26 81 MG Atorvastatin Calcium (Lipitor Tab) 80 mg DAILY PO 11/14/17 09:00 12/14/17 08:59 11/14/17 08:26 80 MG Clopidogrel Bisulfate (plAVix TAB) 75 mg QAM PO 11/14/17 09:00 12/14/17 08:59 11/14/17 08:26 75 MG Gabapentin (Neurontin Cap) 300 mg TID PO 11/14/17 09:00 12/14/17 08:59 11/14/17 14:27 300 MG Trazodone HCl (Desyrel Tab) 50 mg HS PO 11/14/17 21:00 12/14/17 20:59 Venlafaxine HCl (effeXOR EXTENDED REL CAP) 150 mg DAILY PO 11/14/17 09:00 12/14/17 08:59 11/14/17 08:27 150 MG Buspirone HCl (Buspar Tab) 20 mg BID PO 11/14/17 09:00 12/14/17 08:59 11/14/17 08:25 20 MG Insulin Glargine (Lantus Solostar Pen) 10 units DAILY SC 11/14/17 09:00 12/14/17 08:59 11/14/17 10:05 10 UNITS Carvedilol (Coreg Tab) 12.5 mg BID PO 11/14/17 21:00 12/15/17 08:59 Physical Exam Date Time Temp Pulse Resp B/P (MAP) Pulse Ox O2 Delivery O2 Flow Rate FiO2 11/14/17 16:00 95 Nasal Cannula 2.0 11/14/17 13:30 36.5 100 112/80 (91) 11/14/17 12:30 105 118/83 11/14/17 12:15 109 133/82 11/14/17 12:12 36.5 106 16 137/77 (97) 100 Nasal Cannula 2.0 11/14/17 12:00 107 130/64 11/14/17 11:45 108 136/83 11/14/17 11:30 106 137/77 11/14/17 11:28 97 Nasal Cannula 2.0 11/14/17 11:15 104 136/72 11/14/17 11:00 109 138/85 11/14/17 10:45 107 135/78 11/14/17 10:30 107 125/78 11/14/17 10:15 109 124/76 11/14/17 10:00 104 130/80 11/14/17 09:46 102 124/82 11/14/17 09:35 37.0 105 136/81 (99) 11/14/17 08:00 96 Nasal Cannula 2.0 11/14/17 07:14 37.0 108 20 148/95 (112) 100 Nasal Cannula 2.0 11/14/17 04:24 36.9 126 22 151/98 96 Room Air Laboratory Results Last 24 Hours Test 11/14/17 04:10 11/14/17 04:15 11/14/17 04:36 11/14/17 05:28 Urine Color YELLOW Urine Appearance CLEAR Urine pH 6.0 Urine Specific [place] 1.007 Urine Protein 1+ Urine Glucose (UA) TRACE Urine Ketones NEG Urine Occult Blood TRACE Urine Nitrite NEG Urine Bilirubin NEG Urine Urobilinogen NEG Urine Leukocyte Esterase TRACE Urine WBC (Auto) 1-5 /hpf Urine RBC (Auto) 0-4 /hpf Urine Hyaline Casts (Auto) 1-5 /lpf Urine Epithelial Cells (Auto) 10-20 /lpf Urine Bacteria (Auto) NEG Influenza Type A Antigen Neg for Influ A Influenza Type B Antigen Neg for Influ B White Blood Count 11.49 K/uL Red Blood Count 3.06 M/uL Hemoglobin 8.4 g/dL Hematocrit 27.0 % Mean Corpuscular Volume 88.2 fL Mean Corpuscular Hemoglobin 27.5 pg Mean Corpuscular Hemoglobin Concent 31.1 g/dl Platelet Count 542 K/uL Mean Platelet Volume 8.9 fL Neutrophils (%) (Auto) 76.4 % Lymphocytes (%) (Auto) 10.9 % Monocytes (%) (Auto) 10.9 % Eosinophils (%) (Auto) 0.3 % Basophils (%) (Auto) 0.4 % Neutrophils # (Auto) 8.78 K/uL Lymphocytes # (Auto) 1.25 K/uL Monocytes # (Auto) 1.25 K/uL Eosinophils # (Auto) 0.03 K/uL Basophils # (Auto) 0.05 K/uL RDW Standard Deviation 54.6 fL RDW Coefficient of Variation 17.0 % Immature Granulocyte % (Auto) 1.1 % Immature Granulocyte # (Auto) 0.13 K/uL Hypochromasia PRESENT Sodium Level 137 mmol/L Potassium Level 3.9 mmol/L Chloride Level 105 mmol/L Carbon Dioxide Level 24 mmol/L Anion Gap 8.0 mmol/L Blood Urea Nitrogen 20 mg/dl Creatinine 2.33 mg/dl Est Creatinine Clear Calc Drug Dose 31.5 ml/min Estimated GFR () 26.2 Estimated GFR (Non- 22.6 BUN/Creatinine Ratio 8.5 Random Glucose 236 mg/dl Lactic Acid Level 1.2 mmol/L Calcium Level 8.4 mg/dl Total Bilirubin 0.4 mg/dl Aspartate Amino Transf (AST/SGOT) 15 U/L Alanine Aminotransferase (ALT/SGPT) 16 U/L Alkaline Phosphatase 85 U/L Troponin I 0.132 ng/ml Pro-B-Type Natriuretic Peptide 75903 pg/ml Total Protein 5.9 gm/dl Albumin 2.5 gm/dl Globulin 3.4 gm/dl Albumin/Globulin Ratio 0.7 Procalcitonin 0.19 ng/ml Thyroid Stimulating Hormone (TSH) 2.410 uIu/ml Prothrombin Time 12.3 SECONDS Prothromb Time International Ratio 1.2 Activated Partial Thromboplast Time 26.7 SECONDS Partial Thromboplastin Ratio 1.0 Test 11/14/17 13:46 11/14/17 16:31 Activated Partial Thromboplast Time 51.0 SECONDS Partial Thromboplastin Ratio 2.0 Bedside Glucose 167 mg/dl
[2017-11-14] MEDS: TRAZODONE HCL 50 MG TAB PO SCH (20:13)
[2017-11-14] MEDS: CARVEDILOL 12.5 MG TAB PO SCH (20:14)
--- NOTE | 2017-11-14 21:08 | Progress Note ---
Progress Note Date of Service Nov 14, 2017. Progress Note ATTENDING NOTE : pt admitted earlier today , please see the H&P for detail : 57-year-old female with a history of ischemic cardiomyopathy and presented with acute shortness of breath and tachycardia. Acute on chronic CHF , ischemic cardiomyopathy recent ECHO shows EF 25 % received Dialysis today appreciate input from Cardiology and Nephrology SINUS TACHYCARDIA : possible due to vol overload , hypoxia S/p dialysis V/Q scan low suspicion for PE , lower ext DVT negative for DVT IV heparin D/oz Coreg dose increased to 12.5 mg BID cont to monitor in Tele no evidence of pneumonia in Cxray , pro calcitonin level wnl will D/c Levaquin
[2017-11-15] VITALS (7 sets, daily range): BP systolic 97–129; BP diastolic 69–84; PULSE 95–108; TEMP 36.4–37.3; O2SAT 94–100
[2017-11-15 07:04] LABS: HEMATOCRIT 28.4 % (37-47); HEMOGLOBIN 8.6 g/dL (12.0-16.0); MEAN CELL VOLUME 89.6 fL (80-100); MEAN CORPUSCULAR HEMOGLOBIN 27.1 pg (25-34); MEAN CORPUSCULAR HGB CONC 30.3 g/dl (32-36); MEAN PLATELET VOLUME 9.1 fL (7.4-10.4); PLATELET COUNT 552 K/uL (130-400); RED CELL DISTRIBUTION WIDTH CV 17.1 % (11.5-14.5); RED CELL DISTRIBUTION WIDTH SD 55.8 fL (36.4-46.3); WHITE BLOOD COUNT 11.38 K/uL (4.8-10.8)
[2017-11-15] MEDS ORDERED: LEVOFLOXACIN 500 MG TAB PO SCH (08:00)
[2017-11-15] MEDS: ATORVASTATIN 40 MG TAB PO SCH (08:28)
[2017-11-15] MEDS: ASPIRIN 81 MG ECTAB PO SCH (08:28)
[2017-11-15] MEDS: GABAPENTIN 300 MG CAP PO SCH ×3 (08:29→20:46)
[2017-11-15] MEDS: CLOPIDOGREL BISULFATE 75 MG TAB PO SCH (08:29)
[2017-11-15] MEDS: CARVEDILOL 12.5 MG TAB PO SCH (08:29)
[2017-11-15] MEDS: VENLAFAXINE HCL XR 150 MG CAPXR PO SCH (08:29)
[2017-11-15] MEDS: INSULIN ASPART 100 UNITS/ML 3 ML PEN SC SCH ×4 (08:35→20:47)
[2017-11-15] MEDS: INSULIN GLARGINE SOLOSTAR 100 UNITS/ML 3 ML PEN SC SCH (08:36)
[2017-11-15] MEDS ORDERED: CARVEDILOL 6.25 MG TAB PO SCH (09:00)
--- NOTE | 2017-11-15 10:01 | Nephrology Progress Note ---
Nephrology Progress Note Date of Service: Nov 15, 2017. Subjective 57 yo female with ESRD who presented with tachycardia and sob. there was initially a concern for PE although vq scan was low prob and dopplers negative and heparin stopped. leading diagnosis of volume overload. pt comfortable. had dialysis yesterday. pt very tired. Objective Date Time Temp Pulse Resp B/P (MAP) Pulse Ox O2 Delivery O2 Flow Rate FiO2 11/15/17 08:00 Nasal Cannula 2.0 11/15/17 07:42 36.7 106 18 128/84 (99) 100 Nasal Cannula 2.0 11/15/17 04:24 37.3 98 18 117/82 (94) 99 Nasal Cannula 2.0 11/15/17 04:15 Nasal Cannula 2.0 11/15/17 00:24 36.6 105 18 129/83 (98) 100 Nasal Cannula 2.0 11/15/17 00:00 Nasal Cannula 2.0 11/14/17 20:12 Nasal Cannula 2.0 11/14/17 19:27 37.0 109 20 127/84 (98) 99 Nasal Cannula 2.0 11/14/17 16:00 95 Nasal Cannula 2.0 11/14/17 13:30 36.5 100 112/80 (91) 11/14/17 12:30 105 118/83 11/14/17 12:15 109 133/82 11/14/17 12:12 36.5 106 16 137/77 (97) 100 Nasal Cannula 2.0 11/14/17 12:00 107 130/64 11/14/17 11:45 108 136/83 11/14/17 11:30 106 137/77 11/14/17 11:28 97 Nasal Cannula 2.0 11/14/17 11:15 104 136/72 11/14/17 11:00 109 138/85 11/14/17 10:45 107 135/78 11/14/17 10:30 107 125/78 11/14/17 10:15 109 124/76 11/14/17 10:00 104 130/80 Physical Exam: General-aaox3 Eyes-no scleral icterus ENT-mmm Neck-supple Lungs-decreased breath sounds at bases Heart-tachycardia Abdomen-bs s/nt/nd Extremities-no c/c/e Neuro-nonfocal Current Inpatient Medications Medications (Trade) Dose Ordered Sig/Chantale Route Start Time Stop Time Status Last Admin Dose Admin Lorazepam (Ativan Tab) 0.5 mg Q6H PRN PO 11/14/17 04:30 12/14/17 04:29 11/14/17 11:04 0.5 MG Nitroglycerin (Nitrostat Tab) 0.4 mg UD PRN UT 11/14/17 04:30 12/14/17 04:29 Insulin Aspart (novoLOG ASPART) SLIDING SCALE If C... ACHS SC 11/14/17 07:00 12/14/17 06:59 11/15/17 08:35 4 UNITS Glucose (Glucose 40% Gel) 15-30 GRAMS 15 GRAMS... UD PRN PO 11/14/17 04:30 12/14/17 04:29 Glucose (Glucose Chew Tab) 4-8 Tablets 4 Tabl... UD PRN PO 11/14/17 04:30 12/14/17 04:29 Dextrose (Dextrose 50% 50ML Syringe) 25-50ML OF 50% DW IV FOR... UD PRN IV 11/14/17 04:30 12/14/17 04:29 Glucagon (Glucagon Inj) 1 mg UD PRN SQ 11/14/17 04:30 12/14/17 04:29 Miscellaneous Information (Consult Glycemic Management Pharmacy) 1 ea DAILY PRN N/A 11/14/17 05:06 12/14/17 05:05 Aspirin (Ecotrin Tab) 81 mg DAILY PO 11/14/17 09:00 12/14/17 08:59 11/15/17 08:28 81 MG Atorvastatin Calcium (Lipitor Tab) 80 mg DAILY PO 11/14/17 09:00 12/14/17 08:59 11/15/17 08:28 80 MG Clopidogrel Bisulfate (plAVix TAB) 75 mg QAM PO 11/14/17 09:00 12/14/17 08:59 11/15/17 08:29 75 MG Gabapentin (Neurontin Cap) 300 mg TID PO 11/14/17 09:00 12/14/17 08:59 11/15/17 08:29 300 MG Trazodone HCl (Desyrel Tab) 50 mg HS PO 11/14/17 21:00 12/14/17 20:59 11/14/17 20:13 50 MG Venlafaxine HCl (effeXOR EXTENDED REL CAP) 150 mg DAILY PO 11/14/17 09:00 12/14/17 08:59 11/15/17 08:29 150 MG Buspirone HCl (Buspar Tab) 20 mg BID PO 11/14/17 09:00 12/14/17 08:59 11/15/17 08:28 20 MG Insulin Glargine (Lantus Solostar Pen) 10 units DAILY SC 11/14/17 09:00 12/14/17 08:59 11/15/17 08:36 10 UNITS Carvedilol (Coreg Tab) 12.5 mg BID PO 11/14/17 21:00 12/15/17 08:59 11/15/17 08:29 12.5 MG Heparin Sodium (Porcine) (Heparin 100 Unit/ml 5ml Flush) 5 ml PRN PRN IV 11/15/17 02:30 12/15/17 02:29 Last 24 Hours Test 11/14/17 13:46 11/14/17 16:31 11/14/17 20:10 11/15/17 06:25 Activated Partial Thromboplast Time 51.0 SECONDS Partial Thromboplastin Ratio 2.0 Bedside Glucose 167 mg/dl 180 mg/dl White Blood Count 11.38 K/uL Red Blood Count 3.17 M/uL Hemoglobin 8.6 g/dL Hematocrit 28.4 % Mean Corpuscular Volume 89.6 fL Mean Corpuscular Hemoglobin 27.1 pg Mean Corpuscular Hemoglobin Concent 30.3 g/dl RDW Standard Deviation 55.8 fL RDW Coefficient of Variation 17.1 % Platelet Count 552 K/uL Mean Platelet Volume 9.1 fL Test 11/15/17 06:54 Bedside Glucose 140 mg/dl Assessment & Plan ESRD-pt presented with volume overload. only removed about a liter yesterday on dialysis. feels better now. overall, volume status much improved compared to when we initiated dialysis. no dialysis today. Continue m-w-f dialysis. Anemia-transfuse prn. no procrit with underlying malignancy.
--- NOTE | 2017-11-15 14:17 | CARDIOLOGY PROGRESS NOTE ---
DATE: 11/15/2017 DATE: 11/15/2017 The patient seen and examined. Chart, medications, laboratory studies reviewed. SUBJECTIVE: The patient feels improved today after diuresis. Notes no chest pains. Notes no tachypalpitations. Does have a cough which is minimally productive. Notes no worsening edema. OBJECTIVE: VITAL SIGNS: Heart rate is 95, blood pressure is 106/72. HEAD, EYES, EARS, NOSE, AND THROAT: Normocephalic, atraumatic. Nares without discharge. Throat was clear. NECK: Supple without thyromegaly, lymphadenopathy. There is no distinct jugular venous distention. LUNGS: Reveal few scattered wheezes bibasilar. CARDIOVASCULAR: Regular. There is no S3 gallop. ABDOMEN: Soft. EXTREMITIES: Reveal mild edema. LABORATORY DATA: Telemetry reveals sinus and sinus tachycardia with occasional ventricular ectopic beats. White cell count is 11.3, hemoglobin is 8.6. IMPRESSION: A 57-year-old female with complex history which includes underlying history of ischemic cardiomyopathy with [id number] LV dysfunction, end-stage renal disease and B cell lymphoma hospitalized with acute volume overload, congestive heart failure, elevated ventricular response rates. RECOMMENDATIONS: The patient has improved with dialysis, suspect this will be method of managing patient's underlying heart failure. Heart rate remains elevated, will increase beta isael further, increasing carvedilol 12.5 mg 1-1/2 tablets twice per day. Consideration may be made for reduction in Effexor if tolerated aid in heart rate control. No other adjustments made today.
--- NOTE | 2017-11-15 18:56 | Progress Note ---
Internal Med Progress Note Date of Service: Nov 15, 2017. Provider Documentation: SUBJECTIVE: feels much better , minimum SOB lower ext swelling had improved no fever or chills OBJECTIVE: Vital Signs-as noted below Exam: General-no sign of distress, very pleasant Eyes-sclera non icteric , PERRLA/EOMI ENT-moist oral mucosa Neck-no thyromegaly , trachea midline Lungs-diminished, + rales at base Heart-regular S1/S2 Abdomen-soft, non tender Extremities-trace bilat lower ext edema Neuro-AAO X3,no focal neurological deficit Lab data as noted below. ASSESSMENT & PLAN: Sinus Tachycardia/shortness of breath : multifactorial : possible due to vol overload , hypoxia S/p dialysis acute decompensated CHF with systolic dysfunction -Lung V/Q scan : Low probability of pulmonary embolus. Emphysematous change Ultrasound of lower extremities is negative. Coreg dose increased to 12.5 mg BID cont to monitor in Tele no evidence of pneumonia in Cxray , pro calcitonin level wnl will D/c Levaquin ACUTE CHF CHRONIC SYSTOLIC DYSFUNCTION hx of ischemic cardiomyopathy .ECHO : Ejection Fraction = 25-30%. * There is severe global hypokinesis of the left ventricle. * The right ventricle is mildly dilated. * The right ventricular systolic function is mild to moderately reduced. * The right ventricular systolic function is reduced as assessed by tricuspid annular plane systolic excursion (TAPSE) (TAPSE <1.6 cm). * There is mild tricuspid regurgitation. * The estimated systolic PAP is 52mmHg. * Dilated inferior vena cava with reduced collapsability with sniff indicates an elevated right atrial pressure of 15 mmHg BNP on this admission is 33,000 and troponin 0.132-due to cardiac strain / hypoxia Type 2 NSTEMI given IV Lasix , vol status improved after dialysis Cardiology consulted appreciate input -END STAGE RENAL DISEASE ON DIALYSIS Right internal Jugular perm cath placed on 11/04/[address] Low Gets schedule - Dialysis on Friday, Friday, Friday -Nephrology -Dr Ellis consulted for HD , appreciate input DIFFUSE LARGE B CELL LYMPHOMA -on chemotherapy with Rituxan, Cytoxan, Etopisode, Vincristine, Prednisone, allopurinol (to prevent tumor lysis syndrome ) -follows with Heme Onc Dr Ranjan Dobbs TYPE 2 DM : Type 2 diabetes mellitus Hold metformin or glipizide, while in pt sliding scale insulin, basal Lantus Pharmacy consulted for glycemic control appreciate input DNR /DNI DVT PROPHYLAXIS moderate to high risk due malignancy /Lymphoma Sub q heparin DISPOSITION expected to be discharged home when medically stable Medicine follow up with Dr Murray at [facility] Heme onc follow up with Dr Ranjan Dobbs Vital Signs: Date Time Temp Pulse Resp B/P (MAP) Pulse Ox O2 Delivery O2 Flow Rate FiO2 11/17/17 10:15 94 113/75 11/17/17 10:00 93 105/65 11/17/17 09:45 95 104/66 11/17/17 09:30 93 111/64 11/17/17 09:15 98 115/68 11/17/17 08:56 95 112/69 11/17/17 08:56 36.8 102 112/74 (87) 11/17/17 08:00 37.2 105 19 117/77 (90) 96 11/17/17 08:00 96 Room Air 2.0 11/17/17 03:30 Room Air 11/17/17 03:15 36.9 107 19 105/68 (80) 93 Room Air 11/17/17 00:10 37.0 101 20 102/68 (79) 97 Room Air 11/17/17 00:10 Room Air 11/16/17 20:23 Room Air 11/16/17 19:45 36.4 96 18 111/77 (88) 99 Room Air 11/16/17 16:00 Room Air 11/16/17 15:47 36.8 94 20 103/70 (81) 99 Room Air 11/16/17 12:06 36.4 101 18 116/82 (93) 95 Room Air 11/16/17 12:00 Room Air Lab Results: Results Past 24 Hours Test 11/16/17 11:20 11/16/17 16:26 11/16/17 20:10 11/17/17 04:15 Range/Units Bedside Glucose 222 249 231 70-90 mg/dl White Blood Count 12.17 4.8-10.8 K/uL Red Blood Count 2.94 4.2-5.4 M/uL Hemoglobin 8.1 12.0-16.0 g/dL Hematocrit 26.3 37-47 % Mean Corpuscular Volume 89.5 80-100 fL Mean Corpuscular Hemoglobin 27.6 25-34 pg Mean Corpuscular Hemoglobin Concent 30.8 32-36 g/dl RDW Standard Deviation 55.6 36.4-46.3 fL RDW Coefficient of Variation 17.4 11.5-14.5 % Platelet Count 481 130-400 K/uL Mean Platelet Volume 8.7 7.4-10.4 fL Nucleated RBC Absolute Count (auto) 0.02 0-0 K/uL Nucleated Red Blood Cells % 0.1 % Test 11/17/17 06:17 Range/Units Bedside Glucose 123 70-90 mg/dl
[2017-11-15] MEDS: TRAZODONE HCL 50 MG TAB PO SCH (20:46)
[2017-11-15] MEDS ORDERED: CARVEDILOL 12.5 MG TAB PO SCH (21:00)
[2017-11-16] MEDS ORDERED: ACETAMINOPHEN 325 MG TAB PO STA (00:11)
[2017-11-16] MEDS ORDERED: ACETAMINOPHEN 325 MG TAB PO PRN (00:15)
[2017-11-16] MEDS ORDERED: SUMATRIPTAN SUCCINATE 25 MG TAB PO STA (01:21)
[2017-11-16] MEDS ORDERED: SUMATRIPTAN SUCCINATE 25 MG TAB PO PRN (01:30)
[2017-11-16 02:02] LABS: BASO % 0.4 %; BASO ABS # 0.04 K/uL (0-0.2); EOS % 0.8 %; EOS ABS # 0.09 K/uL (0-0.5); HEMATOCRIT 27.1 % (37-47); HEMOGLOBIN 8.4 g/dL (12.0-16.0); IG# 0.09 K/uL (0.00-0.02); LYMPH % 15.3 %; LYMPH ABS # 1.67 K/uL (1.2-3.4); MEAN CELL VOLUME 89.4 fL (80-100); MEAN CORPUSCULAR HEMOGLOBIN 27.7 pg (25-34); MEAN PLATELET VOLUME 8.5 fL (7.4-10.4); MONO % 10.6 %; MONO ABS # 1.15 K/uL (0.11-0.59); NEUT % 72.1 %; NEUT ABS # 7.85 K/uL (1.4-6.5); PLATELET COUNT 434 K/uL (130-400); RED CELL DISTRIBUTION WIDTH CV 17.3 % (11.5-14.5); RED CELL DISTRIBUTION WIDTH SD 56.4 fL (36.4-46.3); WHITE BLOOD COUNT 10.89 K/uL (4.8-10.8)
[2017-11-16 02:33] LABS: ALBUMIN 2.4 gm/dl (3.4-5.0); CALCIUM 8.5 mg/dl (8.5-10.1); CREATININE 2.5 mg/dl (0.60-1.20); POTASSIUM 4.3 mmol/L (3.5-5.1); TOTAL PROTEIN 5.7 gm/dl (6.4-8.2)
[2017-11-16] MEDS ORDERED: NURSING VERBAL MED ORDER ONE ×2 (03:15→12:15)
[2017-11-16] MEDS: MAGNESIUM SULFATE 1GM / D5W 1 GM in PREMIXED IN D5W 100 ML IV SCH ×2 (03:37→04:34)
[2017-11-16 03:40] VITALS: BP 107/73; PULSE 105; TEMP 37; O2SAT 93
[2017-11-16 08:04] VITALS: BP 102/70; PULSE 99; TEMP 36.4; O2SAT 92
[2017-11-16] MEDS: INSULIN ASPART 100 UNITS/ML 3 ML PEN SC SCH ×4 (10:00→20:16)
[2017-11-16] MEDS: CLOPIDOGREL BISULFATE 75 MG TAB PO SCH (10:00)
[2017-11-16] MEDS: ATORVASTATIN 40 MG TAB PO SCH (10:00)
[2017-11-16] MEDS: GABAPENTIN 300 MG CAP PO SCH ×3 (10:00→20:14)
[2017-11-16] MEDS: ASPIRIN 81 MG ECTAB PO SCH (10:00)
[2017-11-16] MEDS: INSULIN GLARGINE SOLOSTAR 100 UNITS/ML 3 ML PEN SC SCH (10:00)
[2017-11-16] MEDS: VENLAFAXINE HCL XR 150 MG CAPXR PO SCH (10:00)
[2017-11-16] MEDS ORDERED: LEVOFLOXACIN 500 MG TAB PO SCH (11:00)
--- NOTE | 2017-11-16 11:20 | PROGRESS NOTE ---
DATE: 11/16/2017 CARDIAC CLINIC NOTE The patient seen and examined. Chart, medications, telemetry reviewed. SUBJECTIVE: The patient notes no complaints this morning is sitting out of bed in chair. Notes no dizziness or lightheadedness. Notes no chest pain or discomfort. OBJECTIVE: VITAL SIGNS: Heart rate is 84, blood pressure is 102/70. NECK: There is no jugular venous distention. LUNGS: Reveal mildly diminished breath sounds, but are predominantly clear. CARDIOVASCULAR: Regular. There is no S3 gallop. ABDOMEN: Soft. EXTREMITIES: Reveal trace pedal edema only. IMPRESSION: A 57-year-old female with complex history is well outlined in past, underlying history of ischemic heart disease and mixed etiology of cardiomyopathy, presented with acute signs and symptoms of volume overload, now clinically improved after dialysis. Heart rates are coming under better control with medical therapies but remained mildly elevated. Will plan on titrating carvedilol further to 25 mg twice per day. No other adjustments made. MTDD
--- NOTE | 2017-11-16 11:44 | Pharmacy Progress Note ---
Pharmacy Glycemic Short Note 2 Date of Service Nov 16, 2017. Outpatient Anti-diabetic Regimen: * Glipizide 10mg PO QAM + 20mg PO QPM * Levemir 10 units SQ HS * NovoLog SSI per scale * Metformin 1,000mg PO BIDM ASSESSMENT: * 57yo T2DM female known to pharmacy from previous admissions/glycemic consults. Most recently 11/02/17 admission. * 11/14/17: Continued similar SQ basal bolus insulin regimen per previous admission * Held oral agents for admission * Typically requires about 20-30 units of insulin per day with near adequate control. * BSGs 11/15/17: 140, 205, 140, 120 * BSGs 11/16/17: 166 * Changes needed to regimen * AM fasting BSG trending upwards. Will increase basal insulin * Post prandial BSGs in range at 140, 120 yesterday after CF/CR were tightened secondary to BSG of 205 PLAN FOR INPATIENT GLYCEMIC CONTROL: * Hold outpatient oral diabetes medications * Basal insulin: increase dose * Lantus 13 units SQ daily in AM * Bolus insulin : no change * NovoLog per scale ACHS or Q6hrs while NPO * Goal Range: Low 120 mg/dL - High 150 mg/dL {slightly higher goal range for ESRD & elevated A1c} * Correction Factor: 30 mg/dL/unit * Nutritional / Prandial insulin per carb ratio of 1 unit per 10 grams CHO consumed
[2017-11-16 12:06] VITALS: BP 116/82; PULSE 101; TEMP 36.4; O2SAT 95
[2017-11-16] MEDS ORDERED: HYDROCODONE/ACETAMOPHEN 5/325MG TAB PO PRN (12:30)
[2017-11-16 15:47] VITALS: BP 103/70; PULSE 94; TEMP 36.8; O2SAT 99
[2017-11-16 19:45] VITALS: BP 111/77; PULSE 96; TEMP 36.4; O2SAT 99
[2017-11-16] MEDS: TRAZODONE HCL 50 MG TAB PO SCH (20:13)
[2017-11-16] MEDS: CARVEDILOL 25 MG TAB PO SCH (20:14)
--- NOTE | 2017-11-16 20:34 | Progress Note ---
Internal Med Progress Note Date of Service: Nov 16, 2017. Provider Documentation: SUBJECTIVE: breathing much improved, no GRIMES , no orthopnea lower ext edema improved markedly pt is thinking of changing the schedule of her dialysis days to Friday/ /Friday to accommodate her Chemo tx days scheduled on Friday /Friday /Friday pt is asked to discuss with her Tool Room Machinist Dr Ellis offers no other complain hoping to go home tomorrow OBJECTIVE: Vital Signs-as noted below Exam: General-no sign of distress, very pleasant Eyes-sclera non icteric , PERRLA/EOMI ENT-moist oral mucosa Neck-no thyromegaly , trachea midline Lungs-diminished, + rales at base Heart-regular S1/S2 Abdomen-soft, non tender Extremities-trace bilat lower ext edema Neuro-AAO X3,no focal neurological deficit Lab data as noted below. ASSESSMENT & PLAN: Sinus Tachycardia/shortness of breath : Coreg dose increased to 25 mg BID multifactorial : possible due to vol overload , hypoxia S/p dialysis acute decompensated CHF with systolic dysfunction -Lung V/Q scan : Low probability of pulmonary embolus. Emphysematous change Ultrasound of lower extremities is negative. cont to monitor in Tele no evidence of pneumonia in Cxray , pro calcitonin level wnl Levaquin d/oz ACUTE CHF CHRONIC SYSTOLIC DYSFUNCTION hx of ischemic cardiomyopathy presented with vol overload .ECHO : Ejection Fraction = 25-30%. * There is severe global hypokinesis of the left ventricle. * The right ventricle is mildly dilated. * The right ventricular systolic function is mild to moderately reduced. * The right ventricular systolic function is reduced as assessed by tricuspid annular plane systolic excursion (TAPSE) (TAPSE <1.6 cm). * There is mild tricuspid regurgitation. * The estimated systolic PAP is 52mmHg. * Dilated inferior vena cava with reduced collapsability with sniff indicates an elevated right atrial pressure of 15 mmHg BNP on this admission is 33,000 and troponin 0.132-due to cardiac strain / hypoxia Type 2 NSTEMI given IV Lasix , vol status improved after dialysis Cardiology following appreciate input -END STAGE RENAL DISEASE ON DIALYSIS Right internal Jugular perm cath placed on 11/04/[address] Low Gets schedule - Dialysis on Friday, Friday, Friday pt is interested in changing schedule to for her chemo tx days -Nephrology -Dr Ellis consulted for HD , appreciate input DIFFUSE LARGE B CELL LYMPHOMA -on chemotherapy with Rituxan, Cytoxan, Etopisode, Vincristine, Prednisone, allopurinol (to prevent tumor lysis syndrome ) -follows with Heme Onc Dr Ranjan Dobbs TYPE 2 DM : Type 2 diabetes mellitus Hold metformin or glipizide, while in pt sliding scale insulin, basal Lantus Pharmacy consulted for glycemic control appreciate input DNR /DNI DVT PROPHYLAXIS moderate to high risk due malignancy /Lymphoma Sub q heparin DISPOSITION expected to be discharged home when medically stable Medicine follow up with Dr Murray at [facility] Heme onc follow up with Dr Ranjan Dobbs Vital Signs: Date Time Temp Pulse Resp B/P (MAP) Pulse Ox O2 Delivery O2 Flow Rate FiO2 11/17/17 10:15 94 113/75 11/17/17 10:00 93 105/65 11/17/17 09:45 95 104/66 11/17/17 09:30 93 111/64 11/17/17 09:15 98 115/68 11/17/17 08:56 95 112/69 11/17/17 08:56 36.8 102 112/74 (87) 11/17/17 08:00 37.2 105 19 117/77 (90) 96 11/17/17 08:00 96 Room Air 2.0 11/17/17 03:30 Room Air 11/17/17 03:15 36.9 107 19 105/68 (80) 93 Room Air 11/17/17 00:10 37.0 101 20 102/68 (79) 97 Room Air 11/17/17 00:10 Room Air 11/16/17 20:23 Room Air 11/16/17 19:45 36.4 96 18 111/77 (88) 99 Room Air 11/16/17 16:00 Room Air 11/16/17 15:47 36.8 94 20 103/70 (81) 99 Room Air 11/16/17 12:06 36.4 101 18 116/82 (93) 95 Room Air 11/16/17 12:00 Room Air Lab Results: Results Past 24 Hours Test 11/16/17 11:20 11/16/17 16:26 11/16/17 20:10 11/17/17 04:15 Range/Units Bedside Glucose 222 249 231 70-90 mg/dl White Blood Count 12.17 4.8-10.8 K/uL Red Blood Count 2.94 4.2-5.4 M/uL Hemoglobin 8.1 12.0-16.0 g/dL Hematocrit 26.3 37-47 % Mean Corpuscular Volume 89.5 80-100 fL Mean Corpuscular Hemoglobin 27.6 25-34 pg Mean Corpuscular Hemoglobin Concent 30.8 32-36 g/dl RDW Standard Deviation 55.6 36.4-46.3 fL RDW Coefficient of Variation 17.4 11.5-14.5 % Platelet Count 481 130-400 K/uL Mean Platelet Volume 8.7 7.4-10.4 fL Nucleated RBC Absolute Count (auto) 0.02 0-0 K/uL Nucleated Red Blood Cells % 0.1 % Test 11/17/17 06:17 Range/Units Bedside Glucose 123 70-90 mg/dl
[2017-11-17] VITALS (18 sets, daily range): BP systolic 100–117; BP diastolic 64–77; PULSE 82–107; TEMP 36.8–37.2; O2SAT 93–97
[2017-11-17 04:42] LABS: HEMATOCRIT 26.3 % (37-47); HEMOGLOBIN 8.1 g/dL (12.0-16.0); MEAN CELL VOLUME 89.5 fL (80-100); MEAN CORPUSCULAR HEMOGLOBIN 27.6 pg (25-34); MEAN CORPUSCULAR HGB CONC 30.8 g/dl (32-36); MEAN PLATELET VOLUME 8.7 fL (7.4-10.4); NUCLEATED RED BLOOD CELL ABS 0.02 K/uL (0-0); PLATELET COUNT 481 K/uL (130-400); RED CELL DISTRIBUTION WIDTH CV 17.4 % (11.5-14.5); RED CELL DISTRIBUTION WIDTH SD 55.6 fL (36.4-46.3); WHITE BLOOD COUNT 12.17 K/uL (4.8-10.8)
--- NOTE | 2017-11-17 06:50 | Nephrology Progress Note ---
Nephrology Progress Note Date of Service: Nov 17, 2017. Subjective 57 yo female with ESRD who presented with tachycardia and sob. pt feels much better. urinating well at about 1500 to 2 liters a day. does not necessarily restrict her fluids. pt comfortable. interested in switching to t/h/s secondary to ongoing chemo every 2 weeks --. Objective Date Time Temp Pulse Resp B/P (MAP) Pulse Ox O2 Delivery O2 Flow Rate FiO2 11/17/17 03:30 Room Air 11/17/17 03:15 36.9 107 19 105/68 (80) 93 Room Air 11/17/17 00:10 37.0 101 20 102/68 (79) 97 Room Air 11/17/17 00:10 Room Air 11/16/17 20:23 Room Air 11/16/17 19:45 36.4 96 18 111/77 (88) 99 Room Air 11/16/17 16:00 Room Air 11/16/17 15:47 36.8 94 20 103/70 (81) 99 Room Air 11/16/17 12:06 36.4 101 18 116/82 (93) 95 Room Air 11/16/17 12:00 Room Air 11/16/17 08:04 36.4 99 19 102/70 (81) 92 Room Air 11/16/17 08:00 Room Air Physical Exam: General-aaox3 Eyes-no scleral icterus ENT-mmm Neck-supple Lungs-cta Heart-tachy Abdomen-bs s/nt/nd Extremities-no c/c/e Neuro-nonfocal Current Inpatient Medications Medications (Trade) Dose Ordered Sig/Chantale Route Start Time Stop Time Status Last Admin Dose Admin Lorazepam (Ativan Tab) 0.5 mg Q6H PRN PO 11/14/17 04:30 12/14/17 04:29 11/14/17 11:04 0.5 MG Nitroglycerin (Nitrostat Tab) 0.4 mg UD PRN UT 11/14/17 04:30 12/14/17 04:29 Glucose (Glucose 40% Gel) 15-30 GRAMS 15 GRAMS... UD PRN PO 11/14/17 04:30 12/14/17 04:29 Glucose (Glucose Chew Tab) 4-8 Tablets 4 Tabl... UD PRN PO 11/14/17 04:30 12/14/17 04:29 Dextrose (Dextrose 50% 50ML Syringe) 25-50ML OF 50% DW IV FOR... UD PRN IV 11/14/17 04:30 12/14/17 04:29 Glucagon (Glucagon Inj) 1 mg UD PRN SQ 11/14/17 04:30 12/14/17 04:29 Miscellaneous Information (Consult Glycemic Management Pharmacy) 1 ea DAILY PRN N/A 11/14/17 05:06 12/14/17 05:05 Aspirin (Ecotrin Tab) 81 mg DAILY PO 11/14/17 09:00 12/14/17 08:59 11/16/17 10:00 81 MG Atorvastatin Calcium (Lipitor Tab) 80 mg DAILY PO 11/14/17 09:00 12/14/17 08:59 11/16/17 10:00 80 MG Clopidogrel Bisulfate (plAVix TAB) 75 mg QAM PO 11/14/17 09:00 12/14/17 08:59 11/16/17 10:00 75 MG Gabapentin (Neurontin Cap) 300 mg TID PO 11/14/17 09:00 12/14/17 08:59 11/16/17 20:14 300 MG Trazodone HCl (Desyrel Tab) 50 mg HS PO 11/14/17 21:00 12/14/17 20:59 11/16/17 20:13 50 MG Venlafaxine HCl (effeXOR EXTENDED REL CAP) 150 mg DAILY PO 11/14/17 09:00 12/14/17 08:59 11/16/17 10:00 150 MG Buspirone HCl (Buspar Tab) 20 mg BID PO 11/14/17 09:00 12/14/17 08:59 11/16/17 20:15 20 MG Heparin Sodium (Porcine) (Heparin 100 Unit/ml 5ml Flush) 5 ml PRN PRN IV 11/15/17 02:30 12/15/17 02:29 Acetaminophen (Tylenol Tab) 325 mg Q4H PRN PO 11/16/17 00:15 12/16/17 00:14 Sumatriptan Succinate (Imitrex Tab) 25 mg Q8H PRN PO 11/16/17 01:30 12/16/17 01:29 Insulin Glargine (Lantus Solostar Pen) 13 units DAILY SC 11/16/17 09:00 12/16/17 08:59 11/16/17 10:00 13 UNITS Carvedilol (Coreg Tab) 25 mg BID PO 11/16/17 21:00 12/15/17 08:59 11/16/17 20:14 25 MG Acetaminophen/ Hydrocodone Bitart ([place] 5/325 Tab) 1 tab Q6H PRN PO 11/16/17 12:30 11/30/17 12:29 Insulin Aspart (novoLOG ASPART) SLIDING SCALE If C... QDB SC 11/17/17 07:30 12/17/17 07:29 Insulin Aspart (novoLOG ASPART) SLIDING SCALE If C... TID@1100,1615,2100 [place] 11/16/17 16:15 12/16/17 16:14 11/16/17 20:16 4 UNITS Last 24 Hours Test 11/16/17 11:20 11/16/17 16:26 11/16/17 20:10 11/17/17 04:15 Bedside Glucose 222 mg/dl 249 mg/dl 231 mg/dl White Blood Count 12.17 K/uL Red Blood Count 2.94 M/uL Hemoglobin 8.1 g/dL Hematocrit 26.3 % Mean Corpuscular Volume 89.5 fL Mean Corpuscular Hemoglobin 27.6 pg Mean Corpuscular Hemoglobin Concent 30.8 g/dl RDW Standard Deviation 55.6 fL RDW Coefficient of Variation 17.4 % Platelet Count 481 K/uL Mean Platelet Volume 8.7 fL Nucleated RBC Absolute Count (auto) 0.02 K/uL Nucleated Red Blood Cells % 0.1 % Test 11/17/17 06:17 Bedside Glucose 123 mg/dl Assessment & Plan ESRD-for dialysis again today. urinating well and will continue to look for signs of renal recovery. will dialyze on a 3k bath and attempt 2 liters fluid removal. educating pt on the importance of fluid restriction. Anemia-transfuse prn. no procrit with underlying malignancy.
[2017-11-17] MEDS ORDERED: INSULIN ASPART 100 UNITS/ML 3 ML PEN SC SCH ×2 (07:30→11:00)
[2017-11-17] MEDS: ASPIRIN 81 MG ECTAB PO SCH (07:43)
[2017-11-17] MEDS: CLOPIDOGREL BISULFATE 75 MG TAB PO SCH (07:43)
[2017-11-17] MEDS: VENLAFAXINE HCL XR 150 MG CAPXR PO SCH (07:43)
[2017-11-17] MEDS: GABAPENTIN 300 MG CAP PO SCH ×2 (07:43→13:41)
[2017-11-17] MEDS: CARVEDILOL 25 MG TAB PO SCH (07:44)
[2017-11-17] MEDS: ATORVASTATIN 40 MG TAB PO SCH (07:44)
[2017-11-17] MEDS: INSULIN GLARGINE SOLOSTAR 100 UNITS/ML 3 ML PEN SC SCH (07:47)
--- NOTE | 2017-11-17 10:16 | Cardiology Follow-Up ---
Subjective Subjective Date of Service: Nov 17, 2017. Pt evaluation today including: conversation w/ patient, physical exam, chart review, lab review, review of studies, review of inpatient medication list Additional Details: Pt seen and examined on HD, states that she's feeling ok. Still getting used to dialysis treatments but denies cp, sob, palpitations, lightheadedness or dizziness. Tele reviewed: sinus rhythm/tachycardia running 90's-110's Problem List Medical Problems: (1) Acute bronchitis Status: Acute (2) Acute chest pain Status: Acute (3) Anemia Status: Acute (4) Anemia Status: Acute (5) Elevated troponin Status: Acute (6) Enlarged lymph node Status: Acute (7) Hypomagnesemia Status: Acute (8) Hypoxia Status: Acute (9) Neck pain on right side Status: Acute (10) Pulmonary edema Status: Acute Review of Systems Respiratory: + cough, + wheezing, No see HPI, No sputum, No shortness of breath , No dyspnea on exertion, No dyspnea at rest, No hemoptysis, No problem reported Cardiac: No see HPI, No chest pain, No orthopnea, No PND, No edema, No claudication, No palpitations, No problem reported Female : + problem reported Objective Vital Signs Last Vital Signs Documentation Date Time Temp Pulse Resp B/P (MAP) Pulse Ox O2 Delivery O2 Flow Rate FiO2 11/17/17 10:00 93 105/65 11/17/17 08:56 36.8 11/17/17 08:00 19 96 11/17/17 08:00 Room Air 2.0 Physical Exam: General Appearance: WD/WN, no apparent distress Eyes: bilateral eyes normal inspection, bilateral eyes PERRL, bilateral eyes EOMI ENT: normal ENT inspection, hearing grossly normal, pharynx normal Neck: supple, no adenopathy, thyroid normal, no JVD, no carotid bruits, trachea midline Respiratory/Chest: chest non-tender, lungs clear, normal breath sounds, no respiratory distress, no accessory muscle use Cardiovascular: regular rate, rhythm, no edema, no JVD, + tachycardia Abdomen: normal bowel sounds, non tender, soft, no organomegaly Extremities: normal inspection, no pedal edema, no calf tenderness Neurologic/Psychiatric: wireless team member II-XII nml as tested, no motor/sensory deficits, alert, normal mood/affect, oriented x 3, + depressed affect Skin: normal color, warm/dry, no rash Lymphatic: no adenopathy Assessment and Plan 1. ESRD new to hemodialysis, still becoming accustomed believe elevated heart rates are likely a sign of this 2. mixed cardiomyopathy severe evidence based beta isael has now been maximized but still with increased rates if rates do not significantly improve after acclimating believe she would be a very good candidate for Entresto will not start at this time but she is scheduled to see primary preschool teacher Dr. Matute as an outpatient soon will ask case management to look into getting med approved for her (will also refer to [facility] heart failure pharmacist) if rates remain elevated at outpatient visit then can likely start at that time cont aspirin and atorvastatin ok to d/c to home from cardiac standpoint
[2017-11-17] MEDS ORDERED: CRG25 PO (11:06)
--- NOTE | 2017-11-17 11:12 | Discharge Instructions ---
Discharge Instructions Date of Service Nov 17, 2017. Admission Reason for Admission: Dyspnea, On Dialysis Discharge Discharge Diagnosis / Problem: ACUTE CHF SYSTOLIC DYSFUNCTION /ISHEMIC CARDIOMYOPATHY /ESRD ON HD Discharge Goals Goal(s): Decrease discomfort, Improve function, Increase independence, Improve disease control, Diagnostic testing, Therapeutic intervention Activity Recommendations Activity Limitations: resume your previous activity . Instructions / Follow-Up Instructions / Follow-Up HOSPITAL FOLLOW UP : WITH DR PENDLETON , OFFICE WILL CALL WITH APPOINTMENT CARDIOLOGY FOLLOW UP : 11/19/2017 9:00 AM Michael Matute DO Cardiology, [facility] Call your Primary Care doctor if any of the following symptoms or problems start or get worse: * Shortness of breath or difficulty breathing * Wake up at night short of breath * Chest pain * Cough * Swelling of your hands, feet, or legs * More fatigued or tired with your normal activity * Palpitations - sudden fast heart beats WEIGHT * Weigh yourself every morning after using the bathroom. * Use the same scale. * Wear the same amount of clothing. * Write your weight down on a chart. * Call your Primary Care doctor if you gain more than 2-3 pounds in 1-2 days. MEDICATIONS * Use this discharge instruction sheet for medication instructions. * Take your medications at the time your doctor ordered. * Do not skip a dose of your medicines. * If you miss a dose of medicine, take it as soon as possible, but DO NOT DOUBLE A DOSE. * Read your medicine information when you get home. * Know all of the side effects of your medicine. If in doubt, ask your pharmacist * Call your Primary Care doctor's office if you have any side effects. * Be sure all of your doctors know what medicine and herbs you take (including cold, flu, and herbal medicine). Take the following with you to your follow-up doctor appointments: * Weight Chart * Medication List * List of questions Do not drink excessive alcohol, beer or wine. Current Hospital Diet Patient's current hospital diet: AHA Diet (Heart Healthy), Diabetes Type 2 Diet Discharge Diet Recommended Diet: AHA Diet (Heart Healthy), Diabetes Type 2 Diet, Renal Diet Pending Studies Studies pending at discharge: no Laboratory Results Hemoglobin A1c Test 09/11/17 04:11 Range/Units Estimated Average Glucose 292 mg/dl Hemoglobin A1c 11.8 H 4.5-5.6 % Medical Emergencies . Who to Call and When: Call 911 or go to the Emergency Room if: * If at any time you feel your situation is an emergency * You have tightness or pain in your chest that does not go away with rest or Nitroglycerin * You are very short of breath even with rest . Non-Emergent Contact Non-Emergency issues call your: Primary Care Provider . . "Provider Documentation" section prepared by Mary Kate Martinez. . VTE Core Measure Inpt VTE Proph given/why not?: Unfractionated heparin SQ
--- NOTE | 2017-11-17 13:40 | Progress Note ---
Subjective Date of Service: Nov 17, 2017. Subjective Pt evaluation today including: conversation w/ patient, physical exam, lab review, review of studies, conversation w/ documentation consultant, review of inpatient medication list Saw/examined the patient in room 237 She is in good spirits getting dialysis currently in the room HRs are improved in the upper 90s this morning no other symptoms to note Problem List Medical Problems: (1) Acute bronchitis Status: Acute (2) Acute chest pain Status: Acute (3) Anemia Status: Acute (4) Anemia Status: Acute (5) Elevated troponin Status: Acute (6) Enlarged lymph node Status: Acute (7) Hypomagnesemia Status: Acute (8) Hypoxia Status: Acute (9) Neck pain on right side Status: Acute (10) Pulmonary edema Status: Acute Review of Systems Constitutional: No fever, No chills, No weakness Respiratory: No cough, No sputum, No wheezing, No shortness of breath, No dyspnea on exertion Cardiac: No chest pain, No edema, No palpitations Abdomen: No pain, No nausea, No vomiting, No diarrhea Medications Current Inpatient Medications Medications (Trade) Dose Ordered Sig/Chantale Route Start Time Stop Time Status Last Admin Dose Admin Lorazepam (Ativan Tab) 0.5 mg Q6H PRN PO 11/14/17 04:30 12/14/17 04:29 11/14/17 11:04 0.5 MG Nitroglycerin (Nitrostat Tab) 0.4 mg UD PRN UT 11/14/17 04:30 12/14/17 04:29 Glucose (Glucose 40% Gel) 15-30 GRAMS 15 GRAMS... UD PRN PO 11/14/17 04:30 12/14/17 04:29 Glucose (Glucose Chew Tab) 4-8 Tablets 4 Tabl... UD PRN PO 11/14/17 04:30 12/14/17 04:29 Dextrose (Dextrose 50% 50ML Syringe) 25-50ML OF 50% DW IV FOR... UD PRN IV 11/14/17 04:30 12/14/17 04:29 Glucagon (Glucagon Inj) 1 mg UD PRN SQ 11/14/17 04:30 12/14/17 04:29 Miscellaneous Information (Consult Glycemic Management Pharmacy) 1 ea DAILY PRN N/A 11/14/17 05:06 12/14/17 05:05 Aspirin (Ecotrin Tab) 81 mg DAILY PO 11/14/17 09:00 12/14/17 08:59 11/17/17 07:43 81 MG Atorvastatin Calcium (Lipitor Tab) 80 mg DAILY PO 11/14/17 09:00 12/14/17 08:59 11/17/17 07:44 80 MG Clopidogrel Bisulfate (plAVix TAB) 75 mg QAM PO 11/14/17 09:00 12/14/17 08:59 11/17/17 07:43 75 MG Gabapentin (Neurontin Cap) 300 mg TID PO 11/14/17 09:00 12/14/17 08:59 11/17/17 07:43 300 MG Trazodone HCl (Desyrel Tab) 50 mg HS PO 11/14/17 21:00 12/14/17 20:59 11/16/17 20:13 50 MG Venlafaxine HCl (effeXOR EXTENDED REL CAP) 150 mg DAILY PO 11/14/17 09:00 12/14/17 08:59 11/17/17 07:43 150 MG Buspirone HCl (Buspar Tab) 20 mg BID PO 11/14/17 09:00 12/14/17 08:59 11/17/17 07:43 20 MG Heparin Sodium (Porcine) (Heparin 100 Unit/ml 5ml Flush) 5 ml PRN PRN IV 11/15/17 02:30 12/15/17 02:29 Acetaminophen (Tylenol Tab) 325 mg Q4H PRN PO 11/16/17 00:15 12/16/17 00:14 Sumatriptan Succinate (Imitrex Tab) 25 mg Q8H PRN PO 11/16/17 01:30 12/16/17 01:29 Insulin Glargine (Lantus Solostar Pen) 13 units DAILY SC 11/16/17 09:00 12/16/17 08:59 11/17/17 07:47 13 UNITS Carvedilol (Coreg Tab) 25 mg BID PO 11/16/17 21:00 12/15/17 08:59 11/17/17 07:44 25 MG Acetaminophen/ Hydrocodone Bitart ([place] 5/325 Tab) 1 tab Q6H PRN PO 11/16/17 12:30 11/30/17 12:29 Insulin Aspart (novoLOG ASPART) SLIDING SCALE If C... ACHS SC 11/17/17 11:00 12/17/17 10:59 Objective Vital Signs Date Time Temp Pulse Resp B/P (MAP) Pulse Ox O2 Delivery O2 Flow Rate FiO2 11/17/17 11:56 90 109/66 (80) 11/17/17 11:45 85 115/72 11/17/17 11:41 36.8 82 17 100/69 (79) 93 Room Air 11/17/17 11:30 88 109/70 11/17/17 11:15 82 100/69 11/17/17 11:00 94 112/76 11/17/17 10:45 91 103/73 11/17/17 10:30 93 109/68 11/17/17 10:15 94 113/75 11/17/17 10:00 93 105/65 11/17/17 09:45 95 104/66 11/17/17 09:30 93 111/64 11/17/17 09:15 98 115/68 11/17/17 08:56 95 112/69 11/17/17 08:56 36.8 102 112/74 (87) 11/17/17 08:00 37.2 105 19 117/77 (90) 96 11/17/17 08:00 96 Room Air 2.0 11/17/17 03:30 Room Air 11/17/17 03:15 36.9 107 19 105/68 (80) 93 Room Air 11/17/17 00:10 37.0 101 20 102/68 (79) 97 Room Air 11/17/17 00:10 Room Air 11/16/17 20:23 Room Air 11/16/17 19:45 36.4 96 18 111/77 (88) 99 Room Air 11/16/17 16:00 Room Air 11/16/17 15:47 36.8 94 20 103/70 (81) 99 Room Air Physical Exam General Appearance: no apparent distress, + pertinent finding (chronically ill) Respiratory/Chest: no respiratory distress, no accessory muscle use, + decreased breath sounds Cardiovascular: no edema, no murmur, + tachycardia Abdomen: normal bowel sounds, non tender, soft Extremities: normal range of motion, non-tender, normal inspection, no pedal edema, no calf tenderness Neurologic/Psychiatric: amf mechanic II-XII nml as tested, no motor/sensory deficits, alert, oriented x 3, + depressed affect Laboratory Results Last 24 Hours Test 11/16/17 16:26 11/16/17 20:10 11/17/17 04:15 11/17/17 06:17 Bedside Glucose 249 mg/dl 231 mg/dl 123 mg/dl White Blood Count 12.17 K/uL Red Blood Count 2.94 M/uL Hemoglobin 8.1 g/dL Hematocrit 26.3 % Mean Corpuscular Volume 89.5 fL Mean Corpuscular Hemoglobin 27.6 pg Mean Corpuscular Hemoglobin Concent 30.8 g/dl RDW Standard Deviation 55.6 fL RDW Coefficient of Variation 17.4 % Platelet Count 481 K/uL Mean Platelet Volume 8.7 fL Nucleated RBC Absolute Count (auto) 0.02 K/uL Nucleated Red Blood Cells % 0.1 % Test 11/17/17 11:19 Bedside Glucose 129 mg/dl Assessment and Plan This is a 57 year old female with a PMH of large B cell lymphoma and ongoing chemotherapy, hx. of chemo-induced neutropenia, pancytopenia, CAD s/p stenting, ischemic cardiomyopathy, systolic CHF, DM2, HTN, HLD ESRD on HD patient with dialysis today to remove more fluid plan for -W- dialysis as outpatient electrolytes are stable no other issues at this time okay for d/c from nephrology standpoint Mixed Cardiomyopathy, Severe Acute on Chronic Systolic CHF appreciate cardiology input plan currently is to discharge on the increase Coreg dose of 25mg BID Lung V/Q scan - low probability of PE, bilateral LE U/S - no acute DVTs outpatient cardiology follow-up for possible starting Entresto volume overload improving with HD continue HD as outpatient as above 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
--- NOTE | 2017-11-17 13:53 | Discharge Instructions ---
Discharge Instructions Date of Service Nov 17, 2017. Admission Reason for Admission: Dyspnea, On Dialysis Discharge Discharge Diagnosis / Problem: End stage renal disease on hemodialysis, acute on chronic systolic CHF Discharge Goals Goal(s): Decrease discomfort, Improve function, Diagnostic testing, Therapeutic intervention Activity Recommendations Activity Limitations: resume your previous activity . Instructions / Follow-Up Instructions / Follow-Up Please follow-up with CHELE Romero (covering for Dr. Murray) on November 21 at 9:30AM * Your dose of Coreg has increased to 25mg twice a day * You will need to continue dialysis on Lyufiq-Gicuxaurz-Aajped * chemotherapy will now be once a week - please follow-up with Dr. Ranjan Dobbs , hematology * Please follow-up with cardiology, Dr. Matute, on November 19 at 9AM Call your Primary Care doctor if any of the following symptoms or problems start or get worse: * Shortness of breath or difficulty breathing * Wake up at night short of breath * Chest pain * Cough * Swelling of your hands, feet, or legs * More fatigued or tired with your normal activity * Palpitations - sudden fast heart beats WEIGHT * Weigh yourself every morning after using the bathroom. * Use the same scale. * Wear the same amount of clothing. * Write your weight down on a chart. * Call your Primary Care doctor if you gain more than 2-3 pounds in 1-2 days. MEDICATIONS * Use this discharge instruction sheet for medication instructions. * Take your medications at the time your doctor ordered. * Do not skip a dose of your medicines. * If you miss a dose of medicine, take it as soon as possible, but DO NOT DOUBLE A DOSE. * Read your medicine information when you get home. * Know all of the side effects of your medicine. If in doubt, ask your pharmacist * Call your Primary Care doctor's office if you have any side effects. * Be sure all of your doctors know what medicine and herbs you take (including cold, flu, and herbal medicine). Take the following with you to your follow-up doctor appointments: * Weight Chart * Medication List * List of questions Do not drink excessive alcohol, beer or wine. Current Hospital Diet Patient's current hospital diet: AHA Diet (Heart Healthy), Diabetes Type 2 Diet Discharge Diet Recommended Diet: AHA Diet (Heart Healthy), Diabetes Type 2 Diet Fluid Restriction: 1500 ml (6 cups) Pending Studies Studies pending at discharge: no Laboratory Results Hemoglobin A1c Test 09/11/17 04:11 Range/Units Estimated Average Glucose 292 mg/dl Hemoglobin A1c 11.8 H 4.5-5.6 % Medical Emergencies . Who to Call and When: Call 911 or go to the Emergency Room if: * If at any time you feel your situation is an emergency * You have tightness or pain in your chest that does not go away with rest or Nitroglycerin * You are very short of breath even with rest . Non-Emergent Contact Non-Emergency issues call your: Primary Care Provider . . "Provider Documentation" section prepared by Matilde Delgadillo. . VTE Core Measure Inpt VTE Proph given/why not?: Unfractionated heparin SQ
--- NOTE | 2017-11-17 14:17 | Discharge Summary ---
Discharge Summary Date of Service Nov 17, 2017. Discharge Summary Admission Date: Nov 14, 2017 at 03:57 Discharge Date: Nov 17, 2017 Discharge Disposition: Home Principal Diagnosis: ESRD on HD Mixed Cardiomyopathy Acute on Chronic Systolic CHF Medication Reconciliation New Medications: Carvedilol (Carvedilol) 25 Mg Tab 25 MG PO BID for 30 Days, #60 TAB 4 Refills Continued Medications: Albuterol Hfa (Ventolin Hfa) 200 Puffs/92776 Mcg Aers 1-2 PUFFS INH Q4 PRN for SOB/Wheezing Amlodipine (Norvasc) 2.5 Mg Tab 2.5 MG PO DAILY, TAB Ascorbic Acid (Vitamin C) 500 Mg Tab 500 MG PO TID Aspirin (Aspirin 81) 81 Mg Tab 81 MG PO DAILY Atorvastatin (Lipitor) 80 Mg Tab 80 MG PO DAILY Buspirone Hcl (Buspirone Hcl) 10 Mg Tab 20 MG PO BID, TAB 1 Refill Clopidogrel Bisulfate (Clopidogrel) 75 Mg Tab 75 MG PO QAM, #90 TAB 3 Refills Fenofibrate Micronized (Tricor) 67 Mg Cap 67 MG PO DAILY Gabapentin (Neurontin) 300 Mg Cap 300 MG PO TID Glipizide (Glucotrol) 10 Mg Tab 20 TAB PO HS Glipizide (Glucotrol) 10 Mg Tab 10 MG PO QAM, TAB Home O2 Therapy (Oxygen) Gas 2 LITERS NA PRN, BTL Hydrocodone/Acetaminophen 5MG/325MG ([place] 5MG/325MG) Tab 2 TABLET PO Q6 PRN for Pain Insulin Aspart (Novolog Flexpen) 100 Units/Ml Inj 1 DOSE SC TIDM TAKE NOVOLOG THREE TIMES A DAY WITH MEALS BASED ON BSG BSG= 120-130 = 0 131-140 = 6 UNITS 141-150 = 12 UNITS AND SO ON Insulin Detemir (Levemir Flextouch) 100 Unit/Ml Inj 10 UNITS SC HS Lorazepam (Lorazepam) 0.5 Mg Tab 0.5 MG PO Q6H PRN for Anxiety/Agitation, TAB Metformin Hcl (Glucophage) 500 Mg Tab 1000 MG PO BID, TAB Nitroglycerin (Nitrostat) 0.4 Mg Tab 0.4 MG UT UD PRN for Chest Pain PLACE ONE TAB UNDER THE TOUNGUE EVERY 5 MINUTES NEEDED FOR CHEST PAIN. TAKE NO MORE THAN 3 TABS. IF CHEST PAIN IS NOT RELIEVED BY 3 TABS CALL 911. Trazodone Hcl (Desyrel) 50 Mg Tab 50 MG PO HS, TAB Venlafaxine Hcl (Effexor Xr) 150 Mg Cap 1 CAP PO DAILY, CAP 1 Refill 150mg + 37.5 mg to equal 187.5 daily Venlafaxine Hcl (Effexor Xr) 37.5 Mg Cap 1 CAP PO DAILY, CAP 3 Refills take with the 150mg to equal 187.5 mg Discontinued Medications: Carvedilol (Carvedilol) 6.25 Mg Tab 6.25 MG PO BID for 15 Days, #30 TAB Admission Information HPI (per Admitting provider): 57 year old F on chemotherapy for lymphoma and renal failure requiring dialysis Friday, Friday, Friday via jugular catheter who presented to [facility] for shortness of breath/tachycardia and transferred to [facility] because she follows [facility] doctors at [place], [place] and also because [facility] does not have dialysis services. In [facility], patient was tachycardic to 120 and had elevated D-Dimer, she had a CT scan without contrast which found 1) Multifocal bilateral patchy airspace disease is identified suspicious for multifocal pneumonia 2) small pericardial effusion Patient was given Levaquin 500 mg as differentials considered was bronchitis vs pneumonia. Also other differential of acute systolic CHF or pulmonary embolism Patient arrived to [facility] still tachycardic in the 120s, breathing and speaking on room air, EKG sinus tachycardia. Patient was ordered carvedilol 12.5 mg x 1 and Lasix 40 mg IV. IV heparin ordered in case patient has pulmonary embolism. Ultrasound of lower extremities without DVT. Prior to initiation of heparin drip, patient's heart rate decreased to 110 bpm while sleeping Other History: Patient had recently been admitted to [facility] on 11/02/17 for generalized pain with fever and tachycardia, evaluated by cardiology for the tachycardia and fluid overload, no source of bacterial infection identified on microbiology labs, and discharged on 11/08/17 Hospital Course This is a 57 year old female with a PMH of large B cell lymphoma and ongoing chemotherapy, hx. of chemo-induced neutropenia, pancytopenia, CAD s/p stenting, ischemic cardiomyopathy, systolic CHF, DM2, HTN, HLD ESRD on HD patient with dialysis today to remove more fluid plan for -W- dialysis as outpatient electrolytes are stable no other issues at this time okay for d/c from nephrology standpoint Mixed Cardiomyopathy, Severe Acute on Chronic Systolic CHF appreciate cardiology input plan currently is to discharge on the increase Coreg dose of 25mg BID Lung V/Q scan - low probability of PE, bilateral LE U/S - no acute DVTs outpatient cardiology follow-up for possible starting Entresto volume overload improving with HD continue HD as outpatient as above 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 Total time spent on discharge = 35 minutes This includes examination of the patient, discharge planning, medication reconciliation, and communication with other providers. Discharge Instructions Please follow-up with CHELE Romero (covering for Dr. Murray) on November 21 at 9:30AM * Your dose of Coreg has increased to 25mg twice a day * You will need to continue dialysis on [id number]-Tajrsd * chemotherapy will now be once a week - please follow-up with Dr. Ranjan Dobbs , hematology * Please follow-up with cardiology, Dr. Matute, on November 19 at 9AM Call your Primary Care doctor if any of the following symptoms or problems start or get worse: * Shortness of breath or difficulty breathing * Wake up at night short of breath * Chest pain * Cough * Swelling of your hands, feet, or legs * More fatigued or tired with your normal activity * Palpitations - sudden fast heart beats WEIGHT * Weigh yourself every morning after using the bathroom. * Use the same scale. * Wear the same amount of clothing. * Write your weight down on a chart. * Call your Primary Care doctor if you gain more than 2-3 pounds in 1-2 days. MEDICATIONS * Use this discharge instruction sheet for medication instructions. * Take your medications at the time your doctor ordered. * Do not skip a dose of your medicines. * If you miss a dose of medicine, take it as soon as possible, but DO NOT DOUBLE A DOSE. * Read your medicine information when you get home. * Know all of the side effects of your medicine. If in doubt, ask your pharmacist * Call your Primary Care doctor's office if you have any side effects. * Be sure all of your doctors know what medicine and herbs you take (including cold, flu, and herbal medicine). Take the following with you to your follow-up doctor appointments: * Weight Chart * Medication List * List of questions Do not drink excessive alcohol, beer or wine.
== END 2017-11-17 14:24 | disposition home or self-care (01) | DRG 682 ==
LOC: EEVIPCON 03:57 → C.2T 03:57
PROVIDERS: ADMIT Hospitalist; ATTEND Family Medicine
DX: N18.6 End stage renal disease (principal); I50.23 Acute on chronic systolic (congestive) heart failure; C83.31 Diffuse large B-cell lymphoma, lymph nodes of head, face, and neck; Z66 Do not resuscitate; I25.10 Atherosclerotic heart disease of native coronary artery without angina pectoris; E11.9 Type 2 diabetes mellitus without complications; E78.5 Hyperlipidemia, unspecified; I11.0 Hypertensive heart disease with heart failure; I25.5 Ischemic cardiomyopathy; E66.9 Obesity, unspecified; F60.5 Obsessive-compulsive personality disorder; G47.33 Obstructive sleep apnea (adult) (pediatric); Z82.49 Family history of ischemic heart disease and other diseases of the circulatory system; I25.2 Old myocardial infarction; Z87.891 Personal history of nicotine dependence; Z79.82 Long term (current) use of aspirin; Z79.4 Long term (current) use of insulin; Z99.2 Dependence on renal dialysis